=== PATIENT | female | born 1965 | race Caucasian/White ===

== ENCOUNTER 2019-08-01 15:15 | Emergency (ER) | payer OTHER, SELFPAY ==
--- NOTE | ~2019-08-01 | XR_ITS ---
EXAMINATION: XR chest 2V DATE: 08/01/2019 17:01 INDICATION: Transient alteration of awareness TECHNIQUE: AP and lateral views of the chest are obtained. COMPARISON: 07/31/2016 FINDINGS: The lungs are free of acute opacities. There is no pleural effusion or pneumothorax. The ca rdiomediastinal silhouette is normal. There is mild thoracic spondylosis. IMPRESSION: 1. No acute cardiopulmonary abnormality. Reviewed, dictated and finalized at location A.
--- NOTE | ~2019-08-01 | CT_ITS ---
EXAMINATION: CT brain wo con INDICATION: Transient alteration of awareness COMPARISON: None TECHNIQUE: Standard unenhanced head CT. The dose-length product (DLP) was 605.33 mGy-cm. The mA was a djusted according to patient size. Iterative reconstruction technique was employed. FINDINGS: There is no acute intraparenchymal hemorrhage. No evidence of mass lesion. No evidence of a cute infarction. There is mild periventricular and subcortical hypodensity probably related to small vessel ischemic disease. There is mild prominence of the sulci and ventricles related to cerebral atr ophy. Intracranial calcified cerebral atherosclerosis is noted. There are no extra-axial collections. There is no mass effect or midline shift. The orbits and soft tissues are unremarkable. The visuali zed sinuses and mastoid air cells are well aerated. IMPRESSION: 1. No acute intracranial abnormality. 2. Age related findings. Reviewed, dictated and finalized at location A.
[2019-08-01 15:16] VITALS: BP 125/67; PULSE 65; RESP 20; TEMP 36.6; O2SAT 100
--- NOTE | 2019-08-01 15:39 | ECG_ITS ---
Measurements Intervals [place] Rate: 64 P: -2 AL: 151 QRS: -28 QRSD: 94 T: 64 QT: 405 QTc: 420 Interpretive Statements SINUS RHYTHM VOLTAGE CRITERIA FOR LVH BORDERLINE R WAVE PROGRESSION, ANTERIOR LEADS BORDERLINE ECG Electronically Signed On 08-02-2019 7:12:55 CDT by Ruel Castanon D.O.
[2019-08-01 15:59] LABS: Basophils Percent Auto 0.6 % (0.2-1.2); Eosinophils Absolute Auto 0.4 K/mm3 (0-0.3); Eosinophils Percent Auto 5.4 % (0-4.4); Hematocrit 34.1 % (37.0-47.0); Hemoglobin 11.6 g/dL (12.0-15.0); Immature Granulocyte Absolute 0.02 K/mm3 (0.00-0.031); Immature Granulocyte Percent A 0.3 % (0-0.5); Lymphocytes Absolute Auto 0.97 K/mm3 (0.9-3.2); Lymphocytes Percent Auto 14.3 % (18.3-44.2); Mean Corpuscular Hemoglobin 30.1 pg (26-34); Mean Corpuscular Volume 88.6 fl (80-100); Monocytes Absolute Auto 0.3 K/mm3 (0.1-0.6); Monocytes Percent Auto 3.7 % (2.6-8.5); Neutrophils Absolute Auto 5.2 K/mm3 (1.3-6.7); Neutrophils Percent Auto 75.7 % (45.5-73.1); Platelet Count Result 232 k/mm3 (150-375); Red Blood Count 3.85 M/mm3 (4.2-5.4); White Blood Count 6.8 K/mm3 (4.5-10.0)
--- NOTE | 2019-08-01 16:04 | ED.SYNCOPE ---
HPI - Syncope General Chief Complaint: Syncope Stated Complaint: SYNCOPE Time Seen by Provider: 08/01/19 15:28 Source: patient Mode of arrival: EMS Limitations: no limitations History of Present Illness HPI narrative: This is a 54 year old female that presents to the ER for syncopal episode today. Reports she was at her endocrinologists office and they were finishing up her appointment. Reports she started to feel lightheaded. Reports she had a mask on for about an hour and was getting hot as well. Reports she then passed out. Reports she came back to quickly and then vomited. Reports she then passed out again and came back to quickly. Reports she was sent here for further evaluation. Denies any symptoms currently. Denies fever, palpitations, chest pain, shortness of breath, dizziness, weakness, or numbness. Related Data Home Medications Medication Instructions Recorded Confirmed aspirin 81 mg tablet,delayed 81 mg PO DAILY 08/01/19 08/01/19 release blood sugar diagnostic #10 each 08/01/19 carvedilol 6.25 mg tablet 6.25 mg PO Q12H 08/01/19 clopidogrel 75 mg tablet 75 mg PO DAILY 08/01/19 08/01/19 ergocalciferol (vitamin D2) 1,250 1,250 mcg PO WEEKLY 08/01/19 08/01/19 mcg (50,000 unit) capsule folic acid 1 mg tablet 5 mg PO DAILY tablet 08/01/19 08/01/19 insulin lispro 100 unit/mL 100 - 120 unit CONTINUOUS 08/01/19 08/01/19 subcutaneous solution SUBCUTANEOUS INFUSION DAILY ml lorazepam 0.5 mg tablet 0.5 mg PO DAILY PRN 08/01/19 losartan 50 mg tablet 50 mg PO DAILY 08/01/19 methotrexate sodium 2.5 mg tablet 15 mg PO WEEKLY tablet 08/01/19 rosuvastatin 5 mg tablet 5 mg PO DAILY 08/01/19 Allergies Allergy/AdvReac Type Severity Reaction Status Date / Time itraconazole Allergy Mild Verified 07/31/16 07:33 Lamisil Allergy Unknown flushing Uncoded 08/30/18 13:35 Review of Systems Review of Systems: Narrative: CONSTITUTIONAL: Denies fever CARDIOVASCULAR: Denies chest pain, palpitations RESPIRATORY: Denies dyspnea. GASTROINTESTINAL: Reports nausea, vomiting NEUROLOGIC: Denies headache, numbness, or weakness. 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 HEAD: Normocephalic, atraumatic. EYES: PERRLA and EOMI. ENT: Nares clear, no rhinorrhea or epistaxis. Mucous membranes moist. Oropharynx without tonsillar hypertrophy exudate or other lesions. Bilateral TMs pearly valadez non-bulging NECK: Supple. No adenopathy or masses. CHEST: Clear to auscultation. No respiratory distress. No wheezes rales or rhonchi HEART: Regular rate and rhythm. No murmur heard. Normal peripheral pulses. EXTREMITIES: Normal range of motion. No edema. Strength equal in bilateral upper and lower extremities SKIN: Warm, dry, no rash. NEURO: No focal deficits. Alert and oriented x3. Cranial nerves II through XII grossly intact. Normal [id number]. Normal [id number] PSYCH: Normal mood and affect Course Consultations Consultation #1: Spoke with Dr. Norris about patient and work-up will follow-up in clinic. Date: 08/01/19 Time: 17:59 Vital Signs Vital signs: Vital Signs Temperature 97.8 F 08/01/19 15:16 Pulse Rat
[2019-08-01 16:11] LABS: Alanine Aminotransferase 21 U/L (4-35); Albumin Level 3.3 g/dL (3.5-5.1); Alkaline Phosphatase 70 U/L (38-126); Aspartate Amino Transferase 24 U/L (14-36); Bilirubin,Total 0.4 mg/dL (0.2-1.3); Blood Urea Nitrogen 29 mg/dL (7-17); Calcium 8.6 mg/dL (8.4-10.2); Carbon Dioxide 22 mmol/L (22-30); Chloride 109 mmol/L (98-107); Estimated CRCL calculation 39 ml/min; Estimated Glomerular Filt Rate 33; Glucose 159 mg/dL (65-105); Potassium 4.4 mmol/L (3.4-5.0); Sodium 136 mmol/L (137-145)
[2019-08-01 16:14] LABS: Hypochromasia 1+ (NORMAL); Platelet Estimate Adequate (Adequate)
[2019-08-01 16:22] LABS: Troponin I < 0.012 ng/mL (0.000-0.034)
[2019-08-01] MEDS: SODIUM CHLORIDE 0.9% IV 1,000 ML 999 ML IV CONT (16:27)
[2019-08-01 17:20] VITALS: BP 163/80; PULSE 66
[2019-08-01 17:22] VITALS: BP 163/78
[2019-08-01 17:23] VITALS: BP 149/77; PULSE 73
== END 2019-08-01 18:11 | disposition home or self-care (01) ==
PROVIDERS: Physician Assistant; Emergency Provider Emergency Medicine; PCP Family Medicine Adolescent Medicine
DX: R55 Syncope and collapse (principal); I10 Essential (primary) hypertension; M06.9 Rheumatoid arthritis, unspecified; E78.00 Pure hypercholesterolemia, unspecified; Z79.82 Long term (current) use of aspirin; E11.9 Type 2 diabetes mellitus without complications; Z79.4 Long term (current) use of insulin
CPT/HCPCS: 36415; 70450; 71046; 80053; 84484; 85025; 93005; 96360; 99284; J7030

== ENCOUNTER 2020-10-31 20:36 | Emergency (ER) | payer BC, SELFPAY ==
--- NOTE | ~2020-10-31 | XR_ITS ---
XR chest 2V DATE: 10/31/2020 21:07 INDICATION: Midsternal chest pain, jaw pain for one day. History of myocardial infarctions 6 years ag o. TECHNIQUE: PA and lateral views COMPARISON: 08/01/2019 AP and lateral chest FINDINGS: There is left basilar infiltrate and/or atelectasis and mild left pleural effusion. Minimal atelectasis at the right lung base. Heart size appears normal. No hilar or mediastinal enlargement. IMPRESSION: Left basilar infiltrate and/or atelectasis, mild left pleural effusion Minimal right basilar atelectasis Reviewed, dictated and finalized at location A. IMPRESSION: Left basilar infiltrate and/or atelectasis, mild left pleural effus ion Minimal right basilar atelectasis
--- NOTE | 2020-10-31 20:38 | ECG_ITS ---
Measurements Intervals [place] Rate: 88 P: 33 [place]: 145 QRS: -8 QRSD: 86 T: 68 QT: 366 QTc: 443 Interpretive Statements SINUS RHYTHM VOLTAGE CRITERIA FOR LVH BORDERLINE R WAVE PROGRESSION, ANTERIOR LEADS BORDERLINE ST-T WAVE ABNORMALITY- HIGH LATERAL LEADS BORDERLINE ECG Electronically Signed On 10-31-2020 20:46:39 CDT by Ruel Castanon D.O.
[2020-10-31 20:47] VITALS: BP 181/92; PULSE 85; RESP 16; TEMP 36.7; O2SAT 100
[2020-10-31 20:58] LABS: Basophils Absolute Auto 0.1 K/mm3 (0.0-0.1); Basophils Percent Auto 0.5 % (0.2-1.2); Eosinophils Absolute Auto 0.3 K/mm3 (0-0.3); Eosinophils Percent Auto 2.4 % (0-4.4); Hematocrit 35.2 % (37.0-47.0); Hemoglobin 11.1 g/dL (12.0-15.0); Immature Granulocyte Absolute 0.06 K/mm3 (0.00-0.031); Immature Granulocyte Percent A 0.5 % (0-0.5); Mean Corpuscular HGB Conc 31.5 g/dl (32-36); Mean Corpuscular Hemoglobin 28.3 pg (26-34); Mean Corpuscular Volume 89.8 fl (80-100); Mean Platelet Volume 9.3 fl (7.4-10.4); Monocytes Absolute Auto 0.6 K/mm3 (0.1-0.6); Monocytes Percent Auto 4.4 % (2.6-8.5); Neutrophils Percent Auto 80.2 % (45.5-73.1); Platelet Count Result 284 k/mm3 (150-375); Red Blood Count 3.92 M/mm3 (4.2-5.4); Red Cell Distribution Width 15.5 % (11.5-14.5); White Blood Count 12.5 K/mm3 (4.5-10.0)
[2020-10-31 21:10] LABS: Partial Thromboplastin Time 22.1 SECONDS (22.3-36.8); Prothrombin Time 12.8 Seconds (11.1-14.7)
[2020-10-31 21:12] LABS: Anion Gap 9 mmol/L (8-16); Blood Urea Nitrogen 33 mg/dL (7-17); Calcium 8.5 mg/dL (8.4-10.2); Carbon Dioxide 20 mmol/L (22-30); Chloride 105 mmol/L (98-107); Estimated CRCL calculation 31 ml/min; Estimated Glomerular Filt Rate 24; Glucose 123 mg/dL (65-110); Potassium 3.9 mmol/L (3.4-5.0); Sodium 134 mmol/L (137-145)
[2020-10-31 21:24] LABS: Troponin I < 0.012 ng/mL (0.000-0.034)
[2020-11-01 00:03] VITALS: PULSE 83
--- NOTE | 2020-11-01 00:04 | PC.NURSE ---
pt to ED c/o bilateral jaw pain starting this am. Now also c/o sore throat. speech clear. able to speak in full sentences without distress/difficulty. also c/o having cp since approx. 1830.
[2020-11-01 00:07] VITALS: BP 162/82; PULSE 85; RESP 22; O2SAT 100
[2020-11-01 00:47] LABS: NT Pro B Type Natriuretic Pept 439 pg/mL (5-100); Troponin I < 0.012 ng/mL (0.000-0.034)
[2020-11-01] MEDS: LIDOCAINE HCL 2% VISC SOLN 15 ML UDC PO (01:30)
[2020-11-01] MEDS: ASPIRIN 81 MG CHEWABLE TABLET 324 MG PO (01:30)
--- NOTE | 2020-11-01 02:18 | PC.NURSE ---
Pt reports she feels much better after PO viscous lido. No current pain. a/o x 4. resps even/nonlabored.
[2020-11-01 02:19] VITALS: PULSE 83; RESP 20; O2SAT 99
[2020-11-01 03:12] VITALS: PULSE 80; RESP 21; O2SAT 100
--- NOTE | 2020-11-01 03:16 | ED.GENADULT ---
HPI - General Adult General Chief complaint: Chest Pain Stated complaint: chest pain Time Seen by Provider: 11/01/20 00:00 History of Present Illness HPI narrative: Patient is a 55-year-old female with history of NC that presents ER with left jaw pain. Ongoing over the last day. Has a feeling of a lump in her throat and symptoms worsen when she lays down flat. No shortness of breath. Denies fevers or chills or sweats. No exertional chest pain or chest pressure. Has not found any alleviating factors. Related Data Home Medications Medication Instructions Recorded Confirmed aspirin 81 mg tablet,delayed 81 mg PO DAILY 08/01/19 11/22/19 release carvedilol 6.25 mg tablet 6.25 mg PO Q12H 08/01/19 11/22/19 clopidogrel 75 mg tablet 75 mg PO DAILY 08/01/19 11/22/19 folic acid 1 mg tablet 5 mg PO DAILY tablet 08/01/19 11/22/19 lorazepam 0.5 mg tablet 0.5 mg PO DAILY PRN 08/01/19 11/22/19 losartan 50 mg tablet 50 mg PO DAILY 08/01/19 11/22/19 methotrexate sodium 2.5 mg tablet 15 mg PO WEEKLY tablet 08/01/19 11/22/19 ergocalciferol (vitamin D2) 1,250 50,000 unit PO WEEKLY cap 08/03/19 11/22/19 mcg (50,000 unit) capsule rosuvastatin 5 mg tablet 5 mg PO QPM tablet 08/03/19 11/22/19 subcutaneous insulin pump #1 each 08/03/19 11/22/19 fluoxetine 10 mg capsule 10 mg PO DAILY 11/22/19 11/22/19 Allergies Allergy/AdvReac Type Severity Reaction Status Date / Time itraconazole Allergy Mild Verified 07/31/16 07:33 Lamisil Allergy Unknown flushing Uncoded 08/30/18 13:35 Review of Systems Review of Systems: All systems reviewed & are unremarkable except as noted in HPI and below Constitutional: Constitutional: Denies chills, Denies fever(s) and Denies weakness ENT: Denies nasal congestion and Denies sore throat Comments: Lump in throat, jaw pain Cardiovascular: Cardiovascular: Denies chest pain, Denies rapid heart rate and Denies radiating jaw, neck or arm pain Respiratory: Respiratory: Denies cough and Denies dyspnea Gastrointestinal: Gastrointestinal: Denies abdominal pain, Denies nausea and Denies vomiting Musculoskeletal: Musculoskeletal: Denies back pain and Denies muscle cramps PMFSH Past Medical History Medical History (Updated 11/01/20 @ 03:22 by Ashwin Gonzalez MD) Essential hypertension History of rheumatoid arthritis Pure hypercholesterolemia, unspecified Type 2 diabetes mellitus with hyperglycemia, with long-term current use of insulin Family History Family History Father Hypertension Family history of coronary artery disease Family history of heart disease in male family member before age 55 Grandparent Cerebrovascular accident Diabetes mellitus Mother Family history of arthritis Family history of heart disease in male family member before age 55 Social History Social History Smoking status: Never smoker Second hand tobacco smoke exposure: No Alcohol intake: never Substance use: never Substance use type: does not use Additional living arrangements comments: lives with 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 HEAD: Normocephalic, atraumatic. ENT: Mucous membranes moist. No dental abscess noted. TMs normal bilaterally. NECK: Supple. CHEST: Clear to auscultation. No respiratory distress. HEART: Regular rate and rhythm. Normal peripheral pulses. ABDOMEN: Soft, nontender, nondistended. EXTREMITIES: Normal range of motion. No edema. SKIN: Warm, dry, no rash. NEURO: Alert and oriented x3. Course Course Emergency Course: Troponins negative x2. Symptoms resolved with GI cocktail. Suspect patient is having acid reflux as her symptoms worsens when she lays backwards. Will discharge with reflux
== END 2020-11-01 03:59 | disposition home or self-care (01) ==
PROVIDERS: Emergency Medicine; Emergency Provider Emergency Medicine; PCP Family Medicine Adolescent Medicine
DX: K21.9 Gastro-esophageal reflux disease without esophagitis (principal); I25.2 Old myocardial infarction; I10 Essential (primary) hypertension; M06.9 Rheumatoid arthritis, unspecified; E78.00 Pure hypercholesterolemia, unspecified; E11.9 Type 2 diabetes mellitus without complications; Z79.4 Long term (current) use of insulin; R94.31 Abnormal electrocardiogram [ECG] [EKG]; Z79.82 Long term (current) use of aspirin
CPT/HCPCS: 36415; 71046; 80048; 83880; 84484; 85025; 85610; 85730; 93005; 99284; A9270

== ENCOUNTER 2020-12-16 16:58 | Outpatient (CLI) | payer BC, SELFPAY ==
--- NOTE | ~2020-12-16 | XR_ITS ---
EXAMINATION: XR chest 2V EXAM DATE: 12/16/2020 17:18 INDICATION: Dyspnea on exertion X 4 WKS,Hx Lung Spots,Heart Attack. TECHNIQUE: Frontal and lateral projections of the chest obtained and reviewed. Comparison is made to prior examination from 10/31/2020. FINDINGS: Interval increase in size of the previously seen left pleural effusion, now moderate to la rge. There is adjacent airspace disease at least partly atelectasis. Can't exclude underlying cancer or pneumonia. Given there is been progression, consider follow-up chest CT with contrast. Cardiomediastinal silhouette is normal. There are no osseous abnormalities identified. IMPRESSION: Progression of pleural effusion and adjacent left lower lobe airspace disease at least pa rtly atelectasis. Consider follow-up chest CT with contrast for better characterization. Reviewed, dictated and finalized at location A. IMPRESSION: Progression of pleural effusion and adjacent left lower lobe airspa ce disease at least partly atelectasis. Consider follow-up chest CT with contra st for better characterization.
== END 2020-12-16 16:59 | disposition home or self-care (01) ==
LOC: ANHIMG 17:03
PROVIDERS: PCP Family Medicine Adolescent Medicine; Visit Provider Nurse Practitioner Adult Health
DX: R06.00 Dyspnea, unspecified (principal)
CPT/HCPCS: 71046

== ENCOUNTER 2020-12-19 08:38 | Outpatient (CLI) | payer BC, SELFPAY ==
--- NOTE | ~2020-12-19 | CT_ITS ---
EXAMINATION:CT diagnostic chest wo con DATE: 12/19/2020 08:58 INDICATION: Shortness of breath. Left pleural effusion. TECHNIQUE: Computed tomography (CT) of the chest was performed without intravenous contrast. Automate d exposure control and iterative reconstruction technique were employed. The dose-length product (DLP ) was 367.12 mGy-cm. COMPARISON: Chest CT 05/07/2016, chest two views 12/16/20 FINDINGS: There is a large left pleural effusion. There is compressive atelectasis involving much of left lung. There are multiple scattered nodules in right lung measuring up to 8 mm. Cardiomegaly is n oted. No pericardial effusion. There are gallstones in the gallbladder, which is normal in size. Ther e is mild thoracic spondylosis. IMPRESSION: 1. Large left pleural effusion, worsened from 12/16/20. Consider thoracentesis. 2. Nodules in right lung measuring up to 8 mm, some of which are new from 05/07/2016. A lung biopsy on 03/12/2016 demonstrated chronic pneumonitis consistent with organizing pneumonia. The current findin gs may be benign or malignant. Consider noncontrast chest CT in 3 months. Reviewed, dictated and finalized at location A. IMPRESSION: 1. Large left pleural effusion, worsened from 12/16/20. Consider thoracentesis. 2. Nodules in right lung measuring up to 8 mm, some of which are new from 2016. A lung biopsy on 03/12/2016 demonstrated chronic pneumonitis consistent w ith organizing pneumonia. The current findings may be benign or malignant. Cons ider noncontrast chest CT in 3 months.
== END 2020-12-19 08:39 | disposition home or self-care (01) ==
PROVIDERS: PCP Family Medicine Adolescent Medicine; Referring Provider Nurse Practitioner Adult Health; Visit Provider Family Medicine Adolescent Medicine
DX: J90 Pleural effusion, not elsewhere classified (principal); R91.8 Other nonspecific abnormal finding of lung field
CPT/HCPCS: 71250

== ENCOUNTER 2020-12-29 09:13 | Outpatient (CLI) | payer BC, SELFPAY ==
--- NOTE | ~2020-12-29 | XR_ITS ---
EXAMINATION: [id number] DATE: 12/29/2020 11:27 INDICATION: Left pleural effusion status post thoracentesis. TECHNIQUE: A single frontal view of the chest was obtained. COMPARISON: Chest 2 views 12/16/2020, chest CT 12/19/2020 FINDINGS: There is a moderate-sized left pleural effusion. There are airspace opacities in left mid a nd lower lung zones. No pneumothorax. The heart size is normal. IMPRESSION: 1. Moderate-sized left pleural effusion with improvement status post thoracentesis. 2. Airspace opacities in left mid and lower lung zones, consistent with atelectasis or less likely pn eumonia. Reviewed, dictated and finalized at location A. IMPRESSION: 1. Moderate-sized left pleural effusion with improvement status post thoracente sis. 2. Airspace opacities in left mid and lower lung zones, consistent with atelect asis or less likely pneumonia.
--- NOTE | ~2020-12-29 | US_ITS ---
EXAMINATION: US thoracentesis DATE: 12/29/2020 11:31 INDICATION: pleural effusion TECHNIQUE: The procedure and its risks, benefits, and alternatives were discussed with the patient. P otential risks discussed included bleeding, infection, and pneumothorax. The patient understood the r isks and agreed to proceed. The skin was prepped and draped in sterile fashion. 1% lidocaine was used for local anesthesia. Under ultrasound guidance, a 5 Fr catheter with trochar was advanced into the left pleural effusion. Fluid was aspirated. The catheter was removed, and a dressing was applied. The re were no immediate complications. FINDINGS: Ultrasound images demonstrate a left pleural effusion and the catheter within the fluid. IMPRESSION: 1. Successful ultrasound-guided thoracentesis yielding 1000 mL of clear, balta-colored fluid. Reviewed, dictated and finalized at location A. IMPRESSION: 1. Successful ultrasound-guided thoracentesis yielding 1000 mL of clear, balta -colored fluid.
[2020-12-29 10:12] LABS: Mean Platelet Volume 9.5 fl (7.4-10.4); Platelet Count Result 320 k/mm3 (150-375)
[2020-12-29 10:23] LABS: Prothrombin Time 13.3 Seconds (11.1-14.7)
[2020-12-29 11:29] VITALS: BP 163/95; BP 203/103; PULSE 62; PULSE 63; RESP 16; O2SAT 100
[2020-12-29 12:42] LABS: Appearance Pleural Fluid Cloudy (Clear); Color Pleural Fluid Yellow (Colorless); Lymphocytes Pleural Fluid 96 %; Monocytes Pleural Fluid 3 %; Pleural fluid source Pleural fluid
[2020-12-29 12:43] LABS: Other Cells Pleural Fluid 1 %
[2020-12-29 14:43] LABS: Nucleated Cell Pleural Fluid 2208 /uL (0-1000); RBC Pleural Fluid 7237 /uL (0-0)
[2020-12-31 20:46] LABS: LDH Pleural Fluid 262 U/L; Total Protein Pleural Fluid <3.0 g/dL
== END 2020-12-29 09:14 | disposition home or self-care (01) ==
PROVIDERS: Radiology Diagnostic Radiology; PCP Family Medicine Adolescent Medicine; Visit Provider Family Medicine Adolescent Medicine
DX: J90 Pleural effusion, not elsewhere classified (principal)
CPT/HCPCS: 32555; 36415; 83615; 84157; 85049; 85610; 88104; 88108; 88184; 88305; 89051

== ENCOUNTER 2021-05-18 16:20 | Outpatient (CLI) | payer BC, SELFPAY ==
--- NOTE | ~2021-05-18 | XR_ITS ---
EXAMINATION: XR chest 2V DATE: 05/18/2021 16:48 INDICATION: Cough and dyspnea TECHNIQUE: PA and lateral views of the chest were obtained. COMPARISON: Chest radiograph dated 12/29/2020 FINDINGS: Opacity left lower lung zone with blunting at the costophrenic angle and posterior sulcus consistent with small left pleural effusion and associated atelectasis and/or pneumonia. No pneumothorax or righ t-sided pleural effusion. Cardiomediastinal silhouette is normal. Mild thoracic spondylosis. IMPRESSION: 1. Small left pleural effusion, decreased in size since the prior study, with associated left basilar atelectasis and/or pneumonia. Reviewed, dictated and finalized at location A. OPERATOR IMPRESSION: 1. Small left pleural effusion, decreased in size since the prior study, with a ssociated left basilar atelectasis and/or pneumonia.
== END 2021-05-18 16:21 | disposition home or self-care (01) ==
LOC: ANHIMG 16:25
PROVIDERS: PCP Family Medicine Adolescent Medicine; Visit Provider Family Medicine Adolescent Medicine
DX: R06.00 Dyspnea, unspecified (principal); J90 Pleural effusion, not elsewhere classified; R91.8 Other nonspecific abnormal finding of lung field
CPT/HCPCS: 71046

== ENCOUNTER 2021-05-23 13:16 | Emergency (ER) | payer BC, SELFPAY ==
[2021-05-23 13:23] VITALS: BP 149/64; PULSE 91; RESP 16; TEMP 37.6; O2SAT 99
--- NOTE | 2021-05-23 13:51 | ED.GENADULT ---
HPI - General Adult General Chief complaint: Allergic Reaction Stated complaint: ALLERGIC REACTION Time Seen by Provider: 05/23/21 13:29 Source: patient and RN notes reviewed Mode of arrival: ambulatory Limitations: no limitations History of Present Illness HPI narrative: Patient presents today complaining of swelling to her lips and the sides of her tongue as well as sores to the inner lower lip x4 days after starting on Levaquin for pneumonia. She denies shortness of breath or difficulty swallowing. Patient had COVID-19 last month as well. She has been using Carmex on her cracked lips with mild relief. States she did not want to stop the antibiotics because her PCP stressed how important was her to finish the whole course. She has not reached out to her PCP regarding the symptoms. MD complaint: Swollen lips Related Data Home Medications Medication Instructions Recorded Confirmed aspirin 81 mg tablet,delayed 81 mg PO DAILY 08/01/19 12/25/20 release clopidogrel 75 mg tablet 75 mg PO DAILY 08/01/19 12/25/20 lorazepam 0.5 mg tablet 0.5 mg PO DAILY PRN 08/01/19 12/25/20 losartan 50 mg tablet 75 mg PO DAILY 08/01/19 12/25/20 methotrexate sodium 2.5 mg tablet 15 mg PO WEEKLY tablet 08/01/19 12/25/20 rosuvastatin 5 mg tablet 20 mg PO DAILY tablet 08/03/19 12/25/20 subcutaneous insulin pump #1 each 08/03/19 11/22/19 metoprolol succinate 50 mg PO DAILY 12/25/20 12/25/20 Vitamin C 05/23/21 Zinc 05/23/21 ergocalciferol (vitamin D2) 05/23/21 furosemide 05/23/21 Allergies Allergy/AdvReac Type Severity Reaction Status Date / Time itraconazole Allergy Mild Itching Verified 12/25/20 15:14 Lamisil Allergy Unknown flushing Uncoded 12/25/20 15:14 Review of Systems Review of Systems: CONSTITUTIONAL: Denies body aches, fever, chills, or sweats. EYES: Denies visual changes, redness, or discharge. ENT: Denies rhinorrhea, congestion, sore throat, or otalgia. +Swollen lips and tongue CARDIOVASCULAR: Denies chest pain, palpitations, or edema. RESPIRATORY: Denies cough or dyspnea. GASTROINTESTINAL: Denies abdominal pain, nausea, vomiting, or diarrhea. GENITOURINARY: Denies dysuria or hematuria. SKIN: Denies rash, itching, or wounds. MUSCULOSKELETAL: Denies back pain, joint pain, or myalgia. NEUROLOGIC: Denies headache, numbness, tingling, or weakness. PSYCH: Denies depression or anxiety. [facility] Past Medical History Medical History (Updated 05/23/21 @ 13:57 by Rosa Licona, SHIRLEY, BC) Essential hypertension History of rheumatoid arthritis Pure hypercholesterolemia, unspecified Type 2 diabetes mellitus with hyperglycemia, with long-term current use of insulin Family History Family History Father Hypertension Family history of coronary artery disease Family history of heart disease in male family member before age 55 Grandparent Cerebrovascular accident Diabetes mellitus Mother Family history of arthritis Family history of heart disease in male family member before age 55 Social History Social History Smoking status: Never smoker Second hand tobacco smoke exposure: No Alcohol intake: never Substance use: never Substance use type: does not use Additional living arrangements comments: lives with 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 Please see nursing chart for further information. There is no relevant family history pertinent to the presenting complaint Exam Narrative: GENERAL: Well-appearing, well-nourished, and in no acute distress. HEAD: Normocephalic, atraumatic. EYES: EOMI. No redness or drainage. Conjunctivae normal. ENT: Muc
== END 2021-05-23 14:06 | disposition home or self-care (01) ==
PROVIDERS: Emergency Provider Nurse Practitioner; PCP Family Medicine Adolescent Medicine
DX: R22.0 Localized swelling, mass and lump, head (principal); T36.8X5A Adverse effect of other systemic antibiotics, initial encounter; I10 Essential (primary) hypertension; M06.9 Rheumatoid arthritis, unspecified; E78.00 Pure hypercholesterolemia, unspecified; E11.9 Type 2 diabetes mellitus without complications; Z79.4 Long term (current) use of insulin; Z79.82 Long term (current) use of aspirin; Z86.16 Personal history of COVID-19
CPT/HCPCS: 99213; G0463

== ENCOUNTER 2021-05-28 18:00 | Emergency (ER) | payer OTHER, BC, SELFPAY ==
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
[2021-05-28 18:02] VITALS: BP 132/69; PULSE 82; RESP 16; TEMP 36.9; O2SAT 98
--- NOTE | 2021-05-28 18:11 | PC.NURSE ---
Dr. Smiley at bedside to assess pt.
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
--- NOTE | 2021-05-28 19:15 | PC.NURSE ---
Patient report given to MARTINEZ Alvarez. All questions answered and care of patient transferred.
[2021-05-28] MEDS: HYDROcodone/acetaminophen (*CRX) 5-325 MG TABLET 1 TAB PO (20:04)
--- NOTE | 2021-05-28 20:15 | PC.NURSE ---
Alba from [facility] called to follow up with mother of child. DCFS will call and visit tomorrow.
[2021-05-28 20:25] VITALS: BP 130/56; PULSE 75; RESP 16; TEMP 36.9; O2SAT 99
--- NOTE | 2021-06-08 15:16 | PC.NURSE ---
LATE ENTRY This note is being entered to document information to the patient's record. The following information was omitted on [05/28/21], by [Antonio]. R lower leg splint applied.
== END 2021-05-28 20:28 | disposition home or self-care (01) ==
PROVIDERS: Emergency Provider Emergency Medicine; PCP Family Medicine Adolescent Medicine
DX: S82.54XA Nondisplaced fracture of medial malleolus of right tibia, initial encounter for closed fracture (principal); S80.11XA Contusion of right lower leg, initial encounter; I10 Essential (primary) hypertension; M06.9 Rheumatoid arthritis, unspecified; E78.00 Pure hypercholesterolemia, unspecified; E11.9 Type 2 diabetes mellitus without complications; N28.9 Disorder of kidney and ureter, unspecified; Z79.4 Long term (current) use of insulin; Z79.82 Long term (current) use of aspirin; M17.11 Unilateral primary osteoarthritis, right knee; M85.871 Other specified disorders of bone density and structure, right ankle and foot; M77.9 Enthesopathy, unspecified; V49.40XA Driver injured in collision with unspecified motor vehicles in traffic accident, initial encounter
CPT/HCPCS: 29515; 73564; 73590; 73610; 73630; 99284; A9270

== ENCOUNTER 2021-08-31 13:31 | Emergency (ER) | payer BC, SELFPAY ==
--- NOTE | ~2021-08-31 | XR_ITS ---
EXAMINATION: XR chest 2V Exam Date/Time: 08/31/2021 13:55 CDT HISTORY: cough for 2 days, dimished in lt upper lung Comparison: 05/18/2021. RESULT: Lines, tubes, and devices: None. Lungs and pleura: Slightly increased lower lung and peripheral groundglass and linear opacities. Unc hanged left angle blunting. Cardiomediastinal silhouette: Stable cardiomediastinal silhouette. Other: No acute osseous or upper abdominal finding. IMPRESSION: Increased bilateral atelectasis or consolidation, to include atypical/viral infection. Chronic left p leural blunting versus small pleural effusion. Reviewed, dictated and finalized at location K. IMPRESSION: Increased bilateral atelectasis or consolidation, to include atypical/viral inf ection. Chronic left pleural blunting versus small pleural effusion.
[2021-08-31 13:44] VITALS: BP 137/66; PULSE 99; RESP 18; TEMP 37.2; O2SAT 96
--- NOTE | 2021-08-31 13:51 | ED.URI ---
HPI - URI/Sore Throat General Chief Complaint: Upper Respiratory Infection Stated Complaint: Congestion,Cough Time Seen by Provider: 08/31/21 13:51 Source: patient Mode of arrival: ambulatory Limitations: no limitations History of Present Illness HPI Narrative: 56 yo F presents with c/o productive cough, SOB with exertion, fever 102F, headaches and bodyaches for 4 days. PCR covid test was negative. Taking dayquil/nyquil with no relief. concerned she might have pneumonia. Denies CP. No sick contacts. All systems reviewed and negative except as noted above. Related Data Home Medications Medication Instructions Recorded Confirmed aspirin 81 mg tablet,delayed 81 mg PO DAILY 08/01/19 08/31/21 release (Adult Aspirin Regimen) clopidogrel 75 mg tablet 75 mg PO DAILY 08/01/19 08/31/21 lorazepam 0.5 mg tablet 0.5 mg PO DAILY PRN Anxiety 08/01/19 08/31/21 losartan 50 mg tablet 75 mg PO DAILY 08/01/19 08/31/21 methotrexate sodium 2.5 mg tablet 15 mg PO WEEKLY 08/01/19 08/31/21 rosuvastatin 5 mg tablet 20 mg PO DAILY 08/03/19 08/31/21 subcutaneous insulin pump ([employer] #1 ea 08/03/19 08/31/21 630G Insulin Pump) metoprolol succinate 50 mg 50 mg PO DAILY 12/25/20 08/31/21 tablet,extended release 24 hr Vitamin C 1 tab-cap PO DAILY 05/23/21 08/31/21 Zinc 1 tab-cap PO DAILY 05/23/21 08/31/21 ergocalciferol (vitamin D2) 1,250 1,250 mcg PO DAILY 05/23/21 08/31/21 mcg (50,000 unit) capsule furosemide 40 mg tablet 40 mg PO DAILY 05/23/21 08/31/21 Allergies Allergy/AdvReac Type Severity Reaction Status Date / Time itraconazole Allergy Mild Itching Verified 08/31/21 13:34 levofloxacin [From Levaquin] Allergy Swelling Verified 08/31/21 13:34 of Lip/Tongue/Throat Lamisil Allergy Unknown flushing Uncoded 08/31/21 13:34 Review of Systems Review of Systems: CONSTITUTIONAL: Reports fever. Denies chills, or sweats. EYES: Denies visual changes, redness, or discharge. ENT: Denies rhinorrhea, congestion, sore throat, or otalgia. CARDIOVASCULAR: Denies chest pain, palpitations, or edema. RESPIRATORY: Reports cough and dyspnea on exertion GASTROINTESTINAL: Denies abdominal pain, nausea, vomiting, or diarrhea. GENITOURINARY: Denies dysuria or hematuria. SKIN: Denies rash or itching. MUSCULOSKELETAL: Denies back pain, joint pain, or myalgia. NEUROLOGIC: Reports headache. Denies numbness, or weakness. PSYCHIATRIC: Denies anxiety or depression. All other systems reviewed are negative, except as documented in HPI. [facility] Past Medical History Medical History (Updated 08/31/21 @ 14:18 by Tami Hector, LACY) Essential hypertension History of rheumatoid arthritis Pure hypercholesterolemia, unspecified Type 2 diabetes mellitus with hyperglycemia, with long-term current use of insulin Family History Family History Father Hypertension Family history of coronary artery disease Family history of heart disease in male family member before age 55 Grandparent Cerebrovascular accident Diabetes mellitus Mother Family history of arthritis Family history of heart disease in male family member before age 55 Social History Social History Smoking status: Never smoker Second hand tobacco smoke exposure: No Alcohol intake: never Substance use: never Substance use type: does not use Additional living arrangements comments: lives with 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 There is no relevant family history pertinent to the presenting complaint. Course Course Level of Care: Express Care Visit Vital Signs Vital signs: Vital Signs Temperature 37.2 C 08/31/21 13:44 Pulse Rate 99 08/31/21 13:44 Respirator
== END 2021-08-31 14:32 | disposition home or self-care (01) ==
PROVIDERS: Emergency Provider Nurse Practitioner Family; PCP Family Medicine Adolescent Medicine
DX: J18.9 Pneumonia, unspecified organism (principal); I10 Essential (primary) hypertension; M06.9 Rheumatoid arthritis, unspecified; E78.00 Pure hypercholesterolemia, unspecified; E11.9 Type 2 diabetes mellitus without complications; Z79.4 Long term (current) use of insulin; Z79.82 Long term (current) use of aspirin
CPT/HCPCS: 71046; 87804; 99213; G0463

== ENCOUNTER → 2021-09-08 10:26 | Outpatient (CLI) | payer BC, SELFPAY ==
--- NOTE | ~2021-09-08 | XR_ITS ---
XR chest 2V DATE: 09/08/2021 10:52 INDICATION: Shortness of breath TECHNIQUE: PA and lateral views COMPARISON: 08/31/2021 2 view chest FINDINGS: Heart size is within normal limits. Aortic arch calcification. Mild patchy infiltrate or atelectasis completely lower lung zones, greater on the left. Small left pleural effusion is suggested. Possible small pulmonary nodule overlying left upper lung consider CT thorax. No pulmonary vascular congestion or pneumothorax. IMPRESSION: Mild infiltrate or atelectasis in the lower lung zones, left greater than right and small left pleural effusion Suspected small left upper lobe pulmonary nodule Reviewed, dictated and finalized at location B. IMPRESSION: Mild infiltrate or atelectasis in the lower lung zones, left greate r than right and small left pleural effusion Suspected small left upper lobe pulmonary nodule
== END ==
PROVIDERS: PCP Family Medicine Adolescent Medicine; Visit Provider Physician Assistant
DX: R06.02 Shortness of breath (principal); R91.8 Other nonspecific abnormal finding of lung field; J90 Pleural effusion, not elsewhere classified
CPT/HCPCS: 71046

== ENCOUNTER 2022-08-06 00:48 | Day surgery (SDC) | payer BC, SELFPAY ==
[2022-07-22 15:58] VITALS: BMI 32.1
[2022-08-06 09:06] VITALS: BP 156/60; PULSE 75; RESP 18; TEMP 35.8; O2SAT 99
--- NOTE | 2022-08-06 09:10 | SUR.PREOP ---
blood glucose 110 per Dexcom, pt wears insulin pump
[2022-08-06] MEDS: LACTATED RINGERS 1,000 ML 150 ML IV CONT (09:21)
--- NOTE | 2022-08-06 09:50 | PM.HPGS ---
History of Present Illness History of Present Illness Consent: Risks, benefits, and alternatives have been discussed and questions answered. Patient agrees to proceed with procedure. Chief complaint: neoplasm screening Narrative: Rosanne May is a 57 year old female Presents for screening colonoscopy. Patient's current weight appetite and bowel movements are normal. Patient denies abdominal pain. She has never previously had a colonoscopy. Previous Cologuard test reported to be negative. She does have chronic kidney disease. She is reported to be at stage III , some of the reports reports stage IV. She reports concern over low iron. Recent CBC in our chart appears fairly unremarkable however. No immediate iron studies available for review. Patient denies any bleeding. She has had no bruising. Family history is noncontributory. Review of Systems Review of Systems: Review of systems noncontributory. [facility] Past Medical History Medical History Essential hypertension History of [place] (myocardial infarction) History of rheumatoid arthritis Pure hypercholesterolemia, unspecified Type 2 diabetes mellitus with hyperglycemia, with long-term current use of insulin Surgical History Surgical History Hx of cardiac cath Hx of section Family History Family History Father Hypertension Family history of coronary artery disease Family history of heart disease in male family member before age 55 Grandparent Cerebrovascular accident Diabetes mellitus Mother Family history of arthritis Family history of heart disease in male family member before age 55 Social History Social History Smoking status: Never smoker Second hand tobacco smoke exposure: No Alcohol intake: current Substance use: never Substance use type: does not use Living arrangements: with family Additional living arrangements comments: lives with Occupation/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 Gender identity (if verbalized by the patient): Female Sexual Orientation (if Verbalized by the Patient): Straight or Heterosexual 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: No Agree to blood products: Yes Meds Home Medications and Allergies Home Medications Medication Instructions Recorded Confirmed Type aspirin 81 mg tablet,delayed 81 mg PO DAILY 08/01/19 08/06/22 History release (Adult Aspirin Regimen) clopidogrel 75 mg tablet 75 mg PO DAILY 08/01/19 08/06/22 History lorazepam 0.5 mg tablet 0.5 mg PO DAILY PRN Anxiety 08/01/19 08/06/22 History subcutaneous insulin pump (MiniMed #1 ea 08/03/19 06/14/22 History 630G Insulin Pump) insulin aspart U-100 100 unit/mL See Rx Instructions subcut 02/06/20 08/06/22 Rx subcutaneous solution (Novolog USEASDIRECTD 90 days #90 mL U-100 Insulin aspart) blood sugar diagnostic (Contour #150 ea 04/03/21 06/14/22 Rx Next Test Strips) losartan 50 mg tablet 50 mg PO DAILY 10/28/21 08/06/22 History sodium,potassium,mag sulfates 17.5 See Rx Instructions PO .COMPLEX 07/19/22 Rx gram-3.13 gram-1.6 gram oral soln #354 mL (Suprep Bowel Prep Kit) carvedilol 12.5 mg tablet 6.25 mg PO BID 07/22/22 08/06/22 History cholecalciferol (vitamin D3) 25 25 mcg PO DAILY 07/22/22 08/06/22 History mcg (1,000 unit) tablet (Vitamin D3) ferrous sulfate 325 mg (65 mg 325 mg PO DAILY 07/22/22 08/06/22 History iron) tablet (FeroSul) rosuvastatin 20 mg tablet 20 mg PO DAILY 07/22/22 07/22/22 History semaglutide 0.25 mg or 0.5 mg (2 0.25 mg subcut WEEKLY 07/22/22 07/22/22 History mg/1.5 mL) subcutaneous pen injector (Ozempic) Allergies Allergy/AdvReac Type Severity Reaction Status Date / Time levofloxa
--- NOTE | 2022-08-06 10:07 | WPDANESEPPF ---
Anes - Initial Pre Proc Eval Procedure: Operation Date: 08/06/22 10:00 Proposed Procedures p Screening Colonoscopy - Phil Edwards MD Date/Time: 08/06/22 10:07 Surgeon: Phil Edwards MD Pre Op Diagnosis: neoplasm screening Patient Data Age: 57 Gender: F Height: 1.65 m Weight: 86.9 kg Last Vital Signs Temp 96.5 F L 08/06/22 09:06 Pulse 75 08/06/22 09:06 Resp 18 08/06/22 09:06 BP 156/60 H 08/06/22 09:06 Pulse Ox 99 08/06/22 09:06 O2 Del Method Room Air 08/06/22 09:06 Allergies Allergy/AdvReac Type Severity Reaction Status Date / Time levofloxacin [From Levaquin] Allergy Severe Swelling Verified 08/06/22 09:05 of Lip/Tongue/Throat itraconazole Allergy Mild Itching Verified 08/06/22 09:05 Lamisil Allergy Intermediate Other Uncoded 08/06/22 09:05 Home Medications Medication Instructions Recorded Confirmed Type aspirin 81 mg tablet,delayed 81 mg PO DAILY 08/01/19 08/06/22 History release (Adult Aspirin Regimen) clopidogrel 75 mg tablet 75 mg PO DAILY 08/01/19 08/06/22 History lorazepam 0.5 mg tablet 0.5 mg PO DAILY PRN Anxiety 08/01/19 08/06/22 History subcutaneous insulin pump (MiniMed #1 ea 08/03/19 06/14/22 History 630G Insulin Pump) insulin aspart U-100 100 unit/mL See Rx Instructions subcut 02/06/20 08/06/22 Rx subcutaneous solution (Novolog USEASDIRECTD 90 days #90 mL U-100 Insulin aspart) blood sugar diagnostic (Contour #150 ea 04/03/21 06/14/22 Rx Next Test Strips) losartan 50 mg tablet 50 mg PO DAILY 10/28/21 08/06/22 History sodium,potassium,mag sulfates 17.5 See Rx Instructions PO .COMPLEX 07/19/22 Rx gram-3.13 gram-1.6 gram oral soln #354 mL (Suprep Bowel Prep Kit) carvedilol 12.5 mg tablet 6.25 mg PO BID 07/22/22 08/06/22 History cholecalciferol (vitamin D3) 25 25 mcg PO DAILY 07/22/22 08/06/22 History mcg (1,000 unit) tablet (Vitamin D3) ferrous sulfate 325 mg (65 mg 325 mg PO DAILY 07/22/22 08/06/22 History iron) tablet (FeroSul) rosuvastatin 20 mg tablet 20 mg PO DAILY 07/22/22 07/22/22 History semaglutide 0.25 mg or 0.5 mg (2 0.25 mg subcut WEEKLY 07/22/22 07/22/22 History mg/1.5 mL) subcutaneous pen injector (Ozempic) Patient hx anesthesia problems: none Family hx anesthesia problems: none Results Review: All pre-operative results and documents have been reviewed as part of the pre-operative evaluation. [facility] Past Medical History Medical History Essential hypertension History of [place] (myocardial infarction) History of rheumatoid arthritis Pure hypercholesterolemia, unspecified Type 2 diabetes mellitus with hyperglycemia, with long-term current use of insulin Surgical History Surgical History Hx of cardiac cath Hx of section Family History Family History Father Hypertension Family history of coronary artery disease Family history of heart disease in male family member before age 55 Grandparent Cerebrovascular accident Diabetes mellitus Mother Family history of arthritis Family history of heart disease in male family member before age 55 Social History Social History Smoking status: Never smoker Second hand tobacco smoke exposure: No Alcohol intake: current Substance use: never Substance use type: does not use Living arrangements: with family Additional living arrangements comments: lives with 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
[2022-08-06 10:54] VITALS: BP 96/53; PULSE 67; RESP 20; O2SAT 98
[2022-08-06 11:04] VITALS: BP 121/62; PULSE 70; RESP 20; O2SAT 99
[2022-08-06 11:14] VITALS: BP 156/78; PULSE 66; RESP 19; O2SAT 99
== END 2022-08-06 11:24 | disposition home or self-care (01) ==
PROVIDERS: PCP Family Medicine Adolescent Medicine; Visit Provider Internal Medicine Gastroenterology
PROC: 0DJD8ZZ Inspection of Lower Intestinal Tract, Via Natural or Artificial Opening Endoscopic (ICD-10-PCS; CPT 45378; principal; 2022-08-06 10:00)
DX: Z12.11 Encounter for screening for malignant neoplasm of colon (principal); D12.5 Benign neoplasm of sigmoid colon; K64.8 Other hemorrhoids; K57.30 Diverticulosis of large intestine without perforation or abscess without bleeding; N18.9 Chronic kidney disease, unspecified; I12.9 Hypertensive chronic kidney disease with stage 1 through stage 4 chronic kidney disease, or unspecified chronic kidney disease; E11.22 Type 2 diabetes mellitus with diabetic chronic kidney disease; E78.00 Pure hypercholesterolemia, unspecified; I25.2 Old myocardial infarction
CPT/HCPCS: 45385; 88305; J2001; J2704; J7120

== ENCOUNTER 2023-01-29 14:18 | Emergency (ER) | payer BC, SELFPAY ==
--- NOTE | 2023-01-29 14:32 | ED.FEMALEGU ---
HPI - Female Genitourinary General Chief complaint: Urogenital-Female Stated complaint: uti symptoms Time Seen by Provider: 01/29/23 14:39 Source: patient, RN notes reviewed and old records reviewed Mode of arrival: ambulatory Limitations: no limitations History of Present Illness HPI Narrative: 57-year-old female presents to the [facility] with concerns she might have a UTI. States that she is not going as frequently. Occasional burning with urination. States that she had labs done 3 days ago and her white count was elevated. Also states her glucose has been running higher than normal, states has been in the 130s, normally runs between 100 and 105. Denies any CVA tenderness. No nausea vomiting or diarrhea. Denies fevers. Denies abdominal pain or chest pain. Patient on chronic prednisone, discussed this can cause symptoms. Related Data Home Medications Medication Instructions Recorded Confirmed aspirin 81 mg tablet,delayed 81 mg PO DAILY 08/01/19 01/29/23 release (Adult Aspirin Regimen) clopidogrel 75 mg tablet 75 mg PO DAILY 08/01/19 01/29/23 subcutaneous insulin pump (Mini[employer] #1 ea 08/03/19 01/29/23 630G Insulin Pump) cholecalciferol (vitamin D3) 25 25 mcg PO DAILY 07/22/22 01/29/23 mcg (1,000 unit) tablet (Vitamin D3) ferrous sulfate 325 mg (65 mg 325 mg PO DAILY 07/22/22 01/29/23 iron) tablet (FeroSul) empagliflozin 10 mg tablet 10 mg PO DAILY 10/13/22 01/29/23 (Jardiance) metoprolol succinate 50 mg 50 mg PO DAILY 10/13/22 01/29/23 tablet,extended release 24 hr estradiol 0.01% (0.1 mg/gram) 1 appful vaginal .PRN 01/24/23 01/29/23 vaginal cream furosemide 80 mg tablet 80 mg PO BID 01/24/23 01/29/23 hydroxychloroquine 100 mg tablet 100 mg PO DAILY 01/24/23 01/29/23 blood-glucose transmitter (Dexcom 01/29/23 01/29/23 G6 Transmitter device) Allergies Allergy/AdvReac Type Severity Reaction Status Date / Time levofloxacin [From Levaquin] Allergy Severe Swelling Verified 01/29/23 14:31 of Lip/Tongue/Throat itraconazole AdvReac Mild Itching Verified 01/29/23 14:31 Lamisil AdvReac Mild Other Uncoded 01/29/23 14:31 Review of Systems Review of Systems: All systems reviewed & are unremarkable except as noted in HPI and below Constitutional: Constitutional: Reports no additional constitutional complaints Eyes: Eyes: Reports no additional eye complaints ENT: Reports system reviewed and no additional complaints, except as documented Cardiovascular: Cardiovascular: Reports no additional cardiovascular complaints, Denies chest pain and Denies dyspnea Respiratory: Respiratory: Reports no additional respiratory complaints, Denies chest congestion, Denies cough and Denies dyspnea Gastrointestinal: Gastrointestinal: Reports no additional gastrointestinal complaints, Denies abdominal pain, Denies nausea and Denies vomiting Genitourinary: Genitourinary: Reports as per HPI Musculoskeletal: Musculoskeletal: Reports no additional musculoskeletal complaints Integumentary/Breasts: Skin/Breast: Reports system reviewed and no additional complaints, except as docu Neurologic: Reports system reviewed and no additional complaints, except as documented Psychiatric: Psychiatric: Reports no additional psychiatric complaints Allergic/Immunologic: Allergic/Immunologic: Reports no additional allergic/immunologic complaints PMFSH Past Medical History Medical History Essential hypertension History of [place] (myocardial infarction) History of rheumatoid arthritis Pure hypercholesterolemia, unspecified Type 2 diabetes mellitus with hyperglycemia, with long-term current use of insulin Surgical History Surgical History History of hip surgery (2019) ORIF right hip for IT fx Hx of cardiac cath Hx of section Family History Family History (Reviewed 01/29/23 @ 19:21 by Delia Rehman, AP
[2023-01-29 14:35] VITALS: BP 124/67; PULSE 73; RESP 16; TEMP 36.2; O2SAT 99
== END 2023-01-29 14:54 | disposition home or self-care (01) ==
PROVIDERS: Emergency Provider Nurse Practitioner; PCP Family Medicine Adolescent Medicine
DX: N39.0 Urinary tract infection, site not specified (principal); B96.20 Unspecified Escherichia coli [E. coli] as the cause of diseases classified elsewhere; I10 Essential (primary) hypertension; I25.2 Old myocardial infarction; M06.9 Rheumatoid arthritis, unspecified; E78.00 Pure hypercholesterolemia, unspecified; E11.9 Type 2 diabetes mellitus without complications; Z79.4 Long term (current) use of insulin; Z79.82 Long term (current) use of aspirin
CPT/HCPCS: 81003; 87077; 87086; 87186; 99213; G0463

== ENCOUNTER 2024-04-03 09:30 | Outpatient (RCR) | payer BC, SELFPAY ==
[2023-12-09 08:48] VITALS: BP 144/70; PULSE 88; RESP 16; O2SAT 95
[2023-12-09 09:06] VITALS: PULSE 88
== END 2024-04-03 23:59 | disposition home or self-care (01) ==
LOC: ANHCPREHAB 09:30
PROVIDERS: PCP Family Medicine Adolescent Medicine
DX: J84.9 Interstitial pulmonary disease, unspecified (principal)
CPT/HCPCS: 94625; G0239

== ENCOUNTER 2024-05-19 13:23 | Outpatient (CLI) | payer BC, SELFPAY ==
--- OUTSIDE RECORDS SUMMARY | 2024-05-19 13:26 | XMS_ITS | Encounter Summary ---
Author Organization [facility] Facility Care Team Providers Care Director Workforce Management Name Role Phone Cheikh Ackerman MD Primary Care Prov ider Cheikh Ackerman MD Primary Care Prov ider Cheikh Ackerman MD Primary Care Prov ider Peep Nicole MD Unavailable [phone] Francisco Javier Uriostegui MD Unavailable Encounter Details Date Type Department Care Team (Latest Contact Info) Description 02/11/2016 Orders Only [facility] ProviderYohan MD [address] [place] [address] Social History Tobacco Use Types Packs/Day Years Used Date Smoking Tobacco: Never Assessed Comments Unknown Sex and Gender Information Value Date Recorded Sex Assigned at Not on file Legal Sex Female 11:58 PM CAR REPAIRER PULLMAN Gender Identity Female 04/03/2018 2:53 PM CAR REPAIRER PULLMAN Sexual Orientation Not on file documented as of this encounter Plan of Treatment Not on file documented as of this encounter Procedures Procedure Name Priority Date/Time Associated Diagnosis Comments PROCEDURE - RESULT 02/11/2016 12 :00 AM CAR REPAIRER PULLMAN documented in this encounter Results * PROCEDURE - RESULT (02/11/2016 12:00 AM CAR REPAIRER PULLMAN) Narrative 02/11/2016 12:00 AM CAR REPAIRER PULLMAN Ordered by an unspecified provider. us Historical Provider Final Res ult documented in this encounter Visit Diagnoses Not on filedocumented in this encounter Care Teams Director Workforce Management Relationship Specialty Start Date End Date Cheikh Ackerman MD [address] [place] [address] PCP - General 06/11/16 Cheikh Ackerman MD [address] [place] [address] PCP - General 05/04/16 06/10/16 Cheikh Ackerman MD [address] [place] [address] PCP - General 04/25/06 05/03/16 Pepe Nicole MD [address] [place] [address] Referring Physician Nephrology 04/24/20 Francisco Javier Uriostegui MD [address] [place] [address] Consulting Physician Cardiology 11/22/22 documented as of this encounter
--- OUTSIDE RECORDS SUMMARY | 2024-05-19 13:26 | XMS_ITS | Encounter Summary ---
Author Organization [facility] Facility Care Team Providers Care Event Marketing Intern Name Role Phone Cheikh Ackerman MD Primary Care Prov ider Cheikh Ackerman MD Primary Care Prov ider Cheikh Ackerman MD Primary Care Prov ider Pepe Nicole MD Unavailable [phone] Francisco Javier Uriostegui MD Unavailable Encounter Details Date Type Department Care Team (Latest Contact Info) Description 03/12/2016 Orders Only [facility]INCON[facility] ProviderYohan MD [address] [place], [place] [id number] Social History Tobacco Use Types Packs/Day Years Used Date Smoking Tobacco: Never Assessed Comments Unknown Sex and Gender Information Value Date Recorded Sex Assigned at Not on file Legal Sex Female 11:58 PM MACHINE LEAD BURNER Gender Identity Female 04/03/2018 2:53 PM MACHINE LEAD BURNER Sexual Orientation Not on file documented as of this encounter Plan of Treatment Not on file documented as of this encounter Procedures Procedure Name Priority Date/Time Associated Diagnosis Comments SCAN - LABS 04/06/2016 12:00 AM MACHINE LEAD BURNER SCAN - PATHOLOGY 03/12/2016 12:0 0 AM MACHINE LEAD BURNER documented in this encounter Results * SCAN - LABS (04/06/2016 12:00 AM MACHINE LEAD BURNER) Narrative 04/06/2016 12:00 AM MACHINE LEAD BURNER Ordered by an unspecified provider. Historical Provider Final Res ult * SCAN - PATHOLOGY (03/12/2016 12:00 AM MACHINE LEAD BURNER) Narrative 03/12/2016 12:00 AM MACHINE LEAD BURNER Ordered by an unspecified provider. Historical Provider Final Res ult documented in this encounter Visit Diagnoses Not on filedocumented in this encounter Care Teams Event Marketing Intern Relationship Specialty Start Date End Date Cheikh Ackerman MD [address] [place] [address] PCP - General 06/11/16 Cheikh Ackerman MD [address] [place] [address] PCP - General 05/04/16 06/10/16 Cheikh Ackerman MD [address] [place] [address] PCP - General 04/25/06 05/03/16 Pepe Nicole MD [address] [place] [address] Referring Physician Nephrology 04/24/20 Francisco Javier Uriostegui MD [address] [place] [address] Consulting Physician Cardiology 11/22/22 documented as of this encounter
--- OUTSIDE RECORDS SUMMARY | 2024-05-19 13:26 | XMS_ITS | Referral Summary ---
Author Organization [facility] Address [address] [place] [address] Care Team Providers Care System Architect Name Role Phone Vanessa Cardoso MD Primary Care Provider [phone] Source Comments [facility],non-owned Affiliates and Associated Physician Practices is amultiple site organization consisting of ambulatory clinics and hospital sitesin [place], [place], [place] and [place]. This disclosure is being madepursuant to the Care Everywhere program and may not contain all information available regarding this patient. Last updated 17.[facility] [employer] Social History Tobacco Use Types Packs/Day Years Used Date Smoking Tobacco: Never Assessed Sex and Gender Information Value Date Recorded Sex Assigned at Not on file Gender Identity Not on file Sexual Orientation Not on file Plan of Treatment Not on file Care Teams System Architect Relationship Specialty Start Date End Date Vanessa Cardoso MD [address] [place] [address] PCP - General 01/09/21
--- OUTSIDE RECORDS SUMMARY | 2024-05-19 13:26 | XMS_ITS | Encounter Summary ---
Author Organization [facility] Address [address] [place] [address] Phone Care Team Providers Care Bakery Machine Mechanic Supervisor Name Role Phone Cheikh Ackerman MD Primary Care Prov ider Pepe Nicole MD Unavailable [phone] Francisco Javier Uriostegui MD Unavailable Encounter Details Date Type Department Care Team (Latest Contact Info) Description 04/16/2020 Orders Only [facility] Scanning, Provider Social History Tobacco Use Types Packs/Day Years Used Date Smoking Tobacco: Never Smokeless Tobacco: Never Alcohol Use Standard Drinks/Week Comments Yes 1 (1 standard drink = 0.6 oz pur e alcohol) seldom Comments Unknown Sex and Gender Information Value Date Recorded Sex Assigned at Not on file Legal Sex Female 11:58 PM SENIOR TALENT MANAGEMENT CONSULTANT Gender Identity Female 04/03/2018 2:53 PM SENIOR TALENT MANAGEMENT CONSULTANT Sexual Orientation Not on file documented as of this encounter Plan of Treatment Not on file documented as of this encounter Procedures Procedure Name Priority Date/Time Associated Diagnosis Comments SCAN - LABS 04/16/2020 documented in this encounter Results * SCAN - LABS (04/16/2020) us Provider Scanning Edited Result - Final documented in this encounter Visit Diagnoses Not on filedocumented in this encounter Care Teams Bakery Machine Mechanic Supervisor Relationship Specialty Start Date End Date Cheikh Ackerman MD [address] [place] [address] PCP - General 06/11/16 Pepe Nicole MD [address] [place] [address] Referring Physician Nephrology 04/24/20 Francisco Javier Uriostegui MD [address] [place] [address] Consulting Physician Cardiology 11/22/22 documented as of this encounter
--- OUTSIDE RECORDS SUMMARY | 2024-05-19 13:26 | XMS_ITS | Encounter Summary ---
Author Organization [facility] Facility Care Team Providers Care Sas Clinical Programmer Name Role Phone Cheikh Ackerman MD Primary Care Prov ider Cheikh Ackerman MD Primary Care Prov ider Cheikh Ackerman MD Primary Care Prov ider Pepe Nicole MD Unavailable [phone] Francisco Javier Uriostegui MD Unavailable Encounter Details Date Type Department Care Team (Latest Contact Info) Description 02/18/2016 Orders Only [facility] ProviderYohan MD [address] [place] [address] Social History Tobacco Use Types Packs/Day Years Used Date Smoking Tobacco: Never Assessed Comments Unknown Sex and Gender Information Value Date Recorded Sex Assigned at Not on file Legal Sex Female 11:58 PM URINALYSIS TECHNICIAN Gender Identity Female 04/03/2018 2:53 PM URINALYSIS TECHNICIAN Sexual Orientation Not on file documented as of this encounter Plan of Treatment Not on file documented as of this encounter Procedures Procedure Name Priority Date/Time Associated Diagnosis Comments SCAN - PATHOLOGY 02/20/2016 12:0 0 AM URINALYSIS TECHNICIAN SCAN - LABS 02/20/2016 12:00 AM URINALYSIS TECHNICIAN SCAN - LABS 02/20/2016 12:00 AM URINALYSIS TECHNICIAN SCAN - LABS 02/20/2016 12:00 AM URINALYSIS TECHNICIAN SCAN - LABS 02/20/2016 12:00 AM URINALYSIS TECHNICIAN documented in this encounter Results * SCAN - LABS (02/20/2016 12:00 AM URINALYSIS TECHNICIAN) Narrative 02/20/2016 12:00 AM URINALYSIS TECHNICIAN Ordered by an unspecified provider. Historical Provider Final Res ult * SCAN - PATHOLOGY (02/20/2016 12:00 AM URINALYSIS TECHNICIAN) Narrative 02/20/2016 12:00 AM URINALYSIS TECHNICIAN Ordered by an unspecified provider. [facility] Provider Final Res ult * SCAN - LABS (02/20/2016 12:00 AM URINALYSIS TECHNICIAN) Narrative 02/20/2016 12:00 AM URINALYSIS TECHNICIAN Ordered by an unspecified provider. [facility] Provider Final Res ult * SCAN - LABS (02/20/2016 12:00 AM URINALYSIS TECHNICIAN) Narrative 02/20/2016 12:00 AM URINALYSIS TECHNICIAN Ordered by an unspecified provider. [facility] Provider Final Res ult * SCAN - LABS (02/20/2016 12:00 AM URINALYSIS TECHNICIAN) Narrative 02/20/2016 12:00 AM URINALYSIS TECHNICIAN Ordered by an unspecified provider. [facility] Provider Final Res ult documented in this encounter Visit Diagnoses Not on filedocumented in this encounter Care Teams Sas Clinical Programmer Relationship Specialty Start Date End Date Cheikh Ackerman MD [address] [place] [address] PCP - General 06/11/16 Cheikh Ackerman MD [address] [place] [address] PCP - General 05/04/16 06/10/16 Cheikh Ackerman MD [address] [place] [address] PCP - General 04/25/06 05/03/16 Pepe Nicole MD [address] [place] [address] Referring Physician Nephrology 04/24/20 Francisco Javier Uriostegui MD [address] [facility] [address] [place] [address] Consulting Physician Cardiology 11/22/22 documented as of this encounter
--- OUTSIDE RECORDS SUMMARY | 2024-05-19 13:26 | XMS_ITS | Encounter Summary ---
Author Organization [facility] Address [address] [place] [address] Care Team Providers Care Correctional Medicine Physician Name Role Phone Linda Euceda Primary Care Provider [phone] Encounter Details Date Type Department Care Team (Late st Contact Info) Description 05/20/2021 [employer] Message Enc [facility] Family & Internal Medicine [facility] [address] [place] [phone] [place] [address] [place] [address] 05/26/21 Appointment Social History Tobacco Use Types Packs/Day Years Used Date Smoking Tobacco: Never Smokeless Tobacco: Never Alcohol Use Standard Drinks/Week Comments Yes 0 (1 standard drink = 0.6 oz pur e alcohol) social PHQ-2 Answer Date Recorded PHQ-2 Score - If the patient scores above 3, please move on to questions 3-9 2 04/21/2021 Comments No Sex and Gender Information Value Date Recorded Sex Assigned at Not on file Legal Sex Female 5:38 PM SILK SPOOLER Gender Identity Not on file Sexual Orientation Not on file COVID-19 Exposure Response Date Recorded In the last 10 days, have yo u been in contact with someone who was confirmed or suspected to have Coronavirus/COVID-19? No / Unsure 04/21/2021 3:52 PM SILK SPOOLER documented as of this encounter Plan of Treatment Not on file documented as of this encounter Visit Diagnoses Not on filedocumented in this encounter Additional Health Concerns Assessment Noted Time PHQ-9 Depression Total Score: 8 04/21/19 22 4:17 PM SILK SPOOLER documented as of this encounter Care Teams Correctional Medicine Physician Relationship Specialty [place] [address] [place] [address] PCP - General PHYSICIAN PETS AND PET SUPPLIES SALESPERSON 04/08/21 documented as of this encounter
--- OUTSIDE RECORDS SUMMARY | 2024-05-19 13:26 | XMS_ITS | Continuity of Care Document ---
Author Organization [facility] Address [address] [place] [address] utive [facility] [address] [place] [address] Phone Care Team Providers Care Continuous Improvement Coordinator Name Role Phone Brooke Amador Unavailable Unavailable Procedures Procedure Date Eye Exam, New Patient Advance Directives Directive Yes / No Effective Date File Name No Information Encounters Encounter Description Practice Location Reason(s) For Visit Diagnoses Date Provider Providers Copied on Encounter [facility], [address] [place] [address] [address], [place], [place], [id number], [place] tel:[phone] [facility] No Information 8-200 8 Marjorie Cox. [address] , [address], [place], [address], [place]. tel:[phone] Family History Family Member Type Diagnosis Age At Onset No Information Payers Payer name Insurance type Covered libertarian ID Authoriza tion(s) No Information Social History [...]
--- OUTSIDE RECORDS SUMMARY | 2024-05-19 13:26 | XMS_ITS | Encounter Summary ---
Author Organization [facility] Facility Care Team Providers Care Knitted Goods Shaper Name Role Phone Cheikh Ackerman MD Primary Care Prov ider Cheikh Ackerman MD Primary Care Prov ider Cheikh Ackerman MD Primary Care Prov ider Pepe Nicole MD Unavailable [phone] Francisco Javier Uriostegui MD Unavailable Encounter Details Date Type Department Care Team (Latest Contact Info) Description 02/26/2016 Orders Only [facility]IN[facility] ProviderYohan MD [address] [place] [address] Social History Tobacco Use Types Packs/Day Years Used Date Smoking Tobacco: Never Assessed Comments Unknown Sex and Gender Information Value Date Recorded Sex Assigned at Not on file Legal Sex Female 11:58 PM ANALYTICAL CONSULTANT Gender Identity Female 04/03/2018 2:53 PM ANALYTICAL CONSULTANT Sexual Orientation Not on file documented as of this encounter Plan of Treatment Not on file documented as of this encounter Procedures Procedure Name Priority Date/Time Associated Diagnosis Comments PROCEDURE - RESULT 02/26/2016 12 :00 AM ANALYTICAL CONSULTANT documented in this encounter Results * PROCEDURE - RESULT (02/26/2016 12:00 AM ANALYTICAL CONSULTANT) Narrative 02/26/2016 12:00 AM ANALYTICAL CONSULTANT Ordered by an unspecified provider. us Historical Provider Final Res ult documented in this encounter Visit Diagnoses Not on filedocumented in this encounter Care Teams Knitted Goods Shaper Relationship Specialty Start Date End Date Cheikh Ackerman MD [address] [place] [address] PCP - General 06/11/16 Cheikh Ackerman MD [address] [place] [address] PCP - General 05/04/16 06/10/16 Cheikh Ackerman MD [address] [place] [address] PCP - General 04/25/06 05/03/16 Pepe Nicole MD [address] [place] [address] Referring Physician Nephrology 04/24/20 Francisco Javier Uriostegui MD [address] [facility] [address] [place] [address] Consulting Physician Cardiology 11/22/22 documented as of this encounter
--- OUTSIDE RECORDS SUMMARY | 2024-05-19 13:26 | XMS_ITS | Encounter Summary ---
Author Organization [facility] Address [address] [place] [address] Phone Care Team Providers Care Aluminum Pool Installer Name Role Phone Cheikh Ackerman MD Primary Care Prov ider Pepe Nicole MD Unavailable [phone] Francisco Javier Uriostegui MD Unavailable Encounter Details Date Type Department Care Team (Latest Contact Info) Description 01/13/2021 Orders Only [facility] Scanning, Provider Social History Tobacco Use Types Packs/Day Years Used Date Smoking Tobacco: Never Smokeless Tobacco: Never Alcohol Use Standard Drinks/Week Comments Yes 1 (1 standard drink = 0.6 oz pur e alcohol) seldom Comments Unknown Sex and Gender Information Value Date Recorded Sex Assigned at Not on file Legal Sex Female 11:58 PM FRONT END SPECIALIST Gender Identity Female 04/03/2018 2:53 PM FRONT END SPECIALIST Sexual Orientation Not on file documented as of this encounter Plan of Treatment Not on file documented as of this encounter Procedures Procedure Name Priority Date/Time Associated Diagnosis Comments SCAN - LABS 01/13/2021 documented in this encounter Results * SCAN - LABS (01/13/2021) us Provider Scanning Final Result documented in this encounter Visit Diagnoses Not on filedocumented in this encounter Care Teams Aluminum Pool Installer Relationship Specialty Start Date End Date Cheikh Ackerman MD [address] [place] [address] PCP - General 06/11/16 Pepe Nicole MD [address] [place] [address] Referring Physician Nephrology 04/24/20 Francisco Javier Uriostegui MD [address] [place] [address] Consulting Physician Cardiology 11/22/22 documented as of this encounter
--- OUTSIDE RECORDS SUMMARY | 2024-05-19 13:26 | XMS_ITS | Patient Health Summary ---
Author Organization [facility] Address [address] [place] [address] Care Team Providers Care Stable Helper Name Role Phone Vanessa Cardoso MD Primary Care Provider [phone] Note from [facility],non-owned Affiliates and Associated Physician Practices is amultiple site organization consisting of ambulatory clinics and hospital sitesin [place], [place], [place] and [place]. This disclosure is being madepursuant to the Care Everywhere program and may not contain all information available regarding this patient. Last updated 17.[facility] Social History Tobacco Use Types Packs/Day Years Used Date Smoking Tobacco: Never Assessed Sex and Gender Information Value Date Recorded Sex Assigned at Not on file Gender Identity Not on file Sexual Orientation Not on file Care Teams Stable Helper Relationship Specialty Start Date End Date Vanessa Cardoso MD [address] [place] [address] PCP - General 01/09/21
--- OUTSIDE RECORDS SUMMARY | 2024-05-19 13:26 | XMS_ITS | Clinical Summary ---
Author Organization [facility] Address [address] [place] [address] Care Team Providers Care Oil Well Logger Name Role Phone Vanessa Cardoos MD Primary Care Provider [phone] Source Comments [facility],non-owned Affiliates and Associated Physician Practices is amultiple site organization consisting of ambulatory clinics and hospital sitesin [place], [place], [place] and [place]. This disclosure is being madepursuant to the Care Everywhere program and may not contain all information available regarding this patient. Last updated 17.[facility] [employer] Social History Tobacco Use Types Packs/Day Years Used Date Smoking Tobacco: Never Assessed Sex and Gender Information Value Date Recorded Sex Assigned at Not on file Gender Identity Not on file Sexual Orientation Not on file Plan of Treatment Health Maintenance Due Date Last Done Comments COLOGUARD (AGES 45-75) - COL ON CA SCREENING 1964 COLON MONITORING 1964 COLONOSCOPY - COLON CA SCREENING 1964 CT COLONOGRAPHY - COLON CA SCREENING 1964 Colorectal Cancer Screening 1964 FIT - COLON CA SCREENING 1964 FLEX SIG - COLON CA SCREENING 1964 LIPID TESTING 1964 MAMMOGRAM 1964 PAP SMEAR 1964 HIV SCREENING 1979 HEPATITIS C SCREENING 05/07/1982 DTAP/TDAP/TD VACCINES (1 - Tdap) 1983 PNEUMOCOCCAL VACCINE 50+ (1 of 1 - PCV) 2014 ZOSTER VACCINE (1 of 2) 2014 COVID-19 VACCINE ( - 2023-2 5 season) 2023 INFLUENZA VACCINE (#1) 2023 DEPRESSION SCREENING 03/14/2024 Respiratory Syncytial Virus (RSV) Vaccine Pt: or over 60 yrs (1 - 1-dose 75+ series) 2039 HEPATITIS B VACCINE Aged Out No longe r eligible based on patient's age to complete this topic HIB VACCINE Aged Out No longer eligi ble based on patient's age to complete this topic HPV VACCINE Aged Out No longer eligi ble based on patient's age to complete this topic MENINGOCOCCAL (Group B) VACCINE Aged Out No longer eligible based on patient's age to complete this topic MENINGOCOCCAL VACCINE Aged Out No nydia derrell eligible based on patient's age to complete this topic PNEUMOCOCCAL VACCINE Aged Out No long er eligible based on patient's age to complete this topic Care Teams Oil Well Logger Relationship Specialty Start Date End Date Vanessa Cardoso MD [address] [place] [id number] PCP - General 01/09/21
--- OUTSIDE RECORDS SUMMARY | 2024-05-19 13:26 | XMS_ITS | Referral Summary ---
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 [facility] Vitamin B12 545 230 - 1,250 pg/mL Blood 03/12/2024 11:2 5 AM [facility] 03/12/2024 8:18 PM [facility] Crissy Mcadams NP LAB BLOOD ORDERABLES Fi nal Result ALICE WATT [phone] [address] [place] [address] * (ABNORMAL) Renal function panel (03/12/2024 11:25 AM [facility]) Sodium 144 135 - 145 mmol/L Potassium, pl 4.7 3.3 - 4.9 mmol/L [facility] Chloride 112(H) 97 - 110 mmol/L [facility] CO2 17(L) 22 - 32 mmol/L [facility] Anion gap 15 2 - 15 mmol/L [facility] BUN 25 6 - 25 mg/dL [facility] Creatinine 1.69(H) 0.60 - 1.10 mg/dL [facility] Glucose 108 70 - 199 mg/dL [facility] Comment: Interpretive Data Fasting glucose >/= 126 mg/dl is diagnostic for diabetes. Fasting is defined as no caloric intake for at least 8 hours. Fasting glucose between 100 mg/dl to 125 mg/dl is diagnostic of prediabetes. In a patient with classic symptoms of hyperglycemia or hyperglycemic crisis, a random glucose >/= 200 mg/dl is diagnostic for diabetes. In the absence of unequivocal hyperglycemia, results should be confirmed by repeat testing. The classification and Diagnosis of Diabetes Diabetes Care 202; 46: S19-S40. Current interpretive data was last revised 2022. Calcium 9.3 8.5 - 10.3 mg/dL [facility] Phosphorus, pl 2.9 2.3 - 4.5 mg/dL [facility] Albumin 3.9 3.5 - 5.0 g/dL [facility] Blood 03/12/2024 11:2 5 AM [facility] 03/12/2024 8:18 PM [facility] Brittnee Blackwell MD LAB BLOOD ORDERABLES Fi nal Result ALICE WATT [address] [address] Department [employer] [place], [place] [id number] * POCT hemoglobin A1c (10/25/2023 9:17 AM CDT) Hemoglobin A1C, POC 6.1 % Blood 10/25/2023 9:17 AM CDT Juani Vargas MD POINT OF CARE TEST ORDERABLES F inal Result * POCT lipid panel (08/10/2023 2:56 PM CDT) Cholesterol, POC 187 mg/dL HDL, POC 30 mg/dL Triglycerides, POC 172 mg/dL LDL Cholesterol POC 122 mg/dL Chol/HDL Ratio, POC 4.1 Non-HDL Cholesterol, POC 157 mg/dL Cholesterol Total, POC 187 mg/dL Capillary blood 08/10/2023 2 :56 PM CDT Francisco Javier Uriostegui MD POINT OF CARE TEST ORDERABLES Ed ited Result - Final from Last 3 Months or Most Recently Relevant to Health Maintenance Insurance [facility] ACCESS CHOICE ANTHEM ACCESS CHOICE Care Teams Pt Skilled Relationship Specialty Start Date End Date Cheikh Ackerman MD [address] [place] [address] PCP - General 06/11/16 Pepe Nicole MD [address] [place] [address] Referring Physician Nephrology 04/24/20 Francisco Javier Uriostegui MD [address] [place], [place] [id number] Consulting Physician Cardiology 11/22/22
--- OUTSIDE RECORDS SUMMARY | 2024-05-19 13:26 | XMS_ITS | Encounter Summary ---
Author Organization [facility] Address [facility] [place] [address] Care Team Providers Care Rubber Splicer Name Role Phone Linda Euceda Primary Care Provider [phone] Encounter Details Date Type Department Care Team (Late st Contact Info) Description 02/05/2022 [employer] Message Enc [facility] Family & Internal Medicine [facility] [id number] [place] [phone] [facility] Provider Pap smear Social History Tobacco Use Types Packs/Day Years [...] on file Legal Sex Female 5:38 PM INTAKE ASSESSOR Gender Identity Not on file Sexual Orientation Not on file documented as of this encounter Plan of Treatment Not on file documented as of this encounter Visit Diagnoses Not on filedocumented in this encounter Additional Health Concerns Assessment Noted Time PHQ-9 Depression Total Score: 8 04/21/19 22 4:17 PM INTAKE ASSESSOR documented as of this encounter Care Teams Rubber Splicer Relationship Specialty [place] [address] [place] [address] PCP - General PHYSICIAN INSECTICIDE EXPERT 04/08/21 documented as of this encounter
--- OUTSIDE RECORDS SUMMARY | 2024-05-19 13:26 | XMS_ITS | Encounter Summary ---
Author Organization [facility] Address [address] [place] [address] Phone Care Team Providers Care Women'S Garment Fitter Name Role Phone Cheikh Ackerman MD Primary Care Prov ider ePpe Nicole MD Unavailable [phone] Francisco Javier Uriostegui MD Unavailable Encounter Details Date Type Department Care Team (Latest Contact Info) Description 12/15/2016 Orders Only [facility] CONVERSION Scanning, Provider Social History Tobacco Use Types Packs/Day Years Used Date Smoking Tobacco: Never Smokeless Tobacco: Never Alcohol Use Standard Drinks/Week Comments Yes 1 (1 standard drink = 0.6 oz pur e alcohol) seldom Comments Unknown Sex and Gender Information Value Date Recorded Sex Assigned at Not on file Legal Sex Female 11:58 PM RENAL MEDICINE SPECIALIST Gender Identity Female 04/03/2018 2:53 PM RENAL MEDICINE SPECIALIST Sexual Orientation Not on file documented as of this encounter Plan of Treatment Not on file documented as of this encounter Procedures Procedure Name Priority Date/Time Associated Diagnosis Comments PULMONARY FUNCTION TEST (PFT) 12/15/2016 11:56 AM CDT documented in this encounter Results * PULMONARY FUNCTION TEST (PFT) (12/15/2016 11:56 AM CDT) Anatomical Region Laterality Modality PFT us Provider Scanning PFT ORDERABLES Final Result documented in this encounter Visit Diagnoses Not on filedocumented in this encounter Care Teams Women'S Garment Fitter Relationship Specialty Start Date End Date Cheikh Ackerman MD [address] [place] [address] PCP - General 06/11/16 Pepe Nicole MD [address] [place] [address] Referring Physician Nephrology 04/24/20 Francisco Javier Uriostegui MD [address] [facility] [address] [place] [address] Consulting Physician Cardiology 11/22/22 documented as of this encounter
--- OUTSIDE RECORDS SUMMARY | 2024-05-19 13:26 | XMS_ITS | Clinical Summary ---
Author Organization [facility] Address [address] [place] [address] Care Team Providers Care Ball Holder Name Role Phone Cheikh Ackerman MD Primary Care Prov ider Pepe Nicole MD Unavailable [phone] Francisco Javier Uriostegui MD Unavailable Allergies Active Allergy Reactions Criticality Noted Date [...] skin every 14 (fourteen) days 2 mL 11 08/11/19 24 Active losartan (COZAAR) 50 mg tablet Take 1 tablet (50 mg total) by mouth daily 30 tablet 11 09/20/19 24 025 Active insulin aspart (NovoLOG) 100 unit/mL vial for injectionIndic ations:Type 2 diabetes mellitus without complication, with long-term current use of insulin (HCC) USE WITH INSULIN PUMP, MAXIMUM DAILY DOSE IS 120 UNITS 110 mL 2 01/05/20 24 Active insulin lispro (HumaLOG) 100 unit/mL vial for injectionIndic ations:Type 2 diabetes mellitus without complication, with long-term current use of insulin (HCC) Use the insulin for insulin pump max [...] 90 tablet 05/10/19 25 Active blood-glucose sensor ([employer] G7 Sensor) device Will use 3 sensors per month to check blood sugar continuously. 3 each 04/27/19 025 Discontinued metoprolol XL (TOPROL-XL) 50 mg extended release tablet TAKE 1 TABLET(50 MG) BY MOUTH DAILY 90 tablet 3 05/19/19 24 025 Discontinued fluocinonide (LIDEX) 0.05 % external solution APPLY TOPICALLY TO THE AFFECTED AREA TWICE DAILY 09/11/19 24 025 Discontinued(Th erapy completed) predniSONE (DELTASONE) 1 mg tabletIndicati ons:PMR (polymyalgia rheumatica) Take 3 mg daily 90 tablet 3 02/06/20 24 025 Discontinued( erapy completed) furosemide (LASIX) 40 mg tablet TAKE 1 TABLET BY MOUTH DAILY NEEDED FOR LOWER EXTREMITY SWELLING 90 tablet 02/13/20 24 025 Discontinued sertraline (ZOLOFT) 50 mg tablet Take 1 tablet (50 mg total) by mouth daily 02/07/20 24 025 Discontinued( erapy completed) sodium bicarbonate 650 mg tablet Take 1 tablet (650 mg total) by mouth 2 (two) times a day 180 tablet 1 03/20/19 025 Discontinued( erapy completed) Hospital, Clinic, or [...] insulin 10/25/2023 ILD (interstitial lung disease) 10/05/2023 chief of party associated with adverse incidents 08/05/2023 BOOP (bronchiolitis [...] on prednisone - advised to contact her news photographer to discuss her blood pressure and edema [...] Mixed hyperlipidemia 07/28/2013 Overview (06/18/2016): PURE HYPERCHOLESTEROLEM Encounters Date Type Department Care Team Description 05/18/2024 1:40 PM LINE INSTALLER REPAIRER - 05/18/2024 11:59 PM LINE INSTALLER REPAIRER Hospital Encounter [address] [address] Bilateral knee swelling; Chronic pain of both knees Discharge Disposition: Discharge to home or self care 05/18/2024 1:00 PM LINE INSTALLER REPAIRER Office Visit [facility] Sports Medicine and Primary Care at [address] [place] [phone] Ash Godwin DO Bilateral knee swelling (Primary Dx); Chronic pain of both knees 05/14/2024 9:00 AM LINE INSTALLER REPAIRER Office Visit [facility] Sports Medicine and Primary Care at [address] [place] [phone] Ash Godwin DO Primary osteoarthritis of both knees (Primary Dx) 05/03/2024 Telephone [facility] Rheumatology [address] [place] [address] Office [address] [place] [address] Crissy Mcadams NP 05/01/2024 1:30 PM LINE INSTALLER REPAIRER Office Visit [facility] Rheumatology [address] [place] [address] Office [address] [place] [phone] Crissy Mcadams NP Polymyalgia rheumatica syndrome (Primary Dx); terminal computer operator (current) use of systemic steroids 04/20/2024 Telephone [facility] Nephrology [address] [facility] 5th [place] [address] [place] [address] Aspen Zapata 03/20/2024 1:00 PM LINE INSTALLER REPAIRER Office Visit [facility] Nephrology [address] [facility] 5th [place] [address] [place] [address] CKD (chronic kidney disease) stage 4, GFR 15-29 ml/min (HCC) (Primary Dx); Essential hypertension; Proteinuria, unspecified type; Anemia in stage 4 chronic kidney disease (HCC); Renal osteodystrophy 03/12/2024 3:31 PM LINE INSTALLER REPAIRER - 03/12/2024 11:59 PM LINE INSTALLER REPAIRER Hospital Encounter [address] [address] CKD (chronic kidney disease) stage 4, GFR 15-29 ml/min (HCC); Vitamin D deficiency; Proteinuria, unspecified type Discharge Disposition: Discharge to home or self care 03/12/2024 12:30 PM LINE INSTALLER REPAIRER Ancillary Procedure [facility] Imaging at [address] [phone] terminal computer operator (current) use of systemic steroids 03/12/2024 12:15 PM LINE INSTALLER REPAIRER Ancillary Procedure [facility] Imaging at [address] [phone] terminal computer operator (current) use of systemic steroids 03/12/2024 11:24 AM LINE INSTALLER REPAIRER - 03/12/2024 11:59 PM LINE INSTALLER REPAIRER Hospital Encounter [address] [address] terminal computer operator (current) use of systemic steroids Discharge Disposition: Discharge to home or self care 03/12/2024 11:15 AM LINE INSTALLER REPAIRER Lab [facility] Outpatient Lab at [address] [address] Mixed hyperlipidemia (Primary Dx); Type 2 diabetes mellitus with kidney complication, with long-term current use of insulin (HCC) from Last 3 Months Medical History Medical History Date Comments Myocardial infarction (HCC) Myoc ardial infarction Diabetes mellitus (HCC) Diabetes mellitus Hyperlipidemia Hyperlipidemia Arthritis Arthritis Hypertension Hypertension Family History Medical History Relation Name Comments Other Father Alive and well; Lung cancer Maternal Grandfather Family history of lung cancer - (Added by TW Conv)/Family history of lung cancer - (Added by TW Conv) Other Mother Alive and well; Heart disease Other 1 Family history of Cardiovascular disease; Diabetes Other 2 Family history of Diabetes mellitus; Other Other 3 Family history of Cancer, thyroid; Hypertension Other 4 Family history of Hypertension; Other Sister 2 Alive and well; Relation Name Status Comments Father Alive Maternal Grandfather Mother Alive Other 1 Other 2 Other 3 Other 4 Sister 1 Alive Sister 2 Social History Tobacco Use Types Packs/Day Years [...] on file Legal Sex Female 11:58 PM LINE INSTALLER REPAIRER Gender Identity Female 04/03/2018 2:53 PM LINE INSTALLER REPAIRER Sexual Orientation Not on file Obstetrics History Last Filed Vital Signs Vital Sign Reading Time Taken Comments Blood Pressure 117/70 05/18/2024 1:18 PM LINE INSTALLER REPAIRER Pulse 93 05/18/2024 1:18 PM LINE INSTALLER REPAIRER Temperature 36.6 C (97.8 F) 05/01/2024 1:26 PM LINE INSTALLER REPAIRER Respiratory Rate 20 10/05/2023 10:52 AM CDT Oxygen Saturation 97% 05/01/2024 1:26 PM LINE INSTALLER REPAIRER Inhaled Oxygen Concentration - - Weight 85.7 kg (189 lb) 05/18/2024 1:18 PM LINE INSTALLER REPAIRER Height 165.1 cm (5' 5 ) 05/18/2024 1:18 PM LINE INSTALLER REPAIRER Body Mass Index 31.45 05/18/2024 1:18 PM LINE INSTALLER REPAIRER Plan of Treatment Health Maintenance Due Date Last Done Comments Albumin Creatinine Ratio, Urine 1964 Breast Cancer Screening-Mammogram 1964 Colon Cancer Screening-Colonoscopy 1964 Depression Screening 1964 Hepatitis C Screening 1964 Dilated Eye Exam 1964 Foot Exam 1964 DTaP/Tdap/Td Vaccine (1 - Tdap) 1975 Hepatitis B Screening 1982 Regular Well Visit/Exam 18-64 1982 Pneumococcal vaccine <65 (1 of 2 - PCV) 1983 Zoster Vaccine (2 of 3) 12/26/2015 10/31/2015, 10/16 Cervical Cancer Screening 04/21/2022 04/21/2021 Covid-19 Vaccine (3 - 2023-2 5 season) 2023 04/29/2020, 04/01/2020 Influenza Vaccine (#1) 2023 10/31/2015, 2015 Hemoglobin A1C 04/26/2024 10/25/2023, 05/13, 11/03/2022, Additional history exists Lipid Panel 08/09/2024 08/10/2023, 05/12, 04/16/2020, Additional history exists eGFR 03/12/2025 03/12/2024, 11/0 10/2023, 10/05/2023, Additional history exists Procedures Procedure Name Priority Date/Time Associated Diagnosis Comments OR ARTHROCENTESIS ASPIR&/INJ MAJOR JT/BURSA W/US Routine 05/18/2024 1:00 PM LINE INSTALLER REPAIRER Bilateral knee swelling Chronic pain of both knees XR KNEE RIGHT 3 VIEWS Schedule Routine, Read Routine (OP Routine) 03/12/2024 11:34 AM LINE INSTALLER REPAIRER half-way (current) use of systemic steroids XR KNEE LEFT 3 VIEWS Schedule Routine, Read Routine (OP Routine) 03/12/2024 11:34 AM LINE INSTALLER REPAIRER half-way (current) use of systemic steroids EGFR Routine 03/12/2024 11:25 AM LINE INSTALLER REPAIRER CKD (chronic kidney disease) stage 4, GFR 15-29 ml/min (HCC) Vitamin D deficiency Proteinuria, unspecified type RENAL FUNCTION PANEL Routine 03/12/2024 11:25 AM LINE INSTALLER REPAIRER CKD (chronic kidney disease) stage 4, GFR 15-29 ml/min (HCC) Vitamin D deficiency Proteinuria, unspecified type VITAMIN D 25 HYDROXY Routine 03/12/2024 11:25 AM LINE INSTALLER REPAIRER CKD (chronic kidney disease) stage 4, GFR 15-29 ml/min ([facility]) Vitamin D deficiency Proteinuria, unspecified type PROTEIN / CREATININE RATIO, URINE, RANDOM Routine 03/12/2024 11:25 AM LINE INSTALLER REPAIRER CKD (chronic kidney disease) stage 4, GFR 15-29 ml/min (HCC) Vitamin D deficiency Proteinuria, unspecified type CRP (ACUTE PHASE) Routine 03/12/2024 11: 25 AM LINE INSTALLER REPAIRER terminal computer operator (current) use of systemic steroids ERYTHROCYTE SEDIMENTATION RATE Routine 03/12/2024 11:25 AM LINE INSTALLER REPAIRER half-way (current) use of systemic steroids IRON PROFILE W/ IBC Routine 03/12/2024 1 1:25 AM LINE INSTALLER REPAIRER terminal computer operator (current) use of systemic steroids VITAMIN B12 Routine 03/12/2024 11:25 AM LINE INSTALLER REPAIRER half-way (current) use of systemic steroids POCT HEMOGLOBIN A1C Routine 10/25/2023 9 :17 AM CDT Type 2 diabetes mellitus without complication, with long-term current use of insulin ([facility]) POCT LIPID PANEL Routine 08/10/2023 2:56 PM CDT Lipid screening from Last 3 Months or Most Recently Relevant to Health Maintenance Results * OR ARTHROCENTESIS ASPIR&/INJ MAJOR JT/BURSA W/US (05/18/2024 1:00 PM LINE INSTALLER REPAIRER) Narrative Ash Godwin DO - 05/18/2024 1:00 PM LINE INSTALLER REPAIRER Ash Godwin DO 05/18/2024 1:44 PM Large [...] guided left knee injection Patient name: Rosanne De Leonbernie Performing physician: ROSELYN Hernandez DO, CAQSM Reason [...] guided right knee injection Patient name: Rosanne Ly Yadira Performing physician: ROSELYN Hernandez DO, CAQSM Reason [...] knee right 3 views (03/12/2024 11:34 AM LINE INSTALLER REPAIRER) Anatomical Region Laterality Modality Lower Extremities, Knee Right Digital Radiography 03/12/2024 7:48 PM LINE INSTALLER REPAIRER Narrative 03/12/2024 7:49 PM LINE INSTALLER REPAIRER EXAM DESCRIPTION: XR KNEE LEFT 3 VIEWS; [...] 7:49 PM - Electronically signed by Ash Ruboi M.D. T: Report ID: [id number] Reading Location: [id number] Procedure Note Ash Rubio MD - 03/12/2024 [...] by Ash Rubio M.D. T: Report ID: [id number] Reading Location: [id number] Crissy Mcadams BOTTOM SANDER IMG XR PROCEDURES Final Result * X-ray knee left 3 views (03/12/2024 11:34 AM LINE INSTALLER REPAIRER) Anatomical Region Laterality Modality Lower Extremities, Knee Left Digital Radiography 03/12/2024 7:48 PM LINE INSTALLER REPAIRER Narrative 03/12/2024 7:49 PM LINE INSTALLER REPAIRER EXAM DESCRIPTION: XR KNEE LEFT 3 VIEWS; [...] by Ash Rubio M.D. T: Report ID: [id number] Reading Location: [id number] Procedure Note Ash Rubio MD - 03/12/2024 [...] by Ash Rubio M.D. T: Report ID: [id number] Reading Location: [place] [address] Crissy Mcadams BOTTOM SANDER IMG XR PROCEDURES Final Result * (ABNORMAL) eGFR (03/12/2024 11:25 AM LINE INSTALLER REPAIRER) eGFR 35(L) >=60 mL/min/1. 73 m2 Comment: [...] of Race in Diagnosing Kidney Disease, JASN 202). The CKD-EPI equation should not be used for patients with unstable renal function and has not been validated in children and those over 70. Current interpretive data was last reviewed 2021. Blood 03/12/2024 11:2 5 AM LINE INSTALLER REPAIRER 03/12/2024 8:18 PM LINE INSTALLER REPAIRER us Brittnee Blackwell MD LAB BLOOD ORDERABLES Fi nal Result Performing Organization Address City/[facility] Co de Phone Number [facility] [address] [address] [facility] [place] [place] [address] * (ABNORMAL) Iron profile w/ IBC (03/12/2024 11:25 AM LINE INSTALLER REPAIRER) [facility] Iron 37 35 - 145 mcg/dl TIBC 200(L) 250 - 400 mcg/dL [facility] Transferrin saturation 19(L) 20 - 50 % [facility] Blood 03/12/2024 11:2 5 AM LINE INSTALLER REPAIRER 03/12/2024 8:18 PM LINE INSTALLER REPAIRER Crissy Mcadams NP LAB BLOOD ORDERABLES Fi nal Result Performing Organization Address [facility] Co de Phone Number [facility] [address] [address] [facility] [employer] [place], [place] [id number] * (ABNORMAL) Protein / creatinine ratio, urine, random (03/12/2024 11:25 AM LINE INSTALLER REPAIRER) [facility] Protein, ur, quant 196.5 mg/dL Comment: Interpretive Data No reference range established. Current interpretive data was last revised 2018. Creatinine Ur 164.2 mg/dL [facility] Comment: Interpretive Data No reference range established. Current interpretive data was last revised 2018. Protein/creatinin e ratio 1,196.7(H ) 0.0 - 180.0 mg/g CR [facility] Urine 03/12/2024 11:2 5 AM LINE INSTALLER REPAIRER 03/12/2024 8:38 PM LINE INSTALLER REPAIRER Brittnee Blackwell MD LAB URINE ORDERABLES Fi nal Result Performing Organization Address [facility] Co de Phone Number [facility] [address] [address] [facility] [place] [place] [address] * (ABNORMAL) Vitamin D 25 hydroxy (03/12/2024 11:25 AM LINE INSTALLER REPAIRER) Vitamin D 25-OH 28(L) 30 - 80 ng/mL Blood 03/12/2024 11:2 5 AM LINE INSTALLER REPAIRER 03/12/2024 8:18 PM LINE INSTALLER REPAIRER us Brittnee Blackwell MD LAB BLOOD ORDERABLES Fi nal Result Performing Organization Address [facility] Co de Phone Number AL[facility] [phone] [address] [facility] [place] [place] [address] * Erythrocyte sedimentation rate (03/12/2024 11:25 AM LINE INSTALLER REPAIRER) Erythrocyte sedimentation rate 16 1 - 30 mm/hr Blood 03/12/2024 11:2 5 AM LINE INSTALLER REPAIRER 03/12/2024 8:18 PM LINE INSTALLER REPAIRER us Crissy Mcadams NP LAB BLOOD ORDERABLES Fi nal Result Performing Organization Address [facility] de Phone Number [facility] [address] [address] [facility] [place] [address] * (ABNORMAL) CRP (acute phase) (03/12/2024 11:25 AM LINE INSTALLER REPAIRER) CRP 18.4(H) <=10.0 mg/L Blood 03/12/2024 11:2 5 AM LINE INSTALLER REPAIRER 03/12/2024 8:18 PM LINE INSTALLER REPAIRER us Crissy Mcadams NP LAB BLOOD ORDERABLES Fi nal Result Performing Organization Address [facility] de Phone Number [facility] [phone] [address] [facility] [place] [address] * Vitamin B12 (03/12/2024 11:25 AM LINE INSTALLER REPAIRER) Vitamin B12 545 230 - 1,250 pg/mL Blood 03/12/2024 11:2 5 AM LINE INSTALLER REPAIRER 03/12/2024 8:18 PM LINE INSTALLER REPAIRER us Crissy Mcadams BOTTOM SANDER LAB BLOOD ORDERABLES Fi nal Result [place] [place] [address] [place] [address] * (ABNORMAL) Renal function panel (03/12/2024 11:25 AM LINE INSTALLER REPAIRER) Sodium 144 135 - 145 mmol/L Potassium, pl 4.7 3.3 - 4.9 mmol/L [facility] Chloride 112(H) 97 - 110 mmol/L [facility] CH CO2 17(L) 22 - 32 mmol/L [facility] CH Anion gap 15 2 - 15 mmol/L [facility] CH BUN 25 6 - 25 mg/dL [facility] Creatinine 1.69(H) 0.60 - 1.10 mg/dL [facility] [...] Calcium 9.3 8.5 - 10.3 mg/dL [facility] Phosphorus, pl 2.9 2.3 - 4.5 mg/dL [facility] CH Albumin 3.9 3.5 - 5.0 g/dL [facility] Blood 03/12/2024 11:2 5 AM LINE INSTALLER REPAIRER 03/12/2024 8:18 PM LINE INSTALLER REPAIRER Brittnee Blackwell MD LAB BLOOD ORDERABLES Fi nal Result [place] [address] Department [place] [address] * POCT hemoglobin A1c (10/25/2023 9:17 AM CDT) Hemoglobin A1C, POC 6.1 % Blood 10/25/2023 9:17 AM CDT us Juani Vargas MD POINT OF CARE TEST ORDERABLES F inal Result * POCT lipid panel (08/10/2023 2:56 PM CDT) Cholesterol, POC 187 mg/dL HDL, POC 30 mg/dL Triglycerides, POC 172 mg/dL LDL Cholesterol POC 122 mg/dL Chol/HDL Ratio, POC 4.1 Non-HDL Cholesterol, POC 157 mg/dL Cholesterol Total, POC 187 mg/dL Capillary blood 08/10/2023 2 :56 PM CDT us Francisco Javier Uriostegui MD POINT OF CARE TEST ORDERABLES Ed ited Result - Final from Last 3 Months or Most Recently Relevant to Health Maintenance Insurance [employer] ACCESS CHOICE Care Teams Ball Holder Relationship Specialty Start Date End Date Cheikh Ackerman MD [address] [place] [address] PCP - General 06/11/16 [place] [address] [place] [address] [address] [place] [address] Referring Physician Nephrology 04/24/20 Francisco Javier Uriostegui MD [address] [facility] [address] [place] [address] Consulting Physician Cardiology 11/22/22
--- OUTSIDE RECORDS SUMMARY | 2024-05-19 13:26 | XMS_ITS | Encounter Summary ---
Author Organization [facility] Care Team Providers Care Front Tender Name Role Phone Cheikh Ackerman MD Primary Care Prov ider Cheikh Ackerman MD Primary Care Prov ider Cheikh Ackerman MD Primary Care Prov ider Pepe Nicole MD Unavailable [phone] Francisco Javier Uriostegui MD Unavailable Encounter Details Date Type Department Care Team (Latest Contact Info) Description 03/04/2016 Orders Only [facility] ProviderYohan MD [address] [place] [address] Social History Tobacco Use Types Packs/Day Years Used Date Smoking Tobacco: Never Assessed Comments Unknown Sex and Gender Information Value Date Recorded Sex Assigned at Not on file Legal Sex Female 11:58 PM TECHNOLOGY ENGINEER Gender Identity Female 04/03/2018 2:53 PM TECHNOLOGY ENGINEER Sexual Orientation Not on file documented as of this encounter Plan of Treatment Not on file documented as of this encounter Procedures Procedure Name Priority Date/Time Associated Diagnosis Comments SCAN - LABS 03/04/2016 12:00 AM TECHNOLOGY ENGINEER documented in this encounter Results * SCAN - LABS (03/04/2016 12:00 AM TECHNOLOGY ENGINEER) Narrative 03/04/2016 12:00 AM TECHNOLOGY ENGINEER Ordered by an unspecified provider. us Historical Provider Final Res ult documented in this encounter Visit Diagnoses Not on filedocumented in this encounter Care Teams Front Tender Relationship Specialty Start Date End Date Cheikh Ackerman MD [address] [place] [address] PCP - General 06/11/16 Cheikh Ackerman MD [address] [place] [address] PCP - General 05/04/16 06/10/16 Cheikh Ackerman MD [address] [place] [address] PCP - General 04/25/06 05/03/16 Pepe Nicole MD [address] [place] [address] Referring Physician Nephrology 04/24/20 Francisco Javier Uriostegui MD [address] [facility] [address] [place] [address] Consulting Physician Cardiology 11/22/22 documented as of this encounter
--- OUTSIDE RECORDS SUMMARY | 2024-05-19 13:26 | XMS_ITS | Encounter Summary ---
Author Organization [facility] Address [address] [address] Care Team Providers Care Window Framer Name Role Phone Cheikh Ackerman MD Primary Care Prov ider Cheikh Ackerman MD Primary Care Prov ider Cheikh Ackerman MD Primary Care Prov ider Pepe Nicole MD Unavailable [phone] Francisco Javier Uriostegui MD Unavailable Encounter Details Date Type Department Care Team (Late st Contact Info) Description 10/08/2015 Orders Only [facility] Provider, MD Yohan [address] [place] [address] Social History Tobacco Use Types Packs/Day Years Used Date Smoking Tobacco: Never Assessed Comments Unknown Sex and Gender Information Value Date Recorded Sex Assigned at Not on file Legal Sex Female 11:58 PM MUTUAL FUND MANAGER Gender Identity Female 04/03/2018 2:53 PM MUTUAL FUND MANAGER Sexual Orientation Not on file documented as of this encounter Plan of Treatment Not on file documented as of this encounter Procedures Procedure Name Priority Date/Time Associated Diagnosis Comments CARDIOLOGY REPORT 12/05/2015 12: 00 AM CDT CARDIOLOGY REPORT 10/08/2015 documented in this encounter Results * CARDIOLOGY REPORT (12/05/2015 12:00 AM CDT) Anatomical Region Laterality Modality Other Narrative 12/05/2015 12:00 AM CDT Ordered by an unspecified provider. Historical Provider [facility] C[facility]IAC SERVICES PROCE DURES Final Result * CARDIOLOGY REPORT (10/08/2015) Anatomical Region Laterality Modality Other Narrative 10/08/2015 Ordered by an unspecified provider. Historical Provider CV CARDIAC SERVICES PROCE DURES Final Result documented in this encounter Visit Diagnoses Not on filedocumented in this encounter Care Teams Window Framer Relationship Specialty Start Date End Date Cheikh Ackerman MD [address] [place] [address] PCP - General 06/11/16 Cheikh Ackerman MD [address] [place] [address] PCP - General 05/04/16 06/10/16 Cheikh Ackerman MD [address] [place] [address] PCP - General 04/25/06 05/03/16 [place] [address] [place] [address] [address] [place] [address] Referring Physician Nephrology 04/24/20 Francisco Javier Uriostegui MD [address] [facility] [address] [facility] [address] [place] [address] Consulting Physician Cardiology 11/22/22 documented as of this encounter
--- OUTSIDE RECORDS SUMMARY | 2024-05-19 13:27 | XMS_ITS | Encounter Summary ---
Author Organization [facility] Address [address] [place] [address] Care Team Providers Care Binder Lockstitch Name Role Phone Cheikh Ackerman MD Primary Care Prov ider Pepe Nicole MD Unavailable [phone] Francisco Javier Uriostegui MD Unavailable Encounter Details Date Type Department Care Team (Latest Contact Info) Description 05/18/2024 1:40 PM QUALITY REVIEWER - 05/18/2024 11:59 PM QUALITY REVIEWER Hospital Encounter [address] [address] Bilateral knee swelling; Chronic pain of both knees Discharge Disposition: Discharge to home or self care Social History Tobacco Use Types Packs/Day Years [...] on file Legal Sex Female 11:58 PM QUALITY REVIEWER Gender Identity Female 04/03/2018 2:53 PM QUALITY REVIEWER Sexual Orientation Not on file documented as of this encounter Medications at Time of Discharge acetaminophen ER (TYLENOL ARTHRITIS PAIN) 650 mg 8 hr tablet take 2 tablet by oral route twice daily as needed swallowing whole with water. Do not break, crush, dissolve and/or chew. 0 0 05/25/2016 BD INTEGRA SYRINGE 3 mL 25 gauge x 1 syringe 6 10/01/2017 blood glucose diagnostic (ONETOUCH ULTRA TEST) strip Test sugars two times per day as directed 200 3 11/06/2007 blood-glucose sensor (Maxymiser G7 Sensor) device CHANGE SENSOR EVERY 10 DAYS 3 each 11 04/30/2024 clopidogreL (PLAVIX) 75 mg tablet TAKE 1 TABLET(75 MG) BY MOUTH DAILY 90 tablet 1 01/23/2024 ergocalciferol (VITAMIN D) 50,000 unit capsule Take 1 capsule (50,000 Units total) by mouth every 14 (fourteen) days 6 capsule 3 03/20/2024 evolocumab (Repatha SureClick) 140 mg/mL pen injector Inject 1 mL (140 mg total) under the skin every 14 (fourteen) days 2 mL 11 08/11/2023 furosemide (LASIX) 40 mg tablet TAKE 1 TABLET BY MOUTH DAILY NEEDED FOR LOWER EXTREMITY SWELLING 90 tablet 05/10/2024 insulin aspart (NovoLOG) 100 unit/mL vial for injectionIndicat ions:Type 2 diabetes mellitus without complication, with long-term current use of insulin ([facility]) USE WITH INSULIN PUMP, MAXIMUM DAILY DOSE IS 120 UNITS 110 mL 2 01/05/2024 insulin glargine (LANTUS) 100 unit/mL (3 mL) pen for injection Inject 54 units. 1 times per day when off pump TDD 54 units. 15 mL 1 04/27/2023 insulin lispro (HumaLOG) 100 unit/mL vial for injectionIndicat ions:Type 2 diabetes mellitus without complication, with long-term current use of insulin ([facility]) Use the insulin for insulin pump max TDD 120 units daily 110 mL 3 01/06/2024 insulin syringe-needle U-100 (BD Insulin Syringe Ultra-Fine) 0.3 mL 31 gauge x 5/16 syringe Use to inject insulin 5 times per day when off pump 100 each 1 04/27/2023 lancets (onetouch ultrasoft) misc Test sugars two times per day as directed 200 3 11/06/2007 LORazepam (ATIVAN) 0.5 mg tablet Take 1 tablet (0.5 mg total) by mouth as needed 01/10/2023 losartan (COZAAR) 50 mg tablet Take 1 tablet (50 mg total) by mouth daily 30 tablet 11 09/20/2023 metoprolol XL (TOPROL-XL) 50 mg extended release tablet TAKE 1 TABLET(50 MG) BY MOUTH DAILY 90 tablet 3 05/10/2024 nystatin powder Apply topically 4 (four) times a day 15 g 1 05/01/2024 6 pen needle, diabetic (BD Vicki 2nd Gen Pen Needle) 32 gauge x needle Use to inject insulin 4 times per day - when off pump 100 each 3 04/28/2023 traMADoL (ULTRAM) 50 mg tablet Take 1 tablet (50 mg total) by mouth as needed for pain documented as of this encounter Discharge Disposition Disposition Code Departure Means Destination Discharge to home or self care documented in this encounter Plan of Treatment Pending Results Name Type Priority Associated Diagnoses Date /Time Crystal Analysis, Body Fluid Lab Routine Bilateral knee swelling Chronic pain of both knees 05/18/2024 1:40 PM QUALITY REVIEWER Scheduled Orders Name Type Priority Associated Diagnoses Orde r Schedule Crystal Analysis, Body Fluid Lab Routine Bilateral knee swelling Chronic pain of both knees Once for 1 Occurrences starting 05/18/2024 until 05/18/2024 documented as of this encounter Visit Diagnoses Diagnosis Bilateral knee swelling Chronic pain of both knees documented in this encounter Care Teams Binder Lockstitch Relationship Specialty Start Date End Date Cheikh Ackerman MD [address] [place] [address] PCP - General 06/11/16 Pepe Nicole MD [address] [facility] [address] [place] [address] Referring Physician Nephrology 04/24/20 Francisco Javier Uriostegui MD [address] [facility] [address] [place] [address] Consulting Physician Cardiology 11/22/22 documented as of this encounter
--- OUTSIDE RECORDS SUMMARY | 2024-05-19 13:27 | XMS_ITS | Encounter Summary ---
Author Organization [facility] Address [address] [place] [address] Care Team Providers Care Counter Clerk [employer] Name Role Phone Cheikh Ackerman MD Primary Care Prov ider Pepe Nicole MD Unavailable [phone] Francisco Javier Uriostegui MD Unavailable Reason for Referral * Injectables (Routine) - Pending Review Specialty Diagnoses / Procedures Referred By Debi hunter Referred To Contact Diagnoses Bilateral knee swelling Chronic pain of both knees Procedures Large Joint Injection w/ Ultrasound Guidance: bilateral knee Ash Godwin DO [address] [address] Phone: tel: fax: [facility] Referral ID Status Reason Start Date Expiration Date V isits Requested Visits Authorized [id number] Pending Review 05/18/2024 06/17/2025 1 1 X OPERATOR Reason for Visit * Reason Comments Follow-up Follow-up Encounter Details Date Type Department Care Team (Late st Contact Info) Description 05/18/2024 1:00 PM TELEX OPERATOR Office Visit [facility] Sports Medicine and Primary Care at [address] [place] [address] Ash Godwin DO [address] [place] [address] Bilateral knee swelling (Primary Dx); Chronic pain of both knees Social History Tobacco Use Types Packs/Day Years [...] on file Legal Sex Female 11:58 PM TELEX OPERATOR Gender Identity Female 04/03/2018 2:53 PM TELEX OPERATOR Sexual Orientation Not on file documented as of this encounter Last Filed Vital Signs Vital Sign Reading Time Taken Comments Blood Pressure 117/70 05/18/2024 1:18 PM TELEX OPERATOR Pulse 93 05/18/2024 1:18 PM TELEX OPERATOR Temperature - - Respiratory Rate - - Oxygen Saturation - - Inhaled Oxygen Concentration - - Weight 85.7 kg (189 lb) 05/18/2024 1:18 PM TELEX OPERATOR Height 165.1 cm (5' 5 ) 05/18/2024 1:18 PM TELEX OPERATOR Body Mass Index 31.45 05/18/2024 1:18 PM TELEX OPERATOR documented in this encounter Progress Notes * Ash Godwin, DO - 05/18/2024 1:00 PM CST Images from the original note were not included. NEW PATIENT VISIT Subjective CHIEF COMPLAINT She had concerns including Follow-up of the Left Knee and Follow-up of the Right Knee. HISTORY OF PRESENT ILLINESS Rosanne is here for her bilateral ultrasound-guided aspiration and injection of the knees. Patient states the pain is the same as it was before. She has been working with a hairspring fabrication supervisor who will be hoping for some aspiration to send out. Discussed the risks and benefits of the procedure today. Discussed the conservative management including continued PT and medications with avoidance of offendingactivities. Discussed the outcomes of each different treatment process and their potential outcomes. Went over the moderate risk nature of this procedure including the risks of: infection, bleeding, damage to tendon/ligament, damage to nerves/vessels, and possible need for further intervention at alater date. Explained to patient that their particular medical problems including obesity and RA aswell as DM will increase the risk in this case. Patient agreed to pursue the procedure and we will schedule for this at the next visit. MEDICATIONS She has a current medication list which includes the following prescription(s): tylenol arthritis pain, bd integra syringe, onetouch ultra test, dexcom g7 sensor, clopidogrel, ergocalciferol, repathasureclick, furosemide, insulin aspart, lantus, insulin lispro, insulin syringe-needle u-100, onetouch ultrasoft, lorazepam, losartan, metoprolol xl, nystatin, pen needle, diabetic, and tramadol. ALLERGIES She is allergic to itraconazole. REVIEW OF SYSTEMS Review of Systems Constitutional: Negative for chills, diaphoresis and fever. HENT: Negative for sore throat and tinnitus. Eyes: Negative for photophobia. Respiratory: Negative for shortness of breath and wheezing. Cardiovascular: Negative for chest pain and palpitations. Gastrointestinal: Negative for diarrhea, nausea and vomiting. Musculoskeletal: Positive for arthralgias. Objective PHYSICAL EXAM BP 117/70 Pulse 93 Ht 165.1 cm (5' 5 ) Wt 85.7 kg (189 lb) BMI 31.45 kg/m?? Assessment/Plan Rosanne was seen today for follow-up and follow-up. Diagnoses and all orders for this visit: Bilateral knee swelling Chronic pain of both knees Attempted aspiration and injections were done in the office today as noted in the procedure note. Unfortunately the left knee did not have any fluid accumulation so injection was done alone. On the right side and attempt was made it aspiration as there was a little bit of fluid but hardly any of significance, and about 1 mL of fluid was withdrawn. This had a normal looking yellow straw like appearance with no signs of any cloudiness. An attempt was made to send this off for crystal analysis, but more than likely this will not be enough to get any positive testing for. We will make this attempt however. Injection was done into the right knee as well. Patient advised to follow up if there is any issues or concerns. Ash Godwin DO X OPERATOR documented in this encounter Procedure Notes * Ash Godwin DO - 05/18/2024 1:00 PM CSTAssociated Order(s): Large Joint Injection w/ Ultrasound Guidance: bilateral knee Post-Procedure Diagnose(s): Bilateral knee swelling; Chronic pain of both knees Large Joint Injection w/ Ultrasound Guidance: bilateral [...] supine with the left knee in passive 30?? of flexion. The lateral knee was sterilized using Hibiclens. The L4-12 T transducer was placed on the proximal portion of the knee identifying thesuprapatellar recess and joint capsule in long axis. [...] of 5 cc of 2% lidocaine without epinephrine+ 80mg of DepoMedrol were injected into the joint capsule. Flow of fluid within the joint capsule was noted for confirmation of placement. Needle was removed, the area was cleansed, and covered with a Band-Aid. Impression: 1 - successful injection of the left knee capsule under ultrasound guidance Procedure #2: Ultrasound guided right knee injection Patient name: Rosanne May Performing physician: Ash Messmer DO, FAOASM, CAQSM Reason for procedure: Right knee pain and swelling Patient is supine with the right knee in passive 30?? of flexion. The lateral knee was sterilized [...] straw colored fluid was removed. Subsequently, a substrateof 5 cc of 2% lidocaine without epinephrine [...] %); 80 mg methylPREDNISolone acetate 80 mg/mL X OPERATOR documented in this encounter Miscellaneous Notes * Addendum Note - Amanda Austin MA - 05/18/2024 1:00 PM CSTAddended by: AMANDA AUSTIN on: 05/18/2024 02:18 PM Modules accepted: Orders X OPERATOR documented in this encounter Plan of Treatment Pending Results Name Type Priority Associated Diagnoses Date /Time Crystal Analysis, Body Fluid Lab Routine Bilateral knee swelling Chronic pain of both knees 05/18/2024 1:40 PM TELEX OPERATOR Scheduled Orders Name Type Priority Associated Diagnoses Orde r Schedule Crystal Analysis, Body Fluid Lab Routine Bilateral knee swelling Chronic pain of both knees Expected: 05/18/2024, Expires: 05/18/2025 documented as of this encounter Procedures Procedure Name Priority Date/Time Associated Diagnosis Comments MI ARTHROCENTESIS ASPIR&/INJ MAJOR JT/BURSA W/US Routine 05/18/2024 1:00 PM TELEX OPERATOR Bilateral knee swelling Chronic pain of both knees documented in this encounter Results * MI ARTHROCENTESIS ASPIR&/INJ MAJOR JT/BURSA W/US (05/18/2024 1:00 PM TELEX OPERATOR) Narrative Ash Godwin DO - 05/18/2024 1:00 PM TELEX OPERATOR Ash Godwin DO 05/18/2024 1:44 PM Large [...] injection Patient name: Rosanne May Performing physician: Ash Godwin DO, ROSELYN, CHANDLERM Reason for procedure: Right knee pain and [...] DO IN CLINIC/BEDSIDE [facility] Final Result documented in this encounter Visit Diagnoses Diagnosis Bilateral knee swelling- Primary Chronic pain of both knees documented in this encounter Administered Medications Inactive Administered Medications - up to 3 most recent administrations Medication Order MAR Action Action Date Dose Rate Site lidocaine (PF) (XYLOCAINE) 20 mg/mL (2 %) preservative free injection 5 mL 5 mL, One-Time Injection, Starting on Tue05/18/24 at 1300, For 1 doseIndications:Bilateral knee swelling,Chronic pain of both knees Given 05/18/2024 1:00 PM TELEX OPERATOR 5 mL lidocaine (PF) (XYLOCAINE) 20 mg/mL (2 %) preservative free injection 5 mL 5 mL, One-Time Injection, Starting on Tue05/18/24 at 1300, For 1 doseIndications:Bilateral knee swelling,Chronic pain of both knees Given 05/18/2024 1:00 PM TELEX OPERATOR 5 mL methylPREDNISolone acetate (DEPO-medrol) injection 80 mg 80 mg, intra-articular, One-Time Injection, Starting on Tue05/18/24 at 1300, For 1 doseIndications:Bilateral knee swelling,Chronic pain of both knees Given 05/18/2024 1:00 PM TELEX OPERATOR 80 mg methylPREDNISolone acetate (DEPO-medrol) injection 80 mg 80 mg, intra-articular, One-Time Injection, Starting on Tue05/18/24 at 1300, For 1 doseIndications:Bilateral knee swelling,Chronic pain of both knees Given 05/18/2024 1:00 PM TELEX OPERATOR 80 mg documented in this encounter Care Teams Counter Clerk [employer] Relationship Specialty Start Date End Date Cheikh Ackerman MD [address] [place] [address] PCP - General 06/11/16 Pepe Nicole MD [address] [place] [address] Referring Physician Nephrology 04/24/20 Francisco Javier Uriostegui MD [address] [facility] [address] [facility] [address] [place] [address] Consulting Physician Cardiology 11/22/22 documented as of this encounter
--- OUTSIDE RECORDS SUMMARY | 2024-05-19 13:27 | XMS_ITS | Clinical Summary ---
Author Organization [facility] Address [address] [place] [address] Care Team Providers Care Pond Worker Name Role Phone David Euceda Primary Care Provider [phone] Allergies Active Allergy Reactions Criticality Noted Date Comments Itraconazole Itching Low 04/21/2021 Medications clopidogrel 75 MG tablet Take 1 tablet by mouth daily. 1 Active CONTOUR NEXT TEST test strip TAKE DIRECTED FOUR TIMES DAILY 2 Active insulin aspart 100 UNIT/ML injection (VIAL) USE UP TO 100 UNITS DAILY VIA PUMP UNDER THE SKIN DIRECTED 1 Active rosuvastatin 20 MG tablet Take 20 mg by mouth daily. 2 Active vitamin D3, cholecalciferol, 1000 UNIT Tab tablet Take 1 tablet by mouth daily. Active vitamin C 1000 MG tablet Take 1,000 mg by mouth daily. Active zinc gluconate 50 MG Tab Take 1 tablet by mouth daily. Active Insulin Pump Accessories MiscIndications: MEDTRONIC Indications: MEDTRONIC Active clobetasol 0.05 % creamIndications :Chronic vulvitis Apply topically 2 (two) times daily. 60 g 2 Active Active Problems No known active problems Immunizations Name Administration Dates Next Due MODERNA COVID-19 (12+) MRNA, LNP-S, PF, 100 MCG/ 0.5 ML DOSE 04/29/2020,04/01/2020 Family History Medical History Relation Comments Cancer Father THYROID Heart Disease Father Cancer Mother female Heart Disease Mother pace maker Other Mother schogrins diseas e Relation Status Comments Father Alive Mother Social History Tobacco Use Types Packs/Day Years Used Date Smoking Tobacco: Never Smokeless Tobacco: Never Tobacco Cessation:Counseling Given: No Alcohol Use Standard Drinks/Week Comments Yes 0 (1 standard drink = 0.6 oz pur e alcohol) social PHQ-2 Answer Date Recorded PHQ-2 Score - If the patient scores above 3, please move on to questions 3-9 2 04/21/2021 Comments No Sex and Gender Information Value Date Recorded Sex Assigned at Not on file Legal Sex Female 5:38 PM AEROGRAPHER Gender Identity Not on file Sexual Orientation Not on file Last Filed Vital Signs Vital Sign Reading Time Taken Comments Blood Pressure 152/90 04/21/2021 4:02 PM AEROGRAPHER Pulse 78 04/21/2021 4:02 PM AEROGRAPHER Temperature 37.1 C (98.7 F) 04/21/2021 4:02 PM AEROGRAPHER Respiratory Rate 18 04/21/2021 4:02 PM AEROGRAPHER Oxygen Saturation 98% 04/21/2021 4:02 PM AEROGRAPHER Inhaled Oxygen Concentration - - Weight 91.2 kg (201 lb) 04/21/2021 4:02 PM AEROGRAPHER Height 165.1 cm (5' 5 ) 04/21/2021 4:02 PM AEROGRAPHER Body Mass Index 33.45 04/21/2021 4:02 PM AEROGRAPHER Plan of Treatment Health Maintenance Due Date Last Done Comments Colorectal Cancer Screening Colonoscopy (10 Years) 1964 Hepatitis C 1982 DTaP, Tdap and Td Vaccines ( 1 - Tdap) 1983 Mammogram Screening 2004 Zoster Vaccines (1 of 2) 2014 Annual Physical 04/21/2022 04/21/2021 COVID-19 Vaccine (3 - 2023-2 5 season) 2023 04/29/2020, 04/01/2020 Influenza Adult (#1) 2023 Cervical Cancer Screening Pa p Smear (Age 30 to 64) Every 3 Years 04/21/2024 04/21/2021 Cervical Cancer Screening Pa p with HPV Testing (Age 30 to 64) Every 5 Years 04/21/2026 04/21/2021 Cervical Cancer Screening wi th HPV 04/21/2026 RSV Immunization or 60+ Years (1 - 1-dose 75+ series) 2039 Meningococcal B Vaccine Aged Out No l onger eligible based on patient's age to complete this topic Meningococcal Vaccine Aged Out No nydia derrell eligible based on patient's age to complete this topic Pneumococcal Vaccine: Pediatrics (0 to 5 Years) and At-Risk Patients (6 to 64 Years) Aged Out No longer eligible b ased on patient's age to complete this topic RSV Immunizations Under 20 Months Aged Out No longer eligible b ased on patient's age to complete this topic Procedures Procedure Name Priority Date/Time Associated Diagnosis Comments HUMAN PAPILLOMAVIRUS, HIGH-RISK TYPES Routine 04/21/2021 12:00 PM AEROGRAPHER CYTOPATH CERV/VAG THIN LAYER Routine 04/21/2021 8:03 AM AEROGRAPHER from Last 3 Months or Most Recently Relevant to Health Maintenance Results * HUMAN PAPILLOMAVIRUS, HIGH-RISK TYPES (04/21/2021 12:00 PM AEROGRAPHER) SPEC DESCRIPTION CERVICAL/END OCERVICAL 04/23/2021 9:25 AM AEROGRAPHER [facility] HPV DNA HIGH RISK NEGATIVE NEGATIVE 04/24/2021 11:54 AM AEROGRAPHER [facility] Comment:SEE CYTOLOGY REPORT 04/21/2021 12:0 0 PM AEROGRAPHER David GÓMEZ PATHOLOGY/CYTOLOGY ORDERABLE S Final Result [facility] [address] [place] [address], * Cytopath Cerv/Vag Thin Layer (04/21/2021 8:03 AM AEROGRAPHER) THIN PREP PAP [facility] [address] [place] [address] Department of Pathology Pathology Report CERVICAL/VAGINAL PAP SMEAR REPORT Name: ROSANNE SIDHU Age: 2 1965 (Age: 55) Location: [facility] Sex: F Collected Date: 04/21/2021 [facility] #: [id number] Date Received: 04/23/2021 Date Reported: 04/28/2021 Provider: DAVID GÓMEZ INTERPRETATION ABNORMAL RESULT CERVICAL/ENDOCERVI CARMELO: SATISFACTORY FOR EVALUATION. ENDOCERVICAL/TRANS FORMATION ZONE COMPONENT PRESENT. ATYPICAL SQUAMOUS CELLS OF UNDETERMINED SIGNIFICANCE. NEGATIVE FOR HIGH RISK HPV. The FDA approved Aptima HPV assay is an in vitro nucleic acid amplification test for the qualitative detection of E6/E7 viral messenger RNA (mRNA) from 14 high-risk types of human papillomavirus (HPV) in cervical specimens. The high-risk HPV types detected by the assay include: 16,18,31,33,35,39, 45,51,52,56,58,59, 66, and 68. Electronically Signed Out Niki Teran M.D. Lulu Barry, CT (ASCP) CLINICAL HISTORY Z12.4 SCREENING PAP TEST ThinPrep Pap Test with HR HPV testing in patient > 30 years requested. Date of Last Menstrual Period: YEARS Menstrual Status: Post-Menopausal SPECIMEN SUBMITTED CERVICAL/ENDOCERVI CARMELO Specimen Received:1 Thin Prep Vial, Image Assisted Pap (SMD) Please note: The Pap smear is not a diagnostic test. It is a screening test. Negative results on combined screening (Pap test and HPV-DNA) have a high negative predictive value (99.1-100 percent) for cervical cancer. The pap test is not effective in detecting cervical adenocarcinoma. [facility] 04/21/2021 8:03 AM AEROGRAPHER 04/23/2021 8:03 AM AEROGRAPHER Comment:CERVICAL/ENDOCERVICA L us David GÓMEZ PATHOLOGY/CYTOLOGY ORDERABLE S Final Result [facility] [address] [place] [address], from Last 3 Months or Most Recently Relevant to Health Maintenance Insurance [facility] Care Teams Pond Worker Relationship Specialty [place] [address] [place] [address] PCP - General PHYSICIAN DEGREASING SOLUTION RECLAIMER 04/08/21
[2024-05-19 13:41] LABS: Hemoglobin 11.6 g/dL (12.0-15.0); Mean Corpuscular HGB Conc 32.2 g/dl (32-36); Mean Corpuscular Hemoglobin 27.8 pg (26-34); Mean Corpuscular Volume 86.3 fl (80-100); Mean Platelet Volume 10.2 fl (7.4-10.4); Platelet Count Result 271 k/mm3 (150-375); Red Blood Count 4.17 M/mm3 (4.2-5.4); Red Cell Distribution Width 15.3 % (11.5-14.5); White Blood Count 7.7 K/mm3 (4.5-10.0)
[2024-05-19 14:03] LABS: LDL Cholesterol Direct 43 mg/dL
[2024-05-19 14:44] LABS: Alanine Aminotransferase 14 U/L (6-35); Albumin Level 3.4 g/dL (3.5-5.1); Alkaline Phosphatase 65 U/L (38-126); Anion Gap 10 mmol/L (4-12); Aspartate Amino Transferase 19 U/L (14-36); Bilirubin,Total 0.7 mg/dL (0.2-1.3); Blood Urea Nitrogen 24 mg/dL (7-17); Calcium 8.2 mg/dL (8.4-10.2); Carbon Dioxide 34 mmol/L (22-30); Chloride 96 mmol/L (98-107); Cholesterol 214 mg/dL (0-200); Estimated Glomerular Filt Rate 27; Glucose 150 mg/dL (65-110); HDL Direct 45 mg/dL; Potassium 2.5 mmol/L (3.4-5.0); Sodium 140 mmol/L (137-145); Triglycerides 340 mg/dL (<150)
== END 2024-05-19 13:24 | disposition home or self-care (01) ==
LOC: ANHLAB 13:24
PROVIDERS: PCP Family Medicine Adolescent Medicine; Visit Provider Family Medicine Adolescent Medicine
DX: E11.65 Type 2 diabetes mellitus with hyperglycemia (principal); E11.22 Type 2 diabetes mellitus with diabetic chronic kidney disease; I12.9 Hypertensive chronic kidney disease with stage 1 through stage 4 chronic kidney disease, or unspecified chronic kidney disease; N18.32 Chronic kidney disease, stage 3b; R19.7 Diarrhea, unspecified; E78.00 Pure hypercholesterolemia, unspecified; M06.9 Rheumatoid arthritis, unspecified; R35.0 Frequency of micturition; Z79.4 Long term (current) use of insulin
CPT/HCPCS: 36415; 80053; 80061; 83036; 83497; 85027

== ENCOUNTER 2024-05-19 17:20 | Inpatient (IN) | payer BC, SELFPAY ==
[2024-05-19] VITALS (21 sets, daily range): BP systolic 127–174; BP diastolic 55–129; PULSE 62–80; RESP 13–30; TEMP 36.4; O2SAT 91–100
--- NOTE | ~2024-05-19 | US_ITS ---
EXAMINATION: US venous doppler [facility] DATE: 05/20/2024 15:03 INDICATION: Bilateral lower extremity edema, . TECHNIQUE: Grayscale images without and with compression and Doppler images of the bilateral lower ex tremity veins were obtained. COMPARISON: None FINDINGS: The right common femoral vein, profunda (deep) femoral vein, femoral vein, popliteal vein, peroneal v ein, posterior tibial veins, gastrocnemius vein, and greater saphenous vein are patent. The left common femoral vein, profunda (deep) femoral vein, femoral vein, popliteal vein, peroneal v ein, posterior tibial veins, gastrocnemius vein, and greater saphenous vein are patent. IMPRESSION: Patent bilateral lower extremity veins. No evidence of deep venous thrombosis. Reviewed, dictated and finalized at location K.
--- OUTSIDE RECORDS SUMMARY | 2024-05-19 17:22 | XMS_ITS | Encounter Summary ---
Author Organization [facility] Care Team Providers Care Dynamics Ax Consultant Name Role Phone Cheikh Ackerman MD Primary Care Prov ider Cheikh Ackerman MD Primary Care Prov ider Cheikh Ackerman MD Primary Care Prov ider Pepe Nicole MD Unavailable [phone] Francisco Javier Uriostegui MD Unavailable Encounter Details Date Type Department Care Team (Latest Contact Info) Description 02/26/2016 Orders Only [facility] ProviderYohan MD [address] [place] [id number] Social History Tobacco Use Types Packs/Day Years Used Date Smoking Tobacco: Never Assessed Comments Unknown Sex and Gender Information Value Date Recorded Sex Assigned at Not on file Legal Sex Female 11:58 PM ELECTRONIC CONTROLS REPAIRER SUPERVISOR Gender Identity Female 04/03/2018 2:53 PM ELECTRONIC CONTROLS REPAIRER SUPERVISOR Sexual Orientation Not on file documented as of this encounter Plan of Treatment Not on file documented as of this encounter Procedures Procedure Name Priority Date/Time Associated Diagnosis Comments PROCEDURE - RESULT 02/26/2016 12 :00 AM ELECTRONIC CONTROLS REPAIRER SUPERVISOR documented in this encounter Results * PROCEDURE - RESULT (02/26/2016 12:00 AM ELECTRONIC CONTROLS REPAIRER SUPERVISOR) Narrative 02/26/2016 12:00 AM ELECTRONIC CONTROLS REPAIRER SUPERVISOR Ordered by an unspecified provider. us Historical Provider Final Res ult documented in this encounter Visit Diagnoses Not on filedocumented in this encounter Care Teams Dynamics Ax Consultant Relationship Specialty Start Date End Date Cheikh Ackerman MD [address] [place] [address] PCP - General 06/11/16 Cheikh Ackerman MD [address] [place] [address] PCP - General 05/04/16 06/10/16 Cheikh Ackerman MD [address] [place] [address] PCP - General 04/25/06 05/03/16 Pepe Nicole MD [address] [place] [address] Referring Physician Nephrology 04/24/20 Francisco Javier Uriostegui MD [address] [facility] [place] [address] Consulting Physician Cardiology 11/22/22 documented as of this encounter
--- OUTSIDE RECORDS SUMMARY | 2024-05-19 17:22 | XMS_ITS | Clinical Summary ---
Author Organization [facility] Address [address] [place] [address] Care Team Providers Care Hospital Supervisor Name Role Phone David Euceda Primary Care Provider [phone] Allergies Active Allergy Reactions Criticality Noted Date [...] on file Legal Sex Female 5:38 PM VP CLINICAL Gender Identity Not on file Sexual Orientation Not on file Last Filed Vital Signs Vital Sign Reading Time Taken Comments Blood Pressure 152/90 04/21/2021 4:02 PM VP CLINICAL Pulse 78 04/21/2021 4:02 PM VP CLINICAL Temperature 37.1 C (98.7 F) 04/21/2021 4:02 PM VP CLINICAL Respiratory Rate 18 04/21/2021 4:02 PM VP CLINICAL Oxygen Saturation 98% 04/21/2021 4:02 PM VP CLINICAL Inhaled Oxygen Concentration - - Weight 91.2 kg (201 lb) 04/21/2021 4:02 PM VP CLINICAL Height 165.1 cm (5' 5 ) 04/21/2021 4:02 PM VP CLINICAL Body Mass Index 33.45 04/21/2021 4:02 PM VP CLINICAL Plan of Treatment Health Maintenance Due Date [...] PAPILLOMAVIRUS, HIGH-RISK TYPES Routine 04/21/2021 12:00 PM VP CLINICAL CYTOPATH CERV/VAG THIN LAYER Routine 04/21/2021 8:03 AM VP CLINICAL from Last 3 Months or Most Recently Relevant to Health Maintenance Results * HUMAN PAPILLOMAVIRUS, HIGH-RISK TYPES (04/21/2021 12:00 PM VP CLINICAL) SPEC DESCRIPTION CERVICAL/END OCERVICAL 04/23/2021 9:25 AM VP CLINICAL [facility] HPV DNA HIGH RISK NEGATIVE NEGATIVE 04/24/2021 11:54 AM VP CLINICAL [facility] Comment:SEE CYTOLOGY REPORT 04/21/2021 12:0 0 PM VP CLINICAL David GÓMEZ PATHOLOGY/CYTOLOGY ORDERABLE S Final Result [facility] [address] [place] [address], * Cytopath Cerv/Vag Thin Layer (04/21/2021 8:03 AM VP CLINICAL) THIN PREP PAP [facility] [address] [place] [address] Department of Pathology Pathology Report CERVICAL/VAGINAL PAP SMEAR REPORT Name: ROSANNE SIDHU Age: 2 1965 (Age: 55) Location: [facility] Sex: F Collected Date: 04/21/2021 [facility] #: [id number] Date Received: 04/23/2021 Date Reported: 04/28/2021 Provider: [...] is not effective in detecting cervical adenocarcinoma. [facility] 04/21/2021 8:03 AM VP CLINICAL 04/23/2021 8:03 AM VP CLINICAL Comment:CERVICAL/ENDOCERVICA L us David GÓMEZ PATHOLOGY/CYTOLOGY ORDERABLE S Final Result [facility] [address] [place] [address], from Last 3 Months or Most Recently Relevant to Health Maintenance Insurance [facility] Care Teams Hospital Supervisor Relationship Specialty [place] [address] [place] [address] PCP - General PHYSICIAN FINANCIAL ANALYST INTERN 04/08/21
--- OUTSIDE RECORDS SUMMARY | 2024-05-19 17:22 | XMS_ITS | Encounter Summary ---
Author Organization [facility] Address [address] [place] [address] Care Team Providers Care Structural Worker Name Role Phone Linda Euceda Primary Care Provider [phone] Encounter Details Date Type Department Care Team (Late st Contact Info) Description 05/20/2021 [employer] Message Enc [facility] Family & Internal Medicine [facility] [id number] [place] [phone] [place] [address] [place] [address] 05/26/21 Appointment Social History Tobacco [...] on file Legal Sex Female 5:38 PM INSPECTOR BALANCE BRIDGE Gender Identity Not on file Sexual Orientation Not on file COVID-19 Exposure Response Date Recorded In the last 10 days, have yo u been in contact with someone who was confirmed or suspected to have Coronavirus/COVID-19? No / Unsure 04/21/2021 3:52 PM INSPECTOR BALANCE BRIDGE documented as of this encounter Plan of Treatment Not on file documented as of this encounter Visit Diagnoses Not on filedocumented in this encounter Additional Health Concerns Assessment Noted Time PHQ-9 Depression Total Score: 8 04/21/19 22 4:17 PM INSPECTOR BALANCE BRIDGE documented as of this encounter Care Teams Structural Worker Relationship Specialty [place] [address] [place] [address] PCP - General PHYSICIAN CAR GREASER 04/08/21 documented as of this encounter
--- OUTSIDE RECORDS SUMMARY | 2024-05-19 17:22 | XMS_ITS | Encounter Summary ---
Author Organization [facility] Healthcare Address [address] [place] [address] Care Team Providers Care Machinery Engineer Name Role Phone Cheikh Ackerman MD Primary Care Prov ider Pepe Nicole MD Unavailable [phone] Francisco Javier Uriostegui MD Unavailable Encounter Details Date Type Department Care Team (Latest Contact Info) Description 05/18/2024 1:40 PM PARKING REGULATION ENFORCEMENT OFFICER - 05/18/2024 11:59 PM PARKING REGULATION ENFORCEMENT OFFICER Hospital Encounter [address] [address] Bilateral knee swelling; Chronic pain of both [...] on file Legal Sex Female 11:58 PM PARKING REGULATION ENFORCEMENT OFFICER Gender Identity Female 04/03/2018 2:53 PM PARKING REGULATION ENFORCEMENT OFFICER Sexual Orientation Not on file documented as [...] as directed 200 3 11/06/2007 blood-glucose sensor ([email or web address] G7 Sensor) device CHANGE SENSOR EVERY 10 [...] with long-term current use of insulin ([facility]) USE WITH INSULIN PUMP, MAXIMUM DAILY DOSE IS 120 UNITS 110 mL 2 01/05/2024 insulin glargine (LANTUS) 100 unit/mL (3 mL) pen for injection Inject 54 units. 1 times per day when off pump TDD 54 units. 15 mL 1 04/27/2023 insulin lispro (HumaLOG) 100 unit/mL vial for injectionIndicat ions:Type 2 diabetes mellitus without complication, with long-term current use of insulin ([facility]) Use the insulin for insulin pump max [...] pain of both knees 05/18/2024 1:40 PM PARKING REGULATION ENFORCEMENT OFFICER Scheduled Orders Name Type Priority Associated Diagnoses Orde r Schedule Crystal Analysis, Body Fluid Lab Routine Bilateral knee swelling Chronic pain of both knees Once for 1 Occurrences starting 05/18/2024 until 05/18/2024 documented as of this encounter Visit Diagnoses Diagnosis Bilateral knee swelling Chronic pain of both knees documented in this encounter Care Teams Machinery Engineer Relationship Specialty Start Date End Date Cheikh Ackerman MD [address] [place] [address] PCP - General 06/11/16 Pepe Nicole MD [address] [facility] [address] [place] [address] Referring Physician Nephrology 04/24/20 Francisco Javier Uriostegui MD [address] [facility] [address] [place] [address] Consulting Physician Cardiology 11/22/22 documented as of this encounter
--- OUTSIDE RECORDS SUMMARY | 2024-05-19 17:22 | XMS_ITS | Encounter Summary ---
Author Organization [facility] Facility Care Team Providers Care Damascener Name Role Phone Cheikh Ackerman MD Primary Care Prov ider Cheikh Ackerman MD Primary Care Prov ider Cheikh Ackerman MD Primary Care Prov ider Pepe Nicole MD Unavailable [phone] Francisco Javier Uriostegui MD Unavailable Encounter Details Date Type Department Care Team (Latest Contact Info) Description 02/11/2016 Orders Only [facility] CLINCONV ProviderYohan MD [address] [place] [address] Social History Tobacco Use Types Packs/Day Years Used Date Smoking Tobacco: Never Assessed Comments Unknown Sex and Gender Information Value Date Recorded Sex Assigned at Not on file Legal Sex Female 11:58 PM PALEONTOLOGY TEACHER Gender Identity Female 04/03/2018 2:53 PM PALEONTOLOGY TEACHER Sexual Orientation Not on file documented as of this encounter Plan of Treatment Not on file documented as of this encounter Procedures Procedure Name Priority Date/Time Associated Diagnosis Comments PROCEDURE - RESULT 02/11/2016 12 :00 AM PALEONTOLOGY TEACHER documented in this encounter Results * PROCEDURE - RESULT (02/11/2016 12:00 AM PALEONTOLOGY TEACHER) Narrative 02/11/2016 12:00 AM PALEONTOLOGY TEACHER Ordered by an unspecified provider. us Historical Provider Final Res ult documented in this encounter Visit Diagnoses Not on filedocumented in this encounter Care Teams Damascener Relationship Specialty Start Date End Date Cheikh Ackerman MD [address] [place] [address] PCP - General 06/11/16 Cheikh Ackerman MD [address] [place] [address] PCP - General 05/04/16 06/10/16 Cheikh Ackerman MD [address] [place] [address] PCP - General 04/25/06 05/03/16 Pepe Nicole MD [address] [place] [address] Referring Physician Nephrology 04/24/20 Francisco Javier Uriostegui MD [address] [facility] [address] [place] [address] Consulting Physician Cardiology 11/22/22 documented as of this encounter
--- OUTSIDE RECORDS SUMMARY | 2024-05-19 17:22 | XMS_ITS | Clinical Summary ---
Author Organization [facility] Address [address] [place] [address] Care Team Providers Care Manager Portable Name Role Phone Cheikh Ackerman MD Primary Care Prov ider Pepe Nicole MD Unavailable [phone] Francisco Javier Uriostegui MD Unavailable Allergies [...] 90 tablet 05/10/19 25 Active blood-glucose sensor ([employer] G7 Sensor) device Will use 3 sensors [...] insulin 10/25/2023 ILD (interstitial lung disease) 10/05/2023 lithopress operator associated with adverse incidents 08/05/2023 BOOP (bronchiolitis [...] on prednisone - advised to contact her perennial house manager to discuss her blood pressure and [...] Department Care Team Description 05/18/2024 1:40 PM TRUCK DRIVER TEAMSTER - 05/18/2024 11:59 PM TRUCK DRIVER TEAMSTER Hospital Encounter [address] [address] Bilateral knee swelling; Chronic pain of both knees Discharge Disposition: Discharge to home or self care 05/18/2024 1:00 PM TRUCK DRIVER TEAMSTER Office Visit [facility] Medical [facility] Sports Medicine and Primary Care at [address] [place] [phone] Ash Godwin DO Bilateral knee swelling (Primary Dx); Chronic pain of both knees 05/14/2024 9:00 AM TRUCK DRIVER TEAMSTER Office Visit [facility] Sports Medicine and Primary Care at [address] [place] [phone] Ash Godwin DO Primary osteoarthritis of both knees (Primary Dx) 05/03/2024 Telephone [facility] Rheumatology [address] [place] [address] [address] [place] [address] Crissy Mcadams NP 05/01/2024 1:30 PM TRUCK DRIVER TEAMSTER Office Visit [facility] Rheumatology [address] [place] [address] [address] [place] [phone] Crissy Mcadams NP Polymyalgia rheumatica syndrome (Primary Dx); termite exterminator helper (current) use of systemic steroids 04/20/2024 Telephone [facility] Nephrology [address] [facility] 5th [place] [address] [place] [address] Aspen Zapata 03/20/2024 1:00 PM TRUCK DRIVER TEAMSTER Office Visit [facility] Nephrology [address] [facility] Advanced [facility] 5th [place] [address] [place] [address] CKD (chronic kidney disease) stage 4, GFR 15-29 ml/min (HCC) (Primary Dx); Essential hypertension; Proteinuria, unspecified type; Anemia in stage 4 chronic kidney disease (HCC); Renal osteodystrophy 03/12/2024 3:31 PM TRUCK DRIVER TEAMSTER - 03/12/2024 11:59 PM TRUCK DRIVER TEAMSTER Hospital Encounter [address] [address] CKD (chronic kidney disease) stage 4, GFR 15-29 ml/min (HCC); Vitamin D deficiency; Proteinuria, unspecified type Discharge Disposition: Discharge to home or self care 03/12/2024 12:30 PM TRUCK DRIVER TEAMSTER Ancillary Procedure [facility] Medical [facility] Imaging at [address] [phone] termite exterminator helper (current) use of systemic steroids 03/12/2024 12:15 PM TRUCK DRIVER TEAMSTER Ancillary Procedure [facility] Medical [facility] Imaging at [address] [phone] termite exterminator helper (current) use of systemic steroids 03/12/2024 11:24 AM TRUCK DRIVER TEAMSTER - 03/12/2024 11:59 PM TRUCK DRIVER TEAMSTER Hospital Encounter [address] [address] termite exterminator helper (current) use of systemic steroids Discharge Disposition: Discharge to home or self care 03/12/2024 11:15 AM TRUCK DRIVER TEAMSTER Lab [facility] Outpatient Lab at [address] [address] Mixed hyperlipidemia (Primary Dx); Type 2 diabetes [...] on file Legal Sex Female 11:58 PM TRUCK DRIVER TEAMSTER Gender Identity Female 04/03/2018 2:53 PM TRUCK DRIVER TEAMSTER Sexual Orientation Not on file Obstetrics History Last Filed Vital Signs Vital Sign Reading Time Taken Comments Blood Pressure 117/70 05/18/2024 1:18 PM TRUCK DRIVER TEAMSTER Pulse 93 05/18/2024 1:18 PM TRUCK DRIVER TEAMSTER Temperature 36.6 C (97.8 F) 05/01/2024 1:26 PM TRUCK DRIVER TEAMSTER Respiratory Rate 20 10/05/2023 10:52 AM CDT Oxygen Saturation 97% 05/01/2024 1:26 PM TRUCK DRIVER TEAMSTER Inhaled Oxygen Concentration - - Weight 85.7 kg (189 lb) 05/18/2024 1:18 PM TRUCK DRIVER TEAMSTER Height 165.1 cm (5' 5 ) 05/18/2024 1:18 PM TRUCK DRIVER TEAMSTER Body Mass Index 31.45 05/18/2024 1:18 PM TRUCK DRIVER TEAMSTER Plan of Treatment Health Maintenance Due Date [...] Procedure Name Priority Date/Time Associated Diagnosis Comments RI ARTHROCENTESIS ASPIR&/INJ MAJOR JT/BURSA W/US Routine 05/18/2024 1:00 PM TRUCK DRIVER TEAMSTER Bilateral knee swelling Chronic pain of both knees XR KNEE RIGHT 3 VIEWS Schedule Routine, Read Routine (OP Routine) 03/12/2024 11:34 AM TRUCK DRIVER TEAMSTER skilled nursing (current) use of systemic steroids XR KNEE LEFT 3 VIEWS Schedule Routine, Read Routine (OP Routine) 03/12/2024 11:34 AM TRUCK DRIVER TEAMSTER skilled nursing (current) use of systemic steroids EGFR Routine 03/12/2024 11:25 AM TRUCK DRIVER TEAMSTER CKD (chronic kidney disease) stage 4, GFR 15-29 ml/min (HCC) Vitamin D deficiency Proteinuria, unspecified type RENAL FUNCTION PANEL Routine 03/12/2024 11:25 AM TRUCK DRIVER TEAMSTER CKD (chronic kidney disease) stage 4, GFR 15-29 ml/min (HCC) Vitamin D deficiency Proteinuria, unspecified type VITAMIN D 25 HYDROXY Routine 03/12/2024 11:25 AM TRUCK DRIVER TEAMSTER CKD (chronic kidney disease) stage 4, GFR 15-29 ml/min ([facility]) Vitamin D deficiency Proteinuria, unspecified type PROTEIN / CREATININE RATIO, URINE, RANDOM Routine 03/12/2024 11:25 AM TRUCK DRIVER TEAMSTER CKD (chronic kidney disease) stage 4, GFR 15-29 ml/min (HCC) Vitamin D deficiency Proteinuria, unspecified type CRP (ACUTE PHASE) Routine 03/12/2024 11: 25 AM TRUCK DRIVER TEAMSTER termite exterminator helper (current) use of systemic steroids ERYTHROCYTE SEDIMENTATION RATE Routine 03/12/2024 11:25 AM TRUCK DRIVER TEAMSTER skilled nursing (current) use of systemic steroids IRON PROFILE W/ IBC Routine 03/12/2024 1 1:25 AM TRUCK DRIVER TEAMSTER termite exterminator helper (current) use of systemic steroids VITAMIN B12 Routine 03/12/2024 11:25 AM TRUCK DRIVER TEAMSTER skilled nursing (current) use of systemic steroids POCT HEMOGLOBIN A1C Routine 10/25/2023 9 :17 AM CDT Type 2 diabetes mellitus without complication, with long-term current use of insulin ([facility]) POCT LIPID PANEL Routine 08/10/2023 2:56 PM CDT Lipid screening from Last 3 Months or Most Recently Relevant to Health Maintenance Results * RI ARTHROCENTESIS ASPIR&/INJ MAJOR JT/BURSA W/US (05/18/2024 1:00 PM TRUCK DRIVER TEAMSTER) Narrative Ash Godwin DO - 05/18/2024 1:00 PM TRUCK DRIVER TEAMSTER Ash Godwin DO 05/18/2024 1:44 PM Large [...] knee right 3 views (03/12/2024 11:34 AM TRUCK DRIVER TEAMSTER) Anatomical Region Laterality Modality Lower Extremities, Knee Right Digital Radiography 03/12/2024 7:48 PM TRUCK DRIVER TEAMSTER Narrative 03/12/2024 7:49 PM TRUCK DRIVER TEAMSTER EXAM DESCRIPTION: XR KNEE LEFT 3 VIEWS; [...] by Ash Rubio M.D. T: Report ID: [id number] Reading Location: [id number] Procedure Note Ash Rubio MD - 03/12/2024 [...] by Ash Rubio M.D. T: Report ID: [id number] Reading Location: [id number] Crissy Mcadams RECRUITER IMG XR PROCEDURES Final Result * X-ray knee left 3 views (03/12/2024 11:34 AM TRUCK DRIVER TEAMSTER) Anatomical Region Laterality Modality Lower Extremities, Knee Left Digital Radiography 03/12/2024 7:48 PM TRUCK DRIVER TEAMSTER Narrative 03/12/2024 7:49 PM TRUCK DRIVER TEAMSTER EXAM DESCRIPTION: XR KNEE LEFT 3 VIEWS; [...] by Ash Rubio M.D. T: Report ID: [id number] Reading Location: [id number] Procedure Note Ash Rubio MD - 03/12/2024 [...] by Ash Rubio M.D. T: Report ID: [id number] Reading Location: [place] [address] Crissy Mcadams RECRUITER IMG XR PROCEDURES Final Result * (ABNORMAL) eGFR (03/12/2024 11:25 AM TRUCK DRIVER TEAMSTER) eGFR 35(L) >=60 mL/min/1. 73 m2 Comment: [...] reviewed 2021. Blood 03/12/2024 11:2 5 AM TRUCK DRIVER TEAMSTER 03/12/2024 8:18 PM TRUCK DRIVER TEAMSTER us Brittnee Blackwell MD LAB BLOOD ORDERABLES Fi nal Result Performing Organization Address City/[facility] Co de Phone Number [facility] [address] [facility] [place] [address] * (ABNORMAL) Iron profile w/ IBC (03/12/2024 11:25 AM TRUCK DRIVER TEAMSTER) [facility] Iron 37 35 - 145 mcg/dl TIBC 200(L) 250 - 400 mcg/dL [facility] Transferrin saturation 19(L) 20 - 50 % [facility] Blood 03/12/2024 11:2 5 AM TRUCK DRIVER TEAMSTER 03/12/2024 8:18 PM TRUCK DRIVER TEAMSTER Crissy Mcadams NP LAB BLOOD ORDERABLES Fi nal Result Performing Organization Address [facility] Co de Phone Number [facility] [address] [facility] [address] [place], [place] [id number] * (ABNORMAL) Protein / creatinine ratio, urine, random (03/12/2024 11:25 AM TRUCK DRIVER TEAMSTER) [facility] Protein, ur, quant 196.5 mg/dL Comment: Interpretive Data No reference range established. Current interpretive data was last revised 2018. Creatinine Ur 164.2 mg/dL [facility] Comment: Interpretive Data No reference range established. Current interpretive data was last revised 2018. Protein/creatinin e ratio 1,196.7(H ) 0.0 - 180.0 mg/g CR [facility] Urine 03/12/2024 11:2 5 AM TRUCK DRIVER TEAMSTER 03/12/2024 8:38 PM TRUCK DRIVER TEAMSTER Brittnee Blackwell MD LAB URINE ORDERABLES Fi nal Result Performing Organization Address [facility] Co de Phone Number [facility] [address] [facility] [place] [address] * (ABNORMAL) Vitamin D 25 hydroxy (03/12/2024 11:25 AM TRUCK DRIVER TEAMSTER) Vitamin D 25-OH 28(L) 30 - 80 ng/mL Blood 03/12/2024 11:2 5 AM TRUCK DRIVER TEAMSTER 03/12/2024 8:18 PM TRUCK DRIVER TEAMSTER us Brittnee Blackwell MD LAB BLOOD ORDERABLES Fi nal Result Performing Organization Address [facility] Co de Phone Number [facility] [address] [facility] [place] [address] * Erythrocyte sedimentation rate (03/12/2024 11:25 AM TRUCK DRIVER TEAMSTER) Erythrocyte sedimentation rate 16 1 - 30 mm/hr Blood 03/12/2024 11:2 5 AM TRUCK DRIVER TEAMSTER 03/12/2024 8:18 PM TRUCK DRIVER TEAMSTER us Crissy Mcadams NP LAB BLOOD ORDERABLES Fi nal Result Performing Organization Address [facility] de Phone Number [facility] [address] [address] [facility] [place] [address] * (ABNORMAL) CRP (acute phase) (03/12/2024 11:25 AM TRUCK DRIVER TEAMSTER) CRP 18.4(H) <=10.0 mg/L Blood 03/12/2024 11:2 5 AM TRUCK DRIVER TEAMSTER 03/12/2024 8:18 PM TRUCK DRIVER TEAMSTER us Crissy Mcadams NP LAB BLOOD ORDERABLES Fi nal Result Performing Organization Address [facility] de Phone Number [facility]ICE [address] [facility] [place] [address] * Vitamin B12 (03/12/2024 11:25 AM TRUCK DRIVER TEAMSTER) Vitamin B12 545 230 - 1,250 pg/mL Blood 03/12/2024 11:2 5 AM TRUCK DRIVER TEAMSTER 03/12/2024 8:18 PM TRUCK DRIVER TEAMSTER us Crissy Mcadams RECRUITER LAB BLOOD ORDERABLES Fi nal Result [facility] [place] [address] [place] [address] * (ABNORMAL) Renal function panel (03/12/2024 11:25 AM TRUCK DRIVER TEAMSTER) Sodium 144 135 - 145 mmol/L Potassium, [...] g/dL CERNER Blood 03/12/2024 11:2 5 AM TRUCK DRIVER TEAMSTER 03/12/2024 8:18 PM TRUCK DRIVER TEAMSTER Brittnee Blackwell MD LAB BLOOD ORDERABLES Fi nal Result [facility] [place] [address] [place] [address] * POCT hemoglobin A1c (10/25/2023 9:17 AM [...] Most Recently Relevant to Health Maintenance Insurance [employer] ACCESS CHOICE Care Teams Manager Portable Relationship Specialty Start Date End Date Cheikh Ackerman MD [address] [place] [address] PCP - General 06/11/16 [place] [address] [place] [address] [place] [address] Referring Physician Nephrology 04/24/20 Francisco Javier Uriostegui MD [address] [facility] [address] [facility] [address] [place] [address] Consulting Physician Cardiology 11/22/22
--- OUTSIDE RECORDS SUMMARY | 2024-05-19 17:22 | XMS_ITS | Clinical Summary ---
Author Organization [facility] Address [address] [place] [address] Care Team Providers Care Senior Mechanical Designer Name Role Phone Vanessa Cardoso MD Primary Care Provider [phone] Source Comments [facility],non-owned Affiliates and Associated Physician Practices is amultiple site organization consisting of ambulatory clinics and hospital sitesin [place], [place], [place] and [place]. This disclosure is being madepursuant to the Care Everywhere program and may not contain all information available regarding this patient. Last updated 17.[facility] [place] Social History Tobacco Use Types Packs/Day Years [...] age to complete this topic Care Teams Senior Mechanical Designer Relationship Specialty Start Date End Date Vanessa Cardoso MD [address] [place] [id number] PCP - General 01/09/21
--- OUTSIDE RECORDS SUMMARY | 2024-05-19 17:22 | XMS_ITS | Encounter Summary ---
Author Organization [facility] Medical Group Address [address] [address] Care Team Providers Care Cigar Patcher Name Role Phone Cheikh Ackerman MD Primary Care Prov ider Cheikh Ackerman MD Primary Care Prov ider Cheikh Ackerman MD Primary Care Prov ider Pepe Nicole MD Unavailable [phone] Francisco Javier Uriostegui MD Unavailable Encounter Details Date Type Department Care Team (Late st Contact Info) Description 10/08/2015 Orders Only [facility] Provider, MD Yohan [address] [place] [address] Social History Tobacco Use Types Packs/Day Years Used Date Smoking Tobacco: Never Assessed Comments Unknown Sex and Gender Information Value Date Recorded Sex Assigned at Not on file Legal Sex Female 11:58 PM SVP RESEARCH & EBUSINESS OPERATIONS Gender Identity Female 04/03/2018 2:53 PM SVP RESEARCH & EBUSINESS OPERATIONS Sexual Orientation Not on file documented as [...] on filedocumented in this encounter Care Teams Cigar Patcher Relationship Specialty Start Date End Date Cheikh Ackerman MD [address] [place] [address] PCP - General 06/11/16 Chekih Ackerman MD [address] [place] [address] PCP - General 05/04/16 06/10/16 Cheikh Ackerman MD [address] [place] [address] PCP - General 04/25/06 05/03/16 [place] [address] [place] [address] [address] [place] [address] Referring Physician Nephrology 04/24/20 Francisco Javier Uriostegui MD [address] [facility] [address] [facility] [address] [place] [address] Consulting Physician Cardiology 11/22/22 documented as of this encounter
--- OUTSIDE RECORDS SUMMARY | 2024-05-19 17:22 | XMS_ITS | Encounter Summary ---
Author Organization [facility] Address [address] [place] [address] Phone Care Team Providers Care Machine Driller Name Role Phone Cheikh Ackerman MD Primary Care Prov ider Pepe Nicole MD Unavailable [phone] Francisco Javier Uriostegui MD Unavailable Encounter [...] on file Legal Sex Female 11:58 PM COMPUTER SYSTEMS TECHNICIAN Gender Identity Female 04/03/2018 2:53 PM COMPUTER SYSTEMS TECHNICIAN Sexual Orientation Not on file documented [...] on filedocumented in this encounter Care Teams Machine Driller Relationship Specialty Start Date End Date Cheikh Ackerman MD [address] [place] [address] PCP - General 06/11/16 Pepe Nicole MD [address] [place] [address] Referring Physician Nephrology 04/24/20 Francisco Javier Uriostegui MD [address] [facility] [address] [place] [address] Consulting Physician Cardiology 11/22/22 documented as of this encounter
--- OUTSIDE RECORDS SUMMARY | 2024-05-19 17:22 | XMS_ITS | Encounter Summary ---
Author Organization [facility] Address [address] [place] [address] Phone Care Team Providers Care Public Health Policy Analyst Name Role Phone Cheikh Ackerman MD Primary Care Prov ider Pepe Nicole MD Unavailable [phone] Francisco Javier Uriostegui MD Unavailable Encounter [...] on file Legal Sex Female 11:58 PM PUBLIC RELATIONS WRITER Gender Identity Female 04/03/2018 2:53 PM PUBLIC RELATIONS WRITER Sexual Orientation Not on file documented as [...] on filedocumented in this encounter Care Teams Public Health Policy Analyst Relationship Specialty Start Date End Date Cheikh Ackerman MD [address] [place] [address] PCP - General 06/11/16 Pepe Nicole MD [address] [place] [address] Referring Physician Nephrology 04/24/20 Francisco Javier Uriostegui MD [address] [place] [address] Consulting Physician Cardiology 11/22/22 documented as of this encounter
--- OUTSIDE RECORDS SUMMARY | 2024-05-19 17:22 | XMS_ITS | Referral Summary ---
Author Organization [facility] Address [address] [place] [address] Care Team Providers Care Day Care Attendant Name Role Phone Vanessa Cardoso MD Primary Care Provider [phone] [facility],non-owned Affiliates and Associated Physician Practices is amultiple site organization consisting of ambulatory clinics and hospital sitesin [place], [place], [place] and [place]. This disclosure is being madepursuant to the Care Everywhere program and may not contain all information available regarding this patient. Last updated 17.[facility] App[facility]ions Social History Tobacco Use Types Packs/Day Years Used Date Smoking Tobacco: Never Assessed Sex and Gender Information Value Date Recorded Sex Assigned at Not on file Gender Identity Not on file Sexual Orientation Not on file Plan of Treatment Not on file Care Teams Day Care Attendant Relationship Specialty Start Date End Date Vanessa Cardoso MD [address] [place] [address] PCP - General 01/09/21
--- OUTSIDE RECORDS SUMMARY | 2024-05-19 17:22 | XMS_ITS | Referral Summary ---
Author Organization [facility] Address [address] [place] [address] Care Team Providers Care Tapping Machine Operator Name Role Phone Cheikh Ackerman MD Primary Care Prov ider Pepe Nicole MD Unavailable [phone] Francisco Javier Uriostegui MD Unavailable Encounters Date Type Department Care Team Description 05/18/2024 1:40 PM OUTSOLE SCHEDULER - 05/18/2024 11:59 PM OUTSOLE SCHEDULER Hospital Encounter [address] [address] Bilateral knee swelling; Chronic pain of both knees Discharge Disposition: Discharge to home or self care 05/18/2024 1:00 PM OUTSOLE SCHEDULER Office Visit [facility] Medical Group Sports Medicine and Primary Care at [address] [phone] Ash Godwin DO Bilateral knee swelling (Primary Dx); Chronic pain of both knees 05/14/2024 9:00 AM OUTSOLE SCHEDULER Office Visit [facility] Medical Group Sports Medicine and Primary Care at [address] [phone] Ash Godwin DO Primary osteoarthritis of both knees (Primary Dx) 05/03/[address] Medical Office Building [address] [place] [address] Crissy Mcadams NP 05/01/2024 1:30 PM OUTSOLE SCHEDULER Office Visit [facility] Rheumatology [address] [facility] Medical Office Building [address] [place] [address] Crissy Mcadams NP Polymyalgia rheumatica syndrome (Primary Dx); rate quoting operator (current) use of systemic steroids 04/20/2024 Telephone [facility] Nephrology [address] [facility] 5[address] [place] [address] [place] [address] Aspen Zapata 03/20/2024 1:00 PM OUTSOLE SCHEDULER Office Visit [facility] Nephrology [facility] [facility] [address] [place] [address] [place] [phone] CKD (chronic kidney disease) stage 4, GFR 15-29 ml/min (HCC) (Primary Dx); Essential hypertension; Proteinuria, unspecified type; Anemia in stage 4 chronic kidney disease (HCC); Renal osteodystrophy 03/12/2024 3:31 PM OUTSOLE SCHEDULER - 03/12/2024 11:59 PM OUTSOLE SCHEDULER Hospital Encounter [address] [address] CKD (chronic kidney disease) stage 4, GFR 15-29 ml/min (HCC); Vitamin D deficiency; Proteinuria, unspecified type Discharge Disposition: Discharge to home or self care 03/12/2024 11:24 AM OUTSOLE SCHEDULER - 03/12/2024 11:59 PM OUTSOLE SCHEDULER Hospital Encounter [address] [address] rate quoting operator (current) use of systemic steroids Discharge Disposition: Discharge to home or self care 03/12/2024 12:30 PM OUTSOLE SCHEDULER Ancillary Procedure [facility] Medical Group Imaging at [address] [address] [facility] (current) use of systemic steroids 03/12/2024 12:15 PM OUTSOLE SCHEDULER Ancillary Procedure [facility] Medical Group Imaging at [address] [address] rate quoting operator (current) use of systemic steroids 03/12/2024 11:15 AM OUTSOLE SCHEDULER Lab [facility] Medical Group Outpatient Lab at [address] [address] Mixed hyperlipidemia (Primary Dx); Type [...] 04/27/19 24 Active pen needle, diabetic (BD Ivcki 2nd Gen Pen Needle) 32 gauge x [...] complication, with long-term current use of insulin ([facility]) USE WITH INSULIN PUMP, MAXIMUM DAILY DOSE IS 120 UNITS 110 mL 2 01/05/20 24 Active insulin lispro (HumaLOG) 100 unit/mL vial for injectionIndic ations:Type 2 diabetes mellitus without complication, with long-term current use of insulin ([facility]) Use the insulin for insulin pump max [...] insulin 10/25/2023 ILD (interstitial lung disease) 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 08/05/2023 BOOP (bronchiolitis [...] on prednisone - advised to contact her sales operations assistant to discuss her blood pressure and edema [...] on file Legal Sex Female 11:58 PM OUTSOLE SCHEDULER Gender Identity Female 04/03/2018 2:53 PM OUTSOLE SCHEDULER Sexual Orientation Not on file Last Filed Vital Signs Vital Sign Reading Time Taken Comments Blood Pressure 117/70 05/18/2024 1:18 PM OUTSOLE SCHEDULER Pulse 93 05/18/2024 1:18 PM OUTSOLE SCHEDULER Temperature 36.6 C (97.8 F) 05/01/2024 1:26 PM OUTSOLE SCHEDULER Respiratory Rate 20 10/05/2023 10:52 AM CDT Oxygen Saturation 97% 05/01/2024 1:26 PM OUTSOLE SCHEDULER Inhaled Oxygen Concentration - - Weight 85.7 kg (189 lb) 05/18/2024 1:18 PM OUTSOLE SCHEDULER Height 165.1 cm (5' 5 ) 05/18/2024 1:18 PM OUTSOLE SCHEDULER Body Mass Index 31.45 05/18/2024 1:18 PM OUTSOLE SCHEDULER Plan of Treatment Not on file Procedures Procedure Name Priority Date/Time Associated Diagnosis Comments OR ARTHROCENTESIS ASPIR&/INJ MAJOR JT/BURSA W/US Routine 05/18/2024 1:00 PM OUTSOLE SCHEDULER Bilateral knee swelling Chronic pain of both knees XR KNEE RIGHT 3 VIEWS Schedule Routine, Read Routine (OP Routine) 03/12/2024 11:34 AM OUTSOLE SCHEDULER [facility] (current) use of systemic steroids XR KNEE LEFT 3 VIEWS Schedule Routine, Read Routine (OP Routine) 03/12/2024 11:34 AM OUTSOLE SCHEDULER rate quoting operator (current) use of systemic steroids EGFR Routine 03/12/2024 11:25 AM OUTSOLE SCHEDULER CKD (chronic kidney disease) stage 4, GFR 15-29 ml/min ([facility]) Vitamin D deficiency Proteinuria, unspecified type RENAL FUNCTION PANEL Routine 03/12/2024 11:25 AM OUTSOLE SCHEDULER CKD (chronic kidney disease) stage 4, GFR 15-29 ml/min (HCC) Vitamin D deficiency Proteinuria, unspecified type VITAMIN D 25 HYDROXY Routine 03/12/2024 11:25 AM OUTSOLE SCHEDULER CKD (chronic kidney disease) stage 4, GFR 15-29 ml/min (HCC) Vitamin D deficiency Proteinuria, unspecified type PROTEIN / CREATININE RATIO, URINE, RANDOM Routine 03/12/2024 11:25 AM OUTSOLE SCHEDULER CKD (chronic kidney disease) stage 4, GFR 15-29 ml/min (HCC) Vitamin D deficiency Proteinuria, unspecified type CRP (ACUTE PHASE) Routine 03/12/2024 11: 25 AM OUTSOLE SCHEDULER [facility] (current) use of systemic steroids ERYTHROCYTE SEDIMENTATION RATE Routine 03/12/2024 11:25 AM OUTSOLE SCHEDULER [facility] (current) use of systemic steroids IRON PROFILE W/ IBC Routine 03/12/2024 1 1:25 AM OUTSOLE SCHEDULER rate quoting operator (current) use of systemic steroids VITAMIN B12 Routine 03/12/2024 11:25 AM OUTSOLE SCHEDULER [facility] (current) use of systemic steroids POCT HEMOGLOBIN A1C Routine 10/25/2023 9 :17 AM CDT Type 2 diabetes mellitus without complication, with long-term current use of insulin ([facility]) POCT LIPID PANEL Routine 08/10/2023 2:56 PM CDT Lipid screening from Last 3 Months or Most Recently Relevant to Health Maintenance Results * OR ARTHROCENTESIS ASPIR&/INJ MAJOR JT/BURSA W/US (05/18/2024 1:00 PM OUTSOLE SCHEDULER) Narrative Ash Godwin DO - 05/18/2024 1:00 PM OUTSOLE SCHEDULER Ash Godwin DO 05/18/2024 1:44 PM Large [...] mg methylPREDNISolone acetate 80 mg/mL us Ash Gdowin DO IN CLINIC/BEDSIDE [facility] Final Result * X-ray knee right 3 views (03/12/2024 11:34 AM OUTSOLE SCHEDULER) Anatomical Region Laterality Modality Lower Extremities, Knee Right Digital Radiography 03/12/2024 7:48 PM OUTSOLE SCHEDULER Narrative 03/12/2024 7:49 PM OUTSOLE SCHEDULER EXAM DESCRIPTION: XR KNEE LEFT 3 VIEWS; [...] by Ash Rubio M.D. T: Report ID: [id number] Reading Location: [place] [address] Procedure Note Ash Rubio MD - 03/12/2024 [...] by Ash Rubio M.D. T: Report ID: [id number] Reading Location: [place] [address] Crissy Mcadams MARKETING BUDGET ANALYST IMG XR PROCEDURES Final Result * X-ray knee left 3 views (03/12/2024 11:34 AM OUTSOLE SCHEDULER) Anatomical Region Laterality Modality Lower Extremities, Knee Left Digital Radiography 03/12/2024 7:48 PM OUTSOLE SCHEDULER Narrative 03/12/2024 7:49 PM OUTSOLE SCHEDULER EXAM DESCRIPTION: XR KNEE LEFT 3 VIEWS; [...] by Ash Rubio M.D. T: Report ID: [id number] Reading Location: [place] [address] Procedure Note Ash Rubio MD - 03/12/2024 [...] by Ash Rubio M.D. T: Report ID: [id number] Reading Location: [id number] Crissy Mcadams MARKETING BUDGET ANALYST IMG XR PROCEDURES Final Result * (ABNORMAL) eGFR (03/12/2024 11:25 AM OUTSOLE SCHEDULER) eGFR 35(L) >=60 mL/min/1. 73 m2 Comment: [...] reviewed 2021. Blood 03/12/2024 11:2 5 AM OUTSOLE SCHEDULER 03/12/2024 8:18 PM OUTSOLE SCHEDULER Brittnee Blackwell MD LAB BLOOD ORDERABLES Fi nal Result Performing Organization Address [facility] Co de Phone Number ALICE [address] [address] [place] [address] * (ABNORMAL) Iron profile w/ IBC (03/12/2024 11:25 AM OUTSOLE SCHEDULER) [facility] Iron 37 35 - 145 mcg/dl TIBC 200(L) 250 - 400 mcg/dL [facility] Transferrin saturation 19(L) 20 - 50 % [facility] Blood 03/12/2024 11:2 5 AM OUTSOLE SCHEDULER 03/12/2024 8:18 PM OUTSOLE SCHEDULER Crissy Mcadams NP LAB BLOOD ORDERABLES Fi nal Result Performing Organization Address [facility] de Phone Number [facility] [address] [address] [place] [address] * (ABNORMAL) Protein / creatinine ratio, urine, random (03/12/2024 11:25 AM OUTSOLE SCHEDULER) [facility] Protein, ur, quant 196.5 mg/dL Comment: Interpretive Data No reference range established. Current interpretive data was last revised 2018. Creatinine Ur 164.2 mg/dL [facility] Comment: Interpretive Data No reference range established. Current interpretive data was last revised 2018. Protein/creatinin e ratio 1,196.7(H ) 0.0 - 180.0 mg/g CR [facility] Urine 03/12/2024 11:2 5 AM OUTSOLE SCHEDULER 03/12/2024 8:38 PM OUTSOLE SCHEDULER Brittnee Blackwell MD LAB URINE ORDERABLES Fi nal Result Performing Organization Address [facility] Co de Phone Number [facility] [address] [address] [place] [address] * (ABNORMAL) Vitamin D 25 hydroxy (03/12/2024 11:25 AM OUTSOLE SCHEDULER) Vitamin D 25-OH 28(L) 30 - 80 ng/mL Blood 03/12/2024 11:2 5 AM OUTSOLE SCHEDULER 03/12/2024 8:18 PM OUTSOLE SCHEDULER Brittnee Blackwell MD LAB BLOOD ORDERABLES Fi nal Result Performing Organization Address [facility] Co de Phone Number ALICE [address] [address] [facility] [place] [employer] [address] * Erythrocyte sedimentation rate (03/12/2024 11:25 AM OUTSOLE SCHEDULER) Pathologist [facility] Erythrocyte sedimentation rate 16 1 - 30 mm/hr Blood 03/12/2024 11:2 5 AM OUTSOLE SCHEDULER 03/12/2024 8:18 PM OUTSOLE SCHEDULER Crissy Mcadams NP LAB BLOOD ORDERABLES Fi nal Result Performing Organization Address [facility] Co de Phone Number ALICE [address] [address] [facility] [place] [employer] [address] * (ABNORMAL) CRP (acute phase) (03/12/2024 11:25 AM OUTSOLE SCHEDULER) Pathologist [facility] CRP 18.4(H) <=10.0 mg/L Blood 03/12/2024 11:2 5 AM OUTSOLE SCHEDULER 03/12/2024 8:18 PM OUTSOLE SCHEDULER Crissy Mcadams MARKETING BUDGET ANALYST LAB BLOOD ORDERABLES Fi nal Result Performing Organization Address [facility] Co de Phone Number [facility] [address] [address] [facility] [place] [address] * Vitamin B12 (03/12/2024 11:25 AM OUTSOLE SCHEDULER) Pathologist [facility] Vitamin B12 545 230 - 1,250 pg/mL Blood 03/12/2024 11:2 5 AM OUTSOLE SCHEDULER 03/12/2024 8:18 PM OUTSOLE SCHEDULER Crissy Mcadams NP LAB BLOOD ORDERABLES Fi nal Result ALICE WATT [address] [address] [address] * (ABNORMAL) Renal function panel (03/12/2024 11:25 AM OUTSOLE SCHEDULER) Sodium 144 135 - 145 mmol/L Potassium, [...] g/dL [facility] Blood 03/12/2024 11:2 5 AM OUTSOLE SCHEDULER 03/12/2024 8:18 PM OUTSOLE SCHEDULER Brittnee Blackwell MD LAB BLOOD ORDERABLES Fi nal Result ALICE WATT [address] [address]rola Department [facility] [employer] [place], [place] [id number] * POCT hemoglobin A1c (10/25/2023 9:17 AM [...] Most Recently Relevant to Health Maintenance Insurance [facility] ACCESS CHOICE ANTHEM ACCESS CHOICE Care Teams Tapping Machine Operator Relationship Specialty Start Date End Date Cheikh Ackerman MD [address] [place] [address] PCP - General 06/11/16 Pepe Nicole MD [address] [place] [address] Referring Physician Nephrology 04/24/20 Francisco Javier Uriostegui MD [address] [place], [place] [address] Consulting Physician Cardiology 11/22/22
--- OUTSIDE RECORDS SUMMARY | 2024-05-19 17:22 | XMS_ITS | Patient Health Summary ---
Author Organization [facility] Address [address] [facility] [place] [address] Care Team Providers Care Business Analytics Manager Name Role Phone Vanessa Cardoso MD Primary Care Provider [phone] Note from [facility],non-owned Affiliates and Associated Physician Practices is amultiple site organization consisting of ambulatory clinics and hospital sitesin [place], [place], [place] and [place]. This disclosure is being madepursuant to the Care Everywhere program and may not contain all information available regarding this patient. Last updated 17.[facility] Social History Tobacco Use Types Packs/Day Years Used Date Smoking Tobacco: Never Assessed Sex and Gender Information Value Date Recorded Sex Assigned at Not on file Gender Identity Not on file Sexual Orientation Not on file Care Teams Business Analytics Manager Relationship Specialty Start Date End Date Vanessa Cardoso MD [address] [place] [address] PCP - General 01/09/21
--- OUTSIDE RECORDS SUMMARY | 2024-05-19 17:22 | XMS_ITS | Encounter Summary ---
Author Organization [facility] Address [facility] [place] [address] Care Team Providers Care Applications Project Manager Name Role Phone Linda Euceda Primary Care Provider [phone] Encounter Details Date Type Department Care Team (Late st Contact Info) Description 02/05/2022 Flytivity Message Enc [facility] Family & Internal Medicine [facility] [id number] [place] [phone] Angel [facility] Provider Pap smear Social History Tobacco Use [...] on file Legal Sex Female 5:38 PM AUTOMATIC TELLER MACHINE SERVICER Gender Identity Not on file Sexual Orientation Not on file documented as of this encounter Plan of Treatment Not on file documented as of this encounter Visit Diagnoses Not on filedocumented in this encounter Additional Health Concerns Assessment Noted Time PHQ-9 Depression Total Score: 8 04/21/19 22 4:17 PM AUTOMATIC TELLER MACHINE SERVICER documented as of this encounter Care Teams Applications Project Manager Relationship Specialty [place] [address] [place] [address] PCP - General PHYSICIAN TRIM MACHINE ADJUSTER 04/08/21 documented as of this encounter
--- OUTSIDE RECORDS SUMMARY | 2024-05-19 17:22 | XMS_ITS | Encounter Summary ---
Author Organization [facility] Care Team Providers Care Certified Medical Coder Name Role Phone Cheikh Ackerman MD Primary Care Prov ider Cheikh Ackerman MD Primary Care Prov ider Cheikh Ackerman MD Primary Care Prov ider Pepe Nicole MD Unavailable [phone] Francisco Javier Uriostegui MD Unavailable Encounter Details Date Type Department Care Team (Latest Contact Info) Description 02/18/2016 Orders Only [facility] ProviderYohan MD [address] [place] [address] Social History Tobacco Use Types Packs/Day Years Used Date Smoking Tobacco: Never Assessed Comments Unknown Sex and Gender Information Value Date Recorded Sex Assigned at Not on file Legal Sex Female 11:58 PM GUEST SERVICES MANAGER Gender Identity Female 04/03/2018 2:53 PM GUEST SERVICES MANAGER Sexual Orientation Not on file documented as of this encounter Plan of Treatment Not on file documented as of this encounter Procedures Procedure Name Priority Date/Time Associated Diagnosis Comments SCAN - PATHOLOGY 02/20/2016 12:0 0 AM GUEST SERVICES MANAGER SCAN - LABS 02/20/2016 12:00 AM GUEST SERVICES MANAGER SCAN - LABS 02/20/2016 12:00 AM GUEST SERVICES MANAGER SCAN - LABS 02/20/2016 12:00 AM GUEST SERVICES MANAGER SCAN - LABS 02/20/2016 12:00 AM GUEST SERVICES MANAGER documented in this encounter Results * SCAN - LABS (02/20/2016 12:00 AM GUEST SERVICES MANAGER) Narrative 02/20/2016 12:00 AM GUEST SERVICES MANAGER Ordered by an unspecified provider. Historical Provider Final Res ult * SCAN - PATHOLOGY (02/20/2016 12:00 AM GUEST SERVICES MANAGER) Narrative 02/20/2016 12:00 AM GUEST SERVICES MANAGER Ordered by an unspecified provider. [facility] Provider Final Res ult * SCAN - LABS (02/20/2016 12:00 AM GUEST SERVICES MANAGER) Narrative 02/20/2016 12:00 AM GUEST SERVICES MANAGER Ordered by an unspecified provider. [facility] Provider Final Res ult * SCAN - LABS (02/20/2016 12:00 AM GUEST SERVICES MANAGER) Narrative 02/20/2016 12:00 AM GUEST SERVICES MANAGER Ordered by an unspecified provider. [facility] Provider Final Res ult * SCAN - LABS (02/20/2016 12:00 AM GUEST SERVICES MANAGER) Narrative 02/20/2016 12:00 AM GUEST SERVICES MANAGER Ordered by an unspecified provider. [facility] Provider Final Res ult documented in this encounter Visit Diagnoses Not on filedocumented in this encounter Care Teams Certified Medical Coder Relationship Specialty Start Date End Date Cheikh Ackerman MD [address] [place] [address] PCP - General 06/11/16 Cheikh Ackerman MD [address] [place] [address] PCP - General 05/04/16 06/10/16 Cheikh Ackerman MD [address] [place] [address] PCP - General 04/25/06 05/03/16 Pepe Nicole MD [address] [place] [address] Referring Physician Nephrology 04/24/20 Francisco Javier Uriostegui MD [address] [facility] [address] [place] [address] Consulting Physician Cardiology 11/22/22 documented as of this encounter
--- OUTSIDE RECORDS SUMMARY | 2024-05-19 17:22 | XMS_ITS | Continuity of Care Document ---
Author Organization [facility] Address [address] [place] [address] utive [facility] [address] [place] [address] Phone Care Team Providers Care Recycling Attendant Name Role Phone Brooke Amador Unavailable Unavailable Procedures Procedure Date Eye Exam, New Patient Advance Directives Directive Yes / No Effective Date File Name No Information Encounters Encounter Description Practice Location Reason(s) For Visit Diagnoses Date Provider Providers Copied on Encounter [facility], [address] [place] [address] [address], [place], [place], [id number], [place] tel:[phone] [facility] No Information 8-200 8 Marjorie Cox. [address] , [address], [place], [address], [place]. tel:[phone] Family History Family Member Type Diagnosis Age At Onset No Information Payers Payer name Insurance type Covered republican ID Authoriza tion(s) No Information Social History [...]
--- OUTSIDE RECORDS SUMMARY | 2024-05-19 17:22 | XMS_ITS | Encounter Summary ---
Author Organization [facility] Facility Care Team Providers Care Streetcar Motorman Name Role Phone Cheikh Ackerman MD Primary Care Prov ider Cheikh Ackerman MD Primary Care Prov ider Cheikh Ackerman MD Primary Care Prov ider Pepe Nicole MD Unavailable [phone] Francisco Javier Uriostegui MD Unavailable Encounter Details Date Type Department Care Team (Latest Contact Info) Description 03/12/2016 Orders Only [facility] CLINCONV ProviderYohan MD [address] [place], [place] [id number] Social History Tobacco Use Types Packs/Day Years Used Date Smoking Tobacco: Never Assessed Comments Unknown Sex and Gender Information Value Date Recorded Sex Assigned at Not on file Legal Sex Female 11:58 PM CORN GRINDER Gender Identity Female 04/03/2018 2:53 PM CORN GRINDER Sexual Orientation Not on file documented as of this encounter Plan of Treatment Not on file documented as of this encounter Procedures Procedure Name Priority Date/Time Associated Diagnosis Comments SCAN - LABS 04/06/2016 12:00 AM CORN GRINDER SCAN - PATHOLOGY 03/12/2016 12:0 0 AM CORN GRINDER documented in this encounter Results * SCAN - LABS (04/06/2016 12:00 AM CORN GRINDER) Narrative 04/06/2016 12:00 AM CORN GRINDER Ordered by an unspecified provider. Historical Provider Final Res ult * SCAN - PATHOLOGY (03/12/2016 12:00 AM CORN GRINDER) Narrative 03/12/2016 12:00 AM CORN GRINDER Ordered by an unspecified provider. Historical Provider Final Res ult documented in this encounter Visit Diagnoses Not on filedocumented in this encounter Care Teams Streetcar Motorman Relationship Specialty Start Date End Date Cheikh Ackerman MD [address] [place] [address] PCP - General 06/11/16 Cheikh Ackerman MD [address] [place] [address] PCP - General 05/04/16 06/10/16 Cheikh Ackerman MD [address] [place] [address] PCP - General 04/25/06 05/03/16 Pepe Nicole MD [address] [place] [address] Referring Physician Nephrology 04/24/20 Francisco Javier Uriostegui MD [address] [place] [address] Consulting Physician Cardiology 11/22/22 documented as of this encounter
--- OUTSIDE RECORDS SUMMARY | 2024-05-19 17:22 | XMS_ITS | Encounter Summary ---
Author Organization [facility] Address [address] [place] [address] Care Team Providers Care Manager Costing Name Role Phone Cheikh Ackerman MD Primary Care Prov ider Pepe Nicole MD Unavailable [phone] Francisco Javier Uriostegui MD Unavailable Reason for Referral * Injectables (Routine) - Pending Review Specialty Diagnoses / Procedures Referred By Debi hunter Referred To Contact Diagnoses Bilateral knee swelling Chronic pain of both knees Procedures Large Joint Injection w/ Ultrasound Guidance: bilateral knee Ash Godwin DO [address] [address] Phone: tel: fax: [facility] Referral ID Status Reason Start Date Expiration Date V isits Requested Visits Authorized [id number] Pending Review 05/18/2024 06/17/2025 1 1 WORKER Reason for Visit * Reason Comments Follow-up Follow-up Encounter Details Date Type Department Care Team (Late st Contact Info) Description 05/18/2024 1:00 PM ROOM WORKER Office Visit [facility] Sports Medicine and Primary Care at [address] [place] [address] Ash Godwin DO [address] [place] [address] Bilateral knee swelling (Primary Dx); Chronic pain [...] on file Legal Sex Female 11:58 PM ROOM WORKER Gender Identity Female 04/03/2018 2:53 PM ROOM WORKER Sexual Orientation Not on file documented as of this encounter Last Filed Vital Signs Vital Sign Reading Time Taken Comments Blood Pressure 117/70 05/18/2024 1:18 PM ROOM WORKER Pulse 93 05/18/2024 1:18 PM ROOM WORKER Temperature - - Respiratory Rate - - Oxygen Saturation - - Inhaled Oxygen Concentration - - Weight 85.7 kg (189 lb) 05/18/2024 1:18 PM ROOM WORKER Height 165.1 cm (5' 5 ) 05/18/2024 1:18 PM ROOM WORKER Body Mass Index 31.45 05/18/2024 1:18 PM ROOM WORKER documented in this encounter Progress Notes * [...] before. She has been working with a television director who will be hoping for some aspiration [...] any issues or concerns. Ash Godwin DO WORKER documented in this encounter Procedure Notes * [...] %); 80 mg methylPREDNISolone acetate 80 mg/mL WORKER documented in this encounter Miscellaneous Notes * Addendum Note - Amanda [place] MA - 05/18/2024 1:00 PM CSTAddended by: AMANDA AUSTIN on: 05/18/2024 02:18 PM Modules accepted: Orders WORKER documented in this encounter Plan of Treatment Pending Results Name Type Priority Associated Diagnoses Date /Time Crystal Analysis, Body Fluid Lab Routine Bilateral knee swelling Chronic pain of both knees 05/18/2024 1:40 PM ROOM WORKER Scheduled Orders Name Type Priority Associated Diagnoses Orde r Schedule Crystal Analysis, Body Fluid Lab Routine Bilateral knee swelling Chronic pain of both knees Expected: 05/18/2024, Expires: 05/18/2025 documented as of this encounter Procedures Procedure Name Priority Date/Time Associated Diagnosis Comments RI ARTHROCENTESIS ASPIR&/INJ MAJOR JT/BURSA W/US Routine 05/18/2024 1:00 PM ROOM WORKER Bilateral knee swelling Chronic pain of both knees documented in this encounter Results * RI ARTHROCENTESIS ASPIR&/INJ MAJOR JT/BURSA W/US (05/18/2024 1:00 PM ROOM WORKER) Narrative Ash Godwin DO - 05/18/2024 1:00 PM ROOM WORKER Ash Godwin DO 05/18/2024 1:44 PM Large [...] of both knees Given 05/18/2024 1:00 PM ROOM WORKER 5 mL lidocaine (PF) (XYLOCAINE) 20 mg/mL (2 %) preservative free injection 5 mL 5 mL, One-Time Injection, Starting on Tue05/18/24 at 1300, For 1 doseIndications:Bilateral knee swelling,Chronic pain of both knees Given 05/18/2024 1:00 PM ROOM WORKER 5 mL methylPREDNISolone acetate (DEPO-medrol) injection 80 mg 80 mg, intra-articular, One-Time Injection, Starting on Tue05/18/24 at 1300, For 1 doseIndications:Bilateral knee swelling,Chronic pain of both knees Given 05/18/2024 1:00 PM ROOM WORKER 80 mg methylPREDNISolone acetate (DEPO-medrol) injection 80 mg 80 mg, intra-articular, One-Time Injection, Starting on Tue05/18/24 at 1300, For 1 doseIndications:Bilateral knee swelling,Chronic pain of both knees Given 05/18/2024 1:00 PM ROOM WORKER 80 mg documented in this encounter Care Teams Manager Costing Relationship Specialty Start Date End Date Cheikh Ackerman MD [address] [place] [address] PCP - General 06/11/16 Pepe Nicole MD [address] [place] [address] Referring Physician Nephrology 04/24/20 Francisco Javier Uriostegui MD [address] [facility] [address] [facility] [address] [place] [address] Consulting Physician Cardiology 11/22/22 documented as of this encounter
--- OUTSIDE RECORDS SUMMARY | 2024-05-19 17:22 | XMS_ITS | Encounter Summary ---
Author Organization [facility] Facility Care Team Providers Care Restaurant Lead Name Role Phone Cheikh Ackerman MD Primary Care Prov ider Cheikh Ackerman MD Primary Care Prov ider Cheikh Ackerman MD Primary Care Prov ider Pepe Nicole MD Unavailable [phone] Francisco Javier Uriostegui MD Unavailable Encounter Details Date Type Department Care Team (Latest Contact Info) Description 03/04/2016 Orders Only [facility] CLINCONV ProviderYohan MD [address] [place] [id number] Social History Tobacco Use Types Packs/Day Years Used Date Smoking Tobacco: Never Assessed Comments Unknown Sex and Gender Information Value Date Recorded Sex Assigned at Not on file Legal Sex Female 11:58 PM 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 us Historical Provider Final Res ult documented in this encounter Visit Diagnoses Not on filedocumented in this encounter Care Teams Restaurant Lead Relationship Specialty Start Date End Date Cheikh Ackerman MD [address] [place] [address] PCP - General 06/11/16 Cheikh Ackerman MD [address] [place] [address] PCP - General 05/04/16 06/10/16 Cheikh Ackerman MD [address] [place] [address] PCP - General 04/25/06 05/03/16 Pepe Nicole MD [address] [place] [address] Referring Physician Nephrology 04/24/20 Francisco Javier Uriostegui MD [address] [facility] [address] [place] [address] Consulting Physician Cardiology 11/22/22 documented as of this encounter
--- OUTSIDE RECORDS SUMMARY | 2024-05-19 17:22 | XMS_ITS | Encounter Summary ---
Author Organization [facility] Address [address] [place] [address] Phone Care Team Providers Care Hearing Examiner Name Role Phone Cheikh cAkerman MD Primary Care Prov ider Pepe Nicole MD Unavailable [phone] Francisco Javier Uriostegui MD Unavailable Encounter [...] on file Legal Sex Female 11:58 PM WHEEL WORKER Gender Identity Female 04/03/2018 2:53 PM WHEEL WORKER Sexual Orientation Not on file documented as of this encounter Plan of Treatment Not on file documented as of this encounter Procedures Procedure Name Priority Date/Time Associated Diagnosis Comments SCAN - LABS 01/13/2021 documented in this encounter Results * SCAN - LABS (01/13/2021) us Provider Scanning Final Result documented in this encounter Visit Diagnoses Not on filedocumented in this encounter Care Teams Hearing Examiner Relationship Specialty Start Date End Date Cheikh Ackerman MD [address] [place] [address] PCP - General 06/11/16 Pepe Nicole MD [address] [place] [address] Referring Physician Nephrology 04/24/20 Francisco Javier Uriostegui MD [address] [place] [address] Consulting Physician Cardiology 11/22/22 documented as of this encounter
--- NOTE | 2024-05-19 17:50 | ED.WEAKNESS ---
HPI - Weakness General Chief complaint: Weakness <Donald Norwood PA-C - Last Filed: 05/19/24 20:26> Stated complaint: Sent in for K+ of 2.5 by PMD <Donald Norwood PA-C - Last Filed: 05/19/24 20:26> Time Seen by Provider: 05/19/24 17:41 <Donald Norwood PA-C - Last Filed: 05/19/24 20:26> Source: patient <Donald Norwood PA-C - Last Filed: 05/19/24 20:26> Mode of arrival: ambulatory <Donald Norwood PA-C - Last Filed: 05/19/24 20:26> Limitations: no limitations <Donald Norwood PA-C - Last Filed: 05/19/24 20:26> History of Present Illness HPI Narrative: This is a 59-year-old female with PMH of chronic diarrhea, CKD stage III, insulin-dependent diabetes, CAD who presents to the ED for chief complaint of generalized weakness along with a abnormal lab value from PCP. Patient reports that her potassium a from this week is measured at 2.5. States that she has been undergoing workup with her mica plate layer hand and her primary care doctor for electrolyte abnormalities. States that she has been feeling very generally weak. Reports that she was having several months of diarrhea, however those symptoms seem to be resolving over the last week. Denies any focal weakness or numbness. Also states that she has been completing a taper off of prednisone with rheumatology over the past 18 months. She uses a CGM insulin pump and states that the required insulin dosing has been down lately. Denies fevers, chills, nausea, vomiting, abdominal pain, chest pain, shortness of breath, palpitations. <Donald Norwood PA-C - Last Filed: 05/19/24 20:26> Related Data Home medications: Home Medications ?Medication ?Instructions ?Recorded ?Confirmed ?Last Taken ?Type clopidogrel 75 mg tablet 75 mg PO DAILY 08/01/19 04/11/24 08/02/22 History subcutaneous insulin pump (MiniMed #1 ea 08/03/19 04/11/24 Unknown History 630G Insulin Pump) cholecalciferol (vitamin D3) 25 25 mcg PO DAILY 07/22/22 04/11/24 08/06/22 07:00 History mcg (1,000 unit) tablet (Vitamin D3) ferrous sulfate 325 mg (65 mg 325 mg PO DAILY 07/22/22 04/11/24 08/02/22 History iron) tablet (FeroSul) metoprolol succinate 50 mg 50 mg PO DAILY 10/13/22 04/11/24 Unknown History tablet,extended release 24 hr blood-glucose transmitter (Dexcom 01/29/23 04/11/24 Unknown History G6 Transmitter device) furosemide 80 mg tablet 20 mg PO BID 02/07/24 04/11/24 Unknown History losartan 50 mg tablet 50 mg PO DAILY 02/07/24 04/11/24 Unknown History prednisone 1 mg tablet 1 mg PO DAILY 04/11/24 04/11/24 Unknown History <Donald Norwood PA-C - Last Filed: 05/19/24 20:26> Allergies/Adverse reactions: Allergies Allergy/AdvReac Type Severity Reaction Status Date / Time levofloxacin (From Levaquin) Allergy Severe Swelling Verified 05/19/24 17:21 of Lip/Tongue/Throat itraconazole AdvReac Mild Itching Verified 05/19/24 17:21 Lamisil AdvReac Mild Other Uncoded 05/19/24 17:21 <Donald Norwood PA-C - Last Filed: 05/19/24 20:26> Review of Systems Review of Systems: All systems as dictated in HPI <Donald Norwood PA-C - Last Filed: 05/19/24 20:26> [facility] Past Medical History Medical History: Medical History Anemia Bilateral primary osteoarthritis of knee Coronary artery disease Depression Anxiety Insulin dependent type 2 diabetes mellitus Hyperlipidemia Chronic kidney disease, stage 3 Myocardial infarction Essential hypertension <Donald Norwood PA-C - Last Filed: 05/19/24 20:26> Surgical History Surgical History: Surgical History History of radial keratotomy History of coronary angioplasty History of section History of cardiac catheterization (2014) History of hip surgery (2018) ORIF right hip for IT fx <Donald Norwood PA-C - Last Filed: 05/19/24 20:26> Family History Family History: Family History Father Family history of heart disease in male family member before age 55 Family history of coronary artery disease Hypertension Grandparent Diabetes mellitus Cerebrovascular accident Mother Family history of heart disease in male family member before age 55 Family history of arthritis Endometrial cancer <Donald Norwood PA-C - Last Filed: 05/19/24 20:26> Social History Social History: Social History Social History: Surrogate medical decision maker: Louis May, spouse. Code status: Full code. Smoking status: Never smoker Second hand tobacco smoke exposure: No Alcohol intake: current Substance use: never Substance use type: does not use Living arrangements: with family Additional living arrangements comments: Lives with in [place]. 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: No Agree to blood products: Yes <Donald Norwood PA-C - Last Filed: 05/19/24 20:26> Exam Narrative: GENERAL: Well-appearing, well-nourished, and in no acute distress. HEAD: Normocephalic, atraumatic. EYES: PERRLA and EOMI. ENT: Nares clear, no rhinorrhea or epistaxis. Mucous membranes moist. Oropharynx without tonsillar hypertrophy exudate or other lesions. NECK: Supple. No adenopathy or masses. CHEST: No respiratory distress. Clear to auscultation. No wheezes rales or rhonchi HEART: Regular rate and rhythm. No murmur heard. Normal peripheral pulses. ABDOMEN: Soft, nontender, nondistended, normal active bowel sounds. MSK: Normal range of motion. No edema. SKIN: Warm, dry, no rash. NEURO: Alert and oriented x4. No focal deficits. PSYCH: Normal mood and affect. <Donald Norwood PA-C - Last Filed: 05/19/24 20:26> Course Vital Signs Vital signs: Vital Signs Temperature 97.5 F L 05/19/24 17:28 Pulse Rate 80 05/19/24 17:28 Respiratory Rate 18 03/08/25 17:28 Blood Pressure 135/61 05/19/24 17:28 Pulse Oximetry 96 05/19/24 17:28 Oxygen Delivery Room Air 05/19/24 17:28 Temperature 97.5 F L 05/19/24 17:28 Pulse Rate 63 05/20/24 01:30 Respiratory Rate 14 05/20/24 01:30 Blood Pressure 157/72 H 05/20/24 00:03 Pulse Oximetry 92 05/20/24 01:30 Oxygen Delivery Room Air 05/19/24 17:28 <Donald Norwood PA-C - Last Filed: 05/19/24 20:26> Vital Signs Temperature 97.5 F L 05/19/24 17:28 Pulse Rate 80 05/19/24 17:28 Respiratory Rate 18 05/19/24 17:28 Blood Pressure 135/61 05/19/24 17:28 Pulse Oximetry 96 05/19/24 17:28 Oxygen Delivery Room Air 05/19/24 17:28 Temperature 97.5 F L 05/19/24 17:28 Pulse Rate 63 05/20/24 01:30 Respiratory Rate 14 05/20/24 01:30 Blood Pressure 157/72 H 05/20/24 00:03 Pulse Oximetry 92 05/20/24 01:30 Oxygen Delivery Room Air 05/19/24 17:28 <Adria Boateng MD - Last Filed: 05/20/24 03:13> MDM - Weakness MDM Narrative Medical decision making narrative: This is a 59-year-old female who presents to the ED for generalized weakness as well as low potassium on outpatient lab draw. Vitals are normal. Exam remarkable for the above. She does not appear toxic or in acute distress. EKG shows some T-wave flattening but no acute ischemia. Lab work shows hypokalemia with potassium 2.2. Bicarb slightly elevated at 33. Creatinine is at her baseline with CKD stage 3. She has been having chronic diarrhea for the past 5-6 months and I do feel that this is likely the cause of her hypokalemia. Patient was started on potassium repletion p.o. and IV here. Feel that she will need to be observed for continued potassium repletion. Spoke with hospitalist Alvina GÓMEZ recommends admission to [facility]. Patient is understanding and agreeable with this plan. <Donald Norwood PA-C - Last Filed: 05/19/24 20:26> Lab Data Result diagrams: 05/19/24 18:04 05/20/24 01:49 <Donald Norwood PA-C - Last Filed: 05/19/24 20:26> Labs: Lab Results 05/19/24 Range/Units 18:04 WBC 8.5 (4.5-10.0) K/mm3 RBC 3.91 L (4.2-5.4) M/mm3 Hgb 10.8 L (12.0-15.0) g/dL Hct 33.9 L (37.0-47.0) % MCV 86.7 (80-100) fl MCH 27.6 (26-34) pg MCHC 31.9 L (32-36) g/dl RDW 15.5 H (11.5-14.5) % Plt Count 263 (150-375) k/mm3 MPV 10.4 (7.4-10.4) fl Immature Gran % (Auto) 0.2 (0-0.5) % Neut % (Auto) 82.7 H (45.5-73.1) % Lymph % (Auto) 10.4 L (18.3-44.2) % [place] % (Auto) 6.6 (2.6-8.5) % Eos % (Auto) 0.0 (0-4.4) % Baso % (Auto) 0.1 L (0.2-1.2) % Lymph # (Auto) 0.88 L (0.9-3.2) K/mm3 [place] # (Auto) 0.6 (0.1-0.6) K/mm3 Eos # (Auto) 0.0 (0-0.3) K/mm3 Baso # (Auto) 0.0 (0.0-0.1) K/mm3 Abs Immat Gran (auto) 0.02 (0.00-0.031) K/mm3 Absolute Neuts (auto) 7.0 H (1.3-6.7) K/mm3 Absolute Nucleated RBC 0.000 (0.0-0.012) K/mm3 Nucleated RBC % 0.0 (0.0-0.2) % Sodium 139 (137-145) mmol/L Potassium 2.2 L* (3.4-5.0) mmol/L Chloride 97 L (98-107) mmol/L Carbon Dioxide 33 H (22-30) mmol/L Anion Gap 9 (4-12) mmol/L BUN 27 H (7-17) mg/dL Creatinine 2.00 H (0.7-1.0) mg/dL Estim Creat Clear Calc 29 ml/min Estimated GFR 25 L (59 - ) Glucose 121 H (65-110) mg/dL Calcium 8.1 L (8.4-10.2) mg/dL Magnesium 1.9 (1.6-2.3) mg/dL Total Bilirubin 0.6 (0.2-1.3) mg/dL AST 19 (14-36) U/L ALT 14 (6-35) U/L Alkaline Phosphatase 58 (38-126) U/L Total Protein 5.0 L (6.3-8.2) g/dL Albumin 3.2 L (3.5-5.1) g/dL <Donald Norwood PA-C - Last Filed: 05/19/24 20:26> Lab Results 05/19/24 Range/Units 18:04 WBC 8.5 (4.5-10.0) K/mm3 RBC 3.91 L (4.2-5.4) M/mm3 Hgb 10.8 L (12.0-15.0) g/dL Hct 33.9 L (37.0-47.0) % MCV 86.7 (80-100) fl MCH 27.6 (26-34) pg MCHC 31.9 L (32-36) g/dl RDW 15.5 H (11.5-14.5) % Plt Count 263 (150-375) k/mm3 MPV 10.4 (7.4-10.4) fl Immature Gran % (Auto) 0.2 (0-0.5) % Neut % (Auto) 82.7 H (45.5-73.1) % Lymph % (Auto) 10.4 L (18.3-44.2) % [place] % (Auto) 6.6 (2.6-8.5) % Eos % (Auto) 0.0 (0-4.4) % Baso % (Auto) 0.1 L (0.2-1.2) % Lymph # (Auto) 0.88 L (0.9-3.2) K/mm3 [place] # (Auto) 0.6 (0.1-0.6) K/mm3 Eos # (Auto) 0.0 (0-0.3) K/mm3 Baso # (Auto) 0.0 (0.0-0.1) K/mm3 Abs Immat Gran (auto) 0.02 (0.00-0.031) K/mm3 Absolute Neuts (auto) 7.0 H (1.3-6.7) K/mm3 Absolute Nucleated RBC 0.000 (0.0-0.012) K/mm3 Nucleated RBC % 0.0 (0.0-0.2) % Sodium 139 (137-145) mmol/L Potassium 2.2 L* (3.4-5.0) mmol/L Chloride 97 L (98-107) mmol/L Carbon Dioxide 33 H (22-30) mmol/L Anion Gap 9 (4-12) mmol/L BUN 27 H (7-17) mg/dL Creatinine 2.00 H (0.7-1.0) mg/dL Estim Creat Clear Calc 29 ml/min Estimated GFR 25 L (59 - ) Glucose 121 H (65-110) mg/dL Calcium 8.1 L (8.4-10.2) mg/dL Magnesium 1.9 (1.6-2.3) mg/dL Total Bilirubin 0.6 (0.2-1.3) mg/dL AST 19 (14-36) U/L ALT 14 (6-35) U/L Alkaline Phosphatase 58 (38-126) U/L Total Protein 5.0 L (6.3-8.2) g/dL Albumin 3.2 L (3.5-5.1) g/dL <Adria Boateng MD - Last Filed: 05/20/24 03:13> ECG Data EKG #1: ECG completion date: 05/19/24 <Donald Norwood PA-C - Last Filed: 05/19/24 20:26> ECG completion time: 18:10 <Donald Norwood PA-C - Last Filed: 05/19/24 20:26> Prior ECG tracings: not available for review <Donald Nowrood PA-C - Last Filed: 05/19/24 20:26> Interpretation: Sinus rhythm Rate 74 Normal QRS Normal QTC T-wave flattening seen, No acute ischemic findings <Donald Norwood PA-C - Last Filed: 05/19/24 20:26> Discharge Plan Discharge Clinical Impression: Acute hypokalemia <Donald Nowrood PA-C - Last Filed: 05/19/24 20:26> Patient Disposition: Still a Patient <Donald Norwood PA-C - Last Filed: 05/19/24 20:26> Condition: Stable <Donald Norwood PA-C - Last Filed: 05/19/24 20:26> Attestation Supervising Provider Attestation This visit was performed by both a physician and an APC (ERICA Norwood). I performed all aspects of the MDM as documented. <Adria Boateng MD - Last Filed: 05/20/24 03:13>
--- OUTSIDE RECORDS SUMMARY | 2024-05-19 17:52 | XMS_ITS | Encounter Summary ---
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 Gender Identity Female 04/03/2018 2:53 PM MEAT MANAGER Sexual Orientation Not on file documented as of this encounter Plan of Treatment Not on file documented as of this encounter Procedures Procedure Name Priority Date/Time Associated Diagnosis Comments SCAN - LABS 01/13/2021 documented in this encounter Results * SCAN - LABS (01/13/2021) us Provider Scanning Final Result documented in this encounter Visit Diagnoses Not on filedocumented in this encounter Care Teams Senior Electrical Design Engineer Relationship Specialty Start Date End Date Cheikh Ackerman MD [address] [place] [address] PCP - General 06/11/16 Pepe Nicole MD [address] [place] [address] Referring Physician Nephrology 04/24/20 Francisco Javier Uriostegui MD [address] [place] [address] Consulting Physician Cardiology 11/22/22 documented as of this encounter
--- OUTSIDE RECORDS SUMMARY | 2024-05-19 17:52 | XMS_ITS | Clinical Summary ---
Author Organization [facility] Address [address] [address] Care Team Providers Care Stitch Bonding Machine Operator Name Role Phone Vanessa Cardoso MD Primary Care Provider [phone] Source Comments [facility],non-owned Affiliates and Associated Physician Practices is amultiple site organization consisting of ambulatory clinics and hospital sitesin [place], [place], [place] and [place]. This disclosure is being madepursuant to the Care Everywhere program and may not contain all information available regarding this patient. Last updated 17.[facility] [employer] Social History Tobacco Use Types Packs/Day Years [...] age to complete this topic Care Teams Stitch Bonding Machine Operator Relationship Specialty Start Date End Date Vanessa Cardoso MD [address] [place] [id number] PCP - General 01/09/21
--- OUTSIDE RECORDS SUMMARY | 2024-05-19 17:52 | XMS_ITS | Clinical Summary ---
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 08/05/2023 BOOP (bronchiolitis [...] on prednisone - advised to contact her ethylbenzene converter helper to discuss her blood pressure and edema [...] Department Care Team Description 05/18/2024 1:40 PM MINE DEPUTY - 05/18/2024 11:59 PM MINE DEPUTY Hospital Encounter [address] [address] Bilateral knee swelling; Chronic pain of both knees Discharge Disposition: Discharge to home or self care 05/18/2024 1:00 PM MINE DEPUTY Office Visit [facility] Sports Medicine and Primary Care at [address] [place] [phone] Ash Godwin DO Bilateral knee swelling (Primary Dx); Chronic pain of both knees 05/14/2024 9:00 AM MINE DEPUTY Office Visit [facility] Sports Medicine and Primary Care at [address] [place] [phone] Ash Godwin DO Primary osteoarthritis of both knees (Primary Dx) 05/03/2024 Telephone [facility] [address] [place] [address] Office [address] [place] [address] Crissy Mcadams NP 05/01/2024 1:30 PM MINE DEPUTY Office Visit [facility] [address] [place] [address] Office [address] [place] [phone] Crissy Mcadams NP Polymyalgia rheumatica syndrome (Primary Dx); terminal make up operator (current) use of systemic steroids 04/20/2024 Telephone [facility] [address] [facility] Medicine 5th [place] [address] [place] [address] Aspen Zapata 03/20/2024 1:00 PM MINE DEPUTY Office Visit [facility] [address] [facility] 5th [place] [address] [place] [address] CKD (chronic kidney disease) stage 4, GFR 15-29 ml/min (HCC) (Primary Dx); Essential hypertension; Proteinuria, unspecified type; Anemia in stage 4 chronic kidney disease (HCC); Renal osteodystrophy 03/12/2024 3:31 PM MINE DEPUTY - 03/12/2024 11:59 PM MINE DEPUTY Hospital Encounter [address] [address] CKD (chronic kidney disease) stage 4, GFR 15-29 ml/min (HCC); Vitamin D deficiency; Proteinuria, unspecified type Discharge Disposition: Discharge to home or self care 03/12/2024 12:30 PM MINE DEPUTY Ancillary Procedure [facility] Imaging at [address] [phone] terminal make up operator (current) use of systemic steroids 03/12/2024 12:15 PM MINE DEPUTY Ancillary Procedure [facility] Imaging at [address] [phone] terminal make up operator (current) use of systemic steroids 03/12/2024 11:24 AM MINE DEPUTY - 03/12/2024 11:59 PM MINE DEPUTY Hospital Encounter [address] [address] terminal make up operator (current) use of systemic steroids Discharge Disposition: Discharge to home or self care 03/12/2024 11:15 AM MINE DEPUTY Lab [facility] Outpatient Lab at [address] [phone] Mixed hyperlipidemia (Primary Dx); Type 2 diabetes [...] on file Legal Sex Female 11:58 PM MINE DEPUTY Gender Identity Female 04/03/2018 2:53 PM MINE DEPUTY Sexual Orientation Not on file Obstetrics History Last Filed Vital Signs Vital Sign Reading Time Taken Comments Blood Pressure 117/70 05/18/2024 1:18 PM MINE DEPUTY Pulse 93 05/18/2024 1:18 PM MINE DEPUTY Temperature 36.6 C (97.8 F) 05/01/2024 1:26 PM MINE DEPUTY Respiratory Rate 20 10/05/2023 10:52 AM CDT Oxygen Saturation 97% 05/01/2024 1:26 PM MINE DEPUTY Inhaled Oxygen Concentration - - Weight 85.7 kg (189 lb) 05/18/2024 1:18 PM MINE DEPUTY Height 165.1 cm (5' 5 ) 05/18/2024 1:18 PM MINE DEPUTY Body Mass Index 31.45 05/18/2024 1:18 PM MINE DEPUTY Plan of Treatment Health Maintenance Due Date [...] Procedure Name Priority Date/Time Associated Diagnosis Comments SD ARTHROCENTESIS ASPIR&/INJ MAJOR JT/BURSA W/US Routine 05/18/2024 1:00 PM MINE DEPUTY Bilateral knee swelling Chronic pain of both knees XR KNEE RIGHT 3 VIEWS Schedule Routine, Read Routine (OP Routine) 03/12/2024 11:34 AM MINE DEPUTY correction (current) use of systemic steroids XR KNEE LEFT 3 VIEWS Schedule Routine, Read Routine (OP Routine) 03/12/2024 11:34 AM MINE DEPUTY correction (current) use of systemic steroids EGFR Routine 03/12/2024 11:25 AM MINE DEPUTY CKD (chronic kidney disease) stage 4, GFR 15-29 ml/min (HCC) Vitamin D deficiency Proteinuria, unspecified type RENAL FUNCTION PANEL Routine 03/12/2024 11:25 AM MINE DEPUTY CKD (chronic kidney disease) stage 4, GFR 15-29 ml/min (HCC) Vitamin D deficiency Proteinuria, unspecified type VITAMIN D 25 HYDROXY Routine 03/12/2024 11:25 AM MINE DEPUTY CKD (chronic kidney disease) stage 4, GFR 15-29 ml/min ([facility]) Vitamin D deficiency Proteinuria, unspecified type PROTEIN / CREATININE RATIO, URINE, RANDOM Routine 03/12/2024 11:25 AM MINE DEPUTY CKD (chronic kidney disease) stage 4, GFR 15-29 ml/min (HCC) Vitamin D deficiency Proteinuria, unspecified type CRP (ACUTE PHASE) Routine 03/12/2024 11: 25 AM MINE DEPUTY terminal make up operator (current) use of systemic steroids ERYTHROCYTE SEDIMENTATION RATE Routine 03/12/2024 11:25 AM MINE DEPUTY correction (current) use of systemic steroids IRON PROFILE W/ IBC Routine 03/12/2024 1 1:25 AM MINE DEPUTY terminal make up operator (current) use of systemic steroids VITAMIN B12 Routine 03/12/2024 11:25 AM MINE DEPUTY correction (current) use of systemic steroids POCT HEMOGLOBIN A1C Routine 10/25/2023 9 :17 AM CDT Type 2 diabetes mellitus without complication, with long-term current use of insulin ([facility]) POCT LIPID PANEL Routine 08/10/2023 2:56 PM CDT Lipid screening from Last 3 Months or Most Recently Relevant to Health Maintenance Results * SD ARTHROCENTESIS ASPIR&/INJ MAJOR JT/BURSA W/US (05/18/2024 1:00 PM MINE DEPUTY) Narrative Ash Godwin DO - 05/18/2024 1:00 PM MINE DEPUTY Ash Godwin DO 05/18/2024 1:44 PM Large [...] Ultrasound guided left knee injection Patient name: oRsanne De Leonbernie Performing physician: ROSELYN Hernandez DO, [...] Ultrasound guided right knee injection Patient name: Rosnane Ly Yadira Performing physician: ROSELYN Hernandez DO, [...] mg methylPREDNISolone acetate 80 mg/mL us Ash Godiwn DO IN CLINIC/BEDSIDE [facility]YES Final Result * X-ray knee right 3 views (03/12/2024 11:34 AM MINE DEPUTY) Anatomical Region Laterality Modality Lower Extremities, Knee Right Digital Radiography 03/12/2024 7:48 PM MINE DEPUTY Narrative 03/12/2024 7:49 PM MINE DEPUTY EXAM DESCRIPTION: XR KNEE LEFT 3 VIEWS; [...] by Ash Rubio M.D. T: Report ID: [id number] Reading Location: [id number] Procedure Note Ash Rubio MD - 03/12/2024 [...] by Ash Rubio M.D. T: Report ID: [id number] Reading Location: [id number] Crissy Mcadams TECHNOLOGY SUPPORT ANALYST IMG XR PROCEDURES Final Result * X-ray knee left 3 views (03/12/2024 11:34 AM MINE DEPUTY) Anatomical Region Laterality Modality Lower Extremities, Knee Left Digital Radiography 03/12/2024 7:48 PM MINE DEPUTY Narrative 03/12/2024 7:49 PM MINE DEPUTY EXAM DESCRIPTION: XR KNEE LEFT 3 VIEWS; [...] by Ash Rubio M.D. T: Report ID: [id number] Reading Location: [id number] Procedure Note Ash Rubio MD - 03/12/2024 [...] by Ash Rubio M.D. T: Report ID: [id number] Reading Location: [place] [address] Crissy Mcadams TECHNOLOGY SUPPORT ANALYST IMG XR PROCEDURES Final Result * (ABNORMAL) eGFR (03/12/2024 11:25 AM MINE DEPUTY) eGFR 35(L) >=60 mL/min/1. 73 m2 Comment: [...] reviewed 2021. Blood 03/12/2024 11:2 5 AM MINE DEPUTY 03/12/2024 8:18 PM MINE DEPUTY us Brittnee Blackwell MD LAB BLOOD ORDERABLES Fi nal Result Performing Organization Address City/[facility] Co de Phone Number [facility] [address] [address] [facility] [place] [address] * (ABNORMAL) Iron profile w/ IBC (03/12/2024 11:25 AM MINE DEPUTY) [facility] Iron 37 35 - 145 mcg/dl TIBC 200(L) 250 - 400 mcg/dL [facility] Transferrin saturation 19(L) 20 - 50 % [facility] Blood 03/12/2024 11:2 5 AM MINE DEPUTY 03/12/2024 8:18 PM MINE DEPUTY Crissy Mcadams NP LAB BLOOD ORDERABLES Fi nal Result Performing Organization Address [facility] Co de Phone Number [facility] [address] [facility] [employer] [place], [place] [id number] * (ABNORMAL) Protein / creatinine ratio, urine, random (03/12/2024 11:25 AM MINE DEPUTY) [facility] Protein, ur, quant 196.5 mg/dL Comment: Interpretive Data No reference range established. Current interpretive data was last revised 2018. Creatinine Ur 164.2 mg/dL [facility] Comment: Interpretive Data No reference range established. Current interpretive data was last revised 2018. Protein/creatinin e ratio 1,196.7(H ) 0.0 - 180.0 mg/g CR [facility] Urine 03/12/2024 11:2 5 AM MINE DEPUTY 03/12/2024 8:38 PM MINE DEPUTY Brittnee Blackwell MD LAB URINE ORDERABLES Fi nal Result Performing Organization Address [facility] Co de Phone Number [facility] [address] [facility] [place] [address] * (ABNORMAL) Vitamin D 25 hydroxy (03/12/2024 11:25 AM MINE DEPUTY) Vitamin D 25-OH 28(L) 30 - 80 ng/mL Blood 03/12/2024 11:2 5 AM MINE DEPUTY 03/12/2024 8:18 PM MINE DEPUTY us Brittnee Blackwell MD LAB BLOOD ORDERABLES Fi nal Result Performing Organization Address [facility] Co de Phone Number [facility] [address] [facility] [place] [address] * Erythrocyte sedimentation rate (03/12/2024 11:25 AM MINE DEPUTY) Erythrocyte sedimentation rate 16 1 - 30 mm/hr Blood 03/12/2024 11:2 5 AM MINE DEPUTY 03/12/2024 8:18 PM MINE DEPUTY us Crissy Mcadams NP LAB BLOOD ORDERABLES Fi nal Result Performing Organization Address [facility] de [facility] [address] [facility] [place] [address] * (ABNORMAL) CRP (acute phase) (03/12/2024 11:25 AM MINE DEPUTY) CRP 18.4(H) <=10.0 mg/L Blood 03/12/2024 11:2 5 AM MINE DEPUTY 03/12/2024 8:18 PM MINE DEPUTY us Crissy Mcadams NP LAB BLOOD ORDERABLES Fi nal Result Performing Organization Address [facility] de Phone Number [facility] [address] [facility] [place] [address] * Vitamin B12 (03/12/2024 11:25 AM MINE DEPUTY) Vitamin B12 545 230 - 1,250 pg/mL Blood 03/12/2024 11:2 5 AM MINE DEPUTY 03/12/2024 8:18 PM MINE DEPUTY us Crissy Mcadams TECHNOLOGY SUPPORT ANALYST LAB BLOOD ORDERABLES Fi nal Result [facility] [address] [place] [address] * (ABNORMAL) Renal function panel (03/12/2024 11:25 AM MINE DEPUTY) Sodium 144 135 - 145 mmol/L Potassium, [...] g/dL CERNER Blood 03/12/2024 11:2 5 AM MINE DEPUTY 03/12/2024 8:18 PM MINE DEPUTY Brittnee Blackwell MD LAB BLOOD ORDERABLES Fi nal Result [facility] [place] [address] Department [place] [address] * POCT hemoglobin A1c (10/25/2023 9:17 AM [...] Most Recently Relevant to Health Maintenance Insurance [employer] ACCESS CHOICE Care Teams Executive Steward Relationship Specialty Start Date End Date Cheikh Ackerman MD [address] [place] [address] PCP - General 06/11/16 [place] [address] [place] [address] [place] [address] Referring Physician Nephrology 04/24/20 Francisco Javier Urisotegui MD [address] [facility] [address] [facility] [address] [place] [address] Consulting Physician Cardiology 11/22/22
--- OUTSIDE RECORDS SUMMARY | 2024-05-19 17:52 | XMS_ITS | Encounter Summary ---
Author Organization [facility] Address Replaced by [facility] [place] [address] Care Team Providers Care Security Control Room Officer Name Role Phone Linda Euceda Primary Care Provider [phone] Encounter Details Date Type Department Care Team (Late st Contact Info) Description 02/05/2022 [employer] Message Enc [facility] Family & Internal Medicine [facility] [id number] [place] [phone] [facility] Provider Pap smear Social History Tobacco Use [...] on file Legal Sex Female 5:38 PM MOBILE LOUNGE DRIVER Gender Identity Not on file Sexual Orientation Not on file documented as of this encounter Plan of Treatment Not on file documented as of this encounter Visit Diagnoses Not on filedocumented in this encounter Additional Health Concerns Assessment Noted Time PHQ-9 Depression Total Score: 8 04/21/19 22 4:17 PM MOBILE LOUNGE DRIVER documented as of this encounter Care Teams Security Control Room Officer Relationship Specialty [place] [address] [place] [address] PCP - General PHYSICIAN ECOTHERAPIST 04/08/21 documented as of this encounter
--- OUTSIDE RECORDS SUMMARY | 2024-05-19 17:52 | XMS_ITS | Patient Health Summary ---
Author Organization [facility] Address [address] [place] [place] [address] Care Team Providers Care Java Programming Professor Name Role Phone Vanessa Cardoso MD Primary Care Provider [phone] Note from [facility],non-owned Affiliates and Associated Physician Practices is amultiple site organization consisting of ambulatory clinics and hospital sitesin [place], [place], [place] and [place]. This disclosure is being madepursuant to the Care Everywhere program and may not contain all information available regarding this patient. Last updated 17.[facility] Social History Tobacco Use Types Packs/Day Years Used Date Smoking Tobacco: Never Assessed Sex and Gender Information Value Date Recorded Sex Assigned at Not on file Gender Identity Not on file Sexual Orientation Not on file Care Teams Java Programming Professor Relationship Specialty Start Date End Date Vanessa Cardoso MD [address] [place] [address] PCP - General 01/09/21
--- OUTSIDE RECORDS SUMMARY | 2024-05-19 17:52 | XMS_ITS | Encounter Summary ---
Author Organization [facility] Facility Care Team Providers Care Maritime Pilot Name Role Phone Cheikh Ackerman MD Primary Care Prov ider Cheikh Ackerman MD Primary Care Prov ider Cheikh Ackerman MD Primary Care Prov ider Pepe Nicole MD Unavailable [phone] Francisco Javier Uriostegui MD Unavailable Encounter Details Date Type Department Care Team (Latest Contact Info) Description 02/26/2016 Orders Only [facility] CLINCONV ProviderYohan MD [address] [place] [address] Social History Tobacco Use Types Packs/Day Years Used Date Smoking Tobacco: Never Assessed Comments Unknown Sex and Gender Information Value Date Recorded Sex Assigned at Not on file Legal Sex Female 11:58 PM COILED TUBING SUPERVISOR Gender Identity Female 04/03/2018 2:53 PM COILED TUBING SUPERVISOR Sexual Orientation Not on file documented as of this encounter Plan of Treatment Not on file documented as of this encounter Procedures Procedure Name Priority Date/Time Associated Diagnosis Comments PROCEDURE - RESULT 02/26/2016 12 :00 AM COILED TUBING SUPERVISOR documented in this encounter Results * PROCEDURE - RESULT (02/26/2016 12:00 AM COILED TUBING SUPERVISOR) Narrative 02/26/2016 12:00 AM COILED TUBING SUPERVISOR Ordered by an unspecified provider. us Historical Provider Final Res ult documented in this encounter Visit Diagnoses Not on filedocumented in this encounter Care Teams Maritime Pilot Relationship Specialty Start Date End Date Cheikh Ackerman MD [address] [place] [address] PCP - General 06/11/16 Cheikh Ackerman MD [address] [place] [address] PCP - General 05/04/16 06/10/16 Cheikh Ackerman MD [address] [place] [address] PCP - General 04/25/06 05/03/16 Pepe Nicole MD [address] [place] [address] Referring Physician Nephrology 04/24/20 Francisco Javier Uriostegui MD [address] [facility] [address] [place] [address] Consulting Physician Cardiology 11/22/22 documented as of this encounter
--- OUTSIDE RECORDS SUMMARY | 2024-05-19 17:52 | XMS_ITS | Encounter Summary ---
Author Organization [facility] Facility Care Team Providers Care Respiratory Practitioner Name Role Phone Cheikh Ackerman MD Primary Care Prov ider Cheikh Ackerman MD Primary Care Prov ider Cheikh Ackerman MD Primary Care Prov ider Pepe Nicole MD Unavailable [phone] Francisco Javier Uriostegui MD Unavailable Encounter Details Date Type Department Care Team (Latest Contact Info) Description 02/18/2016 Orders Only [facility] CLINCONV ProviderYohan MD [address] [place] [address] Social History Tobacco Use Types Packs/Day Years Used Date Smoking Tobacco: Never Assessed Comments Unknown Sex and Gender Information Value Date Recorded Sex Assigned at Not on file Legal Sex Female 11:58 PM TELEPHONIC NURSE Gender Identity Female 04/03/2018 2:53 PM TELEPHONIC NURSE Sexual Orientation Not on file documented as of this encounter Plan of Treatment Not on file documented as of this encounter Procedures Procedure Name Priority Date/Time Associated Diagnosis Comments SCAN - PATHOLOGY 02/20/2016 12:0 0 AM TELEPHONIC NURSE SCAN - LABS 02/20/2016 12:00 AM TELEPHONIC NURSE SCAN - LABS 02/20/2016 12:00 AM TELEPHONIC NURSE SCAN - LABS 02/20/2016 12:00 AM TELEPHONIC NURSE SCAN - LABS 02/20/2016 12:00 AM TELEPHONIC NURSE documented in this encounter Results * SCAN - LABS (02/20/2016 12:00 AM TELEPHONIC NURSE) Narrative 02/20/2016 12:00 AM TELEPHONIC NURSE Ordered by an unspecified provider. Historical Provider Final Res ult * SCAN - PATHOLOGY (02/20/2016 12:00 AM TELEPHONIC NURSE) Narrative 02/20/2016 12:00 AM TELEPHONIC NURSE Ordered by an unspecified provider. [facility] Provider Final Res ult * SCAN - LABS (02/20/2016 12:00 AM TELEPHONIC NURSE) Narrative 02/20/2016 12:00 AM TELEPHONIC NURSE Ordered by an unspecified provider. [facility] Provider Final Res ult * SCAN - LABS (02/20/2016 12:00 AM TELEPHONIC NURSE) Narrative 02/20/2016 12:00 AM TELEPHONIC NURSE Ordered by an unspecified provider. [facility] Provider Final Res ult * SCAN - LABS (02/20/2016 12:00 AM TELEPHONIC NURSE) Narrative 02/20/2016 12:00 AM TELEPHONIC NURSE Ordered by an unspecified provider. [facility] Provider Final Res ult documented in this encounter Visit Diagnoses Not on filedocumented in this encounter Care Teams Respiratory Practitioner Relationship Specialty Start Date End Date Cheikh Ackerman MD [address] [place] [address] PCP - General 06/11/16 Cheikh Ackerman MD [address] [place] [address] PCP - General 05/04/16 06/10/16 Cheikh Ackerman MD [address] [place] [address] PCP - General 04/25/06 05/03/16 Pepe Nicole MD [address] [place] [address] Referring Physician Nephrology 04/24/20 Francisco Javier Uriostegui MD [address] [facility] [address] [place] [address] Consulting Physician Cardiology 11/22/22 documented as of this encounter
--- OUTSIDE RECORDS SUMMARY | 2024-05-19 17:52 | XMS_ITS | Encounter Summary ---
Author Organization [facility] Facility Care Team Providers Care International Travel Consultant Name Role Phone Cheikh Ackerman MD Primary Care Prov ider Cheikh Ackerman MD Primary Care Prov ider Cheikh Ackerman MD Primary Care Prov ider Pepe Nicole MD Unavailable [phone] Francisco Javier Uriostegui MD Unavailable Encounter Details Date Type Department Care Team (Latest Contact Info) Description 03/12/2016 Orders Only [facility] CLINCONV ProviderYohan MD [address] [place], [place] [id number] Social History Tobacco Use Types Packs/Day Years Used Date Smoking Tobacco: Never Assessed Comments Unknown Sex and Gender Information Value Date Recorded Sex Assigned at Not on file Legal Sex Female 11:58 PM EXCELLENCE SPECIALIST Gender Identity Female 04/03/2018 2:53 PM EXCELLENCE SPECIALIST Sexual Orientation Not on file documented as of this encounter Plan of Treatment Not on file documented as of this encounter Procedures Procedure Name Priority Date/Time Associated Diagnosis Comments SCAN - LABS 04/06/2016 12:00 AM EXCELLENCE SPECIALIST SCAN - PATHOLOGY 03/12/2016 12:0 0 AM EXCELLENCE SPECIALIST documented in this encounter Results * SCAN - LABS (04/06/2016 12:00 AM EXCELLENCE SPECIALIST) Narrative 04/06/2016 12:00 AM EXCELLENCE SPECIALIST Ordered by an unspecified provider. Historical Provider Final Res ult * SCAN - PATHOLOGY (03/12/2016 12:00 AM EXCELLENCE SPECIALIST) Narrative 03/12/2016 12:00 AM EXCELLENCE SPECIALIST Ordered by an unspecified provider. Historical Provider Final Res ult documented in this encounter Visit Diagnoses Not on filedocumented in this encounter Care Teams International Travel Consultant Relationship Specialty Start Date End Date Cheikh Ackerman MD [address] [place] [address] PCP - General 06/11/16 Cheikh Ackerman MD [address] [place] [address] PCP - General 05/04/16 06/10/16 Cheikh Ackerman MD [address] [place] [address] PCP - General 04/25/06 05/03/16 Pepe Nicole MD [address] [place] [address] Referring Physician Nephrology 04/24/20 Francisco Javier Uriostegui MD [address] [place] [address] Consulting Physician Cardiology 11/22/22 documented as of this encounter
--- OUTSIDE RECORDS SUMMARY | 2024-05-19 17:52 | XMS_ITS | Encounter Summary ---
Author Organization [facility] Address [address] [place] [address] Care Team Providers Care Film Critic Name Role Phone Linda Euceda Primary Care Provider [phone] Encounter Details Date Type Department Care Team (Late st Contact Info) Description 05/20/2021 H-care Message Enc [facility] Family & Internal Medicine [facility] [id number] [place] [phone] [place] [address] [place] [address] 05/26/21 Appointment Social History Tobacco [...] on file Legal Sex Female 5:38 PM BUNDLE SORTER Gender Identity Not on file Sexual Orientation Not on file COVID-19 Exposure Response Date Recorded In the last 10 days, have yo u been in contact with someone who was confirmed or suspected to have Coronavirus/COVID-19? No / Unsure 04/21/2021 3:52 PM BUNDLE SORTER documented as of this encounter Plan of Treatment Not on file documented as of this encounter Visit Diagnoses Not on filedocumented in this encounter Additional Health Concerns Assessment Noted Time PHQ-9 Depression Total Score: 8 04/21/19 22 4:17 PM BUNDLE SORTER documented as of this encounter Care Teams Film Critic Relationship Specialty [place] [address] [place] [address] PCP - General PHYSICIAN PROCESS AUTOMATION ENGINEER 04/08/21 documented as of this encounter
--- OUTSIDE RECORDS SUMMARY | 2024-05-19 17:52 | XMS_ITS | Encounter Summary ---
Author Organization [facility] Healthcare Address [address] [place] [address] Care Team Providers Care Button Buttonhole Marker Name Role Phone Cheikh Ackerman MD Primary Care Prov ider Pepe Nicole MD Unavailable [phone] Francisco Javier Uriostegui MD Unavailable Encounter Details Date Type Department Care Team (Latest Contact Info) Description 05/18/2024 1:40 PM GAS MASK INSPECTOR - 05/18/2024 11:59 PM GAS MASK INSPECTOR Hospital Encounter [address] [address] Bilateral knee swelling; Chronic pain of both [...] on file Legal Sex Female 11:58 PM GAS MASK INSPECTOR Gender Identity Female 04/03/2018 2:53 PM GAS MASK INSPECTOR Sexual Orientation Not on file documented as [...] as directed 200 3 11/06/2007 blood-glucose sensor ([employer] G7 Sensor) device CHANGE SENSOR EVERY 10 [...] complication, with long-term current use of insulin ([facility]) USE WITH INSULIN PUMP, MAXIMUM DAILY DOSE IS 120 UNITS 110 mL 2 01/05/2024 insulin glargine (LANTUS) 100 unit/mL (3 mL) pen for injection Inject 54 units. 1 times per day when off pump TDD 54 units. 15 mL 1 04/27/2023 insulin lispro (HumaLOG) 100 unit/mL vial for injectionIndicat ions:Type 2 diabetes mellitus without complication, with long-term current use of insulin ([facility]) Use the insulin for insulin pump [...] pain of both knees 05/18/2024 1:40 PM GAS MASK INSPECTOR Scheduled Orders Name Type Priority Associated Diagnoses Orde r Schedule Crystal Analysis, Body Fluid Lab Routine Bilateral knee swelling Chronic pain of both knees Once for 1 Occurrences starting 05/18/2024 until 05/18/2024 documented as of this encounter Visit Diagnoses Diagnosis Bilateral knee swelling Chronic pain of both knees documented in this encounter Care Teams Button Buttonhole Marker Relationship Specialty Start Date End Date Cheikh Ackerman MD [address] [place] [address] PCP - General 06/11/16 Pepe Nicole MD [address] [facility] [address] [place] [address] Referring Physician Nephrology 04/24/20 Francisco Javier Uriostegui MD [address] [facility] [address] [place] [address] Consulting Physician Cardiology 11/22/22 documented as of this encounter
--- OUTSIDE RECORDS SUMMARY | 2024-05-19 17:52 | XMS_ITS | Encounter Summary ---
Author Organization [facility] Address [address] [place] [address] Phone Care Team Providers Care Hadoop Analyst Name Role Phone Cheikh Ackerman MD Primary Care Prov ider Pepe Nicole MD Unavailable Francisco Javier Uriostegui MD Unavailable Encounter Details [...] on file Legal Sex Female 11:58 PM FOOD PROCESSING SCIENTIST Gender Identity Female 04/03/2018 2:53 PM FOOD PROCESSING SCIENTIST Sexual Orientation Not on file documented as [...] on filedocumented in this encounter Care Teams Hadoop Analyst Relationship Specialty Start Date End Date Cheikh Ackerman MD [address] [place] [address] PCP - General 06/11/16 Pepe Nicole MD [address] [place] [address] Referring Physician Nephrology 04/24/20 Francisco Javier Uriostegui MD [address] [place] [address] Consulting Physician Cardiology 11/22/22 documented as of this encounter
--- OUTSIDE RECORDS SUMMARY | 2024-05-19 17:52 | XMS_ITS | Referral Summary ---
Author Organization [facility] Address [address] [place] [address] Care Team Providers Care Section 8 Property Manager Name Role Phone Cheikh Ackerman MD Primary Care Prov ider Pepe Nicole MD Unavailable Francisco Javier Uriostegui MD Unavailable Encounters Date Type Department Care Team Description 05/18/2024 1:40 PM MERCHANDISE COMPLAINT ADJUSTER - 05/18/2024 11:59 PM MERCHANDISE COMPLAINT ADJUSTER Hospital Encounter [address] [address] Bilateral knee swelling; Chronic pain of both knees Discharge Disposition: Discharge to home or self care 05/18/2024 1:00 PM MERCHANDISE COMPLAINT ADJUSTER Office Visit [facility] Medical Group Sports Medicine and Primary Care at [address] [phone] Ash Godwin DO Bilateral knee swelling (Primary Dx); Chronic pain of both knees 05/14/2024 9:00 AM MERCHANDISE COMPLAINT ADJUSTER Office Visit [facility] Medical [facility] Sports Medicine and Primary Care at [address] [phone] Ash Godwin DO Primary osteoarthritis of both knees (Primary Dx) 05/03/[address] Medical Office Building [address] [place] [address] Crissy Mcadams NP 05/01/2024 1:30 PM MERCHANDISE COMPLAINT ADJUSTER Office Visit [facility] Rheumatology [address] [facility] Medical Office Building [address] [place] [address] Crissy Mcadams NP Polymyalgia rheumatica syndrome (Primary Dx); watermelon inspector (current) use of systemic steroids 04/20/2024 Telephone [facility] Nephrology [address] [facility] 5th [place] [address] [place] [address] Aspen Zapata 03/20/2024 1:00 PM MERCHANDISE COMPLAINT ADJUSTER Office Visit [facility] Nephrology [facility] 5th [place] [address] [place] [phone] CKD (chronic kidney disease) stage 4, GFR 15-29 ml/min (HCC) (Primary Dx); Essential hypertension; Proteinuria, unspecified type; Anemia in stage 4 chronic kidney disease (HCC); Renal osteodystrophy 03/12/2024 3:31 PM MERCHANDISE COMPLAINT ADJUSTER - 03/12/2024 11:59 PM MERCHANDISE COMPLAINT ADJUSTER Hospital Encounter [address] [address] CKD (chronic kidney disease) stage 4, GFR 15-29 ml/min (HCC); Vitamin D deficiency; Proteinuria, unspecified type Discharge Disposition: Discharge to home or self care 03/12/2024 11:24 AM MERCHANDISE COMPLAINT ADJUSTER - 03/12/2024 11:59 PM MERCHANDISE COMPLAINT ADJUSTER Hospital Encounter [address] [address] watermelon inspector (current) use of systemic steroids Discharge Disposition: Discharge to home or self care 03/12/2024 12:30 PM MERCHANDISE COMPLAINT ADJUSTER Ancillary Procedure [facility] Medical [facility] Imaging at [address] [address] penitentiary (current) use of systemic steroids 03/12/2024 12:15 PM MERCHANDISE COMPLAINT ADJUSTER Ancillary Procedure [facility] Medical Group Imaging at [address] [phone] watermelon inspector (current) use of systemic steroids 03/12/2024 11:15 AM MERCHANDISE COMPLAINT ADJUSTER Lab [facility] Medical Group Outpatient Lab at [address] [address] Mixed hyperlipidemia (Primary Dx); Type [...] complication, with long-term current use of insulin ([facility]) USE WITH INSULIN PUMP, MAXIMUM DAILY DOSE IS 120 UNITS 110 mL 2 01/05/20 24 Active insulin lispro (HumaLOG) 100 unit/mL vial for injectionIndic ations:Type 2 diabetes mellitus without complication, with long-term current use of insulin ([facility]) Use the insulin for insulin [...] insulin 10/25/2023 ILD (interstitial lung disease) 10/05/2023 training and documentation specialist associated with adverse incidents 08/05/2023 BOOP (bronchiolitis [...] on prednisone - advised to contact her home performance consultant to discuss her blood pressure and edema [...] on file Legal Sex Female 11:58 PM MERCHANDISE COMPLAINT ADJUSTER Gender Identity Female 04/03/2018 2:53 PM MERCHANDISE COMPLAINT ADJUSTER Sexual Orientation Not on file Last Filed Vital Signs Vital Sign Reading Time Taken Comments Blood Pressure 117/70 05/18/2024 1:18 PM MERCHANDISE COMPLAINT ADJUSTER Pulse 93 05/18/2024 1:18 PM MERCHANDISE COMPLAINT ADJUSTER Temperature 36.6 C (97.8 F) 05/01/2024 1:26 PM MERCHANDISE COMPLAINT ADJUSTER Respiratory Rate 20 10/05/2023 10:52 AM CDT Oxygen Saturation 97% 05/01/2024 1:26 PM MERCHANDISE COMPLAINT ADJUSTER Inhaled Oxygen Concentration - - Weight 85.7 kg (189 lb) 05/18/2024 1:18 PM MERCHANDISE COMPLAINT ADJUSTER Height 165.1 cm (5' 5 ) 05/18/2024 1:18 PM MERCHANDISE COMPLAINT ADJUSTER Body Mass Index 31.45 05/18/2024 1:18 PM MERCHANDISE COMPLAINT ADJUSTER Plan of Treatment Not on file Procedures Procedure Name Priority Date/Time Associated Diagnosis Comments ND ARTHROCENTESIS ASPIR&/INJ MAJOR JT/BURSA W/US Routine 05/18/2024 1:00 PM MERCHANDISE COMPLAINT ADJUSTER Bilateral knee swelling Chronic pain of both knees XR KNEE RIGHT 3 VIEWS Schedule Routine, Read Routine (OP Routine) 03/12/2024 11:34 AM MERCHANDISE COMPLAINT ADJUSTER penitentiary (current) use of systemic steroids XR KNEE LEFT 3 VIEWS Schedule Routine, Read Routine (OP Routine) 03/12/2024 11:34 AM MERCHANDISE COMPLAINT ADJUSTER watermelon inspector (current) use of systemic steroids EGFR Routine 03/12/2024 11:25 AM MERCHANDISE COMPLAINT ADJUSTER CKD (chronic kidney disease) stage 4, GFR 15-29 ml/min ([facility]) Vitamin D deficiency Proteinuria, unspecified type RENAL FUNCTION PANEL Routine 03/12/2024 11:25 AM MERCHANDISE COMPLAINT ADJUSTER CKD (chronic kidney disease) stage 4, GFR 15-29 ml/min (HCC) Vitamin D deficiency Proteinuria, unspecified type VITAMIN D 25 HYDROXY Routine 03/12/2024 11:25 AM MERCHANDISE COMPLAINT ADJUSTER CKD (chronic kidney disease) stage 4, GFR 15-29 ml/min (HCC) Vitamin D deficiency Proteinuria, unspecified type PROTEIN / CREATININE RATIO, URINE, RANDOM Routine 03/12/2024 11:25 AM MERCHANDISE COMPLAINT ADJUSTER CKD (chronic kidney disease) stage 4, GFR 15-29 ml/min (HCC) Vitamin D deficiency Proteinuria, unspecified type CRP (ACUTE PHASE) Routine 03/12/2024 11: 25 AM MERCHANDISE COMPLAINT ADJUSTER penitentiary (current) use of systemic steroids ERYTHROCYTE SEDIMENTATION RATE Routine 03/12/2024 11:25 AM MERCHANDISE COMPLAINT ADJUSTER penitentiary (current) use of systemic steroids IRON PROFILE W/ IBC Routine 03/12/2024 1 1:25 AM MERCHANDISE COMPLAINT ADJUSTER watermelon inspector (current) use of systemic steroids VITAMIN B12 Routine 03/12/2024 11:25 AM MERCHANDISE COMPLAINT ADJUSTER penitentiary (current) use of systemic steroids POCT HEMOGLOBIN A1C Routine 10/25/2023 9 :17 AM CDT Type 2 diabetes mellitus without complication, with long-term current use of insulin ([facility]) POCT LIPID PANEL Routine 08/10/2023 2:56 PM CDT Lipid screening from Last 3 Months or Most Recently Relevant to Health Maintenance Results * ND ARTHROCENTESIS ASPIR&/INJ MAJOR JT/BURSA W/US (05/18/2024 1:00 PM MERCHANDISE COMPLAINT ADJUSTER) Narrative Ash Godwin DO - 05/18/2024 1:00 PM MERCHANDISE COMPLAINT ADJUSTER Ash Godwin DO 05/18/2024 1:44 PM Large [...] guided right knee injection Patient name: Rosanne aMy Performing physician: ROSELYN Hernandez DO, CAQSM Reason [...] knee right 3 views (03/12/2024 11:34 AM MERCHANDISE COMPLAINT ADJUSTER) Anatomical Region Laterality Modality Lower Extremities, Knee Right Digital Radiography 03/12/2024 7:48 PM MERCHANDISE COMPLAINT ADJUSTER Narrative 03/12/2024 7:49 PM MERCHANDISE COMPLAINT ADJUSTER EXAM DESCRIPTION: XR KNEE LEFT 3 VIEWS; [...] by Ash Rubio M.D. T: Report ID: [id number] Reading Location: [place] [address] Procedure Note Ash Rubio MD - 03/12/2024 [...] by Ash Rubio M.D. T: Report ID: [id number] Reading Location: [place] [address] Crissy Mcadams DIGITAL MEDIA INTERN IMG XR PROCEDURES Final Result * X-ray knee left 3 views (03/12/2024 11:34 AM MERCHANDISE COMPLAINT ADJUSTER) Anatomical Region Laterality Modality Lower Extremities, Knee Left Digital Radiography 03/12/2024 7:48 PM MERCHANDISE COMPLAINT ADJUSTER Narrative 03/12/2024 7:49 PM MERCHANDISE COMPLAINT ADJUSTER EXAM DESCRIPTION: XR KNEE LEFT 3 VIEWS; [...] by Ash Rubio M.D. T: Report ID: [id number] Reading Location: [place] [address] Procedure Note Ash Rubio MD - 03/12/2024 [...] by Ash Rubio M.D. T: Report ID: [id number] Reading Location: [id number] Crissy Mcadams DIGITAL MEDIA INTERN IMG XR PROCEDURES Final Result * (ABNORMAL) eGFR (03/12/2024 11:25 AM MERCHANDISE COMPLAINT ADJUSTER) eGFR 35(L) >=60 mL/min/1. 73 m2 Comment: [...] reviewed 2021. Blood 03/12/2024 11:2 5 AM MERCHANDISE COMPLAINT ADJUSTER 03/12/2024 8:18 PM MERCHANDISE COMPLAINT ADJUSTER Brittnee Blackwell MD LAB BLOOD ORDERABLES Fi nal Result Performing Organization Address [facility] Co de Phone Number ALICE [phone] Rebecca Gurrola Department [place] [address] * (ABNORMAL) Iron profile w/ IBC (03/12/2024 11:25 AM MERCHANDISE COMPLAINT ADJUSTER) [facility] Iron 37 35 - 145 mcg/dl TIBC 200(L) 250 - 400 mcg/dL [facility] Transferrin saturation 19(L) 20 - 50 % [facility] Blood 03/12/2024 11:2 5 AM MERCHANDISE COMPLAINT ADJUSTER 03/12/2024 8:18 PM MERCHANDISE COMPLAINT ADJUSTER Crissy Mcadams NP LAB BLOOD ORDERABLES Fi nal Result Performing Organization Address [facility] de Phone Number [facility] [address] Rebecca Gurrola Department [place] [address] * (ABNORMAL) Protein / creatinine ratio, urine, random (03/12/2024 11:25 AM MERCHANDISE COMPLAINT ADJUSTER) [facility] Protein, ur, quant 196.5 mg/dL Comment: Interpretive Data No reference range established. Current interpretive data was last revised 2018. Creatinine Ur 164.2 mg/dL [facility] Comment: Interpretive Data No reference range established. Current interpretive data was last revised 2018. Protein/creatinin e ratio 1,196.7(H ) 0.0 - 180.0 mg/g CR [facility] Urine 03/12/2024 11:2 5 AM MERCHANDISE COMPLAINT ADJUSTER 03/12/2024 8:38 PM MERCHANDISE COMPLAINT ADJUSTER Brittnee Blackwell MD LAB URINE ORDERABLES Fi nal Result Performing Organization Address [facility] Co de Phone Number [facility] [address] Rebecca Gurrola Department [place] [address] * (ABNORMAL) Vitamin D 25 hydroxy (03/12/2024 11:25 AM MERCHANDISE COMPLAINT ADJUSTER) Vitamin D 25-OH 28(L) 30 - 80 ng/mL Blood 03/12/2024 11:2 5 AM MERCHANDISE COMPLAINT ADJUSTER 03/12/2024 8:18 PM MERCHANDISE COMPLAINT ADJUSTER Brittnee Blackwell MD LAB BLOOD ORDERABLES Fi nal Result Performing Organization Address City/[facility] Co de Phone Number ALICE [address] Rebecca Gurrola [facility] [place] [address] * Erythrocyte sedimentation rate (03/12/2024 11:25 AM MERCHANDISE COMPLAINT ADJUSTER) Pathologist [facility] Erythrocyte sedimentation rate 16 1 - 30 mm/hr Blood 03/12/2024 11:2 5 AM MERCHANDISE COMPLAINT ADJUSTER 03/12/2024 8:18 PM MERCHANDISE COMPLAINT ADJUSTER Crissy Mcadams NP LAB BLOOD ORDERABLES Fi nal Result Performing Organization Address [facility] Co de Phone Number ALICE [address] Rebecca Gurrola [facility] [place] [address] * (ABNORMAL) CRP (acute phase) (03/12/2024 11:25 AM MERCHANDISE COMPLAINT ADJUSTER) Pathologist [facility] CRP 18.4(H) <=10.0 mg/L Blood 03/12/2024 11:2 5 AM MERCHANDISE COMPLAINT ADJUSTER 03/12/2024 8:18 PM MERCHANDISE COMPLAINT ADJUSTER Crissy Mcadams DIGITAL MEDIA INTERN LAB BLOOD ORDERABLES Fi nal Result Performing Organization Address City/[facility] Co de Phone Number [facility] [address] Rebecca Gurrola [facility] [place] [address] * Vitamin B12 (03/12/2024 11:25 AM MERCHANDISE COMPLAINT ADJUSTER) Pathologist [facility] Vitamin B12 545 230 - 1,250 pg/mL Blood 03/12/2024 11:2 5 AM MERCHANDISE COMPLAINT ADJUSTER 03/12/2024 8:18 PM MERCHANDISE COMPLAINT ADJUSTER Crissy Mcadams NP LAB BLOOD ORDERABLES Fi nal Result ALICE WATT [address] Rebecca Gurrol[place] [address] * (ABNORMAL) Renal function panel (03/12/2024 11:25 AM MERCHANDISE COMPLAINT ADJUSTER) Sodium 144 135 - 145 mmol/L Potassium, [...] g/dL CERNER Blood 03/12/2024 11:2 5 AM MERCHANDISE COMPLAINT ADJUSTER 03/12/2024 8:18 PM MERCHANDISE COMPLAINT ADJUSTER Brittnee Blackwell MD LAB BLOOD ORDERABLES Fi nal Result ALICE WATT [address] Rebecca Gurrola Department [employer] [place], [place] [id number] * POCT hemoglobin A1c (10/25/2023 9:17 AM [...] Most Recently Relevant to Health Maintenance Insurance [facility] ACCESS CHOICE ANTHEM ACCESS CHOICE Care Teams Section 8 Property Manager Relationship Specialty Start Date End Date Cheikh Ackerman MD [address] [place] [address] PCP - General 06/11/16 Pepe Nicole MD [address] [place] [address] Referring Physician Nephrology 04/24/20 Francisco Javier Uriostegui MD [address] [place], [place] [phone] Consulting Physician Cardiology 11/22/22
--- OUTSIDE RECORDS SUMMARY | 2024-05-19 17:52 | XMS_ITS | Clinical Summary ---
Author Organization [facility] Address [address] [place] [address] Care Team Providers Care Auto Servicer Name Role Phone David Euceda Primary Care Provider [phone] Allergies Active Allergy Reactions Criticality Noted Date [...] on file Legal Sex Female 5:38 PM SOFTWARE DEVELOPMENT TEST ENGINEER Gender Identity Not on file Sexual Orientation Not on file Last Filed Vital Signs Vital Sign Reading Time Taken Comments Blood Pressure 152/90 04/21/2021 4:02 PM SOFTWARE DEVELOPMENT TEST ENGINEER Pulse 78 04/21/2021 4:02 PM SOFTWARE DEVELOPMENT TEST ENGINEER Temperature 37.1 C (98.7 F) 04/21/2021 4:02 PM SOFTWARE DEVELOPMENT TEST ENGINEER Respiratory Rate 18 04/21/2021 4:02 PM SOFTWARE DEVELOPMENT TEST ENGINEER Oxygen Saturation 98% 04/21/2021 4:02 PM SOFTWARE DEVELOPMENT TEST ENGINEER Inhaled Oxygen Concentration - - Weight 91.2 kg (201 lb) 04/21/2021 4:02 PM SOFTWARE DEVELOPMENT TEST ENGINEER Height 165.1 cm (5' 5 ) 04/21/2021 4:02 PM SOFTWARE DEVELOPMENT TEST ENGINEER Body Mass Index 33.45 04/21/2021 4:02 PM SOFTWARE DEVELOPMENT TEST ENGINEER Plan of Treatment Health Maintenance Due Date [...] PAPILLOMAVIRUS, HIGH-RISK TYPES Routine 04/21/2021 12:00 PM SOFTWARE DEVELOPMENT TEST ENGINEER CYTOPATH CERV/VAG THIN LAYER Routine 04/21/2021 8:03 AM SOFTWARE DEVELOPMENT TEST ENGINEER from Last 3 Months or Most Recently Relevant to Health Maintenance Results * HUMAN PAPILLOMAVIRUS, HIGH-RISK TYPES (04/21/2021 12:00 PM SOFTWARE DEVELOPMENT TEST ENGINEER) SPEC DESCRIPTION CERVICAL/END OCERVICAL 04/23/2021 9:25 AM SOFTWARE DEVELOPMENT TEST ENGINEER [facility] HPV DNA HIGH RISK NEGATIVE NEGATIVE 04/24/2021 11:54 AM SOFTWARE DEVELOPMENT TEST ENGINEER [facility] Comment:SEE CYTOLOGY REPORT 04/21/2021 12:0 0 PM SOFTWARE DEVELOPMENT TEST ENGINEER David GÓMEZ PATHOLOGY/CYTOLOGY ORDERABLE S Final Result [facility] [address] [place] [address], * Cytopath Cerv/Vag Thin Layer (04/21/2021 8:03 AM SOFTWARE DEVELOPMENT TEST ENGINEER) THIN PREP PAP [facility] [address] [place] [address] Department of Pathology Pathology Report CERVICAL/VAGINAL PAP SMEAR REPORT Name: ROSANNE SIDHU Age: 2 1965 (Age: 55) Location: [facility] Sex: F Collected Date: 04/21/2021 [facility] #: [id number] Date Received: 04/23/2021 Date Reported: 04/28/2021 Provider: [...] is not effective in detecting cervical adenocarcinoma. [facility] 04/21/2021 8:03 AM SOFTWARE DEVELOPMENT TEST ENGINEER 04/23/2021 8:03 AM SOFTWARE DEVELOPMENT TEST ENGINEER Comment:CERVICAL/ENDOCERVICA L us David GÓMEZ PATHOLOGY/CYTOLOGY ORDERABLE S Final Result [facility] [address] [place] [address], from Last 3 Months or Most Recently Relevant to Health Maintenance Insurance [facility] Care Teams Auto Servicer Relationship Specialty [place] [address] [place] [address] PCP - General PHYSICIAN ENGINEERING AGENT 04/08/21
--- OUTSIDE RECORDS SUMMARY | 2024-05-19 17:52 | XMS_ITS | Continuity of Care Document ---
Author Organization [facility] Address [address] [place] [address] utive [facility] [address] [place] [address] Phone Care Team Providers Care World Renowned Chef And Restaurant Owner Name Role Phone Brooke Amador Unavailable Unavailable Procedures Procedure Date Eye Exam, New Patient Advance Directives Directive Yes / No Effective Date File Name No Information Encounters Encounter Description Practice Location Reason(s) For Visit Diagnoses Date Provider Providers Copied on Encounter [facility], [address] [place] [address] [address], [place], [place], [id number], [place] tel:[phone] [facility] No Information 8-[address] Marjorie Cox. [address], [place], [address], [place]. tel:[phone] Family History Family Member Type Diagnosis Age [...]
--- OUTSIDE RECORDS SUMMARY | 2024-05-19 17:52 | XMS_ITS | Encounter Summary ---
Author Organization [facility] Facility Care Team Providers Care Molding Manager Name Role Phone Cheikh Ackerman MD Primary Care Prov ider Cheikh Ackerman MD Primary Care Prov ider Cheikh Ackerman MD Primary Care Prov ider Pepe Nicole MD Unavailable [phone] Francisco Javier Uriostegui MD Unavailable Encounter Details Date Type Department Care Team (Latest Contact Info) Description 03/04/2016 Orders Only [facility] ProviderYohan MD [address] [place] [address] Social History Tobacco Use Types Packs/Day Years Used Date Smoking Tobacco: Never Assessed Comments Unknown Sex and Gender Information Value Date Recorded Sex Assigned at Not on file Legal Sex Female 11:58 PM AUTOMATIC HEAD SAWYER Gender Identity Female 04/03/2018 2:53 PM AUTOMATIC HEAD SAWYER Sexual Orientation Not on file documented as of this encounter Plan of Treatment Not on file documented as of this encounter Procedures Procedure Name Priority Date/Time Associated Diagnosis Comments SCAN - LABS 03/04/2016 12:00 AM AUTOMATIC HEAD SAWYER documented in this encounter Results * SCAN - LABS (03/04/2016 12:00 AM AUTOMATIC HEAD SAWYER) Narrative 03/04/2016 12:00 AM AUTOMATIC HEAD SAWYER Ordered by an unspecified provider. us Historical Provider Final Res ult documented in this encounter Visit Diagnoses Not on filedocumented in this encounter Care Teams Molding Manager Relationship Specialty Start Date End Date Cheikh Ackerman MD [address] [place] [address] PCP - General 06/11/16 Cheikh Ackerman MD [address] [place] [address] PCP - General 05/04/16 06/10/16 Cheikh Ackerman MD [address] [place] [address] PCP - General 04/25/06 05/03/16 Pepe Nicole MD [address] [place] [address] Referring Physician Nephrology 04/24/20 Francisco Javier Uriostegui MD [address] [facility] [address] [place] [address] Consulting Physician Cardiology 11/22/22 documented as of this encounter
--- OUTSIDE RECORDS SUMMARY | 2024-05-19 17:52 | XMS_ITS | Referral Summary ---
Author Organization [facility] Address [address] [place] [address] Care Team Providers Care Core Measures Abstractor Name Role Phone Vanessa Cardoso MD Primary Care Provider [phone] Source Comments [facility],non-owned Affiliates and Associated Physician Practices is amultiple site organization consisting of ambulatory clinics and hospital sitesin [place], [place], [place] and [place]. This disclosure is being madepursuant to the Care Everywhere program and may not contain all information available regarding this patient. Last updated 17.[facility] Social History Tobacco Use Types Packs/Day Years Used Date Smoking Tobacco: Never Assessed Sex and Gender Information Value Date Recorded Sex Assigned at Not on file Gender Identity Not on file Sexual Orientation Not on file Plan of Treatment Not on file Care Teams Core Measures Abstractor Relationship Specialty Start Date End Date Vanessa Cardoso MD [address] [place] [address] PCP - General 01/09/21
--- OUTSIDE RECORDS SUMMARY | 2024-05-19 17:52 | XMS_ITS | Encounter Summary ---
Author Organization [facility] Address [address] [place] [address] Phone Care Team Providers Care Technical Advisor Name Role Phone Cheikh Ackerman MD Primary [...] on file Legal Sex Female 11:58 PM CAUSTICS LOADER Gender Identity Female 04/03/2018 2:53 PM CAUSTICS LOADER Sexual Orientation Not on file documented as [...] on filedocumented in this encounter Care Teams Technical Advisor Relationship Specialty Start Date End Date Cheikh Ackerman MD [address] [place] [address] PCP - General 06/11/16 Pepe Nicole MD [address] [place] [address] Referring Physician Nephrology 04/24/20 Francisco Javier Uriostegui MD [address] [facility] [address] [place] [address] Consulting Physician Cardiology 11/22/22 documented as of this encounter
--- OUTSIDE RECORDS SUMMARY | 2024-05-19 17:52 | XMS_ITS | Encounter Summary ---
Author Organization [facility] Address [address] [address] Care Team Providers Care Synthetic Chemist Name Role Phone Cheikh Ackerman MD Primary Care Prov ider Cheikh Ackerman MD Primary Care Prov ider Cheikh Ackerman MD Primary Care Prov ider Pepe Nicole MD Unavailable [phone] Francisco Javier Uriostegui MD Unavailable Encounter Details Date Type Department Care Team (Late st Contact Info) Description 10/08/2015 Orders Only [facility] Provider, MD Yohan [address] [place] [address] Social History Tobacco Use Types Packs/Day Years Used Date Smoking Tobacco: Never Assessed Comments Unknown Sex and Gender Information Value Date Recorded Sex Assigned at Not on file Legal Sex Female 11:58 PM STORE CLERK CASHIER Gender Identity Female 04/03/2018 2:53 PM STORE CLERK CASHIER Sexual Orientation Not on file documented as [...] on filedocumented in this encounter Care Teams Synthetic Chemist Relationship Specialty Start Date End Date Cheikh Ackerman MD [address] [place] [address] PCP - General 06/11/16 Cheikh Ackerman MD [address] [place] [address] PCP - General 05/04/16 06/10/16 Cheikh Ackerman MD [address] [place] [address] PCP - General 04/25/06 05/03/16 [place] [address] [place] [address] [address] [place] [address] Referring Physician Nephrology 04/24/20 Francisco Javier Uriostegui MD [address] [facility] [address] [facility] [address] [place] [address] Consulting Physician Cardiology 11/22/22 documented as of this encounter
--- OUTSIDE RECORDS SUMMARY | 2024-05-19 17:52 | XMS_ITS | Encounter Summary ---
Author Organization [facility] Address [address] [place] [address] Care Team Providers Care Distillery Miller Helper Name Role Phone Cheikh Ackerman MD Primary Care Prov ider Pepe Nicole MD Unavailable [phone] Francisco Javier Uriostegui MD Unavailable Reason for Referral * Injectables (Routine) - Pending Review Specialty Diagnoses / Procedures Referred By Debi hunter Referred To Contact Diagnoses Bilateral knee swelling Chronic pain of both knees Procedures Large Joint Injection w/ Ultrasound Guidance: bilateral knee Ash Godwin DO [address] [address] Phone: tel: fax: [facility] Referral ID Status Reason Start Date Expiration Date V isits Requested Visits Authorized [id number] Pending Review 05/18/2024 06/17/2025 1 1 OYEE BENEFITS DIRECTOR Reason for Visit * Reason Comments Follow-up Follow-up Encounter Details Date Type Department Care Team (Late st Contact Info) Description 05/18/2024 1:00 PM EMPLOYEE BENEFITS DIRECTOR Office Visit [facility] Sports Medicine and Primary Care at [address] [place] [address] Ash Godwin DO [address] [place] [address] Bilateral knee swelling (Primary Dx); Chronic pain [...] on file Legal Sex Female 11:58 PM EMPLOYEE BENEFITS DIRECTOR Gender Identity Female 04/03/2018 2:53 PM EMPLOYEE BENEFITS DIRECTOR Sexual Orientation Not on file documented as of this encounter Last Filed Vital Signs Vital Sign Reading Time Taken Comments Blood Pressure 117/70 05/18/2024 1:18 PM EMPLOYEE BENEFITS DIRECTOR Pulse 93 05/18/2024 1:18 PM EMPLOYEE BENEFITS DIRECTOR Temperature - - Respiratory Rate - - Oxygen Saturation - - Inhaled Oxygen Concentration - - Weight 85.7 kg (189 lb) 05/18/2024 1:18 PM EMPLOYEE BENEFITS DIRECTOR Height 165.1 cm (5' 5 ) 05/18/2024 1:18 PM EMPLOYEE BENEFITS DIRECTOR Body Mass Index 31.45 05/18/2024 1:18 PM EMPLOYEE BENEFITS DIRECTOR documented in this encounter Progress Notes * [...] before. She has been working with a inspectors and regulatory officers who will be hoping for some aspiration [...] any issues or concerns. Ash Godwin DO OYEE BENEFITS DIRECTOR documented in this encounter Procedure Notes * [...] %); 80 mg methylPREDNISolone acetate 80 mg/mL OYEE BENEFITS DIRECTOR documented in this encounter Miscellaneous Notes * Addendum Note - Amanda Austin MA - 05/18/2024 1:00 PM CSTAddended by: AMANDA AUSTIN on: 05/18/2024 02:18 PM Modules accepted: Orders OYEE BENEFITS DIRECTOR documented in this encounter Plan of Treatment Pending Results Name Type Priority Associated Diagnoses Date /Time Crystal Analysis, Body Fluid Lab Routine Bilateral knee swelling Chronic pain of both knees 05/18/2024 1:40 PM EMPLOYEE BENEFITS DIRECTOR Scheduled Orders Name Type Priority Associated Diagnoses Orde r Schedule Crystal Analysis, Body Fluid Lab Routine Bilateral knee swelling Chronic pain of both knees Expected: 05/18/2024, Expires: 05/18/2025 documented as of this encounter Procedures Procedure Name Priority Date/Time Associated Diagnosis Comments AR ARTHROCENTESIS ASPIR&/INJ MAJOR JT/BURSA W/US Routine 05/18/2024 1:00 PM EMPLOYEE BENEFITS DIRECTOR Bilateral knee swelling Chronic pain of both knees documented in this encounter Results * AR ARTHROCENTESIS ASPIR&/INJ MAJOR JT/BURSA W/US (05/18/2024 1:00 PM EMPLOYEE BENEFITS DIRECTOR) Narrative Ash Godwin DO - 05/18/2024 1:00 PM EMPLOYEE BENEFITS DIRECTOR Ash Godwin DO 05/18/2024 1:44 PM Large [...] of both knees Given 05/18/2024 1:00 PM EMPLOYEE BENEFITS DIRECTOR 5 mL lidocaine (PF) (XYLOCAINE) 20 mg/mL (2 %) preservative free injection 5 mL 5 mL, One-Time Injection, Starting on Tue05/18/24 at 1300, For 1 doseIndications:Bilateral knee swelling,Chronic pain of both knees Given 05/18/2024 1:00 PM EMPLOYEE BENEFITS DIRECTOR 5 mL methylPREDNISolone acetate (DEPO-medrol) injection 80 mg 80 mg, intra-articular, One-Time Injection, Starting on Tue05/18/24 at 1300, For 1 doseIndications:Bilateral knee swelling,Chronic pain of both knees Given 05/18/2024 1:00 PM EMPLOYEE BENEFITS DIRECTOR 80 mg methylPREDNISolone acetate (DEPO-medrol) injection 80 mg 80 mg, intra-articular, One-Time Injection, Starting on Tue05/18/24 at 1300, For 1 doseIndications:Bilateral knee swelling,Chronic pain of both knees Given 05/18/2024 1:00 PM EMPLOYEE BENEFITS DIRECTOR 80 mg documented in this encounter Care Teams Distillery Miller Helper Relationship Specialty Start Date End Date Cheikh Ackerman MD [address] [place] [address] PCP - General 06/11/16 Pepe Nicole MD [address] [place] [address] Referring Physician Nephrology 04/24/20 Francisco Javier Uriostegui MD [address] [facility] [address] [facility] [address] [place] [address] Consulting Physician Cardiology 11/22/22 documented as of this encounter
--- OUTSIDE RECORDS SUMMARY | 2024-05-19 17:52 | XMS_ITS | Encounter Summary ---
Author Organization [facility] Facility Care Team Providers Care Map Mounter Name Role Phone Cheikh Ackerman MD Primary Care Prov ider Cheikh Ackerman MD Primary Care Prov ider Cheikh Ackerman MD Primary Care Prov ider Pepe Nicole MD Unavailable [phone] Francisco Javier Uriostegui MD Unavailable Encounter Details Date Type Department Care Team (Latest Contact Info) Description 02/11/2016 Orders Only [facility] CLINCON[facility] ProviderYohan MD [address] [place] [address] Social History Tobacco Use Types Packs/Day Years Used Date Smoking Tobacco: Never Assessed Comments Unknown Sex and Gender Information Value Date Recorded Sex Assigned at Not on file Legal Sex Female 11:58 PM DIRECTOR OF HEMOPHILIA Gender Identity Female 04/03/2018 2:53 PM DIRECTOR OF HEMOPHILIA Sexual Orientation Not on file documented as of this encounter Plan of Treatment Not on file documented as of this encounter Procedures Procedure Name Priority Date/Time Associated Diagnosis Comments PROCEDURE - RESULT 02/11/2016 12 :00 AM DIRECTOR OF HEMOPHILIA documented in this encounter Results * PROCEDURE - RESULT (02/11/2016 12:00 AM DIRECTOR OF HEMOPHILIA) Narrative 02/11/2016 12:00 AM DIRECTOR OF HEMOPHILIA Ordered by an unspecified provider. us Historical Provider Final Res ult documented in this encounter Visit Diagnoses Not on filedocumented in this encounter Care Teams Map Mounter Relationship Specialty Start Date End Date Cheikh Ackerman MD [address] [place] [address] PCP - General 06/11/16 Cheikh Ackerman MD [address] [place] [address] PCP - General 05/04/16 06/10/16 Cheikh Ackerman MD [address] [place] [address] PCP - General 04/25/06 05/03/16 Pepe Nicole MD [address] [place] [address] Referring Physician Nephrology 04/24/20 Francisco Javier Uriostegui MD [address] [facility] [address] [place] [address] Consulting Physician Cardiology 11/22/22 documented as of this encounter
--- NOTE | 2024-05-19 17:53 | ECG_ITS ---
Test Date: 2024-05-19 18:10:51 Measurements Intervals [place] Rate: 74 P: 30 ME: 114 QRS: -37 QRSD: 92 T: -46 QT: 399 QTc: 444 Interpretive Statements SINUS RHYTHM WITH SHORT ME INTERVAL MARKED LEFT AXIS DEVIATION [QRS AXIS < -30] LEFT VENTRICULAR HYPERTROPHY AND ST-T CHANGE [VOLTAGE CRITERIA PLUS ST/T ABNORMALITY] ABNORMAL ECG No previous ECG available for comparison Electronically Signed On 05-20-2024 07:54:41 CDT by Ash Hill M.D.
[2024-05-19] MEDS: POTASSIUM CHLORIDE 20 MEQ ER TABLET 40 MEQ PO (18:08)
[2024-05-19 18:09] LABS: Basophils Percent Auto 0.1 % (0.2-1.2); Hematocrit 33.9 % (37.0-47.0); Hemoglobin 10.8 g/dL (12.0-15.0); Immature Granulocyte Absolute 0.02 K/mm3 (0.00-0.031); Immature Granulocyte Percent A 0.2 % (0-0.5); Lymphocytes Absolute Auto 0.88 K/mm3 (0.9-3.2); Lymphocytes Percent Auto 10.4 % (18.3-44.2); Mean Corpuscular HGB Conc 31.9 g/dl (32-36); Mean Corpuscular Hemoglobin 27.6 pg (26-34); Mean Corpuscular Volume 86.7 fl (80-100); Mean Platelet Volume 10.4 fl (7.4-10.4); Monocytes Absolute Auto 0.6 K/mm3 (0.1-0.6); Monocytes Percent Auto 6.6 % (2.6-8.5); Neutrophils Percent Auto 82.7 % (45.5-73.1); Platelet Count Result 263 k/mm3 (150-375); Red Blood Count 3.91 M/mm3 (4.2-5.4); Red Cell Distribution Width 15.5 % (11.5-14.5); White Blood Count 8.5 K/mm3 (4.5-10.0)
[2024-05-19 18:28] LABS: Alanine Aminotransferase 14 U/L (6-35); Albumin Level 3.2 g/dL (3.5-5.1); Alkaline Phosphatase 58 U/L (38-126); Anion Gap 9 mmol/L (4-12); Aspartate Amino Transferase 19 U/L (14-36); Bilirubin,Total 0.6 mg/dL (0.2-1.3); Blood Urea Nitrogen 27 mg/dL (7-17); Calcium 8.1 mg/dL (8.4-10.2); Carbon Dioxide 33 mmol/L (22-30); Chloride 97 mmol/L (98-107); Estimated CRCL calculation 29 ml/min; Estimated Glomerular Filt Rate 25; Glucose 121 mg/dL (65-110); Potassium 2.2 mmol/L (3.4-5.0); Sodium 139 mmol/L (137-145)
--- NOTE | 2024-05-19 18:30 | PC.NURSE ---
Lab called to add on ordered magnesium.
[2024-05-19 18:42] LABS: Magnesium 1.9 mg/dL (1.6-2.3)
[2024-05-19] MEDS: POTASSIUM CHLORIDE INJ 40 MEQ in SODIUM CHLORIDE 0.9% IV 500 ML 130 MEQ IVPB (19:13)
[2024-05-19] MEDS: MAGNESIUM SULF 1 GM/D5W 100 ML 1 GM/100 ML BAG IVPB (19:23)
--- NOTE | 2024-05-19 20:55 | P.HP_ITS ---
H&P: HPI History of Present Illness Date/Time: 05/19/24 20:30 Chief Complaint: Low potassium. Narrative: This is a very pleasant 59-year-old female with history of coronary artery disease, hypertension, hyperlipidemia, insulin-dependent type 2 diabetes mellitus, anemia, and chronic kidney disease who presented to the emergency department via private vehicle at the direction of her doctor after she was found to have a low potassium level. The patient provides the following history. She was taking prednisone 40 mg daily since October 2022 for a suspected diagnosis of polymyalgia rheumatica however after seeing a warhead maintenance specialist they thought that was less likely and she was started on a long taper and had her final dose of prednisone on 04/29/2024. Once she hit a dose of 5 mg today she began having significant quantities of diarrhea a day and it was at that time that she began to just feel weak overall. Now that she is completely off of the prednisone, the diarrhea has improved significantly and now she is only having 1 to 2 soft stools a day. She has nausea most mornings and frequently has dry heaves. Unfortunately she continues to feel weak all over and it is affecting her daily activities of living; for instance she frequently is unable to open a bottle of water. Two weeks ago she felt lightheaded and dizzy while walking in her driveway and fell forward onto the pavement; she does not think that she had loss of consciousness but cannot say for sure. She continues to have intermittent episodes of lightheadedness. She has muscle aches and cramps, especially in her lower legs. Due to ongoing issues, she is being followed closely by her primary doctor and disability representative. She was told by her disability representative that she had a metabolic acidosis though they did not think it was related to her kidneys and she was referred back to her doctor (she is not acidotic on labs today). Electrolytes are being monitored closely and she was once again found to have an extremely low potassium on labs drawn today and she was directed to the ED. She takes Lasix 20 mg twice daily as needed for edema and usually takes that 1 to 2 times per week though she is not on potassium supplementation with that. She has not had an increase in insulin requirement and fact her insulin use has gone down since getting off of the prednisone. She does not use albuterol. She denies vomiting and again her diarrhea is mostly gone. Adrenal insufficiency was reportedly ruled out. At the time of my evaluation she is resting comfortably and has no complaints. She denies fever, cold and flu symptoms, chest pain, pleuritic pain, shortness of breath, abdominal pain, dysuria, joint swelling, rash, focal weakness, paresthesias, visual changes, and vertigo. In the ED: Vital signs were stable on arrival. Labs were significant for a hemoglobin of 10.8, potassium 2.2, chloride 97, carbon dioxide 33, BUN 27, creatinine 2.00, calcium 8.1, magnesium 1.9, total protein 5.0, albumin 3.2. She was given potassium chloride 40 mEq p.o., potassium chloride 40 mEq IV, and magnesium sulfate 1 g IV. She is being admitted in this setting for further treatment and close monitoring of her electrolytes. Review of Systems Review of Systems: 12 systems were reviewed and are negativ e except for as per HPI. [facility] Past Medical History Medical History Anemia Bilateral primary osteoarthritis of knee Coronary artery disease Depression Anxiety Insulin dependent type 2 diabetes mellitus Hyperlipidemia Chronic kidney disease, stage 3 Myocardial infarction Essential hypertension Surgical History Surgical History History of radial keratotomy History of coronary angioplasty History of section History of cardiac catheterization (2014) History of hip surgery (2018) ORIF right hip for IT fx Family History Family History Father Family history of heart disease in male family member before age 55 Family history of coronary artery disease Hypertension Grandparent Diabetes mellitus Cerebrovascular accident Mother Family history of heart disease in male family member before age 55 Family history of arthritis Endometrial cancer Social History Social History Social History: Surrogate medical decision maker: Louis May, spouse. Code status: Full code. Smoking status: Never smoker Second hand tobacco smoke exposure: No Alcohol intake: current Substance use: never Substance use type: does not use Living arrangements: with family Additional living arrangements comments: Lives with in [place]. 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: No Agree to blood products: Yes Meds Home Medications and Allergies Home Medications ?Medication ?Instructions ?Recorded ?Confirmed ?Type clopidogrel 75 mg tablet 75 mg PO DAILY 08/01/19 04/11/24 History subcutaneous insulin pump (MiniMed #1 ea 08/03/19 04/11/24 History 630G Insulin Pump) insulin aspart U-100 100 unit/mL See Rx Instructions subcut 02/06/20 04/11/24 Rx subcutaneous solution (Novolog USEASDIRECTD 90 days #90 mL U-100 Insulin aspart) blood sugar diagnostic (Contour #150 ea 04/03/21 04/11/24 Rx Next Test Strips) cholecalciferol (vitamin D3) 25 25 mcg PO DAILY 07/22/22 04/11/24 History mcg (1,000 unit) tablet (Vitamin D3) ferrous sulfate 325 mg (65 mg 325 mg PO DAILY 07/22/22 04/11/24 History iron) tablet (FeroSul) metoprolol succinate 50 mg 50 mg PO DAILY 10/13/22 04/11/24 History tablet,extended release 24 hr lorazepam 0.5 mg tablet 0.5 mg PO DAILY PRN Anxiety #30 01/10/23 04/11/24 Rx tabs blood-glucose transmitter (Dexcom 01/29/23 04/11/24 History G6 Transmitter device) furosemide 80 mg tablet 20 mg PO BID 02/07/24 04/11/24 History losartan 50 mg tablet 50 mg PO DAILY 02/07/24 04/11/24 History tramadol 50 mg tablet See Rx Instructions PO QID PRN 02/07/24 04/11/24 Rx pain #60 tabs sertraline 100 mg tablet 100 mg PO DAILY #90 tabs 04/03/24 04/03/24 Rx prednisone 1 mg tablet 1 mg PO DAILY 04/11/24 04/11/24 History ondansetron HCl 4 mg tablet 4 mg PO Q6H PRN nausea and 05/10/24 Rx vomiting #30 tabs Allergies Allergy/AdvReac Type Severity Reaction Status Date / [facility] Allergy Severe Swelling Verified 05/19/24 17:21 of Lip/Tongue/Throat itraconazole AdvReac Mild Itching Verified 05/19/24 17:21 Lamisil AdvReac Mild Other Uncoded 05/19/24 17:21 Vital Signs Vital Signs - 24 hr 05/19/24 17:28 05/19/24 19:49 Temperature 97.5 F L Pulse Rate 80 76 Respiratory Rate 18 16 Blood Pressure 135/61 161/74 H Pulse Oximetry 96 94 Oxygen Delivery Room Air Exam Narrative: General: Well-developed, nontoxic-appearing female sitting up in bed in no acute distress. Weight: 84.4 kg. BMI: 31.0. HEENT: PERRL, EOMI. Sclera anicteric. Oral mucosa moist. Neck: Supple. Respiratory: Lungs are clear to auscultation bilaterally. Cardiovascular: Regular rate and rhythm with S1-S2. Gastrointestinal: Abdomen is soft, obese, nontender, nondistended with positive bowel sounds. Skin: Warm and dry. Extremities: No cyanosis or clubbing. Trace bilateral rocio ankle and pretibial edema. Equivocal Homans sign. Neurological: Alert. Cranial nerves 2-12 are grossly intact. No gross focal deficits to casual conversation. Psychiatric: Pleasant and cooperative with normal mood and affect. Judgment and insight intact. H&P: Results Labs Labs: Short CBC 05/19/24 Range/Units 18:04 WBC 8.5 (4.5-10.0) K/mm3 Hgb 10.8 L (12.0-15.0) g/dL Hct 33.9 L (37.0-47.0) % Plt Count 263 (150-375) k/mm3 BMP 05/19/24 18:04 Sodium 139 Potassium 2.2 L* Chloride 97 L Carbon Dioxide 33 H BUN 27 H Creatinine 2.00 H Glucose 121 H Calcium 8.1 L Liver Function 05/19/24 Range/Units 18:04 Total Bilirubin 0.6 (0.2-1.3) mg/dL AST 19 (14-36) U/L ALT 14 (6-35) U/L Alkaline Phosphatase 58 (38-126) U/L Albumin 3.2 L (3.5-5.1) g/dL Assessment and Plan Assessment and plan (1) Hypokalemia: Code(s): E87.6 - Hypokalemia Status: Acute (2) Lower extremity edema: Code(s): R60.0 - Localized edema Status: Acute (3) Essential hypertension: Code(s): I10 - Essential (primary) hypertension Status: Acute (4) Insulin dependent type 2 diabetes mellitus: Code(s): E11.9 - Type 2 diabetes mellitus without complications; Z79.4 - termite control technician (current) use of insulin Status: Acute (5) Chronic kidney disease, stage 3: Code(s): N18.30 - Chronic kidney disease, stage 3 unspecified Status: Acute (6) Anemia: Code(s): D64.9 - Anemia, unspecified Status: Acute Plan The patient presented to the emergency department for evaluation after she was found to have low potassium levels as detailed in HPI. Labs, imaging, EKG, and all reports were personally reviewed. It sounds as though she has been having recurrent issues with hypokalemia and is being followed closely by her disability representative and primary doctor. She recently finished a long prednisone taper and she reports that adrenal insufficiency was ruled out however will check a cortisol level. Her disability representative does not seem to think that it is related to her kidneys. She does take furosemide a couple of times a week for edema but has taken furosemide in much higher doses and on a daily basis without needing potassium supplementation. It is possible that she depleted her potassium stores when she had severe diarrhea. Electrolytes will be monitored closely and made replete as indicated. Hopefully her weakness and muscle cramps will improve once her potassium is within normal limits and remained stable. She has bilateral lower extremity edema and admits that her lifestyle has been quite sedentary lately due to her illness thus will obtain venous Doppler ultrasounds to rule out DVT. Blood pressures were reviewed and they are stable; check orthostatic vital signs x1. She may use her insulin pump. Initiate sliding scale insulin, Accu-Cheks, and hypoglycemic protocol. Anemia stable. Her home medications will be reviewed and resumed as appropriate. Findings and treatment plan were discussed with the patient. Questions were solicited and answered to satisfaction. The patient's medical management will be taken over by the hospitalist team in a.m. Quality VTE Prophylaxis VTE prophylaxis: pharmacologic ordered The patient has been admitted under observation status. Hospitalist MIPS Advance Care Plan I have confirmed that the patient's Advanced Care Plan is present, code status is documented, or surrogate decision maker is listed in patient medical record.: Yes Medication Reconciliation I have utilized all available resources to obtain, update and review the patients current medications (includes all prescriptions, OTC, herbals, cannabis , and nutritional supplements).: Yes
[2024-05-20] VITALS (14 sets, daily range): BP systolic 138–186; BP diastolic 68–90; PULSE 63–74; RESP 14–20; TEMP 36.3–37.1; O2SAT 92–100
[2024-05-20 03:10] LABS: Anion Gap 6 mmol/L (4-12); Blood Urea Nitrogen 26 mg/dL (7-17); Calcium 7.4 mg/dL (8.4-10.2); Carbon Dioxide 31 mmol/L (22-30); Chloride 102 mmol/L (98-107); Estimated CRCL calculation 32 ml/min; Estimated Glomerular Filt Rate 28; Glucose 133 mg/dL (65-110); Magnesium 2.2 mg/dL (1.6-2.3); Potassium 2.4 mmol/L (3.4-5.0); Sodium 139 mmol/L (137-145)
[2024-05-20] MEDS: POTASSIUM CHLORIDE INJ 40 MEQ in SODIUM CHLORIDE 0.9% IV 500 ML 130 MEQ IVPB ×2 (03:35→13:28)
[2024-05-20] MEDS: POTASSIUM CHLORIDE 20 MEQ PACKET (FOR LIQUID) 40 MEQ PO (03:38)
[2024-05-20 08:59] LABS: Glucose Point of Care 134 mg/dl (65-105)
[2024-05-20 09:10] LABS: Anion Gap 7 mmol/L (4-12); Blood Urea Nitrogen 23 mg/dL (7-17); Calcium 7.6 mg/dL (8.4-10.2); Carbon Dioxide 30 mmol/L (22-30); Chloride 105 mmol/L (98-107); Estimated CRCL calculation 33 ml/min; Estimated Glomerular Filt Rate 29; Glucose 127 mg/dL (65-110); Potassium 3.2 mmol/L (3.4-5.0); Sodium 142 mmol/L (137-145)
[2024-05-20] MEDS: ENOXAPARIN 40 MG/0.4 ML SYRINGE SUB-Q (09:43)
--- NOTE | 2024-05-20 11:20 | PC.NURSE ---
PT has insulin pump in place and would prefer to keep it in
[2024-05-20 12:28] LABS: Glucose Point of Care 148 mg/dl (65-105)
--- NOTE | 2024-05-20 12:59 | P.PNIM_ITS ---
Progress Note: A&P Assessment and Plan (1) Hypokalemia: Code(s): E87.6 - Hypokalemia Status: Acute (2) Lower extremity edema: Code(s): R60.0 - Localized edema Status: Acute (3) Essential hypertension: Code(s): I10 - Essential (primary) hypertension Status: Acute (4) Insulin dependent type 2 diabetes mellitus: Code(s): E11.9 - Type 2 diabetes mellitus without complications; Z79.4 - long term care pharmacist (current) use of insulin Status: Acute (5) Chronic kidney disease, stage 3: Code(s): N18.30 - Chronic kidney disease, stage 3 unspecified Status: Acute (6) Anemia: Code(s): D64.9 - Anemia, unspecified Status: Acute Plan This is a very pleasant 59-year-old female with history of coronary artery disease, hypertension, hyperlipidemia, insulin-dependent type 2 diabetes mellitus, anemia, and chronic kidney disease who presented to the emergency department via private vehicle at the direction of her doctor after she was found to have a low potassium level. She was taking prednisone 40 mg daily since October 2022 for a suspected diagnosis of polymyalgia rheumatica however after seeing a access control specialist they thought that was less likely and she was started on a long taper and had her final dose of prednisone on 04/29/2024. Once she hit a dose of 5 mg daily she began having significant quantities of diarrhea a day and it was at that time that she began to just feel weak overall. Now that she is completely off of the prednisone, the diarrhea has improved significantly and now she is only having 1 to 2 soft stools a day. She has nausea most mornings and frequently has dry heaves. Unfortunately she continues to feel weak all over and it is affecting her daily activities of living; for instance she frequently is unable to open a bottle of water. Two weeks ago she felt lightheaded and dizzy while walking in her driveway and fell forward onto the pavement; she does not think that she had loss of consciousness but cannot say for sure. She continues to have intermittent episodes of lightheadedness. She has muscle aches and cramps, especially in her lower legs. Due to ongoing issues, she is being followed closely by her primary doctor and patrol lady. She was told by her patrol lady that she had a metabolic acidosis though they did not think it was related to her kidneys and she was referred back to her doctor. Electrolytes are being monitored closely and she was once again found to have an extremely low potassium on labs drawn today and she was directed to the ED. She takes Lasix 20 mg twice daily as needed for edema and usually takes that 1 to 2 times per week though she is not on potassium supplementation with that. She has not had an increase in insulin requirement and fact her insulin use has gone down since getting off of the prednisone. She does not use albuterol. She denies vomiting and again her diarrhea is mostly gone. Adrenal insufficiency was reportedly ruled out. She denies fever, cold and flu symptoms, chest pain, pleuritic pain, shortness of breath, abdominal pain, dysuria, joint swelling, rash, focal weakness, paresthesias, visual changes, and vertigo. In the ED: Vital signs were stable on arrival. Labs were significant for a hemoglobin of 10.8, potassium 2.2, chloride 97, carbon dioxide 33, BUN 27, creatinine 2.00, calcium 8.1, magnesium 1.9, total protein 5.0, albumin 3.2. She was given potassium chloride 40 mEq p.o., potassium chloride 40 mEq IV, and magnesium sulfate 1 g IV. She is being admitted in this setting for further treatment and close monitoring of her electrolytes. severe hypokalemia with metabolic alkalosis. suspect diuretic use, ongoing chronic diarrhea. adrenal insufficiency unlikely and will lead to hyperkalemia rather. continue potassium supplementation and continue to monitor K level hold lasix. chronic diarrhea: which has now somewhat resolved. gi consultation. urine 5HIAA 24 hr pending. she might need colonscopic evaluation. will consult Gastroenterology to further evaluate. check tsh. fecal fat is normal. stool studies were negative. check esr and crp anemia: mild chronic. CKD stage 3: continue to monitor. at baseline. type 2 dm on insulin pump. continue pump, monitor accucheck and adjust as needed. polymyalgia rheumatica vs rheumaatoid arthritis ileana, tania, ccp, all negative in the past. she reports elevated crp in the past bilateral lower extremity edema; venous duplex ordered DVT proph: lovenox code status: full code Subjective Date/time seen: 05/20/24 12:59 Interval history: feels better, no new complaints. diarrhea has slowed down. had recently done some workup for this. stool studies reported to be negative. colnoscopy a year ago when the diarrhea was not an issues. dx of PMR treated with pednisone which has been tapered off by april 2024. ruled out of adrenal insufficiency. Review of Systems Review of Systems: All systems reviewed & are unremarkable except as noted in HPI and below Exam Narrative: General: Well-developed, nontoxic-appearing female sitting up in bed in no acute distress. HEENT: PERRL, EOMI. Sclera anicteric. Oral mucosa moist. Neck: Supple. Respiratory: Lungs are clear to auscultation bilaterally. Cardiovascular: Regular rate and rhythm with S1-S2. Gastrointestinal: Abdomen is soft, obese, nontender, nondistended with positive bowel sounds. Skin: Warm and dry. Extremities: No cyanosis or clubbing. Trace bilateral rocio ankle and pretibial edema. Neurological: Alert. Cranial nerves 2-12 are grossly intact. No gross focal deficits to casual conversation. Psychiatric: Pleasant and cooperative with normal mood and affect. Judgment and insight intact. Objective Data Vital Signs Vital Signs: Vital Signs - 24 hr 05/19/24 17:28 05/19/24 18:17 05/19/24 18:32 Temperature 97.5 F L Pulse Rate 80 74 73 Respiratory Rate 18 19 13 Blood Pressure 135/61 127/71 136/55 L Pulse Oximetry 96 100 95 Oxygen Delivery Room Air 05/19/24 18:47 05/19/24 19:02 05/19/24 19:17 Temperature Pulse Rate 77 73 70 Respiratory Rate 16 19 16 Blood Pressure 133/70 141/63 H 157/119 H Pulse Oximetry 93 97 92 Oxygen Delivery 05/19/24 19:32 05/19/24 19:47 05/19/24 19:49 Temperature Pulse Rate 79 73 76 Respiratory Rate 30 H 14 16 Blood Pressure 149/129 H 161/74 H 161/74 H Pulse Oximetry 94 91 94 Oxygen Delivery 05/19/24 20:02 05/19/24 20:16 05/19/24 20:31 Temperature Pulse Rate 69 72 67 Respiratory Rate 14 14 20 Blood Pressure 161/73 H 161/71 H 167/76 H Pulse Oximetry 96 95 99 Oxygen Delivery 05/19/24 20:46 05/19/24 21:01 05/19/24 21:16 Temperature Pulse Rate 70 75 72 Respiratory Rate 14 21 H 13 Blood Pressure 174/73 H 164/75 H 162/66 H Pulse Oximetry 95 93 94 Oxygen Delivery 05/19/24 21:31 05/19/24 21:46 05/19/24 21:52 Temperature Pulse Rate 73 75 73 Respiratory Rate 16 17 18 Blood Pressure 166/70 H 161/82 H 161/82 H Pulse Oximetry 93 92 99 Oxygen Delivery 05/19/24 22:01 05/19/24 22:33 05/19/24 23:11 Temperature Pulse Rate 71 64 62 Respiratory Rate 21 H 15 16 Blood Pressure 161/70 H 156/83 H 163/66 H Pulse Oximetry 95 94 91 Oxygen Delivery 05/20/24 00:03 05/20/24 01:30 05/20/24 03:39 Temperature Pulse Rate 67 63 64 Respiratory Rate 16 14 Blood Pressure 157/72 H 178/75 H Pulse Oximetry 93 92 Oxygen Delivery 05/20/24 03:39 05/20/24 03:50 05/20/24 03:53 Temperature Pulse Rate 70 72 Respiratory Rate 20 Blood Pressure 186/79 H 161/70 H 161/70 H Pulse Oximetry 100 Oxygen Delivery 05/20/24 07:21 05/20/24 07:26 05/20/24 09:27 Temperature Pulse Rate 69 67 67 Respiratory Rate 18 14 Blood Pressure 165/74 H 175/79 H Pulse Oximetry 96 95 Oxygen Delivery 05/20/24 11:13 05/20/24 11:30 Temperature 97.7 F 97.5 F L Pulse Rate 74 71 Respiratory Rate 18 18 Blood Pressure 151/68 H 150/75 H Pulse Oximetry 95 93 Oxygen Delivery Intake/Output Intake/Output: Intake & Output 05/17/24 05/18/24 05/19/24 05/21/24 23:59 23:59 23:59 00:59 Intake Total 620 520 Balance 620 520 Meds/Results Medications: Active Medications Generic Name Dose Route Start Last Admin Trade Name Freq PRN Reason Stop Dose Admin Acetaminophen 650 mg 05/20/24 00:28 Acetaminophen 325 Mg Tablet PO Q6H PRN Mild Pain (1-3) or Fever Dextrose 12.5 gm 05/20/24 00:28 Dextrose 50% 25 Gm/50 Ml Syringe IV PUSH PRN PRN Hypoglycemia Protocol Enoxaparin Sodium 40 mg 05/20/24 09:00 05/20/24 09:43 Enoxaparin 40 Mg/0.4 Ml Syringe SUB-Q 40 mg DAILY LAQUITA Administration Glucagon 1 mg 05/20/24 00:28 Glucagon For Inj 1 Mg Vial IM PRN PRN Hypoglycemia Protocol Glucose 15 gm 05/20/24 00:28 Glucose Oral Gel 15 Gm Of Glucse In 37.5 Gm Tube PO PRN PRN Hypoglycemia Protocol Dextrose 1,000 mls @ 100 mls/hr 05/20/24 00:28 Dextrose 5% 1,000 Ml IVPB PRN PRN Hypoglycemia Protocol Potassium Chloride 40 meq/ 520 mls @ 130 mls/hr 05/20/24 13:00 Sodium Chloride IVPB 05/20/24 16:59 ONCE ONE Insulin Aspart 3 - 6 units 05/20/24 08:00 05/20/24 12:51 Insulin Aspart (*Bkc) 100 Units/Ml SUB-Q Not Given [facility] Protocol Insulin Aspart 1 - 3 units 05/20/24 21:00 Insulin Aspart (*Bkc) 100 Units/Ml SUB-Q HS [facility] Protocol Labs Labs: Laboratory Results - last 24 hr 05/19/24 05/20/24 05/20/24 18:04 01:49 08:53 WBC 8.5 RBC 3.91 L Hgb 10.8 L Hct 33.9 L MCV 86.7 MCH 27.6 MCHC 31.9 L RDW 15.5 H Plt Count 263 MPV 10.4 Immature Gran % (Auto) 0.2 Neut % (Auto) 82.7 H Lymph % (Auto) 10.4 L [place] % (Auto) 6.6 Eos % (Auto) 0.0 Baso % (Auto) 0.1 L Lymph # (Auto) 0.88 L [place] # (Auto) 0.6 Eos # (Auto) 0.0 Baso # (Auto) 0.0 Abs Immat Gran (auto) 0.02 Absolute Neuts (auto) 7.0 H Absolute Nucleated RBC 0.000 Nucleated RBC % 0.0 Sodium 139 139 142 Potassium 2.2 L* 2.4 L* 3.2 L Chloride 97 L 102 105 Carbon Dioxide 33 H 31 H 30 Anion Gap 9 6 7 BUN 27 H 26 H 23 H Creatinine 2.00 H 1.85 H 1.77 H Estim Creat Clear Calc 29 32 33 Estimated GFR 25 L 28 L 29 L Glucose 121 H 133 H 127 H POC Capillary Glucose Calcium 8.1 L 7.4 L 7.6 L Magnesium 1.9 2.2 Total Bilirubin 0.6 AST 19 ALT 14 Alkaline Phosphatase 58 Total Protein 5.0 L Albumin 3.2 L Random Cortisol 4.10 05/20/24 05/20/24 08:57 12:11 WBC RBC Hgb Hct MCV MCH MCHC RDW Plt Count MPV Immature Gran % (Auto) Neut % (Auto) Lymph % (Auto) [place] % (Auto) Eos % (Auto) Baso % (Auto) Lymph # (Auto) [place] # (Auto) Eos # (Auto) Baso # (Auto) Abs Immat Gran (auto) Absolute Neuts (auto) Absolute Nucleated RBC Nucleated RBC % Sodium Potassium Chloride Carbon Dioxide Anion Gap BUN Creatinine Estim Creat Clear Calc Estimated GFR Glucose POC Capillary Glucose 134 H 148 H Calcium Magnesium Total Bilirubin AST ALT Alkaline Phosphatase Total Protein Albumin Random Cortisol
[2024-05-20 13:09] LABS: Iron 50 ug/dL (37-170)
[2024-05-20 13:13] LABS: CRP 3.9 mg/dL (<1.0)
[2024-05-20 13:19] LABS: Percent Iron Saturation 33 % (20-50)
[2024-05-20] MEDS: SODIUM CHLORIDE 0.9% IV 500 ML 50 ML (13:25)
[2024-05-20 14:21] LABS: Folic Acid 7.4 ng/mL (2.76->20)
--- NOTE | 2024-05-20 14:27 | ADMGEN ---
This patient, Rosanne May, was admitted to 3 [facility] Surg Room 306-01. Patient oriented to hospital policies and general routines including ID bracelet, bed and alarms, visiting hours, pain management, procedures, bathroom and other care routines, personal items, smoking policy, room service/diet, and visiting hours. Information on how to activate the Rapid Response Team has been discussed. Patient/Family are encouraged to report perceived risks to care and to ask questions if they do not understand what they are told or what they should do. CGM and pump form filled out and signed, MD notified, worksheet on white board. brining in new cartridge this evening.
[2024-05-20 15:59] LABS: Erythrocyte Sedimentation Rate 25 mm/hr (0-20)
[2024-05-20 17:24] LABS: Glucose Point of Care 123 mg/dl (65-105)
[2024-05-20] MEDS: METOPROLOL SUCCINATE EXT REL 50 MG TABCR PO (21:08)
[2024-05-20 21:18] LABS: Glucose Point of Care 117 mg/dl (65-105)
[2024-05-20] MEDS: LOSARTAN POTASSIUM 50 MG TABLET PO (21:50)
[2024-05-21] VITALS (9 sets, daily range): BP systolic 129–158; BP diastolic 54–82; PULSE 60–71; RESP 16–18; TEMP 36–37.3; O2SAT 92–98; BMI 32.8
[2024-05-21 05:45] LABS: Basophils Percent Auto 0.2 % (0.2-1.2); Hematocrit 32.6 % (37.0-47.0); Immature Granulocyte Absolute 0.04 K/mm3 (0.00-0.031); Immature Granulocyte Percent A 0.6 % (0-0.5); Lymphocytes Absolute Auto 0.75 K/mm3 (0.9-3.2); Lymphocytes Percent Auto 11.8 % (18.3-44.2); Mean Corpuscular HGB Conc 30.7 g/dl (32-36); Mean Corpuscular Hemoglobin 27.6 pg (26-34); Mean Corpuscular Volume 90.1 fl (80-100); Mean Platelet Volume 10.5 fl (7.4-10.4); Monocytes Absolute Auto 0.4 K/mm3 (0.1-0.6); Neutrophils Absolute Auto 5.1 K/mm3 (1.3-6.7); Neutrophils Percent Auto 80.4 % (45.5-73.1); Platelet Count Result 245 k/mm3 (150-375); Red Blood Count 3.62 M/mm3 (4.2-5.4); Red Cell Distribution Width 15.6 % (11.5-14.5); White Blood Count 6.3 K/mm3 (4.5-10.0)
[2024-05-21 05:58] LABS: Alanine Aminotransferase 10 U/L (6-35); Albumin Level 2.9 g/dL (3.5-5.1); Alkaline Phosphatase 52 U/L (38-126); Anion Gap 6 mmol/L (4-12); Aspartate Amino Transferase 17 U/L (14-36); Bilirubin,Total 0.5 mg/dL (0.2-1.3); Blood Urea Nitrogen 18 mg/dL (7-17); Calcium 7.7 mg/dL (8.4-10.2); Carbon Dioxide 30 mmol/L (22-30); Chloride 105 mmol/L (98-107); Estimated CRCL calculation 37 ml/min; Estimated Glomerular Filt Rate 32; Glucose 85 mg/dL (65-110); Magnesium 2.2 mg/dL (1.6-2.3); Sodium 141 mmol/L (137-145)
--- NOTE | 2024-05-21 06:55 | PC.NURSE ---
24 hour total per patient insulin pump worksheet is 26.59 units
[2024-05-21 08:35] LABS: Glucose Point of Care 95 mg/dl (65-105)
[2024-05-21] MEDS: SERTRALINE HCL 50 MG TABLET 100 MG PO (09:04)
[2024-05-21] MEDS: FERROUS SULFATE 325 MG TABLET DR BY MOUTH (09:04)
[2024-05-21] MEDS: METOPROLOL SUCCINATE EXT REL 50 MG TABCR PO (09:04)
[2024-05-21] MEDS: CHOLECALCIFEROL 1,000 UNITS TABLET 1000 UNITS PO (09:04)
[2024-05-21] MEDS: ENOXAPARIN 40 MG/0.4 ML SYRINGE SUB-Q (09:05)
[2024-05-21] MEDS: CLOPIDOGREL BISULFATE 75 MG TABLET PO (09:05)
[2024-05-21] MEDS: LOSARTAN POTASSIUM 50 MG TABLET PO (09:05)
[2024-05-21] MEDS: POTASSIUM CHLORIDE INJ 40 MEQ in SODIUM CHLORIDE 0.9% IV 500 ML 130 MEQ IVPB (09:09)
[2024-05-21] MEDS: ACETAMINOPHEN 325 MG TABLET 650 MG PO (11:42)
[2024-05-21] MEDS: POTASSIUM CHLORIDE 20 MEQ ER TABLET 40 MEQ PO (11:42)
[2024-05-21 12:06] LABS: Glucose Point of Care 109 mg/dl (65-105)
--- NOTE | 2024-05-21 12:23 | P.CONGI_ITS ---
<Statement entered by Henrik Montoya MD - 05/21/24 18:12> I, Henrik Montoya MD, have provided a substantive portion of the care of this patient and discussed the patient with my Nurse Practitioner. I have reviewed any new relevant radiographic and laboratory results including medications. I agree with her documentation as noted below.?I personally performed the medical decision making and much of the history and exam for this encounter. briefly, here with diarrhea and after she was found to have hypokalemia as outpatient, advised to come to ER. She had colonoscopy 2022 with only polyp, no obvious colitis. She has been on prednisone for almost 18 months after diagnosed with PMR, after long weaning process she noted new onset of diarrhea few months ago after she lowered dose to 5 mg (she has been off steroid for almost a month now). Also some nausea. Plan is egd and colonoscopy tomorrow (will assess for celiac, microscopic colitis), stool studies pending. K is repleted and better. Assessment and Plan Assessment and plan (1) Chronic diarrhea: Code(s): K52.9 - Noninfective gastroenteritis and colitis, unspecified < Susy Sigala APRN - Last Filed: 05/21/24 12:49> Status: Acute <Susy Sigala APRN - Last Filed: 05/21/24 12:49> (2) Nausea: Code(s): R11.0 - Nausea <Susy Sigala APRN - Last Filed: 05/21/24 12:49> Status: Acute <Susy Sigala APRN - Last Filed: 05/21/24 12:49> (3) Anemia of chronic disease: Code(s): D63.8 - Anemia in other chronic diseases classified elsewhere < Susy Sigala APRN - Last Filed: 05/21/24 12:49> Status: Acute <Susy Sigala APRN - Last Filed: 05/21/24 12:49> (4) Hypokalemia: Code(s): E87.6 - Hypokalemia <Susy Sigala APRN - Last Filed: 05/21/24 12:49> Status: Acute <Susy Sigala KENNY - Last Filed: 05/21/24 12:49> Assessment and Plan: 1. Chronic diarrhea: Last colonoscopy 08/06/2022 at which time she had tubular adenomatous colon polyps removed and was also noted to have diverticulosis and internal hemorrhoids. No random biopsies were done during colonoscopy which would have helped to exclude microscopic colitis. Patient states that when colonoscopy was performed she was not experiencing diarrhea at that time as she had not started prednisone. Patient's diarrhea started was near completion of her prednisone taper. She states during her worst days she was having 8-10 large volume liquid bowel movements that were typically postprandial. Recently her bowel movements have become less frequent and slightly more formed but she is still having 2-3 loose to liquid postprandial bowel movements per day. She states that if she skips a meal the diarrhea does not occur. Prior to starting her 18 month course of prednisone she was on metformin which she thought had been contributing to her intermittent episodes of diarrhea. At that time her diarrhea was not frequent or problematic. States that her PCP recently did stool studies and ruled out infectious etiology. no recent GI imaging available. DDX: IBD versus microscopic colitis versus motility disorder versus malabsorption versus medication induced * Will check fecal calprotectin and fecal elastase, stool H pylori and celiac panel * no indication at this time for emergent endoscopic evaluation * patient to follow-up as outpatient for additional workup 2. Nausea: Patient has never had an EGD. Patient states that since she has been having nausea and dry heaves in the morning. Nausea improves but does not resolve with p.r.n. Zofran. She states that the vomiting occurs very rarely. Denies any swallowing difficulty, reflux, appetite loss or unexplained weight loss. Given that she has not been vomiting this is likely not a contributing factor to the hypoglycemia noted on admission. * Discussed additional workup as outpatient to include EGD and possible gastric emptying study * Continue Zofran as needed 3. Hypokalemia: Likely multifactorial given her history of kidney disease, diuretic use, and chronic diarrhea. The patient states that when she was on prednisone she was also taking Lasix 80 mg daily but has now changed her Lasix to as needed dosing. On admission potassium at 2.5 and today at 3.0. * primary care team to continue monitoring and correct 4. Anemia: Likely anemia of chronic disease. Labs today show HGB 10, HCT 33, MCV 90, platelets 245. Iron 50, TIBC 153, iron saturation 33%, ferritin 480, B12 and folate were normal. Patient denies any signs of active GI bleeding. * Primary care team to continue monitoring and transfuse as needed to keep HGB > 7 Thank you vert much for allowing me to share in the care of this very nice patient. This report may have been done utilizing a voice recognition system. Attempts have been made to correct errors. However, there may be uncorrected grammatical, spelling, and recognition errors present. <Susy Sigala, MEDICAL SUPPLY TECHNICIAN - Last Filed: 05/21/24 12:49> GI Consult Note Consult date/time: 05/21/24 12:23 <Susy Sigala APRN - Last Filed: 05/21/24 12:49> Reason for consult: Chronic diarrhea <Susy Sigala APRN - Last Filed: 05/21/24 12:49> HPI: This is a pleasant 59 year old female with a past medical surgical history of chronic diarrhea, CKD stage 3, diabetes, CAD, depression, anxiety, history of MA, history of cardiac catheterization 2014, HTN, , and polymyalgia rheumatica she presented to the ER room 05/19/2024 with complaints of hypokalemia and generalized weakness. GI consulted for chronic diarrhea. Patient states that and been on prednisone 40 mg daily for around 18 months that she was on for treatment of polymyalgia rheumatica. She started weaning off prednisone in February 2023 and was doing well until she got down to 5 mg daily, at which point she started having diarrhea. She had large volume liquid stools 8-10 times per day. She lost the 40 lbs she had gained on prednisone. Stool studies were negative for infection. She started having dry heaves and nausea in the mornings around 2023, to the point she could hardly keep water down. Zofran helped somewhat. She denied vomiting, abdominal pain, dysphagia, odynophagia, heartburn. Appetite was decreased as she knew eating would cause diarrhea. Bowel movements are now 2-3 times per day, soft but formed. Denies blood in stool or black stools. Reports occasional diarrhea in the past when on metformin which she no longer takes. Denies NSAID use. Takes clopidogrel daily. Maternal grandfather had esophageal cancer. ENDOSCOPY HISTORY: EGD: Patient has never had an EGD COLONOSCOPY: 08/06/[address] Edwards for CRC screening Findings: There were two 10 mm to 15 mm polyps in the sigmoid colon. There was no bleeding. The nature of the parents could not be ascertained. Multiple hot snare polypectomies were performed polyps were completely excised and retrieved Multiple medium-sized uncomplicated internal hemorrhoids seen in the rectum that were not actively bleeding A few medium send the sigmoid colon that were not actively bleeding Bx Results: Large intestine, sigmoid colon polyps, polypectomy: - Tubular adenomas LABS AND STOOL STUDIES: LABS 05/21/2024: SODIUM 141, POTASSIUM 3.0, BUN 18, CREATININE 1.62, GFR 32 WBC 6, HGB 10, HCT 33, MCV 90, PLATELETS 245 TOTAL BILIRUBIN 0.5, AST 17, ALT 10, ALKALINE PHOSPHATASE 52, ALBUMIN 2.9 CALCIUM 7.7, MAGNESIUM 2.2, B12 832, FOLATE 7.4, TSH 1.960 IRON 50, IRON SATURATION 33%, FERRITIN 480 LABS 05/19/2024 --> LABS 05/21/2024: Sodium 140 --> 141, potassium 2.5 --> 3.0, BUN 24 --> 18, creatinine 1.89 --> 1.62, GFR 27 --> 32 Triglycerides 340, cholesterol 214, LDL 43, HDL 45 WBCs 18 --> 6, HGB 12 --> 10, HCT 36 --> 33, MCV 86 --> 90, platelets 271 --> 245 Stool studies negative for infection. IMAGING: No recent GI imaging available <Susy Sigala APRN - Last Filed: 05/21/24 12:49> Review of Systems 2 Constitutional: Constitutional: Reports as per HPI <Susy Sigala APRN - Last Filed: 05/21/24 12:49> ENT: Reports as per HPI <Susy Sigala APRN - Last Filed: 05/21/24 12:49> Cardiovascular: Cardiovascular: Reports as per HPI, Denies chest pain and Denies dyspnea <Susy Sigala APRN Last Filed: 05/21/24 12:49> Respiratory: Respiratory: Denies cough and Denies dyspnea <Susy Sigala APRN Last Filed: 05/21/24 12:49> Gastrointestinal: Gastrointestinal: Reports as per HPI <Susy Sigala APRN Last Filed: 05/21/24 12:49> Musculoskeletal: Musculoskeletal: Reports as per HPI <Susy Sigala APRN Last Filed: 05/21/24 12:49> Integumentary/Breasts: Skin/Breast: Reports as per HPI <Susy Sigala APRN Last Filed: 05/21/24 12:49> Psychiatric: Psychiatric: Reports as per HPI <Susy Sigala APRN Last Filed: 05/21/24 12:49> Endocrine: Endocrine: Reports no additional endocrine complaints <Susy Sigala APRN Last Filed: 05/21/24 12:49> Hematologic/Lymphatic: Hematologic/Lymphatic: Reports no additional hematologic/lymphatic complaints <Susy Sigala APRN Last Filed: 05/21/24 12:49> [facility] Past Medical History Medical History: Medical History Anemia Bilateral primary osteoarthritis of knee Coronary artery disease Depression Anxiety Insulin dependent type 2 diabetes mellitus Hyperlipidemia Chronic kidney disease, stage 3 Myocardial infarction Essential hypertension <Susy Sigala APRN Last Filed: 05/21/24 12:49> Surgical History Surgical History: Surgical History History of radial keratotomy History of coronary angioplasty History of section History of cardiac catheterization (2015) History of hip surgery (2019) ORIF right hip for IT fx <Susy Sigala APRN Last Filed: 05/21/24 12:49> Family History Family History: Family History Father Family history of heart disease in male family member before age 55 Family history of coronary artery disease Hypertension Grandparent Diabetes mellitus Cerebrovascular accident Mother Family history of heart disease in male family member before age 55 Family history of arthritis Endometrial cancer <Susy Sigala APRN - Last Filed: 05/21/24 12:49> Social History Social History: Social History Social History: Surrogate medical decision maker: Louis May, spouse. Code status: Full code. Smoking status: Never smoker Second hand tobacco smoke exposure: No Alcohol intake: current Substance use: never Substance use type: does not use Do You Feel Safe in your Home?: Yes Lack of Transportation: No Lack of Food: Never True Current Housing: I Have Housing Concerned About Future Housing: No Difficulty Paying Gas/Electric Bills: No Difficulty Paying for Meds: No Currently Unemployed: No Education: Bachelor's Degree Difficulty w/ Childcare or Family Care: No Living arrangements: with family Additional living arrangements comments: Lives with in [place]. 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: No Agree to blood products: Yes <Susy Sigala, KENNY - Last Filed: 05/21/24 12:49> Meds Home Medications and Allergies Home medications: Home Medications ?Medication ?Instructions ?Recorded ?Confirmed ?Type clopidogrel 75 mg tablet 75 mg PO DAILY 08/01/19 05/20/24 History subcutaneous insulin pump (MiniMed #1 ea 08/03/19 05/20/24 History 630G Insulin Pump) insulin aspart U-100 100 unit/mL See Rx Instructions subcut 02/06/20 05/20/24 Rx subcutaneous solution (Novolog USEASDIRECTD 90 days #90 mL U-100 Insulin aspart) cholecalciferol (vitamin D3) 25 25 mcg PO DAILY 07/22/22 05/20/24 History mcg (1,000 unit) tablet (Vitamin D3) ferrous sulfate 325 mg (65 mg 325 mg PO DAILY 07/22/22 05/20/24 History iron) tablet (FeroSul) metoprolol succinate 50 mg 50 mg PO DAILY 10/13/22 05/20/24 History tablet,extended release 24 hr lorazepam 0.5 mg tablet 0.5 mg PO DAILY PRN Anxiety #30 01/10/23 05/20/24 Rx tabs blood-glucose transmitter (Dexcom 01/29/23 05/20/24 History G6 Transmitter device) furosemide 80 mg tablet 20 mg PO BID 02/07/24 05/20/24 History losartan 50 mg tablet 50 mg PO DAILY 02/07/24 05/20/24 History tramadol 50 mg tablet See Rx Instructions PO QID PRN 02/07/24 05/20/24 Rx pain #60 tabs sertraline 100 mg tablet 100 mg PO DAILY #90 tabs 04/03/24 05/20/24 Rx ondansetron HCl 4 mg tablet 4 mg PO Q6H PRN nausea and 05/10/24 05/20/24 Rx vomiting #30 tabs nystatin 100,000 unit/gram topical 1 applic topical QID 05/20/24 05/20/24 History powder (Klayesta) <Susy Sigala APRN - Last Filed: 05/21/24 12:49> Allergies/Adverse reactions: Allergies Allergy/AdvReac Type Severity Reaction Status Date / Time levofloxacin (From [facility]) Allergy Severe Swelling Verified 05/19/24 17:21 of Lip/Tongue/Throat itraconazole AdvReac Mild Itching Verified 05/19/24 17:21 Lamisil AdvReac Mild Other Uncoded 05/19/24 17:21 <Susy Sigala APRN - Last Filed: 05/21/24 12:49> Vital Signs Vital Signs - 24 hr 05/20/24 14:01 05/20/24 20:00 05/20/24 20:00 Temperature 97.3 F L Pulse Rate 73 67 Respiratory Rate 17 Blood Pressure 138/79 Pulse Oximetry 99 Oxygen Delivery Room Air 05/20/24 20:10 05/20/24 22:40 05/21/24 00:00 Temperature 98.7 F Pulse Rate 67 60 Respiratory Rate 18 Blood Pressure 172/75 H 170/90 H Pulse Oximetry 96 Oxygen Delivery 05/21/24 03:45 05/21/24 04:00 Temperature 99.1 F Pulse Rate 66 63 Respiratory Rate 18 Blood Pressure 154/82 H Pulse Oximetry 92 Oxygen Delivery <Susy Sigala APRN - Last Filed: 05/21/24 12:49> Exam 2 Const: General: cooperative, healthy appearing, comfortable, no acute distress and well developed <Susyrosalina Sigala APRN - Last Filed: 05/21/24 12:49> Orientation/consciousness: oriented to person, oriented to place, oriented to time and patient oriented x3 <Susy D. NatyKENNY de la o Last Filed: 05/21/24 12:49> HENMT: Head: normal to inspection, normocephalic and atraumatic <Susyrosalina Sigala APRN - Last Filed: 05/21/24 12:49> Mouth: Yes Normal oral and palatal mucosa present and Yes moist mucous membranes <Susy Lorin Sigala APRN - Last Filed: 05/21/24 12:49> Eyes: General: appearance normal, both eyes and all related structures < Susyrosalina Sigala APRN Last Filed: 05/21/24 12:49> Conjunctivae: conjunctivae normal <Susyrosalina Sigala APRN - Last Filed: 05/21/24 12:49> Sclera: sclerae normal <Susy Lorin Sigala APRN Last Filed: 05/21/24 12:49> Pupils: Equal, round and reactive pupils present <Susy Lorin Sigala APRN - Last Filed: 05/21/24 12:49> Neck: Neck: normal visual inspection <Susyrosalina Sigala APRN Last Filed: 05/21/24 12:49> Chest: Chest palpation & inspection: normal inspection of the chest < Susyrosalina Sigala APRN Last Filed: 05/21/24 12:49> Resp: Effort & Inspection: normal respiratory effort and able to speak in complete sentences <Susyrosalina Sigala APRN - Last Filed: 05/21/24 12:49> Auscultation: clear to auscultation bilaterally <Susy Sigala APRN - Last Filed: 05/21/24 12:49> Cardio: Jugular venous distension: no JVD <Susy Sigala APRN - Last Filed: 05/21/24 12:49> Rate: regular rate <Susy Sigala APRN - Last Filed: 05/21/24 12:49> Rhythm: regular rhythm <Susy AlfonsoKENNY de la o - Last Filed: 05/21/24 12:49> Heart sounds: S1 normal heart sound present and S2 normal heart sound present <Susy AlfonsoKENNY de la o - Last Filed: 05/21/24 12:49> GI: Inspection: normal to inspection <Susy AlfonsoKENNY de la o - Last Filed: 05/21/24 12:49> GI Palp: Yes Soft to palpation and Yes No hepatosplenomegaly present <Susy AlfonsoRIKA de la oN - Last Filed: 05/21/24 12:49> Auscultation: normal bowel sounds <Susy PiñaShruti Sigala APRN - Last Filed: 05/21/24 12:49> Rectal Exam: deferred <Susy PiñaShruti Sigala APRN - Last Filed: 05/21/24 12:49> Skin: General skin exam: normal color and no rashes or lesions noted < Susy PiñaShruti Sigala APRN - Last Filed: 05/21/24 12:49> Neuro: General: oriented to person, oriented to place, oriented to time and patient oriented x3 <Susy PiñaShruti Sigala APRN - Last Filed: 05/21/24 12:49> Cranial nerves: Yes Equal, round and reactive pupils present <Susy Padgett KENNY Sigala - Last Filed: 05/21/24 12:49> Speech: normal speech <Susy PiñaShruti Sigala APRN - Last Filed: 05/21/24 12:49> Extrem: General: normal to inspection and no clubbing, cyanosis or edema < Susy PiñaShruti Sigala APRN - Last Filed: 05/21/24 12:49> Psych: Appearance: grossly normal and well kempt <Susy PiñaShruti Sigala APRN - Last Filed: 05/21/24 12:49> Affect: normal affect <Susy PiñaShruti Sigala APRN - Last Filed: 05/21/24 12:49> Results Labs CBC & Chem 7: 05/21/24 05:09 05/21/24 05:09 <Susy PiñaShruti Sigala APRN - Last Filed: 05/21/24 12:49> Labs: Short CBC 05/21/24 Range/Units 05:09 WBC 6.3 (4.5-10.0) K/mm3 Hgb 10.0 L (12.0-15.0) g/dL Hct 32.6 L (37.0-47.0) % Plt Count 245 (150-375) k/mm3 BMP 05/21/24 05:09 Sodium 141 Potassium 3.0 L Chloride 105 Carbon Dioxide 30 BUN 18 H Creatinine 1.62 H Glucose 85 Calcium 7.7 L Liver Function 05/21/24 Range/Units 05:09 Total Bilirubin 0.5 (0.2-1.3) mg/dL AST 17 (14-36) U/L ALT 10 (6-35) U/L Alkaline Phosphatase 52 (38-126) U/L Albumin 2.9 L (3.5-5.1) g/dL <Susy Sigala APRN - Last Filed: 05/21/24 12:49>
--- NOTE | 2024-05-21 14:02 | PCDIET ---
NUTRITION CONSULT: dietitian consult for home insulin pump. Pt denies any education needs. Says she has no questions. Thanks for this consult
--- NOTE | 2024-05-21 14:34 | PM.IMPN ---
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 She was taking prednisone 40 mg daily since October 2022 for a suspected diagnosis of polymyalgia rheumatica however after seeing a customer relations specialist they thought that was less likely and she was started on a long taper and had her final dose of prednisone on 04/29/2024. Once she hit a dose of 5 mg daily she began having significant quantities of diarrhea a day and it was at that time that she began to just feel weak overall. Now that she is completely off of the prednisone, the diarrhea has improved significantly and now she is only having 1 to 2 soft stools a day. She has nausea most mornings and frequently has dry heaves. Unfortunately she continues to feel weak all over and it is affecting her daily activities of living; for instance she frequently is unable to open a bottle of water. Two weeks ago she felt lightheaded and dizzy while walking in her driveway and fell forward onto the pavement; she does not think that she had loss of consciousness but cannot say for sure. She continues to have intermittent episodes of lightheadedness. She has muscle aches and cramps, especially in her lower legs. 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 She was told by her oven laborer that she had a metabolic acidosis though they did not think it was related to her kidneys and she was referred back to her doctor. Electrolytes are being monitored closely and she was once again found to have an extremely low potassium on labs drawn today and she was directed to the ED. She takes Lasix 20 mg twice daily as needed for edema and usually takes that 1 to 2 times per week though she is not on potassium supplementation with that. She has not had an increase in insulin requirement and fact her insulin use has gone down since getting off of the prednisone. She does not use albuterol. She denies vomiting and again her diarrhea is mostly gone. Adrenal insufficiency was reportedly ruled out. She denies fever, cold and flu symptoms, chest pain, pleuritic pain, shortness of breath, abdominal pain, dysuria, joint swelling, rash, focal weakness, paresthesias, visual changes, and vertigo. In the ED: Vital signs were stable on arrival. Labs were significant for a hemoglobin of 10.8, potassium 2.2, chloride 97, carbon dioxide 33, BUN 27, creatinine 2.00, calcium 8.1, magnesium 1.9, total protein 5.0, albumin 3.2. She was given potassium chloride 40 mEq p.o., potassium chloride 40 mEq IV, and magnesium sulfate 1 g IV. She is being admitted in this setting for further treatment and close monitoring of her electrolytes. severe hypokalemia with metabolic alkalosis. suspect diuretic use, ongoing chronic diarrhea. adrenal insufficiency unlikely and will lead to hyperkalemia rather. continue potassium supplementation and continue to monitor K level hold lasix. Continue to replace and monitor chronic diarrhea: which has now somewhat resolved. gi consultation. Fecal studies. Outpatient endoscopy evaluation planned. Urine 5HIAA 24 hr pending. TSH normal. fecal fat is normal. stool studies were negative. ESR and CRP mildly elevated anemia: mild chronic. CKD stage 3: continue to monitor. at baseline. type 2 dm on insulin pump. continue pump, monitor accucheck and adjust as needed. polymyalgia rheumatica vs rheumaatoid arthritis ileana, tania, ccp, all negative in the past. she reports elevated crp in the past bilateral lower extremity edema; venous duplex negative DVT proph: lovenox code status: full code Subjective Date/time seen: 05/21/24 14:34 Interval history: No overnight events. Labs reviewed. Had 2 bowel movement today loose in consistency. GI consult reviewed. Review of Systems Review of Systems: All systems reviewed & are unremarkable except as noted in HPI and below Exam Narrative: General: Well-developed, nontoxic-appearing female sitting up in bed in no acute distress. HEENT: PERRL, EOMI. Sclera anicteric. Oral mucosa moist. Neck: Supple. Respiratory: Lungs are clear to auscultation bilaterally. Cardiovascular: Regular rate and rhythm with S1-S2. Gastrointestinal: Abdomen is soft, obese, nontender, nondistended with positive bowel sounds. Skin: Warm and dry. Extremities: No cyanosis or clubbing. Trace bilateral rocio ankle and pretibial edema. Neurological: Alert. Cranial nerves 2-12 are grossly intact. No gross focal deficits to casual conversation. Psychiatric: Pleasant and cooperative with normal mood and affect. Judgment and insight intact. Objective Data Vital Signs Vital Signs: Vital Signs - 24 hr 05/20/24 20:00 05/20/24 20:00 05/20/24 20:10 Temperature 98.7 F Pulse Rate 67 67 Respiratory Rate 18 Blood Pressure 172/75 H Pulse Oximetry 96 Oxygen Delivery Room Air 05/20/24 22:40 05/21/24 00:00 05/21/24 03:45 Temperature 99.1 F Pulse Rate 60 66 Respiratory Rate 18 Blood Pressure 170/90 H 154/82 H Pulse Oximetry 92 Oxygen Delivery 05/21/24 04:00 05/21/24 08:00 05/21/24 12:00 Temperature Pulse Rate 63 65 61 Respiratory Rate Blood Pressure Pulse Oximetry Oxygen Delivery 05/21/24 13:32 Temperature 96.8 F L Pulse Rate 71 Respiratory Rate 17 Blood Pressure 129/54 L Pulse Oximetry 92 Oxygen Delivery Intake/Output Intake/Output: Intake & Output 05/18/24 05/19/24 05/21/24 05/21/24 23:59 23:59 00:59 23:59 Intake Total 620 2270 780 Balance 620 2270 780 Meds/Results Medications: Active Medications Generic Name Dose Route Start Last Admin Trade Name Freq PRN Reason Stop Dose Admin Acetaminophen 650 mg 05/20/24 00:28 05/21/24 11:42 Acetaminophen 325 Mg Tablet PO 650 mg Q6H PRN Administration Mild Pain (1-3) or Fever Clopidogrel Bisulfate 75 mg 05/21/24 09:00 05/21/24 09:05 Clopidogrel Bisulfate 75 Mg Tablet PO 75 mg DAILY LAQUITA Administration Dextrose 12.5 gm 05/20/24 00:28 Dextrose 50% 25 Gm/50 Ml Syringe IV PUSH PRN PRN Hypoglycemia Protocol Enoxaparin Sodium 40 mg 05/20/24 09:00 05/21/24 09:05 Enoxaparin 40 Mg/0.4 Ml Syringe SUB-Q 40 mg DAILY LAQUITA Administration Ferrous Sulfate 325 mg 05/21/24 09:00 05/21/24 09:04 Ferrous Sulfate [address] BY MOUTH 325 mg DAILY LAQUITA Administration Glucagon 1 mg 05/20/24 00:28 Glucagon For Inj 1 Mg Vial IM PRN PRN Hypoglycemia Protocol Glucose 15 gm 05/20/24 00:28 Glucose Oral Gel 15 Gm Of Glucse In 37.5 Gm Tube PO PRN PRN Hypoglycemia Protocol Home Med 1 each 05/20/24 06:00 05/20/24 22:28 Home Medication XX 06/19/24 05:59 Not Given DAILY@0600 LAQUITA Dextrose 1,000 mls @ 100 mls/hr 05/20/24 00:28 Dextrose 5% 1,000 Ml IVPB PRN PRN Hypoglycemia Protocol Insulin Aspart 3 - 6 units 05/20/24 08:00 05/20/24 12:51 Insulin Aspart (*Bkc) 100 Units/Ml SUB-Q Not Given TIDWM [facility] Protocol Insulin Aspart 1 - 3 units 05/20/24 21:00 Insulin Aspart (*Bkc) 100 Units/Ml SUB-Q HS [facility] Protocol Lorazepam 0.5 mg 05/20/24 12:58 Lorazepam (*Crx) 0.5 Mg Tablet PO DAILY PRN Anxiety Losartan Potassium 50 mg 05/21/24 09:00 05/21/24 09:05 Losartan Potassium 50 Mg Tablet PO 50 mg DAILY LAQUITA Administration Metoprolol Succinate 50 mg 05/21/24 09:00 05/21/24 09:04 Metoprolol Succinate Ext Rel 50 Mg Tabcr PO 50 mg DAILY LAQUITA Administration Ondansetron HCl 4 mg 05/20/24 12:58 Ondansetron Hcl Odt 4 Mg Tablet PO Q6H PRN nausea and vomiting Sertraline HCl 100 mg 05/21/24 09:00 05/21/24 09:04 Sertraline Hcl 50 Mg Tablet PO 100 mg DAILY LAQUITA Administration Tramadol HCl 50 - 100 mg 05/20/24 12:58 Tramadol Hcl (*Crx) 50 Mg Tablet PO QID PRN moderate-severe pain Vitamin D 1,000 units 05/21/24 09:00 05/21/24 09:04 Cholecalciferol 1,000 Units Tablet PO 1,000 units DAILY LAQUITA Administration Radiology Results: ITS Impressions Venous Doppler Study 05/20/24 15:28 IMPRESSION: Patent bilateral lower extremity veins. No evidence of deep venous thrombosis. Labs Labs: Laboratory Results - last 24 hr 05/20/24 05/20/24 05/20/24 14:25 17:16 20:15 WBC RBC Hgb Hct MCV MCH MCHC RDW Plt Count MPV Immature Gran % (Auto) Neut % (Auto) Lymph % (Auto) [place] % (Auto) Eos % (Auto) Baso % (Auto) Lymph # (Auto) [place] # (Auto) Eos # (Auto) Baso # (Auto) Abs Immat Gran (auto) Absolute Neuts (auto) Absolute Nucleated RBC Nucleated RBC % ESR 25 H Sodium Potassium Chloride Carbon Dioxide Anion Gap BUN Creatinine Estim Creat Clear Calc Estimated GFR Glucose POC Capillary Glucose 123 H 117 H Calcium Magnesium Total Bilirubin AST ALT Alkaline Phosphatase Total Protein Albumin 05/21/24 05/21/24 05/21/24 05:09 08:31 11:49 WBC 6.3 RBC 3.62 L Hgb 10.0 L Hct 32.6 L MCV 90.1 MCH 27.6 MCHC 30.7 L RDW 15.6 H Plt Count 245 MPV 10.5 H Immature Gran % (Auto) 0.6 H Neut % (Auto) 80.4 H Lymph % (Auto) 11.8 L [place] % (Auto) 7.0 Eos % (Auto) 0.0 Baso % (Auto) 0.2 Lymph # (Auto) 0.75 L [place] # (Auto) 0.4 Eos # (Auto) 0.0 Baso # (Auto) 0.0 Abs Immat Gran (auto) 0.04 H Absolute Neuts (auto) 5.1 Absolute Nucleated RBC 0.000 Nucleated RBC % 0.0 ESR Sodium 141 Potassium 3.0 L Chloride 105 Carbon Dioxide 30 Anion Gap 6 BUN 18 H Creatinine 1.62 H Estim Creat Clear Calc 37 Estimated GFR 32 L Glucose 85 POC Capillary Glucose 95 109 H Calcium 7.7 L Magnesium 2.2 Total Bilirubin 0.5 AST 17 ALT 10 Alkaline Phosphatase 52 Total Protein 5.0 L Albumin 2.9 L
[2024-05-21] MEDS: ONDANSETRON HCL ODT 4 MG TABLET PO ×2 (15:40→22:00)
[2024-05-21] MEDS: BISACODYL 5 MG TABLET EC 20 MG PO (18:33)
[2024-05-21] MEDS: polyethylene glycoL 3350 238 GM BOTTLE PO (20:18)
[2024-05-21 21:29] LABS: Glucose Point of Care 100 mg/dl (65-105)
[2024-05-22] VITALS (11 sets, daily range): BP systolic 126–181; BP diastolic 48–90; PULSE 59–72; RESP 18–22; TEMP 36.4–36.9; O2SAT 97–98
[2024-05-22] MEDS: MAGNESIUM CITRATE 300 ML BTL PO (01:24)
[2024-05-22 06:35] LABS: Basophils Percent Auto 0.1 % (0.2-1.2); Hematocrit 32.3 % (37.0-47.0); Immature Granulocyte Absolute 0.04 K/mm3 (0.00-0.031); Immature Granulocyte Percent A 0.6 % (0-0.5); Lymphocytes Absolute Auto 0.83 K/mm3 (0.9-3.2); Lymphocytes Percent Auto 12.3 % (18.3-44.2); Mean Corpuscular Hemoglobin 27.9 pg (26-34); Mean Platelet Volume 9.8 fl (7.4-10.4); Monocytes Absolute Auto 0.6 K/mm3 (0.1-0.6); Monocytes Percent Auto 8.7 % (2.6-8.5); Neutrophils Absolute Auto 5.3 K/mm3 (1.3-6.7); Neutrophils Percent Auto 78.3 % (45.5-73.1); Platelet Count Result 245 k/mm3 (150-375); Red Blood Count 3.59 M/mm3 (4.2-5.4); Red Cell Distribution Width 15.4 % (11.5-14.5); White Blood Count 6.8 K/mm3 (4.5-10.0)
[2024-05-22 07:15] LABS: Alanine Aminotransferase 11 U/L (6-35); Albumin Level 2.9 g/dL (3.5-5.1); Alkaline Phosphatase 53 U/L (38-126); Anion Gap 6 mmol/L (4-12); Aspartate Amino Transferase 16 U/L (14-36); Bilirubin,Total 0.5 mg/dL (0.2-1.3); Blood Urea Nitrogen 20 mg/dL (7-17); Calcium 8.2 mg/dL (8.4-10.2); Carbon Dioxide 27 mmol/L (22-30); Chloride 106 mmol/L (98-107); Estimated CRCL calculation 40 ml/min; Estimated Glomerular Filt Rate 35; Glucose 100 mg/dL (65-110); Magnesium 2.4 mg/dL (1.6-2.3); Potassium 3.4 mmol/L (3.4-5.0); Sodium 139 mmol/L (137-145)
[2024-05-22 08:28] LABS: Glucose Point of Care 112 mg/dl (65-105)
[2024-05-22] MEDS: ONDANSETRON HCL ODT 4 MG TABLET PO (10:20)
[2024-05-22 11:47] LABS: Glucose Point of Care 84 mg/dl (65-105)
--- NOTE | 2024-05-22 13:16 | WPDANESEPPF ---
Anes - Initial Pre Proc Eval Procedure: Operation Date: 05/22/24 15:00 Proposed Procedures p Esophagogastroduodenoscopy & Colonoscopy - Henrik Montoya MD Date/Time: 05/22/24 13:16 Surgeon: Torito Smith MD Pre Op Diagnosis: hypokalemia Patient Data Age: 59 Gender: F Height: 1.65 m Weight: 92.4 kg Last Vital Signs Temp 36.9 C 05/22/24 04:15 Pulse 64 05/22/24 04:15 Resp 18 05/22/24 04:15 BP 146/82 H 05/22/24 04:15 Pulse Ox 97 05/22/24 04:15 O2 Del Method Room Air 05/21/24 20:00 Allergies Allergy/AdvReac Type Severity Reaction Status Date / Time levofloxacin (From Levaquin) Allergy Severe Swelling Verified 05/22/24 13:15 of Lip/Tongue/Throat itraconazole AdvReac Mild Itching Verified 05/22/24 13:15 Lamisil AdvReac Mild Other Uncoded 05/22/24 13:15 Home Medications ?Medication ?Instructions ?Recorded ?Confirmed ?Type clopidogrel 75 mg tablet 75 mg PO DAILY 08/01/19 05/20/24 History subcutaneous insulin pump (MiniMed #1 ea 08/03/19 05/20/24 History 630G Insulin Pump) insulin aspart U-100 100 unit/mL See Rx Instructions subcut 02/06/20 05/20/24 Rx subcutaneous solution (Novolog USEASDIRECTD 90 days #90 mL U-100 Insulin aspart) cholecalciferol (vitamin D3) 25 25 mcg PO DAILY 07/22/22 05/20/24 History mcg (1,000 unit) tablet (Vitamin D3) ferrous sulfate 325 mg (65 mg 325 mg PO DAILY 07/22/22 05/20/24 History iron) tablet (FeroSul) metoprolol succinate 50 mg 50 mg PO DAILY 10/13/22 05/20/24 History tablet,extended release 24 hr lorazepam 0.5 mg tablet 0.5 mg PO DAILY PRN Anxiety #30 01/10/23 05/20/24 Rx tabs blood-glucose transmitter (Dexcom 01/29/23 05/20/24 History G6 Transmitter device) furosemide 80 mg tablet 20 mg PO BID 02/07/24 05/20/24 History losartan 50 mg tablet 50 mg PO DAILY 02/07/24 05/20/24 History tramadol 50 mg tablet See Rx Instructions PO QID PRN 02/07/24 05/20/24 Rx pain #60 tabs sertraline 100 mg tablet 100 mg PO DAILY #90 tabs 04/03/24 05/20/24 Rx ondansetron HCl 4 mg tablet 4 mg PO Q6H PRN nausea and 05/10/24 05/20/24 Rx vomiting #30 tabs nystatin 100,000 unit/gram topical 1 applic topical QID 05/20/24 05/20/24 History powder (Klayesta) Laboratory Tests 05/21/24 05/21/24 05/22/24 16:24 20:18 06:20 WBC 6.8 K/mm3 (4.5-10.0) RBC 3.59 L M/mm3 (4.2-5.4) Hgb 10.0 L g/dL (12.0-15.0) Hct 32.3 L % (37.0-47.0) MCV 90.0 fl (80-100) MCH 27.9 pg (26-34) MCHC 31.0 L g/dl (32-36) RDW 15.4 H % (11.5-14.5) Plt Count 245 k/mm3 (150-375) MPV 9.8 fl (7.4-10.4) Immature Gran % (Auto) 0.6 H % (0-0.5) Neut % (Auto) 78.3 H % (45.5-73.1) Lymph % (Auto) 12.3 L % (18.3-44.2) [place] % (Auto) 8.7 H % (2.6-8.5) Eos % (Auto) 0.0 % (0-4.4) Baso % (Auto) 0.1 L % (0.2-1.2) Lymph # (Auto) 0.83 L K/mm3 (0.9-3.2) [place] # (Auto) 0.6 K/mm3 (0.1-0.6) Eos # (Auto) 0.0 K/mm3 (0-0.3) Baso # (Auto) 0.0 K/mm3 (0.0-0.1) Abs Immat Gran (auto) 0.04 H K/mm3 (0.00-0.031) Absolute Neuts (auto) 5.3 K/mm3 (1.3-6.7) Absolute Nucleated RBC 0.000 K/mm3 (0.0-0.012) Nucleated RBC % 0.0 % (0.0-0.2) Sodium 139 mmol/L (137-145) Potassium 3.4 mmol/L (3.4-5.0) Chloride 106 mmol/L (98-107) Carbon Dioxide 27 mmol/L (22-30) Anion Gap 6 mmol/L (4-12) BUN 20 H mg/dL (7-17) Creatinine 1.50 H mg/dL (0.7-1.0) Estim Creat Clear Calc 40 ml/min Estimated GFR 35 L (59 - ) Glucose 100 mg/dL (65-110) POC Capillary Glucose 100 mg/dl (65-105) Calcium 8.2 L mg/dL (8.4-10.2) Magnesium 2.4 H mg/dL (1.6-2.3) Total Bilirubin 0.5 mg/dL (0.2-1.3) AST 16 U/L (14-36) ALT 11 U/L (6-35) Alkaline Phosphatase 53 U/L (38-126) Total Protein 5.0 L g/dL (6.3-8.2) Albumin 2.9 L g/dL (3.5-5.1) Stool Calprotectin Pending Stool Pancreat Elastase Pending 05/22/24 05/22/24 08:15 11:31 WBC RBC Hgb Hct MCV MCH MCHC RDW Plt Count MPV Immature Gran % (Auto) Neut % (Auto) Lymph % (Auto) [place] % (Auto) Eos % (Auto) Baso % (Auto) Lymph # (Auto) [place] # (Auto) Eos # (Auto) Baso # (Auto) Abs Immat Gran (auto) Absolute Neuts (auto) Absolute Nucleated RBC Nucleated RBC % Sodium Potassium Chloride Carbon Dioxide Anion Gap BUN Creatinine Estim Creat Clear Calc Estimated GFR Glucose POC Capillary Glucose 112 H mg/dl 84 mg/dl (65-105) (65-105) Calcium Magnesium Total Bilirubin AST ALT Alkaline Phosphatase Total Protein Albumin Stool Calprotectin Stool Pancreat Elastase Patient hx anesthesia problems: none Family hx anesthesia problems: none Results Review: All pre-operative results and documents have been reviewed as part of the pre-operative evaluation. [facility] Past Medical History Medical History Anemia Bilateral primary osteoarthritis of knee Coronary artery disease Depression Anxiety Insulin dependent type 2 diabetes mellitus Hyperlipidemia Chronic kidney disease, stage 3 Myocardial infarction Essential hypertension Surgical History Surgical History History of radial keratotomy History of coronary angioplasty History of section History of cardiac catheterization (2015) History of hip surgery (2019) ORIF right hip for IT fx Family History Family History Father Family history of heart disease in male family member before age 55 Family history of coronary artery disease Hypertension Grandparent Diabetes mellitus Cerebrovascular accident Mother Family history of heart disease in male family member before age 55 Family history of arthritis Endometrial cancer Social History Social History Social History: Surrogate medical decision maker: Louis May, spouse. Code status: Full code. Smoking status: Never smoker Second hand tobacco smoke exposure: No Alcohol intake: current Substance use: never Substance use type: does not use Do You Feel Safe in your Home?: Yes Lack of Transportation: No Lack of Food: Never True Current Housing: I Have Housing Concerned About Future Housing: No Difficulty Paying Gas/Electric Bills: No Difficulty Paying for Meds: No Currently Unemployed: No Education: Bachelor's Degree Difficulty w/ Childcare or Family Care: No Living arrangements: with family Additional living arrangements comments: Lives with in [place]. 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: No Agree to blood products: Yes Anes - Eval Final PreProcedure Day of Procedure 05/22/24 13:16 Patient weight: obese Heart: regular rate and rhythm Lungs: clear to auscultation Airway: Mallampati scale class II Neurological: alert and oriented Last oral intake: >/= 8 hours ASA classification: III Emergent: no Anesthetic plan: proceed Anesthesia type and monitoring: general GIVS and standard monitoring Results Review: All pre-operative results and documents have been reviewed as part of the pre-operative evaluation. Informed Consent: The patient's anesthetic plan and its attendant risks and benefits were discussed with the patient/family/POA. Questions were solicited and answers provided to the satisfaction of the patient/family/POA.
[2024-05-22] MEDS: LACTATED RINGERS 1,000 ML 150 ML IV CONT (13:21)
--- NOTE | 2024-05-22 14:16 | SUR.OPER ---
EGD: [id number] Colon: [id number]
[2024-05-22 15:06] LABS: Glucose Point of Care 91 mg/dl (65-105)
[2024-05-22] MEDS: METOPROLOL SUCCINATE EXT REL 50 MG TABCR PO (15:06)
[2024-05-22] MEDS: SERTRALINE HCL 50 MG TABLET 100 MG PO (15:06)
[2024-05-22] MEDS: LOSARTAN POTASSIUM 50 MG TABLET PO (15:06)
[2024-05-22] MEDS: POTASSIUM CHLORIDE 20 MEQ ER TABLET 40 MEQ PO (16:15)
--- NOTE | 2024-05-22 16:35 | PM.IMPN ---
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 She was taking prednisone 40 mg daily since October 2022 for a suspected diagnosis of polymyalgia rheumatica however after seeing a solar project coordination specialist they thought that was less likely and she was started on a long taper and had her final dose of prednisone on 04/29/2024. Once she hit a dose of 5 mg daily she began having significant quantities of diarrhea a day and it was at that time that she began to just feel weak overall. Now that she is completely off of the prednisone, the diarrhea has improved significantly and now she is only having 1 to 2 soft stools a day. She has nausea most mornings and frequently has dry heaves. Unfortunately she continues to feel weak all over and it is affecting her daily activities of living; for instance she frequently is unable to open a bottle of water. Two weeks ago she felt lightheaded and dizzy while walking in her driveway and fell forward onto the pavement; she does not think that she had loss of consciousness but cannot say for sure. She continues to have intermittent episodes of lightheadedness. She has muscle aches and cramps, especially in her lower legs. Due to ongoing issues, she is being followed closely by her primary doctor and glass beveller. She was told by her glass beveller that she had a metabolic acidosis though they did not think it was related to her kidneys and she was referred back to her doctor. Electrolytes are being monitored closely and she was once again found to have an extremely low potassium on labs drawn today and she was directed to the ED. She takes Lasix 20 mg twice daily as needed for edema and usually takes that 1 to 2 times per week though she is not on potassium supplementation with that. She has not had an increase in insulin requirement and fact her insulin use has gone down since getting off of the prednisone. She does not use albuterol. She denies vomiting and again her diarrhea is mostly gone. Adrenal insufficiency was reportedly ruled out. She denies fever, cold and flu symptoms, chest pain, pleuritic pain, shortness of breath, abdominal pain, dysuria, joint swelling, rash, focal weakness, paresthesias, visual changes, and vertigo. In the ED: Vital signs were stable on arrival. Labs were significant for a hemoglobin of 10.8, potassium 2.2, chloride 97, carbon dioxide 33, BUN 27, creatinine 2.00, calcium 8.1, magnesium 1.9, total protein 5.0, albumin 3.2. She was given potassium chloride 40 mEq p.o., potassium chloride 40 mEq IV, and magnesium sulfate 1 g IV. She is being admitted in this setting for further treatment and close monitoring of her electrolytes. severe hypokalemia with metabolic alkalosis. suspect diuretic use, ongoing chronic diarrhea. adrenal insufficiency unlikely and will lead to hyperkalemia rather. continue potassium supplementation and continue to monitor K level hold lasix. Continue to replace and monitor chronic diarrhea: which has now somewhat resolved. gi consultation. Fecal studies. Undergoing EGD and colonoscopy today. Urine 5HIAA 24 hr pending. TSH normal. fecal fat is normal. stool studies were negative. ESR and CRP mildly elevated anemia: mild chronic. CKD stage 3: continue to monitor. at baseline. type 2 dm on insulin pump. continue pump, monitor accucheck and adjust as needed. polymyalgia rheumatica vs rheumaatoid arthritis ileana, tania, ccp, all negative in the past. she reports elevated crp in the past bilateral lower extremity edema; venous duplex negative DVT proph: lovenox code status: full code Subjective Date/time seen: 05/22/24 16:35 Interval history: No overnight events. Labs reviewed. Plan for EGD colonoscopy today. Review of Systems Review of Systems: All systems reviewed & are unremarkable except as noted in HPI and below Exam Narrative: General: Well-developed, nontoxic-appearing female sitting up in bed in no acute distress. HEENT: PERRL, EOMI. Sclera anicteric. Oral mucosa moist. Neck: Supple. Respiratory: Lungs are clear to auscultation bilaterally. Cardiovascular: Regular rate and rhythm with S1-S2. Gastrointestinal: Abdomen is soft, obese, nontender, nondistended with positive bowel sounds. Skin: Warm and dry. Extremities: No cyanosis or clubbing. Trace bilateral rocio ankle and pretibial edema. Neurological: Alert. Cranial nerves 2-12 are grossly intact. No gross focal deficits to casual conversation. Psychiatric: Pleasant and cooperative with normal mood and affect. Judgment and insight intact. Objective Data Vital Signs Vital Signs: Vital Signs - 24 hr 05/21/24 20:00 05/21/24 20:00 05/21/24 20:10 Temperature 99.1 F Pulse Rate 64 66 Respiratory Rate 16 Blood Pressure 158/72 H Pulse Oximetry 98 Oxygen Delivery Room Air 05/22/24 00:00 05/22/24 02:15 05/22/24 04:00 Temperature Pulse Rate 63 72 Respiratory Rate Blood Pressure 150/90 H Pulse Oximetry Oxygen Delivery 05/22/24 04:15 05/22/24 08:00 05/22/24 12:00 Temperature 98.5 F Pulse Rate 64 72 62 Respiratory Rate 18 Blood Pressure 146/82 H Pulse Oximetry 97 Oxygen Delivery 05/22/24 13:16 05/22/24 14:16 05/22/24 14:26 Temperature 98.2 F Pulse Rate 65 59 L 61 Respiratory Rate 18 20 22 H Blood Pressure 181/66 H 126/48 L 133/51 L Pulse Oximetry 98 97 97 Oxygen Delivery Room Air Room Air Room Air 05/22/24 14:36 Temperature Pulse Rate 63 Respiratory Rate 22 H Blood Pressure 147/60 H Pulse Oximetry 97 Oxygen Delivery Room Air Intake/Output Intake/Output: Intake & Output 05/19/24 05/21/24 05/21/24 05/22/24 23:59 00:59 23:59 23:59 Intake Total 620 2270 1570 1973 Balance 620 2270 1570 1973 Meds/Results Medications: Active Medications Generic Name Dose Route Start Last Admin Trade Name Freq PRN Reason Stop Dose Admin Acetaminophen 650 mg 05/20/24 00:28 05/21/24 11:42 Acetaminophen 325 Mg Tablet PO 650 mg Q6H PRN Administration Mild Pain (1-3) or Fever Clopidogrel Bisulfate 75 mg 05/21/24 09:00 05/22/24 09:57 Clopidogrel Bisulfate 75 Mg Tablet PO Not Given DAILY [facility] Dextrose 12.5 gm 05/20/24 00:28 Dextrose 50% 25 Gm/50 Ml Syringe IV PUSH PRN PRN Hypoglycemia Protocol Enoxaparin Sodium 40 mg 05/20/24 09:00 05/22/24 09:58 Enoxaparin 40 Mg/0.4 Ml Syringe SUB-Q Not Given DAILY [facility] Ferrous Sulfate 325 mg 05/21/24 09:00 05/22/24 10:03 Ferrous Sulfate [address] BY MOUTH Not Given DAILY [facility] Glucagon 1 mg 05/20/24 00:28 Glucagon For Inj 1 Mg Vial IM PRN PRN Hypoglycemia Protocol Glucose 15 gm 05/20/24 00:28 Glucose Oral Gel 15 Gm Of Glucse In 37.5 Gm Tube PO PRN PRN Hypoglycemia Protocol Home Med 1 each 05/20/24 06:00 05/22/24 01:24 Home Medication XX 06/19/24 05:59 Not Given DAILY@0600 [facility] Dextrose 1,000 mls @ 100 mls/hr 05/20/24 00:28 Dextrose 5% 1,000 Ml IVPB PRN PRN Hypoglycemia Protocol Insulin Aspart 3 - 6 units 05/20/24 08:00 05/20/24 12:51 Insulin Aspart (*Bkc) 100 Units/Ml SUB-Q Not Given TIDWM [facility] Protocol Insulin Aspart 1 - 3 units 05/20/24 21:00 Insulin Aspart (*Bkc) 100 Units/Ml SUB-Q HS [facility] Protocol Lorazepam 0.5 mg 05/20/24 12:58 Lorazepam (*Crx) 0.5 Mg Tablet PO DAILY PRN Anxiety Losartan Potassium 50 mg 05/21/24 09:00 05/22/24 15:06 Losartan Potassium 50 Mg Tablet PO 50 mg DAILY [facility] Administration Metoprolol Succinate 50 mg 05/21/24 09:00 05/22/24 15:06 Metoprolol Succinate Ext Rel 50 Mg Tabcr PO 50 mg DAILY [facility] Administration Ondansetron HCl 4 mg 05/20/24 12:58 03/11/25 10:20 Ondansetron Hcl Odt 4 Mg Tablet PO 4 mg Q6H PRN Administration nausea and vomiting Sertraline HCl 100 mg 05/21/24 09:00 05/22/24 15:06 Sertraline Hcl 50 Mg Tablet PO 100 mg DAILY [facility] Administration Tramadol HCl 50 - 100 mg 05/20/24 12:58 Tramadol Hcl (*Crx) 50 Mg Tablet PO QID PRN moderate-severe pain Vitamin D 1,000 units 05/21/24 09:00 05/22/24 09:59 Cholecalciferol 1,000 Units Tablet PO Not Given DAILY [facility] Radiology Results: ITS Impressions Venous Doppler Study 05/20/24 15:28 IMPRESSION: Patent bilateral lower extremity veins. No evidence of deep venous thrombosis. Labs Labs: Laboratory Results - last 24 hr 05/21/24 05/22/24 05/22/24 20:18 06:20 08:15 WBC 6.8 RBC 3.59 L Hgb 10.0 L Hct 32.3 L MCV 90.0 MCH 27.9 MCHC 31.0 L RDW 15.4 H Plt Count 245 MPV 9.8 Immature Gran % (Auto) 0.6 H Neut % (Auto) 78.3 H Lymph % (Auto) 12.3 L Zavala % (Auto) 8.7 H Eos % (Auto) 0.0 Baso % (Auto) 0.1 L Lymph # (Auto) 0.83 L Zavala # (Auto) 0.6 Eos # (Auto) 0.0 Baso # (Auto) 0.0 Abs Immat Gran (auto) 0.04 H Absolute Neuts (auto) 5.3 Absolute Nucleated RBC 0.000 Nucleated RBC % 0.0 Sodium 139 Potassium 3.4 Chloride 106 Carbon Dioxide 27 Anion Gap 6 BUN 20 H Creatinine 1.50 H Estim Creat Clear Calc 40 Estimated GFR 35 L Glucose 100 POC Capillary Glucose 100 112 H Calcium 8.2 L Magnesium 2.4 H Total Bilirubin 0.5 AST 16 ALT 11 Alkaline Phosphatase 53 Total Protein 5.0 L Albumin 2.9 L 05/22/24 05/22/24 11:31 14:44 WBC RBC Hgb Hct MCV MCH MCHC RDW Plt Count MPV Immature Gran % (Auto) Neut % (Auto) Lymph % (Auto) Zavala % (Auto) Eos % (Auto) Baso % (Auto) Lymph # (Auto) Zavala # (Auto) Eos # (Auto) Baso # (Auto) Abs Immat Gran (auto) Absolute Neuts (auto) Absolute Nucleated RBC Nucleated RBC % Sodium Potassium Chloride Carbon Dioxide Anion Gap BUN Creatinine Estim Creat Clear Calc Estimated GFR Glucose POC Capillary Glucose 84 91 Calcium Magnesium Total Bilirubin AST ALT Alkaline Phosphatase Total Protein Albumin
--- NOTE | 2024-05-22 16:36 | PM.DS ---
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 She was taking prednisone 40 mg daily since October 2022 for a suspected diagnosis of polymyalgia rheumatica however after seeing a resource protection specialist they thought that was less likely and she was started on a long taper and had her final dose of prednisone on 04/29/2024. Once she hit a dose of 5 mg daily she began having significant quantities of diarrhea a day and it was at that time that she began to just feel weak overall. Now that she is completely off of the prednisone, the diarrhea has improved significantly and now she is only having 1 to 2 soft stools a day. She has nausea most mornings and frequently has dry heaves. Unfortunately she continues to feel weak all over and it is affecting her daily activities of living; for instance she frequently is unable to open a bottle of water. Two weeks ago she felt lightheaded and dizzy while walking in her driveway and fell forward onto the pavement; she does not think that she had loss of consciousness but cannot say for sure. She continues to have intermittent episodes of lightheadedness. She has muscle aches and cramps, especially in her lower legs. Due to ongoing issues, she is being followed closely by her primary doctor and chemical processing technician. She was told by her chemical processing technician that she had a metabolic acidosis though they did not think it was related to her kidneys and she was referred back to her doctor. Electrolytes are being monitored closely and she was once again found to have an extremely low potassium on labs drawn today and she was directed to the ED. She takes Lasix 20 mg twice daily as needed for edema and usually takes that 1 to 2 times per week though she is not on potassium supplementation with that. She has not had an increase in insulin requirement and fact her insulin use has gone down since getting off of the prednisone. She does not use albuterol. She denies vomiting and again her diarrhea is mostly gone. Adrenal insufficiency was reportedly ruled out. She denies fever, cold and flu symptoms, chest pain, pleuritic pain, shortness of breath, abdominal pain, dysuria, joint swelling, rash, focal weakness, paresthesias, visual changes, and vertigo. In the ED: Vital signs were stable on arrival. Labs were significant for a hemoglobin of 10.8, potassium 2.2, chloride 97, carbon dioxide 33, BUN 27, creatinine 2.00, calcium 8.1, magnesium 1.9, total protein 5.0, albumin 3.2. She was given potassium chloride 40 mEq p.o., potassium chloride 40 mEq IV, and magnesium sulfate 1 g IV. She is being admitted in this setting for further treatment and close monitoring of her electrolytes. severe hypokalemia with metabolic alkalosis. suspect diuretic use, ongoing chronic diarrhea. adrenal insufficiency unlikely and will lead to hyperkalemia rather. continue potassium supplementation and continue to monitor K level hold lasix. Continue to replace and monitor chronic diarrhea: which has now somewhat resolved. gi consultation. Fecal studies. Under sleepy. Biopsies taken. Follow up as an outpatient basis. Urine 5HIAA 24 hr pending. TSH normal. fecal fat is normal. stool studies were negative. ESR and CRP mildly elevated anemia: mild chronic. CKD stage 3: continue to monitor. at baseline. type 2 dm on insulin pump. continue pump, monitor accucheck and adjust as needed. polymyalgia rheumatica vs rheumaatoid arthritis ileana, tania, ccp, all negative in the past. she reports elevated crp in the past bilateral lower extremity edema; venous duplex negative DVT proph: lovenox code status: full code Time Spent with Patient Time attestation: Total time spent providing and/or coordinating discharge services: 40 minutes Exam Narrative: General: Well-developed, nontoxic-appearing female sitting up in bed in no acute distress. HEENT: PERRL, EOMI. Sclera anicteric. Oral mucosa moist. Neck: Supple. Respiratory: Lungs are clear to auscultation bilaterally. Cardiovascular: Regular rate and rhythm with S1-S2. Gastrointestinal: Abdomen is soft, obese, nontender, nondistended with positive bowel sounds. Skin: Warm and dry. Extremities: No cyanosis or clubbing. Trace bilateral rocio ankle and pretibial edema. Neurological: Alert. Cranial nerves 2-12 are grossly intact. No gross focal deficits to casual conversation. Psychiatric: Pleasant and cooperative with normal mood and affect. Judgment and insight intact. DS: Data Data Completed and Pending Pending studies at discharge: Pending at discharge 05/22/24 13:56 Surgical [PTH] Routine 05/22/24 14:11 Surgical [PTH] Routine Labs on day of discharge: Labs from last 24 hours 05/22/24 05/22/24 05/22/24 16:29 14:44 11:31 WBC RBC Hgb Hct MCV MCH MCHC RDW Plt Count MPV Immature Gran % (Auto) Neut % (Auto) Lymph % (Auto) Swisher % (Auto) Eos % (Auto) Baso % (Auto) Lymph # (Auto) Swisher # (Auto) Eos # (Auto) Baso # (Auto) Abs Immat Gran (auto) Absolute Neuts (auto) Absolute Nucleated RBC Nucleated RBC % Sodium Potassium Pending Chloride Carbon Dioxide Anion Gap BUN Creatinine Estim Creat Clear Calc Estimated GFR Glucose POC Capillary Glucose 91 84 Calcium Magnesium Total Bilirubin AST ALT Alkaline Phosphatase Total Protein Albumin Stool Calprotectin Stool Pancreat Elastase 05/22/24 05/22/24 05/21/24 08:15 06:20 20:18 WBC 6.8 RBC 3.59 L Hgb 10.0 L Hct 32.3 L MCV 90.0 MCH 27.9 MCHC 31.0 L RDW 15.4 H Plt Count 245 MPV 9.8 Immature Gran % (Auto) 0.6 H Neut % (Auto) 78.3 H Lymph % (Auto) 12.3 L Swisher % (Auto) 8.7 H Eos % (Auto) 0.0 Baso % (Auto) 0.1 L Lymph # (Auto) 0.83 L Swisher # (Auto) 0.6 Eos # (Auto) 0.0 Baso # (Auto) 0.0 Abs Immat Gran (auto) 0.04 H Absolute Neuts (auto) 5.3 Absolute Nucleated RBC 0.000 Nucleated RBC % 0.0 Sodium 139 Potassium 3.4 Chloride 106 Carbon Dioxide 27 Anion Gap 6 BUN 20 H Creatinine 1.50 H Estim Creat Clear Calc 40 Estimated GFR 35 L Glucose 100 POC Capillary Glucose 112 H 100 Calcium 8.2 L Magnesium 2.4 H Total Bilirubin 0.5 AST 16 ALT 11 Alkaline Phosphatase 53 Total Protein 5.0 L Albumin 2.9 L Stool Calprotectin Stool Pancreat Elastase 05/21/24 16:24 WBC RBC Hgb Hct MCV MCH MCHC RDW Plt Count MPV Immature Gran % (Auto) Neut % (Auto) Lymph % (Auto) Swisher % (Auto) Eos % (Auto) Baso % (Auto) Lymph # (Auto) Swisher # (Auto) Eos # (Auto) Baso # (Auto) Abs Immat Gran (auto) Absolute Neuts (auto) Absolute Nucleated RBC Nucleated RBC % Sodium Potassium Chloride Carbon Dioxide Anion Gap BUN Creatinine Estim Creat Clear Calc Estimated GFR Glucose POC Capillary Glucose Calcium Magnesium Total Bilirubin AST ALT Alkaline Phosphatase Total Protein Albumin Stool Calprotectin Pending Stool Pancreat Elastase Pending Imaging Radiologist's impression: ITS Impressions Venous Doppler Study 05/20/24 15:28 IMPRESSION: Patent bilateral lower extremity veins. No evidence of deep venous thrombosis. Discharge Plan Discharge Attending physician on discharge: Torito Smith Consulting providers: Henrik Montoya Discharging Clinician: Torito Smith Anticipated Discharge Date/Time: 05/22/24 16:38 Patient Disposition: Home, Self-Care Activity: as tolerated Diet: heart healthy Patient Instructions: Antibiotic Form Patient Language: Kazakh Stand Alone Forms: General Discharge Information Follow-up/Referrals: Henrik Montoya MD [Physician] - 2 Weeks Cheikh Ackerman MD [Primary Care Provider] - 1 Week Discharge Medications: New potassium chloride [K-Tab] 20 mEq tablet extended release 20 meq PO BID Qty: 30 0RF Continued (DME) Dexcom G6 Transmitter Device MISCELLANEOUS metoprolol succinate 50 mg tablet extended release 24 hr 50 mg PO DAILY losartan 50 mg tablet 50 mg PO DAILY tramadol 50 mg tablet See Rx Instructions PO QID PRN (Reason: pain) Qty: 60 2RF Rx Instructions: Take 1 or 2 tablets orally four times daily PRN; clopidogrel 75 mg tablet 75 mg PO DAILY (DME) MiniMed 630G Insulin Pump Misc See Rx Instructions .ROUTE .MEDSUPPLY Qty: 1 Rx Instructions: She is using this Medtronic insulin pump. furosemide 80 mg tablet 20 mg PO BID Patient Comments: PRN per chemical processing technician sertraline 100 mg tablet 100 mg PO DAILY Qty: 90 2RF nystatin [Klayesta] 100,000 unit/gram powder 1 applic TOPICAL QID ferrous sulfate [FeroSul] 325 mg (65 mg iron) tablet 325 mg PO DAILY cholecalciferol (vitamin D3) [Vitamin D3] 25 mcg (1,000 unit) Tablet 25 mcg PO DAILY insulin aspart U-100 [Novolog U-100 Insulin aspart] 100 unit/mL solution See Rx Instructions SUB-Q USEASDIRECTD 90 Days Qty: 90 6RF Rx Instructions: up to 100 units daily via pump subcut use as directed; lorazepam 0.5 mg tablet 0.5 mg PO DAILY PRN (Reason: Anxiety) Qty: 30 4RF ondansetron HCl 4 mg tablet 4 mg PO Q6H PRN (Reason: nausea and vomiting) Qty: 30 1RF Other Ambulatory Orders: Basic Metabolic Panel (Routine) Timeframe: 1 Week Location: Determined by Patient Ordered By: Torito Smith Date of admission: 05/20/24 07:13 Primary Care Provider: Cheikh Ackerman Admitting Provider: Torito Smith Attending physician on admission: Torito Smith Condition: Stable
[2024-05-22 16:42] LABS: Potassium 3.7 mmol/L (3.4-5.0)
[2024-05-25 19:58] LABS: PRA 0.44 ng/mL/h (0.25-5.82)
[2024-05-27 03:28] LABS: Gliadin AB, IgG <1.0 U/mL; Immunoglobulin A <5 mg/dL (47-310); TTG IGA AB <1.0 U/mL; Tissue Transglutaminase IgG Ab <1.0 U/mL
[2024-05-28 18:18] LABS: Calprotectin, Stool 57 mcg/g
== END 2024-05-22 17:48 | disposition home or self-care (01) | DRG 641 ==
LOC: ANHED 19:59 → ANH3MEDSUR 20:45
PROVIDERS: Internal Medicine Gastroenterology; Nurse Practitioner Family; Physician Assistant; Admitting Provider Internal Medicine; Emergency Provider Physician Assistant; PCP Family Medicine Adolescent Medicine; Visit Provider Internal Medicine
PROC: 0DJ08ZZ Inspection of Upper Intestinal Tract, Via Natural or Artificial Opening Endoscopic (ICD-10-PCS; CPT 45378; principal; 2024-05-22 15:00)
DX: E87.6 Hypokalemia (principal); I12.9 Hypertensive chronic kidney disease with stage 1 through stage 4 chronic kidney disease, or unspecified chronic kidney disease; E87.3 Alkalosis; N18.30 Chronic kidney disease, stage 3 unspecified; E11.22 Type 2 diabetes mellitus with diabetic chronic kidney disease; I25.10 Atherosclerotic heart disease of native coronary artery without angina pectoris; K52.9 Noninfective gastroenteritis and colitis, unspecified; K63.5 Polyp of colon; K57.30 Diverticulosis of large intestine without perforation or abscess without bleeding; E78.5 Hyperlipidemia, unspecified; M17.0 Bilateral primary osteoarthritis of knee; R60.0 Localized edema; F32.A Depression, unspecified; F41.9 Anxiety disorder, unspecified; Z96.41 Presence of insulin pump (external) (internal); I25.2 Old myocardial infarction; Z79.02 Long term (current) use of antithrombotics/antiplatelets; Z79.4 Long term (current) use of insulin; Z86.0101 Personal history of adenomatous and serrated colon polyps
CPT/HCPCS: 36415; 80048; 80053; 82088; 82533; 82607; 82653; 82728; 82746; 82784; 82948; 83540; 83550; 83735; 83993; 84132; 84244; 84443; 85025; 85652; 86140; 86364; 87338; 88305; 93005; 93970; 96365; 96366; 96367; 99285; A9270; G0378; J1650; J2704; J3475; J3480; J7040; J7120

== ENCOUNTER 2024-05-29 10:19 | Outpatient (CLI) | payer BC, SELFPAY ==
--- OUTSIDE RECORDS SUMMARY | 2024-05-29 11:44 | XMS_ITS | Clinical Summary ---
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 08/05/2023 BOOP (bronchiolitis [...] on prednisone - advised to contact her floor nurse to discuss her blood pressure and edema [...] Encounters Date Type Department Care Team Description 05/29/2024 Telephone [facility] [address] [place] [address] 5th [place] [address] [place] [phone] Pepe Nicole MD Medication change 05/18/2024 1:40 PM MAPPING TECHNICIAN - 05/18/2024 11:59 PM MAPPING TECHNICIAN Hospital Encounter [address] [address] Bilateral knee swelling; Chronic pain of both knees Discharge Disposition: Discharge to home or self care 05/18/2024 1:00 PM MAPPING TECHNICIAN Office Visit [facility] Sports Medicine and Primary Care at [address] [place] [phone] Ash Godwin DO Bilateral knee swelling (Primary Dx); Chronic pain of both knees 05/14/2024 9:00 AM MAPPING TECHNICIAN Office Visit [facility] Sports Medicine and Primary Care at [address] [place] [phone] Ash Godwin DO Primary osteoarthritis of both knees (Primary Dx) 05/03/2024 Telephone [facility] [address] [place] [address] Office Building [address] [place] [address] Crissy Mcadams NP 05/01/2024 1:30 PM MAPPING TECHNICIAN Office Visit [facility] [address] Medical Office Building 2 [address] [place] [address] Crissy Mcadams NP Polymyalgia rheumatica syndrome (Primary Dx); correction (current) use of systemic steroids 04/20/2024 Telephone [facility] [address] [facility] 5th [place] [address] [place] [address] Torey Zapatath 03/20/2024 1:00 PM MAPPING TECHNICIAN Office Visit [facility] [address] [facility] 5th [place] [address] [place] [address] CKD (chronic kidney disease) stage 4, GFR 15-29 ml/min (HCC) (Primary Dx); Essential hypertension; Proteinuria, unspecified type; Anemia in stage 4 chronic kidney disease (HCC); Renal osteodystrophy 03/12/2024 3:31 PM MAPPING TECHNICIAN - 03/12/2024 11:59 PM MAPPING TECHNICIAN Hospital Encounter [address] [address] CKD (chronic kidney disease) stage 4, GFR 15-29 ml/min ([facility]); Vitamin D deficiency; Proteinuria, unspecified type Discharge Disposition: Discharge to home or self care 03/12/2024 12:30 PM MAPPING TECHNICIAN Ancillary Procedure [facility] Imaging at [address] [address] correction (current) use of systemic steroids 03/12/2024 12:15 PM MAPPING TECHNICIAN Ancillary Procedure [facility] Imaging at [address] [address] intermediate project manager (current) use of systemic steroids 03/12/2024 11:24 AM MAPPING TECHNICIAN - 03/12/2024 11:59 PM MAPPING TECHNICIAN Hospital Encounter [address] [address] correction (current) use of systemic steroids Discharge Disposition: Discharge to home or self care 03/12/2024 11:15 AM MAPPING TECHNICIAN Lab [facility] Outpatient Lab at [address] [address] Mixed hyperlipidemia (Primary Dx); Type 2 diabetes [...] on file Legal Sex Female 11:58 PM MAPPING TECHNICIAN Gender Identity Female 04/03/2018 2:53 PM MAPPING TECHNICIAN Sexual Orientation Not on file Obstetrics History Last Filed Vital Signs Vital Sign Reading Time Taken Comments Blood Pressure 117/70 05/18/2024 1:18 PM MAPPING TECHNICIAN Pulse 93 05/18/2024 1:18 PM MAPPING TECHNICIAN Temperature 36.6 C (97.8 F) 05/01/2024 1:26 PM MAPPING TECHNICIAN Respiratory Rate 20 10/05/2023 10:52 AM CDT Oxygen Saturation 97% 05/01/2024 1:26 PM MAPPING TECHNICIAN Inhaled Oxygen Concentration - - Weight 85.7 kg (189 lb) 05/18/2024 1:18 PM MAPPING TECHNICIAN Height 165.1 cm (5' 5 ) 05/18/2024 1:18 PM MAPPING TECHNICIAN Body Mass Index 31.45 05/18/2024 1:18 PM MAPPING TECHNICIAN Plan of Treatment Health Maintenance Due Date [...] 2023 10/31/2015, 2015 Hemoglobin A1C 04/26/2024 10/25/2023, 03, 11/03/2022, Additional history exists Lipid Panel 08/09/2024 08/10/2023, 0308/2022, 04/16/2020, Additional history exists eGFR 03/12/2025 03/12/2024, 11/0 10/2023, 10/05/2023, Additional history exists Procedures Procedure Name Priority Date/Time Associated Diagnosis Comments CRYSTAL ANALYSIS, BODY FLUID Routine 05/18/2024 1:40 PM MAPPING TECHNICIAN Bilateral knee swelling Chronic pain of both knees AR ARTHROCENTESIS ASPIR&/INJ MAJOR JT/BURSA W/US Routine 05/18/2024 1:00 PM MAPPING TECHNICIAN Bilateral knee swelling Chronic pain of both knees XR KNEE RIGHT 3 VIEWS Schedule Routine, Read Routine (OP Routine) 03/12/2024 11:34 AM MAPPING TECHNICIAN correction (current) use of systemic steroids XR KNEE LEFT 3 VIEWS Schedule Routine, Read Routine (OP Routine) 03/12/2024 11:34 AM MAPPING TECHNICIAN correction (current) use of systemic steroids EGFR Routine 03/12/2024 11:25 AM MAPPING TECHNICIAN CKD (chronic kidney disease) stage 4, GFR 15-29 ml/min (HCC) Vitamin D deficiency Proteinuria, unspecified type RENAL FUNCTION PANEL Routine 03/12/2024 11:25 AM MAPPING TECHNICIAN CKD (chronic kidney disease) stage 4, GFR 15-29 ml/min (HCC) Vitamin D deficiency Proteinuria, unspecified type VITAMIN D 25 HYDROXY Routine 03/12/2024 11:25 AM MAPPING TECHNICIAN CKD (chronic kidney disease) stage 4, GFR 15-29 ml/min (HCC) Vitamin D deficiency Proteinuria, unspecified type PROTEIN / CREATININE RATIO, URINE, RANDOM Routine 03/12/2024 11:25 AM MAPPING TECHNICIAN CKD (chronic kidney disease) stage 4, GFR 15-29 ml/min (HCC) Vitamin D deficiency Proteinuria, unspecified type CRP (ACUTE PHASE) Routine 03/12/2024 11: 25 AM MAPPING TECHNICIAN correction (current) use of systemic steroids ERYTHROCYTE SEDIMENTATION RATE Routine 03/12/2024 11:25 AM MAPPING TECHNICIAN intermediate project manager (current) use of systemic steroids IRON PROFILE W/ IBC Routine 03/12/2024 1 1:25 AM MAPPING TECHNICIAN intermediate project manager (current) use of systemic steroids VITAMIN B12 Routine 03/12/2024 11:25 AM MAPPING TECHNICIAN intermediate project manager (current) use of systemic steroids POCT HEMOGLOBIN A1C Routine 10/25/2023 9 :17 AM CDT Type 2 diabetes mellitus without complication, with long-term current use of insulin ([facility]) POCT LIPID PANEL Routine 08/10/2023 2:56 PM CDT Lipid screening from Last 3 Months or Most Recently Relevant to Health Maintenance Results * Crystal Analysis, Body Fluid (05/18/2024 1:40 PM MAPPING TECHNICIAN) Specimen type, fld Synovial Crystals Not Present [facility]ERNER Fluid 05/18/2024 1:40 PM MAPPING TECHNICIAN 05/18/2024 10:31 PM MAPPING TECHNICIAN Narrative ALICE WATT - 05/21/2024 7:50 AM CDT Specify:->Right knee us Ash Godwin DO LAB BODY FLUIDS AND ST OOLS ORDERABLES Final Result ALICE [address] [address] Department of Laboratories [place] [id number] * AR ARTHROCENTESIS ASPIR&/INJ MAJOR JT/BURSA W/US (05/18/2024 1:00 PM MAPPING TECHNICIAN) Narrative Ash Godwin DO - 05/18/2024 1:00 PM MAPPING TECHNICIAN Ash Godwin DO 05/18/2024 1:44 PM Large [...] May Performing physician: Ash Godwin DO, ROSELYN, CAM Reason for procedure: Right knee pain and [...] knee right 3 views (03/12/2024 11:34 AM MAPPING TECHNICIAN) Anatomical Region Laterality Modality Lower Extremities, Knee Right Digital Radiography 03/12/2024 7:48 PM MAPPING TECHNICIAN Narrative 03/12/2024 7:49 PM MAPPING TECHNICIAN EXAM DESCRIPTION: XR KNEE LEFT 3 VIEWS; [...] by Ash Rubio M.D. T: Report ID: [id number] Reading Location: [id number] Procedure Note Ash Rubio MD - 03/12/2024 [...] by Ash Rubio M.D. T: Report ID: [id number] Reading Location: [id number] Crissy Mcadams NP IMG XR PROCEDURES Final Result * X-ray knee left 3 views (03/12/2024 11:34 AM MAPPING TECHNICIAN) Anatomical Region Laterality Modality Lower Extremities, Knee Left Digital Radiography 03/12/2024 7:48 PM MAPPING TECHNICIAN Narrative 03/12/2024 7:49 PM MAPPING TECHNICIAN EXAM DESCRIPTION: XR KNEE LEFT 3 VIEWS; [...] by Ash Rubio M.D. T: Report ID: [id number] Reading Location: [place] [address] Procedure Note Ash Rubio MD - 03/12/2024 [...] by Ash Rubio M.D. T: Report ID: [id number] Reading Location: [id number] Crissy Mcadams MITER CUTTER IMG XR PROCEDURES Final Result * (ABNORMAL) eGFR (03/12/2024 11:25 AM MAPPING TECHNICIAN) [facility] Signature eGFR 35(L) >=60 mL/min/1. 73 m2 Comment: [...] reviewed 2021. Blood 03/12/2024 11:2 5 AM MAPPING TECHNICIAN 03/12/2024 8:18 PM MAPPING TECHNICIAN Brittnee Blackwell MD LAB BLOOD ORDERABLES Fi nal Result Performing Organization Address City/[facility]/ZIP Co de Phone Number ALICE WATT [address] [address] [place] [address] * (ABNORMAL) Iron profile w/ IBC (03/12/2024 11:25 AM MAPPING TECHNICIAN) Iron 37 35 - 145 mcg/dl TIBC 200(L) 250 - 400 mcg/dL [facility] Transferrin saturation 19(L) 20 - 50 % [facility] Blood 03/12/2024 11:2 5 AM MAPPING TECHNICIAN 03/12/2024 8:18 PM MAPPING TECHNICIAN Crissy Mcadams NP LAB BLOOD ORDERABLES Fi nal Result ALICE [address] [address] Department of [employer] [place], [place] [id number] * (ABNORMAL) Protein / creatinine ratio, urine, random (03/12/2024 11:25 AM MAPPING TECHNICIAN) Pathologist [facility] Protein, ur, quant 196.5 mg/dL Comment: Interpretive Data No reference range established. Current interpretive data was last revised 2018. Creatinine Ur 164.2 mg/dL ALICE Comment: Interpretive Data No reference range established. Current interpretive data was last revised 2018. Protein/creatinin e ratio 1,196.7(H ) 0.0 - 180.0 mg/g CR [facility] Urine 03/12/2024 11:2 5 AM MAPPING TECHNICIAN 03/12/2024 8:38 PM MAPPING TECHNICIAN Brittnee Blackwell MD LAB URINE ORDERABLES Fi nal Result Performing Organization Address [facility] Co de Phone Number [facility] [address] [address] [facility] [place] [place] [address] * (ABNORMAL) Vitamin D 25 hydroxy (03/12/2024 11:25 AM MAPPING TECHNICIAN) Pathologist [facility] Vitamin D 25-OH 28(L) 30 - 80 ng/mL Blood 03/12/2024 11:2 5 AM MAPPING TECHNICIAN 03/12/2024 8:18 PM MAPPING TECHNICIAN Brittnee Blackwell MD LAB BLOOD ORDERABLES Fi nal Result Performing Organization Address City/[facility] Co de Phone Number [facility] [address] [address] [facility] [employer] [place], [place] [phone] * Erythrocyte sedimentation rate (03/12/2024 11:25 AM MAPPING TECHNICIAN) [facility] Erythrocyte sedimentation rate 16 1 - 30 mm/hr Blood 03/12/2024 11:2 5 AM MAPPING TECHNICIAN 03/12/2024 8:18 PM MAPPING TECHNICIAN Crissy Mcadams NP LAB BLOOD ORDERABLES Fi nal Result Performing Organization Address City/[facility] Co de Phone Number [facility] [address] [address] [facility] [employer] [place], [place] [phone] * (ABNORMAL) CRP (acute phase) (03/12/2024 11:25 AM MAPPING TECHNICIAN) Pathologist [facility] CRP 18.4(H) <=10.0 mg/L Blood 03/12/2024 11:2 5 AM MAPPING TECHNICIAN 03/12/2024 8:18 PM MAPPING TECHNICIAN us Crissy Mcadams MITER CUTTER LAB BLOOD ORDERABLES Fi nal Result Performing Organization Address [facility] de Phone Number [facility] [address] [address] Department [place] [address] * Vitamin B12 (03/12/2024 11:25 AM MAPPING TECHNICIAN) [facility] Vitamin B12 545 230 - 1,250 pg/mL Blood 03/12/2024 11:2 5 AM MAPPING TECHNICIAN 03/12/2024 8:18 PM MAPPING TECHNICIAN us Crissy Mcadams MITER CUTTER LAB BLOOD ORDERABLES Fi nal Result Performing Organization Address [facility] de Phone Number [facility] [address] [address] [place] [address] * (ABNORMAL) Renal function panel (03/12/2024 11:25 AM MAPPING TECHNICIAN) [facility] Sodium 144 135 - 145 mmol/L Potassium, pl 4.7 3.3 - 4.9 mmol/L [facility] Chloride 112(H) 97 - 110 mmol/L [facility] CO2 17(L) 22 - 32 mmol/L [facility] Anion gap 15 2 - 15 mmol/L [facility] BUN 25 6 - 25 mg/dL [facility] Creatinine 1.69(H) 0.60 - 1.10 mg/dL [facility] Glucose 108 70 - 199 mg/dL [facility] Comment: Interpretive Data Fasting glucose >/= 126 [...] classification and Diagnosis of Diabetes Diabetes Care 2021; 46: S19-S40. Current interpretive data was last revised 2022. Calcium 9.3 8.5 - 10.3 mg/dL [facility] Phosphorus, pl 2.9 2.3 - 4.5 mg/dL [facility] Albumin 3.9 3.5 - 5.0 g/dL [facility] Blood 03/12/2024 11:2 5 AM MAPPING TECHNICIAN 03/12/2024 8:18 PM MAPPING TECHNICIAN Brittnee Blackwell MD LAB BLOOD ORDERABLES Fi nal Result ALICE [address] [address] Department [place] [address] * POCT hemoglobin A1c (10/25/2023 9:17 AM [...] Most Recently Relevant to Health Maintenance Insurance ANTHEM ACCESS CHOICE ANTHEM ACCESS CHOICE Care Teams Anti Air Warfare Operations Officer Relationship Specialty Start Date End Date Cheikh Ackerman MD [address] [place] [address] PCP - General 06/11/16 Pepe Nicole MD [address] [place] [phone] Referring Physician Nephrology 04/24/20 Francisco Javier Uriostegui MD [address] [facility] [address] [place] [address] Consulting Physician Cardiology 11/22/22
--- OUTSIDE RECORDS SUMMARY | 2024-05-29 11:44 | XMS_ITS | Continuity of Care Document ---
Author Organization [facility] Address [address] [place] [address] utive [facility] [address] [place] [address] Phone Care Team Providers Care Dye Expert Name Role Phone Brooke Amador Unavailable Unavailable Procedures Procedure Date Eye Exam, New Patient Advance Directives Directive Yes / No Effective Date File Name No Information Encounters Encounter Description Practice Location Reason(s) For Visit Diagnoses Date Provider Providers Copied on Encounter [facility], [address] [place] [address] [address], [place], [place], [id number], [place] tel:[phone] [facility] No Information 8-200 [address] Marjorie [address]. [address] , [address], [place], [address], [place]. tel:[phone] Family History Family Member Type Diagnosis Age At Onset No Information Payers Payer name Insurance type Covered democrat ID Authoriza tion(s) No Information Social History [...]
--- OUTSIDE RECORDS SUMMARY | 2024-05-29 11:44 | XMS_ITS | Encounter Summary ---
Author Organization [facility] Address [address] [address] Care Team Providers Care Engagement Director Name Role Phone Cheikh Ackerman MD Primary Care Prov ider Cheikh Ackerman MD Primary Care Prov ider Cheikh Ackerman MD Primary Care Prov ider Pepe Nicole MD Unavailable [phone] Francisco Javier Uriostegui MD Unavailable Encounter Details Date Type Department Care Team (Late st Contact Info) Description 10/08/2015 Orders Only [facility] Provider, MD Yohan [address] [place] [address] Social History Tobacco Use Types Packs/Day Years Used Date Smoking Tobacco: Never Assessed Comments Unknown Sex and Gender Information Value Date Recorded Sex Assigned at Not on file Legal Sex Female 11:58 PM PAVING MACHINE OPERATOR Gender Identity Female 04/03/2018 2:53 PM PAVING MACHINE OPERATOR Sexual Orientation Not on file documented [...] on filedocumented in this encounter Care Teams Engagement Director Relationship Specialty Start Date End Date Cheikh Ackerman MD [address] [place] [address] PCP - General 06/11/16 Cheikh Ackerman MD [address] [place] [address] PCP - General 05/04/16 06/10/16 Cheikh Ackerman MD [address] [place] [address] PCP - General 04/25/06 05/03/16 [place] [address] [place] [address] [address] [place] [address] Referring Physician Nephrology 04/24/20 Francisco Javier Uriostegui MD [address] [facility] [address] [facility] [address] [place] [address] Consulting Physician Cardiology 11/22/22 documented as of this encounter
--- OUTSIDE RECORDS SUMMARY | 2024-05-29 11:44 | XMS_ITS | Encounter Summary ---
Author Organization [facility] Address [address] [place] [address] Phone Care Team Providers Care Compensation Expert Name Role Phone Cheikh Ackerman MD Primary Care Prov ider Pepe Nicole MD Unavailable [phone] Francisco Javier Uriostegui MD Unavailable Reason for Visit * Reason Onset Date Comments Medication change 05/29/2024 Encounter Details Date Type Department Care Team (Late st Contact Info) Description 05/29/2024 Telephone [facility] Nephrology [address] [facility] 5th [place] [address] [place] [address] Pepe Nicole MD [facility] [place], [place] [id number] Medication change Social History Tobacco Use Types Packs/Day Years [...] Frequency of Binge Drinking Not on file 07/2 06/2023 Comments Unknown Sex and Gender Information Value Date Recorded Sex Assigned at Not on file Legal Sex Female 11:58 PM CHIEF PROJECTIONIST Gender Identity Female 04/03/2018 2:53 PM CHIEF PROJECTIONIST Sexual Orientation Not on file documented as of this encounter Miscellaneous Notes * Telephone Encounter - Enedina Valdez - 05/29/2024 10:22 AM CDT Pt called she was inpatient at [facility] from 05/19/24-05/22/24 for low potassium. They did5 or 6 infusions and prescribed Potassium 1 BID for 15 days at [place] (pt unsure of strength). She is contacting [facility] to have records faxed to our office from hospital stay. Today she had follow up with her PCP. MD upped her losartan from 50 mg daily to 100 mg daily. BP today in office [id number]. She wants to make sure this med change is ok form kidney standpoint. Pt CB# [phone]. Thanks-Tressa documented in this encounter Plan of Treatment Not on file documented as of this encounter Visit Diagnoses Not on filedocumented in this encounter Care Teams Compensation Expert Relationship Specialty Start Date End Date Cheikh Ackerman MD [address] [place] [address] PCP - General 06/11/16 Pepe Nicole MD [address] [place] [address] Referring Physician Nephrology 04/24/20 Francisco Javier Uriostegui MD [address] [facility] [address] [facility] 120 [place] [address] Consulting Physician Cardiology 11/22/22 documented as of this encounter
--- OUTSIDE RECORDS SUMMARY | 2024-05-29 11:44 | XMS_ITS | Encounter Summary ---
Author Organization [facility] Facility Care Team Providers Care Motorcycle Repairer Name Role Phone Cheikh Ackerman MD Primary Care Prov ider Cheikh Ackerman MD Primary Care Prov ider Cheikh Ackerman MD Primary Care Prov ider Pepe Nicole MD Unavailable [phone] Francisco Javier Uriostegui MD Unavailable Encounter Details Date Type Department Care Team (Latest Contact Info) Description 03/12/2016 Orders Only [facility] ProviderYohan MD [address] [place], [place] [phone] Social History Tobacco Use Types Packs/Day Years Used Date Smoking Tobacco: Never Assessed Comments Unknown Sex and Gender Information Value Date Recorded Sex Assigned at Not on file Legal Sex Female 11:58 PM PROPULSION MOTOR AND GENERATOR REPAIRER Gender Identity Female 04/03/2018 2:53 PM PROPULSION MOTOR AND GENERATOR REPAIRER Sexual Orientation Not on file documented as of this encounter Plan of Treatment Not on file documented as of this encounter Procedures Procedure Name Priority Date/Time Associated Diagnosis Comments SCAN - LABS 04/06/2016 12:00 AM PROPULSION MOTOR AND GENERATOR REPAIRER SCAN - PATHOLOGY 03/12/2016 12:0 0 AM PROPULSION MOTOR AND GENERATOR REPAIRER documented in this encounter Results * SCAN - LABS (04/06/2016 12:00 AM PROPULSION MOTOR AND GENERATOR REPAIRER) Narrative 04/06/2016 12:00 AM PROPULSION MOTOR AND GENERATOR REPAIRER Ordered by an unspecified provider. Historical Provider Final Res ult * SCAN - PATHOLOGY (03/12/2016 12:00 AM PROPULSION MOTOR AND GENERATOR REPAIRER) Narrative 03/12/2016 12:00 AM PROPULSION MOTOR AND GENERATOR REPAIRER Ordered by an unspecified provider. Historical Provider Final Res ult documented in this encounter Visit Diagnoses Not on filedocumented in this encounter Care Teams Motorcycle Repairer Relationship Specialty Start Date End Date Cheikh Ackerman MD [address] [place] [address] PCP - General 06/11/16 Cheikh Ackerman MD [address] [place] [address] PCP - General 05/04/16 06/10/16 Cheikh Ackerman MD [address] [place] [address] PCP - General 04/25/06 05/03/16 Pepe Nicole MD [address] [place] [address] Referring Physician Nephrology 04/24/20 Francisco Javier Uriostegui MD [address] [place] [address] Consulting Physician Cardiology 11/22/22 documented as of this encounter
--- OUTSIDE RECORDS SUMMARY | 2024-05-29 11:44 | XMS_ITS | Encounter Summary ---
Author Organization [facility] Facility Care Team Providers Care Blasting Entryman Name Role Phone Cheikh Ackerman MD Primary Care Prov ider Cheikh Ackerman MD Primary Care Prov ider Cheikh Ackerman MD Primary Care Prov ider Pepe Nicole MD Unavailable [phone] Francisco Javier Uriostegui MD Unavailable Encounter Details Date Type Department Care Team (Latest Contact Info) Description 02/11/2016 Orders Only [facility] ProviderYohan MD [address] [place] [address] Social History Tobacco Use Types Packs/Day Years Used Date Smoking Tobacco: Never Assessed Comments Unknown Sex and Gender Information Value Date Recorded Sex Assigned at Not on file Legal Sex Female 11:58 PM BLASTING ENTRYMAN Gender Identity Female 04/03/2018 2:53 PM BLASTING ENTRYMAN Sexual Orientation Not on file documented as of this encounter Plan of Treatment Not on file documented as of this encounter Procedures Procedure Name Priority Date/Time Associated Diagnosis Comments PROCEDURE - RESULT 02/11/2016 12 :00 AM BLASTING ENTRYMAN documented in this encounter Results * PROCEDURE - RESULT (02/11/2016 12:00 AM BLASTING ENTRYMAN) Narrative 02/11/2016 12:00 AM BLASTING ENTRYMAN Ordered by an unspecified provider. us Historical Provider Final Res ult documented in this encounter Visit Diagnoses Not on filedocumented in this encounter Care Teams Blasting Entryman Relationship Specialty Start Date End Date Cheikh Ackerman MD [address] [place] [address] PCP - General 06/11/16 Cheikh Ackerman MD [address] [place] [address] PCP - General 05/04/16 06/10/16 Cheikh Ackerman MD [address] [place] [address] PCP - General 04/25/06 05/03/16 Pepe Nicole MD [address] [place] [address] Referring Physician Nephrology 04/24/20 Francisco Javier Uriostegui MD [address] [facility] [address] [place] [address] Consulting Physician Cardiology 11/22/22 documented as of this encounter
--- OUTSIDE RECORDS SUMMARY | 2024-05-29 11:44 | XMS_ITS | Encounter Summary ---
Author Organization [facility] Address [address] [place] [address] Phone Care Team Providers Care Economic Analysis Director Name Role Phone Cheikh Ackerman MD Primary Care Prov ider Pepe Nicole MD Unavailable [phone] Francisco Javier Uriostegui MD Unavailable Encounter [...] on file Legal Sex Female 11:58 PM SHELL SHOP SUPERVISOR Gender Identity Female 04/03/2018 2:53 PM SHELL SHOP SUPERVISOR Sexual Orientation Not on file documented [...] on filedocumented in this encounter Care Teams Economic Analysis Director Relationship Specialty Start Date End Date Cheikh Ackerman MD [address] [place] [address] PCP - General 06/11/16 Pepe Nicole MD [address] [place] [address] Referring Physician Nephrology 04/24/20 Francisco Javier Uriostegui MD [address] [facility] [address] [place] [address] Consulting Physician Cardiology 11/22/22 documented as of this encounter
--- OUTSIDE RECORDS SUMMARY | 2024-05-29 11:44 | XMS_ITS | Encounter Summary ---
Author Organization [facility] Address [facility] [place] [address] Care Team Providers Care Translator Deaf Name Role Phone Linda Euceda Primary Care Provider [phone] Encounter Details Date Type Department Care Team (Late st Contact Info) Description 02/05/2022 [employer] Message Enc [facility] Family & Internal Medicine [facility] [id number] [place] [address] [facility] Provider Pap smear Social History [...] on file Legal Sex Female 5:38 PM JOB CHANGE CREW MEMBER Gender Identity Not on file Sexual Orientation Not on file documented as of this encounter Plan of Treatment Not on file documented as of this encounter Visit Diagnoses Not on filedocumented in this encounter Additional Health Concerns Assessment Noted Time PHQ-9 Depression Total Score: 8 04/21/19 22 4:17 PM JOB CHANGE CREW MEMBER documented as of this encounter Care Teams Translator Deaf Relationship Specialty [place] [address] [place] [address] PCP - General PHYSICIAN CENTERLESS GRINDER TENDER 04/08/21 documented as of this encounter
--- OUTSIDE RECORDS SUMMARY | 2024-05-29 11:44 | XMS_ITS | Encounter Summary ---
Author Organization [facility] Facility Care Team Providers Care Melter Operator Name Role Phone Cheikh Ackerman MD Primary Care Prov ider Cheikh Ackerman MD Primary Care Prov ider Cheikh Ackerman MD Primary Care Prov ider Pepe Nicole MD Unavailable [phone] Francisco Javier Uriostegui MD Unavailable Encounter Details Date Type Department Care Team (Latest Contact Info) Description 02/26/2016 Orders Only [facility] CLINCONV ProviderYohan MD [address] [place] [address] Social History Tobacco Use Types Packs/Day Years Used Date Smoking Tobacco: Never Assessed Comments Unknown Sex and Gender Information Value Date Recorded Sex Assigned at Not on file Legal Sex Female 11:58 PM SKEET OPERATOR Gender Identity Female 04/03/2018 2:53 PM SKEET OPERATOR Sexual Orientation Not on file documented as of this encounter Plan of Treatment Not on file documented as of this encounter Procedures Procedure Name Priority Date/Time Associated Diagnosis Comments PROCEDURE - RESULT 02/26/2016 12 :00 AM SKEET OPERATOR documented in this encounter Results * PROCEDURE - RESULT (02/26/2016 12:00 AM SKEET OPERATOR) Narrative 02/26/2016 12:00 AM SKEET OPERATOR Ordered by an unspecified provider. us Historical Provider Final Res ult documented in this encounter Visit Diagnoses Not on filedocumented in this encounter Care Teams Melter Operator Relationship Specialty Start Date End Date Cheikh Ackerman MD [address] [place] [address] PCP - General 06/11/16 Cheikh Ackerman MD [address] [place] [address] PCP - General 05/04/16 06/10/16 Cheikh Ackerman MD [address] [place] [address] PCP - General 04/25/06 05/03/16 Pepe Nicole MD [address] [place] [address] Referring Physician Nephrology 04/24/20 Francisco Javier Uriostegui MD [address] [facility] [address] [place] [address] Consulting Physician Cardiology 11/22/22 documented as of this encounter
--- OUTSIDE RECORDS SUMMARY | 2024-05-29 11:44 | XMS_ITS | Encounter Summary ---
Author Organization [facility] Address [address] [place] [address] Phone Care Team Providers Care Director College Name Role Phone Cheikh Ackerman MD Primary Care Prov ider Pepe Nicole MD Unavailable [phone] Francisco Javier Uriostegui MD Unavailable Encounter [...] on file Legal Sex Female 11:58 PM PROBE OPERATOR Gender Identity Female 04/03/2018 2:53 PM PROBE OPERATOR Sexual Orientation Not on file documented [...] filedocumented in this encounter Care Teams Director College Relationship Specialty Start Date End Date Cheikh Ackerman MD [address] [place] [address] PCP - General 06/11/16 Pepe Nicole MD [address] [place] [address] Referring Physician Nephrology 04/24/20 Francisco Javier Uriostegui MD [address] [place] [address] Consulting Physician Cardiology 11/22/22 documented as of this encounter
--- OUTSIDE RECORDS SUMMARY | 2024-05-29 11:44 | XMS_ITS | Encounter Summary ---
Author Organization [facility] Facility Care Team Providers Care Spikemaking Supervisor Name Role Phone Cheikh Ackerman MD Primary Care Prov ider Cheikh Ackerman MD Primary Care Prov ider Cheikh Ackerman MD Primary Care Prov ider Pepe Nicole MD Unavailable [phone] Francisco Javier Uriostegui MD Unavailable Encounter Details Date Type Department Care Team (Latest Contact Info) Description 02/18/2016 Orders Only [facility] CLINCONV ProviderYohan MD [address] [place] [address] Social History Tobacco Use Types Packs/Day Years Used Date Smoking Tobacco: Never Assessed Comments Unknown Sex and Gender Information Value Date Recorded Sex Assigned at Not on file Legal Sex Female 11:58 PM CARDIOLOGY CLINICAL NURSE SPECIALIST Gender Identity Female 04/03/2018 2:53 PM CARDIOLOGY CLINICAL NURSE SPECIALIST Sexual Orientation Not on file documented as of this encounter Plan of Treatment Not on file documented as of this encounter Procedures Procedure Name Priority Date/Time Associated Diagnosis Comments SCAN - PATHOLOGY 02/20/2016 12:0 0 AM CARDIOLOGY CLINICAL NURSE SPECIALIST SCAN - LABS 02/20/2016 12:00 AM CARDIOLOGY CLINICAL NURSE SPECIALIST SCAN - LABS 02/20/2016 12:00 AM CARDIOLOGY CLINICAL NURSE SPECIALIST SCAN - LABS 02/20/2016 12:00 AM CARDIOLOGY CLINICAL NURSE SPECIALIST SCAN - LABS 02/20/2016 12:00 AM CARDIOLOGY CLINICAL NURSE SPECIALIST documented in this encounter Results * SCAN - LABS (02/20/2016 12:00 AM CARDIOLOGY CLINICAL NURSE SPECIALIST) Narrative 02/20/2016 12:00 AM CARDIOLOGY CLINICAL NURSE SPECIALIST Ordered by an unspecified provider. Historical Provider Final Res ult * SCAN - PATHOLOGY (02/20/2016 12:00 AM CARDIOLOGY CLINICAL NURSE SPECIALIST) Narrative 02/20/2016 12:00 AM CARDIOLOGY CLINICAL NURSE SPECIALIST Ordered by an unspecified provider. [facility] Provider Final Res ult * SCAN - LABS (02/20/2016 12:00 AM CARDIOLOGY CLINICAL NURSE SPECIALIST) Narrative 02/20/2016 12:00 AM CARDIOLOGY CLINICAL NURSE SPECIALIST Ordered by an unspecified provider. [facility] Provider Final Res ult * SCAN - LABS (02/20/2016 12:00 AM CARDIOLOGY CLINICAL NURSE SPECIALIST) Narrative 02/20/2016 12:00 AM CARDIOLOGY CLINICAL NURSE SPECIALIST Ordered by an unspecified provider. [facility] Provider Final Res ult * SCAN - LABS (02/20/2016 12:00 AM CARDIOLOGY CLINICAL NURSE SPECIALIST) Narrative 02/20/2016 12:00 AM CARDIOLOGY CLINICAL NURSE SPECIALIST Ordered by an unspecified provider. [facility] Provider Final Res ult documented in this encounter Visit Diagnoses Not on filedocumented in this encounter Care Teams Spikemaking Supervisor Relationship Specialty Start Date End Date Cheikh Ackerman MD [address] [place] [address] PCP - General 06/11/16 Cheikh Ackerman MD [address] [place] [address] PCP - General 05/04/16 06/10/16 Cheikh Ackerman MD [address] [place] [address] PCP - General 04/25/06 05/03/16 Pepe Nicole MD [address] [place] [address] Referring Physician Nephrology 04/24/20 Francisco Javier Uriostegui MD [address] [facility] [address] [place] [address] Consulting Physician Cardiology 11/22/22 documented as of this encounter
--- OUTSIDE RECORDS SUMMARY | 2024-05-29 11:44 | XMS_ITS | Clinical Summary ---
Author Organization [facility] Address [address] [place] [address] Care Team Providers Care Kitchen Chef Name Role Phone Vanessa Cardoso MD Primary Care Provider [phone] Source Comments [facility],non-owned Affiliates and Associated Physician Practices is amultiple site organization consisting of ambulatory clinics and hospital sitesin [place], [place], [place] and [place]. This disclosure is being madepursuant to the Care Everywhere program and may not contain all information available regarding this patient. Last updated 17.[facility] [employer] Social History Tobacco Use Types Packs/Day Years [...] to complete this topic MENINGOCOCCAL (Group B) VACC INE SHARED DECISION-MAKING Aged Out No longer eligibl e based on patient's age to complete this topic MENINGOCOCCAL GROUPS A/C/Y/W VACCINE Aged Out No longer eligible b ased on patient's age to complete this topic PNEUMOCOCCAL VACCINE Aged Out No long er eligible based on patient's age to complete this topic Care Teams Kitchen Chef Relationship Specialty Start Date End Date Vanessa Cardoso MD [address] [place] [id number] PCP - General 01/09/21
--- OUTSIDE RECORDS SUMMARY | 2024-05-29 11:44 | XMS_ITS | Encounter Summary ---
Author Organization [facility] Facility Care Team Providers Care Cotton Sampler Name Role Phone Cheikh Ackerman MD Primary Care Prov ider Cheikh Ackerman MD Primary Care Prov ider Cheikh Ackerman MD Primary Care Prov ider Pepe Nicole MD Unavailable [phone] Francisco Javier Uriostegui MD Unavailable Encounter Details Date Type Department Care Team (Latest Contact Info) Description 03/04/2016 Orders Only [facility] CLINCONV ProviderYohan MD [address] [place] [address] Social History Tobacco Use Types Packs/Day Years Used Date Smoking Tobacco: Never Assessed Comments Unknown Sex and Gender Information Value Date Recorded Sex Assigned at Not on file Legal Sex Female 11:58 PM PLASTER CASTER Gender Identity Female 04/03/2018 2:53 PM PLASTER CASTER Sexual Orientation Not on file documented as of this encounter Plan of Treatment Not on file documented as of this encounter Procedures Procedure Name Priority Date/Time Associated Diagnosis Comments SCAN - LABS 03/04/2016 12:00 AM PLASTER CASTER documented in this encounter Results * SCAN - LABS (03/04/2016 12:00 AM PLASTER CASTER) Narrative 03/04/2016 12:00 AM PLASTER CASTER Ordered by an unspecified provider. us Historical Provider Final Res ult documented in this encounter Visit Diagnoses Not on filedocumented in this encounter Care Teams Cotton Sampler Relationship Specialty Start Date End Date Cheikh Ackerman MD [address] [place] [address] PCP - General 06/11/16 Cheikh Ackerman MD [address] [place] [address] PCP - General 05/04/16 06/10/16 Cheikh Ackerman MD [address] [place] [address] PCP - General 04/25/06 05/03/16 Pepe Nicole MD [address] [place] [address] Referring Physician Nephrology 04/24/20 Francisco Javier Uriostegui MD [address] [facility] [address] [place] [address] Consulting Physician Cardiology 11/22/22 documented as of this encounter
--- OUTSIDE RECORDS SUMMARY | 2024-05-29 11:44 | XMS_ITS | Encounter Summary ---
Author Organization [facility] Address [address] [place] [address] Phone Care Team Providers Care Methods Examiner Name Role Phone Cheikh Ackerman MD Primary Care Prov ider Pepe Nicole MD Unavailable [phone] Francisco Javier Uriostegui MD Unavailable Encounter [...] on file Legal Sex Female 11:58 PM CHINA PAINTER Gender Identity Female 04/03/2018 2:53 PM CHINA PAINTER Sexual Orientation Not on file documented as [...] on filedocumented in this encounter Care Teams Methods Examiner Relationship Specialty Start Date End Date Cheikh Ackerman MD [address] [place] [address] PCP - General 06/11/16 Pepe Nicole MD [address] [place] [address] Referring Physician Nephrology 04/24/20 Francisco Javier Uriostegui MD [address] [place] [address] Consulting Physician Cardiology 11/22/22 documented as of this encounter
--- OUTSIDE RECORDS SUMMARY | 2024-05-29 11:44 | XMS_ITS | Encounter Summary ---
Author Organization [facility] Address [address] [place] [address] Care Team Providers Care Vegetable Worker Name Role Phone Linda Euceda Primary Care Provider [phone] Encounter Details Date Type Department Care Team (Late st Contact Info) Description 05/20/2021 Cynny Message Enc [facility] Family & Internal Medicine [facility] [id number] [place] [phone] [place] [address] [place] [address] 05/26/21 Appointment Social History Tobacco [...] on file Legal Sex Female 5:38 PM PRESIDENT & CEO Gender Identity Not on file Sexual Orientation Not on file COVID-19 Exposure Response Date Recorded In the last 10 days, have yo u been in contact with someone who was confirmed or suspected to have Coronavirus/COVID-19? No / Unsure 04/21/2021 3:52 PM PRESIDENT & CEO documented as of this encounter Plan of Treatment Not on file documented as of this encounter Visit Diagnoses Not on filedocumented in this encounter Additional Health Concerns Assessment Noted Time PHQ-9 Depression Total Score: 8 04/21/19 22 4:17 PM PRESIDENT & CEO documented as of this encounter Care Teams Vegetable Worker Relationship Specialty [place] [address] [place] [address] PCP - General PHYSICIAN BUSINESS PLANNING DIRECTOR 04/08/21 documented as of this encounter
--- OUTSIDE RECORDS SUMMARY | 2024-05-29 11:44 | XMS_ITS | Referral Summary ---
Author Organization [facility] Address [address] [place] [address] Care Team Providers Care Energy Specialist Name Role Phone Cheikh Ackerman MD Primary Care Prov ider Pepe Nicole MD Unavailable [phone] Francisco Javier Uriostegui MD Unavailable Encounters Date Type Department Care Team Description 05/29/2024 Telephone [facility] [address] [facility] 5th [place] [address] [place] [address] Pepe Nicole MD Medication change 05/18/2024 1:40 PM COORDINATOR HOTELS - 05/18/2024 11:59 PM COORDINATOR HOTELS Hospital Encounter [address] [address] Bilateral knee swelling; Chronic pain of both knees Discharge Disposition: Discharge to home or self care 05/18/2024 1:00 PM COORDINATOR HOTELS Office Visit [facility] Sports Medicine and Primary Care at [address] [place] [phone] Ash Godwin DO Bilateral knee swelling (Primary Dx); Chronic pain of both knees 05/14/2024 9:00 AM COORDINATOR HOTELS Office Visit [facility] Primary Care at [address] [place] [address] Ash Godwin DO Primary osteoarthritis of both knees (Primary Dx) 05/03/2024 Telephone [facility] [address] [facility] Office Building [address] [place] [address] Crissy Mcadams NP 05/01/2024 1:30 PM COORDINATOR HOTELS Office Visit [facility] [address] [facility] Office Building [address] [place] [address] Crissy Mcadams NP Polymyalgia rheumatica syndrome (Primary Dx); FPC (current) use of systemic steroids 04/20/2024 Telephone [facility] 5th [place] [address] [place] [address] Aspen Zapata 03/20/2024 1:00 PM COORDINATOR HOTELS Office Visit [facility] [address] [facility] 5th [place] [address] [place] [phone] CKD (chronic kidney disease) stage 4, GFR 15-29 ml/min (HCC) (Primary Dx); Essential hypertension; Proteinuria, unspecified type; Anemia in stage 4 chronic kidney disease (HCC); Renal osteodystrophy 03/12/2024 3:31 PM COORDINATOR HOTELS - 03/12/2024 11:59 PM COORDINATOR HOTELS Hospital Encounter [address] [phone] CKD (chronic kidney disease) stage 4, GFR 15-29 ml/min (HCC); Vitamin D deficiency; Proteinuria, unspecified type Discharge Disposition: Discharge to home or self care 03/12/2024 11:24 AM COORDINATOR HOTELS - 03/12/2024 11:59 PM COORDINATOR HOTELS Hospital Encounter [address] [address] termite control service representative (current) use of systemic steroids Discharge Disposition: Discharge to home or self care 03/12/2024 12:30 PM COORDINATOR HOTELS Ancillary Procedure [facility] Imaging at [address] [phone] FPC (current) use of systemic steroids 03/12/2024 12:15 PM COORDINATOR HOTELS Ancillary Procedure [facility] Imaging at [address] [phone] FPC (current) use of systemic steroids 03/12/2024 11:15 AM COORDINATOR HOTELS Lab [facility] Outpatient Lab at [address] [address] Mixed hyperlipidemia (Primary Dx); Type [...] long-term current use of insulin ([facility]) USE WITH INSULIN PUMP, MAXIMUM DAILY DOSE IS 120 UNITS 110 mL 2 01/05/20 24 Active insulin lispro (HumaLOG) 100 unit/mL vial for injectionIndic ations:Type 2 diabetes mellitus without complication, with long-term current use of insulin ([facility]) Use the insulin for insulin pump [...] mg daily 90 tablet 3 02/06/20 24 02/20/2 025 Discontinued(Th erapy completed) furosemide (LASIX) 40 [...] insulin 10/25/2023 ILD (interstitial lung disease) 10/05/2023 sales producer associated with adverse incidents 08/05/2023 BOOP (bronchiolitis [...] on prednisone - advised to contact her medical office technology instructor to discuss her blood pressure and edema [...] on file Legal Sex Female 11:58 PM COORDINATOR HOTELS Gender Identity Female 04/03/2018 2:53 PM COORDINATOR HOTELS Sexual Orientation Not on file Last Filed Vital Signs Vital Sign Reading Time Taken Comments Blood Pressure 117/70 05/18/2024 1:18 PM COORDINATOR HOTELS Pulse 93 05/18/2024 1:18 PM COORDINATOR HOTELS Temperature 36.6 C (97.8 F) 05/01/2024 1:26 PM COORDINATOR HOTELS Respiratory Rate 20 10/05/2023 10:52 AM CDT Oxygen Saturation 97% 05/01/2024 1:26 PM COORDINATOR HOTELS Inhaled Oxygen Concentration - - Weight 85.7 kg (189 lb) 05/18/2024 1:18 PM COORDINATOR HOTELS Height 165.1 cm (5' 5 ) 05/18/2024 1:18 PM COORDINATOR HOTELS Body Mass Index 31.45 05/18/2024 1:18 PM COORDINATOR HOTELS Plan of Treatment Not on file Procedures Procedure Name Priority Date/Time Associated Diagnosis Comments CRYSTAL ANALYSIS, BODY FLUID Routine 05/18/2024 1:40 PM COORDINATOR HOTELS Bilateral knee swelling Chronic pain of both knees UT ARTHROCENTESIS ASPIR&/INJ MAJOR JT/BURSA W/US Routine 05/18/2024 1:00 PM COORDINATOR HOTELS Bilateral knee swelling Chronic pain of both knees XR KNEE RIGHT 3 VIEWS Schedule Routine, Read Routine (OP Routine) 03/12/2024 11:34 AM COORDINATOR HOTELS termite control service representative (current) use of systemic steroids XR KNEE LEFT 3 VIEWS Schedule Routine, Read Routine (OP Routine) 03/12/2024 11:34 AM COORDINATOR HOTELS termite control service representative (current) use of systemic steroids EGFR Routine 03/12/2024 11:25 AM COORDINATOR HOTELS CKD (chronic kidney disease) stage 4, GFR 15-29 ml/min (HCC) Vitamin D deficiency Proteinuria, unspecified type RENAL FUNCTION PANEL Routine 03/12/2024 11:25 AM COORDINATOR HOTELS CKD (chronic kidney disease) stage 4, GFR 15-29 ml/min (HCC) Vitamin D deficiency Proteinuria, unspecified type VITAMIN D 25 HYDROXY Routine 03/12/2024 11:25 AM COORDINATOR HOTELS CKD (chronic kidney disease) stage 4, GFR 15-29 ml/min (HCC) Vitamin D deficiency Proteinuria, unspecified type PROTEIN / CREATININE RATIO, URINE, RANDOM Routine 03/12/2024 11:25 AM COORDINATOR HOTELS CKD (chronic kidney disease) stage 4, GFR 15-29 ml/min (HCC) Vitamin D deficiency Proteinuria, unspecified type CRP (ACUTE PHASE) Routine 03/12/2024 11: 25 AM COORDINATOR HOTELS FPC (current) use of systemic steroids ERYTHROCYTE SEDIMENTATION RATE Routine 03/12/2024 11:25 AM COORDINATOR HOTELS FPC (current) use of systemic steroids IRON PROFILE W/ IBC Routine 03/12/2024 1 1:25 AM COORDINATOR HOTELS FPC (current) use of systemic steroids VITAMIN B12 Routine 03/12/2024 11:25 AM COORDINATOR HOTELS termite control service representative (current) use of systemic steroids POCT HEMOGLOBIN A1C Routine 10/25/2023 9 :17 AM CDT Type 2 diabetes mellitus without complication, with long-term current use of insulin (HCC) POCT LIPID PANEL Routine 08/10/2023 2:56 PM CDT Lipid screening from Last 3 Months or Most Recently Relevant to Health Maintenance Results * Crystal Analysis, Body Fluid (05/18/2024 1:40 PM COORDINATOR HOTELS) Specimen type, fld Synovial Crystals Not Present ALICE WATT Fluid 05/18/2024 1:40 PM COORDINATOR HOTELS 05/18/2024 10:31 PM COORDINATOR HOTELS Narrative ALICE WATT - 05/21/2024 7:50 AM CDT Specify:->Right knee us Ash Godwin DO LAB BODY FLUIDS AND ST OOLS ORDERABLES Final Result ALICE [address] [place] [address] * UT ARTHROCENTESIS ASPIR&/INJ MAJOR JT/BURSA W/US (05/18/2024 1:00 PM COORDINATOR HOTELS) Narrative Ash Godwin DO - 05/18/2024 1:00 PM COORDINATOR HOTELS Ash Godwin DO 05/18/2024 1:44 PM Large [...] May Performing physician: Ash Godwin DO, ROSELYN, BAMBIM Reason for procedure: Left knee swelling and [...] Rosanne May Performing physician: Ash Godwin DO, FAOSHERIF, CAQSM Reason for procedure: Right knee pain [...] knee right 3 views (03/12/2024 11:34 AM COORDINATOR HOTELS) Anatomical Region Laterality Modality Lower Extremities, Knee Right Digital Radiography 03/12/2024 7:48 PM COORDINATOR HOTELS Narrative 03/12/2024 7:49 PM COORDINATOR HOTELS EXAM DESCRIPTION: XR KNEE LEFT 3 VIEWS; [...] by Ash Rubio M.D. T: Report ID: [id number] Reading Location: [id number] Procedure Note Ash Rubio MD - 03/12/2024 [...] by Ash Rubio M.D. T: Report ID: [id number] Reading Location: [id number] Crissy Mcadams RETARDER OPERATOR IMG XR PROCEDURES Final Result * X-ray knee left 3 views (03/12/2024 11:34 AM COORDINATOR HOTELS) Anatomical Region Laterality Modality Lower Extremities, Knee Left Digital Radiography 03/12/2024 7:48 PM COORDINATOR HOTELS Narrative 03/12/2024 7:49 PM COORDINATOR HOTELS EXAM DESCRIPTION: XR KNEE LEFT 3 VIEWS; [...] by Ash Rubio M.D. T: Report ID: [id number] Reading Location: [id number] Procedure Note Ash Rubio MD - 03/12/2024 [...] by Ash Rubio M.D. T: Report ID: [id number] Reading Location: [id number] Crissy Mcadams NP IMG XR PROCEDURES Final Result * (ABNORMAL) eGFR (03/12/2024 11:25 AM COORDINATOR HOTELS) eGFR 35(L) >=60 mL/min/1. 73 m2 Comment: [...] reviewed 2021. Blood 03/12/2024 11:2 5 AM COORDINATOR HOTELS 03/12/2024 8:18 PM COORDINATOR HOTELS Brittnee Blackwell MD LAB BLOOD ORDERABLES Fi nal Result Performing Organization Address [facility]/ZIP Co de Phone Number ALICE [phone] [place] [address] * (ABNORMAL) Iron profile w/ IBC (03/12/2024 11:25 AM COORDINATOR HOTELS) Iron 37 35 - 145 mcg/dl TIBC 200(L) 250 - 400 mcg/dL [facility] Transferrin saturation 19(L) 20 - 50 % [facility] Blood 03/12/2024 11:2 5 AM COORDINATOR HOTELS 03/12/2024 8:18 PM COORDINATOR HOTELS Crissy Mcadams NP LAB BLOOD ORDERABLES Fi nal Result Performing Organization Address [facility]/ZIP Co de Phone Number ALICE [phone] [address] [address] * (ABNORMAL) Protein / creatinine ratio, urine, random (03/12/2024 11:25 AM COORDINATOR HOTELS) Pathologist [facility] Protein, ur, quant 196.5 mg/dL Comment: Interpretive Data No reference range established. Current interpretive data was last revised 2018. Creatinine Ur 164.2 mg/dL [facility] Comment: Interpretive Data No reference range established. Current interpretive data was last revised 2018. Protein/creatinin e ratio 1,196.7(H ) 0.0 - 180.0 mg/g CR [facility] Urine 03/12/2024 11:2 5 AM COORDINATOR HOTELS 03/12/2024 8:38 PM COORDINATOR HOTELS Brittnee Blackwell MD LAB URINE ORDERABLES Fi nal Result Performing Organization Address [facility] Co de Phone Number [facility] [address] [address] [facility] [place] [address] * (ABNORMAL) Vitamin D 25 hydroxy (03/12/2024 11:25 AM COORDINATOR HOTELS) Pathologist [facility] Vitamin D 25-OH 28(L) 30 - 80 ng/mL Blood 03/12/2024 11:2 5 AM COORDINATOR HOTELS 03/12/2024 8:18 PM COORDINATOR HOTELS Brittnee Blackwell MD LAB BLOOD ORDERABLES Fi nal Result [facility] [address] [address] [facility] [place] [address] * Erythrocyte sedimentation rate (03/12/2024 11:25 AM COORDINATOR HOTELS) Pathologist [facility] Erythrocyte sedimentation rate 16 1 - 30 mm/hr Blood 03/12/2024 11:2 5 AM COORDINATOR HOTELS 03/12/2024 8:18 PM COORDINATOR HOTELS Crissy Mcadams NP LAB BLOOD ORDERABLES Fi nal Result Performing Organization Address [facility] Co de Phone Number ALICE WATT [address] [address] [facility] [place] [address] * (ABNORMAL) CRP (acute phase) (03/12/2024 11:25 AM COORDINATOR HOTELS) [facility] CRP 18.4(H) <=10.0 mg/L Blood 03/12/2024 11:2 5 AM COORDINATOR HOTELS 03/12/2024 8:18 PM COORDINATOR HOTELS us Crissy Mcadams RETARDER OPERATOR LAB BLOOD ORDERABLES Fi nal Result Performing Organization Address [facility] Co de Phone Number ALICE WATT [phone] [address] [facility] [place] [address] * Vitamin B12 (03/12/2024 11:25 AM COORDINATOR HOTELS) [facility] Vitamin B12 545 230 - 1,250 pg/mL Blood 03/12/2024 11:2 5 AM COORDINATOR HOTELS 03/12/2024 8:18 PM COORDINATOR HOTELS us Crissy Mcadams RETARDER OPERATOR LAB BLOOD ORDERABLES Fi nal Result Performing Organization Address [facility] de Phone Number ALICE WATT [address] [address] [facility] [place] [address] * (ABNORMAL) Renal function panel (03/12/2024 11:25 AM COORDINATOR HOTELS) [facility] Sodium 144 135 - 145 mmol/L Potassium, pl 4.7 3.3 - 4.9 mmol/L [facility] Chloride 112(H) 97 - 110 mmol/L [facility] CO2 17(L) 22 - 32 mmol/L [facility] Anion gap 15 2 - 15 mmol/L [facility] BUN 25 6 - 25 mg/dL [facility] Creatinine 1.69(H) 0.60 - 1.10 mg/dL [facility] Glucose 108 70 - 199 mg/dL [facility] Comment: Interpretive Data Fasting glucose >/= 126 [...] 2022. Calcium 9.3 8.5 - 10.3 mg/dL [facility] Phosphorus, pl 2.9 2.3 - 4.5 mg/dL [facility] Albumin 3.9 3.5 - 5.0 g/dL [facility] Blood 03/12/2024 11:2 5 AM COORDINATOR HOTELS 03/12/2024 8:18 PM COORDINATOR HOTELS Brittnee Blackwell MD LAB BLOOD ORDERABLES Fi nal Result [facility] [address] [address] Department [place] [address] * POCT hemoglobin A1c (10/25/2023 9:17 AM [...] Most Recently Relevant to Health Maintenance Insurance [employer] ACCESS CHOICE [employer] ACCESS CHOICE Care Teams Energy Specialist Relationship Specialty Start Date End Date Cheikh Ackerman MD [address] [place] [address] PCP - General 3/31/17 Pepe Nicole MD [address] [place] [address] Referring Physician Nephrology 04/24/20 Francisco Javier Uriostegui MD [address] [facility] [address] [facility] [address] [place] [address] Consulting Physician Cardiology 11/22/22
--- OUTSIDE RECORDS SUMMARY | 2024-05-29 11:44 | XMS_ITS | Clinical Summary ---
Author Organization [facility] Address [address] [place] [address] Care Team Providers Care Criminal Justice Program Director Name Role Phone David Euceda Primary Care Provider [phone] Allergies Active Allergy Reactions Criticality Noted Date [...] on file Legal Sex Female 5:38 PM PROCESS CONTROL ENGINEER Gender Identity Not on file Sexual Orientation Not on file Last Filed Vital Signs Vital Sign Reading Time Taken Comments Blood Pressure 152/90 04/21/2021 4:02 PM PROCESS CONTROL ENGINEER Pulse 78 04/21/2021 4:02 PM PROCESS CONTROL ENGINEER Temperature 37.1 C (98.7 F) 04/21/2021 4:02 PM PROCESS CONTROL ENGINEER Respiratory Rate 18 04/21/2021 4:02 PM PROCESS CONTROL ENGINEER Oxygen Saturation 98% 04/21/2021 4:02 PM PROCESS CONTROL ENGINEER Inhaled Oxygen Concentration - - Weight 91.2 kg (201 lb) 04/21/2021 4:02 PM PROCESS CONTROL ENGINEER Height 165.1 cm (5' 5 ) 04/21/2021 4:02 PM PROCESS CONTROL ENGINEER Body Mass Index 33.45 04/21/2021 4:02 PM PROCESS CONTROL ENGINEER Plan of Treatment Health Maintenance Due [...] PAPILLOMAVIRUS, HIGH-RISK TYPES Routine 04/21/2021 12:00 PM PROCESS CONTROL ENGINEER CYTOPATH CERV/VAG THIN LAYER Routine 04/21/2021 8:03 AM PROCESS CONTROL ENGINEER from Last 3 Months or Most Recently Relevant to Health Maintenance Results * HUMAN PAPILLOMAVIRUS, HIGH-RISK TYPES (04/21/2021 12:00 PM PROCESS CONTROL ENGINEER) SPEC DESCRIPTION CERVICAL/END OCERVICAL 04/23/2021 9:25 AM PROCESS CONTROL ENGINEER [facility] HPV DNA HIGH RISK NEGATIVE NEGATIVE 04/24/2021 11:54 AM PROCESS CONTROL ENGINEER [facility] Comment:SEE CYTOLOGY REPORT 04/21/2021 12:0 0 PM PROCESS CONTROL ENGINEER David GÓMEZ PATHOLOGY/CYTOLOGY ORDERABLE S Final Result [facility] [address] [place] [address], * Cytopath Cerv/Vag Thin Layer (04/21/2021 8:03 AM PROCESS CONTROL ENGINEER) THIN PREP PAP [facility] [address] [place] [address] Department of Pathology Pathology Report CERVICAL/VAGINAL PAP SMEAR REPORT Name: ROSANNE SIDHU Age: 2 1965 (Age: 55) Location: [facility] Sex: F Collected Date: 04/21/2021 [facility] #: [id number] Date Received: 04/23/2021 Date Reported: 04/28/2021 Provider: [...] [facility] 04/21/2021 8:03 AM PROCESS CONTROL ENGINEER 04/23/2021 8:03 AM PROCESS CONTROL ENGINEER Comment:CERVICAL/ENDOCERVICA L us David GÓMEZ PATHOLOGY/CYTOLOGY ORDERABLE S Final Result [facility] [address] [place] [address], from Last 3 Months or Most Recently Relevant to Health Maintenance Insurance [facility] Care Teams Criminal Justice Program Director Relationship Specialty [place] [address] [place] [address] PCP - General PHYSICIAN SUPERINTENDENT BUILDING 04/08/21
[2024-05-29 13:06] LABS: Anion Gap 12 mmol/L (4-12); Blood Urea Nitrogen 22 mg/dL (7-17); Calcium 8.6 mg/dL (8.4-10.2); Carbon Dioxide 19 mmol/L (22-30); Chloride 112 mmol/L (98-107); Estimated Glomerular Filt Rate 29; Glucose 39 mg/dL (65-110); Potassium 5.5 mmol/L (3.4-5.0); Sodium 143 mmol/L (137-145)
== END 2024-05-29 10:20 | disposition home or self-care (01) ==
PROVIDERS: PCP Family Medicine Adolescent Medicine; Visit Provider Family Medicine
DX: E87.6 Hypokalemia (principal)
CPT/HCPCS: 36415; 80048

== ENCOUNTER 2024-06-01 16:55 | Outpatient (CLI) | payer BC, SELFPAY ==
--- OUTSIDE RECORDS SUMMARY | 2024-06-01 17:01 | XMS_ITS | Encounter Summary ---
Author Organization [facility] Address [address] [place] [address] Phone Care Team Providers Care Fulfillment Coordinator Name Role Phone Cheikh Ackerman MD Primary Care Prov ider Pepe Nicole MD Unavailable [phone] Francisco Javier Uriostegui MD Unavailable Encounter [...] on file Legal Sex Female 11:58 PM ENAMEL PULVERIZER Gender Identity Female 04/03/2018 2:53 PM ENAMEL PULVERIZER Sexual Orientation Not on file documented as of this encounter Plan of Treatment Not on file documented as of this encounter Procedures Procedure Name Priority Date/Time Associated Diagnosis Comments SCAN - LABS 01/13/2021 documented in this encounter Results * SCAN - LABS (01/13/2021) us Provider Scanning Final Result documented in this encounter Visit Diagnoses Not on filedocumented in this encounter Care Teams Fulfillment Coordinator Relationship Specialty Start Date End Date Cheikh Ackerman MD [address] [place] [address] PCP - General 06/11/16 Pepe Nicole MD [address] [place] [address] Referring Physician Nephrology 04/24/20 Francisco Javier Uriostegui MD [address] [place] [address] Consulting Physician Cardiology 11/22/22 documented as of this encounter
--- OUTSIDE RECORDS SUMMARY | 2024-06-01 17:01 | XMS_ITS | Referral Summary ---
Author Organization [facility] Address [address] [place] [address] Care Team Providers Care Manager Trade Marketing Name Role Phone Cheikh Ackerman MD Primary Care Prov ider Pepe Nicole MD Unavailable [phone] Francisco Javier Uriostegui MD Unavailable Encounters Date Type Department Care Team Description 05/29/2024 Telephone [facility] Nephrology [address] [facility] 5th [place] [address] [place] [address] Pepe Nicole MD Medication change 05/18/2024 1:40 PM RV TECHNICIAN - 05/18/2024 11:59 PM RV TECHNICIAN Hospital Encounter [address] [address] Bilateral knee swelling; Chronic pain of both knees Discharge Disposition: Discharge to home or self care 05/18/2024 1:00 PM RV TECHNICIAN Office Visit [facility] Sports Medicine and Primary Care at [address] [place] [address] Ash Godwin DO Bilateral knee swelling (Primary Dx); Chronic pain of both knees 05/14/2024 9:00 AM RV TECHNICIAN Office Visit [facility] Sports Medicine and Primary Care at [address] [place] [address] Ash Godwin DO Primary osteoarthritis of both knees (Primary Dx) 05/03/2024 Telephone [facility] Rheumatology [address] [facility] Office Building 2 [address] [place] [address] Crissy Mcadams NP 05/01/2024 1:30 PM RV TECHNICIAN Office Visit [facility] Rhe[facility]ology [address] [facility] Office Building 2 [address] [place] [address] Crissy Mcadams NP Polymyalgia rheumatica syndrome (Primary Dx); custodial (current) use of systemic steroids 04/20/2024 Telephone [facility] Neph[facility] Medicine 5th [place] [address] [place] [address] Aspen Zapata 03/20/2024 1:00 PM RV TECHNICIAN Office Visit [facility] Nephrology [address] [facility] 5th [place] [address] [place] [address] CKD (chronic kidney disease) stage 4, GFR 15-29 ml/min (HCC) (Primary Dx); Essential hypertension; Proteinuria, unspecified type; Anemia in stage 4 chronic kidney disease (HCC); Renal osteodystrophy 03/12/2024 3:31 PM RV TECHNICIAN - 03/12/2024 11:59 PM RV TECHNICIAN Hospital Encounter [address] [id number] CKD (chronic kidney disease) stage 4, GFR 15-29 ml/min (HCC); Vitamin D deficiency; Proteinuria, unspecified type Discharge Disposition: Discharge to home or self care 03/12/2024 11:24 AM RV TECHNICIAN - 03/12/2024 11:59 PM RV TECHNICIAN Hospital Encounter [address] [address] exterminator helper (current) use of systemic steroids Discharge Disposition: Discharge to home or self care 03/12/2024 12:30 PM RV TECHNICIAN Ancillary Procedure [facility] Imaging at [address] [address] custodial (current) use of systemic steroids 03/12/2024 12:15 PM RV TECHNICIAN Ancillary Procedure [facility] Imaging at [address] [phone] custodial (current) use of systemic steroids 03/12/2024 11:15 AM RV TECHNICIAN Lab [facility] Outpatient Lab at [address] [address] Mixed hyperlipidemia (Primary Dx); Type [...] long-term current use of insulin ([facility]) USE WITH INSULIN PUMP, MAXIMUM DAILY DOSE IS 120 UNITS 110 mL 2 01/05/20 24 Active insulin lispro (HumaLOG) 100 unit/mL vial for injectionIndic ations:Type 2 diabetes mellitus without complication, with long-term current use of insulin ([facility]) Use the insulin for insulin [...] 3 03/20/19 25 026 Active blood-glucose sensor ([employer] G7 Sensor) device CHANGE SENSOR EVERY 10 [...] EXTREMITY SWELLING 90 tablet 05/10/19 25 Active metoprolol XL (TOPROL-XL) 50 mg extended [...] insulin 10/25/2023 ILD (interstitial lung disease) 10/05/2023 director of programming associated with adverse incidents 08/05/2023 BOOP (bronchiolitis [...] on prednisone - advised to contact her milking worker to discuss her blood pressure and edema [...] on file Legal Sex Female 11:58 PM RV TECHNICIAN Gender Identity Female 04/03/2018 2:53 PM RV TECHNICIAN Sexual Orientation Not on file Last Filed Vital Signs Vital Sign Reading Time Taken Comments Blood Pressure 117/70 05/18/2024 1:18 PM RV TECHNICIAN Pulse 93 05/18/2024 1:18 PM RV TECHNICIAN Temperature 36.6 C (97.8 F) 05/01/2024 1:26 PM RV TECHNICIAN Respiratory Rate 20 10/05/2023 10:52 AM CDT Oxygen Saturation 97% 05/01/2024 1:26 PM RV TECHNICIAN Inhaled Oxygen Concentration - - Weight 85.7 kg (189 lb) 05/18/2024 1:18 PM RV TECHNICIAN Height 165.1 cm (5' 5 ) 05/18/2024 1:18 PM RV TECHNICIAN Body Mass Index 31.45 05/18/2024 1:18 PM RV TECHNICIAN Plan of Treatment Not on file Procedures Procedure Name Priority Date/Time Associated Diagnosis Comments CRYSTAL ANALYSIS, BODY FLUID Routine 05/18/2024 1:40 PM RV TECHNICIAN Bilateral knee swelling Chronic pain of both knees AK ARTHROCENTESIS ASPIR&/INJ MAJOR JT/BURSA W/US Routine 05/18/2024 1:00 PM RV TECHNICIAN Bilateral knee swelling Chronic pain of both knees XR KNEE RIGHT 3 VIEWS Schedule Routine, Read Routine (OP Routine) 03/12/2024 11:34 AM RV TECHNICIAN exterminator helper (current) use of systemic steroids XR KNEE LEFT 3 VIEWS Schedule Routine, Read Routine (OP Routine) 03/12/2024 11:34 AM RV TECHNICIAN custodial (current) use of systemic steroids EGFR Routine 03/12/2024 11:25 AM RV TECHNICIAN CKD (chronic kidney disease) stage 4, GFR 15-29 ml/min (HCC) Vitamin D deficiency Proteinuria, unspecified type RENAL FUNCTION PANEL Routine 03/12/2024 11:25 AM RV TECHNICIAN CKD (chronic kidney disease) stage 4, GFR 15-29 ml/min (HCC) Vitamin D deficiency Proteinuria, unspecified type VITAMIN D 25 HYDROXY Routine 03/12/2024 11:25 AM RV TECHNICIAN CKD (chronic kidney disease) stage 4, GFR 15-29 ml/min (HCC) Vitamin D deficiency Proteinuria, unspecified type PROTEIN / CREATININE RATIO, URINE, RANDOM Routine 03/12/2024 11:25 AM RV TECHNICIAN CKD (chronic kidney disease) stage 4, GFR 15-29 ml/min (HCC) Vitamin D deficiency Proteinuria, unspecified type CRP (ACUTE PHASE) Routine 03/12/2024 11: 25 AM RV TECHNICIAN custodial (current) use of systemic steroids ERYTHROCYTE SEDIMENTATION RATE Routine 03/12/2024 11:25 AM RV TECHNICIAN custodial (current) use of systemic steroids IRON PROFILE W/ IBC Routine 03/12/2024 1 1:25 AM RV TECHNICIAN exterminator helper (current) use of systemic steroids VITAMIN B12 Routine 03/12/2024 11:25 AM RV TECHNICIAN custodial (current) use of systemic steroids POCT HEMOGLOBIN A1C Routine 10/25/2023 9 :17 AM CDT Type 2 diabetes mellitus without complication, with long-term current use of insulin ([facility]) POCT LIPID PANEL Routine 08/10/2023 2:56 PM CDT Lipid screening from Last 3 Months or Most Recently Relevant to Health Maintenance Results * Crystal Analysis, Body Fluid (05/18/2024 1:40 PM RV TECHNICIAN) Specimen type, fld Synovial Crystals Not Present CERNER Fluid 05/18/2024 1:40 PM RV TECHNICIAN 05/18/2024 10:31 PM RV TECHNICIAN Narrative ALICE WATT - 05/21/2024 7:50 AM CDT Specify:->Right knee Ash Godwin DO LAB BODY FLUIDS AND ST OOLS ORDERABLES Final Result AILCE WATT [address] Department [place] [address] * AK ARTHROCENTESIS ASPIR&/INJ MAJOR JT/BURSA W/US (05/18/2024 1:00 PM RV TECHNICIAN) Narrative Ash Godwin DO - 05/18/2024 1:00 PM RV TECHNICIAN Ash Godwin DO 05/18/2024 1:44 PM [...] May Performing physician: Ash Godwin DO, ROSELYN, BAMBI Reason for procedure: Right knee pain and [...] knee right 3 views (03/12/2024 11:34 AM RV TECHNICIAN) Anatomical Region Laterality Modality Lower Extremities, Knee Right Digital Radiography 03/12/2024 7:48 PM RV TECHNICIAN Narrative 03/12/2024 7:49 PM RV TECHNICIAN EXAM DESCRIPTION: XR KNEE LEFT 3 [...] by Ash Rubio M.D. T: Report ID: [id number] Reading Location: [id number] Procedure Note Ash Rubio MD - 03/12/2024 [...] by Ash Rubio M.D. T: Report ID: [id number] Reading Location: [id number] Crissy Mcadams NP IMG XR PROCEDURES Final Result * X-ray knee left 3 views (03/12/2024 11:34 AM RV TECHNICIAN) Anatomical Region Laterality Modality Lower Extremities, Knee Left Digital Radiography 03/12/2024 7:48 PM RV TECHNICIAN Narrative 03/12/2024 7:49 PM RV TECHNICIAN EXAM DESCRIPTION: XR KNEE LEFT 3 [...] by Ash Rubio M.D. T: Report ID: [id number] Reading Location: [id number] Procedure Note Ash Rubio MD - 03/12/2024 [...] by Ash Rubio M.D. T: Report ID: [id number] Reading Location: [id number] Crissy Mcadams SHELLFISH CHECKER IMG XR PROCEDURES Final Result * (ABNORMAL) eGFR (03/12/2024 11:25 AM RV TECHNICIAN) eGFR 35(L) >=60 mL/min/1. 73 m2 Comment: [...] reviewed 2021. Blood 03/12/2024 11:2 5 AM RV TECHNICIAN 03/12/2024 8:18 PM RV TECHNICIAN Brittnee Blackwell MD LAB BLOOD ORDERABLES Fi nal Result ALICE ALYSA [address] [place] [address] * (ABNORMAL) Iron profile w/ IBC (03/12/2024 11:25 AM RV TECHNICIAN) [facility] Iron 37 35 - 145 mcg/dl TIBC 200(L) 250 - 400 mcg/dL [facility] Transferrin saturation 19(L) 20 - 50 % [facility] Blood 03/12/2024 11:2 5 AM RV TECHNICIAN 03/12/2024 8:18 PM RV TECHNICIAN Crissy Mcadams NP LAB BLOOD ORDERABLES Fi nal Result ALICE [address] [address] Department of [employer] [place], [place] [id number] * (ABNORMAL) Protein / creatinine ratio, urine, random (03/12/2024 11:25 AM RV TECHNICIAN) Pathologist [facility] Protein, ur, quant 196.5 mg/dL Comment: Interpretive Data No reference range established. Current interpretive data was last revised 2018. Creatinine Ur 164.2 mg/dL ALICE Comment: Interpretive Data No reference range established. Current interpretive data was last revised 2018. Protein/creatinin e ratio 1,196.7(H ) 0.0 - 180.0 mg/g CR ALICE Urine 03/12/2024 11:2 5 AM RV TECHNICIAN 03/12/2024 8:38 PM RV TECHNICIAN Brittnee Blackwell MD LAB URINE ORDERABLES Fi nal Result Performing Organization Address City/[facility] Co de Phone Number H[place]ES[place] WATT [address] [address] [place] [address] * (ABNORMAL) Vitamin D 25 hydroxy (03/12/2024 11:25 AM RV TECHNICIAN) Pathologist [facility] Vitamin D 25-OH 28(L) 30 - 80 ng/mL Blood 03/12/2024 11:2 5 AM RV TECHNICIAN 03/12/2024 8:18 PM RV TECHNICIAN Brittnee Blackwell MD LAB BLOOD ORDERABLES Fi nal Result Performing Organization Address City/[facility] Co de Phone Number ALICE [address] [address] Department [employer] [place], [place] [id number] * Erythrocyte sedimentation rate (03/12/2024 11:25 AM RV TECHNICIAN) [facility] Erythrocyte sedimentation rate 16 1 - 30 mm/hr Blood 03/12/2024 11:2 5 AM RV TECHNICIAN 03/12/2024 8:18 PM RV TECHNICIAN Crissy Mcadams NP LAB BLOOD ORDERABLES Fi nal Result Performing Organization Address City/[facility] Co de Phone Number HITESHALEX [address] [address] Department [place] [address] * (ABNORMAL) CRP (acute phase) (03/12/2024 11:25 AM RV TECHNICIAN) [facility] CRP 18.4(H) <=10.0 mg/L Blood 03/12/2024 11:2 5 AM RV TECHNICIAN 03/12/2024 8:18 PM RV TECHNICIAN us Crissy Mcadams SHELLFISH CHECKER LAB BLOOD ORDERABLES Fi nal Result Performing Organization Address [facility] de Phone Number [facility] [address] [address] [place] [address] * Vitamin B12 (03/12/2024 11:25 AM RV TECHNICIAN) [facility] Vitamin B12 545 230 - 1,250 pg/mL Blood 03/12/2024 11:2 5 AM RV TECHNICIAN 03/12/2024 8:18 PM RV TECHNICIAN us Crissy Mcadams SHELLFISH CHECKER LAB BLOOD ORDERABLES Fi nal Result Performing Organization Address [facility] de Phone Number [facility] [address] [address] [place] [address] * (ABNORMAL) Renal function panel (03/12/2024 11:25 AM RV TECHNICIAN) [facility] Sodium 144 135 - 145 mmol/L Potassium, pl 4.7 3.3 - 4.9 mmol/L [facility] Chloride 112(H) 97 - 110 mmol/L [facility] CO2 17(L) 22 - 32 mmol/L [facility] Anion gap 15 2 - 15 mmol/L [facility] BUN 25 6 - 25 mg/dL [facility] Creatinine 1.69(H) 0.60 - 1.10 mg/dL [facility] Glucose 108 70 - 199 mg/dL [facility] Comment: Interpretive Data Fasting glucose >/= 126 [...] g/dL CERNER Blood 03/12/2024 11:2 5 AM RV TECHNICIAN 03/12/2024 8:18 PM RV TECHNICIAN Brittnee Blackwell MD LAB BLOOD ORDERABLES nal Result ALICE [address] [address] Department [place] [address] * POCT hemoglobin A1c (10/25/2023 9:17 AM [...] ACCESS CHOICE ANTHEM ACCESS CHOICE Care Teams Manager Trade Marketing Relationship Specialty Start Date End Date Cheikh Ackerman MD [address] [place] [address] PCP - General 06/11/16 Pepe Nicole MD [address] [address] Referring Physician Nephrology 04/24/20 Francisco Javier Uriostegui MD [address] [facility] [address] [place] [address] Consulting Physician Cardiology 11/22/22
--- OUTSIDE RECORDS SUMMARY | 2024-06-01 17:01 | XMS_ITS | Encounter Summary ---
Author Organization [facility] Facility Care Team Providers Care Hooker Off Name Role Phone Cheikh Ackerman MD Primary Care Prov ider Cheikh Ackerman MD Primary Care Prov ider Cheikh Ackerman MD Primary Care Prov ider Pepe Nicole MD Unavailable [phone] Francisco Javier Uriostegui MD Unavailable Encounter Details Date Type Department Care Team (Latest Contact Info) Description 02/18/2016 Orders Only [facility] CLINCONV ProviderYohan MD [address] [place] [address] Social History Tobacco Use Types Packs/Day Years Used Date Smoking Tobacco: Never Assessed Comments Unknown Sex and Gender Information Value Date Recorded Sex Assigned at Not on file Legal Sex Female 11:58 PM COIL MACHINE SUPERVISOR Gender Identity Female 04/03/2018 2:53 PM COIL MACHINE SUPERVISOR Sexual Orientation Not on file documented as of this encounter Plan of Treatment Not on file documented as of this encounter Procedures Procedure Name Priority Date/Time Associated Diagnosis Comments SCAN - PATHOLOGY 02/20/2016 12:0 0 AM COIL MACHINE SUPERVISOR SCAN - LABS 02/20/2016 12:00 AM COIL MACHINE SUPERVISOR SCAN - LABS 02/20/2016 12:00 AM COIL MACHINE SUPERVISOR SCAN - LABS 02/20/2016 12:00 AM COIL MACHINE SUPERVISOR SCAN - LABS 02/20/2016 12:00 AM COIL MACHINE SUPERVISOR documented in this encounter Results * SCAN - LABS (02/20/2016 12:00 AM COIL MACHINE SUPERVISOR) Narrative 02/20/2016 12:00 AM COIL MACHINE SUPERVISOR Ordered by an unspecified provider. Historical Provider Final Res ult * SCAN - PATHOLOGY (02/20/2016 12:00 AM COIL MACHINE SUPERVISOR) Narrative 02/20/2016 12:00 AM COIL MACHINE SUPERVISOR Ordered by an unspecified provider. [facility] Provider Final Res ult * SCAN - LABS (02/20/2016 12:00 AM COIL MACHINE SUPERVISOR) Narrative 02/20/2016 12:00 AM COIL MACHINE SUPERVISOR Ordered by an unspecified provider. [facility] Provider Final Res ult * SCAN - LABS (02/20/2016 12:00 AM COIL MACHINE SUPERVISOR) Narrative 02/20/2016 12:00 AM COIL MACHINE SUPERVISOR Ordered by an unspecified provider. [facility] Provider Final Res ult * SCAN - LABS (02/20/2016 12:00 AM COIL MACHINE SUPERVISOR) Narrative 02/20/2016 12:00 AM COIL MACHINE SUPERVISOR Ordered by an unspecified provider. [facility] Provider Final Res ult documented in this encounter Visit Diagnoses Not on filedocumented in this encounter Care Teams Hooker Off Relationship Specialty Start Date End Date Cheikh Ackerman MD [address] [place] [address] PCP - General 06/11/16 Cheikh Ackerman MD [address] [place] [address] PCP - General 05/04/16 06/10/16 Cheikh Ackerman MD [address] [place] [address] PCP - General 04/25/06 05/03/16 Pepe Nicole MD [address] [place] [address] Referring Physician Nephrology 04/24/20 Francisco Javier Uriostegui MD [address] [facility] [address] [place] [address] Consulting Physician Cardiology 11/22/22 documented as of this encounter
--- OUTSIDE RECORDS SUMMARY | 2024-06-01 17:01 | XMS_ITS | Encounter Summary ---
Author Organization [facility] Address [address] [place] [address] Phone Care Team Providers Care Grain Loader Name Role Phone Cheikh Ackerman MD Primary Care Prov ider Pepe Nicole MD Unavailable [phone] Francisco Javier Uriostegui MD Unavailable Reason for Visit * Reason Onset Date Comments Medication change 05/29/2024 Encounter Details Date Type Department Care Team (Late st Contact Info) Description 05/29/[address] [facility] Nephrology [address] [facility] Advanced Medicine 5th [place] [address] [place] [address] Pepe Nicole MD [facility] [place], [place] [id number] Medication change Social History Tobacco Use Types [...] on file Legal Sex Female 11:58 PM HISTORICAL GUIDE Gender Identity Female 04/03/2018 2:53 PM HISTORICAL GUIDE Sexual Orientation Not on file documented as of this encounter Miscellaneous Notes * Telephone Encounter - Theresa Dale - 06/01/2024 8:22 AM CDT I spoke with pt and relayed MD message. BMP ordered to be done in 2-3 weeks. Pt said she is concerned about her K level. She said in the hospital it was low 2.1 so she was given several infusions to get the level increased. Pt said it was then too high 5.5 and she was advised to eat low K diet which she has been doing. Pt is scheduled for a repeat lab on Tuesday at [facility]. Pt wrote down our fax number and said she will have the results to faxed to us for review. I advised if I do nothear back from her or get a fax I will call her to follow up. Okay with this change, will need to check BMP in 2-3 weeks after increasing losartan John * Addendum Note - Theresa Dale - 06/01/2024 8:21 AM CDTAddended by: THERESA DALE on: 06/01/2024 08:21 AM Modules accepted: Orders * Telephone Encounter - Enedina Valdez - 05/29/2024 10:22 AM CDT Pt called she was inpatient at [facility] from 05/19/24-05/22/24 for low potassium. They did5 or 6 infusions and prescribed Potassium 1 BID for 15 days at [facility] (pt unsure of strength). She is contacting [facility] to have records faxed to our office from hospital stay. Today she had follow up with her PCP. MD upped her losartan from 50 mg daily to 100 mg daily. BP today in office [id number]. She wants to make sure this med change is ok form kidney standpoint. Pt CB# [phone]. Thanks-Tressa documented in this encounter Plan of Treatment Scheduled Orders Name Type Priority Associated Diagnoses Orde r Schedule Basic metabolic panel Lab Routine Essential hypertension CKD (chronic kidney disease) stage 4, GFR 15-29 ml/min (HCC) Expected: 06/15/2024 (Approximate), Expires: 06/01/2025 documented as of this encounter Visit Diagnoses Diagnosis Essential hypertension- Primary Unspecified essential hypertension CKD (chronic kidney disease) stage 4, GFR 15-29 ml/min (HCC) Chronic kidney disease, Stage IV (severe) documented in this encounter Care Teams Grain Loader Relationship Specialty Start Date End Date Cheikh Ackerman MD [address] [place] [address] PCP - General 06/11/16 Pepe Nicole MD [address] [place] [address] Referring Physician Nephrology 04/24/20 Francisco Javier Uriostegui MD [address] [facility] [address] [facility] [address] [place] [address] Consulting Physician Cardiology 11/22/22 documented as of this encounter
--- OUTSIDE RECORDS SUMMARY | 2024-06-01 17:01 | XMS_ITS | Encounter Summary ---
Author Organization [facility] Address [address] [place] [address] Care Team Providers Care Independent Distributor Name Role Phone Linda Euceda Primary Care Provider [phone] Encounter Details Date Type Department Care Team (Late st Contact Info) Description 05/20/2021 XAircraft Message Enc [facility] Medical [facility] Family & Internal Medicine [facility] [address] [place] [phone] [place] [address] [place] [address] 05/26/21 Appointment Social History Tobacco [...] on file Legal Sex Female 5:38 PM RISK CONTROL FIELD REPRESENTATIVE Gender Identity Not on file Sexual Orientation Not on file COVID-19 Exposure Response Date Recorded In the last 10 days, have yo u been in contact with someone who was confirmed or suspected to have Coronavirus/COVID-19? No / Unsure 04/21/2021 3:52 PM RISK CONTROL FIELD REPRESENTATIVE documented as of this encounter Plan of Treatment Not on file documented as of this encounter Visit Diagnoses Not on filedocumented in this encounter Additional Health Concerns Assessment Noted Time PHQ-9 Depression Total Score: 8 04/21/19 22 4:17 PM RISK CONTROL FIELD REPRESENTATIVE documented as of this encounter Care Teams Independent Distributor Relationship Specialty [place] [address] [place] [address] PCP - General PHYSICIAN CLASSIFICATION ANALYST 04/08/21 documented as of this encounter
--- OUTSIDE RECORDS SUMMARY | 2024-06-01 17:01 | XMS_ITS | Encounter Summary ---
Author Organization [facility] Facility Care Team Providers Care Braider Tender Name Role Phone Cheikh Ackerman MD Primary Care Prov ider Cheikh Ackerman MD Primary Care Prov ider Cheikh Ackerman MD Primary Care Prov ider Pepe Nicole MD Unavailable [phone] Francisco Javier Uriostegui MD Unavailable Encounter Details Date Type Department Care Team (Latest Contact Info) Description 02/11/2016 Orders Only [facility] CLINCONV ProviderYohan MD [address] [place] [address] Social History Tobacco Use Types Packs/Day Years Used Date Smoking Tobacco: Never Assessed Comments Unknown Sex and Gender Information Value Date Recorded Sex Assigned at Not on file Legal Sex Female 11:58 PM LEGAL DOCUMENT ASSISTANT Gender Identity Female 04/03/2018 2:53 PM LEGAL DOCUMENT ASSISTANT Sexual Orientation Not on file documented as of this encounter Plan of Treatment Not on file documented as of this encounter Procedures Procedure Name Priority Date/Time Associated Diagnosis Comments PROCEDURE - RESULT 02/11/2016 12 :00 AM LEGAL DOCUMENT ASSISTANT documented in this encounter Results * PROCEDURE - RESULT (02/11/2016 12:00 AM LEGAL DOCUMENT ASSISTANT) Narrative 02/11/2016 12:00 AM LEGAL DOCUMENT ASSISTANT Ordered by an unspecified provider. us Historical Provider Final Res ult documented in this encounter Visit Diagnoses Not on filedocumented in this encounter Care Teams Braider Tender Relationship Specialty Start Date End Date Cheikh Ackerman MD [address] [place] [address] PCP - General 06/11/16 Cheikh Ackerman MD [address] [place] [address] PCP - General 05/04/16 06/10/16 Cheikh Ackerman MD [address] [place] [address] PCP - General 04/25/06 05/03/16 Pepe Nicole MD [address] [place] [address] Referring Physician Nephrology 04/24/20 Francisco Javier Uriostegui MD [address] [facility] [address] [place] [address] Consulting Physician Cardiology 11/22/22 documented as of this encounter
--- OUTSIDE RECORDS SUMMARY | 2024-06-01 17:01 | XMS_ITS | Encounter Summary ---
Author Organization [facility] Address [facility] [place] [address] Care Team Providers Care Obstetrics Teacher Name Role Phone Linda Euceda Primary Care Provider [phone] Encounter Details Date Type Department Care Team (Late st Contact Info) Description 02/05/2022 [email or web address] Message Enc [facility] Family & Internal Medicine [facility] [id number] [place] [phone] [facility] Provider Pap smear Social History Tobacco Use [...] on file Legal Sex Female 5:38 PM GROCERY CLERK SELLING Gender Identity Not on file Sexual Orientation Not on file documented as of this encounter Plan of Treatment Not on file documented as of this encounter Visit Diagnoses Not on filedocumented in this encounter Additional Health Concerns Assessment Noted Time PHQ-9 Depression Total Score: 8 04/21/19 22 4:17 PM GROCERY CLERK SELLING documented as of this encounter Care Teams Obstetrics Teacher Relationship Specialty [place] [address] [place] [address] PCP - General PHYSICIAN MEDICAL SAFETY DIRECTOR 04/08/21 documented as of this encounter
--- OUTSIDE RECORDS SUMMARY | 2024-06-01 17:01 | XMS_ITS | Clinical Summary ---
Author Organization [facility] Address [address] [place] [address] Care Team Providers Care Supervisor Press Room Name Role Phone David Euceda Primary Care Provider [phone] Allergies Active Allergy Reactions Criticality Noted Date [...] on file Legal Sex Female 5:38 PM CHARGING CAR OPERATOR Gender Identity Not on file Sexual Orientation Not on file Last Filed Vital Signs Vital Sign Reading Time Taken Comments Blood Pressure 152/90 04/21/2021 4:02 PM CHARGING CAR OPERATOR Pulse 78 04/21/2021 4:02 PM CHARGING CAR OPERATOR Temperature 37.1 C (98.7 F) 04/21/2021 4:02 PM CHARGING CAR OPERATOR Respiratory Rate 18 04/21/2021 4:02 PM CHARGING CAR OPERATOR Oxygen Saturation 98% 04/21/2021 4:02 PM CHARGING CAR OPERATOR Inhaled Oxygen Concentration - - Weight 91.2 kg (201 lb) 04/21/2021 4:02 PM CHARGING CAR OPERATOR Height 165.1 cm (5' 5 ) 04/21/2021 4:02 PM CHARGING CAR OPERATOR Body Mass Index 33.45 04/21/2021 4:02 PM CHARGING CAR OPERATOR Plan of Treatment Health Maintenance Due Date [...] PAPILLOMAVIRUS, HIGH-RISK TYPES Routine 04/21/2021 12:00 PM CHARGING CAR OPERATOR CYTOPATH CERV/VAG THIN LAYER Routine 04/21/2021 8:03 AM CHARGING CAR OPERATOR from Last 3 Months or Most Recently Relevant to Health Maintenance Results * HUMAN PAPILLOMAVIRUS, HIGH-RISK TYPES (04/21/2021 12:00 PM CHARGING CAR OPERATOR) SPEC DESCRIPTION CERVICAL/END OCERVICAL 04/23/2021 9:25 [address] [facility] HPV DNA HIGH RISK NEGATIVE NEGATIVE 04/24/2021 11:54 AM CHARGING CAR [address] [facility] Comment:SEE CYTOLOGY REPORT 04/21/2021 12:0 0 PM CHARGING CAR OPERATOR David GÓMEZ PATHOLOGY/CYTOLOGY ORDERABLE S Final Result [facility] [address] [place] [address], * Cytopath Cerv/Vag Thin Layer (04/21/2021 8:03 AM CHARGING CAR OPERATOR) THIN PREP PAP [facility] [address] [place] [address] Department of Pathology Pathology Report CERVICAL/VAGINAL PAP SMEAR REPORT Name: ROSANNE SIDHU Age: 2 1965 (Age: 55) Location: [facility] Sex: F Collected Date: 04/21/2021 [facility] #: [id number] Date Received: 04/23/2021 Date Reported: 04/28/2021 Provider: [...] is not effective in detecting cervical adenocarcinoma. [facility] 04/21/2021 8:03 AM CHARGING CAR OPERATOR 04/23/2021 8:03 AM CHARGING CAR OPERATOR Comment:CERVICAL/ENDOCERVICA L us David GÓMEZ PATHOLOGY/CYTOLOGY ORDERABLE S Final Result [facility] [address] [place] [address], from Last 3 Months or Most Recently Relevant to Health Maintenance Insurance [facility] Care Teams Supervisor Press Room Relationship Specialty [place] [address] [place] [address] PCP - General PHYSICIAN INFANT BABYSITTER 04/08/21
--- OUTSIDE RECORDS SUMMARY | 2024-06-01 17:01 | XMS_ITS | Clinical Summary ---
Author Organization [facility] [employer] Address [address] [place] [address] Care Team Providers Care Gear Nicker Name Role Phone Vanessa Cardoso MD Primary Care Provider [phone] Source Comments [facility] [employer],non-owned Affiliates and Associated Physician Practices is amultiple site organization consisting of ambulatory clinics and hospital sitesin [place], [place], [place] and [place]. This disclosure is being madepursuant to the Care Everywhere program and may not contain all information available regarding this patient. Last updated 17.[facility] [employer] Social History Tobacco Use Types Packs/Day Years [...] age to complete this topic Care Teams Gear Nicker Relationship Specialty Start Date End Date Vanessa Cardoso MD [address] [place] [phone] PCP - General 01/09/21
--- OUTSIDE RECORDS SUMMARY | 2024-06-01 17:01 | XMS_ITS | Encounter Summary ---
Author Organization [facility] Care Team Providers Care Employment Coordinator Name Role Phone Cheikh Ackerman MD Primary Care Prov ider Cheikh Ackerman MD Primary Care Prov ider Cheikh Ackerman MD Primary Care Prov ider Pepe Nicole MD Unavailable [phone] Francisco Javier Uriostegui MD Unavailable Encounter Details Date Type Department Care Team (Latest Contact Info) Description 03/12/2016 Orders Only [facility]INCON[facility] ProviderYohan MD [address] [place], [place] [id number] Social History Tobacco Use Types Packs/Day Years Used Date Smoking Tobacco: Never Assessed Comments Unknown Sex and Gender Information Value Date Recorded Sex Assigned at Not on file Legal Sex Female 11:58 PM PLODDING OPERATOR Gender Identity Female 04/03/2018 2:53 PM PLODDING OPERATOR Sexual Orientation Not on file documented as of this encounter Plan of Treatment Not on file documented as of this encounter Procedures Procedure Name Priority Date/Time Associated Diagnosis Comments SCAN - LABS 04/06/2016 12:00 AM PLODDING OPERATOR SCAN - PATHOLOGY 03/12/2016 12:0 0 AM PLODDING OPERATOR documented in this encounter Results * SCAN - LABS (04/06/2016 12:00 AM PLODDING OPERATOR) Narrative 04/06/2016 12:00 AM PLODDING OPERATOR Ordered by an unspecified provider. Historical Provider Final Res ult * SCAN - PATHOLOGY (03/12/2016 12:00 AM PLODDING OPERATOR) Narrative 03/12/2016 12:00 AM PLODDING OPERATOR Ordered by an unspecified provider. Historical Provider Final Res ult documented in this encounter Visit Diagnoses Not on filedocumented in this encounter Care Teams Employment Coordinator Relationship Specialty Start Date End Date Cheikh Ackerman MD [address] [place] [address] PCP - General 06/11/16 Cheikh Ackerman MD [address] [place] [address] PCP - General 05/04/16 06/10/16 Cheikh Ackerman MD [address] [place] [address] PCP - General 04/25/06 05/03/16 Pepe Nicole MD [address] [place] [address] Referring Physician Nephrology 04/24/20 Francisco Javier Uriostegui MD [address] [place] [address] Consulting Physician Cardiology 11/22/22 documented as of this encounter
--- OUTSIDE RECORDS SUMMARY | 2024-06-01 17:01 | XMS_ITS | Clinical Summary ---
Author Organization [facility] Address [address] [place] [address] Care Team Providers Care Dietary Director Name Role Phone Cheikh Ackerman MD Primary Care Prov ider Pepe Nicole MD Unavailable [phone] Francisco Javier Uriostegui MD Unavailable Allergies [...] insulin 10/25/2023 ILD (interstitial lung disease) 10/05/2023 check pilot associated with adverse incidents 08/05/2023 BOOP (bronchiolitis [...] on prednisone - advised to contact her fire fighters dispatcher to discuss her blood pressure and edema [...] Type Department Care Team Description 05/29/[address] [facility] [address] [place] [address] 5th [place] [address] [place] [phone] Pepe Nicole MD Medication change 05/18/2024 1:40 PM FIELD SERVICE SUPERVISOR - 05/18/2024 11:59 PM FIELD SERVICE SUPERVISOR Hospital Encounter [address] [address] Bilateral knee swelling; Chronic pain of both knees Discharge Disposition: Discharge to home or self care 05/18/2024 1:00 PM FIELD SERVICE SUPERVISOR Office Visit [facility] Sports Medicine and Primary Care at [address] [place] [phone] Ash Godwin DO Bilateral knee swelling (Primary Dx); Chronic pain of both knees 05/14/2024 9:00 AM FIELD SERVICE SUPERVISOR Office Visit [facility] Sports Medicine and Primary Care at [address] [place] [phone] Ash Godwin DO Primary osteoarthritis of both knees (Primary Dx) 05/03/[address] [facility] [address] [place] [address] [address] [place] [address] Crissy Mcadams NP 05/01/2024 1:30 PM FIELD SERVICE SUPERVISOR Office Visit [facility] [address] [place] [address] [address] [place] [address] Crissy Mcadams NP Polymyalgia rheumatica syndrome (Primary Dx); retirement (current) use of systemic steroids 04/20/[address] [facility] [address] [facility] 5th [place] [address] [place] [phone] Aspen Zapata 03/20/2024 1:00 PM FIELD SERVICE SUPERVISOR Office Visit [facility] [address] [facility] 5th [place] [address] [place] [phone] CKD (chronic kidney disease) stage 4, GFR 15-29 ml/min (HCC) (Primary Dx); Essential hypertension; Proteinuria, unspecified type; Anemia in stage 4 chronic kidney disease (HCC); Renal osteodystrophy 03/12/2024 3:31 PM FIELD SERVICE SUPERVISOR - 03/12/2024 11:59 PM FIELD SERVICE SUPERVISOR Hospital Encounter [address] [address] CKD (chronic kidney disease) stage 4, GFR 15-29 ml/min (HCC); Vitamin D deficiency; Proteinuria, unspecified type Discharge Disposition: Discharge to home or self care 03/12/2024 12:30 PM FIELD SERVICE SUPERVISOR Ancillary Procedure [facility] Imaging at [address] [address] exterminator (current) use of systemic steroids 03/12/2024 12:15 PM FIELD SERVICE SUPERVISOR Ancillary Procedure [facility] Imaging at [address] [address] exterminator (current) use of systemic steroids 03/12/2024 11:24 AM FIELD SERVICE SUPERVISOR - 03/12/2024 11:59 PM FIELD SERVICE SUPERVISOR Hospital Encounter [address] [address] retirement (current) use of systemic steroids Discharge Disposition: Discharge to home or self care 03/12/2024 11:15 AM FIELD SERVICE SUPERVISOR Lab [facility] Outpatient Lab at [address] [phone] Mixed hyperlipidemia (Primary Dx); Type 2 diabetes [...] on file Legal Sex Female 11:58 PM FIELD SERVICE SUPERVISOR Gender Identity Female 04/03/2018 2:53 PM FIELD SERVICE SUPERVISOR Sexual Orientation Not on file Obstetrics History Last Filed Vital Signs Vital Sign Reading Time Taken Comments Blood Pressure 117/70 05/18/2024 1:18 PM FIELD SERVICE SUPERVISOR Pulse 93 05/18/2024 1:18 PM FIELD SERVICE SUPERVISOR Temperature 36.6 C (97.8 F) 05/01/2024 1:26 PM FIELD SERVICE SUPERVISOR Respiratory Rate 20 10/05/2023 10:52 AM CDT Oxygen Saturation 97% 05/01/2024 1:26 PM FIELD SERVICE SUPERVISOR Inhaled Oxygen Concentration - - Weight 85.7 kg (189 lb) 05/18/2024 1:18 PM FIELD SERVICE SUPERVISOR Height 165.1 cm (5' 5 ) 05/18/2024 1:18 PM FIELD SERVICE SUPERVISOR Body Mass Index 31.45 05/18/2024 1:18 PM FIELD SERVICE SUPERVISOR Plan of Treatment Health Maintenance Due Date [...] ANALYSIS, BODY FLUID Routine 05/18/2024 1:40 PM FIELD SERVICE SUPERVISOR Bilateral knee swelling Chronic pain of both knees LA ARTHROCENTESIS ASPIR&/INJ MAJOR JT/BURSA W/US Routine 05/18/2024 1:00 PM FIELD SERVICE SUPERVISOR Bilateral knee swelling Chronic pain of both knees XR KNEE RIGHT 3 VIEWS Schedule Routine, Read Routine (OP Routine) 03/12/2024 11:34 AM FIELD SERVICE SUPERVISOR retirement (current) use of systemic steroids XR KNEE LEFT 3 VIEWS Schedule Routine, Read Routine (OP Routine) 03/12/2024 11:34 AM FIELD SERVICE SUPERVISOR retirement (current) use of systemic steroids EGFR Routine 03/12/2024 11:25 AM FIELD SERVICE SUPERVISOR CKD (chronic kidney disease) stage 4, GFR 15-29 ml/min ([facility]) Vitamin D deficiency Proteinuria, unspecified type RENAL FUNCTION PANEL Routine 03/12/2024 11:25 AM FIELD SERVICE SUPERVISOR CKD (chronic kidney disease) stage 4, GFR 15-29 ml/min (HCC) Vitamin D deficiency Proteinuria, unspecified type VITAMIN D 25 HYDROXY Routine 03/12/2024 11:25 AM FIELD SERVICE SUPERVISOR CKD (chronic kidney disease) stage 4, GFR 15-29 ml/min (HCC) Vitamin D deficiency Proteinuria, unspecified type PROTEIN / CREATININE RATIO, URINE, RANDOM Routine 03/12/2024 11:25 AM FIELD SERVICE SUPERVISOR CKD (chronic kidney disease) stage 4, GFR 15-29 ml/min (HCC) Vitamin D deficiency Proteinuria, unspecified type CRP (ACUTE PHASE) Routine 03/12/2024 11: 25 AM FIELD SERVICE SUPERVISOR retirement (current) use of systemic steroids ERYTHROCYTE SEDIMENTATION RATE Routine 03/12/2024 11:25 AM FIELD SERVICE SUPERVISOR retirement (current) use of systemic steroids IRON PROFILE W/ IBC Routine 03/12/2024 1 1:25 AM FIELD SERVICE SUPERVISOR exterminator (current) use of systemic steroids VITAMIN B12 Routine 03/12/2024 11:25 AM FIELD SERVICE SUPERVISOR exterminator (current) use of systemic steroids POCT HEMOGLOBIN A1C Routine 10/25/2023 9 :17 AM CDT Type 2 diabetes mellitus without complication, with long-term current use of insulin ([facility]) POCT LIPID PANEL Routine 08/10/2023 2:56 PM CDT Lipid screening from Last 3 Months or Most Recently Relevant to Health Maintenance Results * Crystal Analysis, Body Fluid (05/18/2024 1:40 PM FIELD SERVICE SUPERVISOR) Specimen type, fld Synovial Crystals Not Present ALICE Fluid 05/18/2024 1:40 PM FIELD SERVICE SUPERVISOR 05/18/2024 10:31 PM FIELD SERVICE SUPERVISOR Narrative ALICE - 05/21/2024 7:50 AM CDT Specify:->Right knee us Ash Godwin DO LAB BODY FLUIDS AND ST OOLS ORDERABLES Final Result ALICE WATT [address] [address] Department [place] [address] * LA ARTHROCENTESIS ASPIR&/INJ MAJOR JT/BURSA W/US (05/18/2024 1:00 PM FIELD SERVICE SUPERVISOR) Narrative Ash Godwin DO - 05/18/2024 1:00 PM FIELD SERVICE SUPERVISOR Ash Godwin DO 05/18/2024 1:44 PM Large Joint Injection w/ Ultrasound Guidance: bilateral knee Performed by: Ash Godiwn DO Authorized by: Ash Godwin DO Large [...] %); 80 mg methylPREDNISolone acetate 80 mg/mL Ash Godwin DO IN CLINIC/BEDSIDE TARAN REYES Final Result * X-ray knee right 3 views (03/12/2024 11:34 AM FIELD SERVICE SUPERVISOR) Anatomical Region Laterality Modality Lower Extremities, Knee Right Digital Radiography 03/12/2024 7:48 PM FIELD SERVICE SUPERVISOR Narrative 03/12/2024 7:49 PM FIELD SERVICE SUPERVISOR EXAM DESCRIPTION: XR KNEE LEFT 3 VIEWS; [...] by Ash Rubio M.D. T: Report ID: [id number] Reading Location: [id number] Procedure Note Ash Rubio MD - 03/12/2024 [...] by Ash Rubio M.D. T: Report ID: [id number] Reading Location: [id number] Crissy Mcadams NP IMG XR PROCEDURES Final Result * X-ray knee left 3 views (03/12/2024 11:34 AM FIELD SERVICE SUPERVISOR) Anatomical Region Laterality Modality Lower Extremities, Knee Left Digital Radiography 03/12/2024 7:48 PM FIELD SERVICE SUPERVISOR Narrative 03/12/2024 7:49 PM FIELD SERVICE SUPERVISOR EXAM DESCRIPTION: XR KNEE LEFT 3 VIEWS; [...] by Ash Rubio M.D. T: Report ID: [id number] Reading Location: [id number] Procedure Note Ash Rubio MD - 03/12/2024 [...] by Ash Rubio M.D. T: Report ID: [id number] Reading Location: [id number] Crissy Mcadams EDITOR CONTINUITY AND SCRIPT IMG XR PROCEDURES Final Result * (ABNORMAL) eGFR (03/12/2024 11:25 AM FIELD SERVICE SUPERVISOR) eGFR 35(L) >=60 mL/min/1. 73 m2 Comment: [...] reviewed 2021. Blood 03/12/2024 11:2 5 AM FIELD SERVICE SUPERVISOR 03/12/2024 8:18 PM FIELD SERVICE SUPERVISOR Brittnee Blackwell MD LAB BLOOD ORDERABLES Fi nal Result Performing Organization Address City/[facility] Co de Phone Number ALICE WATT [address] [address] [email or web address] [address] * (ABNORMAL) Iron profile w/ IBC (03/12/2024 11:25 AM FIELD SERVICE SUPERVISOR) [facility] Iron 37 35 - 145 mcg/dl TIBC 200(L) 250 - 400 mcg/dL [facility] Transferrin saturation 19(L) 20 - 50 % [facility] Blood 03/12/2024 11:2 5 AM FIELD SERVICE SUPERVISOR 03/12/2024 8:18 PM FIELD SERVICE SUPERVISOR Crissy Mcadams NP LAB BLOOD ORDERABLES Fi nal Result Performing Organization Address City/[facility]/[place] [address] [address] [place] [address] * (ABNORMAL) Protein / creatinine ratio, urine, random (03/12/2024 11:25 AM FIELD SERVICE SUPERVISOR) [facility] Protein, ur, quant 196.5 mg/dL Comment: Interpretive Data No reference range established. Current interpretive data was last revised 2018. Creatinine Ur 164.2 mg/dL ALICE Comment: Interpretive Data No reference range established. Current interpretive data was last revised 2018. Protein/creatinin e ratio 1,196.7(H ) 0.0 - 180.0 mg/g CR ALICE Urine 03/12/2024 11:2 5 AM FIELD SERVICE SUPERVISOR 03/12/2024 8:38 PM FIELD SERVICE SUPERVISOR Brittnee Blackwell MD LAB URINE ORDERABLES Fi nal Result Performing Organization Address [facility] Co de Phone Number [facility] [address] [address] [place] [address] * (ABNORMAL) Vitamin D 25 hydroxy (03/12/2024 11:25 AM FIELD SERVICE SUPERVISOR) Vitamin D 25-OH 28(L) 30 - 80 ng/mL Blood 03/12/2024 11:2 5 AM FIELD SERVICE SUPERVISOR 03/12/2024 8:18 PM FIELD SERVICE SUPERVISOR Brittnee Blackwell MD LAB BLOOD ORDERABLES Fi nal Result Performing Organization Address [facility] Co de Phone Number [facility] [address] [address] [place] [address] * Erythrocyte sedimentation rate (03/12/2024 11:25 AM FIELD SERVICE SUPERVISOR) Erythrocyte sedimentation rate 16 1 - 30 mm/hr Blood 03/12/2024 11:2 5 AM FIELD SERVICE SUPERVISOR 03/12/2024 8:18 PM FIELD SERVICE SUPERVISOR Crissy Mcadams NP LAB BLOOD ORDERABLES Fi nal Result Performing Organization Address [facility] Co de Phone Number [facility] [address] [address] [place] [address] * (ABNORMAL) CRP (acute phase) (03/12/2024 11:25 AM FIELD SERVICE SUPERVISOR) CRP 18.4(H) <=10.0 mg/L Blood 03/12/2024 11:2 5 AM FIELD SERVICE SUPERVISOR 03/12/2024 8:18 PM FIELD SERVICE SUPERVISOR us Crissy Mcadams EDITOR CONTINUITY AND SCRIPT LAB BLOOD ORDERABLES Fi nal Result Performing Organization Address [facility] de Phone Number ALICE WATT [address] [address] [facility] [place] [place] [address] * Vitamin B12 (03/12/2024 11:25 AM FIELD SERVICE SUPERVISOR) Pathologist [facility] Vitamin B12 545 230 - 1,250 pg/mL Blood 03/12/2024 11:2 5 AM FIELD SERVICE SUPERVISOR 03/12/2024 8:18 PM FIELD SERVICE SUPERVISOR us Crissy Mcadams EDITOR CONTINUITY AND SCRIPT LAB BLOOD ORDERABLES Fi nal Result Performing Organization Address [facility] Phone Number ALICE [address] [address] [employer] [place] [address] * (ABNORMAL) Renal function panel (03/12/2024 11:25 AM FIELD SERVICE SUPERVISOR) Pathologist [facility] Sodium 144 135 - 145 mmol/L Potassium, pl 4.7 3.3 - 4.9 mmol/L [facility] Chloride 112(H) 97 - 110 mmol/L [facility] CO2 17(L) 22 - 32 mmol/L [facility] Anion gap 15 2 - 15 mmol/L [facility] BUN 25 6 - 25 mg/dL [facility] Creatinine 1.69(H) 0.60 - 1.10 mg/dL [facility] Glucose 108 70 - 199 mg/dL [facility] Comment: Interpretive Data Fasting glucose >/= 126 [...] CERNER [facility] Blood 03/12/2024 11:2 5 AM FIELD SERVICE SUPERVISOR 03/12/2024 8:18 PM FIELD SERVICE SUPERVISOR Brittnee Blackwell MD LAB BLOOD ORDERABLES Fi nal Result [facility] [address] [address] Department [place] [address] * POCT hemoglobin A1c (10/25/2023 9:17 AM [...] Insurance ANTHEM ACCESS CHOICE ANTHEM ACCESS CHOICE [address] [place] [id number] Care Teams Dietary Director Relationship Specialty Start Date End Date Cheikh Ackerman MD [address] [place] [address] PCP - General 06/11/16 Pepe Nicole MD [address] [place] [address] Referring Physician Nephrology 04/24/20 Francisco Javier Uriostegui MD [address] [address] Consulting Physician Cardiology 11/22/22
--- OUTSIDE RECORDS SUMMARY | 2024-06-01 17:01 | XMS_ITS | Encounter Summary ---
Author Organization [facility] Address [address] [place] [address] Phone Care Team Providers Care Supervising Broker Name Role Phone Cheikh Ackerman MD Primary Care Prov ider Pepe Nicole MD Unavailable [phone] Francisco Javier Uriostegui MD Unavailable Encounter [...] on file Legal Sex Female 11:58 PM TATTOO TECHNICIAN Gender Identity Female 04/03/2018 2:53 PM TATTOO TECHNICIAN Sexual Orientation Not on file documented [...] on filedocumented in this encounter Care Teams Supervising Broker Relationship Specialty Start Date End Date Cheikh Ackerman MD [address] [place] [address] PCP - General 06/11/16 Pepe Nicole MD [address] [place] [address] Referring Physician Nephrology 04/24/20 Francisco Javier Uriostegui MD [address] [facility] [address] [place] [address] Consulting Physician Cardiology 11/22/22 documented as of this encounter
--- OUTSIDE RECORDS SUMMARY | 2024-06-01 17:01 | XMS_ITS | Encounter Summary ---
Author Organization [facility] Facility Care Team Providers Care Treater Name Role Phone Cheikh Ackerman MD Primary Care Prov ider Cheikh Ackerman MD Primary Care Prov ider Cheikh Ackerman MD Primary Care Prov ider Pepe Nicole MD Unavailable [phone] Francisco Javier Uriostegui MD Unavailable Encounter Details Date Type Department Care Team (Latest Contact Info) Description 02/26/2016 Orders Only [facility] ProviderYohan MD [address] [place] [address] Social History Tobacco Use Types Packs/Day Years Used Date Smoking Tobacco: Never Assessed Comments Unknown Sex and Gender Information Value Date Recorded Sex Assigned at Not on file Legal Sex Female 11:58 PM MEDICAL OPERATIONS SUPERVISOR Gender Identity Female 04/03/2018 2:53 PM MEDICAL OPERATIONS SUPERVISOR Sexual Orientation Not on file documented as of this encounter Plan of Treatment Not on file documented as of this encounter Procedures Procedure Name Priority Date/Time Associated Diagnosis Comments PROCEDURE - RESULT 02/26/2016 12 :00 AM MEDICAL OPERATIONS SUPERVISOR documented in this encounter Results * PROCEDURE - RESULT (02/26/2016 12:00 AM MEDICAL OPERATIONS SUPERVISOR) Narrative 02/26/2016 12:00 AM MEDICAL OPERATIONS SUPERVISOR Ordered by an unspecified provider. us Historical Provider Final Res ult documented in this encounter Visit Diagnoses Not on filedocumented in this encounter Care Teams Treater Relationship Specialty Start Date End Date Cheikh Ackerman MD [address] [place] [address] PCP - General 06/11/16 Cheikh Ackerman MD [address] [place] [address] PCP - General 05/04/16 06/10/16 Cheikh Ackerman MD [address] [place] [address] PCP - General 04/25/06 05/03/16 Pepe Nicole MD [address] [place] [address] Referring Physician Nephrology 04/24/20 Francisco Javier Uriostegui MD [address] [facility] [address] [place] [address] Consulting Physician Cardiology 11/22/22 documented as of this encounter
--- OUTSIDE RECORDS SUMMARY | 2024-06-01 17:01 | XMS_ITS | Continuity of Care Document ---
Author Organization [facility] Address [address] [place] [address] utive [facility] [address] [place] [address] Phone Care Team Providers Care Plane Tableman Name Role Phone Brooke Amador Unavailable Unavailable Procedures Procedure Date Eye Exam, New Patient Advance Directives Directive Yes / No Effective Date File Name No Information Encounters Encounter Description Practice Location Reason(s) For Visit Diagnoses Date Provider Providers Copied on Encounter [facility], [address] [place] [address] [address], [place], [place], [id number], [place] tel:[phone] [facility] No Information 8-200 8 Marjorie Cox. [address] , [address], [place], [address], [place]. tel:[phone] Family History Family Member Type Diagnosis Age [...]
--- OUTSIDE RECORDS SUMMARY | 2024-06-01 17:01 | XMS_ITS | Encounter Summary ---
Author Organization [facility] Address [address] [place] [address] Phone Care Team Providers Care Golf Caddie Name Role Phone Cheikh Ackerman MD Primary Care Prov ider Pepe Nicole MD Unavailable [phone] Francisco Javier Uriostegui MD Unavailable Encounter [...] on file Legal Sex Female 11:58 PM PEARL STRINGER Gender Identity Female 04/03/2018 2:53 PM PEARL STRINGER Sexual Orientation Not on file documented as [...] on filedocumented in this encounter Care Teams Golf Caddie Relationship Specialty Start Date End Date Cheikh Ackerman MD [address] [place] [address] PCP - General 06/11/16 Pepe Nicole MD [address] [place] [address] Referring Physician Nephrology 04/24/20 Francisco Javier Uriostegui MD [address] [place] [address] Consulting Physician Cardiology 11/22/22 documented as of this encounter
--- OUTSIDE RECORDS SUMMARY | 2024-06-01 17:01 | XMS_ITS | Encounter Summary ---
Author Organization [facility] Address [address] [address] Care Team Providers Care Associate Director Finance Name Role Phone Cheikh Ackerman MD Primary Care Prov ider Cheikh Ackerman MD Primary Care Prov ider Cheikh Ackerman MD Primary Care Prov ider Pepe Nicole MD Unavailable [phone] Francisco Javier Uriostegui MD Unavailable Encounter Details Date Type Department Care Team (Late st Contact Info) Description 10/08/2015 Orders Only [facility] Provider, MD Yohan [address] [place] [address] Social History Tobacco Use Types Packs/Day Years Used Date Smoking Tobacco: Never Assessed Comments Unknown Sex and Gender Information Value Date Recorded Sex Assigned at Not on file Legal Sex Female 11:58 PM HVAC SHEET METAL INSTALLER Gender Identity Female 04/03/2018 2:53 PM HVAC SHEET METAL INSTALLER Sexual Orientation Not on file documented as [...] on filedocumented in this encounter Care Teams Associate Director Finance Relationship Specialty Start Date End Date Cheikh Ackerman MD [address] [place] [address] PCP - General 06/11/16 Cheikh Ackerman MD [address] [place] [address] PCP - General 05/04/16 06/10/16 Cheikh Ackerman MD [address] [place] [address] PCP - General 04/25/06 05/03/16 [place] [address] [place] [address] [address] [place] [address] Referring Physician Nephrology 04/24/20 Francisco Javier Uriostegui MD [address] [facility] [address] [facility] [address] [place] [address] Consulting Physician Cardiology 11/22/22 documented as of this encounter
--- OUTSIDE RECORDS SUMMARY | 2024-06-01 17:01 | XMS_ITS | Encounter Summary ---
Author Organization [facility] Facility Care Team Providers Care Gis Professor Name Role Phone hCeikh Ackerman MD Primary Care Prov ider Cheikh Ackerman MD Primary Care Prov ider Cheikh Ackerman MD Primary Care Prov ider Pepe Nicole MD Unavailable Francisco Javier Uriostegui MD Unavailable Encounter Details Date Type Department Care Team (Latest Contact Info) Description 03/04/2016 Orders Only [facility]IN[facility] ProviderYohan MD [address] [place] [address] Social History Tobacco Use Types Packs/Day Years Used Date Smoking Tobacco: Never Assessed Comments Unknown Sex and Gender Information Value Date Recorded Sex Assigned at Not on file Legal Sex Female 11:58 PM ARCHITECT MARINE Gender Identity Female 04/03/2018 2:53 PM ARCHITECT MARINE Sexual Orientation Not on file documented as of this encounter Plan of Treatment Not on file documented as of this encounter Procedures Procedure Name Priority Date/Time Associated Diagnosis Comments SCAN - LABS 03/04/2016 12:00 AM ARCHITECT MARINE documented in this encounter Results * SCAN - LABS (03/04/2016 12:00 AM ARCHITECT MARINE) Narrative 03/04/2016 12:00 AM ARCHITECT MARINE Ordered by an unspecified provider. us Historical Provider Final Res ult documented in this encounter Visit Diagnoses Not on filedocumented in this encounter Care Teams Gis Professor Relationship Specialty Start Date End Date Cheikh Ackerman MD [address] [place] [address] PCP - General 06/11/16 Cheikh Ackerman MD [address] [place] [address] PCP - General 05/04/16 06/10/16 Cheikh Ackerman MD [address] [place] [address] PCP - General 04/25/06 05/03/16 Pepe Nicole MD [address] [place] [address] Referring Physician Nephrology 04/24/20 Francisco Javier Uriostegui MD [address] [facility] [address] [place] [address] Consulting Physician Cardiology 11/22/22 documented as of this encounter
[2024-06-01 17:34] LABS: Anion Gap 8 mmol/L (4-12); Blood Urea Nitrogen 30 mg/dL (7-17); Calcium 8.4 mg/dL (8.4-10.2); Carbon Dioxide 21 mmol/L (22-30); Chloride 112 mmol/L (98-107); Estimated Glomerular Filt Rate 27; Glucose 64 mg/dL (65-110); Potassium 4.5 mmol/L (3.4-5.0); Sodium 141 mmol/L (137-145)
== END 2024-06-01 16:56 | disposition home or self-care (01) ==
LOC: ANHLAB 16:59
PROVIDERS: PCP Family Medicine Adolescent Medicine; Visit Provider Family Medicine
DX: E87.6 Hypokalemia (principal); N18.30 Chronic kidney disease, stage 3 unspecified
CPT/HCPCS: 36415; 80048

== ENCOUNTER 2024-06-27 07:00 | Outpatient (RCR) | payer BC, SELFPAY ==
[2024-04-08 00:04] VITALS: BP 144/70; PULSE 88; RESP 16; O2SAT 95
== END 2024-07-12 14:28 | disposition home or self-care (01) ==
LOC: ANHCPREHAB 07:00
PROVIDERS: PCP Family Medicine Adolescent Medicine
DX: J84.9 Interstitial pulmonary disease, unspecified (principal)
CPT/HCPCS: G0239

== ENCOUNTER 2024-07-19 08:26 | Outpatient (CLI) | payer BC, SELFPAY ==
--- OUTSIDE RECORDS SUMMARY | 2024-07-19 08:29 | XMS_ITS | Encounter Summary ---
Author Organization [facility] Facility Care Team Providers Care Occupational Medicine Physician Name Role Phone Cheikh Ackerman MD Primary Care Prov ider Cheikh Ackerman MD Primary Care Prov ider Cheikh Ackerman MD Primary Care Prov ider Pepe Nicole MD Unavailable [phone] Francisco Javier Uriostegui MD Unavailable Encounter Details Date Type Department Care Team (Latest Contact Info) Description 02/18/2016 Orders Only [facility]IN[facility] ProviderYohan MD [address] [place] [address] Social History Tobacco Use Types Packs/Day Years Used Date Smoking Tobacco: Never Assessed Comments Unknown Sex and Gender Information Value Date Recorded Sex Assigned at Not on file Legal Sex Female 11:58 PM ESCAPEMENT MAKER Gender Identity Female 04/03/2018 2:53 PM ESCAPEMENT MAKER Sexual Orientation Not on file documented as of this encounter Plan of Treatment Not on file documented as of this encounter Procedures Procedure Name Priority Date/Time Associated Diagnosis Comments SCAN - PATHOLOGY 02/20/2016 12:0 0 AM ESCAPEMENT MAKER SCAN - LABS 02/20/2016 12:00 AM ESCAPEMENT MAKER SCAN - LABS 02/20/2016 12:00 AM ESCAPEMENT MAKER SCAN - LABS 02/20/2016 12:00 AM ESCAPEMENT MAKER SCAN - LABS 02/20/2016 12:00 AM ESCAPEMENT MAKER documented in this encounter Results * SCAN - LABS (02/20/2016 12:00 AM ESCAPEMENT MAKER) Narrative 02/20/2016 12:00 AM ESCAPEMENT MAKER Ordered by an unspecified provider. Historical Provider Final Res ult * SCAN - PATHOLOGY (02/20/2016 12:00 AM ESCAPEMENT MAKER) Narrative 02/20/2016 12:00 AM ESCAPEMENT MAKER Ordered by an unspecified provider. [facility] Provider Final Res ult * SCAN - LABS (02/20/2016 12:00 AM ESCAPEMENT MAKER) Narrative 02/20/2016 12:00 AM ESCAPEMENT MAKER Ordered by an unspecified provider. [facility] Provider Final Res ult * SCAN - LABS (02/20/2016 12:00 AM ESCAPEMENT MAKER) Narrative 02/20/2016 12:00 AM ESCAPEMENT MAKER Ordered by an unspecified provider. [facility] Provider Final Res ult * SCAN - LABS (02/20/2016 12:00 AM ESCAPEMENT MAKER) Narrative 02/20/2016 12:00 AM ESCAPEMENT MAKER Ordered by an unspecified provider. [facility] Provider Final Res ult documented in this encounter Visit Diagnoses Not on filedocumented in this encounter Care Teams Occupational Medicine Physician Relationship Specialty Start Date End Date Cheikh Ackerman MD [address] [place] [address] PCP - General 06/11/16 Cheikh Ackerman MD [address] [place] [address] PCP - General 05/04/16 06/10/16 Cheikh Ackerman MD [address] [place] [address] PCP - General 04/25/06 05/03/16 Pepe Nicole MD [address] [place] [address] Referring Physician Nephrology 04/24/20 Francisco Javier Uriostegui MD [address] [facility] [address] [place] [address] Consulting Physician Cardiology 11/22/22 documented as of this encounter
--- OUTSIDE RECORDS SUMMARY | 2024-07-19 08:29 | XMS_ITS | Encounter Summary ---
Author Organization [facility] Address [address] [place] [address] Phone Care Team Providers Care Group Teacher Name Role Phone Cheikh Ackerman MD Primary Care Prov ider Pepe Nicole MD Unavailable [phone] Francisco Javier Uriostegui MD Unavailable Encounter [...] on file Legal Sex Female 11:58 PM WINDOWS SYSTEMS ADMINISTRATOR Gender Identity Female 04/03/2018 2:53 PM WINDOWS SYSTEMS ADMINISTRATOR Sexual Orientation Not on file documented as [...] on filedocumented in this encounter Care Teams Group Teacher Relationship Specialty Start Date End Date Cheikh Ackerman MD [address] [place] [address] PCP - General 06/11/16 Pepe Nicole MD [address] [place] [address] Referring Physician Nephrology 04/24/20 Francisco Javier Uriostegui MD [address] [place] [address] Consulting Physician Cardiology 11/22/22 documented as of this encounter
--- OUTSIDE RECORDS SUMMARY | 2024-07-19 08:29 | XMS_ITS | Encounter Summary ---
Author Organization [facility] Facility Care Team Providers Care Industrial Arts Teacher Name Role Phone Cheikh Ackerman MD Primary Care Prov ider Cheikh Ackerman MD Primary Care Prov ider Cheikh Ackerman MD Primary Care Prov ider Pepe Nicole MD Unavailable [phone] Francisco Javier Uriostegui MD Unavailable Encounter Details Date Type Department Care Team (Latest Contact Info) Description 03/12/2016 Orders Only [facility]INCON[facility] ProviderYohan MD [address] [place], [place] [id number] Social History Tobacco Use Types Packs/Day Years Used Date Smoking Tobacco: Never Assessed Comments Unknown Sex and Gender Information Value Date Recorded Sex Assigned at Not on file Legal Sex Female 11:58 PM DEEP FAT FRY COOK Gender Identity Female 04/03/2018 2:53 PM DEEP FAT FRY COOK Sexual Orientation Not on file documented as of this encounter Plan of Treatment Not on file documented as of this encounter Procedures Procedure Name Priority Date/Time Associated Diagnosis Comments SCAN - LABS 04/06/2016 12:00 AM DEEP FAT FRY COOK SCAN - PATHOLOGY 03/12/2016 12:0 0 AM DEEP FAT FRY COOK documented in this encounter Results * SCAN - LABS (04/06/2016 12:00 AM DEEP FAT FRY COOK) Narrative 04/06/2016 12:00 AM DEEP FAT FRY COOK Ordered by an unspecified provider. Historical Provider Final Res ult * SCAN - PATHOLOGY (03/12/2016 12:00 AM DEEP FAT FRY COOK) Narrative 03/12/2016 12:00 AM DEEP FAT FRY COOK Ordered by an unspecified provider. Historical Provider Final Res ult documented in this encounter Visit Diagnoses Not on filedocumented in this encounter Care Teams Industrial Arts Teacher Relationship Specialty Start Date End Date Cheikh Ackerman MD [address] [place] [address] PCP - General 06/11/16 Cheikh Ackerman MD [address] [place] [address] PCP - General 05/04/16 06/10/16 Cheikh Ackerman MD [address] [place] [address] PCP - General 04/25/06 05/03/16 Pepe Nicole MD [address] [place] [address] Referring Physician Nephrology 04/24/20 Francisco Javier Uriostegui MD [address] [place] [address] Consulting Physician Cardiology 11/22/22 documented as of this encounter
--- OUTSIDE RECORDS SUMMARY | 2024-07-19 08:29 | XMS_ITS | Encounter Summary ---
Author Organization [facility] Address [address] [place] [address] Care Team Providers Care Block Chopper Hand Name Role Phone Linda Euceda Primary Care Provider [phone] Encounter Details Date Type Department Care Team (Late st Contact Info) Description 05/20/2021 VR1 Message Enc [facility] Family & Internal Medicine [facility] [id number] [place] [phone] [place] [address] [place] [address] 05/26/21 Appointment Social History Tobacco [...] on file Legal Sex Female 5:38 PM HUMIDIFIER OPERATOR Gender Identity Not on file Sexual Orientation Not on file COVID-19 Exposure Response Date Recorded In the last 10 days, have yo u been in contact with someone who was confirmed or suspected to have Coronavirus/COVID-19? No / Unsure 04/21/2021 3:52 PM HUMIDIFIER OPERATOR documented as of this encounter Plan of Treatment Not on file documented as of this encounter Visit Diagnoses Not on filedocumented in this encounter Additional Health Concerns Assessment Noted Time PHQ-9 Depression Total Score: 8 04/21/19 22 4:17 PM HUMIDIFIER OPERATOR documented as of this encounter Care Teams Block Chopper Hand Relationship Specialty [place] [address] [place] [address] PCP - General PHYSICIAN PATHOLOGY TRANSCRIPTIONIST 04/08/21 documented as of this encounter
--- OUTSIDE RECORDS SUMMARY | 2024-07-19 08:29 | XMS_ITS | Referral Summary ---
Author Organization [facility] Address [address] [place] [address] Care Team Providers Care Parking Line Painter Name Role Phone Cheikh Ackerman MD Primary Care Prov ider Pepe Nicole MD Unavailable [phone] Francisco Javier Uriostegui MD Unavailable Encounters Date Type Department Care Team Description 07/16/2024 Documentation [facility] Pulmonary [address] [facility] Medicine 8th [place] [address] [place] [phone] Lita Dueñas RN 07/02/2024 Telephone [facility] Medical Group Cardiology [address] [place] [address] Francisco Javier Uriostegui MD 06/27/2024 Telephone [facility] Medical [facility] Cardiology [address] [place] [address] Francisco Javier Uriostegui MD 05/29/2024 Telephone [facility] Nephrology [address] [facility] Medicine 5th [place] [address] [place] [address] Pepe Nicole MD Medication change 05/18/2024 1:40 PM GROUND PRODUCTS DIRECTOR - 05/18/2024 11:59 PM GROUND PRODUCTS DIRECTOR Hospital Encounter [address] [address] Bilateral knee swelling; Chronic pain of both knees Discharge Disposition: Discharge to home or self care 05/18/2024 1:00 PM GROUND PRODUCTS DIRECTOR Office Visit [facility] Medical [facility] Sports Medicine and Primary Care at [address] [place] [address] Ash Godwin, Bilateral knee swelling (Primary Dx); Chronic pain of both knees 05/14/2024 9:00 AM GROUND PRODUCTS DIRECTOR Office Visit [facility] Sports Medicine and Primary Care at [address] [place] [phone] Ash Godwin, Primary osteoarthritis of both knees (Primary Dx) 05/03/2024 Telephone [facility] Rheumatology [address] [place] [address] Office [address] [phone] Crissy Mcadams NP 05/01/2024 1:30 PM GROUND PRODUCTS DIRECTOR Office Visit [facility] Rheumatology [address] [place] [address] Office Building 2 [facility] [address] [place] [phone] Crissy Mcadams, LACY Polymyalgia rheumatica syndrome (Primary Dx); longterm (current) use of systemic steroids from Last 3 Months Allergies Active Allergy Reactions Criticality Noted Date Comments Itraconazole Unknown Medications lancets (onetouch ultrasoft) misc Test sugars two times per day as directed 200 3 8 Active blood glucose diagnostic (ONETOUCH ULTRA TEST) strip Test sugars two times per day as directed 200 3 8 Active acetaminophen ER (TYLENOL ARTHRITIS PAIN) 650 mg 8 hr tablet take 2 tablet by oral route twice daily as needed swallowing whole with water. Do not break, crush, dissolve and/or chew. 0 0 7 Active BD INTEGRA SYRINGE 3 mL 25 gauge x 1 syringe 6 8 Active LORazepam (ATIVAN) 0.5 mg tablet Take 1 tablet (0.5 mg total) by mouth as needed 3 Active traMADoL (ULTRAM) 50 mg tablet Take 1 tablet (50 mg total) by mouth as needed for pain Active insulin glargine (LANTUS) 100 unit/mL (3 mL) pen for injection Inject 54 units. 1 times per day when off pump TDD 54 units. 15 mL 1 4 Active insulin syringe-needle U-100 (BD Insulin Syringe Ultra-Fine) 0.3 mL 31 gauge x 5/16 syringe Use to inject insulin 5 times per day when off pump 100 each 1 4 Active pen needle, diabetic (BD Vicki 2nd Gen Pen Needle) 32 gauge x 5/32 needle Use to inject insulin 4 times per day - when off pump 100 each 3 4 Active evolocumab (Repatha SureClick) 140 mg/mL pen injector Inject 1 mL (140 mg total) under the skin every 14 (fourteen) days 2 mL 11 4 Active losartan (COZAAR) 50 mg tablet Take 1 tablet (50 mg total) by mouth daily 30 tablet 11 4 09/20/19 25 Active insulin aspart (NovoLOG) 100 unit/mL vial for injectionIndica tions:Type 2 diabetes mellitus without complication, with long-term current use of insulin (HCC) USE WITH INSULIN PUMP, MAXIMUM DAILY DOSE IS 120 UNITS 110 mL 2 4 Active insulin lispro (HumaLOG) 100 unit/mL vial for injectionIndica tions:Type 2 diabetes mellitus without complication, with long-term current use of insulin (HCC) Use the insulin for insulin pump max TDD 120 units daily 110 mL 3 4 Active clopidogreL (PLAVIX) 75 mg tablet TAKE 1 TABLET(75 MG) BY MOUTH DAILY 90 tablet 1 4 Active ergocalciferol (VITAMIN D) 50,000 unit capsule Take 1 capsule (50,000 Units total) by mouth every 14 (fourteen) days 6 capsule 3 5 03/15/19 26 Active blood-glucose sensor (Startup Cincycom G7 Sensor) device CHANGE SENSOR EVERY 10 DAYS 3 each 11 5 Active nystatin powder Apply topically 4 (four) times a day 15 g 1 5 05/01/19 26 Active metoprolol XL (TOPROL-XL) 50 mg extended release tablet TAKE 1 TABLET(50 MG) BY MOUTH DAILY 90 tablet 3 5 Active furosemide (LASIX) 40 mg tablet TAKE 1 TABLET BY MOUTH DAILY NEEDED FOR LOWER EXTREMITY SWELLING 90 tablet 5 Active Active Problems Problem Noted Date Diagnosed Date Claudication of calf muscles 01/24/2024 Current chronic use of systemic steroids 024 Type 2 diabetes mellitus wit hout complication, with long-term current use of insulin 10/25/2023 ILD (interstitial lung disease) 10/05/2023 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 incidents 08/05/2023 BOOP (bronchiolitis [...] on prednisone - advised to contact her market basket maker to discuss her blood pressure and edema [...] on file Legal Sex Female 11:58 PM GROUND PRODUCTS DIRECTOR Gender Identity Female 04/03/2018 2:53 PM GROUND PRODUCTS DIRECTOR Sexual Orientation Not on file Last Filed Vital Signs Vital Sign Reading Time Taken Comments Blood Pressure 117/70 05/18/2024 1:18 PM GROUND PRODUCTS DIRECTOR Pulse 93 05/18/2024 1:18 PM GROUND PRODUCTS DIRECTOR Temperature 36.6 C (97.8 F) 05/01/2024 1:26 PM GROUND PRODUCTS DIRECTOR Respiratory Rate 20 10/05/2023 10:52 AM CDT Oxygen Saturation 97% 05/01/2024 1:26 PM GROUND PRODUCTS DIRECTOR Inhaled Oxygen Concentration - - Weight 85.7 kg (189 lb) 05/18/2024 1:18 PM GROUND PRODUCTS DIRECTOR Height 165.1 cm (5' 5 ) 05/18/2024 1:18 PM GROUND PRODUCTS DIRECTOR Body Mass Index 31.45 05/18/2024 1:18 PM GROUND PRODUCTS DIRECTOR Plan of Treatment Not on file Procedures Procedure Name Priority Date/Time Associated Diagnosis Comments CRYSTAL ANALYSIS, BODY FLUID Routine 05/18/2024 1:40 PM GROUND PRODUCTS DIRECTOR Bilateral knee swelling Chronic pain of both knees MA ARTHROCENTESIS ASPIR&/INJ MAJOR JT/BURSA W/US Routine 05/18/2024 1:00 PM GROUND PRODUCTS DIRECTOR Bilateral knee swelling Chronic pain of both knees EGFR Routine 03/12/2024 11:25 AM GROUND PRODUCTS DIRECTOR CKD (chronic kidney disease) stage 4, GFR 15-29 ml/min ([facility]) Vitamin D deficiency Proteinuria, unspecified type POCT HEMOGLOBIN A1C Routine 10/25/2023 9 :17 AM CDT Type 2 diabetes mellitus without complication, with long-term current use of insulin ([facility]) POCT LIPID PANEL Routine 08/10/2023 2:56 PM CDT Lipid screening from Last 3 Months or Most Recently Relevant to Health Maintenance Results * Crystal Analysis, Body Fluid (05/18/2024 1:40 PM GROUND PRODUCTS DIRECTOR) Specimen type, fld Synovial Crystals Not Present ALICE WATT Fluid 05/18/2024 1:40 PM GROUND PRODUCTS DIRECTOR 05/18/2024 10:31 PM GROUND PRODUCTS DIRECTOR Narrative ALICE WATT - 05/21/2024 7:50 AM CDT Specify:->Right knee Result [facility] Ash Godwin DO LAB BODY FLUIDS AND ST OOLS ORDERABLES Final Result ALICE [id number] [place] [address] * MA ARTHROCENTESIS ASPIR&/INJ MAJOR JT/BURSA W/US (05/18/2024 1:00 PM GROUND PRODUCTS DIRECTOR) Narrative Ash Godwin DO - 05/18/2024 1:00 PM GROUND PRODUCTS DIRECTOR Ash Godwin DO 05/18/2024 1:44 PM Large Joint Injection w/ Ultrasound Guidance: bilateral knee Performed by: Ash Godwin DO Authorized by: Ash Gowdin DO Large Joint Injection/Aspiration: Consent Given by: [...] IN CLINIC/BEDSIDE TARAN REYES Final Result * (ABNORMAL) eGFR (03/12/2024 11:25 AM GROUND PRODUCTS DIRECTOR) eGFR 35(L) >=60 mL/min/1. 73 m2 Comment: [...] reviewed 2021. Blood 03/12/2024 11:2 5 AM GROUND PRODUCTS DIRECTOR 03/12/2024 8:18 PM GROUND PRODUCTS DIRECTOR us Brittnee Blackwell MD LAB BLOOD ORDERABLES Fi nal Result ALICE [id number] [place] [address] * POCT hemoglobin A1c (10/25/2023 9:17 AM [...] Most Recently Relevant to Health Maintenance Insurance [facility] ACCESS CHOICE ANTHEM ACCESS CHOICE Care Teams Parking Line Painter Relationship Specialty Start Date End Date Cheikh Ackerman MD [address] [place] [address] PCP - General 06/11/16 Pepe Nicole MD [address] [facility] [address] [place] [address] Referring Physician Nephrology 04/24/20 Francisco Javier Uriostegui MD [address] [place], [place] [address] Consulting Physician Cardiology 11/22/22
--- OUTSIDE RECORDS SUMMARY | 2024-07-19 08:29 | XMS_ITS | Encounter Summary ---
Author Organization [facility] Address [address] [place] [address] Phone Care Team Providers Care Online Media Director Name Role Phone Cheikh Ackerman MD Primary Care Prov ider Pepe Nicole MD Unavailable [phone] Francisco Javier Uriostegui MD Unavailable Encounter [...] on file Legal Sex Female 11:58 PM HEALTH INFORMATION TECHNOLOGIST Gender Identity Female 04/03/2018 2:53 PM HEALTH INFORMATION TECHNOLOGIST Sexual Orientation Not on file documented as of this encounter Plan of Treatment Not on file documented as of this encounter Procedures Procedure Name Priority Date/Time Associated Diagnosis Comments SCAN - LABS 01/13/2021 documented in this encounter Results * SCAN - LABS (01/13/2021) us Provider Scanning Final Result documented in this encounter Visit Diagnoses Not on filedocumented in this encounter Care Teams Online Media Director Relationship Specialty Start Date End Date Cheikh Ackerman MD [address] [place] [address] PCP - General 06/11/16 Pepe Nicole MD [address] [place] [address] Referring Physician Nephrology 04/24/20 Francisco Javier Uriostegui MD [address] [place] [address] Consulting Physician Cardiology 11/22/22 documented as of this encounter
--- OUTSIDE RECORDS SUMMARY | 2024-07-19 08:29 | XMS_ITS | Encounter Summary ---
Author Organization [facility] Address [facility] [place] [address] Care Team Providers Care Criminal Justice Lawyer Name Role Phone Linda Euceda Primary Care Provider [phone] Encounter Details Date Type Department Care Team (Late st Contact Info) Description 02/05/2022 Appy Couple Message Enc [facility] Medical Group Family & Internal Medicine [facility] [id number] [place] [address] [facility] Provider Pap smear Social History Tobacco Use [...] on file Legal Sex Female 5:38 PM BOWLING ALLEY FLOORS INSTALLER Gender Identity Not on file Sexual Orientation Not on file documented as of this encounter Plan of Treatment Not on file documented as of this encounter Visit Diagnoses Not on filedocumented in this encounter Additional Health Concerns Assessment Noted Time PHQ-9 Depression Total Score: 8 04/21/19 22 4:17 PM BOWLING ALLEY FLOORS INSTALLER documented as of this encounter Care Teams Criminal Justice Lawyer Relationship Specialty [place] [address] [place] [address] PCP - General PHYSICIAN ELECTRIC SHAVER MECHANIC 04/08/21 documented as of this encounter
--- OUTSIDE RECORDS SUMMARY | 2024-07-19 08:29 | XMS_ITS | Encounter Summary ---
Author Organization [facility] Care Team Providers Care Supervisor Twisting Department Name Role Phone Cheikh Ackerman MD Primary Care Prov ider Cheikh Ackerman MD Primary Care Prov ider Cheikh Ackerman MD Primary Care Prov ider Pepe Nicole MD Unavailable [phone] Francisco Javier Uriostegui MD Unavailable Encounter Details Date Type Department Care Team (Latest Contact Info) Description 03/04/2016 Orders Only [facility] ProviderYohan MD [address] [place] [address] Social History Tobacco Use Types Packs/Day Years Used Date Smoking Tobacco: Never Assessed Comments Unknown Sex and Gender Information Value Date Recorded Sex Assigned at Not on file Legal Sex Female 11:58 PM ELECTRICAL ENGINEER Gender Identity Female 04/03/2018 2:53 PM ELECTRICAL ENGINEER Sexual Orientation Not on file documented as of this encounter Plan of Treatment Not on file documented as of this encounter Procedures Procedure Name Priority Date/Time Associated Diagnosis Comments SCAN - LABS 03/04/2016 12:00 AM ELECTRICAL ENGINEER documented in this encounter Results * SCAN - LABS (03/04/2016 12:00 AM ELECTRICAL ENGINEER) Narrative 03/04/2016 12:00 AM ELECTRICAL ENGINEER Ordered by an unspecified provider. us Historical Provider Final Res ult documented in this encounter Visit Diagnoses Not on filedocumented in this encounter Care Teams Supervisor Twisting Department Relationship Specialty Start Date End Date Cheikh Ackerman MD [address] [place] [address] PCP - General 06/11/16 Cheikh Ackerman MD [address] [place] [address] PCP - General 05/04/16 06/10/16 Cheikh Ackerman MD [address] [place] [address] PCP - General 04/25/06 05/03/16 Pepe Nicole MD [address] [place] [address] Referring Physician Nephrology 04/24/20 Francisco Javier Uriostegui MD [address] [facility] [address] [place] [address] Consulting Physician Cardiology 11/22/22 documented as of this encounter
--- OUTSIDE RECORDS SUMMARY | 2024-07-19 08:29 | XMS_ITS | Encounter Summary ---
Author Organization [facility] Address [address] [place] [address] Phone Care Team Providers Care Community Ambassador Name Role Phone Cheikh Ackerman MD Primary Care Prov ider Pepe Nicole MD Unavailable [phone] Francisco Javier Uriostegui MD Unavailable Encounter [...] on file Legal Sex Female 11:58 PM SPACE AND MISSILE OPERATIONS SPACELIFT Gender Identity Female 04/03/2018 2:53 PM SPACE AND MISSILE OPERATIONS SPACELIFT Sexual Orientation Not on file documented as [...] on filedocumented in this encounter Care Teams Community Ambassador Relationship Specialty Start Date End Date Cheikh Ackerman MD [address] [place] [address] PCP - General 06/11/16 Pepe Nicole MD [address] [place] [address] Referring Physician Nephrology 04/24/20 Francisco Javier Uriostegui MD [address] [facility] [address] [place] [address] Consulting Physician Cardiology 11/22/22 documented as of this encounter
--- OUTSIDE RECORDS SUMMARY | 2024-07-19 08:29 | XMS_ITS | Encounter Summary ---
Author Organization [facility] Medical Group Address [address] [address] Care Team Providers Care Discharging Machine Operator Name Role Phone Cheikh Ackerman MD Primary Care Prov ider Cheikh Ackerman MD Primary Care Prov ider Cheikh Ackerman MD Primary Care Prov ider Pepe Nicole MD Unavailable [phone] Francisco Javier Uriostegui MD Unavailable Encounter Details Date Type Department Care Team (Late st Contact Info) Description 10/08/2015 Orders Only [facility] Provider, MD Yohan [address] [place] [address] Social History Tobacco Use Types Packs/Day Years Used Date Smoking Tobacco: Never Assessed Comments Unknown Sex and Gender Information Value Date Recorded Sex Assigned at Not on file Legal Sex Female 11:58 PM CENTRIFUGAL OPERATOR Gender Identity Female 04/03/2018 2:53 PM CENTRIFUGAL OPERATOR Sexual Orientation Not on file documented [...] on filedocumented in this encounter Care Teams Discharging Machine Operator Relationship Specialty Start Date End Date Cheikh Ackerman MD [address] [place] [address] PCP - General 06/11/16 Cheikh Ackerman MD [address] [place] [address] PCP - General 05/04/16 06/10/16 Cheikh Ackerman MD [address] [place] [address] PCP - General 04/25/06 05/03/16 [place] [address] [place] [address] [address] [place] [address] Referring Physician Nephrology 04/24/20 Francisco Javier Uriostegui MD [address] [facility] [address] [facility] [address] [place] [address] Consulting Physician Cardiology 11/22/22 documented as of this encounter
--- OUTSIDE RECORDS SUMMARY | 2024-07-19 08:29 | XMS_ITS | Encounter Summary ---
Author Organization [facility] Facility Care Team Providers Care Vegetable Thinner Name Role Phone Cheikh Ackerman MD Primary Care Prov ider Cheikh Ackerman MD Primary Care Prov ider Cheikh Ackerman MD Primary Care Prov ider Pepe Nicole MD Unavailable [phone] Francisco Javier Uriostegui MD Unavailable Encounter Details Date Type Department Care Team (Latest Contact Info) Description 02/26/2016 Orders Only [facility]IN[facility] ProviderYohan MD [address] [place] [address] Social History Tobacco Use Types Packs/Day Years Used Date Smoking Tobacco: Never Assessed Comments Unknown Sex and Gender Information Value Date Recorded Sex Assigned at Not on file Legal Sex Female 11:58 PM COMMUNITY HEALTH NURSE Gender Identity Female 04/03/2018 2:53 PM COMMUNITY HEALTH NURSE Sexual Orientation Not on file documented as of this encounter Plan of Treatment Not on file documented as of this encounter Procedures Procedure Name Priority Date/Time Associated Diagnosis Comments PROCEDURE - RESULT 02/26/2016 12 :00 AM COMMUNITY HEALTH NURSE documented in this encounter Results * PROCEDURE - RESULT (02/26/2016 12:00 AM COMMUNITY HEALTH NURSE) Narrative 02/26/2016 12:00 AM COMMUNITY HEALTH NURSE Ordered by an unspecified provider. us Historical Provider Final Res ult documented in this encounter Visit Diagnoses Not on filedocumented in this encounter Care Teams Vegetable Thinner Relationship Specialty Start Date End Date Cheikh Ackerman MD [address] [place] [address] PCP - General 06/11/16 Cheikh Ackerman MD [address] [place] [address] PCP - General 05/04/16 06/10/16 Cheikh Ackerman MD [address] [place] [address] PCP - General 04/25/06 05/03/16 Pepe Nicole MD [address] [place] [address] Referring Physician Nephrology 04/24/20 Francisco Javier Uriostegui MD [address] [facility] [address] [place] [address] Consulting Physician Cardiology 11/22/22 documented as of this encounter
--- OUTSIDE RECORDS SUMMARY | 2024-07-19 08:29 | XMS_ITS | Continuity of Care Document ---
Author Organization [facility] Address [address] [place] [address] utive [facility] [address] [place] [address] Phone Care Team Providers Care Cut Pressman Name Role Phone Brooke Amador Unavailable Unavailable Procedures Procedure Date Eye Exam, New Patient Advance Directives Directive Yes / No Effective Date File Name No Information Encounters Encounter Description Practice Location Reason(s) For Visit Diagnoses Date Provider Providers Copied on Encounter [facility], [address] [place] [address] [address], [place], [place], [id number], [place] tel:[phone] [facility] No Information 8-200 8 Marjorie Cox. [address], [place], [address], [place]. tel:[phone] Family History Family Member Type Diagnosis Age [...]
--- OUTSIDE RECORDS SUMMARY | 2024-07-19 08:29 | XMS_ITS | Clinical Summary ---
Author Organization [facility] Address [address] [place] [address] Care Team Providers Care Software Sales Name Role Phone Cheikh Ackerman MD Primary Care Prov ider Pepe Nicole MD Unavailable [phone] Francisco Javier Uriostegui MD Unavailable Allergies [...] 3 5 03/15/19 26 Active blood-glucose sensor (Dexcom G7 Sensor) device [...] insulin 10/25/2023 ILD (interstitial lung disease) 10/05/2023 regulatory scientist associated with adverse incidents 08/05/2023 BOOP (bronchiolitis [...] on prednisone - advised to contact her electrical prospecting operator to discuss her blood pressure and edema [...] Type Department Care Team Description 07/16/2024 Documentation [facility] Pulmonary [address] [facility] Advanced Medicine 8th [place] [address] [place] [address] Lita Dueñas RN 07/02/2024 Telephone [facility] Cardiology [address] [place] [address] Francisco Javier Uriostegui MD 06/27/2024 Telephone [facility] Cardiology [address] [place] [address] Francisco Javier Uriostegui MD 05/29/2024 Telephone [facility] Nephrology [address] [facility] Medicine 5th [place] [address] [place] [address] Pepe Nicole MD Medication change 05/18/2024 1:40 PM NURSERY MANAGER - 05/18/2024 11:59 PM NURSERY MANAGER Hospital Encounter [facility] [address] [place] [address] Bilateral knee swelling; Chronic pain of both knees Discharge Disposition: Discharge to home or self care 05/18/2024 1:00 PM NURSERY MANAGER Office Visit [facility] Sports Medicine and Primary Care at [address] [place] [address] Ash Godwin DO Bilateral knee swelling (Primary Dx); Chronic pain of both knees 05/14/2024 9:00 AM NURSERY MANAGER Office Visit [facility] Sports Medicine and Primary Care at [address] [place] [address] Ash Godwin, Primary osteoarthritis of both knees (Primary Dx) 05/03/2024 Telephone [facility] Rheumatology [address] [place] [address] Office [address] [place] [address] Crissy Mcadams NP 05/01/2024 1:30 PM NURSERY MANAGER Office Visit [facility] Rheumatology [address] [place] [address] [address] [place] [address] Crissy Mcadams NP Polymyalgia rheumatica syndrome (Primary Dx); long term care social worker (current) use of systemic steroids from Last 3 Months Medical History Medical [...] on file Legal Sex Female 11:58 PM NURSERY MANAGER Gender Identity Female 04/03/2018 2:53 PM NURSERY MANAGER Sexual Orientation Not on file Obstetrics History Last Filed Vital Signs Vital Sign Reading Time Taken Comments Blood Pressure 117/70 05/18/2024 1:18 PM NURSERY MANAGER Pulse 93 05/18/2024 1:18 PM NURSERY MANAGER Temperature 36.6 C (97.8 F) 05/01/2024 1:26 PM NURSERY MANAGER Respiratory Rate 20 10/05/2023 10:52 AM CDT Oxygen Saturation 97% 05/01/2024 1:26 PM NURSERY MANAGER Inhaled Oxygen Concentration - - Weight 85.7 kg (189 lb) 05/18/2024 1:18 PM NURSERY MANAGER Height 165.1 cm (5' 5 ) 05/18/2024 1:18 PM NURSERY MANAGER Body Mass Index 31.45 05/18/2024 1:18 PM NURSERY MANAGER Plan of Treatment Health Maintenance Due Date [...] - 2023-2 5 season) 2023 04/29/2020, 04/01/2020 Hemoglobin A1C 04/26/2024 10/25/2023, 03, 11/03/2022, Additional history exists Lipid Panel 08/09/2024 08/10/2023, 0308/2022, 04/16/2020, Additional history exists Influenza Vaccine (Season Ended) 2024 10/31/19 16, 10/17/2015 eGFR 03/12/2025 03/12/2024, 11/10/2023, 10/05/2023, Additional history exists Procedures Procedure Name Priority Date/Time Associated Diagnosis Comments CRYSTAL ANALYSIS, BODY FLUID Routine 05/18/2024 1:40 PM NURSERY MANAGER Bilateral knee swelling Chronic pain of both knees VT ARTHROCENTESIS ASPIR&/INJ MAJOR JT/BURSA W/US Routine 05/18/2024 1:00 PM NURSERY MANAGER Bilateral knee swelling Chronic pain of both knees EGFR Routine 03/12/2024 11:25 AM NURSERY MANAGER CKD (chronic kidney disease) stage 4, GFR 15-29 ml/min ([facility]) Vitamin D deficiency Proteinuria, unspecified type POCT HEMOGLOBIN A1C Routine 10/25/2023 9 :17 AM CDT Type 2 diabetes mellitus without complication, with long-term current use of insulin ([facility]) POCT LIPID PANEL Routine 08/10/2023 2:56 PM CDT Lipid screening from Last 3 Months or Most Recently Relevant to Health Maintenance Results * Crystal Analysis, Body Fluid (05/18/2024 1:40 PM NURSERY MANAGER) Specimen type, fld Synovial Crystals Not Present ALICE WATT Fluid 05/18/2024 1:40 PM NURSERY MANAGER 05/18/2024 10:31 PM NURSERY MANAGER Narrative ALICE WATT - 05/21/2024 7:50 AM CDT Specify:->Right knee Ash Godwin DO LAB BODY FLUIDS AND ST OOLS ORDERABLES Final Result ALICE [address] Department of Laboratories [place] [id number] * [place] ARTHROCENTESIS ASPIR&/INJ MAJOR JT/BURSA W/US (05/18/2024 1:00 PM NURSERY MANAGER) Narrative Ash Godwin DO - 05/18/2024 1:00 PM NURSERY MANAGER Ash Godwin DO 05/18/2024 1:44 PM Large [...] guided right knee injection Patient name: Rosanne De Leonbernie [...] Result * (ABNORMAL) eGFR (03/12/2024 11:25 AM NURSERY MANAGER) eGFR 35(L) >=60 mL/min/1. 73 m2 Comment: [...] reviewed 2021. Blood 03/12/2024 11:2 5 AM NURSERY MANAGER 03/12/2024 8:18 PM NURSERY MANAGER us Brittnee Blackwell MD LAB BLOOD ORDERABLES Fi nal Result ALICE [address] [address] [place] [address] * POCT hemoglobin A1c (10/25/2023 9:17 AM [...] Most Recently Relevant to Health Maintenance Insurance [facility] ACCESS CHOICE ANTHEM ACCESS CHOICE Care Teams Software Sales Relationship Specialty Start Date End Date Cheikh Ackerman MD [address] [place] [address] PCP - General 06/11/16 Pepe Nicole MD [address] [place] [address] Referring Physician Nephrology 04/24/20 Francisco Javier Uriostegui MD [address] [facility] [address] [place], [place] [id number] Consulting Physician Cardiology 11/22/22
--- OUTSIDE RECORDS SUMMARY | 2024-07-19 08:29 | XMS_ITS | Clinical Summary ---
Author Organization [facility] Address [address] [place] [address] Care Team Providers Care Contract Driver Name Role Phone Vanessa Cardoso MD Primary Care Provider [phone] Source Comments [facility],non-owned Affiliates and Associated Physician Practices is amultiple site organization consisting of ambulatory clinics and hospital sitesin [place] and [place]. This disclosure is being madepursuant to the Care Everywhere program and may not contain all information available regarding this patient. Last updated 17.[facility] Social History Tobacco Use Types Packs/Day Years Used Date Smoking Tobacco: Never Assessed Comments Unknown Sex and Gender Information Value Date Recorded Sex Assigned at Not on file Legal Sex Female 5:40 AM METAL FABRICATOR Gender Identity Not on file Sexual Orientation Not on file Plan of Treatment Health Maintenance Due Date Last Done Comments COLOGUARD (AGES 45-75) - COL ON CA SCREENING 1965 COLON MONITORING 1964 COLONOSCOPY - COLON CA SCREENING 1964 CT COLONOGRAPHY - COLON CA SCREENING 1964 Colorectal Cancer Screening 1964 FIT - COLON CA SCREENING 1964 FLEX SIG - COLON CA SCREENING 1964 MAMMOGRAM 1964 HIV SCREENING 1979 HEPATITIS C SCREENING 05/07/1982 DTAP/TDAP/TD VACCINES (1 - Tdap) 1983 PNEUMOCOCCAL VACCINE 50+ (1 of 1 - PCV) 2014 ZOSTER VACCINE (1 of 2) 2014 COVID-19 VACCINE (3 - 2023-2 5 season) 2023 04/29/2020, 04/01/2020 DEPRESSION SCREENING 03/14/2024 PAP SMEAR 04/21/2024 04/21/2021, 04/21/2021 INFLUENZA VACCINE (Season Ended) 2024 LIPID TESTING 08/09/2028 08/10/2023 Respiratory Syncytial Virus (RSV) Vaccine Pt: or [...] complete this topic MENINGOCOCCAL (Group B) VACCINE SHARED DECISION-MAKING Aged Out No longer eligible based on patient's age to complete this topic MENINGOCOCCAL GROUPS A/C/Y/W VACCINE Aged Out No longer eligible b ased on patient's age to complete this topic Insurance AN[employer] SELF PAY NO INSURANCE Member Subscriber Plan / Payer (Ef fective for All Dates) Name:Rosanne Sidhu Member ID:Not on file Relation to Subscriber:Not on file Name:ROSANNE SIDHU Subscriber ID:Not on file (Home) Address: [address] [place] [id number] Payer ID:Not on file Group ID:Not on file Type:Self Pay Address: [place], [place] Care Teams Contract Driver Relationship Specialty Start Date End Date Vanessa Cardoso MD [address] [place] [address] PCP - General 01/09/21
--- OUTSIDE RECORDS SUMMARY | 2024-07-19 08:29 | XMS_ITS | Encounter Summary ---
Author Organization [facility] Facility Care Team Providers Care Room Service Manager Name Role Phone Cheikh Ackerman MD Primary Care Prov ider Cheikh Ackerman MD Primary Care Prov ider Cheikh Ackerman MD Primary Care Prov ider Pepe Nicole MD Unavailable [phone] Francisco Javier Uriostegui MD Unavailable Encounter Details Date Type Department Care Team (Latest Contact Info) Description 02/11/2016 Orders Only [facility] CLINCONV ProviderYohan MD [address] [place] [address] Social History Tobacco Use Types Packs/Day Years Used Date Smoking Tobacco: Never Assessed Comments Unknown Sex and Gender Information Value Date Recorded Sex Assigned at Not on file Legal Sex Female 11:58 PM SUPERVISOR RECEIVING AND PROCESSING Gender Identity Female 04/03/2018 2:53 PM SUPERVISOR RECEIVING AND PROCESSING Sexual Orientation Not on file documented as of this encounter Plan of Treatment Not on file documented as of this encounter Procedures Procedure Name Priority Date/Time Associated Diagnosis Comments PROCEDURE - RESULT 02/11/2016 12 :00 AM SUPERVISOR RECEIVING AND PROCESSING documented in this encounter Results * PROCEDURE - RESULT (02/11/2016 12:00 AM SUPERVISOR RECEIVING AND PROCESSING) Narrative 02/11/2016 12:00 AM SUPERVISOR RECEIVING AND PROCESSING Ordered by an unspecified provider. us Historical Provider Final Res ult documented in this encounter Visit Diagnoses Not on filedocumented in this encounter Care Teams Room Service Manager Relationship Specialty Start Date End Date Cheikh Ackerman MD [address] [place] [address] PCP - General 06/11/16 Cheikh Ackerman MD [address] [place] [address] PCP - General 05/04/16 06/10/16 Cheikh Ackerman MD [address] [place] [address] PCP - General 04/25/06 05/03/16 Pepe Nicole MD [address] [place] [address] Referring Physician Nephrology 04/24/20 Francisco Javier Uriostegui MD [address] [facility] [address] [place] [address] Consulting Physician Cardiology 11/22/22 documented as of this encounter
--- OUTSIDE RECORDS SUMMARY | 2024-07-19 08:29 | XMS_ITS | Encounter Summary ---
Author Organization [facility] Address [address] [place] [address] Care Team Providers Care Aircraft Engine Mechanic Name Role Phone Cheikh Ackerman MD Primary Care Prov ider Pepe Nicole MD Unavailable [phone] Francisco Javier Uriostegui MD Unavailable Encounter Details Date Type Department Care Team (Late st Contact Info) Description 07/02/2024 Telephone [facility] Medical Group Cardiology [address] [place] [address] Francisco Javier Uriostegui MD [address] [address] Social History Tobacco Use Types Packs/Day Years [...] on file Legal Sex Female 11:58 PM CREDIT ADJUSTER Gender Identity Female 04/03/2018 2:53 PM CREDIT ADJUSTER Sexual Orientation Not on file documented as of this encounter Miscellaneous Notes * Telephone Encounter - Viri Shah MA - 07/02/2024 11:27 AM CDT Faxed via [facility] * Telephone Encounter - Phyllis Lan - 07/02/2024 11:22 AM CDT Radha from Dr. Holden office requesting most recent echo results be faxed to their office. Thank you. Contact: documented in this encounter Plan of Treatment Not on file documented as of this encounter Visit Diagnoses Not on filedocumented in this encounter Care Teams Aircraft Engine Mechanic Relationship Specialty Start Date End Date Cheikh Ackerman MD [address] [place] [address] PCP - General 06/11/16 Pepe Nicole MD [address] [place] [address] Referring Physician Nephrology 04/24/20 Francisco Javier Uriostegui MD [address] [place] [address] Consulting Physician Cardiology 11/22/22 documented as of this encounter
--- OUTSIDE RECORDS SUMMARY | 2024-07-19 08:29 | XMS_ITS | Clinical Summary ---
Author Organization [facility] Address [address] [place] [address] Care Team Providers Care Rope Silica Machine Operator Name Role Phone David Euceda Primary Care Provider [phone] Allergies Active Allergy Reactions Criticality Noted Date [...] Active Problems No known active problems Immunizations Immunization Administration Dates Next Due MODERNA COVID-19 (12+) [...] on file Legal Sex Female 5:38 PM EXERCISE RIDER Gender Identity Not on file Sexual Orientation Not on file Last Filed Vital Signs Vital Sign Reading Time Taken Comments Blood Pressure 152/90 04/21/2021 4:02 PM EXERCISE RIDER Pulse 78 04/21/2021 4:02 PM EXERCISE RIDER Temperature 37.1 C (98.7 F) 04/21/2021 4:02 PM EXERCISE RIDER Respiratory Rate 18 04/21/2021 4:02 PM EXERCISE RIDER Oxygen Saturation 98% 04/21/2021 4:02 PM EXERCISE RIDER Inhaled Oxygen Concentration - - Weight 91.2 kg (201 lb) 04/21/2021 4:02 PM EXERCISE RIDER Height 165.1 cm (5' 5 ) 04/21/2021 4:02 PM EXERCISE RIDER Body Mass Index 33.45 04/21/2021 4:02 PM EXERCISE RIDER Plan of Treatment Health Maintenance Due Date Last Done Comments Colorectal Cancer Screening Colonoscopy (10 Years) 1964 Hepatitis C 1982 DTaP, Tdap and Td Vaccines ( 1 - Tdap) 1983 Mammogram Screening 2004 Pneumococcal Vaccine: 50+ Years (1 of 1 - PCV) 2014 Zoster Vaccines (1 of 2) 2014 Annual Physical 04/21/2022 04/21/2021 COVID-19 Vaccine (3 - 2023-2 5 season) 2023 04/29/2020, 04/01/2020 Cervical Cancer Screening Pa p Smear (Age [...] PAPILLOMAVIRUS, HIGH-RISK TYPES Routine 04/21/2021 12:00 PM EXERCISE RIDER CYTOPATH CERV/VAG THIN LAYER Routine 04/21/2021 8:03 AM EXERCISE RIDER from Last 3 Months or Most Recently Relevant to Health Maintenance Results * HUMAN PAPILLOMAVIRUS, HIGH-RISK TYPES (04/21/2021 12:00 PM EXERCISE RIDER) SPEC DESCRIPTION CERVICAL/END OCERVICAL 04/23/2021 9:25 AM EXERCISE RIDER [facility] HPV DNA HIGH RISK NEGATIVE NEGATIVE 04/24/2021 11:54 AM EXERCISE RIDER [facility] Comment:SEE CYTOLOGY REPORT 04/21/2021 12:0 0 PM EXERCISE RIDER David GÓMEZ PATHOLOGY/CYTOLOGY ORDERABLE S Final Result [facility] [address] [place] [address], * Cytopath Cerv/Vag Thin Layer (04/21/2021 8:03 AM EXERCISE RIDER) THIN PREP PAP [facility] [address] [place] [address] Department of Pathology Pathology Report CERVICAL/VAGINAL PAP SMEAR REPORT Name: ROSANNE SIDHU Age: 2 1965 (Age: 55) Location: [facility] Sex: F Collected Date: 04/21/2021 [facility] #: [id number] Date Received: 04/23/2021 Date Reported: 04/28/2021 Provider: [...] 68. Electronically Signed Out Niki Teran M.D. CHICO Stearns (ASCP) CLINICAL HISTORY Z12.4 SCREENING PAP TEST [...] is not effective in detecting cervical adenocarcinoma. [facility] 04/21/2021 8:03 AM EXERCISE RIDER 04/23/2021 8:03 AM EXERCISE RIDER Comment:CERVICAL/ENDOCERVICA L us David GÓMEZ PATHOLOGY/CYTOLOGY ORDERABLE S Final Result [facility] [address] [place] [address], from Last 3 Months or Most Recently Relevant to Health Maintenance Insurance [facility] Care Teams Rope Silica Machine Operator Relationship Specialty [place] [address] [place] [address] PCP - General PHYSICIAN MORTGAGE ACCOUNTING CLERK 04/08/21
--- NOTE | 2024-07-19 11:44 | WPDSIXMINUTE ---
Six Minute Walk Procedure Procedure Performed Pulmonary Stress Test (6 min walk) Six Minute Walk Six Minute Walk: This is a 6 minute walk test. The test was performed and interpreted in accordance with the 2014 ERS/ATS task force guidelines. Findings: The patient's resting room air oxygen saturation measured by pulse oximetry was 99%, the heart rate was 63 bpm, and the modified Livan dyspnea score was 0. Patient ambulated for 305 meters and oxygen saturation remained 95 to 98%. At the end of the study the heart rate was 85 bpm and the modified Livan dyspnea score was 1. The patient did not qualify for supplemental oxygen at rest or with ambulation. There are no prior studies for comparison.
== END 2024-07-19 08:27 | disposition home or self-care (01) ==
PROVIDERS: PCP Family Medicine Adolescent Medicine
DX: J84.9 Interstitial pulmonary disease, unspecified (principal); I10 Essential (primary) hypertension
CPT/HCPCS: 94618

== ENCOUNTER 2024-10-19 12:27 | Outpatient (CLI) | payer BC, SELFPAY ==
--- OUTSIDE RECORDS SUMMARY | 2024-10-19 12:30 | XMS_ITS | Encounter Summary ---
Author Organization [facility] Address [address] [place] [address] Care Team Providers Care Shorthand Teacher Name Role Phone Linda Euceda Primary Care Provider [phone] Encounter Details Date Type Department Care Team (Late st Contact Info) Description 05/20/2021 [employer] Message Enc [facility] Family & Internal Medicine [facility] [id number] [place] [address] [place] [address] [place] [address] 05/26/21 Appointment Social History Tobacco [...] on file Legal Sex Female 5:38 PM PHARMACOVIGILANCE SPECIALIST Gender Identity Not on file Sexual Orientation Not on file COVID-19 Exposure Response Date Recorded In the last 10 days, have yo u been in contact with someone who was confirmed or suspected to have Coronavirus/COVID-19? No / Unsure 04/21/2021 3:52 PM PHARMACOVIGILANCE SPECIALIST documented as of this encounter Plan of Treatment Not on file documented as of this encounter Visit Diagnoses Not on filedocumented in this encounter Additional Health Concerns Assessment Noted Time PHQ-9 Depression Total Score: 8 04/21/19 22 4:17 PM PHARMACOVIGILANCE SPECIALIST documented as of this encounter Care Teams Shorthand Teacher Relationship Specialty [place] [address] [place] [address] PCP - General PHYSICIAN HAND CANDY MOLDER 04/08/21 documented as of this encounter
--- OUTSIDE RECORDS SUMMARY | 2024-10-19 12:30 | XMS_ITS | Encounter Summary ---
Author Organization [facility] Facility Care Team Providers Care Performance Test Engineer Name Role Phone Cheikh Ackerman MD Primary Care Prov ider Cheikh Ackerman MD Primary Care Prov ider Cheikh Ackerman MD Primary Care Prov ider Pepe Nicole MD Unavailable Francisco Javier Uriostegui MD Unavailable Encounter Details Date Type Department Care Team (Latest Contact Info) Description 02/18/2016 Orders Only [facility] CLINCONV ProviderYohan MD [address] [place] [address] Social History Tobacco Use Types Packs/Day Years Used Date Smoking Tobacco: Never Assessed Comments Unknown Sex and Gender Information Value Date Recorded Sex Assigned at Not on file Legal Sex Female 11:58 PM AIRPORT CONTROL OPERATOR Gender Identity Female 04/03/2018 2:53 PM AIRPORT CONTROL OPERATOR Sexual Orientation Not on file documented as of this encounter Plan of Treatment Not on file documented as of this encounter Procedures Procedure Name Priority Date/Time Associated Diagnosis Comments SCAN - PATHOLOGY 02/20/2016 12:0 0 AM AIRPORT CONTROL OPERATOR SCAN - LABS 02/20/2016 12:00 AM AIRPORT CONTROL OPERATOR SCAN - LABS 02/20/2016 12:00 AM AIRPORT CONTROL OPERATOR SCAN - LABS 02/20/2016 12:00 AM AIRPORT CONTROL OPERATOR SCAN - LABS 02/20/2016 12:00 AM AIRPORT CONTROL OPERATOR documented in this encounter Results * SCAN - LABS (02/20/2016 12:00 AM AIRPORT CONTROL OPERATOR) Narrative 02/20/2016 12:00 AM AIRPORT CONTROL OPERATOR Ordered by an unspecified provider. Historical Provider Final Res ult * SCAN - PATHOLOGY (02/20/2016 12:00 AM AIRPORT CONTROL OPERATOR) Narrative 02/20/2016 12:00 AM AIRPORT CONTROL OPERATOR Ordered by an unspecified provider. [facility] Provider Final Res ult * SCAN - LABS (02/20/2016 12:00 AM AIRPORT CONTROL OPERATOR) Narrative 02/20/2016 12:00 AM AIRPORT CONTROL OPERATOR Ordered by an unspecified provider. [facility] Provider Final Res ult * SCAN - LABS (02/20/2016 12:00 AM AIRPORT CONTROL OPERATOR) Narrative 02/20/2016 12:00 AM AIRPORT CONTROL OPERATOR Ordered by an unspecified provider. [facility] Provider Final Res ult * SCAN - LABS (02/20/2016 12:00 AM AIRPORT CONTROL OPERATOR) Narrative 02/20/2016 12:00 AM AIRPORT CONTROL OPERATOR Ordered by an unspecified provider. [facility] Provider Final Res ult documented in this encounter Visit Diagnoses Not on filedocumented in this encounter Care Teams Performance Test Engineer Relationship Specialty Start Date End Date Cheikh Ackerman MD [address] [place] [address] PCP - General 06/11/16 Cheikh Ackerman MD [address] [place] [address] PCP - General 05/04/16 06/10/16 Cheikh Ackerman MD [address] [place] [address] PCP - General 04/25/06 05/03/16 Pepe Nicole MD [address] [place] [address] Referring Physician Nephrology 04/24/20 Francisco Javier Uriostegui MD [address] [email or web address] [address] [place] [address] Consulting Physician Cardiology 11/22/22 documented as of this encounter
--- OUTSIDE RECORDS SUMMARY | 2024-10-19 12:30 | XMS_ITS | Encounter Summary ---
Author Organization [facility] Address [facility] [place] [address] Care Team Providers Care Duty Engineer Name Role Phone Linda Euceda Primary Care Provider [phone] Encounter Details Date Type Department Care Team (Late st Contact Info) Description 02/05/2022 Merlin Diamonds Message Enc [facility] Family & Internal Medicine [facility] [id number] [place] [phone] [facility] Provider Pap smear Social History Tobacco Use [...] on file Legal Sex Female 5:38 PM FIRM ADMINISTRATOR Gender Identity Not on file Sexual Orientation Not on file documented as of this encounter Plan of Treatment Not on file documented as of this encounter Visit Diagnoses Not on filedocumented in this encounter Additional Health Concerns Assessment Noted Time PHQ-9 Depression Total Score: 8 04/21/19 22 4:17 PM FIRM ADMINISTRATOR documented as of this encounter Care Teams Duty Engineer Relationship Specialty [place] [address] [place] [address] PCP - General PHYSICIAN CREATIVE ART THERAPIST 04/08/21 documented as of this encounter
--- OUTSIDE RECORDS SUMMARY | 2024-10-19 12:31 | XMS_ITS | Encounter Summary ---
Author Organization [facility] Address [address] [place] [address] Phone Care Team Providers Care Filter Tank Tender Helper Name Role Phone Cheikh cAkerman MD Primary Care Prov ider Pepe Nicole MD Unavailable [phone] Francisco Javier Uriostegui MD Unavailable Encounter [...] on file Legal Sex Female 11:58 PM GROUTMAN Gender Identity Female 04/03/2018 2:53 PM GROUTMAN Sexual Orientation Not on file documented as of this encounter Plan of Treatment Not on file documented as of this encounter Procedures Procedure Name Priority Date/Time Associated Diagnosis Comments SCAN - LABS 01/13/2021 documented in this encounter Results * SCAN - LABS (01/13/2021) us Provider Scanning Final Result documented in this encounter Visit Diagnoses Not on filedocumented in this encounter Care Teams Filter Tank Tender Helper Relationship Specialty Start Date End Date Cheikh Ackerman MD [address] [place] [address] PCP - General 06/11/16 Pepe Nicole MD [address] [place] [address] Referring Physician Nephrology 04/24/20 Francisco Javier Uriostegui MD [address] [place] [address] Consulting Physician Cardiology 11/22/22 documented as of this encounter
--- OUTSIDE RECORDS SUMMARY | 2024-10-19 12:31 | XMS_ITS | Encounter Summary ---
Author Organization [facility] Address [address] [place] [address] Phone Care Team Providers Care Platform Material Handling Supervisor Name Role Phone Cheikh Ackerman MD Primary Care Prov ider Pepe Nicole MD Unavailable [phone] Francisco Javier Uriostegui MD Unavailable Encounter Details Date Type Department Care Team (Latest Contact Info) Description 07/19/2024 Orders Only [facility] Scanning, Provider Social History Tobacco Use Types [...] on file Legal Sex Female 11:58 PM FAMILY PRACTICE PHYSICIAN Gender Identity Female 04/03/2018 2:53 PM FAMILY PRACTICE PHYSICIAN Sexual Orientation Not on file documented as of this encounter Plan of Treatment Not on file documented as of this encounter Procedures Procedure Name Priority Date/Time Associated Diagnosis Comments PULMONARY - RESULT SCAN 07/19/2024 documented in this encounter Results * PULMONARY - RESULT SCAN (07/19/2024) Anatomical Region Laterality Modality Other us Provider Scanning Final Result documented in this encounter Visit Diagnoses Not on filedocumented in this encounter Care Teams Platform Material Handling Supervisor Relationship Specialty Start Date End Date Cheikh Ackerman MD [address] [place] [address] PCP - General 06/11/16 Pepe Nicole MD [address] [facility] [address] [place] [address] Referring Physician Nephrology 04/24/20 Francisco Javier Uriostegui MD [address] [place] [address] Consulting Physician Cardiology 11/22/22 documented as of this encounter
--- OUTSIDE RECORDS SUMMARY | 2024-10-19 12:31 | XMS_ITS | Encounter Summary ---
Author Organization [facility] Facility Care Team Providers Care Manager Wealth Management Name Role Phone Cheikh Ackerman MD Primary Care Prov ider Cheikh Ackerman MD Primary Care Prov ider Cheikh Ackerman MD Primary Care Prov ider Pepe Nicole MD Unavailable [phone] Francisco Javier Uriostegui MD Unavailable Encounter Details Date Type Department Care Team (Latest Contact Info) Description 03/12/2016 Orders Only [facility] ProviderYohan MD [address] [place], [place] [id number] Social History Tobacco Use Types Packs/Day Years Used Date Smoking Tobacco: Never Assessed Comments Unknown Sex and Gender Information Value Date Recorded Sex Assigned at Not on file Legal Sex Female 11:58 PM CHLORINATOR Gender Identity Female 04/03/2018 2:53 PM CHLORINATOR Sexual Orientation Not on file documented as of this encounter Plan of Treatment Not on file documented as of this encounter Procedures Procedure Name Priority Date/Time Associated Diagnosis Comments SCAN - LABS 04/06/2016 12:00 AM CHLORINATOR SCAN - PATHOLOGY 03/12/2016 12:0 0 AM CHLORINATOR documented in this encounter Results * SCAN - LABS (04/06/2016 12:00 AM CHLORINATOR) Narrative 04/06/2016 12:00 AM CHLORINATOR Ordered by an unspecified provider. Historical Provider Final Res ult * SCAN - PATHOLOGY (03/12/2016 12:00 AM CHLORINATOR) Narrative 03/12/2016 12:00 AM CHLORINATOR Ordered by an unspecified provider. Historical Provider Final Res ult documented in this encounter Visit Diagnoses Not on filedocumented in this encounter Care Teams Manager Wealth Management Relationship Specialty Start Date End Date Cheikh Ackerman MD [address] [place] [address] PCP - General 06/11/16 Cheikh Ackerman MD [address] [place] [address] PCP - General 05/04/16 06/10/16 Cheikh Ackerman MD [address] [place] [address] PCP - General 04/25/06 05/03/16 Pepe Nicole MD [address] [place] [address] Referring Physician Nephrology 04/24/20 Francisco Javier Uriostegui MD [address] [place] [address] Consulting Physician Cardiology 11/22/22 documented as of this encounter
--- OUTSIDE RECORDS SUMMARY | 2024-10-19 12:31 | XMS_ITS | Encounter Summary ---
Author Organization [facility] Facility Care Team Providers Care Gin Clerk Name Role Phone Cheikh Ackerman MD Primary Care Prov ider Cheikh Ackerman MD Primary Care Prov ider Cheikh Ackerman MD Primary Care Prov ider Pepe Nicole MD Unavailable Francisco Javier Uriostegui MD Unavailable Encounter Details Date Type Department Care Team (Latest Contact Info) Description 03/04/2016 Orders Only [facility] ProviderYohan MD [address] [place] [address] Social History Tobacco Use Types Packs/Day Years Used Date Smoking Tobacco: Never Assessed Comments Unknown Sex and Gender Information Value Date Recorded Sex Assigned at Not on file Legal Sex Female 11:58 PM BELL ATTENDANT Gender Identity Female 04/03/2018 2:53 PM BELL ATTENDANT Sexual Orientation Not on file documented as of this encounter Plan of Treatment Not on file documented as of this encounter Procedures Procedure Name Priority Date/Time Associated Diagnosis Comments SCAN - LABS 03/04/2016 12:00 AM BELL ATTENDANT documented in this encounter Results * SCAN - LABS (03/04/2016 12:00 AM BELL ATTENDANT) Narrative 03/04/2016 12:00 AM BELL ATTENDANT Ordered by an unspecified provider. us Historical Provider Final Res ult documented in this encounter Visit Diagnoses Not on filedocumented in this encounter Care Teams Gin Clerk Relationship Specialty Start Date End Date Cheikh Ackerman MD [address] [place] [address] PCP - General 06/11/16 Cheikh Ackerman MD [address] [place] [address] PCP - General 05/04/16 06/10/16 Cheikh Ackerman MD [address] [place] [address] PCP - General 04/25/06 05/03/16 Pepe Nicole MD [address] [place] [address] Referring Physician Nephrology 04/24/20 Francisco Javier Uriostegui MD [address] [facility] [address] [place] [address] Consulting Physician Cardiology 11/22/22 documented as of this encounter
--- OUTSIDE RECORDS SUMMARY | 2024-10-19 12:31 | XMS_ITS | Clinical Summary ---
Author Organization [facility] Address [address] [place] [address] Care Team Providers Care Parasitology Teacher Name Role Phone Vanessa Cardoso MD Primary Care Provider [phone] Source Comments [facility],non-owned Affiliates and Associated Physician Practices is amultiple site organization consisting of ambulatory clinics and hospital sitesin [place], [place], [place] and [place]. This disclosure is being madepursuant to the Care Everywhere program and may not contain all information available regarding this patient. Last updated 17.[facility] Social History Tobacco Use Types Packs/Day Years Used Date Smoking Tobacco: Never Assessed Comments Unknown Sex and Gender Information Value Date Recorded Sex Assigned at Not on file Legal Sex Female 5:40 AM PARISH NURSE Gender Identity Not on file Sexual Orientation [...] PAP SMEAR 04/21/2024 04/21/2021, 04/21/2021 INFLUENZA VACCINE (#1) 2024 LIPID TESTING 08/09/2028 08/10/2023 Respiratory Syncytial [...] SIDHU Subscriber ID:Not on file (Home) Address: [address] [place] [address] Payer ID:Not on file Group ID:Not on file Type:Self Pay Address: [place], [place] Care Teams Parasitology Teacher Relationship Specialty Start Date End Date Vanessa Cardoso MD [address] [place] [address] PCP - General 01/09/21
--- OUTSIDE RECORDS SUMMARY | 2024-10-19 12:31 | XMS_ITS | Continuity of Care Document ---
Author Organization [facility] Address [address] [place] [address] utive [facility] [address] [place] [address] Phone Care Team Providers Care Pai Gow Dealer Name Role Phone Brooke Amador Unavailable Unavailable Procedures Procedure Date Eye Exam, New Patient Advance Directives Directive Yes / No Effective Date File Name No Information Encounters Encounter Description Practice Location Reason(s) For Visit Diagnoses Date Provider Providers Copied on Encounter [facility], [address] [place] [address] [address], [place], [place], [id number], [place] tel:[phone] [facility] No Information 8-200 [address] Marjorie Cox. [address] , [address], [place], [address], [place]. tel:[phone] Family History Family Member Type Diagnosis Age [...]
--- OUTSIDE RECORDS SUMMARY | 2024-10-19 12:31 | XMS_ITS | Encounter Summary ---
Author Organization [facility] Address [address] [place] [address] Phone Care Team Providers Care Clothes Wringer Name Role Phone Cheikh Ackerman MD Primary Care Prov ider Pepe Nicole MD Unavailable [phone] Francisco Javier Uriostegui MD Unavailable Encounter [...] on file Legal Sex Female 11:58 PM BOAT FINISHER Gender Identity Female 04/03/2018 2:53 PM BOAT FINISHER Sexual Orientation Not on file documented as [...] on filedocumented in this encounter Care Teams Clothes Wringer Relationship Specialty Start Date End Date Cheikh Ackerman MD [address] [place] [address] PCP - General 06/11/16 Pepe Nicole MD [address] [place] [address] Referring Physician Nephrology 04/24/20 Francisco Javier Uriostegui MD [address] [place] [address] Consulting Physician Cardiology 11/22/22 documented as of this encounter
--- OUTSIDE RECORDS SUMMARY | 2024-10-19 12:31 | XMS_ITS | Encounter Summary ---
Author Organization [facility] Care Team Providers Care Credit Reporter Name Role Phone Cheikh Ackerman MD Primary Care Prov ider Cheikh Ackerman MD Primary Care Prov ider Cheikh Ackerman MD Primary Care Prov ider Pepe Nicole MD Unavailable [phone] Francisco Javier Uriostegui MD Unavailable Encounter Details Date Type Department Care Team (Latest Contact Info) Description 02/26/2016 Orders Only [facility] ProviderYohan MD [address] [place] [address] Social History Tobacco Use Types Packs/Day Years Used Date Smoking Tobacco: Never Assessed Comments Unknown Sex and Gender Information Value Date Recorded Sex Assigned at Not on file Legal Sex Female 11:58 PM COMPOSITION STONE APPLICATOR Gender Identity Female 04/03/2018 2:53 PM COMPOSITION STONE APPLICATOR Sexual Orientation Not on file documented as of this encounter Plan of Treatment Not on file documented as of this encounter Procedures Procedure Name Priority Date/Time Associated Diagnosis Comments PROCEDURE - RESULT 02/26/2016 12 :00 AM COMPOSITION STONE APPLICATOR documented in this encounter Results * PROCEDURE - RESULT (02/26/2016 12:00 AM COMPOSITION STONE APPLICATOR) Narrative 02/26/2016 12:00 AM COMPOSITION STONE APPLICATOR Ordered by an unspecified provider. us Historical Provider Final Res ult documented in this encounter Visit Diagnoses Not on filedocumented in this encounter Care Teams Credit Reporter Relationship Specialty Start Date End Date Cheikh Ackerman MD [address] [place] [address] PCP - General 06/11/16 Cheikh Ackerman MD [address] [place] [address] PCP - General 05/04/16 06/10/16 Cheikh Ackerman MD [address] [place] [address] PCP - General 04/25/06 05/03/16 Pepe Nicole MD [address] [place] [address] Referring Physician Nephrology 04/24/20 Francisco Javier Uriostegui MD [address] [facility] [address] [place] [address] Consulting Physician Cardiology 11/22/22 documented as of this encounter
--- OUTSIDE RECORDS SUMMARY | 2024-10-19 12:31 | XMS_ITS | Encounter Summary ---
Author Organization [facility] Address [address] [place] [address] Phone Care Team Providers Care Program Aide Name Role Phone Cheikh Ackerman MD Primary Care Prov ider Pepe Nicole MD Unavailable [phone] Francisco Javier Uriostegui MD Unavailable Encounter [...] on file Legal Sex Female 11:58 PM CAGE UNLOADER Gender Identity Female 04/03/2018 2:53 PM CAGE UNLOADER Sexual Orientation Not on file documented as [...] on filedocumented in this encounter Care Teams Program Aide Relationship Specialty Start Date End Date Cheikh Ackerman MD [address] [place] [address] PCP - General 06/11/16 Pepe Nicole MD [address] [place] [address] Referring Physician Nephrology 04/24/20 Francisco Javier Uriostegui MD [address] [facility] [address] [place] [address] Consulting Physician Cardiology 11/22/22 documented as of this encounter
--- OUTSIDE RECORDS SUMMARY | 2024-10-19 12:31 | XMS_ITS | Clinical Summary ---
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 incidents 08/05/2023 BOOP (bronchiolitis [...] on prednisone - advised to contact her ice cream scooper to discuss her blood pressure and edema [...] Encounters Date Type Department Care Team Description 07/19/2024 Orders Only [facility] Scanning, Provider from Last 3 Months Medical History Medical [...] on file Legal Sex Female 11:58 PM AUTO PHONE INSTALLER Gender Identity Female 04/03/2018 2:53 PM AUTO PHONE INSTALLER Sexual Orientation Not on file Obstetrics History Last Filed Vital Signs Vital Sign Reading Time Taken Comments Blood Pressure 117/70 05/18/2024 1:18 PM AUTO PHONE INSTALLER Pulse 93 05/18/2024 1:18 PM AUTO PHONE INSTALLER Temperature 36.6 C (97.8 F) 05/01/2024 1:26 PM AUTO PHONE INSTALLER Respiratory Rate 20 10/05/2023 10:52 AM CDT Oxygen Saturation 97% 05/01/2024 1:26 PM AUTO PHONE INSTALLER Inhaled Oxygen Concentration - - Weight 85.7 kg (189 lb) 05/18/2024 1:18 PM AUTO PHONE INSTALLER Height 165.1 cm (5' 5) 05/18/2024 1:18 PM AUTO PHONE INSTALLER Body Mass Index 31.45 05/18/2024 1:18 PM AUTO PHONE INSTALLER Plan of Treatment Health Maintenance Due Date [...] 2023 04/29/2020, 04/01/2020 Hemoglobin A1C 04/26/2024 10/25/2023, 03/2 , 11/03/2022, Additional history exists Lipid Panel 08/09/2024 08/10/2023, 03/08/2022, 04/16/2020, Additional history exists Influenza Vaccine (#1) 2024 10/31/2015, 2015 eGFR 03/12/2025 03/12/2024, 11/0 10/2023, 10/05/2023, Additional history exists Procedures Procedure Name Priority Date/Time Associated Diagnosis Comments PULMONARY - RESULT SCAN 07/19/2024 EGFR Routine 03/12/2024 11:25 AM AUTO PHONE INSTALLER CKD (chronic kidney disease) stage 4, GFR 15-29 ml/min (HCC) Vitamin D deficiency Proteinuria, unspecified type POCT HEMOGLOBIN A1C Routine 10/25/2023 9 :17 AM CDT Type 2 diabetes mellitus without complication, with long-term current use of insulin (HCC) POCT LIPID PANEL Routine 08/10/2023 2:56 PM CDT Lipid screening from Last 3 Months or Most Recently Relevant to Health Maintenance Results * PULMONARY - RESULT SCAN (07/19/2024) Anatomical Region Laterality Modality Other us Provider Scanning Final Result * (ABNORMAL) eGFR (03/12/2024 11:25 AM AUTO PHONE INSTALLER) eGFR 35(L) >=60 mL/min/1. 73 m2 Comment: [...] reviewed 2021. Blood 03/12/2024 11:2 5 AM AUTO PHONE INSTALLER 03/12/2024 8:18 PM AUTO PHONE INSTALLER us Brittnee Blackwell MD LAB BLOOD ORDERABLES Fi nal Result ALICE [address] [place] [address] * POCT hemoglobin A1c (10/25/2023 [...] Relevant to Health Maintenance Insurance [facility] ACCESS CHOICE ANTHEM ACCESS CHOICE Care Teams Candy Catcher Relationship Specialty Start Date End Date Cheikh Ackerman MD [address] [place] [address] PCP - General 06/11/16 Pepe Nicole MD [address] [place] [address] Referring Physician Nephrology 04/24/20 Francisco Javier Uriostegui MD [address] [facility] [address] [place] [address] Consulting Physician Cardiology 11/22/22
--- OUTSIDE RECORDS SUMMARY | 2024-10-19 12:31 | XMS_ITS | Encounter Summary ---
Author Organization [facility] Address [address] [address] Care Team Providers Care Budget Officer Name Role Phone Cheikh Ackerman MD Primary Care Prov ider Cheikh Ackerman MD Primary Care Prov ider Cheikh Ackerman MD Primary Care Prov ider Pepe Nicole MD Unavailable [phone] Francisco Javier Uriostegui MD Unavailable Encounter Details Date Type Department Care Team (Late st Contact Info) Description 10/08/2015 Orders Only [facility] Provider, MD Yohan [address] [place] [address] Social History Tobacco Use Types Packs/Day Years Used Date Smoking Tobacco: Never Assessed Comments Unknown Sex and Gender Information Value Date Recorded Sex Assigned at Not on file Legal Sex Female 11:58 PM DATASTAGE ARCHITECT Gender Identity Female 04/03/2018 2:53 PM DATASTAGE ARCHITECT Sexual Orientation Not on file documented as [...] on filedocumented in this encounter Care Teams Budget Officer Relationship Specialty Start Date End Date Cheikh Ackerman MD [address] [place] [address] PCP - General 06/11/16 Cheikh Ackerman MD [address] [place] [address] PCP - General 05/04/16 06/10/16 Cheikh Ackerman MD [address] [place] [address] PCP - General 04/25/06 05/03/16 [place] [address] [place] [address] [address] [place] [address] Referring Physician Nephrology 04/24/20 Francisco Javier Uriostegui MD [address] [facility] [address] [facility] [address] [place] [address] Consulting Physician Cardiology 11/22/22 documented as of this encounter
--- OUTSIDE RECORDS SUMMARY | 2024-10-19 12:31 | XMS_ITS | Encounter Summary ---
Author Organization [facility] Facility Care Team Providers Care Carburetor Repairer Name Role Phone Cheikh Ackerman MD Primary Care Prov ider Cheikh Ackerman MD Primary Care Prov ider Cheikh Ackerman MD Primary Care Prov ider Pepe Nicole MD Unavailable [phone] Francisco Javier Uriostegui MD Unavailable Encounter Details Date Type Department Care Team (Latest Contact Info) Description 02/11/2016 Orders Only [facility]IN[facility] ProviderYohan MD [address] [place] [address] Social History Tobacco Use Types Packs/Day Years Used Date Smoking Tobacco: Never Assessed Comments Unknown Sex and Gender Information Value Date Recorded Sex Assigned at Not on file Legal Sex Female 11:58 PM ENVIRONMENT COORDINATOR Gender Identity Female 04/03/2018 2:53 PM ENVIRONMENT COORDINATOR Sexual Orientation Not on file documented as of this encounter Plan of Treatment Not on file documented as of this encounter Procedures Procedure Name Priority Date/Time Associated Diagnosis Comments PROCEDURE - RESULT 02/11/2016 12 :00 AM ENVIRONMENT COORDINATOR documented in this encounter Results * PROCEDURE - RESULT (02/11/2016 12:00 AM ENVIRONMENT COORDINATOR) Narrative 02/11/2016 12:00 AM ENVIRONMENT COORDINATOR Ordered by an unspecified provider. us Historical Provider Final Res ult documented in this encounter Visit Diagnoses Not on filedocumented in this encounter Care Teams Carburetor Repairer Relationship Specialty Start Date End Date Cheikh Ackerman MD [address] [place] [address] PCP - General 06/11/16 Cheikh Ackerman MD [address] [place] [address] PCP - General 05/04/16 06/10/16 Cheikh Ackerman MD [address] [place] [address] PCP - General 04/25/06 05/03/16 Pepe Nicole MD [address] [place] [address] Referring Physician Nephrology 04/24/20 Francisco Javier Uriostegui MD [address] [facility] [address] [place] [address] Consulting Physician Cardiology 11/22/22 documented as of this encounter
--- OUTSIDE RECORDS SUMMARY | 2024-10-19 12:31 | XMS_ITS | Clinical Summary ---
Author Organization [facility] Address [address] [place] [address] Care Team Providers Care Ux Architect Name Role Phone David Euceda Primary Care Provider [phone] Allergies Active Allergy Reactions Criticality Noted Date [...] on file Legal Sex Female 5:38 PM FREIGHT LOADING SUPERVISOR Gender Identity Not on file Sexual Orientation Not on file Last Filed Vital Signs Vital Sign Reading Time Taken Comments Blood Pressure 152/90 04/21/2021 4:02 PM FREIGHT LOADING SUPERVISOR Pulse 78 04/21/2021 4:02 PM FREIGHT LOADING SUPERVISOR Temperature 37.1 C (98.7 F) 04/21/2021 4:02 PM FREIGHT LOADING SUPERVISOR Respiratory Rate 18 04/21/2021 4:02 PM FREIGHT LOADING SUPERVISOR Oxygen Saturation 98% 04/21/2021 4:02 PM FREIGHT LOADING SUPERVISOR Inhaled Oxygen Concentration - - Weight 91.2 kg (201 lb) 04/21/2021 4:02 PM FREIGHT LOADING SUPERVISOR Height 165.1 cm (5' 5) 04/21/2021 4:02 PM FREIGHT LOADING SUPERVISOR Body Mass Index 33.45 04/21/2021 4:02 PM FREIGHT LOADING SUPERVISOR Plan of Treatment Health Maintenance Due [...] PAPILLOMAVIRUS, HIGH-RISK TYPES Routine 04/21/2021 12:00 PM FREIGHT LOADING SUPERVISOR CYTOPATH CERV/VAG THIN LAYER Routine 04/21/2021 8:03 AM FREIGHT LOADING SUPERVISOR from Last 3 Months or Most Recently Relevant to Health Maintenance Results * HUMAN PAPILLOMAVIRUS, HIGH-RISK TYPES (04/21/2021 12:00 PM FREIGHT LOADING SUPERVISOR) SPEC DESCRIPTION CERVICAL/END OCERVICAL 04/23/2021 9:25 AM FREIGHT LOADING SUPERVISOR [facility] HPV DNA HIGH RISK NEGATIVE NEGATIVE 04/24/2021 11:54 AM FREIGHT LOADING SUPERVISOR [facility] Comment:SEE CYTOLOGY REPORT 04/21/2021 12:0 0 PM FREIGHT LOADING SUPERVISOR David GÓMEZ PATHOLOGY/CYTOLOGY ORDERABLE S Final Result [facility] [address] [place] [address], * Cytopath Cerv/Vag Thin Layer (04/21/2021 8:03 AM FREIGHT LOADING SUPERVISOR) THIN PREP PAP [facility] [address] [place] [address] Department of Pathology Pathology Report CERVICAL/VAGINAL PAP SMEAR REPORT Name: ROSANNE SIDHU Age: 2 1965 (Age: 55) Location: [facility] Sex: F Collected Date: 04/21/2021 [facility] #: [id number] Date Received: 04/23/2021 Date Reported: 04/28/2021 Provider: [...] is not effective in detecting cervical adenocarcinoma. [facility] 04/21/2021 8:03 AM FREIGHT LOADING SUPERVISOR 04/23/2021 8:03 AM FREIGHT LOADING SUPERVISOR Comment:CERVICAL/ENDOCERVICA L us David GÓMEZ PATHOLOGY/CYTOLOGY ORDERABLE S Final Result [facility] [address] [place] [address], from Last 3 Months or Most Recently Relevant to Health Maintenance Insurance [facility] Care Teams Ux Architect Relationship Specialty [place] [address] [place] [address] PCP - General PHYSICIAN FIRE INFORMATION OFFICER 04/08/21
[2024-10-19 13:36] LABS: Hematocrit 30.3 % (37.0-47.0); Hemoglobin 9.1 g/dL (12.0-15.0); Mean Corpuscular HGB Conc 30.0 g/dl (32-36); Mean Corpuscular Hemoglobin 25.8 pg (26-34); Mean Corpuscular Volume 85.8 fl (80-100); Platelet Count Result 251 k/mm3 (150-375); Red Blood Count 3.53 M/mm3 (4.2-5.4); White Blood Count 5.8 K/mm3 (4.5-10.0)
[2024-10-19 13:57] LABS: Iron 28 ug/dL (37-170)
[2024-10-19 13:59] LABS: Alanine Aminotransferase 7 U/L (6-35); Albumin Level 3.2 g/dL (3.5-5.1); Alkaline Phosphatase 58 U/L (38-126); Anion Gap 11 mmol/L (4-12); Aspartate Amino Transferase 14 U/L (14-36); Bilirubin,Total 0.3 mg/dL (0.2-1.3); Blood Urea Nitrogen 36 mg/dL (7-17); Calcium 8.6 mg/dL (8.4-10.2); Carbon Dioxide 14 mmol/L (22-30); Chloride 113 mmol/L (98-107); Estimated Glomerular Filt Rate 22; Glucose 106 mg/dL (65-110); Potassium 4.8 mmol/L (3.4-5.0); Sodium 138 mmol/L (137-145); Total Protein 5.4 g/dL (6.3-8.2)
[2024-10-19 14:07] LABS: Percent Iron Saturation 14 % (20-50)
[2024-10-19 14:36] LABS: Thyroid Stimulating Hormone 2.140 uIU/mL (0.465-4.680)
[2024-10-19 14:39] LABS: Ferritin 331.00 ng/mL (11.1-264)
[2024-10-19 15:11] LABS: Vitamin B12 282.0 pg/mL (239-931)
== END 2024-10-19 12:28 | disposition home or self-care (01) ==
LOC: ANHLAB 12:29
PROVIDERS: PCP Family Medicine Adolescent Medicine; Visit Provider Family Medicine Adolescent Medicine
DX: I12.9 Hypertensive chronic kidney disease with stage 1 through stage 4 chronic kidney disease, or unspecified chronic kidney disease (principal); N18.30 Chronic kidney disease, stage 3 unspecified; D63.1 Anemia in chronic kidney disease; E78.00 Pure hypercholesterolemia, unspecified; E03.9 Hypothyroidism, unspecified; R53.83 Other fatigue
CPT/HCPCS: 36415; 80053; 82607; 82668; 82728; 82746; 83540; 83550; 84443; 85027

== ENCOUNTER 2024-12-07 22:30 | Inpatient (IN) | payer OTHER, SELFPAY ==
--- OUTSIDE RECORDS SUMMARY | 2007-09-19 11:09 | XMS_ITS | Continuity of Care Document ---
Author Organization [facility] Address [address] [place] [address] utive [facility] [address] [place] [address] Phone Care Team Providers Care Consumer Relations Specialist Name Role Phone Brooke Amador Unavailable Unavailable Procedures Procedure Date Eye Exam, New Patient Advance Directives Directive Yes / No Effective Date File Name No Information Encounters Encounter Description Practice Location Reason(s) For Visit Diagnoses Date Provider Providers Copied on Encounter [facility], [address] [place] [address] [address], [place], [place], [id number], [place] tel:[phone] [facility] No Information 8-200 [address] Marjorie Cox. [address] , [address], [place], [address], [place]. tel:[phone] Family History Family Member Type Diagnosis Age At Onset No Information Payers Payer name Insurance type Covered green party ID Authoriza tion(s) No Information Social History Type Description Quantity Date Captured Comments Sex Female Smoking Status No Information Chief Complaint And Reason For Visit No Information Reason For Referral Reason For Referral No Information History Of Present Illness Encounter Date Complaint History Of Prese nt Illness No Information Functional Status Date Functional Assessmen t No Information Instructions Date Instruction Additional Infor mation No Information Assessments Type Assessment Date No Information Patient Care Teams Name Effective Dates (start - stop) Status Members No Information
--- NOTE | ~2024-12-07 | NM_ITS ---
EXAMINATION: NM abdoulaye stress w perfusion DATE: 12/12/2024 13:27 INDICATION: Myocardial infarction. Congestive heart failure. TECHNIQUE: Rest images were obtained following intravenous administration of 10.6 mCi Tc99m tetrofosmin (Myoview). The patient was infused intravenously with Lexiscan (regadenoson). Then, 33.7 mCi Tc99m tetrofosmin (Myoview) was administered intravenously, and stress images were obtained. Data was caleb nstructed into short axis and horizontal and vertical long axis SPECT images. Gated SPECT images were also obtained. COMPARISON: Chest CT 12/19/2020 FINDINGS: There is a large distribution of severe, fixed perfusion defect involving the apical to mid anterior segments, apical lateral segment, mid anterolateral and mid inferolateral segments, and inferior apical to mid segments of left ventricle, consistent with infarct. No reversible component to suggest ischemia. There is global hypokinesis.. Left ventricular ejection fraction measures 30%. IMPRESSION: 1. Large distribution of severe infarct involving the apical to mid anterior segments, apical lateral segment, mid anterolateral and mid inferolateral segments, and inferior apical to mid segments of left ventricle 2. Global hypokinesis left ventricular ejection fraction measuring 30%. Reviewed, dictated and finalized at location E. IMPRESSION: 1. Large distribution of severe infarct involving the apical to mid anterior se gments, apical lateral segment, mid anterolateral and mid inferolateral segment s, and inferior apical to mid segments of left ventricle 2. Global hypokinesis left ventricular ejection fraction measuring 30%.
--- NOTE | ~2024-12-07 | XR_ITS ---
Examination: XR chest 2V Clinical History: dyspnea Comparison: 09/08/2021 Technique: PA and Lateral Findings: Cardiomediastinal silhouette normal size and configuration. Hazy bibasilar opacities. Small left pleural effusion. No acute bony abnormality. IMPRESSION: 1. Bibasilar atelectasis and/or airspace disease, with small left pleural effusion. Reviewed, dictated and finalized at location R. IMPRESSION: 1. Bibasilar atelectasis and/or airspace disease, with small left pleural effu beverly.
--- NOTE | 2024-12-07 22:33 | ECG_ITS ---
Test Date: 2024-12-07 22:41:33 Measurements Intervals [place] Rate: 112 P: 55 RI: 137 QRS: -44 QRSD: 90 T: 108 QT: 318 QTc: 435 Interpretive Statements SINUS TACHYCARDIA POSSIBLE LEFT ATRIAL ENLARGEMENT [-0.1mV P-WAVE IN V1/V2] LEFT AXIS DEVIATION [QRS AXIS < -30] ANTEROSEPTAL MYOCARDIAL INFARCTION , OF INDETERMINATE AGE [40+ ms Q WAVE IN V1-V4] Compared to ECG 05/19/2024 18:10:51 Myocardial infarct finding now present Sinus rhythm no longer present Short RI interval no longer present Left ventricular hypertrophy no longer present ST (T wave) deviation no longer present Electronically Signed On 12-08-2024 00:36:07 CDT by Bambi Remy M.D.
[2024-12-07 22:39] VITALS: BP 140/76; PULSE 116; RESP 20; TEMP 37.8; O2SAT 99
[2024-12-07 22:53] LABS: Hematocrit 25.6 % (37.0-47.0); Hemoglobin 7.6 g/dL (12.0-15.0); Immature Granulocyte Percent A 0.9 % (0-0.5); Lymphocytes Absolute Auto 1.09 K/mm3 (0.9-3.2); Mean Corpuscular HGB Conc 29.7 g/dl (32-36); Mean Corpuscular Hemoglobin 24.9 pg (26-34); Mean Corpuscular Volume 83.9 fl (80-100); Nucleated Red Blood Cells Absolute Auto 0.000 K/mm3 (0.0-0.012); Nucleated Red Blood Cells Perc 0.0 % (0.0-0.2); Platelet Count Result 315 k/mm3 (150-375); Red Blood Count 3.05 M/mm3 (4.2-5.4); White Blood Count 6.7 K/mm3 (4.5-10.0)
[2024-12-07 23:06] LABS: Alanine Aminotransferase 10 U/L (6-35); Albumin Level 3.2 g/dL (3.5-5.1); Alkaline Phosphatase 64 U/L (38-126); Anion Gap 10 mmol/L (4-12); Aspartate Amino Transferase 15 U/L (14-36); Bilirubin,Total 0.3 mg/dL (0.2-1.3); Blood Urea Nitrogen 38 mg/dL (7-17); Calcium 8.2 mg/dL (8.4-10.2); Carbon Dioxide 17 mmol/L (22-30); Chloride 110 mmol/L (98-107); Estimated CRCL calculation 21 ml/min; Estimated Glomerular Filt Rate 19; Glucose 114 mg/dL (65-110); Potassium 4.6 mmol/L (3.4-5.0); Sodium 137 mmol/L (137-145); Total Protein 5.5 g/dL (6.3-8.2)
[2024-12-07 23:11] LABS: Anisocytosis 1+; Hypochromasia 1+; Microcytosis 1+ (NORMAL); Ovalocytes Occasional; Schistocytes None Seen
[2024-12-07 23:21] LABS: NT Pro B Type Natriuretic Pept > 30000 pg/mL (19.9-100); Troponin I 0.876 ng/mL (0.000-0.034)
[2024-12-07 23:38] VITALS: PULSE 118; RESP 21; O2SAT 100
[2024-12-07 23:39] VITALS: BP 138/78; PULSE 115; RESP 22; O2SAT 100
[2024-12-07 23:45] VITALS: PULSE 114; RESP 21
[2024-12-07 23:46] VITALS: BP 139/76; PULSE 113; RESP 22; O2SAT 100
[2024-12-08] VITALS (39 sets, daily range): BP systolic 112–135; BP diastolic 56–80; PULSE 90–121; RESP 16–35; TEMP 36.8–37.2; O2SAT 89–100; BMI 29.8
[2024-12-08] MEDS: cefTRIAXone 1 GM in SODIUM CHLORIDE 0.9% IV 50 ML 100 ML IVPB (00:20)
--- NOTE | 2024-12-08 00:22 | ED.GENADULT ---
HPI - General Adult General Chief complaint: Shortness of Breath/Dyspnea Stated complaint: shortness of breath Time Seen by Provider: 12/07/24 23:22 History of Present Illness HPI narrative: Patient is a 5-year-old female who presents emergency department this evening complaining of worsening shortness of breath for the past week. Patient states that his the shortness of breath is worse with any activities of daily living and exertion. She saw her PCP/transportation logistics internship 1 week ago and was told that she has a low hemoglobin secondary to iron deficiency. She has a scheduled outpatient blood transfusion and iron infusion in 3 days on Tuesday. Patient is also complaining of dysuria. Denies any active chest pain. Admits to history of CHF but states that she was taken off of her Lasix a while back due to her kidney function. Admits that she has been having worsening lower extremity edema. Otherwise denies any additional symptoms or concerns at this time. Related Data Home Medications ?Medication ?Instructions ?Recorded ?Confirmed ?Last Taken ?Type clopidogrel 75 mg tablet 75 mg PO DAILY 08/01/19 10/19/24 05/19/24 History subcutaneous insulin pump (MiniMed #1 ea 08/03/19 10/19/24 Unknown History 630G Insulin Pump) cholecalciferol (vitamin D3) 25 25 mcg PO DAILY 07/22/22 10/19/24 05/13/24 History mcg (1,000 unit) tablet (Vitamin D3) ferrous sulfate 325 mg (65 mg 325 mg PO DAILY 07/22/22 10/19/24 05/19/24 History iron) tablet (FeroSul) metoprolol succinate 50 mg 50 mg PO DAILY 10/13/22 10/19/24 05/19/24 History tablet,extended release 24 hr blood-glucose transmitter (Dexcom 01/29/23 10/19/24 Unknown History G6 Transmitter device) nystatin 100,000 unit/gram topical 1 applic topical QID 05/20/24 10/19/24 05/09/24 History powder (Klayesta) Allergies Allergy/AdvReac Type Severity Reaction Status Date / Time levofloxacin (From Levaquin) Allergy Severe Swelling Verified 12/07/24 22:54 of Lip/Tongue/Throat itraconazole AdvReac Mild Itching Verified 12/07/24 22:54 Lamisil AdvReac Mild Other Uncoded 10/19/24 12:55 Review of Systems Review of Systems: All systems are reviewed and are negative unless stated otherwise in the HPI. [facility] Past Medical History Medical History History of [place] (myocardial infarction) Anemia Bilateral primary osteoarthritis of knee Coronary artery disease Depression Anxiety Insulin dependent type 2 diabetes mellitus Hyperlipidemia Chronic kidney disease, stage 3 Essential hypertension Surgical History Surgical History History of radial keratotomy History of coronary angioplasty History of section History of cardiac catheterization (2015) History of hip surgery (2019) ORIF right hip for IT fx Family History Family History Father Family history of heart disease in male family member before age 55 Family history of coronary artery disease Hypertension Grandparent Diabetes mellitus Cerebrovascular accident Mother Family history of heart disease in male family member before age 55 Family history of arthritis Endometrial cancer Social History Social History Social History: Surrogate medical decision maker: Louis May, spouse. Code status: Full code. Smoking status: Never smoker Second hand tobacco smoke exposure: No Alcohol intake: current Substance use: never Substance use type: does not use Do You Feel Safe in your Home?: Yes Lack of Transportation: No Lack of Food: Never True Current Housing: I Have Housing Concerned About Future Housing: No Difficulty Paying Gas/Electric Bills: No Difficulty Paying for Meds: No Currently Unemployed: No Education: Bachelor's Degree Difficulty w/ Childcare or Family Care: No Living arrangements: with family Additional living arrangements comments: Lives with in [place]. 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: No Agree to blood products: Yes Exam Narrative: General: Alert, awake, afebrile, in no acute distress. HEENT: PERRL, no rhinorrhea, no post nasal drip, oropharynx clear. Neck: Trachea midline, no JVD, no lymphadenopathy. Cardiovascular: Regular rate and rhythm, no murmurs, rubs or gallops, 3+ peripheral pitting edema. Respiratory: Clear to auscultation bilaterally, no tachypnea, no wheezing, no rhonchi, no rubs, no respiratory distress. Abdomen: Soft, nontender, nondistended, no rebound, no guarding, no peritoneal signs. Musculoskeletal: No joint swelling or deformity, normal muscle tone. Skin: No rashes or petechia, no signs of infection. Psychiatric: Alert and oriented, normal behavior and judgment for situation. Neurological: Alert and oriented to person, place, and time. Follows all commands. No focal deficits, speech is clear and fluent. Course Vital Signs Vital signs: Vital Signs Temperature 100.0 F H 12/07/24 22:39 Pulse Rate 116 H 12/07/24 22:39 Respiratory Rate 20 12/07/24 22:39 Blood Pressure 140/76 12/07/24 22:39 Pulse Oximetry 99 12/07/24 22:39 Oxygen Delivery Room Air 12/07/24 22:39 Temperature 100.0 F H 12/07/24 22:39 Pulse Rate 116 H 12/07/24 22:39 Respiratory Rate 20 12/07/24 22:39 Blood Pressure 140/76 12/07/24 22:39 Pulse Oximetry 99 12/07/24 22:39 Oxygen Delivery Room Air 12/07/24 22:39 Medical Decision Making MDM Narrative Medical decision making narrative: The patient was evaluated by myself in the emergency department. History is obtained from patient who is an independent historian and physical exam was performed. External medical records were reviewed at this time. IV was established and pertinent tests were ordered. Patient was administered 1g of IV Roceph and 500mg of IV Azithromycin to cover her for sepsis likely source lower respiratory tract. EKG was obtained which revealed sinus tachycardia rate of 112 beats per minute otherwise no evidence of arrhythmia or acute ischemia. EKG was independently interpreted by me and is currently pending official cardiology read. Laboratory results obtained revealing hemoglobin of 7.6 which patient is aware of, she does have a scheduled outpatient iron infusion and a blood transfusion on Tuesday in 3 days. BUN 38, creatinine 2.6 which is slightly higher than patient's baseline creatinine which is around 2, initial troponin elevated at 0.876, proBNP greater than 30,000 otherwise unremarkable. Urinalysis revealed nitrite positive UTI otherwise unremarkable. Viral swaps pending. Given the patient's symptomatic anemia, no heparin was started at this time. Also, patient's NSTEMI is likely secondary to her acute on chronic kidney disease/pneumonia/UTI likely type 2 NSTEMI. Imaging studies obtained included CXR which was independently interpreted by me revealing right perihilar opacities concerning for possible pneumonia, which is pending final radiology interpretation. Differential diagnosis considerations include sepsis secondary infectious process such as pneumonia/UTI, heart failure, fluid overload, acute coronary syndrome, acute viral syndrome. Comorbidities impacting this visit include history of heart failure, chronic kidney disease. I have evaluated and discussed social determinants of health with the patient that could potentially impact subsequent diagnosis and treatment plans. On repeat assessment of the patient, reevaluation revealed that the patient is doing well and is in no acute distress. Patient symptoms have improved since she arrived to our emergency department. Repeat vital signs were all reviewed and noted to be stable. Differential diagnosis and treatment plan were discussed with the patient at bedside. Patient agrees with discussion and after shared medical decision making agrees with admission. All questions were answered to the patient's satisfaction. Case was discussed with the on-call hospitalist Dr. Tello at 0015 who accepted admission. Critical care time of 57 minutes, exclusive of separately performed procedures, necessary for treating or preventing eminent or life-threatening deterioration of patient's condition of sepsis, NSTEMI, focused on patient care provided personally by me and time spent during initial evaluation, physical examination, ordering and performing treatments and interventions, ordering and reviewing laboratory studies, ordering and reviewing radiographic studies, re-evaluation of the patient's condition, evaluation of the patient's response to treatment, and discussion of patient case with multiple consultants. Vital Signs Vital Signs: Vital Signs Temperature 100.0 F H 12/07/24 22:39 Pulse Rate 116 H 12/07/24 22:39 Respiratory Rate 20 12/07/24 22:39 Blood Pressure 140/76 12/07/24 22:39 Pulse Oximetry 99 12/07/24 22:39 Oxygen Delivery Room Air 12/07/24 22:39 Temperature 100.0 F H 12/07/24 22:39 Pulse Rate 116 H 12/07/24 22:39 Respiratory Rate 20 12/07/24 22:39 Blood Pressure 140/76 12/07/24 22:39 Pulse Oximetry 99 12/07/24 22:39 Oxygen Delivery Room Air 12/07/24 22:39 Lab Data 12/07/24 22:48 12/07/24 22:48 Labs: Lab Results 12/07/24 12/07/24 12/08/24 Range/Units 22:48 23:58 00:18 WBC 6.7 (4.5-10.0) K/mm3 RBC 3.05 L (4.2-5.4) M/mm3 Hgb 7.6 L (12.0-15.0) g/dL Hct 25.6 L (37.0-47.0) % MCV 83.9 (80-100) fl MCH 24.9 L (26-34) pg MCHC 29.7 L (32-36) g/dl RDW 16.7 H (11.5-14.5) % Plt Count 315 (150-375) k/mm3 MPV 9.1 (7.4-10.4) fl Immature Gran % (Auto) 0.9 H (0-0.5) % Neut % (Auto) 73.8 H (45.5-73.1) % Lymph % (Auto) 16.3 L (18.3-44.2) % [place] % (Auto) 8.7 H (2.6-8.5) % Eos % (Auto) 0.0 (0-4.4) % Baso % (Auto) 0.3 (0.2-1.2) % Lymph # (Auto) 1.09 (0.9-3.2) K/mm3 [place] # (Auto) 0.6 (0.1-0.6) K/mm3 Eos # (Auto) 0.0 (0-0.3) K/mm3 Baso # (Auto) 0.0 (0.0-0.1) K/mm3 Abs Immat Gran (auto) 0.06 H (0.00-0.031) K/mm3 Absolute Neuts (auto) 4.9 (1.3-6.7) K/mm3 Absolute Nucleated RBC 0.000 (0.0-0.012) K/mm3 Band Neutrophils % Not Reportable Nucleated RBC % 0.0 (0.0-0.2) % Platelet Estimate Adequate (Adequate) Hypochromasia 1+ Anisocytosis 1+ Microcytosis 1+ (NORMAL) Ovalocytes Occasional Schistocytes None seen Sodium 137 (137-145) mmol/L Potassium 4.6 (3.4-5.0) mmol/L Chloride 110 H (98-107) mmol/L Carbon Dioxide 17 L (22-30) mmol/L Anion Gap 10 (4-12) mmol/L BUN 38 H (7-17) mg/dL Creatinine 2.63 H (0.7-1.0) mg/dL Estim Creat Clear Calc 21 ml/min Estimated GFR 19 L (59 - ) Glucose 114 H (65-110) mg/dL Lactic Acid 1.0 (0.7-2.0) mmol/L Calcium 8.2 L (8.4-10.2) mg/dL Total Bilirubin 0.3 (0.2-1.3) mg/dL AST 15 (14-36) U/L ALT 10 (6-35) U/L Alkaline Phosphatase 64 (38-126) U/L Troponin I 0.876 H* (0.000-0.034) ng/mL NT-Pro-B Natriuret Pep > 16692 H (19.9-100) pg/mL Total Protein 5.5 L (6.3-8.2) g/dL Albumin 3.2 L (3.5-5.1) g/dL Urine Color (Yellow) Urine Appearance (Clear) Urine pH (5.0-9.0) Ur Specific [place] (1.001-1.035) Urine Protein (Negative) mg/dL Urine Glucose (UA) (Negative) mg/dL Urine Ketones (Negative) mg/dL Ur Blood (Man) (Negative) Urine Nitrate (Negative) Urine Bilirubin (Negative) Urine Urobilinogen (<2.0) mg/dL Leukocyte Esterase Rfl (Negative) RUSS/UL Urine RBC (0-2) /hpf Urine WBC (0-3) /hpf Ur Squamous Epith Cells (Few) /hpf Urine Bacteria /hpf Urine Casts Influenza A (RT-PCR) Pending Influenza B (RT-PCR) Pending RSV (RT-PCR) Pending SARS-CoV-2 RNA (RT-PCR) Pending 12/08/24 Range/Units 00:36 WBC (4.5-10.0) K/mm3 RBC (4.2-5.4) M/mm3 Hgb (12.0-15.0) g/dL Hct (37.0-47.0) % MCV (80-100) fl MCH (26-34) pg MCHC (32-36) g/dl RDW (11.5-14.5) % Plt Count (150-375) k/mm3 MPV (7.4-10.4) fl Immature Gran % (Auto) (0-0.5) % Neut % (Auto) (45.5-73.1) % Lymph % (Auto) (18.3-44.2) % [place] % (Auto) (2.6-8.5) % Eos % (Auto) (0-4.4) % Baso % (Auto) (0.2-1.2) % Lymph # (Auto) (0.9-3.2) K/mm3 [place] # (Auto) (0.1-0.6) K/mm3 Eos # (Auto) (0-0.3) K/mm3 Baso # (Auto) (0.0-0.1) K/mm3 Abs Immat Gran (auto) (0.00-0.031) K/mm3 Absolute Neuts (auto) (1.3-6.7) K/mm3 Absolute Nucleated RBC (0.0-0.012) K/mm3 Band Neutrophils % Nucleated RBC % (0.0-0.2) % Platelet Estimate (Adequate) Hypochromasia Anisocytosis Microcytosis (NORMAL) Ovalocytes Schistocytes Sodium (137-145) mmol/L Potassium (3.4-5.0) mmol/L Chloride (98-107) mmol/L Carbon Dioxide (22-30) mmol/L Anion Gap (4-12) mmol/L BUN (7-17) mg/dL Creatinine (0.7-1.0) mg/dL Estim Creat Clear Calc ml/min Estimated GFR (59 - ) Glucose (65-110) mg/dL Lactic Acid (0.7-2.0) mmol/L Calcium (8.4-10.2) mg/dL Total Bilirubin (0.2-1.3) mg/dL AST (14-36) U/L ALT (6-35) U/L Alkaline Phosphatase (38-126) U/L Troponin I (0.000-0.034) ng/mL NT-Pro-B Natriuret Pep (19.9-100) pg/mL Total Protein (6.3-8.2) g/dL Albumin (3.5-5.1) g/dL Urine Color Yellow (Yellow) Urine Appearance Clear (Clear) Urine pH 5.5 (5.0-9.0) Ur Specific [place] 1.017 (1.001-1.035) Urine Protein 3+ H (Negative) mg/dL Urine Glucose (UA) Negative (Negative) mg/dL Urine Ketones Trace H (Negative) mg/dL Ur Blood (Man) Trace (Negative) Urine Nitrate Positive H (Negative) Urine Bilirubin Negative (Negative) Urine Urobilinogen 0.2 (<2.0) mg/dL Leukocyte Esterase Rfl 1+ H (Negative) RUSS/UL Urine RBC 0-2 (0-2) /hpf Urine WBC 51-100 H (0-3) /hpf Ur Squamous Epith Cells None seen (Few) /hpf Urine Bacteria 4+ H /hpf Urine Casts 3-5 Influenza A (RT-PCR) Influenza B (RT-PCR) RSV (RT-PCR) SARS-CoV-2 RNA (RT-PCR) Critical Care Time Critical Care Time Critical Care Time: Yes Total Critical Care Time: 57 (Please refer to [facility] for attestation.) Discharge Plan Discharge Clinical Impression: ANDRES (acute kidney injury), Pneumonia, Sepsis, Acute non-ST elevation myocardial infarction (NSTEMI), SOB (shortness of breath), UTI (urinary tract infection), Iron deficiency anemia Patient Disposition: Still a Patient Condition: Improved Patient Language: French Prescriptions: No Action (DME) Gamify G6 Transmitter Device MISCELLANEOUS metoprolol succinate 50 mg tablet extended release 24 hr 50 mg PO DAILY tramadol 50 mg tablet See Rx Instructions PO QID PRN (Reason: pain) Qty: 60 2RF Rx Instructions: Take 1 or 2 tablets orally four times daily PRN; clopidogrel 75 mg tablet 75 mg PO DAILY (DME) MiniMed 630G Insulin Pump Misc See Rx Instructions .ROUTE .MEDSUPPLY Qty: 1 Rx Instructions: She is using this Medtronic insulin pump. sertraline 100 mg tablet 100 mg PO DAILY Qty: 90 2RF nystatin [Klayesta] 100,000 unit/gram powder 1 applic TOPICAL QID ferrous sulfate [FeroSul] 325 mg (65 mg iron) tablet 325 mg PO DAILY cholecalciferol (vitamin D3) [Vitamin D3] 25 mcg (1,000 unit) Tablet 25 mcg PO DAILY insulin aspart U-100 [Novolog U-100 Insulin aspart] 100 unit/mL solution See Rx Instructions SUB-Q USEASDIRECTD 90 Days Qty: 90 6RF Rx Instructions: up to 100 units daily via pump subcut use as directed; lorazepam 0.5 mg tablet 0.5 mg PO DAILY PRN (Reason: Anxiety) Qty: 30 4RF losartan 100 mg tablet See Rx Instructions .ROUTE .COMPLEX Qty: 90 0RF Dose Instruction: TAKE 1 TABLET BY MOUTH DAILY Rx Instructions: TAKE 1 TABLET BY MOUTH DAILY ondansetron 4 mg tablet,disintegrating 4 mg PO Q8H PRN (Reason: nausea and vomiting) Qty: 20 0RF Follow-up/Referrals: Cheikh Ackerman MD [Primary Care Provider, Family Practice] Time of Disposition: 00:58
[2024-12-08] MEDS: AZITHROMYCIN IV 500 MG in SODIUM CHLORIDE 0.9% IV 250 ML IVPB (00:26)
[2024-12-08 00:47] LABS: Add Urine Microscopic? YES; Appearance Urine Clear (Clear); Glucose Urine UA Negative (Negative); Leukocyte Esterase Ur 1+ LEU/UL (Negative); Nitrate Urine Positive (Negative); Specific Grav Ur 1.017 (1.001-1.035)
[2024-12-08] MEDS: IRON SUCROSE COMPLEX 400 MG, IRON SUCROSE COMPLEX 100 MG in SODIUM CHLORIDE 0.9% IV 250 ML 78.57 MG IVPB (00:58)
[2024-12-08] MEDS: ONDANSETRON INJ 4 MG/2 ML VIAL (00:59)
--- OUTSIDE RECORDS SUMMARY | 2024-12-08 01:00 | XMS_ITS | Encounter Summary ---
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
--- OUTSIDE RECORDS SUMMARY | 2024-12-08 01:00 | XMS_ITS | Encounter Summary ---
Author Organization [facility] Facility Care Team Providers Care Minor League Baseball Player Name Role Phone Cheikh Ackerman MD Primary Care Prov ider Cheikh Ackerman MD Primary Care Prov ider Cheikh Ackerman MD Primary Care Prov ider Pepe Nicole MD Unavailable [phone] Francisco Javier Uriostegui MD Unavailable Encounter Details Date Type Department Care Team (Latest Contact Info) Description 02/18/2016 Orders Only [facility]IN[facility] ProviderYohan MD [address] [place] [id number] Social History Tobacco Use Types Packs/Day Years Used Date Smoking Tobacco: Never Assessed Comments Unknown Sex and Gender Information Value Date Recorded Sex Assigned at Not on file Legal Sex Female 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 Gender Identity Female 04/03/2018 2:53 PM CHILLING HOOD OPERATOR Sexual Orientation Not on file documented as of this encounter Plan of Treatment Not on file documented as of this encounter Procedures Procedure Name Priority Date/Time Associated Diagnosis Comments SCAN - PATHOLOGY 02/20/2016 12:0 0 AM CHILLING HOOD OPERATOR SCAN - LABS 02/20/2016 12:00 AM CHILLING HOOD OPERATOR SCAN - LABS 02/20/2016 12:00 AM CHILLING HOOD OPERATOR SCAN - LABS 02/20/2016 12:00 AM CHILLING HOOD OPERATOR SCAN - LABS 02/20/2016 12:00 AM CHILLING HOOD OPERATOR documented in this encounter Results * SCAN - LABS (02/20/2016 12:00 AM CHILLING HOOD OPERATOR) Narrative 02/20/2016 12:00 AM CHILLING HOOD OPERATOR Ordered by an unspecified provider. Historical Provider Final Res ult * SCAN - PATHOLOGY (02/20/2016 12:00 AM CHILLING HOOD OPERATOR) Narrative 02/20/2016 12:00 AM CHILLING HOOD OPERATOR Ordered by an unspecified provider. Historical Provider Final Res ult * SCAN - LABS (02/20/2016 12:00 AM CHILLING HOOD OPERATOR) Narrative 02/20/2016 12:00 AM CHILLING HOOD OPERATOR Ordered by an unspecified provider. [facility] Provider Final Res ult * SCAN - LABS (02/20/2016 12:00 AM CHILLING HOOD OPERATOR) Narrative 02/20/2016 12:00 AM CHILLING HOOD OPERATOR Ordered by an unspecified provider. [facility] Provider Final Res ult * SCAN - LABS (02/20/2016 12:00 AM CHILLING HOOD OPERATOR) Narrative 02/20/2016 12:00 AM CHILLING HOOD OPERATOR Ordered by an unspecified provider. [facility] Provider Final Res ult documented in this encounter Visit Diagnoses Not on filedocumented in this encounter Care Teams Minor League Baseball Player Relationship Specialty Start Date End Date Cheikh Ackerman MD PCP - General 06/11/16 Cheikh Ackerman MD PCP - General 05/04/16 06/10/16 Cheikh Ackerman MD PCP - General 04/25/06 05/03/16 Pepe Nicole MD [address] [place] [address] Referring Physician Nephrology 04/24/20 Francisco Javier Uriostegui MD [address] [place] [address] Consulting Physician Cardiology 11/22/22 documented as of this encounter
--- OUTSIDE RECORDS SUMMARY | 2024-12-08 01:00 | XMS_ITS | Encounter Summary ---
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
--- OUTSIDE RECORDS SUMMARY | 2024-12-08 01:00 | XMS_ITS | Encounter Summary ---
Author Organization [facility] Address [address] [address] Care Team Providers Care Project Manager [employer] Name Role Phone Cheikh Ackerman MD Primary Care Prov ider Cheikh Ackerman MD Primary Care Prov ider Cheikh Ackerman MD Primary Care Prov ider Pepe Nicole MD Unavailable [phone] Francisco Javier Uriostegui MD Unavailable Encounter Details Date Type Department Care Team (Late st Contact Info) Description 10/08/2015 Orders Only [facility] Provider, MD Yohan [address] [place] [id number] Social History Tobacco Use Types Packs/Day Years Used Date Smoking Tobacco: Never Assessed Comments Unknown Sex and Gender Information Value Date Recorded Sex Assigned at Not on file Legal Sex Female 11:58 PM [employer] Gender Identity Female 04/03/2018 2:53 PM [employer] Sexual Orientation Not on file documented as [...] AM CDT Ordered by an unspecified provider. us Historical Provider [facility] PROCE DURES Final Result * CARDIOLOGY REPORT (10/08/2015) Anatomical Region Laterality Modality Other Narrative 10/08/2015 Ordered by an unspecified provider. us Historical Provider [facility] PROCE DURES Final Result documented in this encounter Visit Diagnoses Not on filedocumented in this encounter Care Teams Project Manager Entertainment And [employer] Relationship Specialty Start Date End Date Cheikh Ackerman MD PCP - General 06/11/16 Cheikh Ackerman MD PCP - General 05/04/16 06/10/16 Cheikh Ackerman MD PCP - General 04/25/06 05/03/16 Pepe Nicole MD [address] [facility] [address] [place] [address] Referring Physician Nephrology 04/24/20 Francisco Javier Uriostegui MD [address] [place] [address] Consulting Physician Cardiology 11/22/22 documented as of this encounter
--- OUTSIDE RECORDS SUMMARY | 2024-12-08 01:00 | XMS_ITS | Encounter Summary ---
Author Organization [facility] Care Team Providers Care Chair Maker Name Role Phone Cheikh Ackerman MD Primary Care Prov ider Cheikh Ackerman MD Primary Care Prov ider Cheikh Ackerman MD Primary Care Prov ider Pepe Nicole MD Unavailable Francisco Javier Uriostegui MD Unavailable Encounter Details Date Type Department Care Team (Latest Contact Info) Description 03/12/2016 Orders Only [facility] ProviderYohan MD [address] [place], [place] [id number] Social History Tobacco Use Types Packs/Day Years Used Date Smoking Tobacco: Never Assessed Comments Unknown Sex and Gender Information Value Date Recorded Sex Assigned at Not on file Legal Sex Female 11:58 PM [employer] Gender Identity Female 04/03/2018 2:53 PM [employer] [employer] Sexual Orientation Not on file documented as of this encounter Plan of Treatment Not on file documented as of this encounter Procedures Procedure Name Priority Date/Time Associated Diagnosis Comments SCAN - LABS 04/06/2016 12:00 AM [facility] SCAN - PATHOLOGY 03/12/2016 12:0 0 AM [facility] documented in this encounter Results * SCAN - LABS (04/06/2016 12:00 AM [facility]) Narrative 04/06/2016 12:00 AM [facility] Ordered by an unspecified provider. Historical Provider Final Res ult * SCAN - PATHOLOGY (03/12/2016 12:00 AM [facility]) Narrative 03/12/2016 12:00 AM [facility] Ordered by an unspecified provider. Historical Provider Final Res ult documented in this encounter Visit Diagnoses Not on filedocumented in this encounter Care Teams Chair Maker Relationship Specialty Start Date End Date Cheikh Ackerman MD PCP - General 06/11/16 Cheikh Ackerman MD PCP - General 05/04/16 06/10/16 Cheikh Ackerman MD PCP - General 04/25/06 05/03/16 Pepe Nicole MD [address] [place] [address] Referring Physician Nephrology 04/24/20 Francisco Javier Uriostegui MD [address] [facility] [address] [facility] [address] [place] [address] Consulting Physician Cardiology 11/22/22 documented as of this encounter
--- OUTSIDE RECORDS SUMMARY | 2024-12-08 01:00 | XMS_ITS | Clinical Summary ---
Author Organization [facility] Address [address] [place] [address] Care Team Providers Care Cylinder Handler Name Role Phone Cheikh Ackerman MD Primary Care Prov ider Pepe Nicole MD Unavailable [phone] Francisco Javier Uriostegui MD Unavailable Allergies Active Allergy Reactions Criticality Noted Date Comments Itraconazole Unknown,Itching Low 04/11/2024 RASH Levofloxacin Swelling High 04/11/2024 Terbinafine Hcl Other (See comments) Low 04/11/2024 HOT FLASHES Medications lancets (onetouch ultrasoft) misc Test sugars two times per day as directed 200 3 008 Active blood glucose diagnostic (ONETOUCH ULTRA TEST) strip Test sugars two times per day as directed 200 3 008 Active acetaminophen ER (TYLENOL ARTHRITIS PAIN) 650 mg 8 hr tablet take 2 tablet by oral route twice daily as needed swallowing whole with water. Do not break, crush, dissolve and/or chew. 0 0 017 Active BD INTEGRA SYRINGE 3 mL 25 gauge x 1 syringe 6 018 Active LORazepam (ATIVAN) 0.5 mg tablet Take 1 tablet (0.5 mg total) by mouth as needed 023 Active traMADoL (ULTRAM) 50 mg tablet Take 1 tablet (50 mg total) by mouth as needed for pain Active insulin syringe-needle U-100 (BD Insulin Syringe Ultra-Fine) 0.3 mL 31 gauge x 5/16 syringe Use to inject insulin 5 times per day when off pump 100 each 1 024 Active pen needle, diabetic (BD Vicki 2nd Gen Pen Needle) 32 gauge x 5/32 needle Use to inject insulin 4 times per day - when off pump 100 each 3 024 Active insulin aspart (NovoLOG) 100 unit/mL vial for injectionIndicati ons:Type 2 diabetes mellitus without complication, with long-term current use of insulin (HCC) USE WITH INSULIN PUMP, MAXIMUM DAILY DOSE IS 120 UNITS 110 mL 2 024 Active nystatin powder Apply topically 4 (four) times a day 15 g 1 025 2025 Active Additional Information Patient not taking.Reported on 11/27/2024 furosemide (LASIX) 40 mg tablet TAKE 1 TABLET BY MOUTH DAILY NEEDED FOR LOWER EXTREMITY SWELLING 90 tablet Active Additional Information Patient not taking.Reported on 11/27/2024 evolocumab (Repatha SureClick) 140 mg/mL pen injectorIndicatio ns:Mixed hyperlipidemia Inject 1 mL (140 mg total) under the skin every 14 (fourteen) days 6 mL 3 Active Additional Information Patient not taking.Reported on 11/27/2024 insulin glargine (LANTUS) 100 unit/mL (3 mL) pen for injectionIndicati ons:Type 2 diabetes mellitus with stage 4 chronic kidney disease, with long-term current use of insulin (HCC) Inject 18 units. 1 times per day when off pump TDD 20 units. 15 mL 2 Active Additional Information Patient not taking.Reported on 11/27/2024 glucagon (Baqsimi) 3 mg/actuation spray,non-aerosol Indications:Type 2 diabetes mellitus with stage 4 chronic kidney disease, with long-term current use of insulin (HCC) mg (one actuation) into a single nostril for low blood sugar that does not correct with oral intake or if confused; if no response, may repeat in 15 minutes using a new intranasal device. 2 each 3 Active Dexcom G7 Sensor deviceIndications :Type 2 diabetes mellitus with stage 4 chronic kidney disease, with long-term current use of insulin ([facility]) CHANGE SENSOR EVERY 10 DAYS 9 each 3 Active insulin lispro (HumaLOG) 100 unit/mL vial for injectionIndicati ons:Type 2 diabetes mellitus without complication, with long-term current use of insulin ([facility]) Use the insulin for insulin pump max TDD 120 units daily 110 mL 3 Active ketorolac (ACULAR) 0.5 % ophthalmic solution Active moxifloxacin (VIGAMOX) 0.5 % ophthalmic solution Active prednisoLONE acetate (PRED FORTE) 1 % ophthalmic suspension Active losartan (COZAAR) 100 mg tablet Take 1 tablet (100 mg total) by mouth daily Active sodium bicarbonate 650 mg tablet Take 1 tablet (650 mg total) by mouth 2 (two) times a day 60 tablet 11 025 2025 Active clopidogreL (PLAVIX) 75 mg tablet TAKE 1 TABLET(75 MG) BY MOUTH DAILY 90 tablet 3 Active ergocalciferol (VITAMIN D) 50,000 unit capsule Take 1 capsule (50,000 Units total) by mouth once a week 12 capsule 025 2024 Active losartan (COZAAR) 50 mg tablet Take 1 tablet (50 mg total) by mouth daily 30 tablet 11 024 2024 Discontinued(N o longer taking - Do not display on AVS) clopidogreL (PLAVIX) 75 mg tablet TAKE 1 TABLET(75 MG) BY MOUTH DAILY 90 tablet 1 024 2024 Discontinued ergocalciferol (VITAMIN D) 50,000 unit capsule Take 1 capsule (50,000 Units total) by mouth every 14 (fourteen) days 6 capsule 3 025 2024 Discontinued Active Problems Problem Noted Date Diagnosed Date Anemia in stage 4 chronic kidney disease Claudication of calf muscles 01/24/2024 Current chronic use of systemic steroids Type 2 diabetes mellitus wit hout complication, with long-term current use of insulin 10/25/2023 ILD (interstitial lung disease) 10/05/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 08/05/2023 BOOP (bronchiolitis [...] on prednisone - 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 to discuss her blood pressure and edema [...] Encounters Date Type Department Care Team Description 11/29/2024 Orders Only [facility] [address] [facility] [facility] 5th Floor [address] [place] [phone] Theresa Dale CMA 11/28/2024 Orders Only [facility] [address] [place] [phone] Pepe Nicole MD Anemia in stage 4 chronic kidney disease (HCC) (Primary Dx) 11/28/2024 Orders Only [facility] [address] [place] [address] [place] [address] [place] [phone] Reyna Nugent MD 11/27/2024 2:45 PM CDT Office Visit [facility] Cardiology [address] [place] [phone] Francisco Javier Uriostegui MD Noncompliance (Primary Dx); Coronary artery disease of [place] artery of [place] heart with stable angina pectoris; History of ST elevation myocardial infarction; Status post coronary angioplasty; Type 2 diabetes mellitus with stage 4 chronic kidney disease, with long-term current use of insulin ([facility]); CKD (chronic kidney disease) stage 4, GFR 15-29 ml/min ([facility]); Statin intolerance 11/27/2024 Telephone [facility] Medicine Nephrology [address] 5th [place] [address] [place] [phone] Aspen Zapata 11/19/2024 Results Follow-Up [facility] Metabolism and Lipid [address] [place] [address] 13th [place] [address] [place] [phone] Juani Vargas MD T4, free, TSH, Lipid panel 11/15/2024 Orders Only [facility] Medicine Nephrology [address] [facility] 5th [place] [address] [place] [address] Reyna Nugent MD 11/13/2024 2:20 PM CDT Office Visit [facility] Medicine Nephrology [address] [facility] 5th [place] [address] [place] [address] Stage 3a chronic kidney disease (HCC) (Primary Dx); Renal osteodystrophy; Proteinuria, unspecified type 11/09/2024 8:35 AM CDT Lab [address] [address] Essential hypertension; CKD (chronic kidney disease) stage 4, GFR 15-29 ml/min (HCC); Anemia in stage 4 chronic kidney disease (HCC); Proteinuria, unspecified type; Renal osteodystrophy; Hyperkalemia; Vitamin D deficiency 11/09/2024 8:20 AM CDT Lab [address] [address] Subclinical hypothyroidism; Mixed hyperlipidemia 11/06/2024 Orders Only [facility] Medicine Rheumatology [address] [facility] [address] [place] [phone] Brigida Teixeira Gabriel High risk medication use (Primary Dx) 11/05/2024 Telephone [facility] Cardiology [address] [place] [address] [place] [phone] Francisco Javier Uriostegui MD 10/31/2024 Telephone [facility] Cardiology [address] [place] [address] [place] [phone] Francisco Javier Uriostegui MD Surgical Clearance 10/31/2024 Telephone [facility] Cardiology [address] [place] [phone] Francisco Javier Uriostegui MD 10/31/2024 Telephone [facility] Cardiology [address] [place] [phone] Francisco Javier Uriostegui MD 10/29/2024 Orders Only [facility] Medicine Nephrology [address] [facility] 5th [place] [address] [place] [address] Peep Nicole MD Essential hypertension (Primary Dx); CKD (chronic kidney disease) stage 4, GFR 15-29 ml/min (HCC); Anemia in stage 4 chronic kidney disease (HCC); Proteinuria, unspecified type; Renal osteodystrophy; Hyperkalemia; Vitamin D deficiency 10/24/2024 8:40 AM CDT Office Visit [facility] Metabolism and Lipid [address] [facility] 13th [place] [address] [place] [address] Juani Vargas MD Type 2 diabetes mellitus with stage 4 chronic kidney disease, with long-term current use of insulin (HCC) (Primary Dx); Mixed hyperlipidemia; Subclinical hypothyroidism; Insulin pump titration; Current chronic use of systemic steroids; Type 2 diabetes mellitus without complication, with long-term current use of insulin ([facility]) 10/24/2024 Telephone [facility] Metabolism and Lipid [address] [facility] 13th [place] [address] [place] [address] Brittney Lawrence RMA Prior Auth (Insulin Lispro 100unit/ml) from Last 3 Months Medical History Medical History Date Comments Myocardial infarction (HCC) Myoc ardial infarction Diabetes mellitus Diabetes melli tus Hyperlipidemia Hyperlipidemia Arthritis Arthritis Hypertension Hypertension Family [...] on file 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 Gender Identity Female 04/03/2018 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 Sexual Orientation Not on file Obstetrics History Last Filed Vital Signs Vital Sign Reading Time Taken Comments Blood Pressure 138/80 11/27/2024 3:07 PM CDT Pulse 90 11/27/2024 3:07 PM CDT Temperature 36.7 C (98.1 F) 11/13/2024 2:30 PM CDT Respiratory Rate 16 11/27/2024 3:07 PM CDT Oxygen Saturation 95% 11/27/2024 3:07 PM CDT Inhaled Oxygen Concentration - - Weight 76.7 kg (169 lb) 11/27/2024 3:07 PM CDT Height 165.1 cm (5' 5) 11/27/2024 3:07 PM CDT Body Mass Index 28.12 11/27/2024 3:07 PM CDT Plan of Treatment Health Maintenance Due Date Last Done Comments Albumin Creatinine Ratio, Urine 1965 Breast Cancer Screening-Mammogram 1964 Colon Cancer Screening-Colonoscopy 1964 Depression Screening 1964 Hepatitis C Screening 1964 Dilated Eye Exam 1964 Foot Exam 1964 DTaP/Tdap/Td Vaccine (1 - Tdap) 1975 Hepatitis B Screening 1982 Regular Well Visit/Exam 18-64 1982 Zoster Vaccine (2 of 3) 12/26/2015 10/31/2015, 10/16 Pneumococcal vaccine <65 (2 of 2 - PCV) 05/27/2017 05/27/2016 Cervical Cancer Screening 04/21/2022 04/21/2021 Covid-19 Vaccine (3 - 2024-2 6 season) 2024 04/29/2020, 04/01/2020 Influenza Vaccine (#1) 2024 , 10/31/2015, 10/17/2015 Hemoglobin A1C 04/26/2025 10/24/2024, 10/12, 06/01/2023, Additional history exists Lipid Panel 11/09/2025 11/09/2024, 2023, 05/27/2022, Additional history exists eGFR 11/09/2025 11/09/2024, 02/13, 01/20/2024, Additional history exists Procedures Procedure Name Priority Date/Time Associated Diagnosis Comments EGFR Routine 11/09/2024 8:34 AM CDT Essential hypertension CKD (chronic kidney disease) stage 4, GFR 15-29 ml/min (HCC) Anemia in stage 4 chronic kidney disease (HCC) Proteinuria, unspecified type Renal osteodystrophy Hyperkalemia Vitamin D deficiency DIFFERENTIAL AUTO Routine 11/09/2024 8:3 4 AM CDT Essential hypertension CKD (chronic kidney disease) stage 4, GFR 15-29 ml/min (HCC) Anemia in stage 4 chronic kidney disease (HCC) Proteinuria, unspecified type Renal osteodystrophy Hyperkalemia Vitamin D deficiency CBC WITH AUTO DIFFERENTIAL Routine 11/09/2024 8:34 AM CDT Essential hypertension CKD (chronic kidney disease) stage 4, GFR 15-29 ml/min (HCC) Anemia in stage 4 chronic kidney disease (HCC) Proteinuria, unspecified type Renal osteodystrophy Hyperkalemia Vitamin D deficiency RENAL FUNCTION PANEL Routine 11/09/2024 8:34 AM CDT Essential hypertension CKD (chronic kidney disease) stage 4, GFR 15-29 ml/min (HCC) Anemia in stage 4 chronic kidney disease (HCC) Proteinuria, unspecified type Renal osteodystrophy Hyperkalemia Vitamin D deficiency PTH Routine 11/09/2024 8:34 AM CDT Essential hypertension CKD (chronic kidney disease) stage 4, GFR 15-29 ml/min (HCC) Anemia in stage 4 chronic kidney disease (HCC) Proteinuria, unspecified type Renal osteodystrophy Hyperkalemia Vitamin D deficiency VITAMIN D 25 HYDROXY Routine 11/09/2024 8:34 AM CDT Essential hypertension CKD (chronic kidney disease) stage 4, GFR 15-29 ml/min (HCC) Anemia in stage 4 chronic kidney disease (HCC) Proteinuria, unspecified type Renal osteodystrophy Hyperkalemia Vitamin D deficiency IRON PROFILE W/ IBC Routine 11/09/2024 8 :34 AM CDT Essential hypertension CKD (chronic kidney disease) stage 4, GFR 15-29 ml/min (HCC) Anemia in stage 4 chronic kidney disease (HCC) Proteinuria, unspecified type Renal osteodystrophy Hyperkalemia Vitamin D deficiency FERRITIN Routine 11/09/2024 8:34 AM CDT Essential hypertension CKD (chronic kidney disease) stage 4, GFR 15-29 ml/min (HCC) Anemia in stage 4 chronic kidney disease (HCC) Proteinuria, unspecified type Renal osteodystrophy Hyperkalemia Vitamin D deficiency LIPID PANEL Routine 11/09/2024 8:30 AM CDT Mixed hyperlipidemia TSH Routine 11/09/2024 8:30 AM CDT Subclinical hypothyroidism T4, FREE Routine 11/09/2024 8:30 AM CDT Subclinical hypothyroidism POCT HEMOGLOBIN A1C Routine 10/24/2024 8 :48 AM CDT Type 2 diabetes mellitus with stage 4 chronic kidney disease, with long-term current use of insulin ([facility]) POCT GLUCOSE [id number] Routine 10/24/2024 8: 47 AM CDT Type 2 diabetes mellitus with stage 4 chronic kidney disease, with long-term current use of insulin ([facility]) from Last 3 Months Results * (ABNORMAL) eGFR (11/09/2024 8:34 AM CDT) [facility] eGFR 25(L) >=60 mL/min/1. 73 m2 Comment: Interpretive Data [...] interpretive data was last reviewed 2021. Blood 11/09/2024 8:34 AM CDT 11/09/2024 11:21 AM CDT us Pepe Nicole MD LAB BLOOD ORDERABLES Final Res ult [place] [id number] [facility] [place] [address] * Differential, auto (11/09/2024 8:34 AM CDT) Neutrophil abs 4.28 1.50 - 6.50 K/cumm Imm gran abs 0.01 0.00 - 0.10 K/cumm [facility] Lymphocyte abs 0.87 0.80 - 3.30 K/cumm [facility] Monocyte abs 0.56 0.20 - 0.80 K/cumm [facility] Eosinophil abs 0.01 0.00 - 0.50 K/cumm [facility] Basophil abs 0.02 0.00 - 0.10 K/cumm [facility] Neutrophil pct 74.5 % [facility] Comment: Interpretive Data Percent cell count reference ranges are not reported, since discordance with absolute values may lead to misinterpretation of CBC data. Current Interpretive Data was last revised on 2017. Imm gran pct 0.2 % [facility] Comment: Interpretive Data Percent cell count reference ranges are not reported, since discordance with absolute values may lead to misinterpretation of CBC data. Current Interpretive Data was last revised on 2017. Lymphocyte pct 15.1 % [facility] Comment: Interpretive Data Percent cell count reference ranges are not reported, since discordance with absolute values may lead to misinterpretation of CBC data. Current Interpretive Data was last revised on 2017. Monocyte pct 9.7 % [facility] Comment: Interpretive Data Percent cell count reference ranges are not reported, since discordance with absolute values may lead to misinterpretation of CBC data. Current Interpretive Data was last revised on 2017. Eosinophil pct 0.2 % [facility] Comment: Interpretive Data Percent cell count reference ranges are not reported, since discordance with absolute values may lead to misinterpretation of CBC data. Current Interpretive Data was last revised on 2017. Basophil pct 0.3 % [facility] Comment: Interpretive Data Percent cell count reference ranges are not reported, since discordance with absolute values may lead to misinterpretation of CBC data. Current Interpretive Data was last revised on 2017. Blood 11/09/2024 8:34 AM CDT 11/09/2024 11:20 AM CDT Pepe Nicole MD LAB BLOOD ORDERABLES Final Res ult Performing Organization Address City/[facility] Co de Phone Number [address] [place], [place] [phone] * (ABNORMAL) Iron profile w/ IBC (11/09/2024 8:34 AM CDT) [facility] Iron 21(L) 35 - 145 mcg/dL TIBC 169(L) 250 - 400 mcg/dL [facility] Transferrin saturation 12(L) 20 - 50 % [facility] Blood 11/09/2024 8:34 AM CDT 11/09/2024 11:21 AM CDT us Pepe Nicole MD LAB BLOOD ORDERABLES Final Res ult [address] [place] [address] * (ABNORMAL) CBC with auto differential (11/09/2024 8:34 AM CDT) [facility] WBC 5.75 3.80 - 9.90 K/cumm Hgb 9.3(L) 11.9 - 15.5 g/dL [facility] Hct 30.3(L) 35.6 - 45.5 % [facility] Plt 228 150 - 400 K/cumm [facility] MPV 10.6 9.1 - 12.[address] [facility] RBC 3.55(L) 3.90 - 5.20 M/cumm [facility] MCV 85.4 81.3 - 96.[address] [facility] MCH 26.2(L) 27.1 - 33.[address] [facility] MCHC 30.7(L) 32.3 - 35.7 g/dL [facility] RDW CV 16.7(H) 11.1 - 14.9 % [facility] RDW SD 51.4(H) 35.7 - 48.[address] [facility] NRBC abs 0.00 0.00 - 0.01 K/cumm [facility] Blood 11/09/2024 8:34 AM CDT 11/09/2024 11:20 AM CDT Ppee Nicole MD LAB BLOOD ORDERABLES Final Res ult Performing Organization Address City/[facility] Co de Phone Number [address] [place] [address] * (ABNORMAL) Vitamin D 25 hydroxy (11/09/2024 8:34 AM CDT) [facility] Vitamin D 25-OH 19.0(L) 30.0 - 80.0 ng/mL Blood 11/09/2024 8:34 AM CDT 11/09/2024 11:21 AM CDT Pepe Nicole MD LAB BLOOD ORDERABLES Final Res ult [address] [place] [address] * (ABNORMAL) PTH (11/09/2024 8:34 AM CDT) [facility] PTH 69(H) 15 - 65 pg/mL Blood 11/09/2024 8:34 AM CDT 11/09/2024 11:21 AM CDT us Pepe Nicole MD LAB BLOOD ORDERABLES Final Res ult Performing Organization Address [facility] de Phone Number [address] [address] * (ABNORMAL) Ferritin (11/09/2024 8:34 AM CDT) [facility] Ferritin 566(H) 13 - 150 ng/mL Blood 11/09/2024 8:34 AM CDT 11/09/2024 11:21 AM CDT Pepe Nicole MD LAB BLOOD ORDERABLES Final Res ult Performing Organization Address [facility] de Phone Number [address] [address] * (ABNORMAL) Renal function panel (11/09/2024 8:34 AM CDT) [facility] Sodium 143 135 - 145 mmol/L Potassium, pl 3.8 3.3 - 4.9 mmol/L [facility] Chloride 112(H) 97 - 110 mmol/L [facility] CO2 18(L) 22 - 32 mmol/L [facility] Anion gap 13 2 - 15 mmol/L [facility] BUN 29(H) 6 - 25 mg/dL [facility] Creatinine 2.20(H) 0.60 - 1.10 mg/dL [facility] Glucose 130 70 - 199 mg/dL [facility] Comment: Interpretive Data Fasting glucose >/= [...] interpretive data was last revised 2022. Calcium 8.8 8.5 - 10.3 mg/dL [facility] Phosphorus, pl 4.0 2.3 - 4.5 mg/dL [facility] Albumin 3.4(L) 3.5 - 5.0 g/dL [facility] Blood 11/09/2024 8:34 AM CDT 11/09/2024 11:21 AM CDT Pepe Nicole MD LAB BLOOD ORDERABLES Final Res ult Performing Organization Address [facility] Co de Phone Number [address] [place] [address] * TSH (11/09/2024 8:30 AM CDT) Pathologist [facility] Thyroid Stimulating Hormone 3.28 0.30 - 4.20 mcIUnit/mL Blood 11/09/2024 8:30 AM CDT 11/09/2024 11:21 AM CDT Juani Vargas MD LAB BLOOD ORDERABLES Final Resu lt Performing Organization Address [facility] Co de Phone Number [address] [place] [address] * T4, free (11/09/2024 8:30 AM CDT) Free T4 1.15 0.90 - 1.70 ng/dL Blood 11/09/2024 8:30 AM CDT 11/09/2024 11:21 AM CDT Juani Vargas MD LAB BLOOD ORDERABLES Final Resu lt Performing Organization Address [facility] Co de Phone Number [address] [place] [address] * (ABNORMAL) Lipid panel (11/09/2024 8:30 AM CDT) Cholesterol 192 30 - 199 mg/dL Comment: Interpretive Data Ages < or = 19 years Acceptable: <170 mg/dL Borderline high: 170-199 mg/dL High: >or= 200 mg/dL Ages > or = 20 years Desirable: <200 mg/dL Borderline high: 200-239 mg/dL High: >or= 240 mg/dL Literature References: 1. Expert Panel on Integrated Guidelines for Cardiovascular Health and Risk Reduction in Children and Adolescents. Pediatrics 2011;128:S213 2. NCEP Expert Panel. Circulation 2004;110:227 Current Interpretive Data was last revised on 2017. Triglycerides 252(H) <=149 mg/dL [facility] Comment: Interpretive Data Ages < or = 9 years Acceptable: <75 mg/dL Borderline high: 75-99 mg/dL High: >or= 100 mg/dL Ages 10 to 20 years Acceptable: <90 mg/dL Borderline high: 90-129 mg/dL High: >or= 130 mg/dL Ages > or = 20 years Desirable: <150 mg/dL Borderline high: 150-199 mg/dL High: 200-499 mg/dL Very high: >or= 499 mg/dL Literature References: 1. Expert Panel on Integrated Guidelines for Cardiovascular Health and Risk Reduction in Children and Adolescents. Pediatrics 2011;128:S213 2. NCEP Expert Panel. Circulation 2004;110:227 Current Interpretive Data was last revised on 2017. HDL 26(L) >=40 mg/dL [facility] Comment: Interpretive Data Ages < or = 19 years Acceptable: >45 mg/dL Borderline low: 40-45 mg/dL Low: <40 mg/dL Ages > or = 20 years Desirable: >or= 60 mg/dL Low: <40 mg/dL Literature References: 1. Expert Panel on Integrated Guidelines for Cardiovascular Health and Risk Reduction in Children and Adolescents. Pediatrics 2011;128:S213 2. NCEP Expert Panel. Circulation 2004;110:227 Current Interpretive Data was last revised on 2017. LDL, calculated 121 <=129 mg/dL [facility] Comment: Interpretive Data Ages < or = 19 years Acceptable: <110 mg/dL Borderline high: 110-129 mg/dL High: >or= 130 mg/dL Ages > or = 20 years Optimal: <100 mg/dL Near optimal: 100-129 mg/dL Borderline high: 130-159 mg/dL High: >160 mg/dL Calculated using the Leobardo LDL-C estimating equation. This equation was implemented on 2023. Prior to this date LDL-C was estimated using the Friedewald equation. Literature References: 1. Expert Panel on Integrated Guidelines for Cardiovascular Health and Risk Reduction in Children and Adolescents. Pediatrics 2011;128:S213 2. NCEP Expert Panel. Circulation 2004;110:227 3. Leobardo Rodriguez et al. GAEL Cardiol. 2020 July 12;5(5):540-548. doi: 10.1001/jamacardio.2020.0013 Current Interpretive Data was last revised on 2023. Non-HDL Cholesterol 166 mg/dL [facility] Comment: Interpretive Data Ages < or = 19 years Acceptable: <120 mg/dL Borderline high: 120-144 mg/dL High: >145 mg/dL Ages > or = 20 years When triglycerides are >200 mg/dL, Non-HDL cholesterol is a secondary target of therapy with treatment goals that are 30 mg/dL greater than the LDL cholesterol target. Literature References: 1. Expert Panel on Integrated Guidelines for Cardiovascular Health and Risk Reduction in Children and Adolescents. Pediatrics 2011;128:S213 2. NCEP Expert Panel. Circulation 2004;110:227 Current Interpretive Data was last revised on 2017. Chol/HDL ratio 7 ALICE COBURN Blood 11/09/2024 8:30 AM CDT 11/09/2024 11:21 AM CDT us Juani Vargas MD LAB BLOOD ORDERABLES Final Resu lt ALICE [address] [facility] [place] [address] * POCT hemoglobin A1c (10/24/2024 8:48 AM CDT) Hemoglobin A1C, POC 5.1 4.0 - 5.6 % Blood 10/24/2024 8:48 AM CDT us Juani Vargas MD POINT OF CARE TEST ORDERABLES F inal Result * POCT glucose (10/24/2024 8:47 AM CDT) Glucose Blood, POC 124 Normal Fasting 70 - 100, Random <200 mg/dL Blood 10/24/2024 8:47 AM CDT Juani Vargas MD POINT OF CARE TEST ORDERABLES F inal Result from Last 3 Months Insurance [facility] HMO/PPO Address: [address] [address] [place] [address] Care Teams Cylinder Handler Relationship Specialty Start Date End Date Cheikh Ackerman MD PCP - General 06/11/16 Pepe Nicole MD [address] [place] [address] Referring Physician Nephrology 04/24/20 Francisco Javier Uriostegui MD [address] [facility] 162 [facility] 120 [place] [address] Consulting Physician Cardiology 11/22/22
--- OUTSIDE RECORDS SUMMARY | 2024-12-08 01:00 | XMS_ITS | Encounter Summary ---
Author Organization [facility] Address [address] [place] [address] Care Team Providers Care Director Oracle Database Name Role Phone Linda Euceda Primary Care Provider [phone] Encounter Details Date Type Department Care Team (Late st Contact Info) Description 05/20/2021 Surround App Message Enc [facility] Family & Internal Medicine [facility] [id number] [place] [phone] [place] [address] [place] [address] 05/26/21 Appointment Social History Tobacco [...] on file Legal Sex Female 5:38 PM RUBBER HEEL AND SOLE PRESS TENDER Gender Identity Not on file Sexual Orientation Not on file COVID-19 Exposure Response Date Recorded In the last 10 days, have yo u been in contact with someone who was confirmed or suspected to have Coronavirus/COVID-19? No / Unsure 04/21/2021 3:52 PM RUBBER HEEL AND SOLE PRESS TENDER documented as of this encounter Plan of Treatment Not on file documented as of this encounter Visit Diagnoses Not on filedocumented in this encounter Additional Health Concerns Assessment Noted Time PHQ-9 Depression Total Score: 8 04/21/19 22 4:17 PM RUBBER HEEL AND SOLE PRESS TENDER documented as of this encounter Care Teams Director Oracle Database Relationship Specialty [place] [address] [place] [address] PCP - General PHYSICIAN B2B SALES REPRESENTATIVE 04/08/21 documented as of this encounter
--- OUTSIDE RECORDS SUMMARY | 2024-12-08 01:00 | XMS_ITS | Encounter Summary ---
Author Organization [facility] Care Team Providers Care Electrical Engineer Name Role Phone Cheikh Ackerman MD Primary Care Prov ider Cheikh Ackerman MD Primary Care Prov ider Cheikh Ackerman MD Primary Care Prov ider Pepe Nicole MD Unavailable [phone] Francisco Javier Uriostegui MD Unavailable Encounter Details Date Type Department Care Team (Latest Contact Info) Description 02/11/2016 Orders Only [facility] CLINCON[facility] ProviderYohan MD [address] [place] [address] Social History Tobacco Use Types Packs/Day Years Used Date Smoking Tobacco: Never Assessed Comments Unknown Sex and Gender Information Value Date Recorded Sex Assigned at Not on file Legal Sex Female 11:58 PM SECURITIES UNDERWRITER Gender Identity Female 04/03/2018 2:53 PM SECURITIES UNDERWRITER Sexual Orientation Not on file documented as of this encounter Plan of Treatment Not on file documented as of this encounter Procedures Procedure Name Priority Date/Time Associated Diagnosis Comments PROCEDURE - RESULT 02/11/2016 12 :00 AM SECURITIES UNDERWRITER documented in this encounter Results * PROCEDURE - RESULT (02/11/2016 12:00 AM SECURITIES UNDERWRITER) Narrative 02/11/2016 12:00 AM SECURITIES UNDERWRITER Ordered by an unspecified provider. us Historical Provider Final Res ult documented in this encounter Visit Diagnoses Not on filedocumented in this encounter Care Teams Electrical Engineer Relationship Specialty Start Date End Date Cheikh Ackerman MD PCP - General 06/11/16 Cheikh Ackerman MD PCP - General 05/04/16 06/10/16 Cheikh Ackerman MD PCP - General 04/25/06 05/03/16 Pepe Nicole MD [address] [place] [address] Referring Physician Nephrology 04/24/20 Francisco Javier Uriostegui MD [address] [facility] [address] [place], [place] [id number] Consulting Physician Cardiology 11/22/22 documented as of this encounter
--- OUTSIDE RECORDS SUMMARY | 2024-12-08 01:00 | XMS_ITS | Encounter Summary ---
Author Organization [facility] Facility Care Team Providers Care Director Global Strategic Publisher Sales Name Role Phone Cheikh Ackerman MD Primary Care Prov ider Cheikh Ackerman MD Primary Care Prov ider Cheikh Ackerman MD Primary Care Prov ider Pepe Nicole MD Unavailable [phone] Francisco Javier Uriostegui MD Unavailable Encounter Details Date Type Department Care Team (Latest Contact Info) Description 02/26/2016 Orders Only [facility] CLINCONV ProviderYohan MD [address] [place] [address] Social History Tobacco Use Types Packs/Day Years Used Date Smoking Tobacco: Never Assessed Comments Unknown Sex and Gender Information Value Date Recorded Sex Assigned at Not on file Legal Sex Female 11:58 PM MANAGER APPOINTMENT Gender Identity Female 04/03/2018 2:53 PM MANAGER APPOINTMENT Sexual Orientation Not on file documented as of this encounter Plan of Treatment Not on file documented as of this encounter Procedures Procedure Name Priority Date/Time Associated Diagnosis Comments PROCEDURE - RESULT 02/26/2016 12 :00 AM MANAGER APPOINTMENT documented in this encounter Results * PROCEDURE - RESULT (02/26/2016 12:00 AM MANAGER APPOINTMENT) Narrative 02/26/2016 12:00 AM MANAGER APPOINTMENT Ordered by an unspecified provider. us Historical Provider Final Res ult documented in this encounter Visit Diagnoses Not on filedocumented in this encounter Care Teams Director Global Strategic Publisher Sales Relationship Specialty Start Date End Date Cheikh Ackerman MD PCP - General 06/11/16 Cheikh Ackerman MD PCP - General 05/04/16 06/10/16 Cheikh Ackerman MD PCP - General 04/25/06 05/03/16 Pepe Nicole MD [address] [place] [address] Referring Physician Nephrology 04/24/20 Francisco Javier Uriostegui MD [address] [facility] [address] [place], [place] [id number] Consulting Physician Cardiology 11/22/22 documented as of this encounter
--- OUTSIDE RECORDS SUMMARY | 2024-12-08 01:00 | XMS_ITS | Encounter Summary ---
Author Organization [facility] Address [address] [place] [address] Phone Care Team Providers Care Field Artillery Operations Man Name Role Phone Cheikh Ackerman MD Primary Care Prov ider Pepe Nicole MD Unavailable [phone] Francisco Javier Uriostegui MD Unavailable Encounter [...] on file Legal Sex Female 11:58 PM FIRE SPRINKLER INSTALLER Gender Identity Female 04/03/2018 2:53 PM FIRE SPRINKLER INSTALLER Sexual Orientation Not on file documented as of this encounter Plan of Treatment Not on file documented as of this encounter Procedures Procedure Name Priority Date/Time Associated Diagnosis Comments SCAN - LABS 01/13/2021 documented in this encounter Results * SCAN - LABS (01/13/2021) us Provider Scanning Final Result documented in this encounter Visit Diagnoses Not on filedocumented in this encounter Care Teams Field Artillery Operations Man Relationship Specialty Start Date End Date Cheikh Ackerman MD PCP - General 06/11/16 Pepe Nicole MD [address] [place] [address] Referring Physician Nephrology 04/24/20 Francisco Javier Uriostegui MD [address] [facility] 120 [place] [address] Consulting Physician Cardiology 11/22/22 documented as of this encounter
--- OUTSIDE RECORDS SUMMARY | 2024-12-08 01:00 | XMS_ITS | Encounter Summary ---
Author Organization [facility] Facility Care Team Providers Care Degreaser Operator Name Role Phone Cheikh Ackerman MD Primary Care Prov ider Cheikh Ackerman MD Primary Care Prov ider Cheikh Ackerman MD Primary Care Prov ider Pepe Nicole MD Unavailable [phone] Francisco Javier Uriostegui MD Unavailable Encounter Details Date Type Department Care Team (Latest Contact Info) Description 03/04/2016 Orders Only [facility] CLINCONV ProviderYohan MD [address] [place] [address] Social History Tobacco Use Types Packs/Day Years Used Date Smoking Tobacco: Never Assessed Comments Unknown Sex and Gender Information Value Date Recorded Sex Assigned at Not on file Legal Sex Female 11:58 PM FURNITURE DECALS INSPECTOR Gender Identity Female 04/03/2018 2:53 PM FURNITURE DECALS INSPECTOR Sexual Orientation Not on file documented as of this encounter Plan of Treatment Not on file documented as of this encounter Procedures Procedure Name Priority Date/Time Associated Diagnosis Comments SCAN - LABS 03/04/2016 12:00 AM FURNITURE DECALS INSPECTOR documented in this encounter Results * SCAN - LABS (03/04/2016 12:00 AM FURNITURE DECALS INSPECTOR) Narrative 03/04/2016 12:00 AM FURNITURE DECALS INSPECTOR Ordered by an unspecified provider. us Historical Provider Final Res ult documented in this encounter Visit Diagnoses Not on filedocumented in this encounter Care Teams Degreaser Operator Relationship Specialty Start Date End Date Cheikh Ackerman MD PCP - General 06/11/16 Cheikh Ackerman MD PCP - General 05/04/16 06/10/16 Cheikh Ackerman MD PCP - General 04/25/06 05/03/16 Pepe Nicole MD [address] [place] [address] Referring Physician Nephrology 04/24/20 Francisco Javier Uriostegui MD [address] [facility] [address] [place], [place] [phone] Consulting Physician Cardiology 11/22/22 documented as of this encounter
--- OUTSIDE RECORDS SUMMARY | 2024-12-08 01:00 | XMS_ITS | Clinical Summary ---
Author Organization [facility] Address [address] [place] [address] Care Team Providers Care Pianos And Organs Salesperson Name Role Phone Vanessa Cardoso MD Primary Care Provider [phone] Source Comments [facility],non-owned Affiliates and Associated Physician Practices is amultiple site organization consisting of ambulatory clinics and hospital sitesin [place], [place], [place] and [place]. This disclosure is being madepursuant to the Care Everywhere program and may not contain all information available regarding this patient. Last updated 17.[facility] Social History Tobacco Use Types Packs/Day Years Used Date Smoking Tobacco: Never Assessed Comments Unknown Sex and Gender Information Value Date Recorded Sex Assigned at Not on file Legal Sex Female 5:40 AM BINGO CALLER Gender Identity Not on file Sexual Orientation [...] 2014 ZOSTER VACCINE (1 of 2) 2014 DEPRESSION SCREENING 03/14/2024 PAP SMEAR 04/21/2024 04/21/2021, 04/21/2021 COVID-19 VACCINE (3 - 2024-2 6 season) 2024 04/29/2020, 04/01/2020 INFLUENZA VACCINE (#1) 2024 LIPID TESTING 08/09/2028 [...] patient's age to complete this topic Insurance SELF PAY NO INSURANCE Member Subscriber Plan / Payer (Ef fective for All Dates) Name:Rosanne Sidhu Member ID:Not on file Relation to Subscriber:Not on file Name:ROSANNE SIDHU Subscriber ID:Not on file (Home) Address: [address] [place] [id number] Payer ID:Not on file Group ID:Not on file Type:Self Pay Address: [place], [place] Care Teams Pianos And Organs Salesperson Relationship Specialty Start Date End Date Vanessa Cardoso MD [address] [place] [phone] PCP - General 01/09/21
--- OUTSIDE RECORDS SUMMARY | 2024-12-08 01:00 | XMS_ITS | Encounter Summary ---
Author Organization [facility] Address [address] [place] [address] Phone Care Team Providers Care Care Companion Name Role Phone Cheikh Ackerman MD Primary Care Prov ider Pepe Nicole MD Unavailable [phone] Francisco Javier Uriostegui MD Unavailable Encounter [...] file Legal Sex Female 11:58 PM CHIEF ARSON DIVISION Gender Identity Female 04/03/2018 2:53 PM CHIEF ARSON DIVISION Sexual Orientation Not on file documented as [...] on filedocumented in this encounter Care Teams Care Companion Relationship Specialty Start Date End Date Cheikh Ackerman MD PCP - General 06/11/16 Pepe Nicole MD [address] [place] [address] Referring Physician Nephrology 04/24/20 Francisco Javier Uriostegui MD [address] [facility] [address] [place] [address] Consulting Physician Cardiology 11/22/22 documented as of this encounter
--- OUTSIDE RECORDS SUMMARY | 2024-12-08 01:01 | XMS_ITS | Encounter Summary ---
Author Organization [facility] Address [address] [place] [address] Phone Care Team Providers Care Stud Driver Name Role Phone Cheikh Ackerman MD Primary Care Prov ider Pepe Nicole MD Unavailable [phone] Francisco Javier Uriostegui MD Unavailable Encounter Details Date Type Department Care Team (Late st Contact Info) Description 11/19/2024 Results Follow-Up [facility] Endocr[facility]ology Metabolism and Lipid [address] [facility] 13th [place] [address] [place] [phone] Juani Vargas MD [address] [facility] [address] [place] [address] T4, free, TSH, Lipid panel Social History Tobacco Use Types Packs/Day Years [...] on file Legal Sex Female 11:58 PM HISTOLOGY TECH Gender Identity Female 04/03/2018 2:53 PM HISTOLOGY TECH Sexual Orientation Not on file documented as of this encounter Plan of Treatment Not on file documented as of this encounter Visit Diagnoses Not on filedocumented in this encounter Care Teams Stud Driver Relationship Specialty Start Date End Date Cheikh Ackerman MD PCP - General 06/11/16 Pepe Nicole MD [address] [place] [address] Referring Physician Nephrology 04/24/20 Francisco Javier Uriostegui MD [address] [place] [address] Consulting Physician Cardiology 11/22/22 documented as of this encounter
--- OUTSIDE RECORDS SUMMARY | 2024-12-08 01:01 | XMS_ITS | Clinical Summary ---
Author Organization [facility] Address [address] [place] [address] Care Team Providers Care Chin Strap Cutter Name Role Phone David Euceda Primary Care Provider [phone] Allergies Active Allergy Reactions Criticality Noted Date [...] on file Legal Sex Female 5:38 PM SECONDARY ART TEACHER Gender Identity Not on file Sexual Orientation Not on file Last Filed Vital Signs Vital Sign Reading Time Taken Comments Blood Pressure 152/90 04/21/2021 4:02 PM SECONDARY ART TEACHER Pulse 78 04/21/2021 4:02 PM SECONDARY ART TEACHER Temperature 37.1 C (98.7 F) 04/21/2021 4:02 PM SECONDARY ART TEACHER Respiratory Rate 18 04/21/2021 4:02 PM SECONDARY ART TEACHER Oxygen Saturation 98% 04/21/2021 4:02 PM SECONDARY ART TEACHER Inhaled Oxygen Concentration - - Weight 91.2 kg (201 lb) 04/21/2021 4:02 PM SECONDARY ART TEACHER Height 165.1 cm (5' 5) 04/21/2021 4:02 PM SECONDARY ART TEACHER Body Mass Index 33.45 04/21/2021 4:02 PM SECONDARY ART TEACHER Plan of Treatment Health Maintenance Due Date Last Done Comments Colorectal Cancer Screening Colonoscopy (10 Years) 1964 Hepatitis C 1982 DTaP, Tdap and Td Vaccines ( 1 - Tdap) 1983 Mammogram Screening 2004 Pneumococcal Vaccine: 50+ Years (1 of 1 - PCV) 2014 Zoster Vaccines (1 of 2) 2014 Annual Physical 04/21/2022 04/21/2021 Cervical Cancer Screening Pa p Smear (Age 30 to 64) Every 3 Years 04/21/2024 04/21/2021 COVID-19 Vaccine (3 - 2024-2 6 season) 2024 04/29/2020, 04/01/2020 Cervical Cancer Screening Pa p with HPV [...] PAPILLOMAVIRUS, HIGH-RISK TYPES Routine 04/21/2021 12:00 PM SECONDARY ART TEACHER CYTOPATH CERV/VAG THIN LAYER Routine 04/21/2021 8:03 AM SECONDARY ART TEACHER from Last 3 Months or Most Recently Relevant to Health Maintenance Results * HUMAN PAPILLOMAVIRUS, HIGH-RISK TYPES (04/21/2021 12:00 PM SECONDARY ART TEACHER) SPEC DESCRIPTION CERVICAL/END OCERVICAL 04/23/2021 9:25 AM SECONDARY ART TEACHER [facility] HPV DNA HIGH RISK NEGATIVE NEGATIVE 04/24/2021 11:54 AM SECONDARY ART TEACHER [facility] Comment:SEE CYTOLOGY REPORT 04/21/2021 12:0 0 PM SECONDARY ART TEACHER David GÓMEZ PATHOLOGY/CYTOLOGY ORDERABLE S Final Result [facility] [address] [place] [address], * Cytopath Cerv/Vag Thin Layer (04/21/2021 8:03 AM SECONDARY ART TEACHER) THIN PREP PAP [facility] [address] [place] [address] Department of Pathology Pathology Report CERVICAL/VAGINAL PAP SMEAR REPORT Name: ROSANNE SIDHU Age: 2 1965 (Age: 55) Location: [facility] Sex: F Collected Date: 04/21/2021 [facility] #: [id number] Date Received: 04/23/2021 Date Reported: 04/28/2021 Provider: [...] is not effective in detecting cervical adenocarcinoma. [facility] 04/21/2021 8:03 AM SECONDARY ART TEACHER 04/23/2021 8:03 AM SECONDARY ART TEACHER Comment:CERVICAL/ENDOCERVICA L us David GÓMEZ PATHOLOGY/CYTOLOGY ORDERABLE S Final Result [facility] [address] [place] [address], from Last 3 Months or Most Recently Relevant to Health Maintenance Insurance [facility] Care Teams Chin Strap Cutter Relationship Specialty [place] [address] [place] [address] PCP - General PHYSICIAN FORMWORK CARPENTER 04/08/21
[2024-12-08 01:22] LABS: Influenza A QL RT-PCR Negative (Negative); Influenza B QL RT-PCR Negative (Negative); RSV RNA, RT-PCR Negative (Negative); SARS-CoV-2 RNA PCR Negative (Negative)
--- NOTE | 2024-12-08 02:15 | ECG_ITS ---
Test Date: 2024-12-08 02:21:49 Measurements Intervals [place] Rate: 110 P: 46 VT: 144 QRS: -56 QRSD: 90 T: 76 QT: 330 QTc: 447 Interpretive Statements SINUS TACHYCARDIA LEFT ANTERIOR FASCICULAR BLOCK POSSIBLE ANTERIOR MYOCARDIAL INFARCTION , OF INDETERMINATE AGE Electronically Signed On 12-09-2024 20:37:11 CDT by Francisco Javier Uriostegui D.O
[2024-12-08] MEDS: ACETAMINOPHEN 500 MG TABLET 1000 MG PO ×3 (02:52→20:09)
[2024-12-08 03:12] LABS: Troponin I 0.754 ng/mL (0.000-0.034)
[2024-12-08 06:05] LABS: Troponin I 0.810 ng/mL (0.000-0.034)
--- NOTE | 2024-12-08 06:51 | ADMGEN ---
This patient, Rosanne May, was admitted to IMU Room 205-01. Patient/family oriented to hospital policies and general routines including ID bracelet, bed and alarms, visiting hours, pain management, procedures, bathroom and other care routines, personal items, smoking policy, room service/diet, and visiting hours. Information on how to activate the Rapid Response Team has been discussed. Patient/Family are encouraged to report perceived risks to care and to ask questions if they do not understand what they are told or what they should do. Report received from MARTINEZ Sam at [phone]. Patient arrived via stretcher without issue at 0320.
[2024-12-08 09:29] LABS: Hematocrit 25.1 % (37.0-47.0); Hemoglobin 7.2 g/dL (12.0-15.0); Mean Corpuscular HGB Conc 28.7 g/dl (32-36); Mean Corpuscular Hemoglobin 24.5 pg (26-34); Mean Corpuscular Volume 85.4 fl (80-100); Platelet Count Result 316 k/mm3 (150-375); Red Blood Count 2.94 M/mm3 (4.2-5.4); White Blood Count 5.8 K/mm3 (4.5-10.0)
[2024-12-08 09:42] LABS: Alanine Aminotransferase 8 U/L (6-35); Albumin Level 3.2 g/dL (3.5-5.1); Alkaline Phosphatase 61 U/L (38-126); Anion Gap 10 mmol/L (4-12); Aspartate Amino Transferase 16 U/L (14-36); Bilirubin,Total 0.4 mg/dL (0.2-1.3); Blood Urea Nitrogen 39 mg/dL (7-17); Calcium 8.2 mg/dL (8.4-10.2); Carbon Dioxide 18 mmol/L (22-30); Chloride 109 mmol/L (98-107); Estimated CRCL calculation 22 ml/min; Estimated Glomerular Filt Rate 19; Glucose 164 mg/dL (65-110); Magnesium 2.2 mg/dL (1.6-2.3); Potassium 5.0 mmol/L (3.4-5.0); Sodium 137 mmol/L (137-145); Total Protein 5.4 g/dL (6.3-8.2)
[2024-12-08 09:54] LABS: Troponin I 0.915 ng/mL (0.000-0.034)
--- NOTE | 2024-12-08 15:55 | PC.NURSE ---
On 12/08/24, the student, Carina Miller, provided care and completed [facility] documentation on this patient. I have reviewed the student's documentation and agree with the findings.
[2024-12-08 19:04] LABS: Hematocrit 24.6 % (37.0-47.0); Hemoglobin 7.1 g/dL (12.0-15.0)
[2024-12-08 19:34] LABS: Troponin I 0.765 ng/mL (0.000-0.034)
--- NOTE | 2024-12-08 19:59 | PM.IMHP ---
H&P: HPI History of Present Illness Date/Time: 12/08/24 19:59 Chief Complaint: Shortness of breath Narrative: 59-year-old female with a history of hypertension, hyperlipidemia, CKD stage 3, insulin-dependent diabetes mellitus, depression anxiety, CAD, history of ST-elevation [place] status post POBA small caliber diagonal branch 05/08/2016, history of splenic infarct, polymyalgia rheumatica, untreated DOUG per the patient's wishes, presents with shortness of breath which has been steadily worsening over many weeks. She was told by her PCP she has low hemoglobin secondary to iron deficiency. She was scheduled for outpatient blood transfusion and iron infusion which she did not get they a, she also complained of dysuria. Denied any chest pain. Reports she has a history of CHF but she was taken off of Lasix due to poor kidney function. She has had worsening lower extremity edema over a few weeks. In the ER she was given IV iron, she was prescribed Rocephin and azithromycin. She had sinus tachycardia and elevated troponin but no significant ST changes on EKG. Review of Systems Review of Systems: All systems reviewed & are unremarkable except as noted in HPI and below (Subjective) PMFSH Past Medical History Medical History History of MD (myocardial infarction) Anemia Bilateral primary osteoarthritis of knee Coronary artery disease Depression Anxiety Insulin dependent type 2 diabetes mellitus Hyperlipidemia Chronic kidney disease, stage 3 Essential hypertension Surgical History Surgical History History of radial keratotomy History of coronary angioplasty History of section History of cardiac catheterization (2014) History of hip surgery (2018) ORIF right hip for IT fx Family History Family History Father Family history of heart disease in male family member before age 55 Family history of coronary artery disease Hypertension Grandparent Diabetes mellitus Cerebrovascular accident Mother Family history of heart disease in male family member before age 55 Family history of arthritis Endometrial cancer Social History Social History Social History: Surrogate medical decision maker: Louis May, spouse. Code status: Full code. Smoking status: Never smoker Second hand tobacco smoke exposure: No Alcohol intake: current Drinks per week: 1 Substance use: never Substance use type: does not use Do You Feel Safe in your Home?: Yes Lack of Transportation: No Lack of Food: Never True Current Housing: I Have Housing Concerned About Future Housing: No Difficulty Paying Gas/Electric Bills: No Difficulty Paying for Meds: No Currently Unemployed: No Education: Bachelor's Degree Difficulty w/ Childcare or Family Care: No Living arrangements: with family Additional living arrangements comments: Lives with in [place]. 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: No Agree to blood products: Yes Meds Home Medications and Allergies Home Medications ?Medication ?Instructions ?Recorded ?Confirmed ?Type clopidogrel 75 mg tablet 75 mg PO DAILY 08/01/19 12/08/24 History subcutaneous insulin pump (MiniMed #1 ea 08/03/19 12/08/24 History 630G Insulin Pump) insulin aspart U-100 100 unit/mL See Rx Instructions subcut 02/06/20 12/08/24 Rx subcutaneous solution (Novolog USEASDIRECTD 90 days #90 mL U-100 Insulin aspart) ferrous sulfate 325 mg (65 mg 650 mg PO DAILY 07/22/22 12/08/24 History iron) tablet (FeroSul) lorazepam 0.5 mg tablet 0.5 mg PO DAILY PRN Anxiety #30 01/10/23 12/08/24 Rx tabs blood-glucose transmitter (Dexcom 01/29/23 12/08/24 History G6 Transmitter device) tramadol 50 mg tablet See Rx Instructions PO QID PRN 02/07/24 12/08/24 Rx pain #60 tabs nystatin 100,000 unit/gram topical 1 applic topical QID 05/20/24 12/08/24 History powder (Klayesta) losartan 100 mg tablet See Rx Instructions .Route 11/29/24 12/08/24 Rx .COMPLEX #90 tabs ondansetron 4 mg disintegrating 4 mg PO Q8H PRN nausea and 11/29/24 12/08/24 Rx tablet vomiting #20 tabs Tylenol Extra Strength 650 mg PO Q8H PRN pain 12/08/24 12/08/24 History ergocalciferol (vitamin D2) 1,250 50,000 unit PO WEEKLY 12/08/24 12/08/24 History mcg (50,000 unit) capsule evolocumab 420 mg/3.5 mL 420 mg subcut .BIWEEKLY 12/08/24 12/08/24 History subcutaneous wearable injector (Repatha Pushtronex) Allergies Allergy/AdvReac Type Severity Reaction Status Date / Time [facility] Allergy Severe Swelling Verified 12/07/24 22:54 of Lip/Tongue/Throat itraconazole AdvReac Mild Itching Verified 12/07/24 22:54 Lamisil AdvReac Mild Other Uncoded 10/19/24 12:55 Vital Signs Vital Signs - 24 hr 12/07/24 22:39 12/07/24 23:38 12/07/24 23:39 Temperature 100.0 F H Pulse Rate 116 H 118 H 115 H Respiratory Rate 20 21 H 22 H Blood Pressure 140/76 138/78 Pulse Oximetry 99 100 100 Oxygen Delivery Room Air 12/07/24 23:45 12/07/24 23:46 12/08/24 00:00 Temperature Pulse Rate 114 H 113 H 115 H Respiratory Rate 21 H 22 H 23 H Blood Pressure 139/76 Pulse Oximetry 100 98 Oxygen Delivery 12/08/24 00:01 12/08/24 00:10 12/08/24 00:15 Temperature Pulse Rate 113 H 119 H Respiratory Rate 28 H 24 H Blood Pressure 133/76 Pulse Oximetry 100 96 Oxygen Delivery Room Air 12/08/24 00:30 12/08/24 00:45 12/08/24 01:00 Temperature Pulse Rate 121 H 115 H 117 H Respiratory Rate 27 H 32 H 20 Blood Pressure Pulse Oximetry 91 95 93 Oxygen Delivery 12/08/24 01:05 12/08/24 01:06 12/08/24 01:15 Temperature Pulse Rate 112 H 113 H 114 H Respiratory Rate 30 H 35 H 29 H Blood Pressure 118/74 Pulse Oximetry 93 93 94 Oxygen Delivery 12/08/24 01:16 12/08/24 01:30 12/08/24 01:31 Temperature Pulse Rate 113 H 110 H 111 H Respiratory Rate 32 H 24 H 29 H Blood Pressure 119/75 115/68 Pulse Oximetry 94 92 91 Oxygen Delivery 12/08/24 01:45 12/08/24 01:46 12/08/24 02:00 Temperature Pulse Rate 112 H 112 H 112 H Respiratory Rate 19 31 H 21 H Blood Pressure 124/75 Pulse Oximetry 91 93 93 Oxygen Delivery 12/08/24 02:01 12/08/24 02:15 12/08/24 02:16 Temperature Pulse Rate 110 H 111 H 109 H Respiratory Rate 24 H 33 H 24 H Blood Pressure 125/73 122/71 Pulse Oximetry 94 89 L 94 Oxygen Delivery 12/08/24 02:30 12/08/24 02:31 12/08/24 02:45 Temperature Pulse Rate 118 H 118 H 112 H Respiratory Rate 17 27 H 32 H Blood Pressure 125/80 Pulse Oximetry 93 96 93 Oxygen Delivery 12/08/24 02:46 12/08/24 03:00 12/08/24 03:01 Temperature Pulse Rate 110 H 110 H 107 H Respiratory Rate 29 H 28 H 25 H Blood Pressure 130/75 130/76 Pulse Oximetry 93 93 93 Oxygen Delivery 12/08/24 03:20 12/08/24 04:00 12/08/24 06:00 Temperature 98.9 F Pulse Rate 111 H 102 H 94 Respiratory Rate 18 Blood Pressure 128/78 Pulse Oximetry 91 Oxygen Delivery 12/08/24 07:50 12/08/24 08:00 12/08/24 08:00 Temperature 98.2 F Pulse Rate 98 96 Respiratory Rate 16 Blood Pressure 127/69 Pulse Oximetry 98 Oxygen Delivery Room Air 12/08/24 10:00 12/08/24 11:14 12/08/24 11:40 Temperature 98.3 F Pulse Rate 92 91 Respiratory Rate 22 H Blood Pressure 112/56 L Pulse Oximetry 100 Oxygen Delivery Room Air 12/08/24 11:56 12/08/24 12:00 12/08/24 14:00 Temperature 98.3 F Pulse Rate 91 93 90 Respiratory Rate 22 H Blood Pressure 112/56 L Pulse Oximetry 100 Oxygen Delivery 12/08/24 15:28 12/08/24 16:00 12/08/24 16:00 Temperature 98.4 F Pulse Rate 90 90 Respiratory Rate 24 H Blood Pressure 120/64 Pulse Oximetry 98 Oxygen Delivery Room Air 12/08/24 18:00 Temperature Pulse Rate 107 H Respiratory Rate Blood Pressure Pulse Oximetry Oxygen Delivery Exam Const: General: comfortable and no acute distress HENMT: Mouth: Yes moist mucous membranes Eyes: Pupils: Equal, round and reactive pupils present Neck: Neck: supple Resp: Effort & Inspection: normal respiratory effort Other: Crackles Cardio: Rate: regular rate Rhythm: regular rhythm GI: GI Palp: Yes Soft to palpation Neuro: Motor exam (neuro): 5/5 motor strength present throughout Extrem: General: edema H&P: Results Labs Labs: Short CBC 12/07/24 12/08/24 12/08/24 Range/Units 22:48 09:20 18:50 WBC 6.7 5.8 (4.5-10.0) K/mm3 Hgb 7.6 L 7.2 L 7.1 L (12.0-15.0) g/dL Hct 25.6 L 25.1 L 24.6 L (37.0-47.0) % Plt Count 315 316 (150-375) k/mm3 BMP 12/07/24 12/08/24 22:48 09:20 Sodium 137 137 Potassium 4.6 5.0 Chloride 110 H 109 H Carbon Dioxide 17 L 18 L BUN 38 H 39 H Creatinine 2.63 H 2.60 H Glucose 114 H 164 H Calcium 8.2 L 8.2 L Cardiac Enzymes 12/07/24 12/08/24 12/08/24 Range/Units 22:48 02:23 05:07 Troponin I 0.876 H* 0.754 H* 0.810 H* (0.000-0.034) ng/mL 12/08/24 12/08/24 Range/Units 09:20 18:50 Troponin I 0.915 H* 0.765 H* (0.000-0.034) ng/mL Liver Function 12/07/24 12/08/24 Range/Units 22:48 09:20 Total Bilirubin 0.3 0.4 (0.2-1.3) mg/dL AST 15 16 (14-36) U/L ALT 10 8 (6-35) U/L Alkaline Phosphatase 64 61 (38-126) U/L Albumin 3.2 L 3.2 L (3.5-5.1) g/dL Urine 12/08/24 Range/Units 00:36 Urine Color Yellow (Yellow) Urine Appearance Clear (Clear) Urine pH 5.5 (5.0-9.0) Ur Specific [place] 1.017 (1.001-1.035) Urine Protein 3+ H (Negative) mg/dL Urine Glucose (UA) Negative (Negative) mg/dL Assessment and Plan Assessment and plan (1) SOB (shortness of breath): Code(s): R06.02 - Shortness of breath Status: Acute (2) Pulmonary edema: Code(s): J81.1 - Chronic pulmonary edema Status: Acute (3) CKD (chronic kidney disease): Code(s): N18.9 - Chronic kidney disease, unspecified Status: Acute (4) UTI (urinary tract infection): Code(s): N39.0 - Urinary tract infection, site not specified Status: Acute (5) Anemia: Code(s): D64.9 - Anemia, unspecified Status: Acute Plan Presents with shortness of breath. She has crackles, progressive lower extremity edema, elevated BNP. He does have a history of CHF and was taken off Lasix. Will obtain an echocardiogram, continue daily weights, strict intake/output. Believe most is is to be spurred on by worsening anemia. Transfuse 1 unit, give Lasix 40 mg IV x1 at the same time. Consult Hematology. Trend hemoglobin. She is currently on room air and breathing well while sitting in a chair. Consult PT/OT. Accu-Cheks a.c. HS. The patient wants to use her own glucose monitor and insulin pump, we discussed the benefits and risk of doing this. She signed the agreement plan. Check stool occult, she received IV iron infusion in the ER already. Patient reports her serum creatinine is about 2.5, is at her baseline. Continue to trend renal function and volume status. Troponin has peaked, chest pain, this is likely due to anemia. Viral screen is negative. Continue ceftriaxone and azithromycin a follow-up urine cultures. Resume [employer] lorazepam p.r.n.. Full code Monitor on telemetry. SCDs only, has anemia. Hospitalist MIPS Advance Care Plan I have confirmed that the patient's Advanced Care Plan is present, code status is documented, or surrogate decision maker is listed in patient medical record.: Yes Medication Reconciliation I have utilized all available resources to obtain, update and review the patients current medications (includes all prescriptions, OTC, herbals, cannabis, and nutritional supplements).: Yes
[2024-12-08] MEDS: ONDANSETRON INJ 4 MG/2 ML VIAL IV PUSH (21:02)
[2024-12-08] MEDS: AZITHROMYCIN 250 MG/NS 250 ML 250 MG/250 ML BAG IVPB (22:39)
[2024-12-09] VITALS (15 sets, daily range): BP systolic 115–130; BP diastolic 61–66; PULSE 81–103; RESP 16–24; TEMP 36.6–37.1; O2SAT 97–100
[2024-12-09] MEDS: cefTRIAXone 1 GM in SODIUM CHLORIDE 0.9% IV 50 ML 100 ML IVPB ×2 (00:30→22:07)
[2024-12-09] MEDS: guaiFENesin/CODEINE (*CRX) 200/20 MG 10 ML SYRUP PO ×3 (00:30→20:13)
[2024-12-09 04:51] LABS: Hematocrit 24.5 % (37.0-47.0); Immature Granulocyte Percent A 1.0 % (0-0.5); Lymphocytes Absolute Auto 1.16 K/mm3 (0.9-3.2); Mean Corpuscular HGB Conc 28.2 g/dl (32-36); Mean Corpuscular Hemoglobin 24.5 pg (26-34); Mean Corpuscular Volume 86.9 fl (80-100); Nucleated Red Blood Cells Absolute Auto 0.000 K/mm3 (0.0-0.012); Nucleated Red Blood Cells Perc 0.0 % (0.0-0.2); Platelet Count Result 314 k/mm3 (150-375); Red Blood Count 2.82 M/mm3 (4.2-5.4); White Blood Count 7.7 K/mm3 (4.5-10.0)
[2024-12-09 04:58] LABS: Hemoglobin 6.9 g/dL (12.0-15.0)
[2024-12-09 05:13] LABS: Anion Gap 8 mmol/L (4-12); Blood Urea Nitrogen 43 mg/dL (7-17); Calcium 8.1 mg/dL (8.4-10.2); Carbon Dioxide 19 mmol/L (22-30); Chloride 109 mmol/L (98-107); Estimated CRCL calculation 22 ml/min; Estimated Glomerular Filt Rate 19; Glucose 82 mg/dL (65-110); Magnesium 2.4 mg/dL (1.6-2.3); Potassium 4.8 mmol/L (3.4-5.0); Sodium 136 mmol/L (137-145)
[2024-12-09 05:16] LABS: Anisocytosis 1+; Hypochromasia 1+; Microcytosis 1+ (NORMAL)
[2024-12-09 05:17] LABS: Schistocytes None Seen
--- NOTE | 2024-12-09 05:42 | PC.NURSE ---
Vanessa from lab called to state that the patient does not have antibodies-but they can not confirm type A. Lab requests and emergent blood release be signed so that O Neg blood can be released and transfused. Dr Tello consents to transfusion of O Neg blood.
[2024-12-09] MEDS: ACETAMINOPHEN 500 MG TABLET 1000 MG PO ×3 (06:17→20:13)
[2024-12-09] MEDS: FUROSEMIDE INJ 40 MG/4 ML VIAL IV PUSH (06:17)
[2024-12-09] MEDS: SODIUM CHLORIDE 0.9% IV 250 ML 30 ML IV CONT ×2 (06:20→08:34)
--- NOTE | 2024-12-09 07:35 | PM.IMPN ---
Progress Note: A&P Assessment and Plan (1) Type 2 diabetes mellitus with hyperglycemia, with long-term current use of insulin: Code(s): E11.65 - Type 2 diabetes mellitus with hyperglycemia; Z79.4 - manager long term care (current) use of insulin Status: Acute (2) Chronic kidney disease, stage 3: Code(s): N18.30 - Chronic kidney disease, stage 3 unspecified Status: Acute (3) UTI (urinary tract infection): Code(s): N39.0 - Urinary tract infection, site not specified Status: Acute (4) Anemia: Code(s): D64.9 - Anemia, unspecified Status: Acute (5) SOB (shortness of breath): Code(s): R06.02 - Shortness of breath Status: Acute Plan 59-year-old female with a history of hypertension, hyperlipidemia, CKD stage 3, insulin-dependent diabetes mellitus, depression and anxiety, CAD, history of ST-elevation [place] status post POBA small caliber diagonal branch 05/08/2016, history of splenic infarct, polymyalgia rheumatica, untreated DOUG per the patient's wishes, presents with shortness of breath which has been steadily worsening over many weeks. She was told by her PCP she has low hemoglobin secondary to iron deficiency. She was scheduled for outpatient blood transfusion and iron infusion which she did not get yet. He also complained of dysuria on presentation and a cough of clear sputum production. Denied any chest pain. Reports she has a history of CHF but she was taken off of Lasix due to poor kidney function. She is concerned about worsening edema. She was taken off of metoprolol because it caused her to feel dizzy. In the ER she was given IV iron, she was given Rocephin and azithromycin. She had sinus tachycardia and elevated troponin but no significant ST changes on EKG. ----- Anemia: Receiving 1 unit PRBC on the morning of 12/09/2024, there was a delay. Hemoglobin 6.9 now, recheck hemoglobin 1 hour after infusion. Hematology consultation pending. Believe the majority of her symptoms to be due to worsening anemia. She has not really been up except to the bathroom and denies shortness of breath. After Lasix 40 mg IV x1 and 1 unit PRBC infusion encourage the patient to work with therapy and assess her shortness of breath. She agrees and is enthusiastic. Status post iron infusion in the ER. Continue ferrous sulfate 325 mg p.o. q.day. CKD stage IIIB: Patient reports her serum creatinine baseline is around 2.5-2.6. Continue to monitor with changes in volume status. Will not be too aggressive with diuresis. Heart failure: She was taken off Lasix sometime ago, concerned about her breathing, leg swelling. On presentation BNP 61824. Crackles on lungs, however saturating well on room air. Decompensation likely due to medication under management along with severe anemia. Elevated troponin likely due to demand ischemia, patient denied any chest pain. Peaked. EKG without significant ST changes. Lasix 40 mg IV x1 with blood transfusion. Monitor symptoms thereafter. Patient is particular about the medication she takes due to side effects, institute guideline directed medical therapy based on blood pressure, CKD, side effects. Does not want beta-daniel. UTI: Present on admission, complained of dysuria. Urinalysis indicative of infection. Follow urine culture. Continue ceftriaxone started 12/07/2024. Patient has a cough of clear mucus production, treat for possible pneumonia as well. Quad viral screen negative. Continue azithromycin, started on 12/07/2024. 12/07/2024 blood culture x2, no growth to date. Insulin-dependent diabetes mellitus: Patient wanted to use her glucose monitoring and insulin pump. Risks versus benefits discussed, she signed the agreement. Continue Accu-Cheks a.c. HS otherwise. CAD status post balloon angioplasty, hyperlipidemia: Continue Repatha on discharge. Hold Plavix due to anemia. ----- Full code Saline lock IV Heart healthy diabetic diet SCDs Subjective Date/time seen: 12/09/24 07:35 Interval history: No major acute overnight events. Patient could only tolerate the SCDs for about 5 hours, encouragement given to use them. She does not want to wear compression stockings because they are hard to take off. She denies any shortness of breath, any bladder pain, chest pain. She just got Lasix and 1 unit of blood has started. She still had cough with clear mucus production which greatly improved with the addition of guaifenesin codeine phosphate given overnight. Review of Systems Review of Systems: All systems reviewed & are unremarkable except as noted in HPI and below (Subjective) Exam Const: General: comfortable and no acute distress Other: A&O x3 HENMT: Mouth: Yes moist mucous membranes Eyes: Pupils: Equal, round and reactive pupils present Neck: Neck: supple Resp: Effort & Inspection: normal respiratory effort Auscultation: crackles Cardio: Rate: regular rate Rhythm: regular rhythm Heart sounds: no murmurs GI: Inspection: non-distended GI Palp: Yes Soft to palpation Neuro: Motor exam (neuro): 5/5 motor strength present throughout Extrem: Other: 1+ pitting edema bilateral lower extremities Psych: Mental Status: mental status grossly normal Objective Data Vital Signs Vital Signs: Vital Signs - 24 hr 12/08/24 07:50 12/08/24 08:00 12/08/24 08:00 Temperature 98.2 F Pulse Rate 98 96 Respiratory Rate 16 Blood Pressure 127/69 Pulse Oximetry 98 Oxygen Delivery Room Air 12/08/24 10:00 12/08/24 11:14 12/08/24 11:40 Temperature 98.3 F Pulse Rate 92 91 Respiratory Rate 22 H Blood Pressure 112/56 L Pulse Oximetry 100 Oxygen Delivery Room Air 12/08/24 11:56 12/08/24 12:00 12/08/24 14:00 Temperature 98.3 F Pulse Rate 91 93 90 Respiratory Rate 22 H Blood Pressure 112/56 L Pulse Oximetry 100 Oxygen Delivery 12/08/24 15:28 12/08/24 16:00 12/08/24 16:00 Temperature 98.4 F Pulse Rate 90 90 Respiratory Rate 24 H Blood Pressure 120/64 Pulse Oximetry 98 Oxygen Delivery Room Air 12/08/24 18:00 12/08/24 20:00 12/08/24 20:00 Temperature 98.3 F Pulse Rate 107 H 104 H 106 H Respiratory Rate 18 Blood Pressure 135/69 Pulse Oximetry 97 Oxygen Delivery 12/08/24 22:00 12/08/24 23:44 12/09/24 00:00 Temperature 98.4 F Pulse Rate 109 H 109 H 101 H Respiratory Rate 18 Blood Pressure 124/60 Pulse Oximetry 97 Oxygen Delivery 12/09/24 02:00 12/09/24 04:00 12/09/24 04:00 Temperature 98.4 F Pulse Rate 91 92 96 Respiratory Rate 16 Blood Pressure 130/64 Pulse Oximetry 100 Oxygen Delivery 12/09/24 06:00 12/09/24 06:33 12/09/24 06:52 Temperature 98.7 F 98.8 F Pulse Rate 96 95 91 Respiratory Rate 18 18 Blood Pressure 129/64 124/64 Pulse Oximetry 98 98 Oxygen Delivery Intake/Output Intake/Output: Intake & Output 12/06/24 12/07/24 12/08/24 12/09/24 23:59 23:59 23:59 23:59 Intake Total 1030 290 Output Total 950 550 Balance 80 -260 Meds/Results Medications: Active Medications Generic Name Dose Route Start Last Admin Trade Name Freq PRN Reason Stop Dose Admin Acetaminophen 1,000 mg 12/08/24 11:31 12/09/24 06:17 Acetaminophen 500 Mg Tablet PO 1,000 mg Q6H PRN Administration Mild Pain (1-3) or Fever Ferrous Sulfate 650 mg 12/09/24 09:00 Ferrous Sulfate 325 Mg Tablet PO DAILY LAQUITA Guaifenesin/Codeine Phosphate 10 ml 12/08/24 23:57 12/09/24 06:16 Guaifenesin/Codeine (*Crx) 200/20 Mg 10 Ml Syrup PO 10 ml Q6H PRN Administration Cough Ceftriaxone Sodium 1 gm/ 50 mls @ 100 mls/hr 12/08/24 23:00 12/09/24 01:40 Sodium Chloride IVPB Infused Q24H LAQUITA Infusion Azithromycin 250 mg in 250 mls @ 250 mls/hr 12/08/24 23:00 12/08/24 23:46 Zithromax IVPB Infused Q24H LAQUITA Infusion Sodium Chloride 250 mls @ 30 mls/hr 12/09/24 05:14 Normal Saline Iv IV CONT 12/09/24 13:33 .Q8H20M STA Insulin Human Regular 1 each 12/09/24 06:00 Home Medication Insulin XX DAILY@0600 LAQUITA Lorazepam 0.5 mg 12/08/24 17:47 Lorazepam (*Crx) 0.5 Mg Tablet PO DAILY PRN Anxiety Ondansetron HCl 4 mg 12/08/24 20:41 12/08/24 21:02 Ondansetron Inj 4 Mg/2 Ml Vial IV PUSH 4 mg Q6H PRN Administration Nausea And Vomiting Perflutren Lipid Microsphere 0 ml 12/08/24 20:12 Perflutren Lipid Microspheres 1.5 Ml Vial Diluted To 10 Ml Total Volume IV PUSH 12/11/24 20:12 ONCE PRN adequate visualization Protocol Radiology Results: ITS Impressions Chest X-Ray 12/08/24 05:55 IMPRESSION: 1. Bibasilar atelectasis and/or airspace disease, with small left pleural effusion. Labs Labs: Laboratory Results - last 24 hr 12/08/24 12/08/24 12/08/24 07:37 09:20 11:24 WBC 5.8 RBC 2.94 L Hgb 7.2 L Hct 25.1 L MCV 85.4 MCH 24.5 L MCHC 28.7 L RDW 16.9 H Plt Count 316 MPV 9.6 Immature Gran % (Auto) Neut % (Auto) Lymph % (Auto) [place] % (Auto) Eos % (Auto) Baso % (Auto) Lymph # (Auto) [place] # (Auto) Eos # (Auto) Baso # (Auto) Abs Immat Gran (auto) Absolute Neuts (auto) Absolute Nucleated RBC Band Neutrophils % Nucleated RBC % Platelet Estimate Hypochromasia Anisocytosis Microcytosis Schistocytes Sodium 137 Potassium 5.0 Chloride 109 H Carbon Dioxide 18 L Anion Gap 10 BUN 39 H Creatinine 2.60 H Estim Creat Clear Calc 22 Estimated GFR 19 L Glucose 164 H POC Capillary Glucose 138 H Calcium 8.2 L Magnesium 2.2 Total Bilirubin 0.4 AST 16 ALT 8 Alkaline Phosphatase 61 Troponin I 0.915 H* Total Protein 5.4 L Albumin 3.2 L Blood Type A Positive Antibody Screen Negative Crossmatch See Detail 12/08/24 12/08/24 12/08/24 11:33 16:01 18:50 WBC RBC Hgb 7.1 L Hct 24.6 L MCV MCH MCHC RDW Plt Count MPV Immature Gran % (Auto) Neut % (Auto) Lymph % (Auto) [place] % (Auto) Eos % (Auto) Baso % (Auto) Lymph # (Auto) [place] # (Auto) Eos # (Auto) Baso # (Auto) Abs Immat Gran (auto) Absolute Neuts (auto) Absolute Nucleated RBC Band Neutrophils % Nucleated RBC % Platelet Estimate Hypochromasia Anisocytosis Microcytosis Schistocytes Sodium Potassium Chloride Carbon Dioxide Anion Gap BUN Creatinine Estim Creat Clear Calc Estimated GFR Glucose POC Capillary Glucose 156 H 173 H Calcium Magnesium Total Bilirubin AST ALT Alkaline Phosphatase Troponin I 0.765 H* Total Protein Albumin Blood Type Antibody Screen Crossmatch 12/08/24 12/09/24 12/09/24 19:54 04:32 07:22 WBC 7.7 RBC 2.82 L Hgb 6.9 L* Hct 24.5 L MCV 86.9 MCH 24.5 L MCHC 28.2 L RDW 16.8 H Plt Count 314 MPV 10.0 Immature Gran % (Auto) 1.0 H Neut % (Auto) 74.0 H Lymph % (Auto) 15.0 L [place] % (Auto) 9.7 H Eos % (Auto) 0.0 Baso % (Auto) 0.3 Lymph # (Auto) 1.16 [place] # (Auto) 0.8 H Eos # (Auto) 0.0 Baso # (Auto) 0.0 Abs Immat Gran (auto) 0.08 H Absolute Neuts (auto) 5.7 Absolute Nucleated RBC 0.000 Band Neutrophils % Not Reportable Nucleated RBC % 0.0 Platelet Estimate Adequate Hypochromasia 1+ Anisocytosis 1+ Microcytosis 1+ Schistocytes None seen Sodium 136 L Potassium 4.8 Chloride 109 H Carbon Dioxide 19 L Anion Gap 8 BUN 43 H Creatinine 2.63 H Estim Creat Clear Calc 22 Estimated GFR 19 L Glucose 82 POC Capillary Glucose 172 H 102 Calcium 8.1 L Magnesium 2.4 H Total Bilirubin AST ALT Alkaline Phosphatase Troponin I Total Protein Albumin Blood Type Antibody Screen Crossmatch
[2024-12-09] MEDS: FERROUS SULFATE 325 MG TABLET PO (08:36)
--- NOTE | 2024-12-09 08:59 | PC.NURSE ---
SPoke with Dr Evangelista who gave order to only transfuse 1 unit and recheck labs an hour later
[2024-12-09 09:57] LABS: Hematocrit 26.0 % (37.0-47.0); Hemoglobin 7.7 g/dL (12.0-15.0)
--- NOTE | 2024-12-09 11:38 | PC.NURSE ---
Notified MD of HGB 7.7 no new orders at this time.
[2024-12-09] MEDS: AZITHROMYCIN 250 MG/NS 250 ML 250 MG/250 ML BAG IVPB (22:38)
[2024-12-10] VITALS (15 sets, daily range): BP systolic 110–131; BP diastolic 62–87; PULSE 78–92; RESP 14–20; TEMP 36.7–36.9; O2SAT 94–100
--- NOTE | 2024-12-10 | ECHO_ITS ---
Patient Info Name: Rosanne May Age: 59 years : 1965 Gender: Female Ht: 65 in Wt: 179 lbs BSA: 1.95 m2 HR: 79 bpm BP: 128 / 73 mmHg Heart Rhythm: Sinus Rhythm Technical Quality: Good Exam Date: 12/10/2024 11:37 AM Patient Status: I Admit Date: 12/08/2024 Exam Type: CA echo dop color flow w con Complete two-dimensional, color flow and Doppler transthoracic echocardiogram is performed with contrast to opacify the left ventricle and to improve the deliniation of the left ventricle endocardial borders. Staff Referring Physician: Uri Byrd Corporate Tax Preparer: Kaur Butcher Attending Provider: Bailey Tello DO Contrast/Agitated Saline Contrast/Ag. Saline: Definity Amount: 2.00 ml Administered By: Kaur Butcher Existing IV Access: Yes IV Access Condition: patent with no signs of infiltration Summary 1. Left ventricular systolic function is moderately reduced, estimated at 30-35. 2. The left ventricular diastolic function is grade III diastolic dysfunction. 3. Left atrial chamber dimension is mildly enlarged. 4. There is trace aortic valve regurgitation. 5. There is mild mitral valve regurgitation. 6. There is trace tricuspid valve regurgitation. 7. Moderate pulmonary hypertension, estimated pulmonary arterial systolic pressure is 49 mmHg. 8. There is trace pulmonic regurgitation. Left Ventricle Left ventricular chamber dimension is normal. Left ventricular systolic function is moderately reduced, estimated at 30-35. There is no increased left ventricular wall thickness. The left ventricular diastolic function is grade III diastolic dysfunction. Right Ventricle Right ventricular chamber dimension is normal. Right ventricular systolic function is normal. Left Atria Left atrial chamber dimension is mildly enlarged. Right Atria Right atrial chamber dimension is normal. Aortic Valve The aortic valve is trileaflet. There is no aortic valve sclerosis. There is no aortic valve stenosis. There is trace aortic valve regurgitation. There is mild aortic valve calcification. Pulmonic Valve The pulmonic valve is normal. There is no pulmonic valve stenosis. There is trace pulmonic regurgitation. Mitral Valve The mitral valve has normal leaflets. There is no mitral valve stenosis. There is mild mitral valve regurgitation. Tricuspid Valve The tricuspid valve leaflets are normal. There is no significant tricuspid valve stenosis. There is trace tricuspid valve regurgitation. Moderate pulmonary hypertension, estimated pulmonary arterial systolic pressure is 49 mmHg. Pericardium/Pleural The pericardium appears normal. There is no pericardial effusion. Inferior Vena Cava Normal inferior vena cava with <50% collapse upon inspiration consistent with elevated right atrial pressure, 10 mmHg. Aorta The aortic root size at the sinus of Valsalva is normal. The prox ascending aorta size is normal. Left Ventricular Outflow Tract Name Value Normal LVOT 2D LVOT Diameter 2.0 cm LVOT Doppler LVOT Peak Velocity 89 cm/s LVOT Peak Gradient 3 mmHg LVOT Mean Gradient 2 mmHg LVOT VTI 15 cm LVOT VTI/AV VTI Ratio 0.7 LVOT Stroke Volume 46 ml LVOT CO 3.9 l/min LVOT CI 2.0 l/min/m2 Pulmonic Valve Name Value Normal RVOT Doppler RVOT Peak Velocity 73 cm/s RVOT Peak Gradient 2 mmHg PV Doppler PV Peak Velocity 103 cm/s PV Peak Gradient 4 mmHg Mitral Valve Name Value Normal MV Diastolic Function MV E Peak Velocity 103 cm/s MV A Peak Velocity 81 cm/s MV E/A 1.3 MV Decel Time (PW) 167 ms MV Annular TDI MV E/e' (Septal) 26.6 MV E/e' (Lateral) 34.2 MV E/e' (Average) 30.4 Tricuspid Valve Name Value Normal TV Regurgitation Doppler TR Peak Velocity 313 cm/s TR Peak Gradient 35 mmHg Estimated PAP/RSVP RA Pressure 10 mmHg <=5 PA Systolic Pressure 49 mmHg <36 RV Systolic Pressure 49 mmHg <36 TV Annular TDI TV Lateral Radha s' Velocity 8.4 cm/s >=9.5 Aorta Name Value Normal Ascending Aorta Ao Root Diameter (MM) 3.2 cm Ao Root Diam Index (MM) 1.6 cm/m2 Aortic Valve Name Value Normal AV Doppler AV Peak Velocity 129 cm/s AV Peak Gradient 7 mmHg AV Mean Gradient 4 mmHg AV VTI 20 cm AV Area (Cont Eq VTI) 2.3 cm2 >=3.0 AV Area (Cont Eq Dagoberto) 2.1 cm2 AV DI (Dagoberto) 0.69 AV Regurgitation 2D LVOT Area 3.0 cm2 Ventricles Name Value Normal LV Dimensions 2D/MM IVS Diastolic Thickness (2D) 1.0 cm 0.6-1.0 LVID Diastole (2D) 5.5 cm 3.8-5.2 LVIW Diastolic Thickness (2D) 1.0 cm 0.6-0.9 LVID Systole (2D) 4.5 cm 2.2-3.5 LVOT Diameter 2.0 cm LV Mass (2D Cubed) 220.70 g 67.00-162.00 LV Mass Index (2D Cubed) 113 g/m2 43-95 Relative Wall Thickness (2D) 0.38 <=0.42 LV Fractional Shortening/Ejection Fraction 2D/MM LV Fractional Shortening (2D) 18 % 27-45 LV EF (2D Teichholz) 38 % LV Diastolic Volume (4C MOD) 139 ml LV EF (4C MOD) 36 % LV Diastolic Volume (2C MOD) 143 ml LV EF (2C MOD) 39 % LV Diastolic Volume (BP MOD) 142 ml 46-106 LV Diastolic Volume Index (BP MOD) 73 ml/m2 29-61 LV Systolic Volume (BP MOD) 89 ml 14-42 LV Systolic Volume Index (BP MOD) 45 ml/m2 8-24 LV EF (BP MOD) 37 % 54-74 LV Diastolic Length (4C) 8.6 cm LV Systolic Length (4C) 7.9 cm LV Stroke Volume (4C MOD) 50 ml Atria Name Value Normal LA Dimensions LA Dimension (MM) 4.8 cm 2.7-3.8 LA Volume (4C A-L) 93 ml LA Volume (BP A-L) 87 ml RA Dimensions RA Area (4C) 16.6 cm2 <=18.0 Report Signatures
[2024-12-10] MEDS: ACETAMINOPHEN 500 MG TABLET 1000 MG PO (04:26)
[2024-12-10] MEDS: guaiFENesin/CODEINE (*CRX) 200/20 MG 10 ML SYRUP PO ×3 (04:27→20:55)
[2024-12-10 04:40] LABS: Hematocrit 26.8 % (37.0-47.0); Hemoglobin 7.9 g/dL (12.0-15.0); Immature Granulocyte Percent A 0.7 % (0-0.5); Lymphocytes Absolute Auto 1.05 K/mm3 (0.9-3.2); Mean Corpuscular HGB Conc 29.5 g/dl (32-36); Mean Corpuscular Hemoglobin 25.8 pg (26-34); Mean Corpuscular Volume 87.6 fl (80-100); Nucleated Red Blood Cells Absolute Auto 0.000 K/mm3 (0.0-0.012); Nucleated Red Blood Cells Perc 0.0 % (0.0-0.2); Platelet Count Result 278 k/mm3 (150-375); Red Blood Count 3.06 M/mm3 (4.2-5.4); White Blood Count 5.6 K/mm3 (4.5-10.0)
[2024-12-10] MEDS: HOME MEDICATION INSULIN 1 EACH XX (05:12)
[2024-12-10 05:18] LABS: Anion Gap 7 mmol/L (4-12); Blood Urea Nitrogen 50 mg/dL (7-17); Calcium 8.3 mg/dL (8.4-10.2); Carbon Dioxide 20 mmol/L (22-30); Chloride 109 mmol/L (98-107); Estimated CRCL calculation 19 ml/min; Estimated Glomerular Filt Rate 15; Glucose 86 mg/dL (65-110); Magnesium 2.5 mg/dL (1.6-2.3); Potassium 5.3 mmol/L (3.4-5.0); Sodium 136 mmol/L (137-145)
--- NOTE | 2024-12-10 09:18 | P.PNIM_ITS ---
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 Nicole at [place]), insulin-dependent diabetes mellitus, depression and anxiety, CAD, history of ST-elevation [place] status post POBA small caliber diagonal branch 05/08/2016, history of splenic infarct, polymyalgia rheumatica, untreated DOUG per the patient's wishes, presents with shortness of breath which has been steadily worsening over many weeks. She was told by her PCP she has low hemoglobin secondary to iron deficiency. She was scheduled for outpatient blood transfusion and iron infusion which she did not get yet. She also complained of dysuria on presentation and a cough of clear sputum production. Denied any chest pain. Thinks she had heart failure but never diagnosed, she was taken off lasix some time ago and is concerned about worsening leg swelling. She was taken off of b-blockers because they caused dizziness and doesn't want to go back on. In the ER she was given IV iron, she was given Rocephin and azithromycin. She had sinus tachycardia and elevated troponin but no significant ST changes on EKG. ----- Acute on chronic anemia: Suspected to be iron deficiency in the outpatient setting. 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 Iron and TIBC low, ferritin high although. Received IV iron on admission. Hemoglobin was 7.6. Hemoglobin dropped to 6.9, status post 1 unit PRBC on 12/09/2028. Continue daily hemoglobin monitoring. Check stool occult. Continue ferrous sulfate at 325 mg p.o. q.day. hematology consult. Shortness of breath: Improved, she is working well with therapy. Recommend outpatient therapy. Community-acquired pneumonia versus fluid overload. More likely fluid overload. Pulmonary edema: Patient tells me she thinks she has heart failure in the past but it was never diagnosed. She was taken off of Lasix and on presentation her swelling was worse. She now has swelling in her hands and persistent cough with mucousy sputum after 1 unit PRBC with Lasix 40 mg IV x1. She is net positive 1.5 L since admission. TTE ordered. Continue daily weights and strict intake/output. Discussed with nursing. Start Lasix 40 mg IV b.i.d.. BNP 36568 on admission. This could be due to worsening renal function as well. At the same time, consult Nephrology. ANDRES and CKD: Patient tells me her baseline is 2.2. Presented with serum creatinine 2.5, on 12/10/2024 serum creatinine 3.0. Could be due to low effective circulating volume due to fluid overload versus UTI versus severe anemia. Start Lasix 40 mg IV b.i.d., consult Nephrology. Repeat BMP at 6:15 p.m. Hyperkalemia: 5.3 on 12/10/2024. Give Lokelma 5 mg p.o. x1. Starting Lasix. Recheck BMP at 6:15 p.m. UTI: Present on admission, complained of dysuria. Urinalysis indicative of infection. Follow urine culture. Continue ceftriaxone started 12/07/2024. Patient has a cough of clear mucus production, treat for possible pneumonia as well. Quad viral screen negative. Continue azithromycin, started on 12/07/2024. 12/07/2024 blood culture x2, no growth to date. She is no longer reporting dysuria Insulin-dependent diabetes mellitus: Patient wanted to use her glucose monitoring and insulin pump. Risks versus benefits discussed, she signed the agreement. Continue Accu-Cheks a.c. HS otherwise. CAD status post balloon angioplasty, hyperlipidemia: Continue Repatha on discharge. Hold Plavix due to anemia. ----- Full code Saline lock IV Strict intake/output, daily weights. Heart healthy diabetic diet SCDs Time Spent With Patient Time with patient: Greater than 35 minutes Subjective Date/time seen: 12/10/24 09:18 Interval history: No major acute overnight events. She has worked with therapy. Denies shortness of breath but she still has coughing fits and producing clear mucousy sputum. She thinks her lower extremity edema is worse as well as now has falling in her hands. Review of Systems Review of Systems: All systems reviewed & are unremarkable except as noted in HPI and below (Subjective) Exam Const: General: comfortable and no acute distress Other: A&O x3 HENMT: Mouth: Yes moist mucous membranes Eyes: Pupils: Equal, round and reactive pupils present Neck: Neck: supple Resp: Effort & Inspection: normal respiratory effort Auscultation: crackles Cardio: Rate: regular rate Rhythm: regular rhythm GI: Inspection: non-distended GI Palp: Yes Soft to palpation Neuro: Motor exam (neuro): 5/5 motor strength present throughout Extrem: Other: 1+ pitting edema bilateral hands, 2+ pit ting edema bilateral lower extremities below the knees Psych: Mental Status: mental status grossly normal Objective Data Vital Signs Vital Signs: Vital Signs - 24 hr 12/09/24 09:47 12/09/24 10:00 12/09/24 12:00 Temperature 98.1 F Pulse Rate 103 H 88 Respiratory Rate 24 H Blood Pressure 118/61 Pulse Oximetry 100 Oxygen Delivery Room Air 12/09/24 12:00 12/09/24 12:00 12/09/24 12:22 Temperature Pulse Rate 87 Respiratory Rate Blood Pressure Pulse Oximetry Oxygen Delivery Room Air Room Air 12/09/24 14:00 12/09/24 16:00 12/09/24 16:00 Temperature Pulse Rate 85 83 Respiratory Rate Blood Pressure Pulse Oximetry Oxygen Delivery Room Air 12/09/24 16:00 12/09/24 20:00 12/09/24 20:00 Temperature 98.0 F 98.4 F Pulse Rate 81 85 87 Respiratory Rate 20 16 Blood Pressure 115/66 123/65 Pulse Oximetry 99 98 Oxygen Delivery 12/09/24 22:00 12/10/24 00:00 12/10/24 00:00 Temperature 98.3 F Pulse Rate 91 86 91 Respiratory Rate 20 Blood Pressure 121/67 Pulse Oximetry 100 Oxygen Delivery 12/10/24 02:00 12/10/24 04:00 12/10/24 04:20 Temperature 98.0 F Pulse Rate 78 84 78 Respiratory Rate 14 Blood Pressure 128/73 Pulse Oximetry 98 Oxygen Delivery 12/10/24 06:00 12/10/24 08:00 Temperature 98.5 F Pulse Rate 79 92 Respiratory Rate 20 Blood Pressure 122/87 Pulse Oximetry 99 Oxygen Delivery Intake/Output Intake/Output: Intake & Output 12/07/24 12/08/24 12/09/24 12/10/24 23:59 23:59 23:59 23:59 Intake Total 1030 1710 300 Output Total 950 550 Balance 80 1160 300 Meds/Results Medications: Active Medications Generic Name Dose Route Start Last Admin Trade Name Freq PRN Reason Stop Dose Admin Acetaminophen 1,000 mg 12/08/24 11:31 12/10/24 04:26 Acetaminophen 500 Mg Tablet PO 1,000 mg Q6H PRN Administration Mild Pain (1-3) or Fever Artificial Tears 1 drop 12/09/24 15:34 Artificial Tears Ophth Soln 15 Ml Bottle EACH EYE QID PRN Dry Eye(s) Ferrous Sulfate 325 mg 12/09/24 09:00 12/09/24 08:36 Ferrous Sulfate 325 Mg Tablet PO 325 mg DAILY LAQUIAT Administration Furosemide 40 mg 12/10/24 09:15 Furosemide Inj 40 Mg/4 Ml Vial IV PUSH BID LAQUITA Guaifenesin/Codeine Phosphate 10 ml 12/08/24 23:57 12/10/24 04:27 Guaifenesin/Codeine (*Crx) 200/20 Mg 10 Ml Syrup PO 10 ml Q6H PRN Administration Cough Ceftriaxone Sodium 1 gm/ 50 mls @ 100 mls/hr 12/08/24 23:00 12/09/24 22:42 Sodium Chloride IVPB Infused Q24H LAQUITA Infusion Azithromycin 250 mg in 250 mls @ 250 mls/hr 12/08/24 23:00 12/10/24 04:23 Zithromax IVPB Infused Q24H LAQUITA Infusion Insulin Human Regular 1 each 12/09/24 06:00 12/10/24 05:12 Home Medication Insulin XX 1 each DAILY@0600 LAQUITA Administration Lorazepam 0.5 mg 12/08/24 17:47 Lorazepam (*Crx) 0.5 Mg Tablet PO DAILY PRN Anxiety Ondansetron HCl 4 mg 12/08/24 20:41 12/08/24 21:02 Ondansetron Inj 4 Mg/2 Ml Vial IV PUSH 4 mg Q6H PRN Administration Nausea And Vomiting Perflutren Lipid Microsphere 0 ml 12/08/24 20:12 Perflutren Lipid Microspheres 1.5 Ml Vial Diluted To 10 Ml Total Volume IV PUSH 12/11/24 20:12 ONCE PRN adequate visualization Protocol Sodium Zirconium Cyclosilicate 5 gm 12/10/24 09:20 Sodium Zirconium Cyclosilicate 5 Gm Powd.Pack PO 12/10/24 09:21 ONCE ONE Radiology Results: ITS Impressions Chest X-Ray 12/08/24 05:55 IMPRESSION: 1. Bibasilar atelectasis and/or airspace disease, with small left pleural effusion. Labs Labs: Laboratory Results - last 24 hr 12/08/24 12/09/24 12/09/24 11:24 09:53 11:25 WBC RBC Hgb 7.7 L Hct 26.0 L MCV MCH MCHC RDW Plt Count MPV Immature Gran % (Auto) Neut % (Auto) Lymph % (Auto) Cooper % (Auto) Eos % (Auto) Baso % (Auto) Lymph # (Auto) Cooper # (Auto) Eos # (Auto) Baso # (Auto) Abs Immat Gran (auto) Absolute Neuts (auto) Absolute Nucleated RBC Nucleated RBC % Sodium Potassium Chloride Carbon Dioxide Anion Gap BUN Creatinine Estim Creat Clear Calc Estimated GFR Glucose POC Capillary Glucose 118 H Calcium Magnesium Crossmatch See Detail 12/09/24 12/09/24 12/10/24 15:45 19:56 04:13 WBC 5.6 RBC 3.06 L Hgb 7.9 L Hct 26.8 L MCV 87.6 MCH 25.8 L D MCHC 29.5 L RDW 16.9 H Plt Count 278 MPV 10.0 Immature Gran % (Auto) 0.7 H Neut % (Auto) 69.4 Lymph % (Auto) 18.9 Cooper % (Auto) 10.6 H Eos % (Auto) 0.0 Baso % (Auto) 0.4 Lymph # (Auto) 1.05 Cooper # (Auto) 0.6 Eos # (Auto) 0.0 Baso # (Auto) 0.0 Abs Immat Gran (auto) 0.04 H Absolute Neuts (auto) 3.9 Absolute Nucleated RBC 0.000 Nucleated RBC % 0.0 Sodium 136 L Potassium 5.3 H Chloride 109 H Carbon Dioxide 20 L Anion Gap 7 BUN 50 H Creatinine 3.07 H Estim Creat Clear Calc 19 Estimated GFR 15 L Glucose 86 POC Capillary Glucose 98 87 Calcium 8.3 L Magnesium 2.5 H Crossmatch 12/10/24 12/10/24 04:34 07:23 WBC RBC Hgb Hct MCV MCH MCHC RDW Plt Count MPV Immature Gran % (Auto) Neut % (Auto) Lymph % (Auto) Cooper % (Auto) Eos % (Auto) Baso % (Auto) Lymph # (Auto) Cooper # (Auto) Eos # (Auto) Baso # (Auto) Abs Immat Gran (auto) Absolute Neuts (auto) Absolute Nucleated RBC Nucleated RBC % Sodium Potassium Chloride Carbon Dioxide Anion Gap BUN Creatinine Estim Creat Clear Calc Estimated GFR Glucose POC Capillary Glucose 83 106 H Calcium Magnesium Crossmatch
--- NOTE | 2024-12-10 09:25 | P.CONNP_ITS ---
Assessment and Plan Assessment and plan (1) Acute kidney injury: Code(s): N17.9 - Acute kidney failure, unspecified Status: Acute Assessment and Plan: * as note by admission creatinine (creatinine 2.63mg/dL) * worsening noted by labs today (3.07mg/dL) * suspect several issues playing a role: * anemia * urinary tract infection * CHF/volume overload * need for IV diuretics * possible progression of disease (?) * random fluctuations in CKD due to acute illness... * other (?) * follow trend of repeat labs and UOP (2) Stage 4 chronic kidney disease: Code(s): N18.4 - Chronic kidney disease, stage 4 (severe) Status: Chronic Assessment and Plan: * baseline creatinine runs around 2.0 - 2.4mg/dl * slow decline over last the 3 years due disease progression along withrecurrent episodes of ANDRES, some of which linked to excess Lasix use, Bactrim use. and other medications (i.e. azathioprine) * off SGLT2 inhibtors due to frequent UTIs * last outpatinet creatinine 2.20mg/dl in October 2024 * due to hypertension and diabetes mellitus * well informed of her kidney disease - she is aware of the need for good glycemic and blood pressure control as well as adequate hydration * follows with Dr. Pepe Nicole at [facility] (3) SOB (shortness of breath): Code(s): R06.02 - Shortness of breath Status: Acute Assessment and Plan: * seems stable if not better * several issues contributing: * anemia * pleural effusion * CHF (?) * pneumonia(?) * other (?) * continue current therapy as outlined (4) Anemia: Code(s): D64.9 - Anemia, unspecified Status: Acute Assessment and Plan: * was scheduled for outpatient PRBC transfusion + IV iron * evidence of iron deficiency by October 2024 labs * s/p PRBC transfusion (1 unit to date) * would consider DORITA as well * follow trend of H/H (5) CHF (congestive heart failure): Code(s): I50.9 - Heart failure, unspecified Status: Acute Assessment and Plan: * no reported history but does have known CKD * was on lasix PRN for LE edema * last Echo (August 2023) noted: * normal global left ventricular systolic function * ejection fraction is measured at 66 % * impaired diastolic relaxation Grade I * no significant valvular dysfunction * repeat Echo ordered (6) UTI (urinary tract infection): Code(s): N39.0 - Urinary tract infection, site not specified Status: Acute Assessment and Plan: * admission UA suggestive * however, urine culture noted (negative) * on antibiotics (7) Essential hypertension: Code(s): I10 - Essential (primary) hypertension Status: Chronic Assessment and Plan: * reasonable control * losartan on hold (due to #1) * follow trend of hemodynamics (8) Type 2 diabetes mellitus with chronic kidney disease: Code(s): E11.22 - Type 2 diabetes mellitus with diabetic chronic kidney disease Status: Chronic Assessment and Plan: * follow accu-cheks * glycemic control per hospitalist I will continue to follow the patient with you while she remains hospitalized and make further recommendations as deemed necessary. Thank you for allowing me to participate in the care of this patient. L History of Present Illness Reason for Consult Consult date: 12/10/24 Reason for consult: acute renal failure (on chronic kidney disease) Chief Complaint Chief complaint: Sepsis, UTI, Pneumonia, CHF, NSEMI History of Present Illness Narrative: The patient is a 59-year-old female with a past medical history as outlined below who presented to [facility] Emergency Room with complaints of shortness of breath. She states that her shortness of breath has been progressively worsening over last several weeks and is particularly worse with exertional activities. She was apparently told that she had issues with anemia thought to be secondary to iron deficiency and was scheduled for outpatient iron infusions in effort to correct this issue and possibly help improve her anemia and possibly her breathing. In spite of the shortness of breath, she denies any other symptoms with regard to chest pain, nausea, vomiting, diarrhea, palpitations, dizziness, or lightheadedness although she does report some issues with dysuria. Furthermore, she was also noted that in the last few weeks that she has increasing /worsening lower extremity swelling/edema. She has been on Lasix in the past for this issue but usually takes it on an as-needed basis but seems that with holding the Lasix therapy, the swelling/lower side edema seems to have worsened. Given these constellation of symptoms as mentioned, she presented to the emergency room for further assessment Workup and evaluation emergency room demonstrated the patient be hemodynamically stable and with a low-grade temperature of a 100.0?. Routine testing demonstrated a white blood cell count of 6.7, hemoglobin 7.6 hematocrit 25.6 and a platelet count of 315 with a sodium of 137, potassium 4.6 chloride 110, bicarb 17, BUN 38, creatinine 2.63 with a glucose of 114, calcium 8.2, normal LFTs, proBNP greater than 30,000, albumin of 3.2, and lactic acid of 1.0. Viral testing for influenza, RSV, and COVID were negative. Her urinalysis was significant for 3+ protein trace ketones, trace blood, positive nitrates, 1+ leukocyte esterase, and 4+ bacteria. Her initial troponin was mildly elevated but her EKG did not demonstrate any evidence of acute ischemia. Her chest x-ray showed bibasilar atelectasis and/or airspace disease with a small left pleural effusion. In the emergency room, she received IV iron and was started on antibiotics for possible pneumonia after appropriate cultures were obtained and she was subsequently admitted to the hospital for further evaluation therapy. Since her admission, her renal function has been slowly deteriorating although it should be noted that she has been initiated on diuretic therapy for the suspicion of a CHF exacerbation. Renal consultation was requested due to her acute kidney injury/acute renal failure on top of her baseline chronic kidney disease. The patient has known chronic kidney disease secondary to her diabetes and hypertension with a baseline creatinine normally runs around 2.0-2.4 mg/dL and is followed by Dr. Cantu or office at [facility]. On her last office visit with Dr. Nicole, it was recommended that she use her diuretics sparingly due to her fluctuating kidney function which the patient has been doing religiously. However, as mentioned above, with using her diuretics sparingly, she has noticed increasing LE swelling/edema as well as the shortness of breath. Her creatinine has worsened from 2.63 mg/dL on admission up to 2.6, than 3.07 by labs done this morning. Currently, at the time my evaluation, she does not appear to be in any acute distress. Review of Systems 2 Review of Systems: As per HPI. [facility] Past Medical History Medical History (Updated 12/10/24 @ 19:12 by Cheikh Ackerman MD) History of [place] (myocardial infarction) Anemia Coronary artery disease Depression Anxiety Insulin dependent type 2 diabetes mellitus Hyperlipidemia Chronic kidney disease, stage 3 Bilateral primary osteoarthritis of knee Essential hypertension Surgical History Surgical History History of radial keratotomy History of coronary angioplasty History of section History of cardiac catheterization (2014) History of hip surgery (2018) ORIF right hip for IT fx Family History Family History Father Family history of heart disease in male family member before age 55 Family history of coronary artery disease Hypertension Grandparent Diabetes mellitus Cerebrovascular accident Mother Family history of heart disease in male family member before age 55 Family history of arthritis Endometrial cancer Social History Social History Social History: Surrogate medical decision maker: Louis May, spouse. Code status: Full code. Smoking status: Never smoker Second hand tobacco smoke exposure: No Alcohol intake: current Drinks per week: 1 Substance use: never Substance use type: does not use Do You Feel Safe in your Home?: Yes Lack of Transportation: No Lack of Food: Never True Current Housing: I Have Housing Concerned About Future Housing: No Difficulty Paying Gas/Electric Bills: No Difficulty Paying for Meds: No Currently Unemployed: No Education: Bachelor's Degree Difficulty w/ Childcare or Family Care: No Living arrangements: with family Additional living arrangements comments: Lives with in [place]. 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: No Agree to blood products: Yes Meds Home Medications and Allergies Home Medications ?Medication ?Instructions ?Recorded ?Confirmed ?Type clopidogrel 75 mg tablet 75 mg PO DAILY 08/01/1911/13 History subcutaneous insulin pump (MiniMed #1 ea 08/03/1911/13 History 630G Insulin Pump) insulin aspart U-100 100 unit/mL See Rx Instructions s ubcut 02/06/20 12/08/24 Rx subcutaneous solution (Novolog USEASDIRECTD 90 days #9 0 mL U-100 Insulin aspart) ferrous sulfate 325 mg (65 mg 650 mg PO DAILY 07/22/22 12/08/24 History iron) tablet (FeroSul) lorazepam 0.5 mg tablet 0.5 mg PO DAILY PRN Anxiety #30 01/10/23 12/08/24 Rx tabs blood-glucose transmitter (Dexcom 01/29/23 12/08/24 H istory G6 Transmitter device) tramadol 50 mg tablet See Rx Instructions PO QID P RN 02/07/24 12/08/24 Rx pain #60 tabs nystatin 100,000 unit/gram topical 1 applic topical QI D 05/20/24 12/08/24 History powder (Klayesta) losartan 100 mg tablet See Rx Instructions .Route 0 11/29/24 12/08/24 Rx .COMPLEX #90 tabs ondansetron 4 mg disintegrating 4 mg PO Q8H PRN nausea and 11/29/24 12/08/24 Rx tablet vomiting #20 tabs Tylenol Extra Strength 650 mg PO Q8H PRN pain 12/0812/08/24 History ergocalciferol (vitamin D2) 1,250 50,000 unit PO WEEKL Y 12/08/24 12/08/24 History mcg (50,000 unit) capsule evolocumab 420 mg/3.5 mL 420 mg subcut .BIWEEKLY 11/1312/08/24 History subcutaneous wearable injector (Repatha Pushtronex) Allergies Allergy/AdvReac Type Severity Reaction Status Date / Time levofloxacin (From Levaquin) Allergy Severe Swelling Verified 12/07/24 22:54 of Lip/Tongue/Throat itraconazole AdvReac Mild Itching Verified 12/07/24 22:54 terbinafine (From Lamisil) AdvReac Mild HOT FLASHES Verified 12/10/24 15:10 Vital Signs Vital Signs Temp Pulse Resp BP Pulse Ox O2 Del Method 12/10/24 08:00 Room Air 12/10/24 08:00 98.5 F 92 20 122/87 99 12/10/24 06:00 79 12/10/24 04:20 78 12/10/24 04:00 98.0 F 84 14 128/73 98 12/10/24 02:00 78 12/10/24 00:00 98.3 F 91 20 121/67 100 12/10/24 00:00 86 12/09/24 22:00 91 12/09/24 20:00 87 12/09/24 20:00 98.4 F 85 16 123/65 98 12/09/24 16:00 98.0 F 81 20 115/66 99 12/09/24 16:00 83 12/09/24 16:00 Room Air 12/09/24 14:00 85 12/09/24 12:22 Room Air 12/09/24 12:00 87 12/09/24 12:00 Room Air 12/09/24 12:00 98.1 F 88 24 H 118/61 100 Exam 2 Narrative: GENERAL APPEARANCE: well developed well nourished emale in no acute distress HEENT: normocephalic, atraumatic, normal conjunctiva and sclera, nares patient NECK: no lymphadenopathy, thyromegaly, or JVD MOUTH: normal lips, teeth, and gums CARDIOVASCULAR: RRR, normal S1 and S2, no rub RESPIRATORY: clear anteriorly; decreased at bases ABDOMEN: soft, nontender, nondistended, positive bowel sounds present EXTREMITIES: no evidence of cyanosis, clubbing, 2+ edema NEUROLOGICAL: alert and oriented x 3; CN II - XII intact bilaterally; no focal deficits noted Results Lab Results 12/11/24 04:04 12/11/24 04:04 Lab results: Most recent lab results Calcium 8.3 mg/dL (8.4-10.2) L 12/10/24 04:13 Magnesium 2.5 mg/dL (1.6-2.3) H 12/10/24 04:13
[2024-12-10] MEDS: FERROUS SULFATE 325 MG TABLET PO (09:49)
[2024-12-10] MEDS: SODIUM ZIRCONIUM CYCLOSILICATE 5 GM POWD.PACK PO (09:49)
[2024-12-10] MEDS: FUROSEMIDE INJ 40 MG/4 ML VIAL IV PUSH ×2 (09:49→17:17)
[2024-12-10] MEDS: PERFLUTREN LIPID MICROSPHERES 1.5 ML VIAL DILUTED TO 10 ML TOTAL VOLUME IV PUSH (11:50)
[2024-12-10] MEDS: ONDANSETRON INJ 4 MG/2 ML VIAL IV PUSH (12:43)
--- NOTE | 2024-12-10 12:59 | IVDEFINITY ---
Prior to administration of IV Definity the patient was educated on the risks and benefits of the imaging enhancing agent including potential adverse side effects. The patient verbalized understanding. Allergies were verified. No exclusion criteria were identified and at least one of the following inclusion criteria were met: 1) physician request, 2) patient technically difficult to image (per the [place] [employer] Echocardi[employer] guidelines of two or more segments not discernable within the apical view), or 3) questionable left ventricular function. ?
[2024-12-10] MEDS: BENZONATATE 100 MG CAPSULE PO (17:17)
--- NOTE | 2024-12-10 18:56 | WPDONCCN ---
Assessment and Plan Assessment and plan (1) Anemia: Code(s): D64.9 - Anemia, unspecified Status: Acute Assessment and Plan: Patient is a 59-year-old female with history of polymyalgia rheumatica, chronic kidney stage 3 disease, hypertension and diabetes came into the hospital with shortness of breath and generalized weakness. Labs showed hemoglobin of 6.9 with B12 level of 282. Creatinine was 3.0. Iron studies were consistent with anemia of chronic kidney disease. Patient received 1 unit of packed red blood cell. Erythropoietin level was normal at 12.9. I will order soluble transferrin receptor. Patient will continue oral iron once a day. Will start Procrit 22939 units on a biweekly basis. I will also start vitamin B12 1 mg daily at home and will give 1 mg of vitamin B12 injection in the hospital. I will check serum protein electrophoresis. No need for bone marrow biopsy. She will follow-up in the office. HPI Data of Consult Date/Time: 12/10/24 18:56 Requesting Physician: Bailey Tello DO Primary Care Provider: Cheikh Ackerman MD Consult Narrative Narrative: Rosanne May is a 59 year old female with history of stage 3 chronic kidney disease, insulin-dependent diabetes, coronary artery disease and hypertension came into the hospital with shortness of breath. She was on steroid 50 mg a day for couple of years for polymyalgia rheumatica there was discontinued in April of 2024. Patient has been having some difficulty with the tiredness and fatigue and weakness in the upper extremity since the steroid was discontinued. She came into the hospital with worsening of shortness of breath along with tiredness and fatigue. She denies any bleeding including melena hematochezia. She denies any previous stomach surgeries. She denies being a vegetarian. She has been taking oral iron once a day at home. Labs showed hemoglobin of 6.9. Creatinine was 3.0 with GFR of 15 and vitamin B12 of 282. Erythropoietin level was 12.9 iron was 28 with iron saturation of 14% and ferritin of 331. Her baseline creatinine is about 2.25 with kidney function of about 30-35%. She believes her kidney disease due to diabetes and hypertension. Review of Systems Review of Systems: Twelve point review of system was reviewed [facility] Past Medical History Medical History (Updated 12/10/24 @ 12:15 by Brie Mesa MD) History of [place] (myocardial infarction) Anemia Bilateral primary osteoarthritis of knee Coronary artery disease Depression Anxiety Insulin dependent type 2 diabetes mellitus Hyperlipidemia Chronic kidney disease, stage 3 Essential hypertension Surgical History Surgical History History of radial keratotomy History of coronary angioplasty History of section History of cardiac catheterization (2015) History of hip surgery (2018) ORIF right hip for IT fx Family History Family History Father Family history of heart disease in male family member before age 55 Family history of coronary artery disease Hypertension Grandparent Diabetes mellitus Cerebrovascular accident Mother Family history of heart disease in male family member before age 55 Family history of arthritis Endometrial cancer Social History Social History Social History: Surrogate medical decision maker: Louis Diazrosalie, spouse. Code status: Full code. Smoking status: Never smoker Second hand tobacco smoke exposure: No Alcohol intake: current Drinks per week: 1 Substance use: never Substance use type: does not use Do You Feel Safe in your Home?: Yes Lack of Transportation: No Lack of Food: Never True Current Housing: I Have Housing Concerned About Future Housing: No Difficulty Paying Gas/Electric Bills: No Difficulty Paying for Meds: No Currently Unemployed: No Education: Bachelor's Degree Difficulty w/ Childcare or Family Care: No Living arrangements: with family Additional living arrangements comments: Lives with in [place]. 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: No Agree to blood products: Yes Meds Home Medications and Allergies Home Medications ?Medication ?Instructions ?Recorded ?Confirmed ?Type clopidogrel 75 mg tablet 75 mg PO DAILY 08/01/19 12/08/24 History subcutaneous insulin pump (MiniMed #1 ea 08/03/19 12/08/24 History 630G Insulin Pump) insulin aspart U-100 100 unit/mL See Rx Instructions subcut 02/06/20 12/08/24 Rx subcutaneous solution (Novolog USEASDIRECTD 90 days #90 mL U-100 Insulin aspart) ferrous sulfate 325 mg (65 mg 650 mg PO DAILY 07/22/22 12/08/24 History iron) tablet (FeroSul) lorazepam 0.5 mg tablet 0.5 mg PO DAILY PRN Anxiety #30 01/10/23 12/08/24 Rx tabs blood-glucose transmitter (Dexcom 01/29/23 12/08/24 History G6 Transmitter device) tramadol 50 mg tablet See Rx Instructions PO QID PRN 02/07/24 12/08/24 Rx pain #60 tabs nystatin 100,000 unit/gram topical 1 applic topical QID 05/20/24 12/08/24 History powder (Klayesta) losartan 100 mg tablet See Rx Instructions .Route 11/29/24 12/08/24 Rx .COMPLEX #90 tabs ondansetron 4 mg disintegrating 4 mg PO Q8H PRN nausea and 11/29/24 12/08/24 Rx tablet vomiting #20 tabs Tylenol Extra Strength 650 mg PO Q8H PRN pain 12/08/24 12/08/24 History ergocalciferol (vitamin D2) 1,250 50,000 unit PO WEEKLY 12/08/24 12/08/24 History mcg (50,000 unit) capsule evolocumab 420 mg/3.5 mL 420 mg subcut .BIWEEKLY 12/08/24 12/08/24 History subcutaneous wearable injector (Repatha Pushtronex) Allergies Allergy/AdvReac Type Severity Reaction Status Date / Time levofloxacin (From Levaquin) Allergy Severe Swelling Verified 12/07/24 22:54 of Lip/Tongue/Throat itraconazole AdvReac Mild Itching Verified 12/07/24 22:54 terbinafine (From Lamisil) AdvReac Mild HOT FLASHES Verified 12/10/24 15:10 Vital Signs Vital Signs - 24 hr 12/09/24 20:00 12/09/24 20:00 12/09/24 22:00 Temperature 36.9 C Pulse Rate 85 87 91 Respiratory Rate 16 Blood Pressure 123/65 Pulse Oximetry 98 Oxygen Delivery 12/10/24 00:00 12/10/24 00:00 12/10/24 02:00 Temperature 36.8 C Pulse Rate 86 91 78 Respiratory Rate 20 Blood Pressure 121/67 Pulse Oximetry 100 Oxygen Delivery 12/10/24 04:00 12/10/24 04:20 12/10/24 06:00 Temperature 36.7 C Pulse Rate 84 78 79 Respiratory Rate 14 Blood Pressure 128/73 Pulse Oximetry 98 Oxygen Delivery 12/10/24 08:00 12/10/24 08:00 12/10/24 08:00 Temperature 36.9 C Pulse Rate 92 92 Respiratory Rate 20 Blood Pressure 122/87 Pulse Oximetry 99 Oxygen Delivery Room Air 12/10/24 10:00 12/10/24 12:00 12/10/24 12:00 Temperature 36.9 C Pulse Rate 85 85 Respiratory Rate 18 Blood Pressure 124/62 Pulse Oximetry 100 Oxygen Delivery Room Air 12/10/24 14:00 12/10/24 16:00 12/10/24 16:00 Temperature Pulse Rate 82 82 Respiratory Rate Blood Pressure Pulse Oximetry Oxygen Delivery Room Air 12/10/24 16:00 Temperature 36.9 C Pulse Rate 84 Respiratory Rate 18 Blood Pressure 131/75 Pulse Oximetry 100 Oxygen Delivery Exam Narrative: Lungs are clear to auscultation bilaterally Cardiovascular regular rate rhythm no murmurs Abdomen soft nontender nondistended bowel sounds are positive Extremities no edema Results Labs 12/10/24 04:13 12/10/24 04:13 Labs: Short CBC 12/10/24 Range/Units 04:13 WBC 5.6 (4.5-10.0) K/mm3 Hgb 7.9 L (12.0-15.0) g/dL Hct 26.8 L (37.0-47.0) % Plt Count 278 (150-375) k/mm3 [facility] 12/10/24 04:13 Sodium 136 L Potassium 5.3 H Chloride 109 H Carbon Dioxide 20 L BUN 50 H Creatinine 3.07 H Glucose 86 Calcium 8.3 L
[2024-12-10 20:51] LABS: Anion Gap 9 mmol/L (4-12); Blood Urea Nitrogen 52 mg/dL (7-17); Calcium 8.1 mg/dL (8.4-10.2); Carbon Dioxide 21 mmol/L (22-30); Chloride 106 mmol/L (98-107); Estimated CRCL calculation 19 ml/min; Estimated Glomerular Filt Rate 15; Glucose 102 mg/dL (65-110); Potassium 4.7 mmol/L (3.4-5.0); Sodium 136 mmol/L (137-145)
[2024-12-10] MEDS: CYANOCOBALAMIN INJ 1,000 MCG/ML VIAL 1000 MCG IM (20:56)
[2024-12-10] MEDS: EPOETIN ALFA-EPBX 10,000 UNITS/ML VIAL 10000 UNITS SUB-Q (20:56)
[2024-12-10] MEDS: cefTRIAXone 1 GM in SODIUM CHLORIDE 0.9% IV 50 ML 100 ML IVPB (22:51)
[2024-12-10] MEDS: AZITHROMYCIN 250 MG/NS 250 ML 250 MG/250 ML BAG IVPB (23:28)
[2024-12-11] VITALS (12 sets, daily range): BP systolic 112–144; BP diastolic 57–77; PULSE 73–95; RESP 16–20; TEMP 36.5–36.9; O2SAT 94–100
[2024-12-11] MEDS: ACETAMINOPHEN 500 MG TABLET 1000 MG PO ×4 (00:37→21:29)
[2024-12-11 04:32] LABS: Hematocrit 26.1 % (37.0-47.0); Hemoglobin 7.7 g/dL (12.0-15.0); Mean Corpuscular HGB Conc 29.5 g/dl (32-36); Mean Corpuscular Hemoglobin 26.0 pg (26-34); Mean Corpuscular Volume 88.2 fl (80-100); Platelet Count Result 274 k/mm3 (150-375); Red Blood Count 2.96 M/mm3 (4.2-5.4); White Blood Count 5.6 K/mm3 (4.5-10.0)
[2024-12-11 04:54] LABS: Anion Gap 7 mmol/L (4-12); Blood Urea Nitrogen 54 mg/dL (7-17); Calcium 8.1 mg/dL (8.4-10.2); Carbon Dioxide 22 mmol/L (22-30); Chloride 107 mmol/L (98-107); Estimated CRCL calculation 19 ml/min; Estimated Glomerular Filt Rate 15; Glucose 99 mg/dL (65-110); Magnesium 2.3 mg/dL (1.6-2.3); Potassium 4.5 mmol/L (3.4-5.0); Sodium 136 mmol/L (137-145)
[2024-12-11] MEDS: HOME MEDICATION INSULIN 1 EACH XX (06:12)
[2024-12-11] MEDS: guaiFENesin/CODEINE (*CRX) 200/20 MG 10 ML SYRUP PO ×3 (06:17→23:46)
--- NOTE | 2024-12-11 07:57 | P.PNIM_ITS ---
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 Nicole at [place]), insulin-dependent diabetes mellitus, depression and anxiety, CAD, history of ST-elevation PR status post POBA small caliber diagonal branch 05/08/2016, history of splenic infarct, polymyalgia rheumatica, untreated DOUG per the patient's wishes, presents with shortness of breath which has been steadily worsening over many weeks. She was told by her PCP she has low hemoglobin secondary to iron deficiency. She was scheduled for outpatient blood transfusion and iron infusion which she did not get yet. She also complained of dysuria on presentation and a cough of clear sputum production. Denied any chest pain. Thinks she had heart failure but never diagnosed, she was taken off lasix some time ago and is concerned about worsening leg swelling. She was taken off of b-blockers because they caused dizziness and doesn't want to go back on. In the ER she was given IV iron, she was given Rocephin and azithromycin. She had sinus tachycardia and elevated troponin but no significant ST changes on EKG. ----- Acute on chronic anemia: Suspected to be iron deficiency in the outpatient setting. 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 Iron and TIBC low, ferritin high although. Received IV iron on admission. Hemoglobin was 7.6. Hemoglobin dropped to 6.9, status post 1 unit PRBC on 12/09/2028. Has been stable since. Continue daily hemoglobin monitoring. Stool occult still pending. Continue ferrous sulfate at 325 mg p.o. q.day. hematology consult noted. Started on vitamin B12, started on Procrit. Follow-up in Hematology office Shortness of breath: Resolved. Recommend outpatient therapy. Multifactorial etiology including fluid overload in suspected community-acquired pneumonia. Ceftriaxone switch to Augmentin, continue with azithromycin for total 5 day course Heart failure reduced ejection fraction: BNP [id number] on admission Acute decompensation on presentation, resolved. Patient tells me she thinks she has heart failure in the past but it was never diagnosed. She was taken off of Lasix and on presentation her swelling was worse. The swelling was worse after 1 unit PRBC with Lasix. She received more Lasix on 12/10/2024, edema has resolved in spite of intake/output recording higher net positive balance. TTE showing grade 3 diastolic dysfunction, reduced EF at 30-35%. On 12/11/2024 will hold any further Lasix due to worsening kidney function. The patient was on higher doses of Lasix before reports she was taken off due to increasing serum creatinine. She is educated about the issue, amenable to a relative baseline. She does not want to take beta-blockers. Will defer Jardiance and Entresto to Cardiology in the outpatient setting, will make referral. Continue daily weights and strict intake/output. ANDRES and CKD: Patient tells me her baseline is 2.2. Presented with serum creatinine 2.5, on 12/10/2024 serum creatinine 3.0. Could be due to low effective circulating volume due to fluid overload versus UTI versus severe anemia. After starting aggressive diuresis she has had resolution of her swelling with serum creatinine up to 3.21 on 12/11/2024. Hold Lasix, Nephrology following. Will have to accept the relative baseline, patient amenable. Hyperkalemia: 5.3 on 12/10/2024. Resolved status post Lokelma 5 mg p.o. x1, Lasix. And Lasix. UTI: Present on admission, complained of dysuria. Urinalysis indicative of infection. Urine culture negative. Ceftriaxone started on 12/08/2024, switch to Augmentin to finish 5 days. Continue azithromycin, started on 12/07/2024. 12/07/2024 blood culture x2, no growth to date. Dysuria resolved. Insulin-dependent diabetes mellitus: Patient wanted to use her glucose monitoring and insulin pump. Risks versus benefits discussed, she signed the agreement. Continue Accu-Cheks a.c. HS otherwise. CAD status post balloon angioplasty, hyperlipidemia: Continue Repatha on discharge. Resume Plavix and monitor anemia. Polymyalgia rheumatica: Patient taken off prednisone due to side effects, she reports her nurse tech had no further recommendations. She has stiffness and pain in the morning moving throughout the day. Continue PT/OT. ----- Full code Transfer to medical floor. Saline lock IV Strict intake/output, daily weights. Heart healthy diabetic diet SCDs only due to anemia Hopefully home tomorrow if serum creatinine stable, will discuss with Nephrology. Time Spent With Patient Time with patient: Greater than 35 minutes Subjective Date/time seen: 12/11/24 07:57 Interval history: No major acute overnight events. Reports her breathing is good, cough is better and she is able to expectorate more. Feels as if her swelling is better. She has stiffness in her arms and shoulders worse in the mornings. Review of Systems Review of Systems: All systems reviewed & are unremarkable except as noted in HPI and below (Subjective) Exam Const: General: comfortable and no acute distress Other: A&O x3 HENMT: Mouth: Yes moist mucous membranes Eyes: Pupils: Equal, round and reactive pupils present Neck: Neck: supple Resp: Effort & Inspection: normal respiratory effort Other: Left lower lobe rhonchi, scant crackles right lower lobe Cardio: Rate: regular rate Rhythm: regular rhythm GI: Inspection: non-distended GI Palp: Yes Soft to palpation, No Tenderness to palpation present (GI) and No Guarding due to palpation present (GI) Neuro: Motor exam (neuro): 5/5 motor strength present throughout Extrem: Other: Pitting edema resolved Psych: Mental Status: mental status grossly normal Objective Data Vital Signs Vital Signs: Vital Signs - 24 hr 12/10/24 08:00 12/10/24 08:00 12/10/24 08:00 Temperature 98.5 F Pulse Rate 92 92 Respiratory Rate 20 Blood Pressure 122/87 Pulse Oximetry 99 Oxygen Delivery Room Air Fraction of Inspired Oxygen 12/10/24 10:00 12/10/24 12:00 12/10/24 12:00 Temperature 98.5 F Pulse Rate 85 85 Respiratory Rate 18 Blood Pressure 124/62 Pulse Oximetry 100 Oxygen Delivery Room Air Fraction of Inspired Oxygen 12/10/24 14:00 12/10/24 16:00 12/10/24 16:00 Temperature Pulse Rate 82 82 Respiratory Rate Blood Pressure Pulse Oximetry Oxygen Delivery Room Air Fraction of Inspired Oxygen 12/10/24 16:00 12/10/24 18:00 12/10/24 20:00 Temperature 98.5 F 98.0 F Pulse Rate 84 88 90 Respiratory Rate 18 14 Blood Pressure 131/75 110/64 Pulse Oximetry 100 98 Oxygen Delivery Fraction of Inspired Oxygen 12/10/24 20:00 12/10/24 20:00 12/10/24 20:59 Temperature Pulse Rate 88 88 Respiratory Rate 20 Blood Pressure Pulse Oximetry 95 Oxygen Delivery Room Air Room Air Fraction of Inspired Oxygen 21 12/10/24 22:00 12/10/24 23:30 12/11/24 00:00 Temperature 97.9 F Pulse Rate 89 95 Respiratory Rate 18 Blood Pressure 144/77 H Pulse Oximetry 94 100 Oxygen Delivery Autopap Fraction of Inspired Oxygen 12/11/24 00:00 12/11/24 00:00 12/11/24 02:00 Temperature Pulse Rate 88 84 Respiratory Rate Blood Pressure Pulse Oximetry Oxygen Delivery Room Air Fraction of Inspired Oxygen 12/11/24 03:48 12/11/24 04:00 12/11/24 04:00 Temperature 98.5 F Pulse Rate 74 Respiratory Rate 16 Blood Pressure 119/57 L Pulse Oximetry 94 98 Oxygen Delivery Autopap Room Air Fraction of Inspired Oxygen 12/11/24 04:00 12/11/24 06:00 Temperature Pulse Rate 89 73 Respiratory Rate Blood Pressure Pulse Oximetry Oxygen Delivery Fraction of Inspired Oxygen Intake/Output Intake/Output: Intake & Output 12/08/24 12/09/24 12/10/24 12/11/24 23:59 23:59 23:59 23:59 Intake Total 1030 1710 1670 350 Output Total 643 424 4777 Balance 80 1160 570 350 Meds/Results Medications: Active Medications Generic Name Dose Route Start Last Admin Trade Name Freq PRN Reason Stop Dose Admin Acetaminophen 1,000 mg 12/08/24 11:31 12/11/24 06:17 Acetaminophen 500 Mg Tablet PO 1,000 mg Q6H PRN Administration Mild Pain (1-3) or Fever Amoxicillin/Clavulanate Potassium 1 tablet 12/11/24 20:00 Amoxicillin/Clavulanate K 500-125 Mg Tab PO 12/12/24 20:01 Q12H [facility] Artificial Tears 1 drop 12/09/24 15:34 Artificial Tears Ophth Soln 15 Ml Bottle EACH EYE QID PRN Dry Eye(s) Azithromycin 250 mg 12/11/24 20:00 Azithromycin 250 Mg Tablet PO 12/12/24 20:01 Q24H [facility] Benzonatate 100 mg 12/10/24 17:00 12/10/24 17:17 Benzonatate 100 Mg Capsule PO 100 mg TID LAQUITA Administration Cyanocobalamin 1,000 mcg 12/11/24 09:00 Cyanocobalamin 1,000 Mcg Tablet PO QAM [facility] Ferrous Sulfate 325 mg 12/09/24 09:00 12/10/24 09:49 Ferrous Sulfate 325 Mg Tablet PO 325 mg DAILY LAQUITA Administration Guaifenesin/Codeine Phosphate 10 ml 12/08/24 23:57 12/11/24 06:17 Guaifenesin/Codeine (*Crx) 200/20 Mg 10 Ml Syrup PO 10 ml Q6H PRN Administration Cough Insulin Human Regular 1 each 12/09/24 06:00 12/11/24 06:12 Home Medication Insulin XX 1 each DAILY@0600 [facility] Administration Lorazepam 0.5 mg 12/08/24 17:47 Lorazepam (*Crx) 0.5 Mg Tablet PO DAILY PRN Anxiety Radiology Results: ITS Impressions Chest X-Ray 12/08/24 05:55 IMPRESSION: 1. Bibasilar atelectasis and/or airspace disease, with small left pleural effusion. Labs Labs: Laboratory Results - last 24 hr 12/10/24 12/10/24 12/10/24 07:23 11:52 19:48 WBC RBC Hgb Hct MCV MCH MCHC RDW Plt Count MPV Sodium Potassium Chloride Carbon Dioxide Anion Gap BUN Creatinine Estim Creat Clear Calc Estimated GFR Glucose POC Capillary Glucose 106 H 125 H 120 H Calcium Magnesium 12/10/24 12/11/24 12/11/24 20:34 04:04 07:39 WBC 5.6 RBC 2.96 L Hgb 7.7 L Hct 26.1 L MCV 88.2 MCH 26.0 MCHC 29.5 L RDW 17.2 H Plt Count 274 MPV 10.0 Sodium 136 L 136 L Potassium 4.7 4.5 Chloride 106 107 Carbon Dioxide 21 L 22 Anion Gap 9 7 BUN 52 H 54 H Creatinine 3.17 H 3.21 H Estim Creat Clear Calc 19 19 Estimated GFR 15 L 15 L Glucose 102 99 POC Capillary Glucose 101 Calcium 8.1 L 8.1 L Magnesium 2.3
[2024-12-11 08:05] LABS: CRP 7.2 mg/dL (<1.0)
[2024-12-11] MEDS: CYANOCOBALAMIN 1,000 MCG TABLET 1000 MCG PO (09:32)
[2024-12-11] MEDS: BENZONATATE 100 MG CAPSULE PO ×2 (09:33→12:18)
[2024-12-11] MEDS: FERROUS SULFATE 325 MG TABLET PO (09:33)
[2024-12-11] MEDS: CLOPIDOGREL BISULFATE 75 MG TABLET PO (09:34)
--- NOTE | 2024-12-11 09:40 | P.PNNP_ITS ---
Progress Note: A&P Assessment and Plan (1) Acute kidney injury: Code(s): N17.9 - Acute kidney failure, unspecified Status: Acute Assessment and Plan: * as note by admission creatinine (creatinine 2.63mg/dL) * worsening noted by labs trend * suspect several issues playing a role: * anemia * urinary tract infection * CHF/decline in EF * need for IV diuretics * possible progression of disease (?) * random fluctuations in CKD due to acute illness... * other (?) * follow trend of repeat labs and UOP (2) Stage 4 chronic kidney disease: Code(s): N18.4 - Chronic kidney disease, stage 4 (severe) Status: Chronic Assessment and Plan: * baseline creatinine runs around 2.0 - 2.4mg/dl * slow decline over last the 3 years due disease progression along withrecurrent episodes of ANDRES, some of which linked to excess Lasix use, Bactrim use. and other medications (i.e. azathioprine) * off SGLT2 inhibtors due to frequent UTIs * last outpatinet creatinine 2.20mg/dl in October 2024 * due to hypertension and diabetes mellitus * well informed of her kidney disease - she is aware of the need for good glycemic and blood pressure control as well as adequate hydration * follows with Dr. Pepe Nicole at [facility] Nephrology (3) SOB (shortness of breath): Code(s): R06.02 - Shortness of breath Status: Acute Assessment and Plan: * seems stable if not better * several issues contributing: * anemia * pleural effusion * CHF * pneumonia(?) * other (?) * continue current therapy as outlined (4) CHF (congestive heart failure): Code(s): I50.9 - Heart failure, unspecified Status: Acute Assessment and Plan: * no reported history but does have known CKD * was on lasix PRN for LE edema * last Echo (August 2023) noted: * normal global left ventricular systolic function * ejection fraction is measured at 66 % * impaired diastolic relaxation Grade I * no significant valvular dysfunction * repeat Echo (12/10/24): * eft ventricular systolic function is moderately reduced, estimated at 30 - 35% * lleft ventricular diastolic function is grade III diastolic dysfunction * trace aortic valve regurgitation * mild mitral valve regurgitation * trace tricuspid valve regurgitation * moderate pulmonary hypertension, estimated pulmonary arterial systolic pressure is 49 mmHg * trace pulmonic regurgitation * on IV lasix for now * Cardiology consulted (5) Anemia: Code(s): D64.9 - Anemia, unspecified Status: Acute Assessment and Plan: * was scheduled for outpatient PRBC transfusion + IV iron * evidence of iron deficiency by October 2024 labs * s/p PRBC transfusion (1 unit to date) * Hem/Onc recommendations noted * s/p dosing with Epogen * follow trend of H/H (6) UTI (urinary tract infection): Code(s): N39.0 - Urinary tract infection, site not specified Status: Acute Assessment and Plan: * admission UA suggestive * however, urine culture noted (negative) * on antibiotics (7) Essential hypertension: Code(s): I10 - Essential (primary) hypertension Status: Chronic Assessment and Plan: * reasonable control * losartan on hold (due to #1) * follow trend of hemodynamics (8) Type 2 diabetes mellitus with chronic kidney disease: Code(s): E11.22 - Type 2 diabetes mellitus with diabetic chronic kidney disease Status: Chronic Assessment and Plan: * follow accu-cheks * glycemic control per hospitalist Will continue to follow. L Subjective Date/time seen: 12/11/24 09:40 Interval history: Follow-up for acute kidney injury/acute renal failure on chronic kidney disease. Renal function/creatinine a bit worse by trend of labs; breathing seems better but still has significant lower extremity swelling/edema; requesting more IV diuretic therapy at this time; Echo results noted and Cardiology consulted; seen by Hematology and dosed with Epogen; no apparent distress noted at the time of my visit. Exam 2 Narrative: General: WD/WN female in NAD Heart: normal S1 and S2; no rub Lungs: few bibasilar crackles Abdomen: soft, nontender, nondistended, positive bowel sounds Extremities: no cyanosis or clubbing; trace edema Skin: warm and dry Objective Data Vital Signs Vital Signs: Vital Signs Temp Pulse Resp BP Pulse Ox O2 Del Method FiO2 12/11/24 08:00 97.7 F 76 16 112/58 L 97 12/11/24 06:00 73 12/11/24 04:00 89 12/11/24 04:00 98.5 F 74 16 119/57 L 98 12/11/24 04:00 Room Air 12/11/24 03:48 94 Autopap 12/11/24 02:00 84 12/11/24 00:00 88 12/11/24 00:00 Room Air 12/11/24 00:00 97.9 F 95 18 144/77 H 100 12/10/24 23:30 94 Autopap 12/10/24 22:00 89 12/10/24 20:59 88 20 95 Room Air 21 12/10/24 20:00 88 12/10/24 20:00 Room Air 12/10/24 20:00 98.0 F 90 14 110/64 98 12/10/24 18:00 88 12/10/24 16:00 98.5 F 84 18 131/75 100 12/10/24 16:00 Room Air 12/10/24 16:00 82 12/10/24 14:00 82 Intake/Output Intake/Output: Intake & Output 12/08/24 12/09/24 12/10/24 12/11/24 23:59 23:59 23:59 23:59 Intake Total 1030 1710 1670 470 Output Total 714 759 3127 Balance 80 1160 570 470 Meds/Results Medications: Active Medications Generic Name Dose Route Start Last Admin Trade Name Freq PRN Reason Stop Dose Admin Acetaminophen 1,000 mg 12/08/24 11:31 12/11/24 12:21 Acetaminophen 500 Mg Tablet PO 1,000 mg Q6H PRN Administration Mild Pain (1-3) or Fever Amoxicillin/Clavulanate Potassium 1 tablet 12/11/24 20:00 Amoxicillin/Clavulanate K 500-125 Mg Tab PO 12/12/24 20:01 Q12H LAQUITA Artificial Tears 1 drop 12/09/24 15:34 Artificial Tears Ophth Soln 15 Ml Bottle EACH EYE QID PRN Dry Eye(s) Azithromycin 250 mg 12/11/24 20:00 Azithromycin 250 Mg Tablet PO 12/12/24 20:01 Q24H LAQUITA Benzonatate 100 mg 12/10/24 17:00 12/11/24 12:18 Benzonatate 100 Mg Capsule PO 100 mg TID LAQUITA Administration Clopidogrel Bisulfate 75 mg 12/11/24 09:00 12/11/24 09:34 Clopidogrel Bisulfate 75 Mg Tablet PO 75 mg DAILY LAQUITA Administration Cyanocobalamin 1,000 mcg 12/11/24 09:00 12/11/24 09:32 Cyanocobalamin 1,000 Mcg Tablet PO 1,000 mcg QAM LAQUITA Administration Ferrous Sulfate 325 mg 12/09/24 09:00 12/11/24 09:33 Ferrous Sulfate 325 Mg Tablet PO 325 mg DAILY LAQUITA Administration Furosemide 40 mg 12/11/24 11:45 12/11/24 12:19 Furosemide Inj 40 Mg/4 Ml Vial IV PUSH 40 mg BID LAQUITA Administration Guaifenesin/Codeine Phosphate 10 ml 12/08/24 23:57 12/11/24 06:17 Guaifenesin/Codeine (*Crx) 200/20 Mg 10 Ml Syrup PO 10 ml Q6H PRN Administration Cough Insulin Human Regular 1 each 12/09/24 06:00 12/11/24 06:12 Home Medication Insulin XX 1 each DAILY@0600 LAQUITA Administration Lorazepam 0.5 mg 12/08/24 17:47 Lorazepam (*Crx) 0.5 Mg Tablet PO DAILY PRN Anxiety Radiology Results: ITS Impressions Chest X-Ray 12/08/24 05:55 IMPRESSION: 1. Bibasilar atelectasis and/or airspace disease, with small left pleural effusion. Labs Labs: Laboratory Tests 12/11/24 04:04 12/11/24 04:04 Calcium 8.1 L Magnesium 2.3 C-Reactive Protein 7.2 H Microbiology 12/08/24 00:14 Blood Blood Culture - Preliminary 12/07/24 23:58 Blood Blood Culture - Preliminary
--- NOTE | 2024-12-11 09:40 | PM.PNNEP ---
Progress Note: A&P Assessment and Plan (1) Acute kidney injury: Code(s): N17.9 - Acute kidney failure, unspecified Status: Acute Assessment and Plan: as note by admission creatinine (creatinine 2.63mg/dL) worsening noted by labs trend suspect several issues playing a role: anemia urinary tract infection CHF/decline in EF need for IV diuretics possible progression of disease (?) random fluctuations in CKD due to acute illness... other (?) follow trend of repeat labs and UOP (2) Stage 4 chronic kidney disease: Code(s): N18.4 - Chronic kidney disease, stage 4 (severe) Status: Chronic Assessment and Plan: baseline creatinine runs around 2.0 - 2.4mg/dl slow decline over last the 3 years due disease progression along withrecurrent episodes of ANDRES, some of which linked to excess Lasix use, Bactrim use. and other medications (i.e. azathioprine) off SGLT2 inhibtors due to frequent UTIs last outpatinet creatinine 2.20mg/dl in October 2024 due to hypertension and diabetes mellitus well informed of her kidney disease - she is aware of the need for good glycemic and blood pressure control as well as adequate hydration follows with Dr. Pepe Nicole at [facility] Nephrology (3) SOB (shortness of breath): Code(s): R06.02 - Shortness of breath Status: Acute Assessment and Plan: seems stable if not better several issues contributing: anemia pleural effusion CHF pneumonia(?) other (?) continue current therapy as outlined (4) CHF (congestive heart failure): Code(s): I50.9 - Heart failure, unspecified Status: Acute Assessment and Plan: no reported history but does have known CKD was on lasix PRN for LE edema last Echo (August 2023) noted: normal global left ventricular systolic function ejection fraction is measured at 66 % impaired diastolic relaxation Grade I no significant valvular dysfunction repeat Echo (12/10/24): eft ventricular systolic function is moderately reduced, estimated at 30 - 35% lleft ventricular diastolic function is grade III diastolic dysfunction trace aortic valve regurgitation mild mitral valve regurgitation trace tricuspid valve regurgitation moderate pulmonary hypertension, estimated pulmonary arterial systolic pressure is 49 mmHg trace pulmonic regurgitation on IV lasix for now Cardiology consulted (5) Anemia: Code(s): D64.9 - Anemia, unspecified Status: Acute Assessment and Plan: was scheduled for outpatient PRBC transfusion + IV iron evidence of iron deficiency by October 2024 labs s/p PRBC transfusion (1 unit to date) Hem/Onc recommendations noted s/p dosing with Epogen follow trend of H/H (6) UTI (urinary tract infection): Code(s): N39.0 - Urinary tract infection, site not specified Status: Acute Assessment and Plan: admission UA suggestive however, urine culture noted (negative) on antibiotics (7) Essential hypertension: Code(s): I10 - Essential (primary) hypertension Status: Chronic Assessment and Plan: reasonable control losartan on hold (due to #1) follow trend of hemodynamics (8) Type 2 diabetes mellitus with chronic kidney disease: Code(s): E11.22 - Type 2 diabetes mellitus with diabetic chronic kidney disease Status: Chronic Assessment and Plan: follow accu-cheks glycemic control per hospitalist Will continue to follow. Subjective Date/time seen: 12/11/24 09:40 Interval history: Follow-up for acute kidney injury/acute renal failure on chronic kidney disease. Renal function/creatinine a bit worse by trend of labs; breathing seems better but still has significant lower extremity swelling/edema; requesting more IV diuretic therapy at this time; Echo results noted and Cardiology consulted; seen by Hematology and dosed with Epogen; no apparent distress noted at the time of my visit. Exam Narrative: General: WD/WN female in NAD Heart: normal S1 and S2; no rub Lungs: few bibasilar crackles Abdomen: soft, nontender, nondistended, positive bowel sounds Extremities: no cyanosis or clubbing; trace edema Skin: warm and dry Objective Data Vital Signs Vital Signs: Vital Signs Temp Pulse Resp BP Pulse Ox O2 Del Method FiO2 12/11/24 08:00 97.7 F 76 16 112/58 L 97 12/11/24 06:00 73 12/11/24 04:00 89 12/11/24 04:00 98.5 F 74 16 119/57 L 98 12/11/24 04:00 Room Air 12/11/24 03:48 94 Autopap 12/11/24 02:00 84 12/11/24 00:00 88 12/11/24 00:00 Room Air 12/11/24 00:00 97.9 F 95 18 144/77 H 100 12/10/24 23:30 94 Autopap 12/10/24 22:00 89 12/10/24 20:59 88 20 95 Room Air 21 12/10/24 20:00 88 12/10/24 20:00 Room Air 12/10/24 20:00 98.0 F 90 14 110/64 98 12/10/24 18:00 88 12/10/24 16:00 98.5 F 84 18 131/75 100 12/10/24 16:00 Room Air 12/10/24 16:00 82 12/10/24 14:00 82 Intake/Output Intake/Output: Intake & Output 12/08/24 12/09/24 12/10/24 12/11/24 23:59 23:59 23:59 23:59 Intake Total 1030 1710 1670 470 Output Total 299 177 1573 Balance 80 1160 570 470 Meds/Results Medications: Active Medications Generic Name Dose Route Start Last Admin Trade Name Freq PRN Reason Stop Dose Admin Acetaminophen 1,000 mg 12/08/24 11:31 12/11/24 12:21 Acetaminophen 500 Mg Tablet PO 1,000 mg Q6H PRN Administration Mild Pain (1-3) or Fever Amoxicillin/Clavulanate Potassium 1 tablet 12/11/24 20:00 Amoxicillin/Clavulanate K 500-125 Mg Tab PO 12/12/24 20:01 Q12H LAQUITA Artificial Tears 1 drop 12/09/24 15:34 Artificial Tears Ophth Soln 15 Ml Bottle EACH EYE QID PRN Dry Eye(s) Azithromycin 250 mg 12/11/24 20:00 Azithromycin 250 Mg Tablet PO 12/12/24 20:01 Q24H LAQUITA Benzonatate 100 mg 12/10/24 17:00 12/11/24 12:18 Benzonatate 100 Mg Capsule PO 100 mg TID LAQUITA Administration Clopidogrel Bisulfate 75 mg 12/11/24 09:00 12/11/24 09:34 Clopidogrel Bisulfate 75 Mg Tablet PO 75 mg DAILY LAQUITA Administration Cyanocobalamin 1,000 mcg 12/11/24 09:00 12/11/24 09:32 Cyanocobalamin 1,000 Mcg Tablet PO 1,000 mcg QAM LAQUITA Administration Ferrous Sulfate 325 mg 12/09/24 09:00 12/11/24 09:33 Ferrous Sulfate 325 Mg Tablet PO 325 mg DAILY LAQUITA Administration Furosemide 40 mg 12/11/24 11:45 12/11/24 12:19 Furosemide Inj 40 Mg/4 Ml Vial IV PUSH 40 mg BID LAQUITA Administration Guaifenesin/Codeine Phosphate 10 ml 12/08/24 23:57 12/11/24 06:17 Guaifenesin/Codeine (*Crx) 200/20 Mg 10 Ml Syrup PO 10 ml Q6H PRN Administration Cough Insulin Human Regular 1 each 12/09/24 06:00 12/11/24 06:12 Home Medication Insulin XX 1 each DAILY@0600 LAQUITA Administration Lorazepam 0.5 mg 12/08/24 17:47 Lorazepam (*Crx) 0.5 Mg Tablet PO DAILY PRN Anxiety Radiology Results: ITS Impressions Chest X-Ray 12/08/24 05:55 IMPRESSION: 1. Bibasilar atelectasis and/or airspace disease, with small left pleural effusion. Labs Labs: Laboratory Tests 12/11/24 04:04 12/11/24 04:04 Calcium 8.1 L Magnesium 2.3 C-Reactive Protein 7.2 H Microbiology 12/08/24 00:14 Blood Blood Culture - Preliminary 12/07/24 23:58 Blood Blood Culture - Preliminary
[2024-12-11] MEDS: FUROSEMIDE INJ 40 MG/4 ML VIAL IV PUSH ×2 (12:19→17:07)
--- NOTE | 2024-12-11 14:11 | PM.CNCAR ---
Assessment and Plan Assessment and plan (1) Acute on chronic combined systolic (congestive) and diastolic (congestive) heart failure: Code(s): I50.43 - Acute on chronic combined systolic (congestive) and diastolic (congestive) heart failure Status: Acute Assessment and Plan: Assessment; 1. Patient with known history of previous myocardial infarction presents with symptoms of congestive heart failure. Echocardiogram reveals systolic function reduced 30-35%. Findings are most consistent with ischemic cardiomyopathy with previous anteroseptal myocardial infarction based on EKG. 2. Increasing shortness of breath and leg edema. BNP is markedly elevated. Echocardiogram shows reduced systolic function in the range of 30-35%. Findings are suggestive of acute on chronic systolic and diastolic heart failure. Echocardiogram also suggests grade 3 diastolic dysfunction. 3. Known history of previous myocardial infarction in the past. EKG suggests old anteroseptal myocardial infarction. Rule out progression of coronary artery disease. 4. Marked anemia with hemoglobin at 7.7. MCV is normal. WBC count is normal. This could be secondary to chronic kidney failure related anemia carotid. However underlying iron deficiency anemia and other disease cannot be ruled out. 5. History of chronic stage IIIB kidney disease. BUN was 15 creatinine was 3.07 on admission with GFR at 15 suggesting stage 4 chronic kidney disease. 6. Urinary symptoms on admission. Rule out urinary tract infection Recommendations: 1. Echocardiogram was reviewed. Severely reduced ejection fraction range of 30-35%. EKG shows old anteroseptal myocardial infarction. Patient needs a pharmacological nuclear stress test to evaluate for underlying ischemic heart disease and assess for severe LV systolic dysfunction. 2. Patient currently on furosemide 40 mg IV push b.i.d., Blood pressure 112/58 mm of mercury. Heart rate is 76 per minute blood. Treat patient with guideline directed medical therapy including carvedilol 3.125 mg p.o. b.i.d. will avoid Sean inhibitors, ARB and Entresto in view of her advanced kidney failure. Consider adding hydralazine 10 mg t.i.d. and isosorbide dinitrate 10 mg t.i.d. congestive heart failure. Blood pressure is soft and that may limit adding more medications. 3. Patient needs renal consultation for evaluation of advanced kidney failure stage IV. 4. Check urinalysis and C&S if not done Further recommendations to follow after reviewing nuclear stress test. Overall prognosis remains guarded for this patient with advanced renal failure and acute on chronic combined heart failure with poor systolic function. (2) Diastolic dysfunction: Onset Date: 11/2024 Code(s): I51.89 - Other ill-defined heart diseases Status: Acute (3) Pulmonary hypertension: Onset Date: 11/2024 Code(s): I27.20 - Pulmonary hypertension, unspecified Status: Acute (4) Stage 4 chronic kidney disease: Code(s): N18.4 - Chronic kidney disease, stage 4 (severe) Status: Chronic (5) Iron deficiency anemia: Code(s): D50.9 - Iron deficiency anemia, unspecified Status: Acute (6) Ischemic cardiomyopathy: Code(s): I25.5 - Ischemic cardiomyopathy Status: Acute History of Present Illness History of Present Illness Consult date/time: 12/11/24 14:11 Requesting physician: Tiffanie Evangelista MD Consult reason: congestive heart failure Reason For Visit: Sepsis, UTI, Pneumonia, CHF, NSEMI Narrative: 59-year-old white female admitted via emergency room on 12/07/2024 with complaints of shortness of breath. Patient states that she has worsening shortness of breath for about 1 week now worse with activity he. 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 Patient was scheduled for outpatient blood transfusion. Patient was also recently started on Repatha. Patient now has increasing shortness of breath, leg edema and urinary symptoms. Denied any complaints of fever chills or chest pain. Past medical history is significant for history of myocardial infarction, coronary artery disease, hyperlipidemia and chronic stage 3 kidney disease as well as hypertension. Admitting blood pressure was 140/76 mm of mercury and heart rate was 116 per minute. Patient had low-grade fever 100.0 F. Admitting laboratory data reveals sodium 137, potassium 4.6, BUN is 38, creatinine is 2.63. WBC count 6.7, hemoglobin 7.6, platelets are normal. Admitting proBNP was more than 30,000 and troponin was 0.876 on 12/07/2024 Admitting EKG revealed sinus tachycardia with heart rate of 116 per minute and low voltage. No significant ST changes noted. Patient was examined at the bedside. Patient appears to be comfortable at rest. No shortness of breath, chest pain orthopnea. 2+ leg edema is noted bilaterally. Review of Systems Review of Systems: Twelve point review of system was completed. Pertinent positive and negative findings per HPI. Constitutional positive for weight gain and leg edema. Negative for fever or chills. Head and neck negative for blurred vision, decreased hearing, soreness on throat Pulmonary systems negative for cough or hemoptysis . Positive for dyspnea on exertion. Cardiac negative for chest pain. Positive for palpitation and dyspnea on exertion. Gastrointestinal negative for nausea vomiting or diarrhea. Neurology systems negative for headache, dizziness, syncope or seizures. Skin is intact without any bruises or rashes. Joint is negative for Psych is intact with normal mood and judgment. [facility] Past Medical History Medical History History of PA (myocardial infarction) Anemia Bilateral primary osteoarthritis of knee Coronary artery disease Depression Anxiety Insulin dependent type 2 diabetes mellitus Hyperlipidemia Chronic kidney disease, stage 3 Essential hypertension Surgical History Surgical History History of radial keratotomy History of coronary angioplasty History of section History of cardiac catheterization (2014) History of hip surgery (2018) ORIF right hip for IT fx Family History Family History Father Family history of heart disease in male family member before age 55 Family history of coronary artery disease Hypertension Grandparent Diabetes mellitus Cerebrovascular accident Mother Family history of heart disease in male family member before age 55 Family history of arthritis Endometrial cancer Social History Social History Social History: Surrogate medical decision maker: Louis Diazrosalie, spouse. Code status: Full code. Smoking status: Never smoker Second hand tobacco smoke exposure: No Alcohol intake: current Drinks per week: 1 Substance use: never Substance use type: does not use Do You Feel Safe in your Home?: Yes Lack of Transportation: No Lack of Food: Never True Current Housing: I Have Housing Concerned About Future Housing: No Difficulty Paying Gas/Electric Bills: No Difficulty Paying for Meds: No Currently Unemployed: No Education: Bachelor's Degree Difficulty w/ Childcare or Family Care: No Living arrangements: with family Additional living arrangements comments: Lives with in [place]. 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: No Agree to blood products: Yes Meds Home Medications and Allergies Home Medications ?Medication ?Instructions ?Recorded ?Confirmed ?Type clopidogrel 75 mg tablet 75 mg PO DAILY 08/01/19 12/08/24 History subcutaneous insulin pump (MiniMed #1 ea 08/03/19 12/08/24 History 630G Insulin Pump) insulin aspart U-100 100 unit/mL See Rx Instructions subcut 02/06/20 12/08/24 Rx subcutaneous solution (Novolog USEASDIRECTD 90 days #90 mL U-100 Insulin aspart) ferrous sulfate 325 mg (65 mg 650 mg PO DAILY 07/22/22 12/08/24 History iron) tablet (FeroSul) lorazepam 0.5 mg tablet 0.5 mg PO DAILY PRN Anxiety #30 01/10/23 12/08/24 Rx tabs blood-glucose transmitter (Dexcom 01/29/23 12/08/24 History G6 Transmitter device) tramadol 50 mg tablet See Rx Instructions PO QID PRN 02/07/24 12/08/24 Rx pain #60 tabs nystatin 100,000 unit/gram topical 1 applic topical QID 05/20/24 12/08/24 History powder (Klayesta) losartan 100 mg tablet See Rx Instructions .Route 11/29/24 12/08/24 Rx .COMPLEX #90 tabs ondansetron 4 mg disintegrating 4 mg PO Q8H PRN nausea and 11/29/24 12/08/24 Rx tablet vomiting #20 tabs Tylenol Extra Strength 650 mg PO Q8H PRN pain 12/08/24 12/08/24 History ergocalciferol (vitamin D2) 1,250 50,000 unit PO WEEKLY 12/08/24 12/08/24 History mcg (50,000 unit) capsule evolocumab 420 mg/3.5 mL 420 mg subcut .BIWEEKLY 12/08/24 12/08/24 History subcutaneous wearable injector (Repatha Pushtronex) Allergies Allergy/AdvReac Type Severity Reaction Status Date / Time levofloxacin (From Levaquin) Allergy Severe Swelling Verified 12/07/24 22:54 of Lip/Tongue/Throat itraconazole AdvReac Mild Itching Verified 12/07/24 22:54 terbinafine (From Lamisil) AdvReac Mild HOT FLASHES Verified 12/10/24 15:10 Vital Signs Vital Signs - 24 hr 12/10/24 16:00 12/10/24 16:00 12/10/24 16:00 Temperature 36.9 C Pulse Rate 82 84 Respiratory Rate 18 Blood Pressure 131/75 Pulse Oximetry 100 Oxygen Delivery Room Air Fraction of Inspired Oxygen 12/10/24 18:00 12/10/24 20:00 12/10/24 20:00 Temperature 36.7 C Pulse Rate 88 90 Respiratory Rate 14 Blood Pressure 110/64 Pulse Oximetry 98 Oxygen Delivery Room Air Fraction of Inspired Oxygen 12/10/24 20:00 12/10/24 20:59 12/10/24 22:00 Temperature Pulse Rate 88 88 89 Respiratory Rate 20 Blood Pressure Pulse Oximetry 95 Oxygen Delivery Room Air Fraction of Inspired Oxygen 21 12/10/24 23:30 12/11/24 00:00 12/11/24 00:00 Temperature 36.6 C Pulse Rate 95 Respiratory Rate 18 Blood Pressure 144/77 H Pulse Oximetry 94 100 Oxygen Delivery Autopap Room Air Fraction of Inspired Oxygen 12/11/24 00:00 12/11/24 02:00 12/11/24 03:48 Temperature Pulse Rate 88 84 Respiratory Rate Blood Pressure Pulse Oximetry 94 Oxygen Delivery Autopap Fraction of Inspired Oxygen 12/11/24 04:00 12/11/24 04:00 12/11/24 04:00 Temperature 36.9 C Pulse Rate 74 89 Respiratory Rate 16 Blood Pressure 119/57 L Pulse Oximetry 98 Oxygen Delivery Room Air Fraction of Inspired Oxygen 12/11/24 06:00 12/11/24 08:00 Temperature 36.5 C Pulse Rate 73 76 Respiratory Rate 16 Blood Pressure 112/58 L Pulse Oximetry 97 Oxygen Delivery Fraction of Inspired Oxygen Exam Narrative: Patient was examined at bedside. The patient is awake alert appears comfortable without orthopnea at this time. Patient weighs 86.3 kg with BMI of 32. Head and neck examination is unremarkable. Neck is supple. There is no JVD or carotid bruit. Thyroid not enlarged. Lungs reveal decreased air entry bilaterally with moderate bilateral rhonchi he and positive crepitations. Heart sounds reveal normal S1-S2. No significant murmurs S3 or S4 appreciated. Abdomen is obese without hepatosplenomegaly or ascites. Bowel sounds present. Extremities reveal 2+ bilateral leg edema. Distal pulses were difficult to appreciate. Neurological examination is intact. Results Labs and Meds 12/11/24 04:04 12/11/24 04:04 Lab results: CBC 12/11/24 Range/Units 04:04 WBC 5.6 (4.5-10.0) K/mm3 RBC 2.96 L (4.2-5.4) M/mm3 Hgb 7.7 L (12.0-15.0) g/dL Hct 26.1 L (37.0-47.0) % Plt Count 274 (150-375) k/mm3 Comprehensive Metabolic Panel 12/10/24 12/11/24 Range/Units 20:34 04:04 Sodium 136 L 136 L (137-145) mmol/L Potassium 4.7 4.5 (3.4-5.0) mmol/L Chloride 106 107 (98-107) mmol/L Carbon Dioxide 21 L 22 (22-30) mmol/L BUN 52 H 54 H (7-17) mg/dL Creatinine 3.17 H 3.21 H (0.7-1.0) mg/dL Glucose 102 99 (65-110) mg/dL Calcium 8.1 L 8.1 L (8.4-10.2) mg/dL Intake and Output 12/10/24 12/11/24 12/11/24 23:59 07:59 15:59 Intake Total 890 350 120 Output Total 600 Balance 290 350 120 Intake: IV 50 250 Azithromycin 250 mg/Ns 250 ml 250 250 mg In 250 ml @ 250 mls/hr IVPB Q24H ROSALIE Rx#:[id number] cefTRIAXone 1 gm In Sodium 50 Chloride 0.9% IV 50 ml @ 100 mls/hr IVPB Q24H ROSALIE Rx#: [id number] Oral 840 100 120 Output: Urine 600 Other: # Unmeasured Voids 1 Patient Weight 12/11/24 23:59 Weight 86.3 kg Imaging and Cardiology Echo: report reviewed and other (Echocardiogram reviewed from 12/07/2024 which reveals reduced systolic function in range of 30-35% with grade 3 diastolic dysfunction. Left atrium is mildly enlarged. No significant valvular problems noted. Moderate pulmonary hypertension noted at 49. No pericardial effusion noted.) EKG results: image reviewed
--- NOTE | 2024-12-11 17:39 | PC.NURSE ---
This patient, Rosanne May, was transferred to [facility] on 12/11/24 at 1739. Personal belongings sent with patient. Report given to MARTINEZ Allan. Appropriate documentation sent with patient.
--- NOTE | 2024-12-11 17:42 | PC.NURSE ---
This patient, Rosanne May, was received from IMU on 12/11/24 at 1742. Patient/family oriented to unit policies and routines
[2024-12-11] MEDS: AZITHROMYCIN 250 MG TABLET PO (21:23)
[2024-12-12] VITALS (7 sets, daily range): BP systolic 105–130; BP diastolic 48–62; PULSE 72–84; RESP 16–20; TEMP 36.1–36.7; O2SAT 98–100
[2024-12-12 05:32] LABS: Anion Gap 8 mmol/L (4-12); Blood Urea Nitrogen 57 mg/dL (7-17); Calcium 8.4 mg/dL (8.4-10.2); Carbon Dioxide 23 mmol/L (22-30); Chloride 105 mmol/L (98-107); Estimated CRCL calculation 18 ml/min; Estimated Glomerular Filt Rate 15; Glucose 94 mg/dL (65-110); Magnesium 2.3 mg/dL (1.6-2.3); Potassium 4.6 mmol/L (3.4-5.0); Sodium 136 mmol/L (137-145)
[2024-12-12 05:37] LABS: Hematocrit 26.9 % (37.0-47.0); Hemoglobin 7.9 g/dL (12.0-15.0); Mean Corpuscular HGB Conc 29.4 g/dl (32-36); Mean Corpuscular Hemoglobin 25.9 pg (26-34); Mean Corpuscular Volume 88.2 fl (80-100); Platelet Count Result 269 k/mm3 (150-375); Red Blood Count 3.05 M/mm3 (4.2-5.4); White Blood Count 4.9 K/mm3 (4.5-10.0)
[2024-12-12] MEDS: HOME MEDICATION INSULIN 1 EACH XX (07:33)
[2024-12-12] MEDS: CYANOCOBALAMIN 1,000 MCG TABLET 1000 MCG PO (08:50)
[2024-12-12] MEDS: BENZONATATE 100 MG CAPSULE PO ×3 (08:50→16:32)
[2024-12-12] MEDS: CLOPIDOGREL BISULFATE 75 MG TABLET PO (08:51)
[2024-12-12] MEDS: FERROUS SULFATE 325 MG TABLET PO (08:51)
--- NOTE | 2024-12-12 11:12 | PCOTNOTE ---
Patient out of the room at this time. Patient having testing done. Will check back later
--- NOTE | 2024-12-12 11:30 | EST_ITS ---
Patient Info Name: Rosanne May Age: 59 years : 1965 Gender: Female Ht: 65 in Wt: 190 lbs BSA: 2.02 m2 HR: 77 bpm BP: 115 / 56 mmHg Exam Date: 12/12/2024 11:30 AM Patient Status: I Admit Date: 12/08/2024 Exam Type: CA stress abdoulaye w NM A regadenoson stress test was performed. Staff Referring Physician: Gio Kan Attending Provider: Bailey Tello DO Exercise Technologist: Karuna Ken Exercise Physician: Gio Kan Summary 1. Sinus rhythm with PVCs and evidence of previous anterior infarction. 2. No change following injection of Lexiscan. 3. Occasional PVC. 4. Clinically and electrocardiographically uneventful Lexiscan stress test. 5. Myocardial perfusion results to be dictated by Radiology. Protocol: Lexiscan Stress ECG Details Stage: REST Duration (min): 3 min : 26 sec HR (bpm): 78 SBP (mmHg): 115 DBP (mmHg): 56 Stage: REST Duration (min): 10 min : 14 sec HR (bpm): 78 SBP (mmHg): 115 DBP (mmHg): 56 Stage: STAGE 1 Duration (min): 0 min : 59 sec HR (bpm): 93 SBP (mmHg): 112 DBP (mmHg): 72 Stage: RECOVERY Duration (min): 1 min : 0 sec HR (bpm): 89 SBP (mmHg): 112 DBP (mmHg): 72 Stage: RECOVERY Duration (min): 2 min : 0 sec HR (bpm): 91 SBP (mmHg): 112 DBP (mmHg): 72 Stage: RECOVERY Duration (min): 3 min : 0 sec HR (bpm): 89 SBP (mmHg): 112 DBP (mmHg): 54 Stage: RECOVERY Duration (min): 3 min : 46 sec HR (bpm): 113 SBP (mmHg): 112 DBP (mmHg): 54 Rest HR: 78 bpm Peak HR: 93 bpm Rest Sys BP: 115 mmHg Peak Sys BP: 112 mmHg Max Pred HR: 160 bpm % Max Pred HR: 58 % Target HR: 136 bpm Max RPP: 10,416 bpm*mmHg Termination Reason: Completed protocol Cardiac Symptoms: None Total Time: 1 min : 0 sec Rest Denis BP: 56 mmHg Peak Deins BP: 72 mmHg Total Dose: 0.4 mg Resting ECG Sinus rhythm with PVCs and evidence of previous anterior infarction. Stress ECG No change following injection of Lexiscan. Arrhythmias Occasional PVC. Report Signatures
[2024-12-12 13:08] LABS: Albumin 2.6 g/dL (2.9-4.4); Alpha-1-Globulin 0.3 g/dL (0.0-0.4); Alpha-2-Globulin 0.9 g/dL (0.4-1.0); Gamma Globulin 0.1 g/dL (0.4-1.8)
[2024-12-12] MEDS: FUROSEMIDE INJ 40 MG/4 ML VIAL IV PUSH (13:18)
--- NOTE | 2024-12-12 13:18 | P.PNCA_ITS ---
Progress Note: A&P Assessment and Plan (1) Ischemic cardiomyopathy: Code(s): I25.5 - Ischemic cardiomyopathy Status: Acute (2) Acute on chronic combined systolic (congestive) and diastolic (congestive) heart failure: Code(s): I50.43 - Acute on chronic combined systolic (congestive) and diastolic (congestive) heart failure Status: Acute (3) Stage 4 chronic kidney disease: Code(s): N18.4 - Chronic kidney disease, stage 4 (severe) Status: Chronic (4) Iron deficiency anemia: Code(s): D50.9 - Iron deficiency anemia, unspecified Status: Acute Assessment and Plan: Assessment; 1. Patient with known history of previous myocardial infarction presents with symptoms of congestive heart failure. Echocardiogram reveals systolic function reduced 30-35%. Findings are most consistent with ischemic cardiomyopathy with previous anteroseptal myocardial infarction based on EKG. 2. Increasing shortness of breath and leg edema. BNP is markedly elevated. Echocardiogram shows reduced systolic function in the range of 30-35%. Findings are suggestive of acute on chronic systolic and diastolic heart failure. Echocardiogram also suggests grade 3 diastolic dysfunction. 3. Known history of previous myocardial infarction in the past. EKG suggests old anteroseptal myocardial infarction. Rule out progression of coronary artery disease. 4. Marked anemia with hemoglobin at 7.7. MCV is normal. WBC count is normal. This could be secondary to chronic kidney failure related anemia carotid. However underlying iron deficiency anemia and other disease cannot be ruled out. 5. History of chronic stage IIIB kidney disease. BUN was 15 creatinine was 3.07 on admission with GFR at 15 suggesting stage 4 chronic kidney disease. 6. Urinary symptoms on admission. Rule out urinary tract infection Recommendations: 1. Echocardiogram was reviewed. Severely reduced ejection fraction range of 30- 35%. EKG shows old anteroseptal myocardial infarction. Patient needs a pharmacological nuclear stress test to evaluate for underlying ischemic heart disease and assess for severe LV systolic dysfunction. -Nuclear stress test completed today. Baseline EKG does show deep T-wave inversion inferolaterally spread. Patient had no chest pain but had emesis during the Lexiscan stress test. 2. Patient currently on furosemide 40 mg IV push b.i.d. clinically patient is feeling somewhat better. Blood pressure blood pressure is stable at 120 8/60 and 180s 78 per minute in normal sinus rhythm. Treat patient with guideline directed medical therapy including carvedilol 3.125 mg p.o. b.i.d. will avoid Sean inhibitors, ARB and Entresto in view of her advanced kidney failure. Consider adding hydralazine 10 mg t.i.d. and isosorbide dinitrate 10 mg t.i.d. congestive heart failure. Blood pressure is soft and that may limit adding more medications. 3. Patient needs renal consultation for evaluation of advanced kidney failure stage IV. Patient evaluated by Nephrology Service and IV diuretics were adjusted. 4. Laboratory data reviewed from today. Discuss 4.9, hemoglobin is 7.9 and platelets are stable. Sodium 136, potassium is 4.6, BUN is 57 and creatinine increased to 3.07. Further recommendations of follow-up to review the results of the nuclear stress test. Subjective Date/time seen: 12/12/24 13:18 Interval history: Patient examined at the bedside. No complaints of chest pain or shortness of breath. Continues to have productive cough. Schedule for nuclear stress test today. Review of Systems Review of Systems: Twelve point review of system was completed. Pertinent positive and negative findings per HPI put Positive for cough. Negative for chest pain or shortness of breath. Negative for leg edema or orthopnea. Exam Narrative: Patient exhibited the bedside. Patient is awake alert appears comfortable. No significant chest pain or orthopnea. Head neck examination is unremarkable. Sclerae nonicteric. ENT examination is negative. Neck is supple. There is no JVD or carotid bruit. Lungs revealed bilateral rhonchi but decreased from yesterday. No wheezing noted. Heart sounds reveal normal S1-S2 with a soft systolic murmur. There is no S3 or S4. Abdomen is soft nontender. There is no hepatosplenomegaly present bowel sounds present throughout Extremities reveal trace edema. Neurological examination is intact. Objective Data Vital Signs Vital Signs: Vital Signs - 24 hr 12/11/24 16:00 12/11/24 19:36 12/11/24 20:00 Temperature 36.8 C 36.9 C Pulse Rate 84 82 Respiratory Rate 16 20 Blood Pressure 121/61 115/57 L Pulse Oximetry 99 100 Oxygen Delivery Room Air Fraction of Inspired Oxygen 12/11/24 21:14 12/11/24 21:24 12/12/24 05:17 Temperature 36.7 C Pulse Rate 86 95 84 Respiratory Rate 20 20 Blood Pressure 130/62 Pulse Oximetry 100 99 Oxygen Delivery Room Air Fraction of Inspired Oxygen 21 12/12/24 08:00 12/12/24 08:50 12/12/24 08:51 Temperature 36.5 C Pulse Rate 78 84 84 Respiratory Rate 19 19 Blood Pressure 128/60 Pulse Oximetry 98 98 Oxygen Delivery Room Air Fraction of Inspired Oxygen Intake/Output Intake/Output: Intake & Output 12/09/24 12/10/24 12/11/24 12/12/24 23:59 23:59 23:59 23:59 Intake Total 1710 1670 1350 0 Output Total 550 1100 Balance 0931 547 4187 0 Meds/Results Medications: Active Medications Generic Name Dose Route Start Last Admin Trade Name Freq PRN Reason Stop Dose Admin Acetaminophen 1,000 mg 12/08/24 11:31 12/11/24 21:29 Acetaminophen 500 Mg Tablet PO 1,000 mg Q6H PRN Administration Mild Pain (1-3) or Fever Amoxicillin/Clavulanate Potassium 1 tablet 12/11/24 20:00 12/12/24 08:51 Amoxicillin/Clavulanate K 500-125 Mg Tab PO 12/12/24 20:01 1 tablet Q12H LAQUITA Administration Artificial Tears 1 drop 12/09/24 15:34 Artificial Tears Ophth Soln 15 Ml Bottle EACH EYE QID PRN Dry Eye(s) Azithromycin 250 mg 12/11/24 20:00 12/11/24 21:23 Azithromycin 250 Mg Tablet PO 12/12/24 20:01 250 mg Q24H LAQUITA Administration Benzonatate 100 mg 12/10/24 17:00 12/12/24 13:17 Benzonatate 100 Mg Capsule PO 100 mg TID LAQUITA Administration Carvedilol 3.125 mg 12/11/24 21:00 12/12/24 08:50 Carvedilol 3.125 Mg Tablet PO 3.125 mg Q12HR LAQUITA Administration Clopidogrel Bisulfate 75 mg 12/11/24 09:00 12/12/24 08:51 Clopidogrel Bisulfate 75 Mg Tablet PO 75 mg DAILY LAQUITA Administration Cyanocobalamin 1,000 mcg 12/11/24 09:00 12/12/24 08:50 Cyanocobalamin 1,000 Mcg Tablet PO 1,000 mcg QAM LAQUITA Administration Ferrous Sulfate 325 mg 12/09/24 09:00 12/12/24 08:51 Ferrous Sulfate 325 Mg Tablet PO 325 mg DAILY LAQUITA Administration Furosemide 40 mg 12/11/24 11:45 12/12/24 13:18 Furosemide Inj 40 Mg/4 Ml Vial IV PUSH 40 mg BID LAQUITA Administration Guaifenesin/Codeine Phosphate 10 ml 12/08/24 23:57 12/11/24 23:46 Guaifenesin/Codeine (*Crx) 200/20 Mg 10 Ml Syrup PO 10 ml Q6H PRN Administration Cough Insulin Human Regular 1 each 12/09/24 06:00 12/12/24 07:33 Home Medication Insulin XX 1 each DAILY@0600 LAQUITA Administration Lorazepam 0.5 mg 12/08/24 17:47 Lorazepam (*Crx) 0.5 Mg Tablet PO DAILY PRN Anxiety Radiology Results: ITS Impressions Chest X-Ray 12/08/24 05:55 IMPRESSION: 1. Bibasilar atelectasis and/or airspace disease, with small left pleural effusion. Labs Labs: Laboratory Results - last 24 hr 12/10/24 12/11/24 12/11/24 20:34 16:45 19:43 WBC RBC Hgb Hct MCV MCH MCHC RDW Plt Count MPV Sodium Potassium Chloride Carbon Dioxide Anion Gap BUN Creatinine Estim Creat Clear Calc Estimated GFR Glucose POC Capillary Glucose 90 93 Calcium Magnesium Total Protein (PEP) 4.6 L Albumin (PEP) 2.6 L Globulin (PEP) 2.0 L Albumin/Globulin Ratio 1.3 Ldzbi-0-Svdybdvhw 0.3 Eiqqm-3-Kldmgqlof 0.9 Beta Globulins 0.6 L Gamma Globulins 0.1 L PEP Comment Comment Pr Electrophoresis MSpike Comment: 12/12/24 12/12/24 12/12/24 04:31 08:12 13:11 WBC 4.9 RBC 3.05 L Hgb 7.9 L Hct 26.9 L MCV 88.2 MCH 25.9 L MCHC 29.4 L RDW 17.4 H Plt Count 269 MPV 10.2 Sodium 136 L Potassium 4.6 Chloride 105 Carbon Dioxide 23 Anion Gap 8 BUN 57 H Creatinine 3.07 H Estim Creat Clear Calc 18 Estimated GFR 15 L Glucose 94 POC Capillary Glucose 98 136 H Calcium 8.4 Magnesium 2.3 Total Protein (PEP) Albumin (PEP) Globulin (PEP) Albumin/Globulin Ratio Ylgku-0-Ifxmihvrs Jnqwl-3-Tjyumbocp Beta Globulins Gamma Globulins PEP Comment Pr Electrophoresis MSpike
--- NOTE | 2024-12-12 13:20 | P.PNNP_ITS ---
Progress Note: A&P Assessment and Plan (1) Acute kidney injury: Code(s): N17.9 - Acute kidney failure, unspecified Status: Acute Assessment and Plan: * as note by admission creatinine (creatinine 2.63mg/dL) * worsening noted by labs trend * suspect several issues playing a role: * anemia * urinary tract infection * CHF/decline in EF * need for IV diuretics * possible progression of disease (?) * random fluctuations in CKD due to acute illness... * other (?) * follow trend of repeat labs and UOP (2) Stage 4 chronic kidney disease: Code(s): N18.4 - Chronic kidney disease, stage 4 (severe) Status: Chronic Assessment and Plan: * baseline creatinine runs around 2.0 - 2.4mg/dl * slow decline over last the 3 years due disease progression along withrecurrent episodes of ANDRES, some of which linked to excess Lasix use, Bactrim use. and other medications (i.e. azathioprine) * off SGLT2 inhibtors due to frequent UTIs * last outpatinet creatinine 2.20mg/dl in October 2024 * due to hypertension and diabetes mellitus * well informed of her kidney disease - she is aware of the need for good glycemic and blood pressure control as well as adequate hydration * may have to accept a higher creatinine in an effort to achieve/maintain euvolemia * follows with Dr. Pepe Nicole at [facility] (3) SOB (shortness of breath): Code(s): R06.02 - Shortness of breath Status: Acute Assessment and Plan: * seems stable if not better * several issues contributing: * anemia * pleural effusion * CHF * pneumonia(?) * other (?) * continue current therapy as outlined (4) CHF (congestive heart failure): Code(s): I50.9 - Heart failure, unspecified Status: Acute Assessment and Plan: * no reported history but does have known CKD * was on lasix PRN for LE edema * last Echo (August 2023) noted: * normal global left ventricular systolic function * ejection fraction is measured at 66 % * impaired diastolic relaxation Grade I * no significant valvular dysfunction * repeat Echo (12/10/24): * eft ventricular systolic function is moderately reduced, estimated at 30 - 35% * lleft ventricular diastolic function is grade III diastolic dysfunction * trace aortic valve regurgitation * mild mitral valve regurgitation * trace tricuspid valve regurgitation * moderate pulmonary hypertension, estimated pulmonary arterial systolic pressure is 49 mmHg * trace pulmonic regurgitation * on IV lasix; trial of IV bumex with metolazone today * Cardiology following with recommendations noted (5) Anemia: Code(s): D64.9 - Anemia, unspecified Status: Acute Assessment and Plan: * was scheduled for outpatient PRBC transfusion + IV iron * evidence of iron deficiency by October 2024 labs * s/p PRBC transfusion (1 unit to date) * Hem/Onc recommendations noted * Epogen while hospitalized * follow trend of H/H (6) UTI (urinary tract infection): Code(s): N39.0 - Urinary tract infection, site not specified Status: Acute Assessment and Plan: * admission UA suggestive * however, urine culture noted (negative) * on antibiotics (7) Essential hypertension: Code(s): I10 - Essential (primary) hypertension Status: Chronic Assessment and Plan: * reasonable control * losartan on hold (due to #1) * follow trend of hemodynamics (8) Type 2 diabetes mellitus with chronic kidney disease: Code(s): E11.22 - Type 2 diabetes mellitus with diabetic chronic kidney disease Status: Chronic Assessment and Plan: * follow accu-cheks * glycemic control per hospitalist Will continue to follow. L Subjective Date/time seen: 12/12/24 13:20 Interval history: Follow-up for acute kidney injury/acute renal failure on chronic kidney disease. Renal function/creatinine slightly better despite IV diuretic therapy but still feels that she still has a lot of swelling/edema present; seen by Cardiology and stress test done earlier today; no apparent distress at the time of my visit. Exam 2 Narrative: General: WD/WN female in NAD Heart: normal S1 and S2; no rub Lungs: few bibasilar crackles Abdomen: soft, nontender, nondistended, positive bowel sounds Extremities: no cyanosis or clubbing; 1+ edema Skin: warm and intact Objective Data Vital Signs Vital Signs: Vital Signs Temp Pulse Resp BP Pulse Ox O2 Del Method FiO2 12/12/24 08:51 84 19 98 Room Air 12/12/24 08:50 84 12/12/24 08:00 97.7 F 78 19 128/60 98 12/12/24 05:17 98.1 F 84 20 130/62 99 12/11/24 21:24 95 12/11/24 21:14 86 20 100 Room Air 21 12/11/24 20:00 Room Air 12/11/24 19:36 98.5 F 82 20 115/57 L 100 Intake/Output Intake/Output: Intake & Output 12/09/24 12/10/24 12/11/24 12/12/24 23:59 23:59 23:59 23:59 Intake Total 1710 1670 1350 240 Output Total 550 1100 Balance 0767 901 7568 240 Meds/Results Medications: Active Medications Generic Name Dose Route Start Last Admin Trade Name Freq PRN Reason Stop Dose Admin Acetaminophen 1,000 mg 12/08/24 11:31 12/12/24 13:27 Acetaminophen 500 Mg Tablet PO 1,000 mg Q6H PRN Administration Mild Pain (1-3) or Fever Amoxicillin/Clavulanate Potassium 1 tablet 12/11/24 20:00 12/12/24 08:51 Amoxicillin/Clavulanate K 500-125 Mg Tab PO 12/12/24 20:01 1 tablet Q12H LAQUITA Administration Artificial Tears 1 drop 12/09/24 15:34 Artificial Tears Ophth Soln 15 Ml Bottle EACH EYE QID PRN Dry Eye(s) Azithromycin 250 mg 12/11/24 20:00 12/11/24 21:23 Azithromycin 250 Mg Tablet PO 12/12/24 20:01 250 mg Q24H LAQUITA Administration Benzonatate 100 mg 12/10/24 17:00 12/12/24 16:32 Benzonatate 100 Mg Capsule PO 100 mg TID LAQUITA Administration Bumetanide 2 mg 12/12/24 19:00 Bumetanide Inj 1 Mg/4 Ml Vial IV PUSH 12/12/24 19:01 ONCE ONE Carvedilol 3.125 mg 12/11/24 21:00 12/12/24 08:50 Carvedilol 3.125 Mg Tablet PO 3.125 mg Q12HR LAQUITA Administration Clopidogrel Bisulfate 75 mg 12/11/24 09:00 12/12/24 08:51 Clopidogrel Bisulfate 75 Mg Tablet PO 75 mg DAILY LAQUITA Administration Cyanocobalamin 1,000 mcg 12/11/24 09:00 12/12/24 08:50 Cyanocobalamin 1,000 Mcg Tablet PO 1,000 mcg QAM LAQUITA Administration Ferrous Sulfate 325 mg 12/09/24 09:00 12/12/24 08:51 Ferrous Sulfate 325 Mg Tablet PO 325 mg DAILY LAQUITA Administration Guaifenesin/Codeine Phosphate 10 ml 12/08/24 23:57 12/11/24 23:46 Guaifenesin/Codeine (*Crx) 200/20 Mg 10 Ml Syrup PO 10 ml Q6H PRN Administration Cough Insulin Human Regular 1 each 12/09/24 06:00 12/12/24 07:33 Home Medication Insulin XX 1 each DAILY@0600 LAQUITA Administration Lorazepam 0.5 mg 12/08/24 17:47 Lorazepam (*Crx) 0.5 Mg Tablet PO DAILY PRN Anxiety Metolazone 5 mg 12/12/24 19:00 Metolazone 5 Mg Tablet PO 12/12/24 19:01 ONCE ONE Radiology Results: ITS Impressions Chest X-Ray 12/08/24 05:55 IMPRESSION: 1. Bibasilar atelectasis and/or airspace disease, with small left pleural effusion. Lexiscan Stress Test 12/12/24 13:37 IMPRESSION: 1. Large distribution of severe infarct involving the apical to mid anterior segments, apical lateral segment, mid anterolateral and mid inferolateral segments, and inferior apical to mid segments of left ventricle 2. Global hypokinesis left ventricular ejection fraction measuring 30%. Labs Labs: Laboratory Tests 12/12/24 04:31 12/12/24 04:31 Calcium 8.4 Magnesium 2.3 Microbiology 12/08/24 00:14 Blood Blood Culture - Preliminary 12/07/24 23:58 Blood Blood Culture - Preliminary
--- NOTE | 2024-12-12 13:20 | PM.PNNEP ---
Progress Note: A&P Assessment and Plan (1) Acute kidney injury: Code(s): N17.9 - Acute kidney failure, unspecified Status: Acute Assessment and Plan: as note by admission creatinine (creatinine 2.63mg/dL) worsening noted by labs trend suspect several issues playing a role: anemia urinary tract infection CHF/decline in EF need for IV diuretics possible progression of disease (?) random fluctuations in CKD due to acute illness... other (?) follow trend of repeat labs and UOP (2) Stage 4 chronic kidney disease: Code(s): N18.4 - Chronic kidney disease, stage 4 (severe) Status: Chronic Assessment and Plan: baseline creatinine runs around 2.0 - 2.4mg/dl slow decline over last the 3 years due disease progression along withrecurrent episodes of ANDRES, some of which linked to excess Lasix use, Bactrim use. and other medications (i.e. azathioprine) off SGLT2 inhibtors due to frequent UTIs last outpatinet creatinine 2.20mg/dl in October 2024 due to hypertension and diabetes mellitus well informed of her kidney disease - she is aware of the need for good glycemic and blood pressure control as well as adequate hydration may have to accept a higher creatinine in an effort to achieve/maintain euvolemia follows with Dr. Pepe Nicole at [facility] (3) SOB (shortness of breath): Code(s): R06.02 - Shortness of breath Status: Acute Assessment and Plan: seems stable if not better several issues contributing: anemia pleural effusion CHF pneumonia(?) other (?) continue current therapy as outlined (4) CHF (congestive heart failure): Code(s): I50.9 - Heart failure, unspecified Status: Acute Assessment and Plan: no reported history but does have known CKD was on lasix PRN for LE edema last Echo (August 2023) noted: normal global left ventricular systolic function ejection fraction is measured at 66 % impaired diastolic relaxation Grade I no significant valvular dysfunction repeat Echo (12/10/24): eft ventricular systolic function is moderately reduced, estimated at 30 - 35% lleft ventricular diastolic function is grade III diastolic dysfunction trace aortic valve regurgitation mild mitral valve regurgitation trace tricuspid valve regurgitation moderate pulmonary hypertension, estimated pulmonary arterial systolic pressure is 49 mmHg trace pulmonic regurgitation on IV lasix; trial of IV bumex with metolazone today Cardiology following with recommendations noted (5) Anemia: Code(s): D64.9 - Anemia, unspecified Status: Acute Assessment and Plan: was scheduled for outpatient PRBC transfusion + IV iron evidence of iron deficiency by October 2024 labs s/p PRBC transfusion (1 unit to date) Hem/Onc recommendations noted Epogen while hospitalized follow trend of H/H (6) UTI (urinary tract infection): Code(s): N39.0 - Urinary tract infection, site not specified Status: Acute Assessment and Plan: admission UA suggestive however, urine culture noted (negative) on antibiotics (7) Essential hypertension: Code(s): I10 - Essential (primary) hypertension Status: Chronic Assessment and Plan: reasonable control losartan on hold (due to #1) follow trend of hemodynamics (8) Type 2 diabetes mellitus with chronic kidney disease: Code(s): E11.22 - Type 2 diabetes mellitus with diabetic chronic kidney disease Status: Chronic Assessment and Plan: follow accu-cheks glycemic control per hospitalist Will continue to follow. Subjective Date/time seen: 12/12/24 13:20 Interval history: Follow-up for acute kidney injury/acute renal failure on chronic kidney disease. Renal function/creatinine slightly better despite IV diuretic therapy but still feels that she still has a lot of swelling/edema present; seen by Cardiology and stress test done earlier today; no apparent distress at the time of my visit. Exam Narrative: General: WD/WN female in NAD Heart: normal S1 and S2; no rub Lungs: few bibasilar crackles Abdomen: soft, nontender, nondistended, positive bowel sounds Extremities: no cyanosis or clubbing; 1+ edema Skin: warm and intact Objective Data Vital Signs Vital Signs: Vital Signs Temp Pulse Resp BP Pulse Ox O2 Del Method FiO2 12/12/24 08:51 84 19 98 Room Air 12/12/24 08:50 84 12/12/24 08:00 97.7 F 78 19 128/60 98 12/12/24 05:17 98.1 F 84 20 130/62 99 12/11/24 21:24 95 12/11/24 21:14 86 20 100 Room Air 21 12/11/24 20:00 Room Air 12/11/24 19:36 98.5 F 82 20 115/57 L 100 Intake/Output Intake/Output: Intake & Output 12/09/24 12/10/24 12/11/24 12/12/24 23:59 23:59 23:59 23:59 Intake Total 1710 1670 1350 240 Output Total 550 1100 Balance 3822 290 1844 240 Meds/Results Medications: Active Medications Generic Name Dose Route Start Last Admin Trade Name Freq PRN Reason Stop Dose Admin Acetaminophen 1,000 mg 12/08/24 11:31 12/12/24 13:27 Acetaminophen 500 Mg Tablet PO 1,000 mg Q6H PRN Administration Mild Pain (1-3) or Fever Amoxicillin/Clavulanate Potassium 1 tablet 12/11/24 20:00 12/12/24 08:51 Amoxicillin/Clavulanate K 500-125 Mg Tab PO 12/12/24 20:01 1 tablet Q12H LAQUITA Administration Artificial Tears 1 drop 12/09/24 15:34 Artificial Tears Ophth Soln 15 Ml Bottle EACH EYE QID PRN Dry Eye(s) Azithromycin 250 mg 12/11/24 20:00 12/11/24 21:23 Azithromycin 250 Mg Tablet PO 12/12/24 20:01 250 mg Q24H LAQUITA Administration Benzonatate 100 mg 12/10/24 17:00 12/12/24 16:32 Benzonatate 100 Mg Capsule PO 100 mg TID LAQUITA Administration Bumetanide 2 mg 12/12/24 19:00 Bumetanide Inj 1 Mg/4 Ml Vial IV PUSH 12/12/24 19:01 ONCE ONE Carvedilol 3.125 mg 12/11/24 21:00 12/12/24 08:50 Carvedilol 3.125 Mg Tablet PO 3.125 mg Q12HR LAQUITA Administration Clopidogrel Bisulfate 75 mg 12/11/24 09:00 12/12/24 08:51 Clopidogrel Bisulfate 75 Mg Tablet PO 75 mg DAILY LAQUITA Administration Cyanocobalamin 1,000 mcg 12/11/24 09:00 12/12/24 08:50 Cyanocobalamin 1,000 Mcg Tablet PO 1,000 mcg QAM LAQUITA Administration Ferrous Sulfate 325 mg 12/09/24 09:00 12/12/24 08:51 Ferrous Sulfate 325 Mg Tablet PO 325 mg DAILY LAQUITA Administration Guaifenesin/Codeine Phosphate 10 ml 12/08/24 23:57 12/11/24 23:46 Guaifenesin/Codeine (*Crx) 200/20 Mg 10 Ml Syrup PO 10 ml Q6H PRN Administration Cough Insulin Human Regular 1 each 12/09/24 06:00 12/12/24 07:33 Home Medication Insulin XX 1 each DAILY@0600 LAQUITA Administration Lorazepam 0.5 mg 12/08/24 17:47 Lorazepam (*Crx) 0.5 Mg Tablet PO DAILY PRN Anxiety Metolazone 5 mg 12/12/24 19:00 Metolazone 5 Mg Tablet PO 12/12/24 19:01 ONCE ONE Radiology Results: ITS Impressions Chest X-Ray 12/08/24 05:55 IMPRESSION: 1. Bibasilar atelectasis and/or airspace disease, with small left pleural effusion. Lexiscan Stress Test 12/12/24 13:37 IMPRESSION: 1. Large distribution of severe infarct involving the apical to mid anterior segments, apical lateral segment, mid anterolateral and mid inferolateral segments, and inferior apical to mid segments of left ventricle 2. Global hypokinesis left ventricular ejection fraction measuring 30%. Labs Labs: Laboratory Tests 12/12/24 04:31 12/12/24 04:31 Calcium 8.4 Magnesium 2.3 Microbiology 12/08/24 00:14 Blood Blood Culture - Preliminary 12/07/24 23:58 Blood Blood Culture - Preliminary
[2024-12-12] MEDS: ACETAMINOPHEN 500 MG TABLET 1000 MG PO ×2 (13:27→20:57)
--- NOTE | 2024-12-12 13:34 | P.CDI_ITS ---
<Statement entered by Tiffanie Evangelista MD - 12/15/24 10:37> This documentation has been reviewed and approved. Sepsis ruled out CDI Query Clarification Request ER documented sepsis, but diagnosis was not carried on by hospitalist. Please clarify if sepsis has been ruled in or ruled out. ER documented: Patient is a 5-year-old female who presents emergency department this evening complaining of worsening shortness of breath for the past week. Patient states that his the shortness of breath is worse with any activities of daily living and exertion. She saw her PCP/mining consultant 1 week ago and was told that she has a low hemoglobin secondary to iron deficiency. She has a scheduled outpatient blood transfusion and iron infusion in 3 days on Tuesday. Patient is also complaining of dysuria. Denies any active chest pain. Admits to history of CHF but states that she was taken off of her Lasix a while back due to her kidney function. Admits that she has been having worsening lower extremity edema. Otherwise denies any additional symptoms or concerns at this time The patient was evaluated by myself in the emergency department. History is obtained from patient who is an independent historian and physical exam was performed. External medical records were reviewed at this time. IV was established and pertinent tests were ordered. Patient was administered 1g of IV Roceph and 500mg of IV Azithromycin to cover her for sepsis likely source lower respiratory tract. EKG was obtained which revealed sinus tachycardia rate of 112 beats per minute otherwise no evidence of arrhythmia or acute ischemia. EKG was independently interpreted by me and is currently pending official cardiology read. 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
--- NOTE | 2024-12-12 13:45 | PM.IMPN ---
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 Status: Acute (2) Chronic kidney disease, stage 3: Code(s): N18.30 - Chronic kidney disease, stage 3 unspecified Status: Acute (3) UTI (urinary tract infection): Code(s): N39.0 - Urinary tract infection, site not specified Status: Acute (4) Anemia: Code(s): D64.9 - Anemia, unspecified Status: Acute (5) SOB (shortness of breath): Code(s): R06.02 - Shortness of breath Status: Acute (6) ANDRES (acute kidney injury): Code(s): N17.9 - Acute kidney failure, unspecified Status: Acute (7) Acute on chronic combined systolic (congestive) and diastolic (congestive) heart failure: Code(s): I50.43 - Acute on chronic combined systolic (congestive) and diastolic (congestive) heart failure Status: Acute Plan 59-year-old female with a history of hypertension, hyperlipidemia, CKD stage 3 (followed by Dr. Nicole at [place]), insulin-dependent diabetes mellitus, depression and anxiety, CAD, history of ST-elevation [place] status post POBA small caliber diagonal branch 05/08/2016, history of splenic infarct, polymyalgia rheumatica, untreated DOUG per the patient's wishes, presents with shortness of breath which has been steadily worsening over many weeks. She was told by her PCP she has low hemoglobin secondary to iron deficiency. She was scheduled for outpatient blood transfusion and iron infusion which she did not get yet. She also complained of dysuria on presentation and a cough of clear sputum production. Denied any chest pain. Thinks she had heart failure but never diagnosed, she was taken off lasix some time ago and is concerned about worsening leg swelling. She was taken off of b-blockers because they caused dizziness and doesn't want to go back on. In the ER she was given IV iron, she was given Rocephin and azithromycin. She had sinus tachycardia and elevated troponin but no significant ST changes on EKG. ----- Acute on chronic anemia: Suspected to be iron deficiency in the outpatient setting. 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 Iron and TIBC low, ferritin high although. Received IV iron on admission. Hemoglobin was 7.6. Hemoglobin dropped to 6.9, status post 1 unit PRBC on 12/09/2028. Has been stable since. Continue daily hemoglobin monitoring. Stool occult still pending. Continue ferrous sulfate at 325 mg p.o. q.day. hematology consult noted. Started on vitamin B12, started on Procrit. Follow-up in Hematology office Shortness of breath: Resolved. Recommend outpatient therapy. Multifactorial etiology including fluid overload, anemia, suspected community-acquired pneumonia. Ceftriaxone switch to Augmentin, continue with azithromycin for total 5 day course Acute on chronic congestive heart failure combined systolic and diastolic EF 30-35%: BNP 95746 on admission. Complaint of shortness of breath and increased leg swelling. Echocardiogram on 12/10/2024: Summary 1. Left ventricular systolic function is moderately reduced, estimated at 30-35. 2. The left ventricular diastolic function is grade III diastolic dysfunction. 3. Left atrial chamber dimension is mildly enlarged. 4. There is trace aortic valve regurgitation. 5. There is mild mitral valve regurgitation. 6. There is trace tricuspid valve regurgitation. 7. Moderate pulmonary hypertension, estimated pulmonary arterial systolic pressure is 49 mmHg. 8. There is trace pulmonic regurgitation. Cardiology recommendations noted. Undergoing pharmacological nuclear stress test. Started on furosemide 40 mg IV b.i.d. on 12/11/2024. Avoiding WESTON-inhibitor, ARB, Entresto in light of advanced kidney failure. Blood pressure on the soft side, continue Coreg 3.125 mg p.o. b.i.d. and consider hydralazine and isosorbide dinitrate. ANDRES and CKD: Patient tells me her baseline is 2.2. Presented with serum creatinine 2.5, and has increased since. Nephrology recommendations noted. Continue Lasix. Trend renal function. Daily weights, strict I/O. Follows with Dr. Pepe Nicole at [facility] Hyperkalemia: 5.3 on 12/10/2024. Resolved status post Lokelma 5 mg p.o. x1 and Lasix. UTI: Present on admission, complained of dysuria. Urinalysis indicative of infection. Urine culture negative. Ceftriaxone started on 12/08/2024, switch to Augmentin to finish 5 days. Continue azithromycin, started on 12/07/2024. 12/07/2024 blood culture x2, no growth to date. Dysuria resolved. Insulin-dependent diabetes mellitus: Patient wanted to use her glucose monitoring and insulin pump. Risks versus benefits discussed, she signed the agreement. Continue Accu-Cheks a.c. HS otherwise. CAD status post balloon angioplasty, hyperlipidemia: Continue Repatha on discharge. Resume Plavix and monitor anemia. 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 She has stiffness and pain in the morning which improves throughout the day. Continue PT/OT. ----- Full code Medical floor. Saline lock IV Strict intake/output, daily weights. Heart healthy diabetic diet SCDs only due to anemia Pending disposition, cardiology nephrology following. Time Spent With Patient Time with patient: Greater than 35 minutes Subjective Date/time seen: 12/12/24 13:45 Interval history: No major acute overnight events. Patient denies shortness of breath. Today, she is adamant about having Lasix on board for heart failure, she is aware her kidney function has worsened. Review of Systems Review of Systems: All systems reviewed & are unremarkable except as noted in HPI and below (Subjective) Exam Const: General: comfortable and no acute distress Other: A&O x3 HENMT: Mouth: Yes moist mucous membranes Eyes: Pupils: Equal, round and reactive pupils present Neck: Neck: supple Resp: Effort & Inspection: normal respiratory effort Auscultation: crackles Cardio: Rate: regular rate Rhythm: regular rhythm GI: Inspection: non-distended GI Palp: Yes Soft to palpation Neuro: Motor exam (neuro): 5/5 motor strength present throughout Extrem: Other: Minimal pitting edema bilateral lower extremities Objective Data Vital Signs Vital Signs: Vital Signs - 24 hr 12/11/24 16:00 12/11/24 19:36 12/11/24 20:00 Temperature 98.3 F 98.5 F Pulse Rate 84 82 Respiratory Rate 16 20 Blood Pressure 121/61 115/57 L Pulse Oximetry 99 100 Oxygen Delivery Room Air Fraction of Inspired Oxygen 12/11/24 21:14 12/11/24 21:24 12/12/24 05:17 Temperature 98.1 F Pulse Rate 86 95 84 Respiratory Rate 20 20 Blood Pressure 130/62 Pulse Oximetry 100 99 Oxygen Delivery Room Air Fraction of Inspired Oxygen 12/12/24 08:00 12/12/24 08:50 12/12/24 08:51 Temperature 97.7 F Pulse Rate 78 84 84 Respiratory Rate 19 19 Blood Pressure 128/60 Pulse Oximetry 98 98 Oxygen Delivery Room Air Fraction of Inspired Oxygen Intake/Output Intake/Output: Intake & Output 12/09/24 12/10/24 12/11/24 12/12/24 23:59 23:59 23:59 23:59 Intake Total 1710 1670 1350 0 Output Total 550 1100 Balance 7346 617 2556 0 Meds/Results Medications: Active Medications Generic Name Dose Route Start Last Admin Trade Name Freq PRN Reason Stop Dose Admin Acetaminophen 1,000 mg 12/08/24 11:31 12/12/24 13:27 Acetaminophen 500 Mg Tablet PO 1,000 mg Q6H PRN Administration Mild Pain (1-3) or Fever Amoxicillin/Clavulanate Potassium 1 tablet 12/11/24 20:00 12/12/24 08:51 Amoxicillin/Clavulanate K 500-125 Mg Tab PO 12/12/24 20:01 1 tablet Q12H LAQUITA Administration Artificial Tears 1 drop 12/09/24 15:34 Artificial Tears Ophth Soln 15 Ml Bottle EACH EYE QID PRN Dry Eye(s) Azithromycin 250 mg 12/11/24 20:00 12/11/24 21:23 Azithromycin 250 Mg Tablet PO 12/12/24 20:01 250 mg Q24H LAQUITA Administration Benzonatate 100 mg 12/10/24 17:00 12/12/24 13:17 Benzonatate 100 Mg Capsule PO 100 mg TID LAQUITA Administration Carvedilol 3.125 mg 12/11/24 21:00 12/12/24 08:50 Carvedilol 3.125 Mg Tablet PO 3.125 mg Q12HR LAQUITA Administration Clopidogrel Bisulfate 75 mg 12/11/24 09:00 12/12/24 08:51 Clopidogrel Bisulfate 75 Mg Tablet PO 75 mg DAILY LAQUITA Administration Cyanocobalamin 1,000 mcg 12/11/24 09:00 12/12/24 08:50 Cyanocobalamin 1,000 Mcg Tablet PO 1,000 mcg QAM LAQUITA Administration Ferrous Sulfate 325 mg 12/09/24 09:00 12/12/24 08:51 Ferrous Sulfate 325 Mg Tablet PO 325 mg DAILY LAQUITA Administration Furosemide 40 mg 12/11/24 11:45 12/12/24 13:18 Furosemide Inj 40 Mg/4 Ml Vial IV PUSH 40 mg BID LAQUITA Administration Guaifenesin/Codeine Phosphate 10 ml 12/08/24 23:57 12/11/24 23:46 Guaifenesin/Codeine (*Crx) 200/20 Mg 10 Ml Syrup PO 10 ml Q6H PRN Administration Cough Insulin Human Regular 1 each 12/09/24 06:00 12/12/24 07:33 Home Medication Insulin XX 1 each DAILY@0600 LAQUITA Administration Lorazepam 0.5 mg 12/08/24 17:47 Lorazepam (*Crx) 0.5 Mg Tablet PO DAILY PRN Anxiety Radiology Results: ITS Impressions Chest X-Ray 12/08/24 05:55 IMPRESSION: 1. Bibasilar atelectasis and/or airspace disease, with small left pleural effusion. Lexiscan Stress Test 12/12/24 13:37 IMPRESSION: 1. Large distribution of severe infarct involving the apical to mid anterior segments, apical lateral segment, mid anterolateral and mid inferolateral segments, and inferior apical to mid segments of left ventricle 2. Global hypokinesis left ventricular ejection fraction measuring 30%. Labs Labs: Laboratory Results - last 24 hr 12/10/24 12/11/24 12/11/24 20:34 16:45 19:43 WBC RBC Hgb Hct MCV MCH MCHC RDW Plt Count MPV Sodium Potassium Chloride Carbon Dioxide Anion Gap BUN Creatinine Estim Creat Clear Calc Estimated GFR Glucose POC Capillary Glucose 90 93 Calcium Magnesium Total Protein (PEP) 4.6 L Albumin (PEP) 2.6 L Globulin (PEP) 2.0 L Albumin/Globulin Ratio 1.3 Vfewh-7-Xkdnxcvsc 0.3 Jipum-3-Xprtorfzd 0.9 Beta Globulins 0.6 L Gamma Globulins 0.1 L PEP Comment Comment Pr Electrophoresis MSpike Comment: 12/12/24 12/12/24 12/12/24 04:31 08:12 13:11 WBC 4.9 RBC 3.05 L Hgb 7.9 L Hct 26.9 L MCV 88.2 MCH 25.9 L MCHC 29.4 L RDW 17.4 H Plt Count 269 MPV 10.2 Sodium 136 L Potassium 4.6 Chloride 105 Carbon Dioxide 23 Anion Gap 8 BUN 57 H Creatinine 3.07 H Estim Creat Clear Calc 18 Estimated GFR 15 L Glucose 94 POC Capillary Glucose 98 136 H Calcium 8.4 Magnesium 2.3 Total Protein (PEP) Albumin (PEP) Globulin (PEP) Albumin/Globulin Ratio Aemck-4-Bukfnbtdk Avnyt-4-Wvebsovxm Beta Globulins Gamma Globulins PEP Comment Pr Electrophoresis MSpike
[2024-12-12] MEDS: BUMETANIDE INJ 1 MG/4 ML VIAL 2 MG IV PUSH (18:47)
[2024-12-12] MEDS: AZITHROMYCIN 250 MG TABLET PO (20:59)
[2024-12-12] MEDS: guaiFENesin/CODEINE (*CRX) 200/20 MG 10 ML SYRUP PO (21:02)
[2024-12-13] VITALS (10 sets, daily range): BP systolic 112–134; BP diastolic 55–86; PULSE 77–114; RESP 15–18; TEMP 36.6–36.8; O2SAT 98–100
[2024-12-13 05:17] LABS: Hematocrit 28.8 % (37.0-47.0); Hemoglobin 8.5 g/dL (12.0-15.0); Mean Corpuscular HGB Conc 29.5 g/dl (32-36); Mean Corpuscular Hemoglobin 26.0 pg (26-34); Mean Corpuscular Volume 88.1 fl (80-100); Platelet Count Result 261 k/mm3 (150-375); Red Blood Count 3.27 M/mm3 (4.2-5.4); White Blood Count 5.3 K/mm3 (4.5-10.0)
[2024-12-13 05:32] LABS: Albumin Level 2.9 g/dL (3.5-5.1); Anion Gap 8 mmol/L (4-12); Blood Urea Nitrogen 58 mg/dL (7-17); Calcium 8.5 mg/dL (8.4-10.2); Carbon Dioxide 25 mmol/L (22-30); Chloride 102 mmol/L (98-107); Estimated CRCL calculation 18 ml/min; Estimated Glomerular Filt Rate 15; Glucose 102 mg/dL (65-110); Magnesium 2.4 mg/dL (1.6-2.3); Potassium 4.5 mmol/L (3.4-5.0); Sodium 135 mmol/L (137-145)
[2024-12-13] MEDS: ACETAMINOPHEN 500 MG TABLET 1000 MG PO ×2 (06:07→21:06)
[2024-12-13] MEDS: FERROUS SULFATE 325 MG TABLET PO (08:37)
[2024-12-13] MEDS: BENZONATATE 100 MG CAPSULE PO ×3 (08:38→17:01)
[2024-12-13] MEDS: CYANOCOBALAMIN 1,000 MCG TABLET 1000 MCG PO (08:38)
[2024-12-13] MEDS: CLOPIDOGREL BISULFATE 75 MG TABLET PO (08:38)
[2024-12-13] MEDS: EPOETIN ALFA-EPBX 10,000 UNITS/ML VIAL 10000 UNITS SUB-Q (08:49)
--- NOTE | 2024-12-13 13:27 | P.PNIM_ITS ---
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 Status: Acute (2) Chronic kidney disease, stage 3: Code(s): N18.30 - Chronic kidney disease, stage 3 unspecified Status: Acute (3) UTI (urinary tract infection): Code(s): N39.0 - Urinary tract infection, site not specified Status: Acute (4) Anemia: Code(s): D64.9 - Anemia, unspecified Status: Acute (5) SOB (shortness of breath): Code(s): R06.02 - Shortness of breath Status: Acute (6) ANDRES (acute kidney injury): Code(s): N17.9 - Acute kidney failure, unspecified Status: Acute (7) Acute on chronic combined systolic (congestive) and diastolic (congestive) heart failure: Code(s): I50.43 - Acute on chronic combined systolic (congestive) and diastolic (congestive) heart failure Status: Acute Plan 59-year-old female with a history of hypertension, hyperlipidemia, CKD stage 3 (followed by Dr. Nicole at [place]), insulin-dependent diabetes mellitus, depression and anxiety, CAD, history of ST-elevation [place] status post POBA small caliber diagonal branch 05/08/2016, history of splenic infarct, polymyalgia rheumatica, untreated DOUG per the patient's wishes, presents with shortness of b reath which has been steadily worsening over many weeks. She was told by her PCP she has low hemoglobin secondary to iron deficiency. She was scheduled for outpatient blood transfusion and iron infusion which she did not get yet. She also complained of dysuria on presentation and a cough of clear sputum production. Denied any chest pain. Thinks she had heart failure but never diagnosed, she was taken off lasix some time ago and is concerned about worsening leg swelling. She was taken off of b-blockers because they caused dizziness and doesn't want to go back on. In the ER she was given IV iron, she was given Rocephin and azithromycin. She had sinus tachycardia and elevated troponin but no significant ST changes on EKG. ----- Acute on chronic anemia: Suspected to be iron deficiency in the outpatient setting. 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 Iron and TIBC low, ferritin high although. Received IV iron on admission. Hemoglobin was 7.6. Hemoglobin dropped to 6.9, status post 1 unit PRBC on 12/09/2028. Has been stable since. Continue daily hemoglobin monitoring. Stool occult still pending. Continue ferrous sulfate at 325 mg p.o. q.day. hematology consult noted. Started on vitamin B12, started on Procrit. Follow-up in Hematology office Shortness of breath: Resolved. Recommend outpatient therapy. Multifactorial etiology including fluid overload, anemia, suspected community-acquired pneumonia. Ceftriaxone switch to Augmentin, continue with azithromycin for total 5 day course Acute on chronic congestive heart failure combined systolic and diastolic EF 30- 35%: BNP 15305 on admission. Complaint of shortness of breath and increased leg swelling. Echocardiogram on 12/10/2024: Summary 1. Left ventricular systolic function is moderately reduced, estimated at 30-35. 2. The left ventricular diastolic function is grade III diastolic dysfunction. 3. Left atrial chamber dimension is mildly enlarged. 4. There is trace aortic valve regurgitation. 5. There is mild mitral valve regurgitation. 6. There is trace tricuspid valve regurgitation. 7. Moderate pulmonary hypertension, estimated pulmonary arterial systolic pressure is 49 mmHg. 8. There is trace pulmonic regurgitation. Cardiology recommendations noted. Undergoing pharmacological nuclear stress test. Started on furosemide 40 mg IV b.i.d. on 12/11/2024. Avoiding WESTON- inhibitor, ARB, Entresto in light of advanced kidney failure. Blood pressure on the soft side, continue Coreg 3.125 mg p.o. b.i.d. and consider hydralazine and isosorbide dinitrate. ANDRES and CKD: Patient tells me her baseline is 2.2. Presented with serum creatinine 2.5, and has increased since. Nephrology recommendations noted. Continue Lasix. Trend renal function. Daily weights, strict I/O. Follows with Dr. Pepe Nicole at [facility] Hyperkalemia: 5.3 on 12/10/2024. Resolved status post Lokelma 5 mg p.o. x1 and Lasix. UTI: Present on admission, complained of dysuria. Urinalysis indicative of infection. Urine culture negative. Ceftriaxone started on 12/08/2024, switch to Augmentin to finish 5 days. Continue azithromycin, started on 12/07/2024. 12/07/2024 blood culture x2, no growth to date. Dysuria resolved. Insulin-dependent diabetes mellitus: Patient wanted to use her glucose monitoring and insulin pump. Risks versus benefits discussed, she signed the agreement. Continue Accu-Cheks a.c. HS otherwise. CAD status post balloon angioplasty, hyperlipidemia: Continue Repatha on discharge. Resume Plavix and monitor anemia. 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 She has stiffness and pain in the morning which improves throughout the day. Continue PT/OT. 12/13/2024: Serum creatinine elevated again. Output not recorded properly. Patient does report she has some urine output. Coordinated her care with Cardiology Nephrology. Patient will be transferred back to IMU for Milrinone GTT. Versus benefits of this discussed. Asked nursing staff to record strict intake/output. Hemoglobin stable. ----- Full code Medical floor. Saline lock IV Strict intake/output, daily weights. Heart healthy diabetic diet SCDs. Start heparin GTT 5000 units subcutaneous on 12/13/2024. Pending disposition, cardiology nephrology following. Time Spent With Patient Time with patient: Greater than 35 minutes Subjective Date/time seen: 12/13/24 13:27 Interval history: No major acute overnight events. Patient denies shortness of breath. Output recordings are inaccurate. Patient reports she has had good some urine output. She believes her swelling is improved. Denies shortness of breath, chest pain. Review of Systems Review of Systems: All systems reviewed & are unremarkable except as noted in HPI and below (Subjective) Exam Const: General: comfortable and no acute distress Other: A&O x3 HENMT: Mouth: Yes moist mucous membranes Eyes: Pupils: Equal, round and reactive pupils present Neck: Neck: supple Resp: Effort & Inspection: normal respiratory effort Other: Bibasilar crackles Cardio: Rate: regular rate Rhythm: regular rhythm GI: Inspection: non-distended GI Palp: Yes Soft to palpation Neuro: Motor exam (neuro): 5/5 motor strength present throughout Extrem: Other: Minimal pitting edema bilateral lower extremities Objective Data Vital Signs Vital Signs: Vital Signs - 24 hr 12/12/24 16:00 12/12/24 20:38 12/12/24 20:58 Temperature 97.7 F 97 F L Pulse Rate 76 75 72 Respiratory Rate 18 16 Blood Pressure 105/48 L 126/59 L Pulse Oximetry 100 100 12/13/24 05:42 12/13/24 08:37 Temperature 97.8 F Pulse Rate 77 80 Respiratory Rate 18 Blood Pressure 130/55 L Pulse Oximetry 98 Intake/Output Intake/Output: Intake & Output 12/10/24 12/11/24 12/12/24 12/13/24 23:59 23:59 23:59 23:59 Intake Total 1670 1350 720 390 Output Total 1100 3 Balance 570 1350 720 387 Meds/Results Medications: Active Medications Generic Name Dose Route Start Last Admin Trade Name Freq PRN Reason Stop Dose Admin Acetaminophen 1,000 mg 12/08/24 11:31 12/13/24 06:07 Acetaminophen 500 Mg Tablet PO 1,000 mg Q6H PRN Administration Mild Pain (1-3) or Fever Artificial Tears 1 drop 12/09/24 15:34 Artificial Tears Ophth Soln 15 Ml Bottle EACH EYE QID PRN Dry Eye(s) Benzonatate 100 mg 12/10/24 17:00 12/13/24 12:05 Benzonatate 100 Mg Capsule PO 100 mg TID LAQUITA Administration Carvedilol 3.125 mg 12/11/24 21:00 12/13/24 08:37 Carvedilol 3.125 Mg Tablet PO 3.125 mg Q12HR LAQUITA Administration Clopidogrel Bisulfate 75 mg 12/11/24 09:00 12/13/24 08:38 Clopidogrel Bisulfate 75 Mg Tablet PO 75 mg DAILY LAQUITA Administration Cyanocobalamin 1,000 mcg 12/11/24 09:00 12/13/24 08:38 Cyanocobalamin 1,000 Mcg Tablet PO 1,000 mcg QAM [facility] Administration Epoetin Wesley-epbx 10,000 units 12/13/24 09:00 12/13/24 08:49 Epoetin Wesley-Epbx 10,000 Units/Ml Vial SUB-Q 10,000 units TUTHSA@09 [facility] Administration Ferrous Sulfate 325 mg 12/09/24 09:00 12/13/24 08:37 Ferrous Sulfate 325 Mg Tablet PO 325 mg DAILY LAQUITA Administration Guaifenesin/Codeine Phosphate 10 ml 12/08/24 23:57 12/12/24 21:02 Guaifenesin/Codeine (*Crx) 200/20 Mg 10 Ml Syrup PO 10 ml Q6H PRN Administration Cough Milrinone Lactate 20 mg/ 100 mls @ 8.618 mls/hr 12/13/24 13:30 Dextrose IV CONT .[id number] LAQUITA 0.375 MCG/KG/MIN Furosemide 100 mg/ Sodium 100 mls @ 3.83 mls/hr 12/13/24 13:05 Chloride IV CONT .Q24H LAQUITA 0.05 MG/KG/HR Insulin Human Regular 1 each 12/09/24 06:00 12/13/24 08:36 Home Medication Insulin XX Not Given DAILY@0600 LAQUITA Lorazepam 0.5 mg 12/08/24 17:47 Lorazepam (*Crx) 0.5 Mg Tablet PO DAILY PRN Anxiety Radiology Results: ITS Impressions Chest X-Ray 12/08/24 05:55 IMPRESSION: 1. Bibasilar atelectasis and/or airspace disease, with small left pleural effusion. Lexiscan Stress Test 12/12/24 13:37 IMPRESSION: 1. Large distribution of severe infarct involving the apical to mid anterior segments, apical lateral segment, mid anterolateral and mid inferolateral segments, and inferior apical to mid segments of left ventricle 2. Global hypokinesis left ventricular ejection fraction measuring 30%. Labs Labs: Laboratory Results - last 24 hr 12/12/24 12/12/24 12/13/24 16:44 20:42 04:44 WBC 5.3 RBC 3.27 L Hgb 8.5 L Hct 28.8 L MCV 88.1 MCH 26.0 MCHC 29.5 L RDW 17.5 H Plt Count 261 MPV 9.5 Sodium 135 L Potassium 4.5 Chloride 102 Carbon Dioxide 25 Anion Gap 8 BUN 58 H Creatinine 3.24 H Estim Creat Clear Calc 18 Estimated GFR 15 L Glucose 102 POC Capillary Glucose 160 H 88 Calcium 8.5 Phosphorus 5.3 H Magnesium 2.4 H Albumin 2.9 L 12/13/24 12/13/24 08:03 11:19 WBC RBC Hgb Hct MCV MCH MCHC RDW Plt Count MPV Sodium Potassium Chloride Carbon Dioxide Anion Gap BUN Creatinine Estim Creat Clear Calc Estimated GFR Glucose POC Capillary Glucose 106 H 81 Calcium Phosphorus Magnesium Albumin
--- NOTE | 2024-12-13 13:33 | PM.PNNEP ---
Progress Note: A&P Assessment and Plan (1) Acute kidney injury: Code(s): N17.9 - Acute kidney failure, unspecified Status: Acute Assessment and Plan: as note by admission creatinine (creatinine 2.63mg/dL) worsening noted by lab trend suspect several issues playing a role: anemia urinary tract infection CHF/decline in EF (element of cardiorenal syndrome) need for IV diuretics possible progression of disease (?) random fluctuations in CKD due to acute illness... other (?) follow trend of repeat labs and UOP (2) Stage 4 chronic kidney disease: Code(s): N18.4 - Chronic kidney disease, stage 4 (severe) Status: Chronic Assessment and Plan: baseline creatinine runs around 2.0 - 2.4mg/dl slow decline over last the 3 years due disease progression along withrecurrent episodes of ANDRES, some of which linked to excess Lasix use, Bactrim use. and other medications (i.e. azathioprine) off SGLT2 inhibtors due to frequent UTIs last outpatinet creatinine 2.20mg/dl in October 2024 due to hypertension and diabetes mellitus well informed of her kidney disease - she is aware of the need for good glycemic and blood pressure control as well as adequate hydration may have to accept a higher creatinine in an effort to achieve/maintain euvolemia follows with Dr. Pepe Nicole at [facility] (3) SOB (shortness of breath): Code(s): R06.02 - Shortness of breath Status: Acute Assessment and Plan: seems stable if not better several issues contributing: anemia pleural effusion CHF pneumonia(?) other (?) continue current therapy as outlined (4) CHF (congestive heart failure): Code(s): I50.9 - Heart failure, unspecified Status: Acute Assessment and Plan: no reported history but does have known CKD was on lasix PRN for LE edema last Echo (August 2023) noted: normal global left ventricular systolic function ejection fraction is measured at 66 % impaired diastolic relaxation Grade I no significant valvular dysfunction repeat Echo (12/10/24): eft ventricular systolic function is moderately reduced, estimated at 30 - 35% lleft ventricular diastolic function is grade III diastolic dysfunction trace aortic valve regurgitation mild mitral valve regurgitation trace tricuspid valve regurgitation moderate pulmonary hypertension, estimated pulmonary arterial systolic pressure is 49 mmHg trace pulmonic regurgitation s/p IV bumex + metolazone on 12/12 Cardiology following discussed possible ionotropic support + IV diuretics if patient amenable (5) Anemia: Code(s): D64.9 - Anemia, unspecified Status: Acute Assessment and Plan: was scheduled for outpatient PRBC transfusion + IV iron evidence of iron deficiency by October 2024 labs s/p PRBC transfusion (1 unit to date) Hem/Onc recommendations noted Epogen while hospitalized follow trend of H/H (6) UTI (urinary tract infection): Code(s): N39.0 - Urinary tract infection, site not specified Status: Acute Assessment and Plan: admission UA suggestive however, urine culture noted (negative) on antibiotics (7) Essential hypertension: Code(s): I10 - Essential (primary) hypertension Status: Chronic Assessment and Plan: reasonable control losartan on hold (due to #1) follow trend of hemodynamics (8) Type 2 diabetes mellitus with chronic kidney disease: Code(s): E11.22 - Type 2 diabetes mellitus with diabetic chronic kidney disease Status: Chronic Assessment and Plan: follow accu-cheks glycemic control per hospitalist Will continue to follow. Subjective Date/time seen: 12/13/24 13:33 Interval history: Follow-up for acute kidney injury/acute renal failure on chronic kidney disease. Better urine output overnight with IV bumex + metolazone although difficult to know how much (I/Os not documented well) but she states her swelling/edema has greatly improved; renal function/creatinine continues to fluctuate as noted by trend of labs; no other acute issues/events overnight or earlier this morning. Exam Narrative: General: WD/WN female in NAD Heart: normal S1 and S2; no rub Lungs: decreased at bases Abdomen: soft, nontender, nondistended, positive bowel sounds Extremities: no cyanosis or clubbing; trace edema Skin: no rash Objective Data Vital Signs Vital Signs: Vital Signs Temp Pulse Resp BP Pulse Ox 12/13/24 08:37 80 12/13/24 05:42 97.8 F 77 18 130/55 L 98 12/12/24 20:58 72 12/12/24 20:38 97 F L 75 16 126/59 L 100 Intake/Output Intake/Output: Intake & Output 12/10/24 12/11/24 12/12/24 12/13/24 23:59 23:59 23:59 23:59 Intake Total 1670 1350 720 870 Output Total 1100 3 Balance 570 1350 720 867 Meds/Results Medications: Active Medications Generic Name Dose Route Start Last Admin Trade Name Freq PRN Reason Stop Dose Admin Acetaminophen 1,000 mg 12/08/24 11:31 12/13/24 06:07 Acetaminophen 500 Mg Tablet PO 1,000 mg Q6H PRN Administration Mild Pain (1-3) or Fever Artificial Tears 1 drop 12/09/24 15:34 Artificial Tears Ophth Soln 15 Ml Bottle EACH EYE QID PRN Dry Eye(s) Benzonatate 100 mg 12/10/24 17:00 12/13/24 17:01 Benzonatate 100 Mg Capsule PO 100 mg TID LAQUITA Administration Carvedilol 3.125 mg 12/11/24 21:00 12/13/24 08:37 Carvedilol 3.125 Mg Tablet PO 3.125 mg Q12HR LAQUITA Administration Clopidogrel Bisulfate 75 mg 12/11/24 09:00 12/13/24 08:38 Clopidogrel Bisulfate 75 Mg Tablet PO 75 mg DAILY LAQUITA Administration Cyanocobalamin 1,000 mcg 12/11/24 09:00 12/13/24 08:38 Cyanocobalamin 1,000 Mcg Tablet PO 1,000 mcg QAM LAQUITA Administration Epoetin Wesley-epbx 10,000 units 12/13/24 09:00 12/13/24 08:49 Epoetin Wesley-Epbx 10,000 Units/Ml Vial SUB-Q 10,000 units TUTHSA@09 LAQUITA Administration Ferrous Sulfate 325 mg 12/09/24 09:00 12/13/24 08:37 Ferrous Sulfate 325 Mg Tablet PO 325 mg DAILY LAQUITA Administration Furosemide 40 mg 12/13/24 17:00 12/13/24 17:01 Furosemide Inj 40 Mg/4 Ml Vial IV PUSH 40 mg BID LAQUITA Administration Guaifenesin/Codeine Phosphate 10 ml 12/08/24 23:57 12/12/24 21:02 Guaifenesin/Codeine (*Crx) 200/20 Mg 10 Ml Syrup PO 10 ml Q6H PRN Administration Cough Milrinone Lactate 20 mg/ 100 mls @ 8.618 mls/hr 12/13/24 13:30 12/13/24 16:09 Dextrose IV CONT 0.375 mcg/kg/min .[id number] LAQUITA 8.62 mls/hr 0.375 MCG/KG/MIN Administration Insulin Human Regular 1 each 12/09/24 06:00 12/13/24 08:36 Home Medication Insulin XX Not Given DAILY@0600 LAQUITA Lorazepam 0.5 mg 12/08/24 17:47 Lorazepam (*Crx) 0.5 Mg Tablet PO DAILY PRN Anxiety Radiology Results: ITS Impressions Chest X-Ray 12/08/24 05:55 IMPRESSION: 1. Bibasilar atelectasis and/or airspace disease, with small left pleural effusion. Lexiscan Stress Test 12/12/24 13:37 IMPRESSION: 1. Large distribution of severe infarct involving the apical to mid anterior segments, apical lateral segment, mid anterolateral and mid inferolateral segments, and inferior apical to mid segments of left ventricle 2. Global hypokinesis left ventricular ejection fraction measuring 30%. Labs Labs: Laboratory Tests 12/13/24 04:44 12/13/24 04:44 Calcium 8.5 Phosphorus 5.3 H Magnesium 2.4 H Albumin 2.9 L Microbiology 12/08/24 00:14 Blood Blood Culture - Preliminary
--- NOTE | 2024-12-13 13:33 | P.PNNP_ITS ---
Progress Note: A&P Assessment and Plan (1) Acute kidney injury: Code(s): N17.9 - Acute kidney failure, unspecified Status: Acute Assessment and Plan: * as note by admission creatinine (creatinine 2.63mg/dL) * worsening noted by lab trend * suspect several issues playing a role: * anemia * urinary tract infection * CHF/decline in EF (element of cardiorenal syndrome) * need for IV diuretics * possible progression of disease (?) * random fluctuations in CKD due to acute illness... * other (?) * follow trend of repeat labs and UOP (2) Stage 4 chronic kidney disease: Code(s): N18.4 - Chronic kidney disease, stage 4 (severe) Status: Chronic Assessment and Plan: * baseline creatinine runs around 2.0 - 2.4mg/dl * slow decline over last the 3 years due disease progression along withrecurrent episodes of ANDRES, some of which linked to excess Lasix use, Bactrim use. and other medications (i.e. azathioprine) * off SGLT2 inhibtors due to frequent UTIs * last outpatinet creatinine 2.20mg/dl in October 2024 * due to hypertension and diabetes mellitus * well informed of her kidney disease - she is aware of the need for good glycemic and blood pressure control as well as adequate hydration * may have to accept a higher creatinine in an effort to achieve/maintain euvolemia * follows with Dr. Pepe Nicole at [facility] (3) SOB (shortness of breath): Code(s): R06.02 - Shortness of breath Status: Acute Assessment and Plan: * seems stable if not better * several issues contributing: * anemia * pleural effusion * CHF * pneumonia(?) * other (?) * continue current therapy as outlined (4) CHF (congestive heart failure): Code(s): I50.9 - Heart failure, unspecified Status: Acute Assessment and Plan: * no reported history but does have known CKD * was on lasix PRN for LE edema * last Echo (August 2023) noted: * normal global left ventricular systolic function * ejection fraction is measured at 66 % * impaired diastolic relaxation Grade I * no significant valvular dysfunction * repeat Echo (12/10/24): * eft ventricular systolic function is moderately reduced, estimated at 30 - 35% * lleft ventricular diastolic function is grade III diastolic dysfunction * trace aortic valve regurgitation * mild mitral valve regurgitation * trace tricuspid valve regurgitation * moderate pulmonary hypertension, estimated pulmonary arterial systolic pressure is 49 mmHg * trace pulmonic regurgitation * s/p IV bumex + metolazone on 12/12 * Cardiology following * discussed possible ionotropic support + IV diuretics if patient amenable (5) Anemia: Code(s): D64.9 - Anemia, unspecified Status: Acute Assessment and Plan: * was scheduled for outpatient PRBC transfusion + IV iron * evidence of iron deficiency by October 2024 labs * s/p PRBC transfusion (1 unit to date) * Hem/Onc recommendations noted * Epogen while hospitalized * follow trend of H/H (6) UTI (urinary tract infection): Code(s): N39.0 - Urinary tract infection, site not specified Status: Acute Assessment and Plan: * admission UA suggestive * however, urine culture noted (negative) * on antibiotics (7) Essential hypertension: Code(s): I10 - Essential (primary) hypertension Status: Chronic Assessment and Plan: * reasonable control * losartan on hold (due to #1) * follow trend of hemodynamics (8) Type 2 diabetes mellitus with chronic kidney disease: Code(s): E11.22 - Type 2 diabetes mellitus with diabetic chronic kidney disease Status: Chronic Assessment and Plan: * follow accu-cheks * glycemic control per hospitalist Will continue to follow. L Subjective Date/time seen: 12/13/24 13:33 Interval history: Follow-up for acute kidney injury/acute renal failure on chronic kidney disease. Better urine output overnight with IV bumex + metolazone although difficult to know how much (I/Os not documented well) but she states her swelling/edema has greatly improved; renal function/creatinine continues to fluctuate as noted by trend of labs; no other acute issues/events overnight or earlier this morning. Exam 2 Narrative: General: WD/WN female in NAD Heart: normal S1 and S2; no rub Lungs: decreased at bases Abdomen: soft, nontender, nondistended, positive bowel sounds Extremities: no cyanosis or clubbing; trace edema Skin: no rash Objective Data Vital Signs Vital Signs: Vital Signs Temp Pulse Resp BP Pulse Ox 12/13/24 08:37 80 12/13/24 05:42 97.8 F 77 18 130/55 L 98 12/12/24 20:58 72 10/01/25 20:38 97 F L 75 16 126/59 L 100 Intake/Output Intake/Output: Intake & Output 12/10/24 12/11/24 12/12/24 12/13/24 23:59 23:59 23:59 23:59 Intake Total 1670 1350 720 870 Output Total 1100 3 Balance 570 1350 720 867 Meds/Results Medications: Active Medications Generic Name Dose Route Start Last Admin Trade Name Freq PRN Reason Stop Dose Admin Acetaminophen 1,000 mg 12/08/24 11:31 12/13/24 06:07 Acetaminophen 500 Mg Tablet PO 1,000 mg Q6H PRN Administration Mild Pain (1-3) or Fever Artificial Tears 1 drop 12/09/24 15:34 Artificial Tears Ophth Soln 15 Ml Bottle EACH EYE QID PRN Dry Eye(s) Benzonatate 100 mg 12/10/24 17:00 12/13/24 17:01 Benzonatate 100 Mg Capsule PO 100 mg TID LAQUITA Administration Carvedilol 3.125 mg 12/11/24 21:00 12/13/24 08:37 Carvedilol 3.125 Mg Tablet PO 3.125 mg Q12HR LAQUITA Administration Clopidogrel Bisulfate 75 mg 12/11/24 09:00 12/13/24 08:38 Clopidogrel Bisulfate 75 Mg Tablet PO 75 mg DAILY LAQUITA Administration Cyanocobalamin 1,000 mcg 12/11/24 09:00 12/13/24 08:38 Cyanocobalamin 1,000 Mcg Tablet PO 1,000 mcg QAM LAQUITA Administration Epoetin Wesley-epbx 10,000 units 12/13/24 09:00 12/13/24 08:49 Epoetin Wesley-Epbx 10,000 Units/Ml Vial SUB-Q 10,000 units TUTHSA@09 LAQUITA Administration Ferrous Sulfate 325 mg 12/09/24 09:00 12/13/24 08:37 Ferrous Sulfate 325 Mg Tablet PO 325 mg DAILY LAQUITA Administration Furosemide 40 mg 12/13/24 17:00 12/13/24 17:01 Furosemide Inj 40 Mg/4 Ml Vial IV PUSH 40 mg BID LAQUITA Administration Guaifenesin/Codeine Phosphate 10 ml 12/08/24 23:57 12/12/24 21:02 Guaifenesin/Codeine (*Crx) 200/20 Mg 10 Ml Syrup PO 10 ml Q6H PRN Administration Cough Milrinone Lactate 20 mg/ 100 mls @ 8.618 mls/hr 12/13/24 13:30 12/13/24 16:09 Dextrose IV CONT 0.375 mcg/kg/min .[id number] LAQUITA 8.62 mls/hr 0.375 MCG/KG/MIN Administration Insulin Human Regular 1 each 12/09/24 06:00 12/13/24 08:36 Home Medication Insulin XX Not Given DAILY@0600 LAQUITA Lorazepam 0.5 mg 12/08/24 17:47 Lorazepam (*Crx) 0.5 Mg Tablet PO DAILY PRN Anxiety Radiology Results: ITS Impressions Chest X-Ray 12/08/24 05:55 IMPRESSION: 1. Bibasilar atelectasis and/or airspace disease, with small left pleural effusion. Lexiscan Stress Test 12/12/24 13:37 IMPRESSION: 1. Large distribution of severe infarct involving the apical to mid anterior segments, apical lateral segment, mid anterolateral and mid inferolateral segments, and inferior apical to mid segments of left ventricle 2. Global hypokinesis left ventricular ejection fraction measuring 30%. Labs Labs: Laboratory Tests 12/13/24 04:44 12/13/24 04:44 Calcium 8.5 Phosphorus 5.3 H Magnesium 2.4 H Albumin 2.9 L Microbiology 12/08/24 00:14 Blood Blood Culture - Preliminary
--- NOTE | 2024-12-13 15:51 | PC.NURSE ---
Pt refused Milrinone. Pt was education on the risks. Pt stated she prefers to be transferred to [place]. Hospitalist and Cardiology notified.
[2024-12-13] MEDS: MILRINONE LACTATE 20 MG in DEXTROSE 5% 80 ML 8.62 MG IV CONT (16:09)
[2024-12-13] MEDS: FUROSEMIDE INJ 40 MG/4 ML VIAL IV PUSH (17:01)
[2024-12-14] VITALS (22 sets, daily range): BP systolic 101–134; BP diastolic 40–66; PULSE 80–103; RESP 14–20; TEMP 36.6–37.1; O2SAT 97–100
[2024-12-14] MEDS: MILRINONE LACTATE 20 MG in DEXTROSE 5% 80 ML 8.62 MG IV CONT ×2 (01:49→13:42)
[2024-12-14 04:30] LABS: Hematocrit 27.4 % (37.0-47.0); Hemoglobin 8.2 g/dL (12.0-15.0); Mean Corpuscular HGB Conc 29.9 g/dl (32-36); Mean Corpuscular Hemoglobin 25.9 pg (26-34); Mean Corpuscular Volume 86.4 fl (80-100); Platelet Count Result 245 k/mm3 (150-375); Red Blood Count 3.17 M/mm3 (4.2-5.4); White Blood Count 5.3 K/mm3 (4.5-10.0)
[2024-12-14 04:44] LABS: Albumin Level 2.9 g/dL (3.5-5.1); Anion Gap 8 mmol/L (4-12); Blood Urea Nitrogen 62 mg/dL (7-17); Calcium 8.4 mg/dL (8.4-10.2); Carbon Dioxide 24 mmol/L (22-30); Chloride 102 mmol/L (98-107); Estimated CRCL calculation 17 ml/min; Estimated Glomerular Filt Rate 14; Glucose 107 mg/dL (65-110); Magnesium 2.3 mg/dL (1.6-2.3); Potassium 4.0 mmol/L (3.4-5.0); Sodium 134 mmol/L (137-145)
[2024-12-14] MEDS: FUROSEMIDE INJ 40 MG/4 ML VIAL IV PUSH (09:59)
[2024-12-14] MEDS: FERROUS SULFATE 325 MG TABLET PO (09:59)
[2024-12-14] MEDS: CLOPIDOGREL BISULFATE 75 MG TABLET PO (09:59)
[2024-12-14] MEDS: BENZONATATE 100 MG CAPSULE PO ×2 (09:59→22:01)
[2024-12-14] MEDS: CYANOCOBALAMIN 1,000 MCG TABLET 1000 MCG PO (10:00)
[2024-12-14] MEDS: ACETAMINOPHEN 500 MG TABLET 1000 MG PO ×3 (10:10→22:00)
[2024-12-14 11:09] LABS: Immunoglobulin A, Qn <5 mg/dL (87-352); Immunoglobulin G, Qn 107 mg/dL (586-1602); Immunoglobulin M, Qn <5 mg/dL (26-217)
--- NOTE | 2024-12-14 11:20 | PM.PNCARD ---
Progress Note: A&P Assessment and Plan (1) Ischemic cardiomyopathy: Code(s): I25.5 - Ischemic cardiomyopathy Status: Acute (2) Acute on chronic combined systolic (congestive) and diastolic (congestive) heart failure: Code(s): I50.43 - Acute on chronic combined systolic (congestive) and diastolic (congestive) heart failure Status: Acute (3) Stage 4 chronic kidney disease: Code(s): N18.4 - Chronic kidney disease, stage 4 (severe) Status: Chronic (4) Iron deficiency anemia: Code(s): D50.9 - Iron deficiency anemia, unspecified Status: Acute Assessment and Plan: Assessment; 1. Patient with known history of previous myocardial infarction presents with symptoms of congestive heart failure. Echocardiogram reveals systolic function reduced 30-35%. Findings are most consistent with ischemic cardiomyopathy with previous anteroseptal myocardial infarction based on EKG. 2. Increasing shortness of breath and leg edema. BNP is markedly elevated. Echocardiogram shows reduced systolic function in the range of 30-35%. Findings are suggestive of acute on chronic systolic and diastolic heart failure. Echocardiogram also suggests grade 3 diastolic dysfunction. 3. Known history of previous myocardial infarction in the past. EKG suggests old anteroseptal myocardial infarction. Rule out progression of coronary artery disease. 4. Marked anemia with hemoglobin at 7.7. MCV is normal. WBC count is normal. This could be secondary to chronic kidney failure related anemia carotid. However underlying iron deficiency anemia and other disease cannot be ruled out. 5. History of chronic stage IIIB kidney disease. BUN was 15 creatinine was 3.07 on admission with GFR at 15 suggesting stage 4 chronic kidney disease. 6. Urinary symptoms on admission. Rule out urinary tract infection Recommendations: 1. Echocardiogram was reviewed. Severely reduced ejection fraction range of 30-35%. EKG shows old anteroseptal myocardial infarction. Patient needs a pharmacological nuclear stress test to evaluate for underlying ischemic heart disease and assess for severe LV systolic dysfunction. -Nuclear stress test completed today. Baseline EKG does show deep T-wave inversion inferolaterally spread. Patient had no chest pain but had emesis during the Lexiscan stress test. 2. Patient currently on IV inotrope with Milrinone at 0.375 microgram/kg per minute and tolerating. Patient is also on Lasix 40 mg b.i.d. and tolerating. BUN is 16 creatinine increased to 3.31. Clinically patient has no leg edema and appears euvolemic. Will discontinue IV Lasix at this point and only continue Milrinone. Blood pressure is 106/51 heart rate is 87 per minute 3. Patient needs renal consultation for evaluation of advanced kidney failure stage IV. Patient evaluated by Nephrology Service and IV diuretics were adjusted. 4. Laboratory data reviewed from today. Sodium 134, potassium 4.0, BUN 62 and creatinine 3.3. GFR is 14. 5. Nuclear stress test performed on 12/12/2024 reveals extensive anterior wall myocardial infarction without reversible defect an ejection fraction of 30%. Multiple weeks perfusion defects noted involving mid and the, apical lateral, mid anterolateral, mid inferolateral, inferior apical and mid segments of left ventricle. This is consistent with ischemic cardiomyopathy. 6. Continue with guideline directed medical therapy. Patient is currently on carvedilol 3.125 mg p.o. b.i.d., Plavix 75 mg daily, IV Milrinone and Lasix. Will hold Lasix for now and encourage patient to take oral fluids. Follow BUN and creatinine. Discussed with Nephrology Service yesterday. Subjective Date/time seen: 12/14/24 11:20 Interval history: Review of HPI: 59-year-old white female admitted via emergency room on 12/07/2024 with complaints of shortness of breath. Patient states that she has worsening shortness of breath for about 1 week now worse with activity he. Patient apparently saw her pre billing clinician about a week ago and was told that her hemoglobin is low due to iron deficiency. Patient was scheduled for outpatient blood transfusion. Patient was also recently started on Repatha. Patient now has increasing shortness of breath, leg edema and urinary symptoms. Denied any complaints of fever chills or chest pain. Past medical history is significant for history of myocardial infarction, coronary artery disease, hyperlipidemia and chronic stage 3 kidney disease as well as hypertension. Admitting blood pressure was 140/76 mm of mercury and heart rate was 116 per minute. Patient had low-grade fever 100.0 F. Admitting laboratory data reveals sodium 137, potassium 4.6, BUN is 38, creatinine is 2.63. WBC count 6.7, hemoglobin 7.6, platelets are normal. Admitting proBNP was more than 30,000 and troponin was 0.876 on 12/07/2024 Patient examined at the bedside. Subjective: Patient was examined at the bedside. Patient was started on IV Milrinone at 0.375 microgram/kg per minute. Patient is tolerating medication so far without cardiac arrhythmias or hypotension. Patient is feeling overall better without any leg edema. Urine output is stable. Review of Systems Review of Systems: Twelve point review of system was completed. Pertinent positive and negative findings per HPI. Positive for cough. Negative for chest pain or shortness of breath. Negative for leg edema or orthopnea. Exam Narrative: Patient exhibited the bedside. Patient is awake alert appears comfortable. No significant chest pain or orthopnea. Head neck examination is unremarkable. Sclerae nonicteric. ENT examination is negative. Neck is supple. There is no JVD or carotid bruit. Lungs revealed bilateral rhonchi but decreased from yesterday. No wheezing noted. Heart sounds reveal normal S1-S2 with a soft systolic murmur. There is no S3 or S4. Abdomen is soft nontender. There is no hepatosplenomegaly present bowel sounds present throughout Extremities reveal no leg edema. Neurological examination is intact. Objective Data Vital Signs Vital Signs: Vital Signs - 24 hr 12/13/24 15:10 12/13/24 16:00 12/13/24 16:09 Temperature 36.8 C Pulse Rate 86 85 85 Respiratory Rate 16 Blood Pressure 134/61 134/61 Pulse Oximetry 100 Oxygen Delivery Fraction of Inspired Oxygen 12/13/24 18:00 12/13/24 18:00 12/13/24 18:01 Temperature Pulse Rate 96 100 96 Respiratory Rate 18 Blood Pressure 126/86 126/86 Pulse Oximetry 98 Oxygen Delivery Fraction of Inspired Oxygen 12/13/24 20:00 12/13/24 20:00 12/13/24 20:00 Temperature 36.6 C Pulse Rate 114 H 90 98 Respiratory Rate 15 18 Blood Pressure 127/58 L 127/58 L Pulse Oximetry 98 98 Oxygen Delivery Room Air Fraction of Inspired Oxygen 21 12/13/24 21:06 12/13/24 22:00 12/13/24 22:00 Temperature Pulse Rate 98 92 92 Respiratory Rate 18 Blood Pressure 112/55 L Pulse Oximetry 98 Oxygen Delivery Fraction of Inspired Oxygen 12/13/24 22:00 12/14/24 00:00 12/14/24 00:00 Temperature 36.8 C Pulse Rate 92 103 H 93 Respiratory Rate 16 16 Blood Pressure 112/55 L 124/66 Pulse Oximetry 100 100 Oxygen Delivery Room Air Fraction of Inspired Oxygen 21 12/14/24 00:00 12/14/24 00:00 12/14/24 01:32 Temperature Pulse Rate 93 103 H 91 Respiratory Rate Blood Pressure 124/66 Pulse Oximetry Oxygen Delivery Fraction of Inspired Oxygen 12/14/24 01:49 12/14/24 01:49 12/14/24 01:58 Temperature Pulse Rate 99 99 99 Respiratory Rate 20 Blood Pressure 114/53 L 114/53 L 114/53 L Pulse Oximetry 100 Oxygen Delivery Fraction of Inspired Oxygen 12/14/24 04:00 12/14/24 04:00 12/14/24 04:00 Temperature 36.6 C Pulse Rate 80 86 86 Respiratory Rate 16 16 Blood Pressure 118/53 L Pulse Oximetry 99 99 Oxygen Delivery Room Air Fraction of Inspired Oxygen 21 12/14/24 04:00 12/14/24 06:00 12/14/24 06:00 Temperature Pulse Rate 86 85 85 Respiratory Rate 20 Blood Pressure 118/53 L 120/56 L Pulse Oximetry 99 Oxygen Delivery Fraction of Inspired Oxygen 12/14/24 06:00 12/14/24 07:57 12/14/24 09:59 Temperature 36.7 C Pulse Rate 85 92 86 Respiratory Rate 17 Blood Pressure 120/56 L 134/57 L Pulse Oximetry 100 Oxygen Delivery Fraction of Inspired Oxygen 12/14/24 10:00 Temperature 36.7 C Pulse Rate 87 Respiratory Rate 16 Blood Pressure 106/51 L Pulse Oximetry 100 Oxygen Delivery Fraction of Inspired Oxygen Intake/Output Intake/Output: Intake & Output 12/11/24 12/12/24 12/13/24 12/14/24 23:59 23:59 23:59 23:59 Intake Total 2078 716 8373.3 708.9 Output Total 3 1400 Balance 5814 155 7460.3 -691.1 Meds/Results Medications: Active Medications Generic Name Dose Route Start Last Admin Trade Name Freq PRN Reason Stop Dose Admin Acetaminophen 1,000 mg 12/08/24 11:31 12/14/24 10:10 Acetaminophen 500 Mg Tablet PO 1,000 mg Q6H PRN Administration Mild Pain (1-3) or Fever Artificial Tears 1 drop 12/09/24 15:34 Artificial Tears Ophth Soln 15 Ml Bottle EACH EYE QID PRN Dry Eye(s) Benzonatate 100 mg 12/10/24 17:00 12/14/24 09:59 Benzonatate 100 Mg Capsule PO 100 mg TID [facility] Administration Carvedilol 3.125 mg 12/11/24 21:00 12/14/24 09:59 Carvedilol 3.125 Mg Tablet PO 3.125 mg Q12HR LAQUITA Administration Clopidogrel Bisulfate 75 mg 12/11/24 09:00 12/14/24 09:59 Clopidogrel Bisulfate 75 Mg Tablet PO 75 mg DAILY [facility] Administration Cyanocobalamin 1,000 mcg 12/11/24 09:00 12/14/24 10:00 Cyanocobalamin 1,000 Mcg Tablet PO 1,000 mcg QAM [facility] Administration Epoetin Wesley-epbx 10,000 units 12/13/24 09:00 12/13/24 08:49 Epoetin Wesley-Epbx 10,000 Units/Ml Vial SUB-Q 10,000 units TUTHSA@09 [facility] Administration Ferrous Sulfate 325 mg 12/09/24 09:00 12/14/24 09:59 Ferrous Sulfate 325 Mg Tablet PO 325 mg DAILY [facility] Administration Furosemide 40 mg 12/13/24 17:00 12/14/24 09:59 Furosemide Inj 40 Mg/4 Ml Vial IV PUSH 40 mg BID [facility] Administration Guaifenesin/Codeine Phosphate 10 ml 12/08/24 23:57 12/12/24 21:02 Guaifenesin/Codeine (*Crx) 200/20 Mg 10 Ml Syrup PO 10 ml Q6H PRN Administration Cough Milrinone Lactate 20 mg/ 100 mls @ 8.618 mls/hr 12/13/24 13:30 12/14/24 06:00 Dextrose IV CONT 0.38 mcg/kg/min .[id number] LAQUITA 8.62 mls/hr 0.375 MCG/KG/MIN Infusion Insulin Human Regular 1 each 12/09/24 06:00 12/14/24 06:20 Home Medication Insulin XX Not Given DAILY@0600 [facility] Lorazepam 0.5 mg 12/08/24 17:47 Lorazepam (*Crx) 0.5 Mg Tablet PO DAILY PRN Anxiety Radiology Results: ITS Impressions Chest X-Ray 12/08/24 05:55 IMPRESSION: 1. Bibasilar atelectasis and/or airspace disease, with small left pleural effusion. Lexiscan Stress Test 12/12/24 13:37 IMPRESSION: 1. Large distribution of severe infarct involving the apical to mid anterior segments, apical lateral segment, mid anterolateral and mid inferolateral segments, and inferior apical to mid segments of left ventricle 2. Global hypokinesis left ventricular ejection fraction measuring 30%. Labs Labs: Laboratory Results - last 24 hr 12/10/24 12/13/24 12/13/24 20:34 11:19 15:40 WBC RBC Hgb Hct MCV MCH MCHC RDW Plt Count MPV Sodium Potassium Chloride Carbon Dioxide Anion Gap BUN Creatinine Estim Creat Clear Calc Estimated GFR Glucose POC Capillary Glucose 81 121 H Calcium Phosphorus Magnesium Albumin IgG 107 L IgA <5 L IgM <5 L MICHELE Interpretation Comment: 12/13/24 12/14/24 12/14/24 20:12 03:58 07:35 WBC 5.3 RBC 3.17 L Hgb 8.2 L Hct 27.4 L MCV 86.4 MCH 25.9 L MCHC 29.9 L RDW 17.5 H Plt Count 245 MPV 9.5 Sodium 134 L Potassium 4.0 Chloride 102 Carbon Dioxide 24 Anion Gap 8 BUN 62 H Creatinine 3.31 H Estim Creat Clear Calc 17 Estimated GFR 14 L Glucose 107 POC Capillary Glucose 124 H 106 H Calcium 8.4 Phosphorus 4.8 H Magnesium 2.3 Albumin 2.9 L IgG IgA IgM MICHELE Interpretation
[2024-12-14] MEDS: DOCUSATE SODIUM 100 MG CAPSULE PO ×2 (11:54→20:48)
--- NOTE | 2024-12-14 12:27 | PM.PNNEP ---
Progress Note: A&P Assessment and Plan (1) Acute kidney injury: Code(s): N17.9 - Acute kidney failure, unspecified Status: Acute Assessment and Plan: as note by admission creatinine (creatinine 2.63mg/dL) worsening noted by lab trend suspect several issues playing a role: anemia urinary tract infection CHF/decline in EF (element of cardiorenal syndrome) need for IV diuretics possible progression of disease (?) random fluctuations in CKD due to acute illness... other (?) follow trend of repeat labs and UOP (2) Stage 4 chronic kidney disease: Code(s): N18.4 - Chronic kidney disease, stage 4 (severe) Status: Chronic Assessment and Plan: baseline creatinine runs around 2.0 - 2.4mg/dl slow decline over last the 3 years due disease progression along withrecurrent episodes of ANDRES, some of which linked to excess Lasix use, Bactrim use. and other medications (i.e. azathioprine) off SGLT2 inhibtors due to frequent UTIs last outpatinet creatinine 2.20mg/dl in October 2024 due to hypertension and diabetes mellitus well informed of her kidney disease - she is aware of the need for good glycemic and blood pressure control as well as adequate hydration may have to accept a higher creatinine in an effort to achieve/maintain euvolemia follows with Dr. Pepe Nicole at [facility] Nephrology (3) SOB (shortness of breath): Code(s): R06.02 - Shortness of breath Status: Acute Assessment and Plan: seems stable if not better several issues contributing: anemia pleural effusion CHF pneumonia(?) other (?) continue current therapy as outlined (4) CHF (congestive heart failure): Code(s): I50.9 - Heart failure, unspecified Status: Acute Assessment and Plan: no reported history but does have known CKD was on lasix PRN for LE edema last Echo (August 2023) noted: normal global left ventricular systolic function ejection fraction is measured at 66 % impaired diastolic relaxation Grade I no significant valvular dysfunction repeat Echo (12/10/24): eft ventricular systolic function is moderately reduced, estimated at 30 - 35% lleft ventricular diastolic function is grade III diastolic dysfunction trace aortic valve regurgitation mild mitral valve regurgitation trace tricuspid valve regurgitation moderate pulmonary hypertension, estimated pulmonary arterial systolic pressure is 49 mmHg trace pulmonic regurgitation s/p IV bumex + metolazone on 12/12 Cardiology following on milrinone gtt holding diuretics (5) Anemia: Code(s): D64.9 - Anemia, unspecified Status: Acute Assessment and Plan: was scheduled for outpatient PRBC transfusion + IV iron evidence of iron deficiency by October 2024 labs s/p PRBC transfusion (1 unit to date) Hem/Onc recommendations noted Epogen while hospitalized follow trend of H/H (6) UTI (urinary tract infection): Code(s): N39.0 - Urinary tract infection, site not specified Status: Acute Assessment and Plan: admission UA suggestive however, urine culture noted (negative) on antibiotics (7) Essential hypertension: Code(s): I10 - Essential (primary) hypertension Status: Chronic Assessment and Plan: reasonable control losartan on hold (due to #1) follow trend of hemodynamics (8) Type 2 diabetes mellitus with chronic kidney disease: Code(s): E11.22 - Type 2 diabetes mellitus with diabetic chronic kidney disease Status: Chronic Assessment and Plan: follow accu-cheks glycemic control per hospitalist Will continue to follow. Subjective Date/time seen: 12/14/24 12:27 Interval history: Follow-up for acute kidney injury/acute renal failure on chronic kidney disease. Transferred to IMU for milrinone gtt and IV diuretics given her new finding of ischemic cardiomyopathy; renal function/creatinine slightly worse but swelling/edema/breathing appears to be doing better; IV diuretics discontinued by Cardiology today; resting comfortably at the time of my visit. Exam Narrative: General: WD/WN female in NAD Heart: normal S1 and S2; no rub Lungs: decreased at bases Abdomen: soft, nontender, nondistended, positive bowel sounds Extremities: no cyanosis or clubbing; mild edema Skin: no nodules Objective Data Vital Signs Vital Signs: Vital Signs Temp Pulse Resp BP Pulse Ox O2 Del Method FiO2 12/14/24 12:00 86 114/54 L 99 Room Air 12/14/24 11:55 98.7 F 86 14 114/54 L 100 12/14/24 10:00 87 106/51 L 12/14/24 10:00 85 12/14/24 10:00 98.0 F 87 16 106/51 L 100 12/14/24 09:59 86 12/14/24 08:00 92 134/57 L 12/14/24 08:00 96 12/14/24 08:00 99 Room Air 12/14/24 07:57 98.1 F 92 17 134/57 L 100 12/14/24 06:00 85 120/56 L 12/14/24 06:00 85 20 120/56 L 99 12/14/24 06:00 85 12/14/24 04:00 86 118/53 L 12/14/24 04:00 86 12/14/24 04:00 86 16 99 Room Air 21 12/14/24 04:00 97.8 F 80 16 118/53 L 99 12/14/24 01:58 99 20 114/53 L 100 12/14/24 01:49 99 114/53 L 12/14/24 01:49 99 114/53 L 12/14/24 01:32 91 12/14/24 00:00 103 H 124/66 12/14/24 00:00 93 12/14/24 00:00 93 16 100 Room Air 21 12/14/24 00:00 98.2 F 103 H 16 124/66 100 12/13/24 22:00 92 112/55 L 12/13/24 22:00 92 12/13/24 22:00 92 18 112/55 L 98 12/13/24 21:06 98 12/13/24 20:00 98 127/58 L 12/13/24 20:00 90 18 98 Room Air 21 12/13/24 20:00 98 F 114 H 15 127/58 L 98 12/13/24 18:01 96 12/13/24 18:00 100 18 126/86 98 12/13/24 18:00 96 126/86 Intake/Output Intake/Output: Intake & Output 12/11/24 12/12/24 12/13/24 12/14/24 23:59 23:59 23:59 23:59 Intake Total 8545 540 3198.3 792.7 Output Total 3 1700 Balance 2900 726 1452.3 -907.3 Meds/Results Medications: Active Medications Generic Name Dose Route Start Last Admin Trade Name Freq PRN Reason Stop Dose Admin Acetaminophen 1,000 mg 12/08/24 11:31 12/14/24 15:56 Acetaminophen 500 Mg Tablet PO 1,000 mg Q6H PRN Administration Mild Pain (1-3) or Fever Artificial Tears 1 drop 12/09/24 15:34 Artificial Tears Ophth Soln 15 Ml Bottle EACH EYE QID PRN Dry Eye(s) Benzonatate 100 mg 12/10/24 17:00 12/14/24 16:17 Benzonatate 100 Mg Capsule PO Not Given TID [facility] Carvedilol 3.125 mg 12/11/24 21:00 12/14/24 09:59 Carvedilol 3.125 Mg Tablet PO 3.125 mg Q12HR LAQUITA Administration Clopidogrel Bisulfate 75 mg 12/11/24 09:00 12/14/24 09:59 Clopidogrel Bisulfate 75 Mg Tablet PO 75 mg DAILY [facility] Administration Cyanocobalamin 1,000 mcg 12/11/24 09:00 12/14/24 10:00 Cyanocobalamin 1,000 Mcg Tablet PO 1,000 mcg QAM [facility] Administration Docusate Sodium 100 mg 12/14/24 11:30 12/14/24 11:54 Docusate Sodium 100 Mg Capsule PO 100 mg Q12HR [facility] Administration Epoetin Wesley-epbx 10,000 units 12/13/24 09:00 12/13/24 08:49 Epoetin Wesley-Epbx 10,000 Units/Ml Vial SUB-Q 10,000 units TUTHSA@09 [facility] Administration Ferrous Sulfate 325 mg 12/09/24 09:00 12/14/24 09:59 Ferrous Sulfate 325 Mg Tablet PO 325 mg DAILY [facility] Administration Guaifenesin/Codeine Phosphate 10 ml 12/08/24 23:57 12/12/24 21:02 Guaifenesin/Codeine (*Crx) 200/20 Mg 10 Ml Syrup PO 10 ml Q6H PRN Administration Cough Heparin Sodium (Porcine) 5,000 units 12/14/24 22:00 Heparin Sodium 5,000 Units/Ml Vial SUB-Q Q8HR [facility] Milrinone Lactate 20 mg/ 100 mls @ 8.618 mls/hr 12/13/24 13:30 12/14/24 16:00 Dextrose IV CONT 0.38 mcg/kg/min .[id number] [facility] 8.62 mls/hr 0.375 MCG/KG/MIN Infusion Insulin Human Regular 1 each 12/09/24 06:00 12/14/24 06:20 Home Medication Insulin XX Not Given DAILY@0600 [facility] Lorazepam 0.5 mg 12/08/24 17:47 Lorazepam (*Crx) 0.5 Mg Tablet PO DAILY PRN Anxiety Radiology Results: ITS Impressions Chest X-Ray 12/08/24 05:55 IMPRESSION: 1. Bibasilar atelectasis and/or airspace disease, with small left pleural effusion. Lexiscan Stress Test 12/12/24 13:37 IMPRESSION: 1. Large distribution of severe infarct involving the apical to mid anterior segments, apical lateral segment, mid anterolateral and mid inferolateral segments, and inferior apical to mid segments of left ventricle 2. Global hypokinesis left ventricular ejection fraction measuring 30%. Labs Labs: Laboratory Tests 12/14/24 03:58 12/14/24 03:58 Calcium 8.4 Phosphorus 4.8 H Magnesium 2.3 Albumin 2.9 L Microbiology 12/07/24 23:58 Blood Blood Culture - Final
--- NOTE | 2024-12-14 12:27 | P.PNNP_ITS ---
Progress Note: A&P Assessment and Plan (1) Acute kidney injury: Code(s): N17.9 - Acute kidney failure, unspecified Status: Acute Assessment and Plan: * as note by admission creatinine (creatinine 2.63mg/dL) * worsening noted by lab trend * suspect several issues playing a role: * anemia * urinary tract infection * CHF/decline in EF (element of cardiorenal syndrome) * need for IV diuretics * possible progression of disease (?) * random fluctuations in CKD due to acute illness... * other (?) * follow trend of repeat labs and UOP (2) Stage 4 chronic kidney disease: Code(s): N18.4 - Chronic kidney disease, stage 4 (severe) Status: Chronic Assessment and Plan: * baseline creatinine runs around 2.0 - 2.4mg/dl * slow decline over last the 3 years due disease progression along withrecurrent episodes of ANDRES, some of which linked to excess Lasix use, Bactrim use. and other medications (i.e. azathioprine) * off SGLT2 inhibtors due to frequent UTIs * last outpatinet creatinine 2.20mg/dl in October 2024 * due to hypertension and diabetes mellitus * well informed of her kidney disease - she is aware of the need for good glycemic and blood pressure control as well as adequate hydration * may have to accept a higher creatinine in an effort to achieve/maintain euvolemia * follows with Dr. Pepe Nicole at [facility] Nephrology (3) SOB (shortness of breath): Code(s): R06.02 - Shortness of breath Status: Acute Assessment and Plan: * seems stable if not better * several issues contributing: * anemia * pleural effusion * CHF * pneumonia(?) * other (?) * continue current therapy as outlined (4) CHF (congestive heart failure): Code(s): I50.9 - Heart failure, unspecified Status: Acute Assessment and Plan: * no reported history but does have known CKD * was on lasix PRN for LE edema * last Echo (August 2023) noted: * normal global left ventricular systolic function * ejection fraction is measured at 66 % * impaired diastolic relaxation Grade I * no significant valvular dysfunction * repeat Echo (12/10/24): * eft ventricular systolic function is moderately reduced, estimated at 30 - 35% * lleft ventricular diastolic function is grade III diastolic dysfunction * trace aortic valve regurgitation * mild mitral valve regurgitation * trace tricuspid valve regurgitation * moderate pulmonary hypertension, estimated pulmonary arterial systolic pressure is 49 mmHg * trace pulmonic regurgitation * s/p IV bumex + metolazone on 12/12 * Cardiology following * on milrinone gtt * holding diuretics (5) Anemia: Code(s): D64.9 - Anemia, unspecified Status: Acute Assessment and Plan: * was scheduled for outpatient PRBC transfusion + IV iron * evidence of iron deficiency by October 2024 labs * s/p PRBC transfusion (1 unit to date) * Hem/Onc recommendations noted * Epogen while hospitalized * follow trend of H/H (6) UTI (urinary tract infection): Code(s): N39.0 - Urinary tract infection, site not specified Status: Acute Assessment and Plan: * admission UA suggestive * however, urine culture noted (negative) * on antibiotics (7) Essential hypertension: Code(s): I10 - Essential (primary) hypertension Status: Chronic Assessment and Plan: * reasonable control * losartan on hold (due to #1) * follow trend of hemodynamics (8) Type 2 diabetes mellitus with chronic kidney disease: Code(s): E11.22 - Type 2 diabetes mellitus with diabetic chronic kidney disease Status: Chronic Assessment and Plan: * follow accu-cheks * glycemic control per hospitalist Will continue to follow. L Subjective Date/time seen: 12/14/24 12:27 Interval history: Follow-up for acute kidney injury/acute renal failure on chronic kidney disease. Transferred to IMU for milrinone gtt and IV diuretics given her new finding of ischemic cardiomyopathy; renal function/creatinine slightly worse but swelling/edema/breathing appears to be doing better; IV diuretics discontinued by Cardiology today; resting comfortably at the time of my visit. Exam 2 Narrative: General: WD/WN female in NAD Heart: normal S1 and S2; no rub Lungs: decreased at bases Abdomen: soft, nontender, nondistended, positive bowel sounds Extremities: no cyanosis or clubbing; mild edema Skin: no nodules Objective Data Vital Signs Vital Signs: Vital Signs Temp Pulse Resp BP Pulse Ox O2 Del Method FiO2 12/14/24 12:00 86 114/54 L 99 Room Air 12/14/24 11:55 98.7 F 86 14 114/54 L 100 12/14/24 10:00 87 106/51 L 12/14/24 10:00 85 12/14/24 10:00 98.0 F 87 16 106/51 L 100 12/14/24 09:59 86 12/14/24 08:00 92 134/57 L 12/14/24 08:00 96 12/14/24 08:00 99 Room Air 12/14/24 07:57 98.1 F 92 17 134/57 L 100 12/14/24 06:00 85 120/56 L 12/14/24 06:00 85 20 120/56 L 99 12/14/24 06:00 85 12/14/24 04:00 86 118/53 L 12/14/24 04:00 86 12/14/24 04:00 86 16 99 Room Air 21 12/14/24 04:00 97.8 F 80 16 118/53 L 99 12/14/24 01:58 99 20 114/53 L 100 12/14/24 01:49 99 114/53 L 12/14/24 01:49 99 114/53 L 12/14/24 01:32 91 12/14/24 00:00 103 H 124/66 12/14/24 00:00 93 12/14/24 00:00 93 16 100 Room Air 21 12/14/24 00:00 98.2 F 103 H 16 124/66 100 12/13/24 22:00 92 112/55 L 12/13/24 22:00 92 12/13/24 22:00 92 18 112/55 L 98 12/13/24 21:06 98 12/13/24 20:00 98 127/58 L 12/13/24 20:00 90 18 98 Room Air 21 12/13/24 20:00 98 F 114 H 15 127/58 L 98 12/13/24 18:01 96 12/13/24 18:00 100 18 126/86 98 12/13/24 18:00 96 126/86 Intake/Output Intake/Output: Intake & Output 12/11/24 12/12/24 12/13/24 12/14/24 23:59 23:59 23:59 23:59 Intake Total 3188 620 2418.3 792.7 Output Total 3 1700 Balance 4869 192 1976.3 -907.3 Meds/Results Medications: Active Medications Generic Name Dose Route Start Last Admin Trade Name Freq PRN Reason Stop Dose Admin Acetaminophen 1,000 mg 12/08/24 11:31 12/14/24 15:56 Acetaminophen 500 Mg Tablet PO 1,000 mg Q6H PRN Administration Mild Pain (1-3) or Fever Artificial Tears 1 drop 12/09/24 15:34 Artificial Tears Ophth Soln 15 Ml Bottle EACH EYE QID PRN Dry Eye(s) Benzonatate 100 mg 12/10/24 17:00 12/14/24 16:17 Benzonatate 100 Mg Capsule PO Not Given TID [facility] Carvedilol 3.125 mg 12/11/24 21:00 12/14/24 09:59 Carvedilol 3.125 Mg Tablet PO 3.125 mg Q12HR [facility] Administration Clopidogrel Bisulfate 75 mg 12/11/24 09:00 12/14/24 09:59 Clopidogrel Bisulfate 75 Mg Tablet PO 75 mg DAILY [facility] Administration Cyanocobalamin 1,000 mcg 12/11/24 09:00 12/14/24 10:00 Cyanocobalamin 1,000 Mcg Tablet PO 1,000 mcg QAM [facility] Administration Docusate Sodium 100 mg 12/14/24 11:30 12/14/24 11:54 Docusate Sodium 100 Mg Capsule PO 100 mg Q12HR [facility] Administration Epoetin Wesley-epbx 10,000 units 12/13/24 09:00 12/13/24 08:49 Epoetin Wesley-Epbx 10,000 Units/Ml Vial SUB-Q 10,000 units TUTHSA@09 [facility] Administration Ferrous Sulfate 325 mg 12/09/24 09:00 12/14/24 09:59 Ferrous Sulfate 325 Mg Tablet PO 325 mg DAILY [facility] Administration Guaifenesin/Codeine Phosphate 10 ml 12/08/24 23:57 12/12/24 21:02 Guaifenesin/Codeine (*Crx) 200/20 Mg 10 Ml Syrup PO 10 ml Q6H PRN Administration Cough Heparin Sodium (Porcine) 5,000 units 12/14/24 22:00 Heparin Sodium 5,000 Units/Ml Vial SUB-Q Q8HR [facility] Milrinone Lactate 20 mg/ 100 mls @ 8.618 mls/hr 12/13/24 13:30 12/14/24 16:00 Dextrose IV CONT 0.38 mcg/kg/min .[id number] LAQUITA 8.62 mls/hr 0.375 MCG/KG/MIN Infusion Insulin Human Regular 1 each 12/09/24 06:00 12/14/24 06:20 Home Medication Insulin XX Not Given DAILY@0600 LAQUITA Lorazepam 0.5 mg 12/08/24 17:47 Lorazepam (*Crx) 0.5 Mg Tablet PO DAILY PRN Anxiety Radiology Results: ITS Impressions Chest X-Ray 12/08/24 05:55 IMPRESSION: 1. Bibasilar atelectasis and/or airspace disease, with small left pleural effusion. Lexiscan Stress Test 12/12/24 13:37 IMPRESSION: 1. Large distribution of severe infarct involving the apical to mid anterior segments, apical lateral segment, mid anterolateral and mid inferolateral segments, and inferior apical to mid segments of left ventricle 2. Global hypokinesis left ventricular ejection fraction measuring 30%. Labs Labs: Laboratory Tests 12/14/24 03:58 12/14/24 03:58 Calcium 8.4 Phosphorus 4.8 H Magnesium 2.3 Albumin 2.9 L Microbiology 12/07/24 23:58 Blood Blood Culture - Final
--- NOTE | 2024-12-14 14:31 | P.PNIM_ITS ---
Progress Note: A&P Assessment and Plan (1) Type 2 diabetes mellitus with hyperglycemia, with long-term current use of insulin: Code(s): E11.65 - Type 2 diabetes mellitus with hyperglycemia; Z79.4 - terminal system operator (current) use of insulin Status: Acute (2) Chronic kidney disease, stage 3: Code(s): N18.30 - Chronic kidney disease, stage 3 unspecified Status: Acute (3) UTI (urinary tract infection): Code(s): N39.0 - Urinary tract infection, site not specified Status: Acute (4) Anemia: Code(s): D64.9 - Anemia, unspecified Status: Acute (5) SOB (shortness of breath): Code(s): R06.02 - Shortness of breath Status: Acute (6) ANDRES (acute kidney injury): Code(s): N17.9 - Acute kidney failure, unspecified Status: Acute (7) Acute on chronic combined systolic (congestive) and diastolic (congestive) heart failure: Code(s): I50.43 - Acute on chronic combined systolic (congestive) and diastolic (congestive) heart failure Status: Acute Plan 59-year-old female with a history of hypertension, hyperlipidemia, CKD stage 3 (followed by Dr. Nicole at [facility]), insulin-dependent diabetes mellitus, depression and anxiety, CAD, history of ST-elevation NE status post POBA small caliber diagonal branch 05/08/2016, history of splenic infarct, polymyalgia rheumatica, untreated DOUG per the patient's wishes, presents with shortness of b reath which has been steadily worsening over many weeks. She was told by her PCP she has low hemoglobin secondary to iron deficiency. She was scheduled for outpatient blood transfusion and iron infusion which she did not get yet. She also complained of dysuria on presentation and a cough of clear sputum production. Denied any chest pain. Thinks she had heart failure but never diagnosed, she was taken off lasix some time ago and is concerned about worsening leg swelling. She was taken off of b-blockers because they caused dizziness and doesn't want to go back on. In the ER she was given IV iron, she was given Rocephin and azithromycin. She had sinus tachycardia and elevated troponin but no significant ST changes on EKG. ----- Acute on chronic anemia Suspected to be iron deficiency in the outpatient setting. 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 Iron and TIBC low, ferritin high although. Received IV iron on admission. Hemoglobin was 7.6. Hemoglobin dropped to 6.9, status post 1 unit PRBC on 12/09/2028. Has been stable since. Continue daily hemoglobin monitoring. Stool occult still pending. Continue ferrous sulfate at 325 mg p.o. q.day. hematology consult noted. Started on vitamin B12, started on Procrit. Follow-up in Hematology office Shortness of breath: Resolved. Recommend outpatient therapy. Multifactorial etiology including fluid overload, anemia, suspected community-acquired pneumonia. Ceftriaxone switch to Augmentin, continue with azithromycin for total 5 day course Acute on chronic congestive heart failure combined systolic and diastolic EF 30- 35%: BNP 63608 on admission. Complaint of shortness of breath and increased leg swelling. Echocardiogram EF 30-35% Lexiscan no ischemic changes Continue Lasix 40mg IV bid, Coreg BP soft, thus cautious titration of GDMT Cardiology following ANDRES and CKD: Cr baseline 2.0-2.4 Cr 3.31 Nephrology following Diuretics per Nephrology Hyperkalemia: resolved, K 4.0 UTI: Present on admission, complained of dysuria. Urinalysis indicative of infection. Urine culture negative. Ceftriaxone started on 12/08/2024, switch to Augmentin to finish 5 days. Continue azithromycin, started on 12/07/2024. 12/07/2024 blood culture x2, no growth to date. Dysuria resolved. Insulin-dependent diabetes mellitus: Patient wanted to use her glucose monitoring and insulin pump. Risks versus benefits discussed, she signed the agreement. Continue Accu-Cheks a.c. HS otherwise. CAD status post balloon angioplasty, hyperlipidemia: Continue Repatha on discharge. Resume Plavix and monitor anemia. 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 She has stiffness and pain in the morning which improves throughout the day. Continue PT/OT. 12/13/2024: Serum creatinine elevated again. Output not recorded properly. Patient does report she has some urine output. Coordinated her care with Cardiology Nephrology. Patient will be transferred back to IMU for Milrinone GTT. Versus benefits of this discussed. Asked nursing staff to record strict intake/output. Hemoglobin stable. ----- Full code Strict intake/output, daily weights. Heart healthy diabetic diet SCDs. Start heparin GTT 5000 units subcutaneous on 12/13/2024. Pending disposition, cardiology nephrology following. Subjective Date/time seen: 12/14/24 14:31 Interval history: Comfortable at bedside On Milrinone and diuretics per Nephrology Review of Systems Review of Systems: All systems reviewed & are unremarkable except as noted in HPI and below (Subjective) Exam Const: General: comfortable and no acute distress Other: A&O x3 HENMT: Mouth: Yes moist mucous membranes Eyes: Pupils: Equal, round and reactive pupils present Neck: Neck: supple Resp: Effort & Inspection: normal respiratory effort Auscultation: crackles Other: Bibasilar crackles Cardio: Rate: regular rate Rhythm: regular rhythm Heart sounds: no murmurs GI: Inspection: non-distended Neuro: Cranial nerves: Yes Equal, round and reactive pupils present Motor exam (neuro): 5/5 motor strength present throughout Extrem: General: edema Other: Minimal pitting edema bilateral lower extremities Psych: Mental Status: mental status grossly normal Objective Data Vital Signs Vital Signs: Vital Signs - 24 hr 12/13/24 15:10 12/13/24 16:00 12/13/24 16:09 Temperature 98.2 F Pulse Rate 86 85 85 Respiratory Rate 16 Blood Pressure 134/61 134/61 Pulse Oximetry 100 Oxygen Delivery Fraction of Inspired Oxygen 12/13/24 18:00 12/13/24 18:00 12/13/24 18:01 Temperature Pulse Rate 96 100 96 Respiratory Rate 18 Blood Pressure 126/86 126/86 Pulse Oximetry 98 Oxygen Delivery Fraction of Inspired Oxygen 12/13/24 20:00 12/13/24 20:00 12/13/24 20:00 Temperature 98 F Pulse Rate 114 H 90 98 Respiratory Rate 15 18 Blood Pressure 127/58 L 127/58 L Pulse Oximetry 98 98 Oxygen Delivery Room Air Fraction of Inspired Oxygen 21 12/13/24 21:06 12/13/24 22:00 12/13/24 22:00 Temperature Pulse Rate 98 92 92 Respiratory Rate 18 Blood Pressure 112/55 L Pulse Oximetry 98 Oxygen Delivery Fraction of Inspired Oxygen 12/13/24 22:00 12/14/24 00:00 12/14/24 00:00 Temperature 98.2 F Pulse Rate 92 103 H 93 Respiratory Rate 16 16 Blood Pressure 112/55 L 124/66 Pulse Oximetry 100 100 Oxygen Delivery Room Air Fraction of Inspired Oxygen 21 12/14/24 00:00 12/14/24 00:00 12/14/24 01:32 Temperature Pulse Rate 93 103 H 91 Respiratory Rate Blood Pressure 124/66 Pulse Oximetry Oxygen Delivery Fraction of Inspired Oxygen 12/14/24 01:49 12/14/24 01:49 12/14/24 01:58 Temperature Pulse Rate 99 99 99 Respiratory Rate 20 Blood Pressure 114/53 L 114/53 L 114/53 L Pulse Oximetry 100 Oxygen Delivery Fraction of Inspired Oxygen 12/14/24 04:00 12/14/24 04:00 12/14/24 04:00 Temperature 97.8 F Pulse Rate 80 86 86 Respiratory Rate 16 16 Blood Pressure 118/53 L Pulse Oximetry 99 99 Oxygen Delivery Room Air Fraction of Inspired Oxygen 21 12/14/24 04:00 12/14/24 06:00 12/14/24 06:00 Temperature Pulse Rate 86 85 85 Respiratory Rate 20 Blood Pressure 118/53 L 120/56 L Pulse Oximetry 99 Oxygen Delivery Fraction of Inspired Oxygen 12/14/24 06:00 12/14/24 07:57 12/14/24 08:00 Temperature 98.1 F Pulse Rate 85 92 Respiratory Rate 17 Blood Pressure 120/56 L 134/57 L Pulse Oximetry 100 99 Oxygen Delivery Room Air Fraction of Inspired Oxygen 12/14/24 08:00 12/14/24 09:59 12/14/24 10:00 Temperature 98.0 F Pulse Rate 96 86 87 Respiratory Rate 16 Blood Pressure 106/51 L Pulse Oximetry 100 Oxygen Delivery Fraction of Inspired Oxygen 12/14/24 10:00 12/14/24 11:55 12/14/24 12:00 Temperature 98.7 F Pulse Rate 85 86 85 Respiratory Rate 14 Blood Pressure 114/54 L Pulse Oximetry 100 Oxygen Delivery Fraction of Inspired Oxygen 12/14/24 13:26 12/14/24 13:42 12/14/24 14:00 Temperature Pulse Rate 90 90 97 Respiratory Rate 16 Blood Pressure 114/54 L 114/54 L 101/40 L Pulse Oximetry 99 Oxygen Delivery Fraction of Inspired Oxygen Intake/Output Intake/Output: Intake & Output 12/11/24 12/12/24 12/13/24 12/14/24 23:59 23:59 23:59 23:59 Intake Total 0209 712 4992.3 772.9 Output Total 3 1700 Balance 1269 475 6920.3 -927.1 Meds/Results Medications: Active Medications Generic Name Dose Route Start Last Admin Trade Name Freq PRN Reason Stop Dose Admin Acetaminophen 1,000 mg 12/08/24 11:31 12/14/24 10:10 Acetaminophen 500 Mg Tablet PO 1,000 mg Q6H PRN Administration Mild Pain (1-3) or Fever Artificial Tears 1 drop 12/09/24 15:34 Artificial Tears Ophth Soln 15 Ml Bottle EACH EYE QID PRN Dry Eye(s) Benzonatate 100 mg 12/10/24 17:00 12/14/24 13:43 Benzonatate 100 Mg Capsule PO Not Given TID [facility] Carvedilol 3.125 mg 12/11/24 21:00 12/14/24 09:59 Carvedilol 3.125 Mg Tablet PO 3.125 mg Q12HR LAQUITA Administration Clopidogrel Bisulfate 75 mg 12/11/24 09:00 12/14/24 09:59 Clopidogrel Bisulfate 75 Mg Tablet PO 75 mg DAILY LAQUITA Administration Cyanocobalamin 1,000 mcg 12/11/24 09:00 12/14/24 10:00 Cyanocobalamin 1,000 Mcg Tablet PO 1,000 mcg QAM [facility] Administration Docusate Sodium 100 mg 12/14/24 11:30 12/14/24 11:54 Docusate Sodium 100 Mg Capsule PO 100 mg Q12HR LAQUITA Administration Epoetin Wesley-epbx 10,000 units 12/13/24 09:00 12/13/24 08:49 Epoetin Wesley-Epbx 10,000 Units/Ml Vial SUB-Q 10,000 units TUTHSA@09 [facility] Administration Ferrous Sulfate 325 mg 12/09/24 09:00 12/14/24 09:59 Ferrous Sulfate 325 Mg Tablet PO 325 mg DAILY [facility]QUITA Administration Guaifenesin/Codeine Phosphate 10 ml 12/08/24 23:57 12/12/24 21:02 Guaifenesin/Codeine (*Crx) 200/20 Mg 10 Ml Syrup PO 10 ml Q6H PRN Administration Cough Milrinone Lactate 20 mg/ 100 mls @ 8.618 mls/hr 12/13/24 13:30 12/14/24 13:42 Dextrose IV CONT 0.38 mcg/kg/min .[id number] LAQUITA 8.62 mls/hr 0.375 MCG/KG/MIN Administration Insulin Human Regular 1 each 12/09/24 06:00 12/14/24 06:20 Home Medication Insulin XX Not Given DAILY@0600 LAQUITA Lorazepam 0.5 mg 12/08/24 17:47 Lorazepam (*Crx) 0.5 Mg Tablet PO DAILY PRN Anxiety Radiology Results: ITS Impressions Chest X-Ray 12/08/24 05:55 IMPRESSION: 1. Bibasilar atelectasis and/or airspace disease, with small left pleural effusion. Lexiscan Stress Test 12/12/24 13:37 IMPRESSION: 1. Large distribution of severe infarct involving the apical to mid anterior segments, apical lateral segment, mid anterolateral and mid inferolateral segments, and inferior apical to mid segments of left ventricle 2. Global hypokinesis left ventricular ejection fraction measuring 30%. Labs Labs: Laboratory Results - last 24 hr 12/10/24 12/13/24 12/13/24 20:34 15:40 20:12 WBC RBC Hgb Hct MCV MCH MCHC RDW Plt Count MPV Sodium Potassium Chloride Carbon Dioxide Anion Gap BUN Creatinine Estim Creat Clear Calc Estimated GFR Glucose POC Capillary Glucose 121 H 124 H Calcium Phosphorus Magnesium Albumin IgG 107 L IgA <5 L IgM <5 L MICHELE Interpretation Comment: 12/14/24 12/14/24 12/14/24 03:58 07:35 11:34 WBC 5.3 RBC 3.17 L Hgb 8.2 L Hct 27.4 L MCV 86.4 MCH 25.9 L MCHC 29.9 L RDW 17.5 H Plt Count 245 MPV 9.5 Sodium 134 L Potassium 4.0 Chloride 102 Carbon Dioxide 24 Anion Gap 8 BUN 62 H Creatinine 3.31 H Estim Creat Clear Calc 17 Estimated GFR 14 L Glucose 107 POC Capillary Glucose 106 H 130 H Calcium 8.4 Phosphorus 4.8 H Magnesium 2.3 Albumin 2.9 L IgG IgA IgM MICHELE Interpretation
[2024-12-15] VITALS (24 sets, daily range): BP systolic 106–144; BP diastolic 48–64; PULSE 79–102; RESP 15–18; TEMP 36.4–37.2; O2SAT 97–100
[2024-12-15] MEDS: MILRINONE LACTATE 20 MG in DEXTROSE 5% 80 ML 8.6 MG IV CONT ×2 (00:42→11:45)
[2024-12-15] MEDS: ACETAMINOPHEN 500 MG TABLET 1000 MG PO ×2 (04:11→21:29)
[2024-12-15 05:17] LABS: Alanine Aminotransferase 6 U/L (6-35); Albumin Level 2.9 g/dL (3.5-5.1); Alkaline Phosphatase 67 U/L (38-126); Anion Gap 13 mmol/L (4-12); Aspartate Amino Transferase 12 U/L (14-36); Bilirubin,Total 0.5 mg/dL (0.2-1.3); Blood Urea Nitrogen 66 mg/dL (7-17); Calcium 8.6 mg/dL (8.4-10.2); Carbon Dioxide 20 mmol/L (22-30); Chloride 103 mmol/L (98-107); Estimated CRCL calculation 18 ml/min; Estimated Glomerular Filt Rate 15; Glucose 99 mg/dL (65-110); Magnesium 2.5 mg/dL (1.6-2.3); Potassium 4.3 mmol/L (3.4-5.0); Sodium 136 mmol/L (137-145); Total Protein 4.8 g/dL (6.3-8.2)
[2024-12-15 06:36] LABS: Hematocrit 27.6 % (37.0-47.0); Hemoglobin 8.2 g/dL (12.0-15.0); Immature Granulocyte Percent A 0.6 % (0-0.5); Lymphocytes Absolute Auto 0.90 K/mm3 (0.9-3.2); Mean Corpuscular HGB Conc 29.7 g/dl (32-36); Mean Corpuscular Hemoglobin 25.7 pg (26-34); Mean Corpuscular Volume 86.5 fl (80-100); Nucleated Red Blood Cells Absolute Auto 0.000 K/mm3 (0.0-0.012); Nucleated Red Blood Cells Perc 0.0 % (0.0-0.2); Platelet Count Result 248 k/mm3 (150-375); Red Blood Count 3.19 M/mm3 (4.2-5.4); White Blood Count 5.3 K/mm3 (4.5-10.0)
[2024-12-15 06:58] LABS: Iron 28 ug/dL (37-170)
[2024-12-15 07:09] LABS: Hypochromasia 2+; Ovalocytes Occasional; Percent Iron Saturation 16 % (20-50); Schistocytes None Seen
[2024-12-15 07:40] LABS: Ferritin 558.00 ng/mL (11.1-264)
[2024-12-15] MEDS: DOCUSATE SODIUM 100 MG CAPSULE PO ×2 (08:44→21:29)
[2024-12-15] MEDS: FERROUS SULFATE 325 MG TABLET PO (08:44)
[2024-12-15] MEDS: CYANOCOBALAMIN 1,000 MCG TABLET 1000 MCG PO (08:44)
[2024-12-15] MEDS: CLOPIDOGREL BISULFATE 75 MG TABLET PO (08:44)
[2024-12-15 08:54] LABS: IFOB Positive Control Positive; Immunochemical Fecal Occult Bl Positive (N)
[2024-12-15] MEDS: IRON SUCROSE COMPLEX 200 MG in SODIUM CHLORIDE 0.9% IV 100 ML 220 MG IVPB (09:38)
[2024-12-15] MEDS: SODIUM BICARBONATE TAB 650 MG TABLET PO ×2 (09:44→17:48)
[2024-12-15] MEDS: EPOETIN ALFA-EPBX 10,000 UNITS/ML VIAL 10000 UNITS SUB-Q (09:44)
--- NOTE | 2024-12-15 10:05 | PM.PNCARD ---
Progress Note: A&P Assessment and Plan (1) Ischemic cardiomyopathy: Code(s): I25.5 - Ischemic cardiomyopathy Status: Acute (2) Acute on chronic combined systolic (congestive) and diastolic (congestive) heart failure: Code(s): I50.43 - Acute on chronic combined systolic (congestive) and diastolic (congestive) heart failure Status: Acute (3) Stage 4 chronic kidney disease: Code(s): N18.4 - Chronic kidney disease, stage 4 (severe) Status: Chronic (4) Iron deficiency anemia: Code(s): D50.9 - Iron deficiency anemia, unspecified Status: Acute Plan Assessment; 1. Patient with known history of previous myocardial infarction presents with symptoms of congestive heart failure. Echocardiogram reveals systolic function reduced 30-35%. Findings are most consistent with ischemic cardiomyopathy with previous anteroseptal myocardial infarction based on EKG. 2. Increasing shortness of breath and leg edema. BNP is markedly elevated. Echocardiogram shows reduced systolic function in the range of 30-35%. Findings are suggestive of acute on chronic systolic and diastolic heart failure. Echocardiogram also suggests grade 3 diastolic dysfunction. 3. Known history of previous myocardial infarction in the past. EKG suggests old anteroseptal myocardial infarction. Rule out progression of coronary artery disease. 4. Marked anemia with hemoglobin at 7.7. MCV is normal. WBC count is normal. This could be secondary to chronic kidney failure related anemia carotid. However underlying iron deficiency anemia and other disease cannot be ruled out. 5. History of chronic stage IIIB kidney disease. BUN was 15 creatinine was 3.07 on admission with GFR at 15 suggesting stage 4 chronic kidney disease. 6. Urinary symptoms on admission. Rule out urinary tract infection Recommendations: 1. Echocardiogram was reviewed. Severely reduced ejection fraction range of 30-35%. EKG shows old anteroseptal myocardial infarction. Patient needs a pharmacological nuclear stress test to evaluate for underlying ischemic heart disease and assess for severe LV systolic dysfunction. -Nuclear stress test completed today. Baseline EKG does show deep T-wave inversion inferolaterally spread. Patient had no chest pain but had emesis during the Lexiscan stress test. 2. Patient currently on IV inotrope with Milrinone at 0.375 microgram/kg per minute and tolerating. Patient is also on Lasix 40 mg b.i.d. and tolerating. BUN is 16 creatinine increased to 3.31. Clinically patient has no leg edema and appears euvolemic. Will discontinue IV Lasix at this point and only continue Milrinone. Blood pressure is 106/51 heart rate is 87 per minute 3. Patient needs renal consultation for evaluation of advanced kidney failure stage IV. Patient evaluated by Nephrology Service and IV diuretics were adjusted. 4. Laboratory data reviewed from today. Sodium 134, potassium 4.0, BUN 62 and creatinine 3.3. GFR is 14. 5. Nuclear stress test performed on 12/12/2024 reveals extensive anterior wall myocardial infarction without reversible defect an ejection fraction of 30%. Multiple weeks perfusion defects noted involving mid and the, apical lateral, mid anterolateral, mid inferolateral, inferior apical and mid segments of left ventricle. This is consistent with ischemic cardiomyopathy. 6. Continue with guideline directed medical therapy. Patient is currently on carvedilol 3.125 mg p.o. b.i.d., Plavix 75 mg daily, IV Milrinone and Lasix. -will increase IV Milrinone 0.5 microgram/kg per minute. -BUN and creatinine are stable. BUN is mildly elevated -patient is currently off the Lasix. -we will do gentle hydration at 40 cc/hour for 12 hours. Subjective Date/time seen: 12/15/24 10:05 Interval history: Patient is examined at the bedside. Patient is awake alert appears comfortable without shortness of breath, chest pain, orthopnea or leg edema. Patient remains on IV Milrinone drip and tolerating and 0.375 micrograms/kg per minute. Lasix was not discontinued yesterday and patient is on fluid intake. Review of Systems Review of Systems: Twelve point review of system was completed. Pertinent positive and negative findings per HPI. Cardiovascular negative for shortness of breath, chest pain orthopnea. No leg edema. Monitor shows normal sinus rhythm. Exam Narrative: Patient is examined at the bedside. Patient is awake alert and appears to be comfortable without shortness of breath, chest pain or orthopnea. Head and neck examination is unremarkable. Lungs are clear to auscultation percussion. Heart sounds reveal normal S1-S2 there is no significant murmurs S3-S4 Abdomen is soft and nontender. There is no hepatosplenomegaly. Bowel sounds are present. Extremities revealed no pedal edema. Neurological examination is intact. Objective Data Vital Signs Vital Signs: Vital Signs - 24 hr 12/14/24 11:55 12/14/24 12:00 12/14/24 12:00 Temperature 37.1 C Pulse Rate 86 85 86 Respiratory Rate 14 Blood Pressure 114/54 L 114/54 L Pulse Oximetry 100 Oxygen Delivery 12/14/24 12:00 12/14/24 13:26 12/14/24 13:42 Temperature Pulse Rate 90 90 Respiratory Rate Blood Pressure 114/54 L 114/54 L Pulse Oximetry 99 Oxygen Delivery Room Air 12/14/24 14:00 12/14/24 14:00 12/14/24 14:00 Temperature Pulse Rate 97 97 90 Respiratory Rate 16 Blood Pressure 101/40 L 101/40 L Pulse Oximetry 99 Oxygen Delivery 12/14/24 16:00 12/14/24 16:00 12/14/24 16:00 Temperature 37.0 C Pulse Rate 88 83 Respiratory Rate 18 Blood Pressure 115/53 L 115/53 L Pulse Oximetry 97 99 Oxygen Delivery Room Air 12/14/24 16:00 12/14/24 18:00 12/14/24 18:00 Temperature Pulse Rate 86 90 90 Respiratory Rate Blood Pressure 113/45 L Pulse Oximetry Oxygen Delivery 12/14/24 18:00 12/14/24 19:48 12/14/24 20:00 Temperature 36.9 C Pulse Rate 90 86 Respiratory Rate 14 Blood Pressure 113/45 L 116/48 L Pulse Oximetry 97 Oxygen Delivery Room Air 12/14/24 20:00 12/14/24 20:30 12/14/24 20:47 Temperature Pulse Rate 88 86 91 Respiratory Rate Blood Pressure 116/48 L Pulse Oximetry Oxygen Delivery 12/14/24 22:00 12/14/24 22:00 12/14/24 22:00 Temperature Pulse Rate 88 88 89 Respiratory Rate Blood Pressure 124/57 L 124/57 L Pulse Oximetry Oxygen Delivery 12/14/24 23:48 12/15/24 00:00 12/15/24 00:00 Temperature 36.8 C Pulse Rate 86 90 Respiratory Rate 16 Blood Pressure 113/55 L Pulse Oximetry 97 Oxygen Delivery Room Air 12/15/24 00:00 12/15/24 00:42 12/15/24 00:42 Temperature Pulse Rate 86 84 84 Respiratory Rate Blood Pressure 113/55 L Pulse Oximetry Oxygen Delivery 12/15/24 01:56 12/15/24 02:07 12/15/24 04:00 Temperature 36.8 C Pulse Rate 81 83 84 Respiratory Rate 15 Blood Pressure 119/51 L 135/55 L Pulse Oximetry 100 Oxygen Delivery 12/15/24 04:00 12/15/24 04:00 12/15/24 04:00 Temperature Pulse Rate 84 79 Respiratory Rate Blood Pressure 135/55 L Pulse Oximetry Oxygen Delivery Room Air 12/15/24 06:00 12/15/24 06:04 12/15/24 08:00 Temperature 36.4 C L Pulse Rate 86 80 98 Respiratory Rate 18 Blood Pressure 124/55 L 106/51 L Pulse Oximetry 100 Oxygen Delivery 12/15/24 08:44 Temperature Pulse Rate 97 Respiratory Rate Blood Pressure Pulse Oximetry Oxygen Delivery Intake/Output Intake/Output: Intake & Output 12/12/24 12/13/24 12/14/24 12/15/24 23:59 23:59 23:59 23:59 Intake Total 720 1220.3 1324.4 369.4 Output Total 3 2850 Balance 720 1217.3 -1525.6 369.4 Meds/Results Medications: Active Medications Generic Name Dose Route Start Last Admin Trade Name Freq PRN Reason Stop Dose Admin Acetaminophen 1,000 mg 12/08/24 11:31 12/15/24 04:11 Acetaminophen 500 Mg Tablet PO 1,000 mg Q6H PRN Administration Mild Pain (1-3) or Fever Artificial Tears 1 drop 12/09/24 15:34 Artificial Tears Ophth Soln 15 Ml Bottle EACH EYE QID PRN Dry Eye(s) Benzonatate 100 mg 12/10/24 17:00 12/14/24 22:01 Benzonatate 100 Mg Capsule PO 100 mg TID LAQUITA Administration Carvedilol 3.125 mg 12/11/24 21:00 12/15/24 08:44 Carvedilol 3.125 Mg Tablet PO 3.125 mg Q12HR LAQUITA Administration Clopidogrel Bisulfate 75 mg 12/11/24 09:00 12/15/24 08:44 Clopidogrel Bisulfate 75 Mg Tablet PO 75 mg DAILY LAQUITA Administration Cyanocobalamin 1,000 mcg 12/11/24 09:00 12/15/24 08:44 Cyanocobalamin 1,000 Mcg Tablet PO 1,000 mcg QAM LAQUITA Administration Docusate Sodium 100 mg 12/14/24 11:30 12/15/24 08:44 Docusate Sodium 100 Mg Capsule PO 100 mg Q12HR LAQUITA Administration Epoetin Weslye-epbx 10,000 units 12/13/24 09:00 12/15/24 09:44 Epoetin Wesley-Epbx 10,000 Units/Ml Vial SUB-Q 10,000 units TUTHSA@09 LAQUITA Administration Ferrous Sulfate 325 mg 12/09/24 09:00 12/15/24 08:44 Ferrous Sulfate 325 Mg Tablet PO 325 mg DAILY LAQUITA Administration Guaifenesin/Codeine Phosphate 10 ml 12/08/24 23:57 12/12/24 21:02 Guaifenesin/Codeine (*Crx) 200/20 Mg 10 Ml Syrup PO 10 ml Q6H PRN Administration Cough Heparin Sodium (Porcine) 5,000 units 12/14/24 22:00 12/15/24 05:50 Heparin Sodium 5,000 Units/Ml Vial SUB-Q 5,000 units Q8HR LAQUITA Administration Milrinone Lactate 20 mg/ 100 mls @ 8.618 mls/hr 12/13/24 13:30 12/15/24 06:04 Dextrose IV CONT 0.37 mcg/kg/min .[id number] LAQUITA 8.6 mls/hr 0.375 MCG/KG/MIN Infusion Insulin Human Regular 1 each 12/09/24 06:00 12/14/24 06:20 Home Medication Insulin XX Not Given DAILY@0600 [facility] Lorazepam 0.5 mg 12/08/24 17:47 Lorazepam (*Crx) 0.5 Mg Tablet PO DAILY PRN Anxiety Sevelamer Carbonate 0.8 gm 12/15/24 12:00 Sevelamer Carbonate 0.8 Gm Oral Powder Packet PO TIDWM [facility] Sodium Bicarbonate 650 mg 12/15/24 09:00 12/15/24 09:44 Sodium Bicarbonate Tab 650 Mg Tablet PO 650 mg BID [facility] Administration Radiology Results: ITS Impressions Chest X-Ray 12/08/24 05:55 IMPRESSION: 1. Bibasilar atelectasis and/or airspace disease, with small left pleural effusion. Lexiscan Stress Test 12/12/24 13:37 IMPRESSION: 1. Large distribution of severe infarct involving the apical to mid anterior segments, apical lateral segment, mid anterolateral and mid inferolateral segments, and inferior apical to mid segments of left ventricle 2. Global hypokinesis left ventricular ejection fraction measuring 30%. Labs Labs: Laboratory Results - last 24 hr 12/10/24 12/14/24 12/14/24 20:34 11:34 16:35 WBC RBC Hgb Hct MCV MCH MCHC RDW Plt Count MPV Immature Gran % (Auto) Neut % (Auto) Lymph % (Auto) [place] % (Auto) Eos % (Auto) Baso % (Auto) Lymph # (Auto) [place] # (Auto) Eos # (Auto) Baso # (Auto) Abs Immat Gran (auto) Absolute Neuts (auto) Absolute Nucleated RBC Band Neutrophils % Nucleated RBC % Platelet Estimate Hypochromasia Ovalocytes Schistocytes Sodium Potassium Chloride Carbon Dioxide Anion Gap BUN Creatinine Estim Creat Clear Calc Estimated GFR Glucose POC Capillary Glucose 130 H 114 H Calcium Phosphorus Magnesium Iron TIBC % Saturation Nadia Transferrin Receptr 25.4 Ferritin Total Bilirubin AST ALT Alkaline Phosphatase Total Protein Albumin Stl Occult Blood (IFOB) IgG 107 L IgA <5 L IgM <5 L MICHELE Interpretation Comment: 12/14/24 12/15/24 12/15/24 19:33 04:46 06:27 WBC 5.3 RBC 3.19 L Hgb 8.2 L Hct 27.6 L MCV 86.5 MCH 25.7 L MCHC 29.7 L RDW 17.5 H Plt Count 248 MPV 9.7 Immature Gran % (Auto) 0.6 H Neut % (Auto) 72.6 Lymph % (Auto) 17.1 L [place] % (Auto) 9.3 H Eos % (Auto) 0.0 Baso % (Auto) 0.4 Lymph # (Auto) 0.90 [place] # (Auto) 0.5 Eos # (Auto) 0.0 Baso # (Auto) 0.0 Abs Immat Gran (auto) 0.03 Absolute Neuts (auto) 3.8 Absolute Nucleated RBC 0.000 Band Neutrophils % Not Reportable Nucleated RBC % 0.0 Platelet Estimate Adequate Hypochromasia 2+ Ovalocytes Occasional Schistocytes None seen Sodium 136 L Potassium 4.3 Chloride 103 Carbon Dioxide 20 L Anion Gap 13 H BUN 66 H Creatinine 3.17 H Estim Creat Clear Calc 18 Estimated GFR 15 L Glucose 99 POC Capillary Glucose 109 H Calcium 8.6 Phosphorus 5.1 H Magnesium 2.5 H Iron 28 L TIBC 177 L % Saturation 16 L Nadia Transferrin Receptr Ferritin 558.00 H Total Bilirubin 0.5 AST 12 L ALT 6 Alkaline Phosphatase 67 Total Protein 4.8 L Albumin 2.9 L Stl Occult Blood (IFOB) IgG IgA IgM MICHELE Interpretation 12/15/24 12/15/24 07:33 08:21 WBC RBC Hgb Hct MCV MCH MCHC RDW Plt Count MPV Immature Gran % (Auto) Neut % (Auto) Lymph % (Auto) [place] % (Auto) Eos % (Auto) Baso % (Auto) Lymph # (Auto) [place] # (Auto) Eos # (Auto) Baso # (Auto) Abs Immat Gran (auto) Absolute Neuts (auto) Absolute Nucleated RBC Band Neutrophils % Nucleated RBC % Platelet Estimate Hypochromasia Ovalocytes Schistocytes Sodium Potassium Chloride Carbon Dioxide Anion Gap BUN Creatinine Estim Creat Clear Calc Estimated GFR Glucose POC Capillary Glucose 115 H Calcium Phosphorus Magnesium Iron TIBC % Saturation Nadia Transferrin Receptr Ferritin Total Bilirubin AST ALT Alkaline Phosphatase Total Protein Albumin Stl Occult Blood (IFOB) Positive H IgG IgA IgM MICHELE Interpretation
--- NOTE | 2024-12-15 10:50 | P.PNNP_ITS ---
Progress Note: A&P Assessment and Plan (1) Acute kidney injury: Code(s): N17.9 - Acute kidney failure, unspecified Status: Acute Assessment and Plan: * as note by admission creatinine (creatinine 2.63mg/dL) * worsening noted by lab trend * suspect several issues playing a role: * anemia * urinary tract infection * CHF/ischemic cardiomyopathy(element of cardiorenal syndrome) * need for IV diuretics * possible progression of disease (?) * random fluctuations in CKD due to acute illness... * other (?) * follow trend of repeat labs and UOP (2) Stage 4 chronic kidney disease: Code(s): N18.4 - Chronic kidney disease, stage 4 (severe) Status: Chronic Assessment and Plan: * baseline creatinine usually runs around 2.0 - 2.4mg/dl * slow decline over last the 3 years due disease progression along withrecurrent episodes of ANDRES, some of which linked to excess Lasix use, Bactrim use. and other medications (i.e. azathioprine) * off SGLT2 inhibtor (Jardiance) due to frequent UTIs/yeast infections * last outpatient creatinine 2.20mg/dl in October 2024 * due to hypertension and diabetes mellitus * well informed of her kidney disease - she is aware of the need for good glycemic and blood pressure control as well as adequate hydration * may have to accept a higher creatinine in an effort to achieve/maintain euvolemia in the context of her new ischemic cardiomyopathy * follows with Dr. Pepe Nicole at [facility] Nephrology (3) Ischemic cardiomyopathy: Code(s): I25.5 - Ischemic cardiomyopathy Status: Acute Assessment and Plan: * no reported history of CHF but does have known CAD * was on lasix PRN for LE edema * last Echo (August 2023) noted: * normal global left ventricular systolic function * ejection fraction is measured at 66% * impaired diastolic relaxation Grade I * no significant valvular dysfunction * repeat Echo (12/10/24): * left ventricular systolic function is moderately reduced, estimated at 30 - 35% * left ventricular diastolic function is grade III diastolic dysfunction * trace aortic valve regurgitation * mild mitral valve regurgitation * trace tricuspid valve regurgitation * moderate pulmonary hypertension, estimated pulmonary arterial systolic pressure is 49 mmHg * trace pulmonic regurgitation * stress test noted * Cardiology following given new ischemic cardiomyopathy * on milrinone gtt * holding diuretics given stable volume status (4) SOB (shortness of breath): Code(s): R06.02 - Shortness of breath Status: Acute Assessment and Plan: * seems stable if not better * several issues contributing: * anemia * pleural effusion * CHF/ischemic cardiomyopathy * pneumonia(?) * other (?) * continue current therapy as outlined (5) Anemia: Code(s): D64.9 - Anemia, unspecified Status: Acute Assessment and Plan: * was scheduled for outpatient PRBC transfusion + IV iron * evidence of iron deficiency by recent and October 2024 labs * s/p PRBC transfusion (1 unit to date) * Epogen while hospitalized * IV venofer infusions while hospitalized * follow trend of H/H (6) UTI (urinary tract infection): Code(s): N39.0 - Urinary tract infection, site not specified Status: Acute Assessment and Plan: * admission UA suggestive * however, urine culture noted (negative) * completed antibiotics (7) Essential hypertension: Code(s): I10 - Essential (primary) hypertension Status: Chronic Assessment and Plan: * reasonable control (running on the lower side - presumably due to cardiomyopathy) * losartan on hold (due to #1) * follow trend of hemodynamics (8) Type 2 diabetes mellitus with chronic kidney disease: Code(s): E11.22 - Type 2 diabetes mellitus with diabetic chronic kidney disease Status: Chronic Assessment and Plan: * follow accu-cheks * glycemic control per hospitalist Will continue to follow. L Subjective Date/time seen: 12/15/24 10:50 Interval history: Follow-up for acute kidney injury/acute renal failure on chronic kidney disease. No apparent distress voiced at the time of my visit; renal function/creatinine slightly better; remains on milrinone gtt but off diuretics with stability in volume status -- trial of gentle hydration with IVFs today and increased in milrionone gtt per Cardiology; otherwise, no other acute issues/events noted overnight or earlier this morning. Exam 2 Narrative: General: WD/WN female in NAD Heart: normal S1 and S2; no rub Lungs: clear anteriorly Abdomen: soft, nontender, nondistended, positive bowel sounds Extremities: no cyanosis or clubbing; no edema Skin: warm and dry Objective Data Vital Signs Vital Signs: Vital Signs Temp Pulse Resp BP Pulse Ox O2 Del Method 12/15/24 10:00 97.7 F 84 16 119/51 L 100 12/15/24 10:00 84 119/51 L 12/15/24 08:44 97 12/15/24 08:00 102 H 12/15/24 08:00 98 106/51 L 12/15/24 08:00 Room Air 12/15/24 08:00 97.5 F L 98 18 106/51 L 100 12/15/24 06:04 80 124/55 L 12/15/24 06:00 86 12/15/24 04:00 79 12/15/24 04:00 84 135/55 L 12/15/24 04:00 Room Air 12/15/24 04:00 98.2 F 84 15 135/55 L 100 12/15/24 02:07 83 119/51 L 12/15/24 01:56 81 12/15/24 00:42 84 12/15/24 00:42 84 12/15/24 00:00 86 113/55 L 12/15/24 00:00 90 12/15/24 00:00 98.3 F 86 16 113/55 L 97 12/14/24 23:48 Room Air 12/14/24 22:00 89 12/14/24 22:00 88 124/57 L 12/14/24 22:00 88 124/57 L 12/14/24 20:47 91 12/14/24 20:30 86 116/48 L 12/14/24 20:00 88 12/14/24 20:00 Room Air 12/14/24 19:48 98.4 F 86 14 116/48 L 97 12/14/24 18:00 90 113/45 L 12/14/24 18:00 90 12/14/24 18:00 90 113/45 L 12/14/24 16:00 86 12/14/24 16:00 99 Room Air 12/14/24 16:00 98.6 F 83 18 115/53 L 97 12/14/24 16:00 88 115/53 L 12/14/24 14:00 90 12/14/24 14:00 97 101/40 L 12/14/24 14:00 97 16 101/40 L 99 12/14/24 13:42 90 114/54 L Intake/Output Intake/Output: Intake & Output 12/12/24 12/13/24 12/14/24/04/25 23:59 23:59 23:59 23:59 Intake Total 720 1220.3 1324.4 903.2 Output Total 3 2850 Balance 720 1217.3 -1525.6 903.2 Meds/Results Medications: Active Medications Generic Name Dose Route Start Last Admin Trade Name Freq PRN Reason Stop Dose Admin Acetaminophen 1,000 mg 12/08/24 11:31 12/15/24 04:11 Acetaminophen 500 Mg Tablet PO 1,000 mg Q6H PRN Administration Mild Pain (1-3) or Fever Artificial Tears 1 drop 12/09/24 15:34 Artificial Tears Ophth Soln 15 Ml Bottle EACH EYE QID PRN Dry Eye(s) Benzonatate 100 mg 12/15/24 14:00 Benzonatate 100 Mg Capsule PO Q8HR [facility] Carvedilol 3.125 mg 12/11/24 21:00 12/15/24 08:44 Carvedilol 3.125 Mg Tablet PO 3.125 mg Q12HR [facility] Administration Clopidogrel Bisulfate 75 mg 12/11/24 09:00 12/15/24 08:44 Clopidogrel Bisulfate 75 Mg Tablet PO 75 mg DAILY [facility] Administration Cyanocobalamin 1,000 mcg 12/11/24 09:00 12/15/24 08:44 Cyanocobalamin 1,000 Mcg Tablet PO 1,000 mcg QAM [facility] Administration Docusate Sodium 100 mg 12/14/24 11:30 12/15/24 08:44 Docusate Sodium 100 Mg Capsule PO 100 mg Q12HR LAQUITA Administration Epoetin Wesley-epbx 10,000 units 12/13/24 09:00 12/15/24 09:44 Epoetin Wesley-Epbx 10,000 Units/Ml Vial SUB-Q 10,000 units TUTHSA@09 [facility] Administration Ferrous Sulfate 325 mg 12/09/24 09:00 12/15/24 08:44 Ferrous Sulfate 325 Mg Tablet PO 325 mg DAILY LAQUITA Administration Guaifenesin/Codeine Phosphate 10 ml 12/08/24 23:57 12/12/24 21:02 Guaifenesin/Codeine (*Crx) 200/20 Mg 10 Ml Syrup PO 10 ml Q6H PRN Administration Cough Heparin Sodium (Porcine) 5,000 units 12/14/24 22:00 12/15/24 05:50 Heparin Sodium 5,000 Units/Ml Vial SUB-Q 5,000 units Q8HR LAQUITA Administration Milrinone Lactate 20 mg/ 100 mls @ 11.49 mls/hr 12/13/24 13:30 12/15/24 12:19 Dextrose IV CONT 0.37 mcg/kg/min .Q8H43M LAQUITA 8.6 mls/hr 0.5 MCG/KG/MIN Infusion Sodium Chloride 500 mls @ 41.667 mls/hr 12/15/24 10:30 12/15/24 11:13 Sodium Chloride 0.45% IV CONT 12/15/24 22:29 41.67 mls/hr .Q12H ONE Administration Insulin Human Regular 1 each 12/09/24 06:00 12/14/24 06:20 Home Medication Insulin XX Not Given DAILY@0600 [facility] Lorazepam 0.5 mg 12/08/24 17:47 Lorazepam (*Crx) 0.5 Mg Tablet PO DAILY PRN Anxiety Sevelamer Carbonate 0.8 gm 12/15/24 12:00 12/15/24 11:50 Sevelamer Carbonate 0.8 Gm Oral Powder Packet PO 0.8 gm TIDWM LAQUITA Administration Sodium Bicarbonate 650 mg 12/15/24 09:00 12/15/24 09:44 Sodium Bicarbonate Tab 650 Mg Tablet PO 650 mg BID LAQUITA Administration Radiology Results: ITS Impressions Chest X-Ray 12/08/24 05:55 IMPRESSION: 1. Bibasilar atelectasis and/or airspace disease, with small left pleural effusion. Lexiscan Stress Test 12/12/24 13:37 IMPRESSION: 1. Large distribution of severe infarct involving the apical to mid anterior segments, apical lateral segment, mid anterolateral and mid inferolateral segments, and inferior apical to mid segments of left ventricle 2. Global hypokinesis left ventricular ejection fraction measuring 30%. Labs Labs: Laboratory Tests 12/15/24 06:27 12/15/24 04:46 Calcium 8.6 Phosphorus 5.1 H Magnesium 2.5 H Iron 28 L TIBC 177 L % Saturation 16 L Ferritin 558.00 H Total Bilirubin 0.5 AST 12 L ALT 6 Alkaline Phosphatase 67 Total Protein 4.8 L Albumin 2.9 L Microbiology 12/08/24 00:14 Blood Blood Culture - Final 12/07/24 23:58 Blood Blood Culture - Final
[2024-12-15] MEDS: SODIUM CHLORIDE 0.45% 500 ML 41.67 ML IV CONT (11:13)
[2024-12-15] MEDS: SEVELAMER CARBONATE 0.8 GM ORAL POWDER PACKET PO ×2 (11:50→17:48)
[2024-12-15] MEDS: BENZONATATE 100 MG CAPSULE PO ×2 (13:59→21:28)
--- NOTE | 2024-12-15 14:00 | PM.IMPN ---
Progress Note: A&P Assessment and Plan (1) Type 2 diabetes mellitus with hyperglycemia, with long-term current use of insulin: Code(s): E11.65 - Type 2 diabetes mellitus with hyperglycemia; Z79.4 - oil heaterman (current) use of insulin Status: Acute (2) Chronic kidney disease, stage 3: Code(s): N18.30 - Chronic kidney disease, stage 3 unspecified Status: Acute (3) UTI (urinary tract infection): Code(s): N39.0 - Urinary tract infection, site not specified Status: Acute (4) Anemia: Code(s): D64.9 - Anemia, unspecified Status: Acute (5) SOB (shortness of breath): Code(s): R06.02 - Shortness of breath Status: Acute (6) ANDRES (acute kidney injury): Code(s): N17.9 - Acute kidney failure, unspecified Status: Acute (7) Acute on chronic combined systolic (congestive) and diastolic (congestive) heart failure: Code(s): I50.43 - Acute on chronic combined systolic (congestive) and diastolic (congestive) heart failure Status: Acute Plan 59-year-old female with a history of hypertension, hyperlipidemia, CKD stage 3 (followed by Dr[address] Nicole at [facility]), insulin-dependent diabetes mellitus, depression and anxiety, CAD, history of ST-elevation NV status post POBA small caliber diagonal branch 05/08/2016, history of splenic infarct, polymyalgia rheumatica, untreated DOUG per the patient's wishes, presents with shortness of breath which has been steadily worsening over many weeks. She was told by her PCP she has low hemoglobin secondary to iron deficiency. She was scheduled for outpatient blood transfusion and iron infusion which she did not get yet. She also complained of dysuria on presentation and a cough of clear sputum production. Denied any chest pain. Thinks she had heart failure but never diagnosed, she was taken off lasix some time ago and is concerned about worsening leg swelling. She was taken off of b-blockers because they caused dizziness and doesn't want to go back on. In the ER she was given IV iron, she was given Rocephin and azithromycin. She had sinus tachycardia and elevated troponin but no significant ST changes on EKG. ----- Acute on chronic anemia Suspected to be iron deficiency in the outpatient setting. 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 Iron and TIBC low, ferritin high although. S/p 400mg IV iron Continue ferrous sulfate at 325 mg p.o. q.day. hematology consult noted. Started on vitamin B12, started on [facility]. Follow-up in Hematology office FOBT positive, GI consulted Shortness of breath: Resolved. Recommend outpatient therapy. Multifactorial etiology including fluid overload, anemia, suspected community-acquired pneumonia. Ceftriaxone switch to Augmentin, continue with azithromycin for total 5 day course Acute on chronic congestive heart failure combined systolic and diastolic EF 30-35%: BNP 01538 on admission. Complaint of shortness of breath and increased leg swelling. Echocardiogram EF 30-35% Lexiscan no ischemic changes Continue Lasix 40mg IV bid, Coreg BP soft, thus cautious titration of GDMT Cardiology following ANDRES and CKD: Cr baseline 2.0-2.4 Cr 3.17 Nephrology following Diuretics per Nephrology Hyperkalemia: resolved, K 4.0 Metabolic acidosis and Hyperphosphatemia Started on Bicarb PO and Sevelamer monitor UTI: Present on admission, complained of dysuria. Urinalysis indicative of infection. Urine culture negative. Ceftriaxone started on 12/08/2024, switch to Augmentin to finish 5 days. Continue azithromycin, started on 12/07/2024. 12/07/2024 blood culture x2, no growth to date. Dysuria resolved. Insulin-dependent diabetes mellitus: Patient wanted to use her glucose monitoring and insulin pump. Risks versus benefits discussed, she signed the agreement. Continue Accu-Cheks a.c. HS otherwise. CAD status post balloon angioplasty, hyperlipidemia: Continue Repatha on discharge. Resume Plavix and monitor anemia. Polymyalgia rheumatica: Patient taken off prednisone due to side effects, she reports her stock tracer had no further recommendations. She has stiffness and pain in the morning which improves throughout the day. Continue PT/OT. Full code Strict intake/output, daily weights. Heart healthy diabetic diet SCDs. Start heparin GTT 5000 units subcutaneous on 12/13/2024. Pending disposition, cardiology nephrology following. Subjective Date/time seen: 12/15/24 14:00 Interval history: Comfortable at bedside Review of Systems Review of Systems: All systems reviewed & are unremarkable except as noted in HPI and below (Subjective) Exam Const: General: comfortable and no acute distress Other: A&O x3 HENMT: Mouth: Yes moist mucous membranes Eyes: Pupils: Equal, round and reactive pupils present Neck: Neck: supple Resp: Effort & Inspection: normal respiratory effort Auscultation: crackles Other: Bibasilar crackles Cardio: Rate: regular rate Rhythm: regular rhythm Heart sounds: no murmurs GI: Inspection: non-distended Neuro: Cranial nerves: Yes Equal, round and reactive pupils present Motor exam (neuro): 5/5 motor strength present throughout Extrem: General: edema Other: Minimal pitting edema bilateral lower extremities Psych: Mental Status: mental status grossly normal Objective Data Vital Signs Vital Signs: Vital Signs - 24 hr 12/14/24 16:00 12/14/24 16:00 12/14/24 16:00 Temperature 98.6 F Pulse Rate 88 83 Respiratory Rate 18 Blood Pressure 115/53 L 115/53 L Pulse Oximetry 97 99 Oxygen Delivery Room Air 12/14/24 16:00 12/14/24 18:00 12/14/24 18:00 Temperature Pulse Rate 86 90 90 Respiratory Rate Blood Pressure 113/45 L Pulse Oximetry Oxygen Delivery 12/14/24 18:00 12/14/24 19:48 12/14/24 20:00 Temperature 98.4 F Pulse Rate 90 86 Respiratory Rate 14 Blood Pressure 113/45 L 116/48 L Pulse Oximetry 97 Oxygen Delivery Room Air 12/14/24 20:00 12/14/24 20:30 12/14/24 20:47 Temperature Pulse Rate 88 86 91 Respiratory Rate Blood Pressure 116/48 L Pulse Oximetry Oxygen Delivery 12/14/24 22:00 12/14/24 22:00 12/14/24 22:00 Temperature Pulse Rate 88 88 89 Respiratory Rate Blood Pressure 124/57 L 124/57 L Pulse Oximetry Oxygen Delivery 12/14/24 23:48 12/15/24 00:00 12/15/24 00:00 Temperature 98.3 F Pulse Rate 86 90 Respiratory Rate 16 Blood Pressure 113/55 L Pulse Oximetry 97 Oxygen Delivery Room Air 12/15/24 00:00 12/15/24 00:42 12/15/24 00:42 Temperature Pulse Rate 86 84 84 Respiratory Rate Blood Pressure 113/55 L Pulse Oximetry Oxygen Delivery 12/15/24 01:56 12/15/24 02:07 12/15/24 04:00 Temperature 98.2 F Pulse Rate 81 83 84 Respiratory Rate 15 Blood Pressure 119/51 L 135/55 L Pulse Oximetry 100 Oxygen Delivery 12/15/24 04:00 12/15/24 04:00 12/15/24 04:00 Temperature Pulse Rate 84 79 Respiratory Rate Blood Pressure 135/55 L Pulse Oximetry Oxygen Delivery Room Air 12/15/24 06:00 12/15/24 06:04 12/15/24 08:00 Temperature 97.5 F L Pulse Rate 86 80 98 Respiratory Rate 18 Blood Pressure 124/55 L 106/51 L Pulse Oximetry 100 Oxygen Delivery 12/15/24 08:00 12/15/24 08:00 12/15/24 08:00 Temperature Pulse Rate 98 102 H Respiratory Rate Blood Pressure 106/51 L Pulse Oximetry Oxygen Delivery Room Air 12/15/24 08:44 12/15/24 10:00 12/15/24 10:00 Temperature 97.7 F Pulse Rate 97 84 84 Respiratory Rate 16 Blood Pressure 119/51 L 119/51 L Pulse Oximetry 100 Oxygen Delivery 12/15/24 10:00 12/15/24 11:45 12/15/24 11:45 Temperature Pulse Rate 84 80 80 Respiratory Rate Blood Pressure 126/59 L 126/59 L Pulse Oximetry Oxygen Delivery 12/15/24 12:00 12/15/24 12:00 12/15/24 12:00 Temperature 98.0 F Pulse Rate 81 90 Respiratory Rate 16 Blood Pressure 126/59 L Pulse Oximetry 98 Oxygen Delivery Room Air 12/15/24 12:19 Temperature Pulse Rate 81 Respiratory Rate Blood Pressure 126/59 L Pulse Oximetry Oxygen Delivery Intake/Output Intake/Output: Intake & Output 12/12/24 12/13/24 12/14/24 12/15/24 23:59 23:59 23:59 23:59 Intake Total 720 1220.3 1324.4 903.2 Output Total 3 2850 Balance 720 1217.3 -1525.6 903.2 Meds/Results Medications: Active Medications Generic Name Dose Route Start Last Admin Trade Name Freq PRN Reason Stop Dose Admin Acetaminophen 1,000 mg 12/08/24 11:31 12/15/24 04:11 Acetaminophen 500 Mg Tablet PO 1,000 mg Q6H PRN Administration Mild Pain (1-3) or Fever Artificial Tears 1 drop 12/09/24 15:34 Artificial Tears Ophth Soln 15 Ml Bottle EACH EYE QID PRN Dry Eye(s) Benzonatate 100 mg 12/15/24 14:00 12/15/24 13:59 Benzonatate 100 Mg Capsule PO 100 mg Q8HR LAQUITA Administration Bisacodyl 10 mg 12/15/24 13:28 Bisacodyl 10 Mg Suppository RECTAL PRN PRN Constipation Carvedilol 3.125 mg 12/11/24 21:00 12/15/24 08:44 Carvedilol 3.125 Mg Tablet PO 3.125 mg Q12HR LAQUITA Administration Clopidogrel Bisulfate 75 mg 12/11/24 09:00 12/15/24 08:44 Clopidogrel Bisulfate 75 Mg Tablet PO 75 mg DAILY [facility] Administration Cyanocobalamin 1,000 mcg 12/11/24 09:00 12/15/24 08:44 Cyanocobalamin 1,000 Mcg Tablet PO 1,000 mcg QAM [facility] Administration Docusate Sodium 100 mg 12/14/24 11:30 12/15/24 08:44 Docusate Sodium 100 Mg Capsule PO 100 mg Q12HR [facility] Administration Epoetin Wesley-epbx 10,000 units 12/13/24 09:00 12/15/24 09:44 Epoetin Wesley-Epbx 10,000 Units/Ml Vial SUB-Q 10,000 units TUTHSA@09 [facility] Administration Ferrous Sulfate 325 mg 12/09/24 09:00 12/15/24 08:44 Ferrous Sulfate 325 Mg Tablet PO 325 mg DAILY LAQUITA Administration Guaifenesin/Codeine Phosphate 10 ml 12/08/24 23:57 12/12/24 21:02 Guaifenesin/Codeine (*Crx) 200/20 Mg 10 Ml Syrup PO 10 ml Q6H PRN Administration Cough Heparin Sodium (Porcine) 5,000 units 12/14/24 22:00 12/15/24 13:59 Heparin Sodium 5,000 Units/Ml Vial SUB-Q 5,000 units Q8HR [facility] Administration Milrinone Lactate 20 mg/ 100 mls @ 11.49 mls/hr 12/13/24 13:30 12/15/24 12:19 Dextrose IV CONT 0.37 mcg/kg/min .Q8H43M LAQUITA 8.6 mls/hr 0.5 MCG/KG/MIN Infusion Sodium Chloride 500 mls @ 41.667 mls/hr 12/15/24 10:30 12/15/24 11:13 Sodium Chloride 0.45% IV CONT 12/15/24 22:29 41.67 mls/hr .Q12H ONE Administration Iron Sucrose 200 mg/ Sodium 110 mls @ 220 mls/hr 12/16/24 09:00 Chloride IVPB 12/18/24 09:29 DAILY [facility] Insulin Human Regular 1 each 12/09/24 06:00 12/14/24 06:20 Home Medication Insulin XX Not Given DAILY@0600 [facility] Lorazepam 0.5 mg 12/08/24 17:47 Lorazepam (*Crx) 0.5 Mg Tablet PO DAILY PRN Anxiety Polyethylene Glycol 17 gm 12/15/24 13:40 12/15/24 13:59 Polyethylene Glycol 3350 17 Gm Powd.Pack PO 17 gm QAM LAQUITA Administration Sevelamer Carbonate 0.8 gm 12/15/24 12:00 12/15/24 11:50 Sevelamer Carbonate 0.8 Gm Oral Powder Packet PO 0.8 gm TIDWM LAQUITA Administration Sodium Bicarbonate 650 mg 12/15/24 09:00 12/15/24 09:44 Sodium Bicarbonate Tab 650 Mg Tablet PO 650 mg BID LAQUITA Administration Radiology Results: ITS Impressions Chest X-Ray 12/08/24 05:55 IMPRESSION: 1. Bibasilar atelectasis and/or airspace disease, with small left pleural effusion. Lexiscan Stress Test 12/12/24 13:37 IMPRESSION: 1. Large distribution of severe infarct involving the apical to mid anterior segments, apical lateral segment, mid anterolateral and mid inferolateral segments, and inferior apical to mid segments of left ventricle 2. Global hypokinesis left ventricular ejection fraction measuring 30%. Labs Labs: Laboratory Results - last 24 hr 12/10/24 12/14/24 12/14/24 20:34 16:35 19:33 WBC RBC Hgb Hct MCV MCH MCHC RDW Plt Count MPV Immature Gran % (Auto) Neut % (Auto) Lymph % (Auto) [place] % (Auto) Eos % (Auto) Baso % (Auto) Lymph # (Auto) [place] # (Auto) Eos # (Auto) Baso # (Auto) Abs Immat Gran (auto) Absolute Neuts (auto) Absolute Nucleated RBC Band Neutrophils % Nucleated RBC % Platelet Estimate Hypochromasia Ovalocytes Schistocytes Sodium Potassium Chloride Carbon Dioxide Anion Gap BUN Creatinine Estim Creat Clear Calc Estimated GFR Glucose POC Capillary Glucose 114 H 109 H Calcium Phosphorus Magnesium Iron TIBC % Saturation Nadia Transferrin Receptr 25.4 Ferritin Total Bilirubin AST ALT Alkaline Phosphatase Total Protein Albumin Stl Occult Blood (IFOB) 12/15/24 12/15/24 12/15/24 04:46 06:27 07:33 WBC 5.3 RBC 3.19 L Hgb 8.2 L Hct 27.6 L MCV 86.5 MCH 25.7 L MCHC 29.7 L RDW 17.5 H Plt Count 248 MPV 9.7 Immature Gran % (Auto) 0.6 H Neut % (Auto) 72.6 Lymph % (Auto) 17.1 L [place] % (Auto) 9.3 H Eos % (Auto) 0.0 Baso % (Auto) 0.4 Lymph # (Auto) 0.90 [place] # (Auto) 0.5 Eos # (Auto) 0.0 Baso # (Auto) 0.0 Abs Immat Gran (auto) 0.03 Absolute Neuts (auto) 3.8 Absolute Nucleated RBC 0.000 Band Neutrophils % Not Reportable Nucleated RBC % 0.0 Platelet Estimate Adequate Hypochromasia 2+ Ovalocytes Occasional Schistocytes None seen Sodium 136 L Potassium 4.3 Chloride 103 Carbon Dioxide 20 L Anion Gap 13 H BUN 66 H Creatinine 3.17 H Estim Creat Clear Calc 18 Estimated GFR 15 L Glucose 99 POC Capillary Glucose 115 H Calcium 8.6 Phosphorus 5.1 H Magnesium 2.5 H Iron 28 L TIBC 177 L % Saturation 16 L Nadia Transferrin Receptr Ferritin 558.00 H Total Bilirubin 0.5 AST 12 L ALT 6 Alkaline Phosphatase 67 Total Protein 4.8 L Albumin 2.9 L Stl Occult Blood (IFOB) 12/15/24 12/15/24 08:21 11:32 WBC RBC Hgb Hct MCV MCH MCHC RDW Plt Count MPV Immature Gran % (Auto) Neut % (Auto) Lymph % (Auto) [place] % (Auto) Eos % (Auto) Baso % (Auto) Lymph # (Auto) [place] # (Auto) Eos # (Auto) Baso # (Auto) Abs Immat Gran (auto) Absolute Neuts (auto) Absolute Nucleated RBC Band Neutrophils % Nucleated RBC % Platelet Estimate Hypochromasia Ovalocytes Schistocytes Sodium Potassium Chloride Carbon Dioxide Anion Gap BUN Creatinine Estim Creat Clear Calc Estimated GFR Glucose POC Capillary Glucose 94 Calcium Phosphorus Magnesium Iron TIBC % Saturation Nadia Transferrin Receptr Ferritin Total Bilirubin AST ALT Alkaline Phosphatase Total Protein Albumin Stl Occult Blood (IFOB) Positive H
[2024-12-15] MEDS: BISACODYL 10 MG SUPPOSITORY RECTAL (15:23)
[2024-12-15] MEDS: MILRINONE LACTATE 20 MG in DEXTROSE 5% 80 ML 11.5 MG IV CONT (21:27)
[2024-12-16] VITALS (25 sets, daily range): BP systolic 110–131; BP diastolic 48–74; PULSE 80–107; RESP 14–16; TEMP 36.6–37.1; O2SAT 97–100
[2024-12-16] MEDS: ACETAMINOPHEN 500 MG TABLET 1000 MG PO ×4 (04:19→23:47)
[2024-12-16 04:34] LABS: Hematocrit 26.9 % (37.0-47.0); Hemoglobin 8.0 g/dL (12.0-15.0); Immature Granulocyte Percent A 0.6 % (0-0.5); Lymphocytes Absolute Auto 1.41 K/mm3 (0.9-3.2); Mean Corpuscular HGB Conc 29.7 g/dl (32-36); Mean Corpuscular Hemoglobin 25.8 pg (26-34); Mean Corpuscular Volume 86.8 fl (80-100); Nucleated Red Blood Cells Absolute Auto 0.000 K/mm3 (0.0-0.012); Nucleated Red Blood Cells Perc 0.0 % (0.0-0.2); Platelet Count Result 270 k/mm3 (150-375); Red Blood Count 3.10 M/mm3 (4.2-5.4); White Blood Count 5.4 K/mm3 (4.5-10.0)
[2024-12-16 05:22] LABS: Alanine Aminotransferase 7 U/L (6-35); Albumin Level 2.9 g/dL (3.5-5.1); Alkaline Phosphatase 66 U/L (38-126); Anion Gap 8 mmol/L (4-12); Aspartate Amino Transferase 12 U/L (14-36); Bilirubin,Total 0.3 mg/dL (0.2-1.3); Blood Urea Nitrogen 58 mg/dL (7-17); Calcium 8.4 mg/dL (8.4-10.2); Carbon Dioxide 24 mmol/L (22-30); Chloride 102 mmol/L (98-107); Estimated CRCL calculation 19 ml/min; Estimated Glomerular Filt Rate 16; Glucose 97 mg/dL (65-110); Magnesium 2.6 mg/dL (1.6-2.3); Potassium 4.2 mmol/L (3.4-5.0); Sodium 134 mmol/L (137-145); Total Protein 5.0 g/dL (6.3-8.2)
[2024-12-16 05:45] LABS: Anisocytosis 1+; Hypochromasia 1+; Schistocytes None Seen
[2024-12-16] MEDS: MILRINONE LACTATE 20 MG in DEXTROSE 5% 80 ML 11.5 MG IV CONT ×2 (06:12→23:11)
[2024-12-16] MEDS: BENZONATATE 100 MG CAPSULE PO ×3 (06:12→21:20)
[2024-12-16] MEDS: CYANOCOBALAMIN 1,000 MCG TABLET 1000 MCG PO (08:56)
[2024-12-16] MEDS: DOCUSATE SODIUM 100 MG CAPSULE PO ×2 (08:56→21:20)
[2024-12-16] MEDS: CLOPIDOGREL BISULFATE 75 MG TABLET PO (08:56)
[2024-12-16] MEDS: FERROUS SULFATE 325 MG TABLET PO (08:56)
[2024-12-16] MEDS: SODIUM BICARBONATE TAB 650 MG TABLET PO ×2 (08:56→17:59)
[2024-12-16] MEDS: SEVELAMER CARBONATE 0.8 GM ORAL POWDER PACKET PO ×3 (08:56→17:59)
[2024-12-16] MEDS: IRON SUCROSE COMPLEX 200 MG in SODIUM CHLORIDE 0.9% IV 100 ML 220 MG IVPB (09:03)
--- NOTE | 2024-12-16 09:32 | WPDGICN ---
Assessment and Plan Assessment and plan (1) Iron deficiency anemia: Code(s): D50.9 - Iron deficiency anemia, unspecified Status: Acute Plan The patient, admitted for cardiac instability, presents with black stools, however currently shows no evidence of active GI bleeding or hemodynamic instability, with stable serial hemoglobin over 72 hours and a negative rectal exam for gross blood. The most likely etiology for the dark stools is a recent increase in her oral iron supplementation dosage, especially since her prior EGD and colonoscopy in May were negative for ulcers or neoplasia; however, occult blood loss from small bowel lesions like angiodysplasia remains a possible source for her existing iron deficiency anemia. - Urgent GI investigation is not recommended at this time because her significant comorbidities (ischemic cardiomyopathy, EF?30%) and current anticoagulation and antiagreggation (heparin and clopidogrel) make the risks of procedural sedation from an endoscopy study outweigh the benefit given her clinical stability. - Therefore, we recommend supportive management with continued close monitoring of serial hemoglobin, requesting better patient documentation (including pictures) of stool characteristics to differentiate melena from iron-induced darkening, and deferring endoscopy unless objective signs of GI hemorrhage are demonstrated. - Hemoccult stool determination in this setting is not recommended (since it is frequently positive and will not guide decision making). GI Consult Note Consult date/time: 12/16/24 09:32 Reason for consult: Possible GI bleed HPI: Rosanne May is a 59-year-old female admitted on 12/07/2024 for an SOB exacerbation due to ischemic cardiomyopathy (EF?30%, Grade 3 diastolic dysfunction). Her other comorbidities include HTN, CKD Stage III, DM, polymyalgia rheumatica, sleep apnea, and iron deficiency anemia. She is currently on a Milrinone infusion, SQ heparin, and clopidogrel. The reason for GI consultation is the presence of black stools. This finding is complicated by chronic oral iron supplementation. She has been complaining of constipation, and after receiving MiraLax and an enema, she successfully evacuated the black stool this morning. Importantly, her hemoglobin has remained stable over the past three days (8.2, 8.2, 8.0 as of 12/16/2024). Recent GI evaluation in for chronic diarrhea included a normal EGD and a colonoscopy showing a 6 mm ascending colon adenoma and diverticulosis, with no evidence of cancer, IBD, or ischemic colitis. Review of Systems Review of Systems: All systems reviewed & are unremarkable except as noted in HPI and below PMFSH Past Medical History Medical History History of MD (myocardial infarction) Anemia Bilateral primary osteoarthritis of knee Coronary artery disease Depression Anxiety Insulin dependent type 2 diabetes mellitus Hyperlipidemia Chronic kidney disease, stage 3 Essential hypertension Surgical History Surgical History History of radial keratotomy History of coronary angioplasty History of section History of cardiac catheterization (2015) History of hip surgery (2019) ORIF right hip for IT fx Family History Family History Father Family history of heart disease in male family member before age 55 Family history of coronary artery disease Hypertension Grandparent Diabetes mellitus Cerebrovascular accident Mother Family history of heart disease in male family member before age 55 Family history of arthritis Endometrial cancer Social History Social History Social History: Surrogate medical decision maker: Louis May, spouse. Code status: Full code. Smoking status: Never smoker Second hand tobacco smoke exposure: No Alcohol intake: current Drinks per week: 1 Substance use: never Substance use type: does not use Do You Feel Safe in your Home?: Yes Lack of Transportation: No Lack of Food: Never True Current Housing: I Have Housing Concerned About Future Housing: No Difficulty Paying Gas/Electric Bills: No Difficulty Paying for Meds: No Currently Unemployed: No Education: Bachelor's Degree Difficulty w/ Childcare or Family Care: No Living arrangements: with family Additional living arrangements comments: Lives with in [place]. 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: No Agree to blood products: Yes Meds Home Medications and Allergies Home Medications ?Medication ?Instructions ?Recorded ?Confirmed ?Type clopidogrel 75 mg tablet 75 mg PO DAILY 08/01/19 12/08/24 History subcutaneous insulin pump (MiniMed #1 ea 08/03/19 12/08/24 History 630G Insulin Pump) insulin aspart U-100 100 unit/mL See Rx Instructions subcut 02/06/20 12/08/24 Rx subcutaneous solution (Novolog USEASDIRECTD 90 days #90 mL U-100 Insulin aspart) ferrous sulfate 325 mg (65 mg 650 mg PO DAILY 07/22/22 12/08/24 History iron) tablet (FeroSul) lorazepam 0.5 mg tablet 0.5 mg PO DAILY PRN Anxiety #30 01/10/23 12/08/24 Rx tabs blood-glucose transmitter (Dexcom 01/29/23 12/08/24 History G6 Transmitter device) tramadol 50 mg tablet See Rx Instructions PO QID PRN 02/07/24 12/08/24 Rx pain #60 tabs nystatin 100,000 unit/gram topical 1 applic topical QID 05/20/24 12/08/24 History powder (Klayesta) losartan 100 mg tablet See Rx Instructions .Route 11/29/24 12/08/24 Rx .COMPLEX #90 tabs ondansetron 4 mg disintegrating 4 mg PO Q8H PRN nausea and 11/29/24 12/08/24 Rx tablet vomiting #20 tabs Tylenol Extra Strength 650 mg PO Q8H PRN pain 12/08/24 12/08/24 History ergocalciferol (vitamin D2) 1,250 50,000 unit PO WEEKLY 12/08/24 12/08/24 History mcg (50,000 unit) capsule evolocumab 420 mg/3.5 mL 420 mg subcut .BIWEEKLY 12/08/24 12/08/24 History subcutaneous wearable injector (Repatha Pushtronex) Allergies Allergy/AdvReac Type Severity Reaction Status Date / Time levofloxacin (From Levaquin) Allergy Severe Swelling Verified 12/07/24 22:54 of Lip/Tongue/Throat itraconazole AdvReac Mild Itching Verified 12/07/24 22:54 terbinafine (From Lamisil) AdvReac Mild HOT FLASHES Verified 12/10/24 15:10 Vital Signs Vital Signs - 24 hr 12/15/24 10:00 12/15/24 10:00 12/15/24 10:00 Temperature 97.7 F Pulse Rate 84 84 84 Respiratory Rate 16 Blood Pressure 119/51 L 119/51 L Pulse Oximetry 100 Oxygen Delivery 12/15/24 11:45 12/15/24 11:45 12/15/24 12:00 Temperature 98.0 F Pulse Rate 80 80 81 Respiratory Rate 16 Blood Pressure 126/59 L 126/59 L 126/59 L Pulse Oximetry 98 Oxygen Delivery 12/15/24 12:00 12/15/24 12:00 12/15/24 12:19 Temperature Pulse Rate 90 81 Respiratory Rate Blood Pressure 126/59 L Pulse Oximetry Oxygen Delivery Room Air 12/15/24 14:00 12/15/24 14:00 12/15/24 14:00 Temperature Pulse Rate 89 85 90 Respiratory Rate Blood Pressure 113/48 L 113/48 L Pulse Oximetry Oxygen Delivery 12/15/24 16:00 12/15/24 16:00 12/15/24 16:00 Temperature 98.4 F Pulse Rate 86 101 H 101 H Respiratory Rate 15 Blood Pressure 132/62 132/62 Pulse Oximetry 100 Oxygen Delivery 12/15/24 18:00 12/15/24 18:00 12/15/24 18:46 Temperature Pulse Rate 92 97 97 Respiratory Rate Blood Pressure 139/64 139/64 Pulse Oximetry Oxygen Delivery 12/15/24 19:09 12/15/24 20:00 12/15/24 20:00 Temperature 99 F Pulse Rate 97 91 Respiratory Rate 16 Blood Pressure 144/64 H Pulse Oximetry 99 Oxygen Delivery Room Air 12/15/24 20:00 12/15/24 20:07 12/15/24 21:27 Temperature Pulse Rate 97 91 102 H Respiratory Rate Blood Pressure 144/64 H Pulse Oximetry Oxygen Delivery 12/15/24 21:27 12/15/24 21:28 12/15/24 21:48 Temperature Pulse Rate 102 H 102 H 102 H Respiratory Rate Blood Pressure 119/52 L Pulse Oximetry Oxygen Delivery 12/15/24 22:00 12/15/24 22:00 12/16/24 00:00 Temperature 98.7 F Pulse Rate 100 100 90 Respiratory Rate 16 Blood Pressure 119/52 L 126/53 L Pulse Oximetry 100 Oxygen Delivery 12/16/24 00:00 12/16/24 00:00 12/16/24 00:00 Temperature Pulse Rate 90 107 H Respiratory Rate Blood Pressure 126/53 L Pulse Oximetry Oxygen Delivery Room Air 12/16/24 01:51 12/16/24 02:00 12/16/24 02:06 Temperature Pulse Rate 85 85 85 Respiratory Rate Blood Pressure 110/48 L 110/48 L Pulse Oximetry Oxygen Delivery 12/16/24 03:49 12/16/24 04:00 12/16/24 04:00 Temperature 98.2 F Pulse Rate 84 82 Respiratory Rate 14 Blood Pressure 131/57 L Pulse Oximetry 99 Oxygen Delivery Room Air 12/16/24 04:01 12/16/24 06:00 12/16/24 06:09 Temperature Pulse Rate 83 82 80 Respiratory Rate Blood Pressure 131/57 L 116/51 L Pulse Oximetry Oxygen Delivery 12/16/24 06:12 12/16/24 08:00 12/16/24 08:56 Temperature 97.9 F Pulse Rate 80 87 95 Respiratory Rate 16 Blood Pressure 116/51 L 130/60 Pulse Oximetry 100 Oxygen Delivery Exam Narrative: Alert oriented x3, cooperative, not acutely distressed. Abdomen: Soft, nontender, no hepatosplenomegaly, bowel sounds present. Rectal examination: Empty rectal vault, no masses. Results Labs 12/16/24 03:52 12/16/24 03:52 Labs: Short CBC 12/16/24 Range/Units 03:52 WBC 5.4 (4.5-10.0) K/mm3 Hgb 8.0 L (12.0-15.0) g/dL Hct 26.9 L (37.0-47.0) % Plt Count 270 (150-375) k/mm3 BMP 12/16/24 03:52 Sodium 134 L Potassium 4.2 Chloride 102 Carbon Dioxide 24 BUN 58 H Creatinine 3.01 H Glucose 97 Calcium 8.4 Liver Function 12/16/24 Range/Units 03:52 Total Bilirubin 0.3 (0.2-1.3) mg/dL AST 12 L (14-36) U/L ALT 7 (6-35) U/L Alkaline Phosphatase 66 (38-126) U/L Albumin 2.9 L (3.5-5.1) g/dL
--- NOTE | 2024-12-16 10:53 | PM.PNCARD ---
Progress Note: A&P Assessment and Plan (1) Acute on chronic combined systolic (congestive) and diastolic (congestive) heart failure: Code(s): I50.43 - Acute on chronic combined systolic (congestive) and diastolic (congestive) heart failure Status: Acute (2) Stage 4 chronic kidney disease: Code(s): N18.4 - Chronic kidney disease, stage 4 (severe) Status: Chronic (3) Iron deficiency anemia: Code(s): D50.9 - Iron deficiency anemia, unspecified Status: Acute (4) Acute non-ST elevation myocardial infarction (NSTEMI): Code(s): I21.4 - Non-ST elevation (NSTEMI) myocardial infarction Status: Acute Plan ssessment; 1. Patient with known history of previous myocardial infarction presents with symptoms of congestive heart failure. Echocardiogram reveals systolic function reduced 30-35%. Findings are most consistent with ischemic cardiomyopathy with previous anteroseptal myocardial infarction based on EKG. 2. Increasing shortness of breath and leg edema. BNP is markedly elevated. Echocardiogram shows reduced systolic function in the range of 30-35%. Findings are suggestive of acute on chronic systolic and diastolic heart failure. Echocardiogram also suggests grade 3 diastolic dysfunction. 3. Known history of previous myocardial infarction in the past. EKG suggests old anteroseptal myocardial infarction. Rule out progression of coronary artery disease. 4. Marked anemia with hemoglobin at 7.7. MCV is normal. WBC count is normal. This could be secondary to chronic kidney failure related anemia carotid. However underlying iron deficiency anemia and other disease cannot be ruled out. 5. History of chronic stage IIIB kidney disease. BUN was 15 creatinine was 3.07 on admission with GFR at 15 suggesting stage 4 chronic kidney disease. 6. Urinary symptoms on admission. Rule out urinary tract infection Recommendations: 1. Echocardiogram was reviewed. Severely reduced ejection fraction range of 30-35%. EKG shows old anteroseptal myocardial infarction. Patient needs a pharmacological nuclear stress test to evaluate for underlying ischemic heart disease and assess for severe LV systolic dysfunction. -Nuclear stress test completed today. Baseline EKG does show deep T-wave inversion inferolaterally spread. Patient had no chest pain but had emesis during the Lexiscan stress test. -stable at present time without chest pain. 2. Patient currently on IV inotrope with Milrinone at 0.5 microgram/kg per minute and tolerating. Lasix was discontinued as patient is euvolemic and of 200 cc of normal saline was given yesterday which patient tolerated well. No cardiac arrhythmias or hypotension noted on IV Milrinone. 3. Appreciate Renal consult and follow-up. 4. Laboratory data reviewed from today. Hemoglobin decreased to 8.0. Sodium 134, potassium is 4.2, BUN 50 increased 3.01. 5. Nuclear stress test performed on 12/12/2024 reveals extensive anterior wall myocardial infarction without reversible defect an ejection fraction of 30%. Multiple weeks perfusion defects noted involving mid and the, apical lateral, mid anterolateral, mid inferolateral, inferior apical and mid segments of left ventricle. This is consistent with ischemic cardiomyopathy. 6. Continue with guideline directed medical therapy. Patient is currently on carvedilol 3.125 mg p.o. b.i.d., Plavix 75 mg daily, IV Milrinone and Lasix. Continue IV Milrinone 0.5 microgram/kg per minute for next 24 hours. Will wean off and discontinue tomorrow. -tolerating IV Milrinone and hydration. Creatinine slightly decreased at 3.0 from 3.3. -patient is currently off the Lasix. Gentle hydration today at 40 cc/hour for 500 cc of half normal saline Blood pressure 128/55 mm of mercury and heart rate is 84 per minute in normal sinus rhythm. Overall plan is to decrease and discontinue Milrinone tomorrow and ambulate patient. Will discharge patient home without any diuretics at this time and follow renal function as an outpatient. Use diuretics only if needed for leg swelling or weight gain. Patient to weigh herself daily. Subjective Date/time seen: 12/16/24 10:53 Interval history: Review of HPI: 59-year-old white female admitted via emergency room on 12/07/2024 with complaints of shortness of breath. Patient states that she has worsening shortness of breath for about 1 week now worse with activity he. Patient apparently saw her senior research scientist about a week ago and was told that her hemoglobin is low due to iron deficiency. Patient was scheduled for outpatient blood transfusion. Patient was also recently started on Repatha. Patient now has increasing shortness of breath, leg edema and urinary symptoms. Denied any complaints of fever chills or chest pain. Past medical history is significant for history of myocardial infarction, coronary artery disease, hyperlipidemia and chronic stage 3 kidney disease as well as hypertension. Admitting blood pressure was 140/76 mm of mercury and heart rate was 116 per minute. Patient had low-grade fever 100.0 F. Admitting laboratory data reveals sodium 137, potassium 4.6, BUN is 38, creatinine is 2.63. WBC count 6.7, hemoglobin 7.6, platelets are normal. Admitting proBNP was more than 30,000 and troponin was 0.876 on 12/07/2024 Patient examined at the bedside. Subjective: Patient is being treated with IV inotrope therapy with Milrinone at 0.5 microgram/kg per minute. Clinically remains euvolemic without any leg edema shortness of breath orthopnea at rest. Currently off the diuretics. Patient was given up to 500 cc of normal saline yesterday. Tolerated well Creatinine slightly reduced. Review of Systems Review of Systems: Twelve point review of system was completed. Pertinent positive and negative findings per HPI. Cardiovascular negative for shortness of breath, chest pain or palpitations. Pulmonary system positive for cough negative for shortness of breath Gastrointestinal system is negative. Neurovascular is negative Exam Narrative: Patient exhibited the bedside. Patient is awake alert appears comfortable. No significant chest pain or orthopnea. Head neck examination is unremarkable. Sclerae nonicteric. ENT examination is negative. Neck is supple. There is no JVD or carotid bruit. Lungs revealed bilateral rhonchi but decreased from yesterday. No wheezing noted. More left than right. Heart sounds reveal normal S1-S2 with a soft systolic murmur. There is no S3 or S4. Abdomen is soft nontender. There is no hepatosplenomegaly present bowel sounds present throughout Extremities reveal no leg edema. Neurological examination is intact. Objective Data Vital Signs Vital Signs: Vital Signs - 24 hr 12/15/24 11:45 12/15/24 11:45 12/15/24 12:00 Temperature 36.7 C Pulse Rate 80 80 81 Respiratory Rate 16 Blood Pressure 126/59 L 126/59 L 126/59 L Pulse Oximetry 98 Oxygen Delivery 12/15/24 12:00 12/15/24 12:00 12/15/24 12:19 Temperature Pulse Rate 90 81 Respiratory Rate Blood Pressure 126/59 L Pulse Oximetry Oxygen Delivery Room Air 12/15/24 14:00 12/15/24 14:00 12/15/24 14:00 Temperature Pulse Rate 89 85 90 Respiratory Rate Blood Pressure 113/48 L 113/48 L Pulse Oximetry Oxygen Delivery 12/15/24 16:00 12/15/24 16:00 12/15/24 16:00 Temperature 36.9 C Pulse Rate 86 101 H 101 H Respiratory Rate 15 Blood Pressure 132/62 132/62 Pulse Oximetry 100 Oxygen Delivery 12/15/24 18:00 12/15/24 18:00 12/15/24 18:46 Temperature Pulse Rate 92 97 97 Respiratory Rate Blood Pressure 139/64 139/64 Pulse Oximetry Oxygen Delivery 12/15/24 19:09 12/15/24 20:00 12/15/24 20:00 Temperature 37.2 C Pulse Rate 97 91 Respiratory Rate 16 Blood Pressure 144/64 H Pulse Oximetry 99 Oxygen Delivery Room Air 12/15/24 20:00 12/15/24 20:07 12/15/24 21:27 Temperature Pulse Rate 97 91 102 H Respiratory Rate Blood Pressure 144/64 H Pulse Oximetry Oxygen Delivery 12/15/24 21:27 12/15/24 21:28 12/15/24 21:48 Temperature Pulse Rate 102 H 102 H 102 H Respiratory Rate Blood Pressure 119/52 L Pulse Oximetry Oxygen Delivery 12/15/24 22:00 12/15/24 22:00 12/16/24 00:00 Temperature 37.1 C Pulse Rate 100 100 90 Respiratory Rate 16 Blood Pressure 119/52 L 126/53 L Pulse Oximetry 100 Oxygen Delivery 12/16/24 00:00 12/16/24 00:00 12/16/24 00:00 Temperature Pulse Rate 90 107 H Respiratory Rate Blood Pressure 126/53 L Pulse Oximetry Oxygen Delivery Room Air 12/16/24 01:51 12/16/24 02:00 12/16/24 02:06 Temperature Pulse Rate 85 85 85 Respiratory Rate Blood Pressure 110/48 L 110/48 L Pulse Oximetry Oxygen Delivery 12/16/24 03:49 12/16/24 04:00 12/16/24 04:00 Temperature 36.8 C Pulse Rate 84 82 Respiratory Rate 14 Blood Pressure 131/57 L Pulse Oximetry 99 Oxygen Delivery Room Air 12/16/24 04:01 12/16/24 06:00 12/16/24 06:09 Temperature Pulse Rate 83 82 80 Respiratory Rate Blood Pressure 131/57 L 116/51 L Pulse Oximetry Oxygen Delivery 12/16/24 06:12 12/16/24 08:00 12/16/24 08:56 Temperature 36.6 C Pulse Rate 80 87 95 Respiratory Rate 16 Blood Pressure 116/51 L 130/60 Pulse Oximetry 100 Oxygen Delivery 12/16/24 10:00 Temperature Pulse Rate 84 Respiratory Rate Blood Pressure 128/55 L Pulse Oximetry 100 Oxygen Delivery Intake/Output Intake/Output: Intake & Output 12/13/24 12/14/24 12/15/24 12/16/24 23:59 23:59 23:59 23:59 Intake Total 1220.3 1324.4 1974.7 1163.7 Output Total 3 2850 900 600 Balance 1217.3 -1525.6 1074.7 563.7 Meds/Results Medications: Active Medications Generic Name Dose Route Start Last Admin Trade Name Freq PRN Reason Stop Dose Admin Acetaminophen 1,000 mg 12/08/24 11:31 12/16/24 10:44 Acetaminophen 500 Mg Tablet PO 1,000 mg Q6H PRN Administration Mild Pain (1-3) or Fever Artificial Tears 1 drop 12/09/24 15:34 Artificial Tears Ophth Soln 15 Ml Bottle EACH EYE QID PRN Dry Eye(s) Benzonatate 100 mg 12/15/24 14:00 12/16/24 06:12 Benzonatate 100 Mg Capsule PO 100 mg Q8HR LAQUITA Administration Bisacodyl 10 mg 12/15/24 13:28 12/15/24 15:23 Bisacodyl 10 Mg Suppository RECTAL 10 mg PRN PRN Administration Constipation Carvedilol 3.125 mg 12/11/24 21:00 12/16/24 08:56 Carvedilol 3.125 Mg Tablet PO 3.125 mg Q12HR LAQUITA Administration Clopidogrel Bisulfate 75 mg 12/11/24 09:00 12/16/24 08:56 Clopidogrel Bisulfate 75 Mg Tablet PO 75 mg DAILY LAQUITA Administration Cyanocobalamin 1,000 mcg 12/11/24 09:00 12/16/24 08:56 Cyanocobalamin 1,000 Mcg Tablet PO 1,000 mcg QAM LAQUITA Administration Docusate Sodium 100 mg 12/14/24 11:30 12/16/24 08:56 Docusate Sodium 100 Mg Capsule PO 100 mg Q12HR LAQUITA Administration Epoetin Wesley-epbx 10,000 units 12/13/24 09:00 12/15/24 09:44 Epoetin Wesley-Epbx 10,000 Units/Ml Vial SUB-Q 10,000 units TUTHSA@09 LAQUITA Administration Ferrous Sulfate 325 mg 12/09/24 09:00 12/16/24 08:56 Ferrous Sulfate 325 Mg Tablet PO 325 mg DAILY LAQUITA Administration Guaifenesin/Codeine Phosphate 10 ml 12/08/24 23:57 12/12/24 21:02 Guaifenesin/Codeine (*Crx) 200/20 Mg 10 Ml Syrup PO 10 ml Q6H PRN Administration Cough Heparin Sodium (Porcine) 5,000 units 12/14/24 22:00 12/16/24 06:11 Heparin Sodium 5,000 Units/Ml Vial SUB-Q 5,000 units Q8HR LAQUITA Administration Milrinone Lactate 20 mg/ 100 mls @ 11.49 mls/hr 12/13/24 13:30 12/16/24 06:12 Dextrose IV CONT 0.5 mcg/kg/min .Q8H43M LAQUITA 11.5 mls/hr 0.5 MCG/KG/MIN Administration Iron Sucrose 200 mg/ Sodium 110 mls @ 220 mls/hr 12/16/24 09:00 12/16/24 09:03 Chloride IVPB 12/18/24 09:29 220 mls/hr DAILY [facility] Administration Insulin Human Regular 1 each 12/09/24 06:00 12/16/24 07:48 Home Medication Insulin XX Not Given DAILY@0600 [facility] Lorazepam 0.5 mg 12/08/24 17:47 Lorazepam (*Crx) 0.5 Mg Tablet PO DAILY PRN Anxiety Polyethylene Glycol 17 gm 12/15/24 13:40 12/16/24 08:55 Polyethylene Glycol 3350 17 Gm Powd.Pack PO 17 gm QAM [facility] Administration Sevelamer Carbonate 0.8 gm 12/15/24 12:00 12/16/24 08:56 Sevelamer Carbonate 0.8 Gm Oral Powder Packet PO 0.8 gm TIDWM LAQUITA Administration Sodium Bicarbonate 650 mg 12/15/24 09:00 12/16/24 08:56 Sodium Bicarbonate Tab 650 Mg Tablet PO 650 mg BID LAQUITA Administration Radiology Results: ITS Impressions Chest X-Ray 12/08/24 05:55 IMPRESSION: 1. Bibasilar atelectasis and/or airspace disease, with small left pleural effusion. Lexiscan Stress Test 12/12/24 13:37 IMPRESSION: 1. Large distribution of severe infarct involving the apical to mid anterior segments, apical lateral segment, mid anterolateral and mid inferolateral segments, and inferior apical to mid segments of left ventricle 2. Global hypokinesis left ventricular ejection fraction measuring 30%. Labs Labs: Laboratory Results - last 24 hr 12/15/24 12/15/24 12/16/24 11:32 19:35 03:52 WBC 5.4 RBC 3.10 L Hgb 8.0 L Hct 26.9 L MCV 86.8 MCH 25.8 L MCHC 29.7 L RDW 17.7 H Plt Count 270 MPV 10.1 Immature Gran % (Auto) 0.6 H Neut % (Auto) 62.9 Lymph % (Auto) 26.2 [place] % (Auto) 9.9 H Eos % (Auto) 0.0 Baso % (Auto) 0.4 Lymph # (Auto) 1.41 [place] # (Auto) 0.5 Eos # (Auto) 0.0 Baso # (Auto) 0.0 Abs Immat Gran (auto) 0.03 Absolute Neuts (auto) 3.4 Absolute Nucleated RBC 0.000 Band Neutrophils % Not Reportable Nucleated RBC % 0.0 Platelet Estimate Adequate Hypochromasia 1+ Anisocytosis 1+ Schistocytes None seen Sodium 134 L Potassium 4.2 Chloride 102 Carbon Dioxide 24 Anion Gap 8 BUN 58 H Creatinine 3.01 H Estim Creat Clear Calc 19 Estimated GFR 16 L Glucose 97 POC Capillary Glucose 94 124 H Calcium 8.4 Phosphorus 5.0 H Magnesium 2.6 H Total Bilirubin 0.3 AST 12 L ALT 7 Alkaline Phosphatase 66 Total Protein 5.0 L Albumin 2.9 L 12/16/24 07:09 WBC RBC Hgb Hct MCV MCH MCHC RDW Plt Count MPV Immature Gran % (Auto) Neut % (Auto) Lymph % (Auto) [place] % (Auto) Eos % (Auto) Baso % (Auto) Lymph # (Auto) [place] # (Auto) Eos # (Auto) Baso # (Auto) Abs Immat Gran (auto) Absolute Neuts (auto) Absolute Nucleated RBC Band Neutrophils % Nucleated RBC % Platelet Estimate Hypochromasia Anisocytosis Schistocytes Sodium Potassium Chloride Carbon Dioxide Anion Gap BUN Creatinine Estim Creat Clear Calc Estimated GFR Glucose POC Capillary Glucose 118 H Calcium Phosphorus Magnesium Total Bilirubin AST ALT Alkaline Phosphatase Total Protein Albumin
--- NOTE | 2024-12-16 11:20 | P.PNNP_ITS ---
Progress Note: A&P Assessment and Plan (1) Acute kidney injury: Code(s): N17.9 - Acute kidney failure, unspecified Status: Acute Assessment and Plan: * slow improvement noted * as note by admission creatinine (creatinine 2.63mg/dL) * worsening noted by lab trend * suspect several issues playing a role: * anemia * urinary tract infection * CHF/ischemic cardiomyopathy(element of cardiorenal syndrome) * need for IV diuretics * possible progression of disease (?) * random fluctuations in CKD due to acute illness... * other (?) * improvement in renal function noted with ionotropic support * follow trend of repeat labs and UOP (2) Stage 4 chronic kidney disease: Code(s): N18.4 - Chronic kidney disease, stage 4 (severe) Status: Chronic Assessment and Plan: * baseline creatinine usually runs around 2.0 - 2.4mg/dl * slow decline over last the 3 years due disease progression along with recurrent episodes of ANDRES, some of which linked to excess Lasix use, Bactrim use. and other medications (i.e. azathioprine) * off SGLT2 inhibtor (Jardiance) due to frequent UTIs/yeast infections * last outpatient creatinine 2.20mg/dl in October 2024 * underlying CKD due to hypertension and diabetes mellitus * well informed of her kidney disease - she is aware of the need for good glycemic and blood pressure control as well as adequate hydration * may have to accept a higher creatinine in the context of her new ischemic cardiomyopathy and on/off need for diuretic therapy to maintain stability in fluid status * follows with Dr. Pepe Nicole at [facility] (3) Ischemic cardiomyopathy: Code(s): I25.5 - Ischemic cardiomyopathy Status: Acute Assessment and Plan: * no reported history of CHF but does have known CAD * was on lasix PRN for LE edema * last Echo (August 2023) noted: * normal global left ventricular systolic function * ejection fraction is measured at 66% * impaired diastolic relaxation Grade I * no significant valvular dysfunction * repeat Echo (12/10/24): * left ventricular systolic function is moderately reduced, estimated at 30 - 35% * left ventricular diastolic function is grade III diastolic dysfunction * trace aortic valve regurgitation * mild mitral valve regurgitation * trace tricuspid valve regurgitation * moderate pulmonary hypertension, estimated pulmonary arterial systolic pressure is 49 mmHg * trace pulmonic regurgitation * stress test noted * Cardiology following given new ischemic cardiomyopathy * on milrinone gtt - plan on weaning off tomorrow * holding diuretics given stable volume status (4) SOB (shortness of breath): Code(s): R06.02 - Shortness of breath Status: Acute Assessment and Plan: * seems stable if not better * several issues contributing: * anemia * pleural effusion * CHF/ischemic cardiomyopathy * pneumonia(?) * other (?) * continue current therapy as outlined (5) Anemia: Code(s): D64.9 - Anemia, unspecified Status: Acute Assessment and Plan: * was scheduled for outpatient PRBC transfusion + IV iron * evidence of iron deficiency by recent and October 2024 labs * s/p PRBC transfusion (1 unit to date) * Epogen while hospitalized * IV venofer infusions while hospitalized * follow trend of H/H (6) UTI (urinary tract infection): Code(s): N39.0 - Urinary tract infection, site not specified Status: Acute Assessment and Plan: * admission UA suggestive * however, urine culture noted (negative) * completed antibiotics (7) Essential hypertension: Code(s): I10 - Essential (primary) hypertension Status: Chronic Assessment and Plan: * reasonable control (running on the lower side - presumably due to cardiomyopathy) * losartan on hold (due to #1) * follow trend of hemodynamics (8) Type 2 diabetes mellitus with chronic kidney disease: Code(s): E11.22 - Type 2 diabetes mellitus with diabetic chronic kidney disease Status: Chronic Assessment and Plan: * follow accu-cheks * glycemic control per hospitalist Will continue to follow. L Subjective Date/time seen: 12/16/24 11:20 Interval history: Follow-up for acute kidney injury/acute renal failure on chronic kidney disease. Renal function/creatinine a bit better by trend of labs; no apparent distress noted at this time; appears to be tolerating milrinone therapy as gentle IVF hydration; volume/fluid status stable without diuretic therapy; no other issues/events overnight or earlier this morning. Exam 2 Narrative: General: WD/WN female in NAD Heart: normal S1 and S2; no rub Lungs: clear anteriorly Abdomen: soft, nontender, nondistended, positive bowel sounds Extremities: no cyanosis or clubbing; no edema Skin: warm and intact Objective Data Vital Signs Vital Signs: Vital Signs Temp Pulse Resp BP Pulse Ox O2 Del Method 12/16/24 11:12 98.6 F 85 16 122/56 L 97 12/16/24 10:00 84 128/55 L 12/16/24 10:00 84 128/55 L 100 12/16/24 08:56 95 12/16/24 08:00 87 130/60 12/16/24 08:00 97.9 F 87 16 130/60 100 12/16/24 06:12 80 116/51 L 12/16/24 06:09 80 116/51 L 12/16/24 06:00 82 12/16/24 04:01 83 131/57 L 12/16/24 04:00 82 12/16/24 04:00 Room Air 12/16/24 03:49 98.2 F 84 14 131/57 L 99 12/16/24 02:06 85 110/48 L 12/16/24 02:00 85 12/16/24 01:51 85 110/48 L 12/16/24 00:00 107 H 12/16/24 00:00 Room Air 12/16/24 00:00 90 126/53 L 12/16/24 00:00 98.7 F 90 16 126/53 L 100 12/15/24 22:00 100 119/52 L 12/15/24 22:00 100 12/15/24 21:48 102 H 119/52 L 12/15/24 21:28 102 H 12/15/24 21:27 102 H 12/15/24 21:27 102 H 12/15/24 20:07 91 144/64 H 12/15/24 20:00 97 12/15/24 20:00 Room Air 12/15/24 20:00 99 F 91 16 144/64 H 99 12/15/24 19:09 97 12/15/24 18:46 97 139/64 12/15/24 18:00 97 139/64 12/15/24 18:00 92 12/15/24 16:00 101 H 132/62 12/15/24 16:00 101 H 12/15/24 16:00 98.4 F 86 15 132/62 100 Intake/Output Intake/Output: Intake & Output 12/13/24 12/14/24 12/15/24 12/16/24 23:59 23:59 23:59 23:59 Intake Total 1220.3 1324.4 1974.7 1498.4 Output Total 3 2850 900 600 Balance 1217.3 -1525.6 1074.7 898.4 Meds/Results Medications: Active Medications Generic Name Dose Route Start Last Admin Trade Name Freq PRN Reason Stop Dose Admin Acetaminophen 1,000 mg 12/08/24 11:31 12/16/24 10:44 Acetaminophen 500 Mg Tablet PO 1,000 mg Q6H PRN Administration Mild Pain (1-3) or Fever Artificial Tears 1 drop 12/09/24 15:34 Artificial Tears Ophth Soln 15 Ml Bottle EACH EYE QID PRN Dry Eye(s) Benzonatate 100 mg 12/15/24 14:00 12/16/24 14:27 Benzonatate 100 Mg Capsule PO 100 mg Q8HR LAQUITA Administration Bisacodyl 10 mg 12/15/24 13:28 12/15/24 15:23 Bisacodyl 10 Mg Suppository RECTAL 10 mg PRN PRN Administration Constipation Carvedilol 3.125 mg 12/11/24 21:00 12/16/24 08:56 Carvedilol 3.125 Mg Tablet PO 3.125 mg Q12HR LAQUITA Administration Clopidogrel Bisulfate 75 mg 12/11/24 09:00 12/16/24 08:56 Clopidogrel Bisulfate 75 Mg Tablet PO 75 mg DAILY LAQUITA Administration Cyanocobalamin 1,000 mcg 12/11/24 09:00 12/16/24 08:56 Cyanocobalamin 1,000 Mcg Tablet PO 1,000 mcg QAM LAQUITA Administration Docusate Sodium 100 mg 12/14/24 11:30 12/16/24 08:56 Docusate Sodium 100 Mg Capsule PO 100 mg Q12HR LAQUITA Administration Epoetin Wesley-epbx 10,000 units 12/13/24 09:00 12/15/24 09:44 Epoetin Wesley-Epbx 10,000 Units/Ml Vial SUB-Q 10,000 units TUTHSA@09 [facility] Administration Ferrous Sulfate 325 mg 12/09/24 09:00 12/16/24 08:56 Ferrous Sulfate 325 Mg Tablet PO 325 mg DAILY LAQUITA Administration Guaifenesin/Codeine Phosphate 10 ml 12/08/24 23:57 12/12/24 21:02 Guaifenesin/Codeine (*Crx) 200/20 Mg 10 Ml Syrup PO 10 ml Q6H PRN Administration Cough Heparin Sodium (Porcine) 5,000 units 12/14/24 22:00 12/16/24 14:27 Heparin Sodium 5,000 Units/Ml Vial SUB-Q 5,000 units Q8HR LAQUITA Administration Milrinone Lactate 20 mg/ 100 mls @ 11.49 mls/hr 12/13/24 13:30 12/16/24 14:26 Dextrose IV CONT 0.5 mcg/kg/min .Q8H43M LAQUITA 11.49 mls/hr 0.5 MCG/KG/MIN Administration Iron Sucrose 200 mg/ Sodium 110 mls @ 220 mls/hr 12/16/24 09:00 12/16/24 09:03 Chloride IVPB 12/18/24 09:29 220 mls/hr DAILY LAQUITA Administration Sodium Chloride 500 mls @ 41.667 mls/hr 12/16/24 11:30 12/16/24 12:08 Sodium Chloride 0.45% IV CONT 12/16/24 23:28 41.67 mls/hr .Q12H LAQUITA Administration Insulin Human Regular 1 each 12/09/24 06:00 12/16/24 07:48 Home Medication Insulin XX Not Given DAILY@0600 LAQUITA Lorazepam 0.5 mg 12/08/24 17:47 Lorazepam (*Crx) 0.5 Mg Tablet PO DAILY PRN Anxiety Ondansetron HCl 4 mg 12/16/24 11:42 12/16/24 12:07 Ondansetron Inj 4 Mg/2 Ml Vial IV PUSH 4 mg Q6H PRN Administration Nausea And Vomiting Polyethylene Glycol 17 gm 12/15/24 13:40 12/16/24 08:55 Polyethylene Glycol 3350 17 Gm Powd.Pack PO 17 gm QAM LAQUITA Administration Sevelamer Carbonate 0.8 gm 12/15/24 12:00 12/16/24 12:07 Sevelamer Carbonate 0.8 Gm Oral Powder Packet PO 0.8 gm TIDWM LAQUITA Administration Sodium Bicarbonate 650 mg 12/15/24 09:00 12/16/24 08:56 Sodium Bicarbonate Tab 650 Mg Tablet PO 650 mg BID LAQUITA Administration Radiology Results: ITS Impressions Chest X-Ray 12/08/24 05:55 IMPRESSION: 1. Bibasilar atelectasis and/or airspace disease, with small left pleural effusion. Lexiscan Stress Test 12/12/24 13:37 IMPRESSION: 1. Large distribution of severe infarct involving the apical to mid anterior segments, apical lateral segment, mid anterolateral and mid inferolateral segments, and inferior apical to mid segments of left ventricle 2. Global hypokinesis left ventricular ejection fraction measuring 30%. Labs Labs: Laboratory Tests 12/16/24 03:52 12/16/24 03:52 Calcium 8.4 Phosphorus 5.0 H Magnesium 2.6 H Total Bilirubin 0.3 AST 12 L ALT 7 Alkaline Phosphatase 66 Total Protein 5.0 L Albumin 2.9 L Microbiology 12/08/24 00:14 Blood Blood Culture - Final
[2024-12-16] MEDS: ONDANSETRON INJ 4 MG/2 ML VIAL IV PUSH (12:07)
[2024-12-16] MEDS: SODIUM CHLORIDE 0.45% 500 ML 41.67 ML IV CONT (12:08)
[2024-12-16] MEDS: MILRINONE LACTATE 20 MG in DEXTROSE 5% 80 ML 11.49 MG IV CONT (14:26)
--- NOTE | 2024-12-16 14:47 | PM.IMPN ---
Progress Note: A&P Assessment and Plan (1) Type 2 diabetes mellitus with hyperglycemia, with long-term current use of insulin: Code(s): E11.65 - Type 2 diabetes mellitus with hyperglycemia; Z79.4 - ferry terminal agent (current) use of insulin Status: Acute (2) Chronic kidney disease, stage 3: Code(s): N18.30 - Chronic kidney disease, stage 3 unspecified Status: Acute (3) UTI (urinary tract infection): Code(s): N39.0 - Urinary tract infection, site not specified Status: Acute (4) Anemia: Code(s): D64.9 - Anemia, unspecified Status: Acute (5) SOB (shortness of breath): Code(s): R06.02 - Shortness of breath Status: Acute (6) ANDRES (acute kidney injury): Code(s): N17.9 - Acute kidney failure, unspecified Status: Acute (7) Acute on chronic combined systolic (congestive) and diastolic (congestive) heart failure: Code(s): I50.43 - Acute on chronic combined systolic (congestive) and diastolic (congestive) heart failure Status: Acute Plan 59-year-old female with a history of hypertension, hyperlipidemia, CKD stage 3 (followed by Dr. Nicole at [place]), insulin-dependent diabetes mellitus, depression and anxiety, CAD, history of ST-elevation DE status post POBA small caliber diagonal branch 05/08/2016, history of splenic infarct, polymyalgia rheumatica, untreated DOUG per the patient's wishes, presents with shortness of breath which has been steadily worsening over many weeks. She was told by her PCP she has low hemoglobin secondary to iron deficiency. She was scheduled for outpatient blood transfusion and iron infusion which she did not get yet. She also complained of dysuria on presentation and a cough of clear sputum production. Denied any chest pain. Thinks she had heart failure but never diagnosed, she was taken off lasix some time ago and is concerned about worsening leg swelling. She was taken off of b-blockers because they caused dizziness and doesn't want to go back on. In the ER she was given IV iron, she was given Rocephin and azithromycin. She had sinus tachycardia and elevated troponin but no significant ST changes on EKG. ----- Acute on chronic anemia Suspected to be iron deficiency in the outpatient setting. Was started on iron by her immigration officer. Iron and TIBC low, ferritin high although. S/p 400mg IV iron , Hb 8.0 Continue ferrous sulfate at 325 mg p.o. q.day. hematology consult noted. Started on vitamin B12, started on Procrit. Follow-up in Hematology office FOBT positive, GI eval noted, deemed multifactorial and no endoscopic intervention needed Shortness of breath: Resolved. Recommend outpatient therapy. Multifactorial etiology including fluid overload, anemia, suspected community-acquired pneumonia. Ceftriaxone switch to Augmentin, continue with azithromycin for total 5 day course Acute on chronic congestive heart failure combined systolic and diastolic EF 30-35%: BNP 62396 on admission. Complaint of shortness of breath and increased leg swelling. Echocardiogram EF 30-35% Lexiscan no ischemic changes Lasix per Nephrology , Coreg BP soft, thus cautious titration of GDMT Cardiology following ANDRES and CKD: Cr baseline 2.0-2.4 Cr 3.01 from 3.31 Nephrology following Diuretics per Nephrology Hyperkalemia: resolved, K 4.0 Metabolic acidosis and Hyperphosphatemia Started on Bicarb PO and Sevelamer monitor UTI: Present on admission, complained of dysuria. Urinalysis indicative of infection. Urine culture negative. Ceftriaxone started on 12/08/2024, switch to Augmentin to finish 5 days. Continue azithromycin, started on 12/07/2024. 12/07/2024 blood culture x2, no growth to date. Dysuria resolved. Insulin-dependent diabetes mellitus: Patient wanted to use her glucose monitoring and insulin pump. Risks versus benefits discussed, she signed the agreement. Continue Accu-Cheks a.c. HS otherwise. CAD status post balloon angioplasty, hyperlipidemia: Continue Repatha on discharge. Resume Plavix and monitor anemia. Polymyalgia rheumatica: Patient taken off prednisone due to side effects, she reports her vitamin manager had no further recommendations. She has stiffness and pain in the morning which improves throughout the day. Continue PT/OT. Full code Strict intake/output, daily weights. Heart healthy diabetic diet DVT prophylaxis on Heparin 5000 units subcutaneous Pending cardiology and nephrology disposition Subjective Date/time seen: 12/16/24 14:47 Interval history: Comfortable at bedside still on Milrinone infusion Review of Systems Review of Systems: All systems reviewed & are unremarkable except as noted in HPI and below (Subjective) Exam Const: General: comfortable and no acute distress Other: A&O x3 HENMT: Mouth: Yes moist mucous membranes Eyes: Pupils: Equal, round and reactive pupils present Neck: Neck: supple Resp: Effort & Inspection: normal respiratory effort Auscultation: crackles Other: Bibasilar crackles Cardio: Rate: regular rate Rhythm: regular rhythm Heart sounds: no murmurs GI: Inspection: non-distended Neuro: Cranial nerves: Yes Equal, round and reactive pupils present Motor exam (neuro): 5/5 motor strength present throughout Extrem: General: edema Other: Minimal pitting edema bilateral lower extremities Psych: Mental Status: mental status grossly normal Objective Data Vital Signs Vital Signs: Vital Signs - 24 hr 12/15/24 16:00 12/15/24 16:00 12/15/24 16:00 Temperature 98.4 F Pulse Rate 86 101 H 101 H Respiratory Rate 15 Blood Pressure 132/62 132/62 Pulse Oximetry 100 Oxygen Delivery 12/15/24 18:00 12/15/24 18:00 12/15/24 18:46 Temperature Pulse Rate 92 97 97 Respiratory Rate Blood Pressure 139/64 139/64 Pulse Oximetry Oxygen Delivery 12/15/24 19:09 12/15/24 20:00 12/15/24 20:00 Temperature 99 F Pulse Rate 97 91 Respiratory Rate 16 Blood Pressure 144/64 H Pulse Oximetry 99 Oxygen Delivery Room Air 12/15/24 20:00 12/15/24 20:07 12/15/24 21:27 Temperature Pulse Rate 97 91 102 H Respiratory Rate Blood Pressure 144/64 H Pulse Oximetry Oxygen Delivery 12/15/24 21:27 12/15/24 21:28 12/15/24 21:48 Temperature Pulse Rate 102 H 102 H 102 H Respiratory Rate Blood Pressure 119/52 L Pulse Oximetry Oxygen Delivery 12/15/24 22:00 12/15/24 22:00 12/16/24 00:00 Temperature 98.7 F Pulse Rate 100 100 90 Respiratory Rate 16 Blood Pressure 119/52 L 126/53 L Pulse Oximetry 100 Oxygen Delivery 12/16/24 00:00 12/16/24 00:00 12/16/24 00:00 Temperature Pulse Rate 90 107 H Respiratory Rate Blood Pressure 126/53 L Pulse Oximetry Oxygen Delivery Room Air 12/16/24 01:51 12/16/24 02:00 12/16/24 02:06 Temperature Pulse Rate 85 85 85 Respiratory Rate Blood Pressure 110/48 L 110/48 L Pulse Oximetry Oxygen Delivery 12/16/24 03:49 12/16/24 04:00 12/16/24 04:00 Temperature 98.2 F Pulse Rate 84 82 Respiratory Rate 14 Blood Pressure 131/57 L Pulse Oximetry 99 Oxygen Delivery Room Air 12/16/24 04:01 12/16/24 06:00 12/16/24 06:09 Temperature Pulse Rate 83 82 80 Respiratory Rate Blood Pressure 131/57 L 116/51 L Pulse Oximetry Oxygen Delivery 12/16/24 06:12 12/16/24 08:00 12/16/24 08:00 Temperature 97.9 F Pulse Rate 80 87 87 Respiratory Rate 16 Blood Pressure 116/51 L 130/60 130/60 Pulse Oximetry 100 Oxygen Delivery 12/16/24 08:56 12/16/24 10:00 12/16/24 10:00 Temperature Pulse Rate 95 84 84 Respiratory Rate Blood Pressure 128/55 L 128/55 L Pulse Oximetry 100 Oxygen Delivery 12/16/24 11:42 12/16/24 12:00 12/16/24 14:00 Temperature 98.6 F Pulse Rate 85 85 98 Respiratory Rate 16 Blood Pressure 122/56 L 122/56 L 119/74 Pulse Oximetry 97 Oxygen Delivery 12/16/24 14:00 12/16/24 14:26 12/16/24 14:26 Temperature Pulse Rate 95 98 98 Respiratory Rate Blood Pressure 119/74 119/74 119/74 Pulse Oximetry Oxygen Delivery Intake/Output Intake/Output: Intake & Output 12/13/24 12/14/24 12/15/24 12/16/24 23:59 23:59 23:59 23:59 Intake Total 1220.3 1324.4 1974.7 1498.4 Output Total 3 2850 900 600 Balance 1217.3 -1525.6 1074.7 898.4 Meds/Results Medications: Active Medications Generic Name Dose Route Start Last Admin Trade Name Freq PRN Reason Stop Dose Admin Acetaminophen 1,000 mg 12/08/24 11:31 12/16/24 10:44 Acetaminophen 500 Mg Tablet PO 1,000 mg Q6H PRN Administration Mild Pain (1-3) or Fever Artificial Tears 1 drop 12/09/24 15:34 Artificial Tears Ophth Soln 15 Ml Bottle EACH EYE QID PRN Dry Eye(s) Benzonatate 100 mg 12/15/24 14:00 12/16/24 14:27 Benzonatate 100 Mg Capsule PO 100 mg Q8HR [facility] Administration Bisacodyl 10 mg 12/15/24 13:28 12/15/24 15:23 Bisacodyl 10 Mg Suppository RECTAL 10 mg PRN PRN Administration Constipation Carvedilol 3.125 mg 12/11/24 21:00 12/16/24 08:56 Carvedilol 3.125 Mg Tablet PO 3.125 mg Q12HR [facility]ITA Administration Clopidogrel Bisulfate 75 mg 12/11/24 09:00 12/16/24 08:56 Clopidogrel Bisulfate 75 Mg Tablet PO 75 mg DAILY [facility] Administration Cyanocobalamin 1,000 mcg 12/11/24 09:00 12/16/24 08:56 Cyanocobalamin 1,000 Mcg Tablet PO 1,000 mcg QAM [facility] Administration Docusate Sodium 100 mg 12/14/24 11:30 12/16/24 08:56 Docusate Sodium 100 Mg Capsule PO 100 mg Q12HR [facility] Administration Epoetin Wesley-epbx 10,000 units 12/13/24 09:00 12/15/24 09:44 Epoetin Wesley-Epbx 10,000 Units/Ml Vial SUB-Q 10,000 units TUTHSA@09 [facility] Administration Ferrous Sulfate 325 mg 12/09/24 09:00 12/16/24 08:56 Ferrous Sulfate 325 Mg Tablet PO 325 mg DAILY [facility] Administration Guaifenesin/Codeine Phosphate 10 ml 12/08/24 23:57 12/12/24 21:02 Guaifenesin/Codeine (*Crx) 200/20 Mg 10 Ml Syrup PO 10 ml Q6H PRN Administration Cough Heparin Sodium (Porcine) 5,000 units 12/14/24 22:00 12/16/24 14:27 Heparin Sodium 5,000 Units/Ml Vial SUB-Q 5,000 units Q8HR [facility] Administration Milrinone Lactate 20 mg/ 100 mls @ 11.49 mls/hr 12/13/24 13:30 12/16/24 14:26 Dextrose IV CONT 0.5 mcg/kg/min .Q8H43M [facility]ITA 11.49 mls/hr 0.5 MCG/KG/MIN Administration Iron Sucrose 200 mg/ Sodium 110 mls @ 220 mls/hr 12/16/24 09:00 12/16/24 09:03 Chloride IVPB 12/18/24 09:29 220 mls/hr DAILY [facility] Administration Sodium Chloride 500 mls @ 41.667 mls/hr 12/16/24 11:30 12/16/24 12:08 Sodium Chloride 0.45% IV CONT 12/16/24 23:28 41.67 mls/hr .Q12H [facility] Administration Insulin Human Regular 1 each 12/09/24 06:00 12/16/24 07:48 Home Medication Insulin XX Not Given DAILY@0600 [facility]ITA Lorazepam 0.5 mg 12/08/24 17:47 Lorazepam (*Crx) 0.5 Mg Tablet PO DAILY PRN Anxiety Ondansetron HCl 4 mg 12/16/24 11:42 12/16/24 12:07 Ondansetron Inj 4 Mg/2 Ml Vial IV PUSH 4 mg Q6H PRN Administration Nausea And Vomiting Polyethylene Glycol 17 gm 12/15/24 13:40 12/16/24 08:55 Polyethylene Glycol 3350 17 Gm Powd.Pack PO 17 gm QAM [facility] Administration Sevelamer Carbonate 0.8 gm 12/15/24 12:00 12/16/24 12:07 Sevelamer Carbonate 0.8 Gm Oral Powder Packet PO 0.8 gm TIDWM [facility] Administration Sodium Bicarbonate 650 mg 12/15/24 09:00 12/16/24 08:56 Sodium Bicarbonate Tab 650 Mg Tablet PO 650 mg BID LAQUITA Administration Radiology Results: ITS Impressions Chest X-Ray 12/08/24 05:55 IMPRESSION: 1. Bibasilar atelectasis and/or airspace disease, with small left pleural effusion. Lexiscan Stress Test 12/12/24 13:37 IMPRESSION: 1. Large distribution of severe infarct involving the apical to mid anterior segments, apical lateral segment, mid anterolateral and mid inferolateral segments, and inferior apical to mid segments of left ventricle 2. Global hypokinesis left ventricular ejection fraction measuring 30%. Labs Labs: Laboratory Results - last 24 hr 12/15/24 12/16/24 12/16/24 19:35 03:52 07:09 WBC 5.4 RBC 3.10 L Hgb 8.0 L Hct 26.9 L MCV 86.8 MCH 25.8 L MCHC 29.7 L RDW 17.7 H Plt Count 270 MPV 10.1 Immature Gran % (Auto) 0.6 H Neut % (Auto) 62.9 Lymph % (Auto) 26.2 Humphreys % (Auto) 9.9 H Eos % (Auto) 0.0 Baso % (Auto) 0.4 Lymph # (Auto) 1.41 Humphreys # (Auto) 0.5 Eos # (Auto) 0.0 Baso # (Auto) 0.0 Abs Immat Gran (auto) 0.03 Absolute Neuts (auto) 3.4 Absolute Nucleated RBC 0.000 Band Neutrophils % Not Reportable Nucleated RBC % 0.0 Platelet Estimate Adequate Hypochromasia 1+ Anisocytosis 1+ Schistocytes None seen Sodium 134 L Potassium 4.2 Chloride 102 Carbon Dioxide 24 Anion Gap 8 BUN 58 H Creatinine 3.01 H Estim Creat Clear Calc 19 Estimated GFR 16 L Glucose 97 POC Capillary Glucose 124 H 118 H Calcium 8.4 Phosphorus 5.0 H Magnesium 2.6 H Total Bilirubin 0.3 AST 12 L ALT 7 Alkaline Phosphatase 66 Total Protein 5.0 L Albumin 2.9 L 12/16/24 11:22 WBC RBC Hgb Hct MCV MCH MCHC RDW Plt Count MPV Immature Gran % (Auto) Neut % (Auto) Lymph % (Auto) Humphreys % (Auto) Eos % (Auto) Baso % (Auto) Lymph # (Auto) Humphreys # (Auto) Eos # (Auto) Baso # (Auto) Abs Immat Gran (auto) Absolute Neuts (auto) Absolute Nucleated RBC Band Neutrophils % Nucleated RBC % Platelet Estimate Hypochromasia Anisocytosis Schistocytes Sodium Potassium Chloride Carbon Dioxide Anion Gap BUN Creatinine Estim Creat Clear Calc Estimated GFR Glucose POC Capillary Glucose 166 H Calcium Phosphorus Magnesium Total Bilirubin AST ALT Alkaline Phosphatase Total Protein Albumin
[2024-12-16] MEDS: guaiFENesin/CODEINE (*CRX) 200/20 MG 10 ML SYRUP PO (23:47)
[2024-12-17] VITALS (16 sets, daily range): BP systolic 110–139; BP diastolic 49–64; PULSE 74–99; RESP 16–18; TEMP 36.8–37.1; O2SAT 98–100
[2024-12-17] MEDS: traMADol HCL (*CRX) 50 MG TABLET PO (03:38)
[2024-12-17 04:45] LABS: Hematocrit 26.8 % (37.0-47.0); Hemoglobin 7.9 g/dL (12.0-15.0); Immature Granulocyte Percent A 0.8 % (0-0.5); Lymphocytes Absolute Auto 1.11 K/mm3 (0.9-3.2); Mean Corpuscular HGB Conc 29.5 g/dl (32-36); Mean Corpuscular Hemoglobin 26.1 pg (26-34); Mean Corpuscular Volume 88.4 fl (80-100); Nucleated Red Blood Cells Absolute Auto 0.000 K/mm3 (0.0-0.012); Nucleated Red Blood Cells Perc 0.0 % (0.0-0.2); Platelet Count Result 253 k/mm3 (150-375); Red Blood Count 3.03 M/mm3 (4.2-5.4); White Blood Count 5.3 K/mm3 (4.5-10.0)
[2024-12-17 05:06] LABS: Alanine Aminotransferase 7 U/L (6-35); Albumin Level 3.0 g/dL (3.5-5.1); Alkaline Phosphatase 59 U/L (38-126); Anion Gap 8 mmol/L (4-12); Aspartate Amino Transferase 13 U/L (14-36); Bilirubin,Total 0.3 mg/dL (0.2-1.3); Blood Urea Nitrogen 55 mg/dL (7-17); Calcium 8.3 mg/dL (8.4-10.2); Carbon Dioxide 25 mmol/L (22-30); Chloride 101 mmol/L (98-107); Estimated CRCL calculation 18 ml/min; Estimated Glomerular Filt Rate 16; Glucose 106 mg/dL (65-110); Magnesium 2.5 mg/dL (1.6-2.3); Potassium 4.3 mmol/L (3.4-5.0); Sodium 134 mmol/L (137-145); Total Protein 4.9 g/dL (6.3-8.2)
[2024-12-17 05:16] LABS: Anisocytosis 1+; Hypochromasia 1+
[2024-12-17 05:17] LABS: Microcytosis 1+ (NORMAL); Ovalocytes Occasional; Schistocytes None Seen
[2024-12-17] MEDS: BENZONATATE 100 MG CAPSULE PO ×2 (06:32→15:25)
[2024-12-17] MEDS: ACETAMINOPHEN 500 MG TABLET 1000 MG PO ×2 (06:32→15:26)
[2024-12-17] MEDS: MILRINONE LACTATE 20 MG in DEXTROSE 5% 80 ML 11.5 MG IV CONT (06:36)
[2024-12-17] MEDS: SEVELAMER CARBONATE 0.8 GM ORAL POWDER PACKET PO ×2 (09:33→11:44)
[2024-12-17] MEDS: FERROUS SULFATE 325 MG TABLET PO (09:33)
[2024-12-17] MEDS: SODIUM BICARBONATE TAB 650 MG TABLET PO (09:33)
[2024-12-17] MEDS: DOCUSATE SODIUM 100 MG CAPSULE PO (09:34)
[2024-12-17] MEDS: CYANOCOBALAMIN 1,000 MCG TABLET 1000 MCG PO (09:34)
[2024-12-17] MEDS: CLOPIDOGREL BISULFATE 75 MG TABLET PO (09:34)
--- NOTE | 2024-12-17 09:45 | P.PNNP_ITS ---
Progress Note: A&P Assessment and Plan (1) Acute kidney injury: Code(s): N17.9 - Acute kidney failure, unspecified Status: Acute Assessment and Plan: * slow improvement noted * as note by admission creatinine (creatinine 2.63mg/dL) * worsening noted by lab trend * suspect several issues playing a role: * anemia * urinary tract infection * CHF/ischemic cardiomyopathy(element of cardiorenal syndrome) * need for IV diuretics * possible progression of disease (?) * random fluctuations in CKD due to acute illness... * other (?) * improvement in renal function noted with ionotropic support * follow trend of repeat labs and UOP (2) Stage 4 chronic kidney disease: Code(s): N18.4 - Chronic kidney disease, stage 4 (severe) Status: Chronic Assessment and Plan: * baseline creatinine usually runs around 2.0 - 2.4mg/dl * slow decline over last the 3 years due disease progression along with recurrent episodes of ANDRES, some of which linked to excess Lasix use, Bactrim use. and other medications (i.e. azathioprine) * off SGLT2 inhibtor (Jardiance) due to frequent UTIs/yeast infections * last outpatient creatinine 2.20mg/dl in October 2024 * underlying CKD due to hypertension and diabetes mellitus * well informed of her kidney disease - she is aware of the need for good glycemic and blood pressure control as well as adequate hydration * may have to accept a higher creatinine in the context of her new ischemic cardiomyopathy and on/off need for diuretic therapy to maintain stability in fluid status * follows with Dr. Pepe Nicole at [facility] Nephrology (3) Ischemic cardiomyopathy: Code(s): I25.5 - Ischemic cardiomyopathy Status: Acute Assessment and Plan: * no reported history of CHF but does have known CAD * was on lasix PRN for LE edema * last Echo (August 2023) noted: * normal global left ventricular systolic function * ejection fraction is measured at 66% * impaired diastolic relaxation Grade I * no significant valvular dysfunction * repeat Echo (12/10/24): * left ventricular systolic function is moderately reduced, estimated at 30 - 35% * left ventricular diastolic function is grade III diastolic dysfunction * trace aortic valve regurgitation * mild mitral valve regurgitation * trace tricuspid valve regurgitation * moderate pulmonary hypertension, estimated pulmonary arterial systolic pressure is 49 mmHg * trace pulmonic regurgitation * stress test noted * Cardiology following given new ischemic cardiomyopathy * on milrinone gtt - ongoing weaning * holding diuretics given stable volume status (4) SOB (shortness of breath): Code(s): R06.02 - Shortness of breath Status: Acute Assessment and Plan: * seems stable if not better * several issues contributing: * anemia * pleural effusion * CHF/ischemic cardiomyopathy * pneumonia(?) * other (?) * continue current therapy as outlined (5) Anemia: Code(s): D64.9 - Anemia, unspecified Status: Acute Assessment and Plan: * was scheduled for outpatient PRBC transfusion + IV iron * evidence of iron deficiency by recent and October 2024 labs * s/p PRBC transfusion (1 unit to date) * Epogen while hospitalized * IV venofer infusions while hospitalized * follow trend of H/H (6) UTI (urinary tract infection): Code(s): N39.0 - Urinary tract infection, site not specified Status: Acute Assessment and Plan: * admission UA suggestive * however, urine culture noted (negative) * completed antibiotics (7) Essential hypertension: Code(s): I10 - Essential (primary) hypertension Status: Chronic Assessment and Plan: * reasonable control (running on the lower side - presumably due to cardiomyopathy) * losartan on hold (due to #1) * follow trend of hemodynamics (8) Type 2 diabetes mellitus with chronic kidney disease: Code(s): E11.22 - Type 2 diabetes mellitus with diabetic chronic kidney disease Status: Chronic Assessment and Plan: * follow accu-cheks * glycemic control per hospitalist Will continue to follow. L Subjective Date/time seen: 12/17/24 09:45 Interval history: Follow-up for acute kidney injury/acute renal failure on chronic kidney disease. No apparent distress noted at the time of my visit; renal function/creatinine seem relatively stable at this time with reasonable urine output; milrinone gtt being weaned at this time; no other issues/events overnight or earlier this morning. Exam 2 Narrative: General: WD/WN female in NAD Heart: normal S1 and S2; no rub Lungs: clear anteriorly Abdomen: soft, nontender, nondistended, positive bowel sounds Extremities: no cyanosis or clubbing; no edema Skin: no rash Objective Data Vital Signs Vital Signs: Vital Signs Temp Pulse Resp BP Pulse Ox O2 Del Method 12/17/24 09:35 95 111/49 L 12/17/24 09:33 95 12/17/24 07:30 98.8 F 90 18 111/49 L 98 12/17/24 06:36 99 12/17/24 06:36 99 12/17/24 06:00 84 12/17/24 06:00 89 139/57 L 12/17/24 06:00 89 139/57 L 12/17/24 04:16 98.2 F 84 16 133/52 L 98 12/17/24 04:00 80 12/17/24 04:00 84 133/52 L 12/17/24 02:00 84 12/17/24 02:00 87 122/51 L 12/17/24 02:00 87 122/57 L 12/17/24 00:00 82 12/16/24 23:17 98.7 F 88 16 122/48 L 98 12/16/24 23:11 85 122/48 L 12/16/24 23:08 85 122/48 L 12/16/24 22:00 86 12/16/24 22:00 88 120/51 L 12/16/24 21:20 83 12/16/24 20:00 85 12/16/24 20:00 86 125/52 L 12/16/24 20:00 98.4 F 86 16 125/52 L 100 12/16/24 18:00 84 118/56 L 12/16/24 18:00 90 118/56 L 12/16/24 18:00 90 12/16/24 16:00 80 125/52 L 12/16/24 16:00 80 12/16/24 16:00 100 Room Air 12/16/24 16:00 98.1 F 80 14 125/52 L 100 12/16/24 14:26 98 119/74 12/16/24 14:26 98 119/74 12/16/24 14:00 83 12/16/24 14:00 95 119/74 12/16/24 14:00 98 119/74 12/16/24 12:00 86 12/16/24 12:00 97 Room Air 12/16/24 12:00 85 122/56 L Intake/Output Intake/Output: Intake & Output 12/14/24 12/15/24 12/16/24 12/17/24 23:59 23:59 23:59 23:59 Intake Total 1324.4 1974.7 2808.4 589.6 Output Total 2850 900 1900 600 Balance -1525.6 1074.7 908.4 -10.4 Meds/Results Medications: Active Medications Generic Name Dose Route Start Last Admin Trade Name Freq PRN Reason Stop Dose Admin Acetaminophen 1,000 mg 12/08/24 11:31 12/17/24 06:32 Acetaminophen 500 Mg Tablet PO 1,000 mg Q6H PRN Administration Mild Pain (1-3) or Fever Artificial Tears 1 drop 12/09/24 15:34 Artificial Tears Ophth Soln 15 Ml Bottle EACH EYE QID PRN Dry Eye(s) Benzonatate 100 mg 12/15/24 14:00 12/17/24 06:32 Benzonatate 100 Mg Capsule PO 100 mg Q8HR [facility]ITA Administration Bisacodyl 10 mg 12/15/24 13:28 12/15/24 15:23 Bisacodyl 10 Mg Suppository RECTAL 10 mg PRN PRN Administration Constipation Carvedilol 3.125 mg 12/11/24 21:00 12/17/24 09:33 Carvedilol 3.125 Mg Tablet PO 3.125 mg Q12HR [facility]ITA Administration Clopidogrel Bisulfate 75 mg 12/11/24 09:00 12/17/24 09:34 Clopidogrel Bisulfate 75 Mg Tablet PO 75 mg DAILY [facility] Administration Cyanocobalamin 1,000 mcg 12/11/24 09:00 12/17/24 09:34 Cyanocobalamin 1,000 Mcg Tablet PO 1,000 mcg QAM [facility] Administration Docusate Sodium 100 mg 12/14/24 11:30 12/17/24 09:34 Docusate Sodium 100 Mg Capsule PO 100 mg Q12HR [facility] Administration Epoetin Wesley-epbx 10,000 units 12/13/24 09:00 12/15/24 09:44 Epoetin Wesley-Epbx 10,000 Units/Ml Vial SUB-Q 10,000 units TUTHSA@09 [facility] Administration Ferrous Sulfate 325 mg 12/09/24 09:00 12/17/24 09:33 Ferrous Sulfate 325 Mg Tablet PO 325 mg DAILY [facility] Administration Guaifenesin/Codeine Phosphate 10 ml 12/08/24 23:57 12/16/24 23:47 Guaifenesin/Codeine (*Crx) 200/20 Mg 10 Ml Syrup PO 10 ml Q6H PRN Administration Cough Heparin Sodium (Porcine) 5,000 units 12/14/24 22:00 12/17/24 06:32 Heparin Sodium 5,000 Units/Ml Vial SUB-Q 5,000 units Q8HR [facility] Administration Iron Sucrose 200 mg/ Sodium 110 mls @ 220 mls/hr 12/16/24 09:00 12/16/24 09:33 Chloride IVPB 12/18/24 09:29 Infused DAILY [facility]ITA Infusion Milrinone Lactate 20 mg/ 100 mls @ 5.61 mls/hr 12/17/24 10:05 Dextrose IV CONT 12/17/24 14:04 .[id number] LAQUITA 0.25 MCG/KG/MIN Insulin Human Regular 1 each 12/09/24 06:00 12/16/24 07:48 Home Medication Insulin XX Not Given DAILY@0600 [facility] Lorazepam 0.5 mg 12/08/24 17:47 Lorazepam (*Crx) 0.5 Mg Tablet PO DAILY PRN Anxiety Ondansetron HCl 4 mg 12/16/24 11:42 12/16/24 12:07 Ondansetron Inj 4 Mg/2 Ml Vial IV PUSH 4 mg Q6H PRN Administration Nausea And Vomiting Polyethylene Glycol 17 gm 12/15/24 13:40 12/17/24 09:33 Polyethylene Glycol 3350 17 Gm Powd.Pack PO 17 gm QAM [facility] Administration Sevelamer Carbonate 0.8 gm 12/15/24 12:00 12/17/24 09:33 Sevelamer Carbonate 0.8 Gm Oral Powder Packet PO 0.8 gm TIDWM [facility] Administration Sodium Bicarbonate 650 mg 12/15/24 09:00 12/17/24 09:33 Sodium Bicarbonate Tab 650 Mg Tablet PO 650 mg BID [facility]ITA Administration Radiology Results: ITS Impressions Chest X-Ray 12/08/24 05:55 IMPRESSION: 1. Bibasilar atelectasis and/or airspace disease, with small left pleural effusion. Lexiscan Stress Test 12/12/24 13:37 IMPRESSION: 1. Large distribution of severe infarct involving the apical to mid anterior segments, apical lateral segment, mid anterolateral and mid inferolateral segments, and inferior apical to mid segments of left ventricle 2. Global hypokinesis left ventricular ejection fraction measuring 30%. Labs Labs: Laboratory Tests 12/17/24 04:12 12/17/24 04:12 Calcium 8.3 L Phosphorus 4.9 H Magnesium 2.5 H Total Bilirubin 0.3 AST 13 L ALT 7 Alkaline Phosphatase 59 Total Protein 4.9 L Albumin 3.0 L
--- NOTE | 2024-12-17 11:44 | P.PNCA_ITS ---
Progress Note: A&P Assessment and Plan (1) Acute on chronic combined systolic (congestive) and diastolic (congestive) heart failure: Code(s): I50.43 - Acute on chronic combined systolic (congestive) and diastolic (congestive) heart failure Status: Acute (2) Stage 4 chronic kidney disease: Code(s): N18.4 - Chronic kidney disease, stage 4 (severe) Status: Chronic (3) Iron deficiency anemia: Code(s): D50.9 - Iron deficiency anemia, unspecified Status: Acute (4) Acute non-ST elevation myocardial infarction (NSTEMI): Code(s): I21.4 - Non-ST elevation (NSTEMI) myocardial infarction Status: Acute Plan ssessment; 1. Patient with known history of previous myocardial infarction presents with symptoms of congestive heart failure. Echocardiogram reveals systolic function reduced 30-35%. Findings are most consistent with ischemic cardiomyopathy with previous anteroseptal myocardial infarction based on EKG. 2. Increasing shortness of breath and leg edema. BNP is markedly elevated. Echocardiogram shows reduced systolic function in the range of 30-35%. Findings are suggestive of acute on chronic systolic and diastolic heart failure. Echocardiogram also suggests grade 3 diastolic dysfunction. 3. Known history of previous myocardial infarction in the past. EKG suggests old anteroseptal myocardial infarction. Rule out progression of coronary artery disease. 4. Marked anemia with hemoglobin at 7.7. MCV is normal. WBC count is normal. This could be secondary to chronic kidney failure related anemia carotid. However underlying iron deficiency anemia and other disease cannot be ruled out. 5. History of chronic stage IIIB kidney disease. BUN was 15 creatinine was 3.07 on admission with GFR at 15 suggesting stage 4 chronic kidney disease. 6. Urinary symptoms on admission. Rule out urinary tract infection Recommendations: 1. Echocardiogram was reviewed. Severely reduced ejection fraction range of 30- 35%. EKG shows old anteroseptal myocardial infarction. Patient needs a pharmacological nuclear stress test to evaluate for underlying ischemic heart disease and assess for severe LV systolic dysfunction. -Nuclear stress test completed today. Baseline EKG does show deep T-wave inversion inferolaterally spread. Patient had no chest pain but had emesis during the Lexiscan stress test. -stable at present time without chest pain. 2. Patient currently on IV inotrope with Milrinone at 0.5 microgram/kg per minute and tolerating. Lasix was discontinued as patient is euvolemic and of 2 00 cc of normal saline was given yesterday which patient tolerated well. No cardiac arrhythmias or hypotension noted on IV Milrinone. -clinically patient has improved and feeling better symptomatically. There is no leg edema. Will decrease Milrinone to have chosen discontinued 4 hours later. 3. Appreciate Renal consult and follow-up. Currently creatinine is stable at 3 .0 4. Laboratory data reviewed from today. Hemoglobin stable at 7.9. Patient has received IV iron. Chronic anemia likely secondary to chronic renal disease. -consider outpatient injection for Hemopoietin. 5. Nuclear stress test performed on 12/12/2024 reveals extensive anterior wall myocardial infarction without reversible defect an ejection fraction of 30%. Multiple weeks perfusion defects noted involving mid and the, apical lateral, mid anterolateral, mid inferolateral, inferior apical and mid segments of left ventricle. Findings are consistent with ischemic cardiomyopathy with previous extensive anterior wall infarct and reduced systolic function. 6. Continue with guideline directed medical therapy. Patient is currently on carvedilol 3.125 mg p.o. b.i.d., Plavix 75 mg daily, IV Milrinone and Lasix. Overall patient is stable with stable creatinine at 3.0. Will reduced IV Milrinone to 0.25 microgram/kg per minute for 4 hours and then discontinue. Since patient remains euvolemic without leg edema, patient was advised to watch her weight and fluid overload with leg edema and use 40 of Lasix p.o. only as needed daily. Will await Nephrology input. Okay to follow up with her human resources benefits manager as an outpatient carotid Okay to discharge patient home later today after evaluated by Nephrology Service and stable hemodynamics. Subjective Date/time seen: 12/17/24 11:44 Interval history: Review of HPI: 59-year-old white female admitted via emergency room on 12/07/2024 with complaints of shortness of breath. Patient states that she has worsening shortness of breath for about 1 week now worse with activity he. Patient apparently saw her stacker about a week ago and was told that her hemoglobin is low due to iron deficiency. Patient was scheduled for outpatient blood transfusion. Patient was also recently started on Repatha. Patient now has increasing shortness of breath, leg edema and urinary symptoms. Denied any complaints of fever chills or chest pain. Past medical history is significant for history of myocardial infarction, coronary artery disease, hyperlipidemia and chronic stage 3 kidney disease as well as hypertension. Admitting blood pressure was 140/76 mm of mercury and heart rate was 116 per minute. Patient had low-grade fever 100.0 F. Admitting laboratory data reveals sodium 137, potassium 4.6, BUN is 38, creatinine is 2.63. WBC count 6.7, hemoglobin 7.6, platelets are normal. Admitting proBNP was more than 30,000 and troponin was 0.876 on 12/07/2024 Patient examined at the bedside. Subjective: Patient is being treated with IV inotrope therapy with Milrinone at 0.5 microgram/kg per minute. Clinically remains euvolemic without any leg edema shortness of breath orthopnea at rest. Currently off the diuretics. Patient was given up to 500 cc of normal saline yesterday. Tolerated well Creatinine remains stable at 3.02. Review of Systems Review of Systems: Twelve point review of system was completed. Pertinent positive and negative findings per HPI. Cardiovascular negative for shortness of breath, chest pain or palpitations. Pulmonary system positive for cough negative for shortness of breath Gastrointestinal system is negative. Neurovascular is negative Exam Narrative: Patient exhibited the bedside. Patient is awake alert appears comfortable. No significant chest pain or orthopnea. Head neck examination is unremarkable. Sclerae nonicteric. ENT examination is negative. Neck is supple. There is no JVD or carotid bruit. Lungs revealed bilateral rhonchi but decreased from yesterday. No wheezing noted. More left than right. Heart sounds reveal normal S1-S2 with a soft systolic murmur. There is no S3 or S4. Abdomen is soft nontender. There is no hepatosplenomegaly present bowel sounds present throughout Extremities reveal no leg edema. Neurological examination is intact. Objective Data Vital Signs Vital Signs: Vital Signs - 24 hr 12/16/24 12:00 12/16/24 12:00 12/16/24 12:00 Temperature Pulse Rate 85 86 Respiratory Rate Blood Pressure 122/56 L Pulse Oximetry 97 Oxygen Delivery Room Air 12/16/24 14:00 12/16/24 14:00 12/16/24 14:00 Temperature Pulse Rate 98 95 83 Respiratory Rate Blood Pressure 119/74 119/74 Pulse Oximetry Oxygen Delivery 12/16/24 14:26 12/16/24 14:26 12/16/24 16:00 Temperature 36.7 C Pulse Rate 98 98 80 Respiratory Rate 14 Blood Pressure 119/74 119/74 125/52 L Pulse Oximetry 100 Oxygen Delivery 12/16/24 16:00 12/16/24 16:00 12/16/24 16:00 Temperature Pulse Rate 80 80 Respiratory Rate Blood Pressure 125/52 L Pulse Oximetry 100 Oxygen Delivery Room Air 12/16/24 18:00 12/16/24 18:00 12/16/24 18:00 Temperature Pulse Rate 90 90 84 Respiratory Rate Blood Pressure 118/56 L 118/56 L Pulse Oximetry Oxygen Delivery 12/16/24 20:00 12/16/24 20:00 12/16/24 20:00 Temperature 36.9 C Pulse Rate 86 86 85 Respiratory Rate 16 Blood Pressure 125/52 L 125/52 L Pulse Oximetry 100 Oxygen Delivery 12/16/24 21:20 12/16/24 22:00 12/16/24 22:00 Temperature Pulse Rate 83 88 86 Respiratory Rate Blood Pressure 120/51 L Pulse Oximetry Oxygen Delivery 12/16/24 23:08 12/16/24 23:11 12/16/24 23:17 Temperature 37.1 C Pulse Rate 85 85 88 Respiratory Rate 16 Blood Pressure 122/48 L 122/48 L 122/48 L Pulse Oximetry 98 Oxygen Delivery 12/17/24 00:00 12/17/24 02:00 12/17/24 02:00 Temperature Pulse Rate 82 87 87 Respiratory Rate Blood Pressure 122/57 L 122/51 L Pulse Oximetry Oxygen Delivery 12/17/24 02:00 12/17/24 04:00 12/17/24 04:00 Temperature Pulse Rate 84 84 80 Respiratory Rate Blood Pressure 133/52 L Pulse Oximetry Oxygen Delivery 12/17/24 04:16 12/17/24 06:00 12/17/24 06:00 Temperature 36.8 C Pulse Rate 84 89 89 Respiratory Rate 16 Blood Pressure 133/52 L 139/57 L 139/57 L Pulse Oximetry 98 Oxygen Delivery 12/17/24 06:00 12/17/24 06:36 12/17/24 06:36 Temperature Pulse Rate 84 99 99 Respiratory Rate Blood Pressure Pulse Oximetry Oxygen Delivery 12/17/24 07:30 12/17/24 09:33 12/17/24 09:35 Temperature 37.1 C Pulse Rate 90 95 95 Respiratory Rate 18 Blood Pressure 111/49 L 111/49 L Pulse Oximetry 98 Oxygen Delivery 12/17/24 10:00 Temperature Pulse Rate Respiratory Rate Blood Pressure 110/55 L Pulse Oximetry Oxygen Delivery Intake/Output Intake/Output: Intake & Output 12/14/24 12/15/24 12/16/24 12/17/24 23:59 23:59 23:59 23:59 Intake Total 1324.4 1974.7 2808.4 589.6 Output Total 2850 900 1900 600 Balance -1525.6 1074.7 908.4 -10.4 Meds/Results Medications: Active Medications Generic Name Dose Route Start Last Admin Trade Name Freq PRN Reason Stop Dose Admin Acetaminophen 1,000 mg 12/08/24 11:31 12/17/24 06:32 Acetaminophen 500 Mg Tablet PO 1,000 mg Q6H PRN Administration Mild Pain (1-3) or Fever Artificial Tears 1 drop 12/09/24 15:34 Artificial Tears Ophth Soln 15 Ml Bottle EACH EYE QID PRN Dry Eye(s) Benzonatate 100 mg 12/15/24 14:00 12/17/24 06:32 Benzonatate 100 Mg Capsule PO 100 mg Q8HR LAQUITA Administration Bisacodyl 10 mg 12/15/24 13:28 12/15/24 15:23 Bisacodyl 10 Mg Suppository RECTAL 10 mg PRN PRN Administration Constipation Carvedilol 3.125 mg 12/11/24 21:00 12/17/24 09:33 Carvedilol 3.125 Mg Tablet PO 3.125 mg Q12HR LAQUITA Administration Clopidogrel Bisulfate 75 mg 12/11/24 09:00 12/17/24 09:34 Clopidogrel Bisulfate 75 Mg Tablet PO 75 mg DAILY LAQUITA Administration Cyanocobalamin 1,000 mcg 12/11/24 09:00 12/17/24 09:34 Cyanocobalamin 1,000 Mcg Tablet PO 1,000 mcg QAM LAQUITA Administration Docusate Sodium 100 mg 12/14/24 11:30 12/17/24 09:34 Docusate Sodium 100 Mg Capsule PO 100 mg Q12HR LAQUITA Administration Epoetin Wesley-epbx 10,000 units 12/13/24 09:00 12/15/24 09:44 Epoetin Wesley-Epbx 10,000 Units/Ml Vial SUB-Q 10,000 units TUTHSA@09 LAQUITA Administration Ferrous Sulfate 325 mg 12/09/24 09:00 12/17/24 09:33 Ferrous Sulfate 325 Mg Tablet PO 325 mg DAILY LAQUITA Administration Guaifenesin/Codeine Phosphate 10 ml 12/08/24 23:57 12/16/24 23:47 Guaifenesin/Codeine (*Crx) 200/20 Mg 10 Ml Syrup PO 10 ml Q6H PRN Administration Cough Heparin Sodium (Porcine) 5,000 units 12/14/24 22:00 12/17/24 06:32 Heparin Sodium 5,000 Units/Ml Vial SUB-Q 5,000 units Q8HR LAQUITA Administration Iron Sucrose 200 mg/ Sodium 110 mls @ 220 mls/hr 12/16/24 09:00 12/16/24 09:33 Chloride IVPB 12/18/24 09:29 Infused DAILY LAQUITA Infusion Milrinone Lactate 20 mg/ 100 mls @ 5.61 mls/hr 12/17/24 10:05 Dextrose IV CONT 12/17/24 14:04 .[id number] LAQUITA 0.25 MCG/KG/MIN Insulin Human Regular 1 each 12/09/24 06:00 12/16/24 07:48 Home Medication Insulin XX Not Given DAILY@0600 LAQUITA Lorazepam 0.5 mg 12/08/24 17:47 Lorazepam (*Crx) 0.5 Mg Tablet PO DAILY PRN Anxiety Ondansetron HCl 4 mg 12/16/24 11:42 12/16/24 12:07 Ondansetron Inj 4 Mg/2 Ml Vial IV PUSH 4 mg Q6H PRN Administration Nausea And Vomiting Polyethylene Glycol 17 gm 12/15/24 13:40 12/17/24 09:33 Polyethylene Glycol 3350 17 Gm Powd.Pack PO 17 gm QAM LAQUITA Administration Sevelamer Carbonate 0.8 gm 12/15/24 12:00 12/17/24 09:33 Sevelamer Carbonate 0.8 Gm Oral Powder Packet PO 0.8 gm TIDWM LAQUITA Administration Sodium Bicarbonate 650 mg 12/15/24 09:00 12/17/24 09:33 Sodium Bicarbonate Tab 650 Mg Tablet PO 650 mg BID LAQUITA Administration Radiology Results: ITS Impressions Chest X-Ray 12/08/24 05:55 IMPRESSION: 1. Bibasilar atelectasis and/or airspace disease, with small left pleural effusion. Lexiscan Stress Test 12/12/24 13:37 IMPRESSION: 1. Large distribution of severe infarct involving the apical to mid anterior segments, apical lateral segment, mid anterolateral and mid inferolateral segments, and inferior apical to mid segments of left ventricle 2. Global hypokinesis left ventricular ejection fraction measuring 30%. Labs Labs: Laboratory Results - last 24 hr 12/16/24 12/16/24 12/17/24 16:29 19:56 04:12 WBC 5.3 RBC 3.03 L Hgb 7.9 L Hct 26.8 L MCV 88.4 MCH 26.1 MCHC 29.5 L RDW 18.2 H Plt Count 253 MPV 9.8 Immature Gran % (Auto) 0.8 H Neut % (Auto) 66.1 Lymph % (Auto) 21.0 [place] % (Auto) 11.7 H Eos % (Auto) 0.0 Baso % (Auto) 0.4 Lymph # (Auto) 1.11 [place] # (Auto) 0.6 Eos # (Auto) 0.0 Baso # (Auto) 0.0 Abs Immat Gran (auto) 0.04 H Absolute Neuts (auto) 3.5 Absolute Nucleated RBC 0.000 Band Neutrophils % Not Reportable Nucleated RBC % 0.0 Platelet Estimate Adequate Hypochromasia 1+ Anisocytosis 1+ Microcytosis 1+ Ovalocytes Occasional Schistocytes None seen Sodium 134 L Potassium 4.3 Chloride 101 Carbon Dioxide 25 Anion Gap 8 BUN 55 H Creatinine 3.05 H Estim Creat Clear Calc 18 Estimated GFR 16 L Glucose 106 POC Capillary Glucose 127 H 122 H Calcium 8.3 L Phosphorus 4.9 H Magnesium 2.5 H Total Bilirubin 0.3 AST 13 L ALT 7 Alkaline Phosphatase 59 Total Protein 4.9 L Albumin 3.0 L 12/17/24 07:17 WBC RBC Hgb Hct MCV MCH MCHC RDW Plt Count MPV Immature Gran % (Auto) Neut % (Auto) Lymph % (Auto) [place] % (Auto) Eos % (Auto) Baso % (Auto) Lymph # (Auto) [place] # (Auto) Eos # (Auto) Baso # (Auto) Abs Immat Gran (auto) Absolute Neuts (auto) Absolute Nucleated RBC Band Neutrophils % Nucleated RBC % Platelet Estimate Hypochromasia Anisocytosis Microcytosis Ovalocytes Schistocytes Sodium Potassium Chloride Carbon Dioxide Anion Gap BUN Creatinine Estim Creat Clear Calc Estimated GFR Glucose POC Capillary Glucose 118 H Calcium Phosphorus Magnesium Total Bilirubin AST ALT Alkaline Phosphatase Total Protein Albumin
[2024-12-17] MEDS: IRON SUCROSE COMPLEX 200 MG in SODIUM CHLORIDE 0.9% IV 100 ML 220 MG IVPB (11:46)
--- NOTE | 2024-12-17 11:46 | PCNWS ---
Weekly nutritional screen. Patient is tolerating current heart healthy / diabetic diet with adequate intake 100% of meals. No weight loss reported. No nutritional recommendations at this time.
[2024-12-17] MEDS: MILRINONE LACTATE 20 MG in DEXTROSE 5% 80 ML 5.61 MG IV CONT (11:47)
[2024-12-17] MEDS: HOME MEDICATION INSULIN 1 EACH XX (11:48)
--- NOTE | 2024-12-17 14:17 | P.PNIM_ITS ---
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 Status: Acute (2) Chronic kidney disease, stage 3: Code(s): N18.30 - Chronic kidney disease, stage 3 unspecified Status: Acute (3) UTI (urinary tract infection): Code(s): N39.0 - Urinary tract infection, site not specified Status: Acute (4) Anemia: Code(s): D64.9 - Anemia, unspecified Status: Acute (5) SOB (shortness of breath): Code(s): R06.02 - Shortness of breath Status: Acute (6) ANDRES (acute kidney injury): Code(s): N17.9 - Acute kidney failure, unspecified Status: Acute (7) Acute on chronic combined systolic (congestive) and diastolic (congestive) heart failure: Code(s): I50.43 - Acute on chronic combined systolic (congestive) and diastolic (congestive) heart failure Status: Acute Plan 59-year-old female with a history of hypertension, hyperlipidemia, CKD stage 3 (followed by Dr. Nicole at [place]), insulin-dependent diabetes mellitus, depression and anxiety, CAD, history of ST-elevation NC status post POBA small caliber diagonal branch 05/08/2016, history of splenic infarct, polymyalgia rheumatica, untreated DOUG per the patient's wishes, presents with shortness of b reath which has been steadily worsening over many weeks. She was told by her PCP she has low hemoglobin secondary to iron deficiency. She was scheduled for outpatient blood transfusion and iron infusion which she did not get yet. She also complained of dysuria on presentation and a cough of clear sputum production. Denied any chest pain. Thinks she had heart failure but never diagnosed, she was taken off lasix some time ago and is concerned about worsening leg swelling. She was taken off of b-blockers because they caused dizziness and doesn't want to go back on. In the ER she was given IV iron, she was given Rocephin and azithromycin. She had sinus tachycardia and elevated troponin but no significant ST changes on EKG. ----- Acute on chronic anemia Suspected to be iron deficiency in the outpatient setting. Was started on iron by her spot remover. Iron and TIBC low, ferritin high although. S/p 600mg IV iron , Hb 7.9 Continue ferrous sulfate at 325 mg p.o. q.day. hematology consult noted. Started on vitamin B12, started on Procrit. Follow-up in Hematology office FOBT positive, GI eval noted, deemed multifactorial and no endoscopic intervention needed Shortness of breath: Resolved. Recommend outpatient therapy. Multifactorial etiology including fluid overload, anemia, suspected community-acquired pneumonia. Ceftriaxone switch to Augmentin, continue with azithromycin for total 5 day course Acute on chronic congestive heart failure combined systolic and diastolic EF 30- 35%: BNP 86869 on admission. Complaint of shortness of breath and increased leg swelling. Echocardiogram EF 30-35% Lexiscan no ischemic changes Lasix per Nephrology , Coreg BP soft, thus cautious titration of GDMT WIll finish Milrinone infusion today Cardiology following ANDRES and CKD: Cr baseline 2.0-2.4 Cr 3.05 from 3.31 Nephrology following Diuretics per Nephrology Hyperkalemia: resolved, K 4.0 Metabolic acidosis and Hyperphosphatemia Started on Bicarb PO and Sevelamer monitor UTI: Present on admission, complained of dysuria. Urinalysis indicative of infection. Urine culture negative. Ceftriaxone started on 12/08/2024, switch to Augmentin to finish 5 days. Continue azithromycin, started on 12/07/2024. 12/07/2024 blood culture x2, no growth to date. Dysuria resolved. Insulin-dependent diabetes mellitus: Patient wanted to use her glucose monitori ng and insulin pump. Risks versus benefits discussed, she signed the agreement. Continue Accu-Cheks a.c. HS otherwise. CAD status post balloon angioplasty, hyperlipidemia: Continue Repatha on disc harge. Resume Plavix and monitor anemia. Polymyalgia rheumatica: Patient taken off prednisone due to side effects, she reports her clinical laboratory director had no further recommendations. She has stiffness and pain in the morning which improves throughout the day. Continue PT/OT. Full code Strict intake/output, daily weights. Heart healthy diabetic diet DVT prophylaxis on Heparin 5000 units subcutaneous Pending Nephrology clearance Subjective Date/time seen: 12/17/24 14:17 Interval history: Comfortable at bedisde Released by cardiology awaiting Nephrology. Review of Systems Review of Systems: All systems reviewed & are unremarkable except as noted in HPI and below (Subjective) Exam Const: General: comfortable and no acute distress Other: A&O x3 HENMT: Mouth: Yes moist mucous membranes Eyes: Pupils: Equal, round and reactive pupils present Neck: Neck: supple Resp: Effort & Inspection: normal respiratory effort Auscultation: crackles Other: Bibasilar crackles Cardio: Rate: regular rate Rhythm: regular rhythm Heart sounds: no murmurs GI: Inspection: non-distended Neuro: Cranial nerves: Yes Equal, round and reactive pupils present Motor exam (neuro): 5/5 motor strength present throughout Extrem: General: edema Other: Minimal pitting edema bilateral lower extremities Psych: Mental Status: mental status grossly normal Objective Data Vital Signs Vital Signs: Vital Signs - 24 hr 12/16/24 14:26 12/16/24 14:26 12/16/24 16:00 Temperature 98.1 F Pulse Rate 98 98 80 Respiratory Rate 14 Blood Pressure 119/74 119/74 125/52 L Pulse Oximetry 100 Oxygen Delivery 12/16/24 16:00 12/16/24 16:00 12/16/24 16:00 Temperature Pulse Rate 80 80 Respiratory Rate Blood Pressure 125/52 L Pulse Oximetry 100 Oxygen Delivery Room Air 12/16/24 18:00 12/16/24 18:00 12/16/24 18:00 Temperature Pulse Rate 90 90 84 Respiratory Rate Blood Pressure 118/56 L 118/56 L Pulse Oximetry Oxygen Delivery 12/16/24 20:00 12/16/24 20:00 12/16/24 20:00 Temperature 98.4 F Pulse Rate 86 86 85 Respiratory Rate 16 Blood Pressure 125/52 L 125/52 L Pulse Oximetry 100 Oxygen Delivery 12/16/24 21:20 12/16/24 22:00 12/16/24 22:00 Temperature Pulse Rate 83 88 86 Respiratory Rate Blood Pressure 120/51 L Pulse Oximetry Oxygen Delivery 12/16/24 23:08 12/16/24 23:11 12/16/24 23:17 Temperature 98.7 F Pulse Rate 85 85 88 Respiratory Rate 16 Blood Pressure 122/48 L 122/48 L 122/48 L Pulse Oximetry 98 Oxygen Delivery 12/17/24 00:00 12/17/24 02:00 12/17/24 02:00 Temperature Pulse Rate 82 87 87 Respiratory Rate Blood Pressure 122/57 L 122/51 L Pulse Oximetry Oxygen Delivery 12/17/24 02:00 12/17/24 04:00 12/17/24 04:00 Temperature Pulse Rate 84 84 80 Respiratory Rate Blood Pressure 133/52 L Pulse Oximetry Oxygen Delivery 12/17/24 04:16 12/17/24 06:00 12/17/24 06:00 Temperature 98.2 F Pulse Rate 84 89 89 Respiratory Rate 16 Blood Pressure 133/52 L 139/57 L 139/57 L Pulse Oximetry 98 Oxygen Delivery 12/17/24 06:00 12/17/24 06:36 12/17/24 06:36 Temperature Pulse Rate 84 99 99 Respiratory Rate Blood Pressure Pulse Oximetry Oxygen Delivery 12/17/24 07:30 12/17/24 09:33 12/17/24 09:35 Temperature 98.8 F Pulse Rate 90 95 95 Respiratory Rate 18 Blood Pressure 111/49 L 111/49 L Pulse Oximetry 98 Oxygen Delivery 12/17/24 10:00 12/17/24 11:47 12/17/24 12:00 Temperature 98.3 F Pulse Rate 74 81 Respiratory Rate 18 Blood Pressure 110/55 L 125/52 L Pulse Oximetry 100 Oxygen Delivery Intake/Output Intake/Output: Intake & Output 12/14/24 12/15/24 12/16/24 12/17/24 23:59 23:59 23:59 23:59 Intake Total 1324.4 1974.7 2808.4 829.6 Output Total 2850 900 1900 600 Balance -1525.6 1074.7 908.4 229.6 Meds/Results Medications: Active Medications Generic Name Dose Route Start Last Admin Trade Name Nathanaelq PRN Reason Stop Dose Admin Acetaminophen 1,000 mg 12/08/24 11:31 12/17/24 06:32 Acetaminophen 500 Mg Tablet PO 1,000 mg Q6H PRN Administration Mild Pain (1-3) or Fever Artificial Tears 1 drop 12/09/24 15:34 Artificial Tears Ophth Soln 15 Ml Bottle EACH EYE QID PRN Dry Eye(s) Benzonatate 100 mg 12/15/24 14:00 12/17/24 06:32 Benzonatate 100 Mg Capsule PO 100 mg Q8HR LAQUITA Administration Bisacodyl 10 mg 12/15/24 13:28 12/15/24 15:23 Bisacodyl 10 Mg Suppository RECTAL 10 mg PRN PRN Administration Constipation Carvedilol 3.125 mg 12/11/24 21:00 12/17/24 09:33 Carvedilol 3.125 Mg Tablet PO 3.125 mg Q12HR LAQUITA Administration Clopidogrel Bisulfate 75 mg 12/11/24 09:00 12/17/24 09:34 Clopidogrel Bisulfate 75 Mg Tablet PO 75 mg DAILY LAQUITA Administration Cyanocobalamin 1,000 mcg 12/11/24 09:00 12/17/24 09:34 Cyanocobalamin 1,000 Mcg Tablet PO 1,000 mcg QAM LAQUITA Administration Docusate Sodium 100 mg 12/14/24 11:30 12/17/24 09:34 Docusate Sodium 100 Mg Capsule PO 100 mg Q12HR LAQUITA Administration Epoetin Wesley-epbx 10,000 units 12/13/24 09:00 12/15/24 09:44 Epoetin Wesley-Epbx 10,000 Units/Ml Vial SUB-Q 10,000 units TUTHSA@09 LAQUITA Administration Ferrous Sulfate 325 mg 12/09/24 09:00 12/17/24 09:33 Ferrous Sulfate 325 Mg Tablet PO 325 mg DAILY LAQUITA Administration Guaifenesin/Codeine Phosphate 10 ml 12/08/24 23:57 12/16/24 23:47 Guaifenesin/Codeine (*Crx) 200/20 Mg 10 Ml Syrup PO 10 ml Q6H PRN Administration Cough Heparin Sodium (Porcine) 5,000 units 12/14/24 22:00 12/17/24 06:32 Heparin Sodium 5,000 Units/Ml Vial SUB-Q 5,000 units Q8HR LAQUITA Administration Iron Sucrose 200 mg/ Sodium 110 mls @ 220 mls/hr 12/16/24 09:00 12/17/24 11:46 Chloride IVPB 12/18/24 09:29 220 mls/hr DAILY LAQUITA Administration Insulin Human Regular 1 each 12/09/24 06:00 12/17/24 11:48 Home Medication Insulin XX 1 each DAILY@0600 LAQUITA Administration Lorazepam 0.5 mg 12/08/24 17:47 Lorazepam (*Crx) 0.5 Mg Tablet PO DAILY PRN Anxiety Ondansetron HCl 4 mg 12/16/24 11:42 12/16/24 12:07 Ondansetron Inj 4 Mg/2 Ml Vial IV PUSH 4 mg Q6H PRN Administration Nausea And Vomiting Polyethylene Glycol 17 gm 12/15/24 13:40 12/17/24 09:33 Polyethylene Glycol 3350 17 Gm Powd.Pack PO 17 gm QAM LAQUITA Administration Sevelamer Carbonate 0.8 gm 12/15/24 12:00 12/17/24 11:44 Sevelamer Carbonate 0.8 Gm Oral Powder Packet PO 0.8 gm TIDWM LAQUITA Administration Sodium Bicarbonate 650 mg 12/15/24 09:00 12/17/24 09:33 Sodium Bicarbonate Tab 650 Mg Tablet PO 650 mg BID LAQUITA Administration Radiology Results: ITS Impressions Chest X-Ray 12/08/24 05:55 IMPRESSION: 1. Bibasilar atelectasis and/or airspace disease, with small left pleural effusion. Lexiscan Stress Test 12/12/24 13:37 IMPRESSION: 1. Large distribution of severe infarct involving the apical to mid anterior segments, apical lateral segment, mid anterolateral and mid inferolateral segments, and inferior apical to mid segments of left ventricle 2. Global hypokinesis left ventricular ejection fraction measuring 30%. Labs Labs: Laboratory Results - last 24 hr 12/16/24 12/16/24 12/17/24 16:29 19:56 04:12 WBC 5.3 RBC 3.03 L Hgb 7.9 L Hct 26.8 L MCV 88.4 MCH 26.1 MCHC 29.5 L RDW 18.2 H Plt Count 253 MPV 9.8 Immature Gran % (Auto) 0.8 H Neut % (Auto) 66.1 Lymph % (Auto) 21.0 [place] % (Auto) 11.7 H Eos % (Auto) 0.0 Baso % (Auto) 0.4 Lymph # (Auto) 1.11 [place] # (Auto) 0.6 Eos # (Auto) 0.0 Baso # (Auto) 0.0 Abs Immat Gran (auto) 0.04 H Absolute Neuts (auto) 3.5 Absolute Nucleated RBC 0.000 Band Neutrophils % Not Reportable Nucleated RBC % 0.0 Platelet Estimate Adequate Hypochromasia 1+ Anisocytosis 1+ Microcytosis 1+ Ovalocytes Occasional Schistocytes None seen Sodium 134 L Potassium 4.3 Chloride 101 Carbon Dioxide 25 Anion Gap 8 BUN 55 H Creatinine 3.05 H Estim Creat Clear Calc 18 Estimated GFR 16 L Glucose 106 POC Capillary Glucose 127 H 122 H Calcium 8.3 L Phosphorus 4.9 H Magnesium 2.5 H Total Bilirubin 0.3 AST 13 L ALT 7 Alkaline Phosphatase 59 Total Protein 4.9 L Albumin 3.0 L 12/17/24 07:17 WBC RBC Hgb Hct MCV MCH MCHC RDW Plt Count MPV Immature Gran % (Auto) Neut % (Auto) Lymph % (Auto) [place] % (Auto) Eos % (Auto) Baso % (Auto) Lymph # (Auto) [place] # (Auto) Eos # (Auto) Baso # (Auto) Abs Immat Gran (auto) Absolute Neuts (auto) Absolute Nucleated RBC Band Neutrophils % Nucleated RBC % Platelet Estimate Hypochromasia Anisocytosis Microcytosis Ovalocytes Schistocytes Sodium Potassium Chloride Carbon Dioxide Anion Gap BUN Creatinine Estim Creat Clear Calc Estimated GFR Glucose POC Capillary Glucose 118 H Calcium Phosphorus Magnesium Total Bilirubin AST ALT Alkaline Phosphatase Total Protein Albumin
--- NOTE | 2024-12-17 15:58 | P.DS_ITS ---
DS: Admitting Diagnosis Discharge Date 12/17/24 Admitting Diagnosis SOB DS: Discharge Diagnosis Discharge Diagnosis (1) Acute on chronic combined systolic (congestive) and diastolic (congestive) heart failure: Code(s): I50.43 - Acute on chronic combined systolic (congestive) and diastolic (congestive) heart failure Status: Acute DS: Summary Hospital Course Hospital Course: Summary: Ms. May is a 59-year-old female with a complex medical history including hypertension, hyperlipidemia, insulin-dependent type 2 diabetes, stage 4 chronic kidney disease (baseline Cr 2.0?2.4), ischemic cardiomyopathy (EF 30?35%), prior STEMI (2017), CAD s/p POBA, polymyalgia rheumatica, depression, anxiety, and untreated DOUG. She presented with several weeks of progressive exertional dyspnea, worsening lower extremity edema, and new-onset dysuria. Initial Evaluation: * In the ED, she was found to be tachycardic with elevated troponin (no acute EKG changes), proBNP >30,000, and acute on chronic anemia (Hb 6.9?7.9). She was also noted to have ANDRES (Cr 2.63 ? 3.07), and urinalysis suggestive of UTI. * Imaging: CXR with bibasilar atelectasis/airspace disease, small left pleural effusion. * Echocardiogram: Moderately reduced LVEF (30?35%), grade III diastolic dy sfunction, moderate pulmonary hypertension (PASP 49 mmHg), mild LA enlargement, mild MR, trace AR/TR/OH. Hospital Course: * Heart Failure/Ischemic Cardiomyopathy:?Managed for acute on chronic combined systolic and diastolic heart failure. Initiated on IV milrinone for inotropic support, with careful diuresis (Lasix IV, then held as euvolemia achieved). GDMT titrated as tolerated (carvedilol, hydralazine/isosorbide considered; ACEi/ARB held due to renal dysfunction). No recurrent chest pain; nuclear stress test confirmed extensive anterior wall infarct without reversible ischemia. Also managed with milrinone which was discontinued today by administrative support technician * Acute on Chronic Kidney Disease:?Monitored closely with nephrology. ANDRES attributed to cardiorenal syndrome, anemia, and infection. Renal function stabilized with supportive care and avoidance of nephrotoxins. SGLT2i and losartan held. * Anemia:?Multifactorial (CKD, iron deficiency, possible GI losses). Received 1 unit PRBC, IV iron, started on epoetin octavia and B12 supplementation. GI consult deferred endoscopy due to clinical stability and comorbidities; recent EGD/colonoscopy (May 2024) unremarkable except for small adenoma and div erticulosis. * Infection:?Treated for UTI (ceftriaxone, transitioned to Augmentin), and possible community-acquired pneumonia (azithromycin). Blood and urine cultures negative. Dysuria and cough resolved. * Diabetes:?Continued on home insulin pump and self-monitoring per patient preference. * Other:?DVT prophylaxis with SQ heparin. Polymyalgia rheumatica off steroids; supportive care with PT/OT. Clinical Status at Discharge: * Euvolemic, off IV inotropes, stable renal function (Cr ?3.0), stable hemoglobin (7.9?8.2), no active infection, no ongoing dyspnea or edema. * Discharged on heart failure regimen as tolerated, oral iron, epoetin octavia, B12, and follow-up with nephrology, cardiology, hematology, and primary care. Perez Follow-up Needs: * Close monitoring of renal function, volume status, and hemoglobin. * Outpatient hematology for ongoing anemia management. * Cardiology for ischemic cardiomyopathy and heart failure optimization. * Nephrology for advanced CKD management ([facility] ) * GI follow-up only if overt GI bleeding or significant anemia recurrence. Time Spent with Patient Time attestation: Total time spent providing and/or coordinating discharge services: DS: Data Data Completed and Pending Labs on day of discharge: Labs from last 24 hours 12/17/24 12/17/24 12/17/24 15:51 07:17 04:12 WBC 5.3 RBC 3.03 L Hgb 7.9 L Hct 26.8 L MCV 88.4 MCH 26.1 MCHC 29.5 L RDW 18.2 H Plt Count 253 MPV 9.8 Immature Gran % (Auto) 0.8 H Neut % (Auto) 66.1 Lymph % (Auto) 21.0 [place] % (Auto) 11.7 H Eos % (Auto) 0.0 Baso % (Auto) 0.4 Lymph # (Auto) 1.11 [place] # (Auto) 0.6 Eos # (Auto) 0.0 Baso # (Auto) 0.0 Abs Immat Gran (auto) 0.04 H Absolute Neuts (auto) 3.5 Absolute Nucleated RBC 0.000 Band Neutrophils % Not Reportable Nucleated RBC % 0.0 Platelet Estimate Adequate Hypochromasia 1+ Anisocytosis 1+ Microcytosis 1+ Ovalocytes Occasional Schistocytes None seen Sodium 134 L Potassium 4.3 Chloride 101 Carbon Dioxide 25 Anion Gap 8 BUN 55 H Creatinine 3.05 H Estim Creat Clear Calc 18 Estimated GFR 16 L Glucose 106 POC Capillary Glucose 87 118 H Calcium 8.3 L Phosphorus 4.9 H Magnesium 2.5 H Total Bilirubin 0.3 AST 13 L ALT 7 Alkaline Phosphatase 59 Total Protein 4.9 L Albumin 3.0 L 12/16/24 12/16/24 19:56 16:29 WBC RBC Hgb Hct MCV MCH MCHC RDW Plt Count MPV Immature Gran % (Auto) Neut % (Auto) Lymph % (Auto) [place] % (Auto) Eos % (Auto) Baso % (Auto) Lymph # (Auto) [place] # (Auto) Eos # (Auto) Baso # (Auto) Abs Immat Gran (auto) Absolute Neuts (auto) Absolute Nucleated RBC Band Neutrophils % Nucleated RBC % Platelet Estimate Hypochromasia Anisocytosis Microcytosis Ovalocytes Schistocytes Sodium Potassium Chloride Carbon Dioxide Anion Gap BUN Creatinine Estim Creat Clear Calc Estimated GFR Glucose POC Capillary Glucose 122 H 127 H Calcium Phosphorus Magnesium Total Bilirubin AST ALT Alkaline Phosphatase Total Protein Albumin Discharge Plan Discharge Attending physician on discharge: Deepak Benoit Consulting providers: Fortunato Washington; Brie Mesa; Gio Kan Discharging Clinician: Deepak Benoit Anticipated Discharge Date/Time: 12/17/24 15:52 Patient Disposition: Home Activity: as tolerated Diet: as tolerated and heart healthy Patient Instructions: Antibiotic Form, Heart Attack (GEN), Heart Failure (GEN), Urinary Tract Infection in Women (GEN), Chronic Kidney Disease (GEN), Heart Healthy Diet (GEN), Sepsis (GEN), Low-Sodium Diet (GEN), Pneumonia (GEN), Complications of Infection (GEN) Patient Language: Turkmen Stand Alone Forms: General Discharge Information Follow-up/Referrals: Fortunato Washington MD [Physician, Hematology] Referral Note: F/u with hematology as instructed Brie Mesa MD [Physician, Nephrology] Referral Note: F/u with Nephrology as instructed Gio Kan MD [Physician, Cardiology] Referral Note: F/u with Cardiology as instructe Cheikh Ackerman MD [Primary Care Provider, [facility]] Referral Note: F/u wtih PCP in 3-5 days Discharge Medications: New carvedilol [Coreg] 3.125 mg Tablet 3.125 mg PO Q12HR 30 Days Qty: 60 1RF cyanocobalamin (vitamin B-12) [Vitamin B-12] 1,000 mcg Tablet 1,000 mcg PO QAM 30 Days Qty: 30 0RF Continued (DME) Dexcom G6 Transmitter Device MISCELLANEOUS tramadol 50 mg tablet See Rx Instructions PO QID PRN (Reason: pain) Qty: 60 2RF Rx Instructions: Take 1 or 2 tablets orally four times daily PRN; clopidogrel 75 mg tablet 75 mg PO DAILY (DME) MiniMed 630G Insulin Pump Misc See Rx Instructions .ROUTE .MEDSUPPLY Qty: 1 Rx Instructions: She is using this Medtronic insulin pump. nystatin [Klayesta] 100,000 unit/gram powder 1 applic TOPICAL QID ergocalciferol (vitamin D2) 1,250 mcg (50,000 unit) capsule 50,000 unit PO WEEKLY Repatha Pushtronex 420 mg/3.5 mL wearable injector 420 mg subcut .BIWEEKLY Tylenol Extra Strength 325 mg 650 mg PO Q8H PRN (Reason: pain) ferrous sulfate [FeroSul] 325 mg (65 mg iron) tablet 650 mg PO DAILY insulin aspart U-100 [Novolog U-100 Insulin aspart] 100 unit/mL solution See Rx Instructions SUB-Q USEASDIRECTD 90 Days Qty: 90 6RF Rx Instructions: up to 100 units daily via pump subcut use as directed; lorazepam 0.5 mg tablet 0.5 mg PO DAILY PRN (Reason: Anxiety) Qty: 30 4RF ondansetron 4 mg tablet,disintegrating 4 mg PO Q8H PRN (Reason: nausea and vomiting) Qty: 20 0RF Discontinued losartan 100 mg tablet See Rx Instructions .ROUTE .COMPLEX Qty: 90 0RF Dose Instruction: TAKE 1 TABLET BY MOUTH DAILY Rx Instructions: TAKE 1 TABLET BY MOUTH DAILY Date of admission: 12/08/24 00:55 Primary Care Provider: Cheikh Ackerman Admitting Provider: Bailey Tello Attending physician on admission: Bailey Tello Condition: Improved
== END 2024-12-17 16:58 | disposition home or self-care (01) | DRG 280 ==
LOC: ANHED 12-08 00:59 → ANHIMU 12-08 02:17 → ANH2MED 12-11 17:43 → ANHIMU 12-13 15:17
PROVIDERS: General Practice; Internal Medicine Hematology & Oncology; Internal Medicine Nephrology; Admitting Provider Internal Medicine; Emergency Provider Emergency Medicine; PCP Family Medicine Adolescent Medicine; Visit Provider Internal Medicine
DX: I13.0 Hypertensive heart and chronic kidney disease with heart failure and stage 1 through stage 4 chronic kidney disease, or unspecified chronic kidney disease (principal); I50.43 Acute on chronic combined systolic (congestive) and diastolic (congestive) heart failure; I21.A1 Myocardial infarction type 2; J18.9 Pneumonia, unspecified organism; N17.9 Acute kidney failure, unspecified; N39.0 Urinary tract infection, site not specified; N18.4 Chronic kidney disease, stage 4 (severe); E87.20 Acidosis, unspecified; I25.5 Ischemic cardiomyopathy; I25.10 Atherosclerotic heart disease of native coronary artery without angina pectoris; I27.20 Pulmonary hypertension, unspecified; D50.9 Iron deficiency anemia, unspecified; E11.22 Type 2 diabetes mellitus with diabetic chronic kidney disease; E78.5 Hyperlipidemia, unspecified; M35.3 Polymyalgia rheumatica; M17.0 Bilateral primary osteoarthritis of knee; G47.33 Obstructive sleep apnea (adult) (pediatric); F32.A Depression, unspecified; F41.9 Anxiety disorder, unspecified; Z20.822 Contact with and (suspected) exposure to COVID-19; I25.2 Old myocardial infarction; Z79.02 Long term (current) use of antithrombotics/antiplatelets
CPT/HCPCS: 36415; 36430; 71046; 78452; 80048; 80053; 80069; 81001; 82274; 82728; 82784; 82948; 83540; 83550; 83605; 83735; 83880; 84100; 84155; 84165; 84238; 84484; 85014; 85018; 85025; 85027; 86140; 86334; 86850; 86900; 86901; 86920; 87040; 87086; 87637; 93005; 93017; 94002; 96365; 96368; 97110; 97116; 97161; 97165; 97530; 97535; 99285; A9270; A9502; C8929; J0456; J0696; J1644; J1756; J1938; J1939; J2260; J2405; J2785; J3420; J7050; P9016; Q5105; Q9957